=== PATIENT | male | born 1945 | race Caucasian/White ===

== ENCOUNTER 2017-09-05 15:49 | Inpatient (IN) | payer OTHER, MEDICARE ==
[~2017-09-05] VITALS: Ht 179.1 cm; Wt 93.0 kg
[~2017-09-05 15:49] MED LIST: ALPRAZOLAM0.5 M4 PO; AMLODIPINE10 MG PO; AMOXICILLIN500 MG PO; APIX5T PO; ASPIRIN CHILDRE81 MG PO; ATORVASTATIN CA10 MG PO; CELLCEPT250 MG PO; CLEOCIN HCL300 MG PO; CORDARONE 200M200 MG PO; COUMADIN 5 MG TA5 MG PO; CYCLOBENZAPRINE10 M3 PO; DICYCLOMINE HCL10 MG PO; DILTIAZEM HCL30 MG PO; ENDOCET 325 MG-1 TA1 PO; FENOFIBRATE48 MG PO; FLOMAX(MONOGRA0.4 MG PO; FLORINEF ACETA0.1 MG PO; FOSRENOL500 MG PO; HUMALOG100 UNIT/1 SC; HYDROXYCHLOROQ200 M2 PO; KEFLEX500 MG PO; LANTUS SOL100 UNIT/1 SC; LANTUS SOLOS100 U/ML SC; LISINOPRIL10 MG PO; LOPRESSOR 25MG25 MG PO; MIDODRINE HCL10 MG PO; OCUVITE WITH L1 EACH PO; PROGRAF1 MG PO; RENAGEL 800MG800 MG PO; RENVELA800 MG PO; SENSIPAR30 MG PO; SENSIPAR60 MG PO; SERTRALINE HYDR50 MG PO; SODIUM BICARBO648 MG PO; TYLENOL XSTR500 MG PO; VITAMIN B121000 MC2 PO
[2017-09-05 16:34] LABS: ABSOLUTE BASOPHIL COUNT 0 /CUMM (0.0-0.2); ABSOLUTE EOSINOPHIL COUNT 0.1 /CUMM (0.0-0.7); ABSOLUTE GRANULOCYTE CT 2.4 /CUMM (1.4-6.5); ABSOLUTE LYMPH COUNT 0.5 /CUMM (1.2-3.4); ABSOLUTE MONOCYTE COUNT 0.4 /CUMM (0.10-0.60); BASOPHIL % 0.5 % (0.0-2.0); EOSINOPHIL % 1.8 % (0-5); GRANULOCYTE % 71.7 % (42.2-75.2); HEMATOCRIT 31.6 % (42-52); MEAN CORPUSCULAR HGB 27.9 PG (27.0-31.0); MEAN CORPUSCULAR HGB CONC 32.5 G/DL (33.0-37.0); MEAN CORPUSCULAR VOLUME 86.1 FL (80.0-94.0); MEAN PLATELET VOLUME 8.4 FL (7.4-10.4); PLATELET COUNT 234 /CUMM (130-400); RBC DISTRIBUTION WIDTH 13.4 % (11.5-14.5); RED BLOOD CELL CT 3.67 /CUMM (4.70-6.10); WHITE BLOOD CELL COUNT 3.3 /CUMM (4.8-10.8)
--- NOTE | 2017-09-05 16:47 | ED ANKLE/FOOT INJURY COMPLAINT ---
History of Present Illness General Chief Complaint: Lower Extremity Problems Stated Complaint: SIB DR GREENBERG FOR EVALPRIOR TO TOE AMPUTATION Source: patient Exam Limitations: no limitations Vital Signs & Intake/Output Vital Signs & Intake/Output Vital Signs Date Time Temp Pulse Resp B/P B/P Pulse O2 O2 Flow FiO2 Mean Ox Delivery Rate 09/05 2200 97.8 60 18 178/64 96 Room Air 09/05 1603 98.8 65 18 107/63 98 Room Air Allergies Coded Allergies: NO KNOWN ALLERGIES (11/19/11) Triage Note: 71 YO MALE SENT TO ER BY DR MORGAN FOR PRE-OP FOR R GREAT TOE AMPUTATION T[place]. PTS TOE WRAPPED IN TRIAGE AND UNABLE TO VISUALIZE. Triage Nurses Notes Reviewed? yes Duration: week(s):, constant Timing: recent history Pain/Injury Location: Right: 1st toe. No Modifying Factors: none HPI: 71-year-old male comes into the emergency room with wound to his right great toe. Patient reports she was sent in here by his certified welding inspector for surgery tomorrow. Patient has had an open wound. He's had some increased swelling and redness. (Nando ROMERO,Elder) Reconcile Medications Alprazolam 0.5 MG TAB 1 TAB PO PRN ANXIETY (Reported) Amiodarone (Cordarone) 200 MG TAB 0.5 TAB PO DAILY A.fib (Reported) Amiodarone (Cordarone) 200 MG TAB 1 TAB PO DAILY HEART (Reported) Apixaban (Eliquis) 5 MG TAB 1 TAB PO BID BLOOD THINNER (Reported) Aspirin (Aspirin*) 81 MG TAB.CHEW 1 TAB PO DAILY HEALTH HEALTH (Reported) Atorvastatin Calcium 10 MG TABLET 1 TAB PO DAILY cholesterol (Reported) Bupropion HCl 100 MG TABLET 1 TAB PO DAILY pain (Reported) Calcitriol 0.25 MCG CAPSULE 1 CAP PO DAILY SUPPLEMENT (Reported) Cephalexin (Keflex) 500 MG CAP 1 TAB PO TID TOE INJURY CINACALCET HCL (Sensipar) 30 MG TAB 1 TAB PO DAILY UNKNOWN (Reported) Cu/Se/Vit A/Vit C/Vit E/Zinc (Ocuvite) 1 TAB TAB 1 TAB PO DAILY VITAMIN ( Reported) Escitalopram Oxalate (Lexapro) 10 MG TABLET 1 TAB PO DAILY anxeity (Reported) Fludrocortisone Acetate 0.1 MG TABLET 1 TAB PO DAILY SUPPLEMENT (Reported) Fludrocortisone Acetate (Florinef Acetate) 0.1 MG TAB 2 TAB PO DAILY UNKNOWN (Reported) Hydroxychloroquine Sulfate 200 MG TABLET 1 TAB PO DAILY UNKNOWN (Reported) Insulin Glargine, Recombinan (Lantus) (Unknown Strength) TIMMY (Unknown Dose) DIABETES (Reported) Insulin Lispro, Recombinant (Humalog) (Unknown Strength) RK (Unknown Dose) DIABETES (Reported) Metoprolol Succ XL (Toprol XL) 25 MG TAB 0.5 TAB PO DAILY HEART HEALTH ( Reported) Metoprolol Tartrate (Lopressor) 25 MG TAB 1 TAB PO AT BEDTIME HEART (Reported ) MIDODRINE HCL (Midodrine HCl) 10 MG TAB 1 TAB PO BID UNKNOWN (Reported) Mycophenolate Mofetil (CellCept) 250 MG CAP 4 TAB PO BID IMMUNOSUPPRESSANT ( Reported) SERTRALINE HCL (Sertraline Hydrochloride) 50 MG TAB 1 TAB PO DAILY UNKNOWN ( Reported) Sodium Bicarbonate 648 MG TAB 1 TAB PO BID UNKNOWN (Reported) Tacrolimus (Envarsus XR) 0.75 MG TAB.ER.24H 2 TAB PO DAILY TRANSPLANT ( Reported) Tacrolimus (Envarsus XR) 1 MG TAB.ER.24H 2 TAB PO DAILY TRANSPLANT (Reported) Tacrolimus (Prograf) 1 MG CAP 3 CAP PO BID UNKNOWN (Reported) Tamsulosin Hydrochloride (Flomax) 0.4 MG CAP 1 CAP PO AT BEDTIME UNKNOWN ( Reported) (Fina RANKIN,Ranjeet Hidalgo) Past History Travel History Traveled to [place] past 21 day No Medical History Any Pertinent Medical History? 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 No (Elder Maguire) Review of Systems Review of Systems Constitutional: Reports: no symptoms. EENTM: Reports: no symptoms. Respiratory: Reports: no symptoms. Cardiovascular: Reports: no symptoms. GI: Reports: no symptoms. Genitourinary: Reports: no symptoms. Musculoskeletal: Reports: see HPI. Skin: Reports: see HPI. Neurological/Psychological: Reports: no symptoms. Hematologic/Endocrine: Reports: no symptoms. Immunologic/Allergic: Reports: no symptoms. All Other Systems: Reviewed and Negative (Elder Maguire) Physical Exam Physical Exam General Appearance: well developed/nourished, mild distress Head: atraumatic Eyes: Bilateral: normal appearance. Ears, Nose, Throat: normal ENT inspection, hearing grossly normal Neck: normal inspection Cardiovascular/Respiratory: no respiratory distress Back: normal inspection Leg/Knee/Thigh Left: normal inspection Leg/Knee/Thigh Right: normal inspection Foot Right: Erythema and warmth to the dorsal aspect of right foot, open wound to right great toe, no active discharge, Tendon: normal tendon function Psychiatric: awake, alert, oriented x 3 Skin: intact, normal color, warm/dry (Elder Maguire) Progress Differential Diagnosis: arterial insufficiency, cellulitis, septic arthritis, dislocation, sprain, osteomyelitis Plan of Care: Orders Procedure Date/time Status Nothing by Mouth 09/06 B Active CBC WITHOUT DIFFERENTIAL 09/06 06 Active BASIC ELECTROLYTES PLUS BUN&CR 09/06 06 Active Weight 09/05 2251 Active Vital Signs 09/05 225 Active Teach/Educate 09/05 2250 Active Pain Treatment and Response 09/05 2250 Active Nutritional Intake, Monitor 09/05 225 Active Isolation 09/05 225 Active Intake & Output 09/05 225 Active Patient Care Conference 09/05 225 Active Activity/Ambulation 09/05 225 Active FingerStick- Glucose 09/05 2121 Active EKG 09/05 2053 Active Intake & Output 09/06 2039 Active Saline Lock 09/06 2027 Active Pathway - chart 09/06 2027 Active House Staff 09/06 2027 Active OXYGEN SETUP (GEN) 09/06 1919 Active Saline Lock 09/06 1919 Active Admit to inpatient 09/06 1919 Active Vital Signs 09/06 1919 Active Activity/Ambulation 09/06 1919 Active Code Status 09/06 1919 Active Patient Data 09/05 1907 Active BLOOD CULTURE 09/05 1612 Active WESTERGREN SED RATE 09/05 1608 Complete C-REACTIVE PROTEIN 09/05 1608 Complete COMPREHENSIVE METABOLIC PANEL 09/05 1608 Complete CBC WITHOUT DIFFERENTIAL 09/05 1608 Complete VTE Mechanical Prophylaxis 09/05 UNK Active Current Medications Sig/Ira Start time Last Medication Dose Stop Time Status Admin Atorvastatin Calcium 10 MG 1700 09/06 1700 AC (Lipitor) Heparin Sodium 5,000 UNIT Q8 09/06 1400 AC (Porcine) Alprazolam 0.5 MG DAILY 09/06 1000 AC (Xanax) 09/13 0959 Amiodarone HCl 100 MG DAILY 09/06 1000 AC (Cordarone) Aspirin 81 MG DAILY 09/06 1000 AC (Aspirin) Bupropion HCl 100 MG DAILY 09/06 1000 AC (Wellbutrin) Escitalopram Oxalate 10 MG DAILY 09/06 1000 AC (Lexapro) Fludrocortisone 100 MCG DAILY 09/06 1000 AC Acetate (Florinef 100 Mcg Tab) Hydroxychloroquine 200 MG DAILY 09/06 1000 AC Sulfate (Plaquenil 200MG Tab) Metoprolol Succinate 12.5 MG DAILY 09/06 1000 AC (Toprol XL) Insulin Aspart 0 TIDAC 09/06 0800 AC (NovoLOG) Mycophenolate Mofetil 1,000 MG BID 09/05 2200 AC 09/05 (CellCept) 2224 Dextrose/Sodium 1,000 ML .Q20H 09/05 2030 AC 09/05 Chloride 2130 (D5W-1/2 Normal Saline 1000ML) Laboratory Tests 09/05/17 1614: Anion Gap 14, Estimated GFR 46 L, BUN/Creatinine Ratio 26.7 H, Glucose 153 H, Calcium 8.6, Total Bilirubin 0.3, AST 15 L, ALT 19 L, Alkaline Phosphatase 71, C-Reactive Prot, Quant 5.7 H, Total Protein 5.7 L, Albumin 3.6, Globulin 2.1, Albumin/Globulin Ratio 1.7, CBC w Diff MAN DIFF ORDERED, RBC 3.67 L, MCV 86.1, MCH 27.9, MCHC 32.5 L, RDW 13.4, MPV 8.4, Gran % 71.7, Lymphocytes % 14.0 L, Monocytes % 12.0 H, Eosinophils % 1.8, Basophils % 0.5, Absolute Granulocytes 2.4, Segmented Neutrophils 61, Band Neutrophils 4, Absolute Lymphocytes 0.5 L, Lymphocytes 11 L, Monocytes 19 H, Absolute Monocytes 0.4, Absolute Eosinophils 0.1, Basophils 5 H, Absolute Basophils 0, Platelet Estimate VERIFIED BY SMEAR, Normocytic RBCs VERIFIED, Normochromic RBCs VERIFIED, ESR Westergren 48 H, Fld Total RBCs Counted 100 Microbiology 09/05 2057 BLOOD: Blood Culture - RECD 09/05 1613 BLOOD: Blood Culture - RECD Diagnostic Imaging: Viewed by Me: MRI. Discussed w/RAD: MRI. Radiology Impression: PATIENT: BOBBI VELARDE PRESENT AGE: 71 PATIENT ACCOUNT NO: [id number] : 46 LOCATION: [facility] ORDERING PHYSICIAN: Elder ROMERO SERVICE DATE: 09/05/17 EXAM TYPE: MRI - MRI-RT FOOT W/O BRIAN EXAMINATION: MR FOOT WITHOUT CONTRAST, RIGHT CLINICAL INFORMATION: Right great toe swelling and pain. COMPARISON: None. TECHNIQUE: MRI of the foot without contrast was obtained using routine sequences. FINDINGS: MUSCLES/TENDONS: There is fatty atrophy and edema involving the visualized forefoot muscles. This is a nonspecific finding but could be secondary to denervation injury. LIGAMENTS: Intact. ARTICULAR CARTILAGE/BONE: There is diffuse fairly intense bone marrow edema throughout the distal phalanx of the great toe suspicious for osteomyelitis. 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 JOINT FLUID/BURSA/SOFT TISSUES: There is skin irregularity and apparent skin defect at the distal end of the great toe extending to the distal tuft of the distal phalanx. IMPRESSION: 1. Skin ulcer/defect at the distal end of the great toe which appears to extend down to the surface of the distal tuft of the distal phalanx. Diffuse intense bone marrow edema in the distal phalanx suspicious for osteomyelitis. 2. 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 3. Diffuse fatty atrophy and edema involving the visualized foot muscles which is a nonspecific finding but could be secondary to denervation injury. DICTATED BY: Gatito Frazier MD DATE/TIME DICTATED:09/05/171703 MOUNTER SAXOPHONES: PETRA DATE/TIME TRANSCRIBED:09/05/171703 CONFIDENTIAL, DO NOT COPY WITHOUT APPROPRIATE AUTHORIZATION. <Electronically signed in Other Vendor System> SIGNED BY: Gatito Frazier MD 09/05/17 172 (Nando ROMERO,Elder) Departure Departure Disposition: STILL A PATIENT Condition: Stable Clinical Impression Primary Impression: Osteomyelitis of foot, right, acute Referrals: Lakeisha RANKIN,Gilbert Mark (PCP/Family) Departure Forms: Customer Survey General Discharge Information Admission Note Spoke With: Lakeisha RANKIN,Gilbert Mark Documentation of Exam: Documentation of any treatments & extenuating circumstances including Concerns Regarding Discharge (functional status, medication knowledge or non-compliance, living conditions, etc.) that warrant an admission rather than observation: Patient will require IV antibiotics. Patient is going to go to the operating room tomorrow for partial amputation. Bone culture. Infectious disease consultation. Podiatry consultation. (Nando ROMERO,Elder) PA/ASIAN STUDIES PROFESSOR Co-Sign Statement Statement: ED Attending supervision documentation- [x] I saw and evaluated the patient. I have also reviewed all the pertinent lab results and diagnostic results. I agree with the findings and the plan of care as documented in the PA's/ASIAN STUDIES PROFESSOR's documentation. pt with suspicion of osteo on right foot... pt merits admission for iv abx, further evaluation. [] I have reviewed the ED Record and agree with the PA's/ASIAN STUDIES PROFESSOR's documentation. [] Additions or exceptions (if any) to the PAs/ASIAN STUDIES PROFESSOR's note and plan are summarized below: [] (Fina RANKIN,Ranjeet Hidalgo)
--- NOTE | 2017-09-05 17:21 | MRI REPORT ---
EXAMINATION: MR FOOT WITHOUT CONTRAST, RIGHT CLINICAL INFORMATION: Right great toe swelling and pain. COMPARISON: None. TECHNIQUE: MRI of the foot without contrast was obtained using routine sequences. FINDINGS: MUSCLES/TENDONS: There is fatty atrophy and edema involving the visualized forefoot muscles. This is a nonspecific finding but could be secondary to denervation injury. LIGAMENTS: Intact. ARTICULAR CARTILAGE/BONE: There is diffuse fairly intense bone marrow edema throughout the distal phalanx of the great toe suspicious for osteomyelitis. 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 JOINT FLUID/BURSA/SOFT TISSUES: There is skin irregularity and apparent skin defect at the distal end of the great toe extending to the distal tuft of the distal phalanx. IMPRESSION: 1. Skin ulcer/defect at the distal end of the great toe which appears to extend down to the surface of the distal tuft of the distal phalanx. Diffuse intense bone marrow edema in the distal phalanx suspicious for osteomyelitis. 2. 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 3. Diffuse fatty atrophy and edema involving the visualized foot muscles which is a nonspecific finding but could be secondary to denervation injury.
--- NOTE | 2017-09-05 20:30 | History & Physical ---
Bambi Dalton MD 09/05/17 2030: General Information and HPI MD Statement: I have seen and personally examined BOBBI VELARDE and documented this H&P. The patient is a 71 year old M who presented with a patient stated chief complaint of R great toe erythema, pain, open wounds. Source of Information: patient, old records, PCP Exam Limitations: no limitations History of Present Illness: Patient is a 71-year-old male with a past medical history significant for stroke 8 years ago with no residual neuro deficit, hypertension, hyperlipidemia, A. fib on Eliquis, previous toe amputations secondary to IDDM, right wrist surgery secondary to carpal tunnel syndrome, previous dialysis patient, now renal transplant 3 years ago on multiple immunosuppressive drugs, parathyroid gland surgery that is sent in by Dr. Dye for evaluation prior to right great toe amputation. The patient states about 3 weeks ago he was doing pilates-like exercises at home when he twisted his toe. He states that "a couple layers of skin came off". He states that soon after he saw Dr. Dye who put him on antibiotics for 2 week duration. However the toe began to get more erythematous and the open wound persisted. The patient states that he has decreased sensation throughout his feet secondary to his diabetes. He denies having fever , chills, diaphoresis, nausea, vomiting, chest pain, shortness of breath. No diarrhea, constipation, cough. 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 He had an echocardiogram done in 2012 which showed mild diastolic dysfunction and an ejection fraction of 60% but with concentric hypertrophy of the left ventricular chamber that is at least moderate in severity. He has been on Eliquis for 8 years since his A. fib was diagnosed back in 2009 when he had his stroke. The patient notes no use of tobacco, drugs, alcohol. Allergies/Medications Allergies: Coded Allergies: NO KNOWN ALLERGIES (11/19/11) Home Med list Alprazolam 0.5 MG TAB 1 TAB PO PRN ANXIETY (Reported) Amiodarone (Cordarone) 200 MG TAB 0.5 TAB PO DAILY A.fib (Reported) Amiodarone (Cordarone) 200 MG TAB 1 TAB PO DAILY HEART (Reported) Apixaban (Eliquis) 5 MG TAB 1 TAB PO BID BLOOD THINNER (Reported) Aspirin (Aspirin*) 81 MG TAB.CHEW 1 TAB PO DAILY HEALTH HEALTH (Reported) Atorvastatin Calcium 10 MG TABLET 1 TAB PO DAILY cholesterol (Reported) Bupropion HCl 100 MG TABLET 1 TAB PO DAILY pain (Reported) Calcitriol 0.25 MCG CAPSULE 1 CAP PO DAILY SUPPLEMENT (Reported) Cephalexin (Keflex) 500 MG CAP 1 TAB PO TID TOE INJURY CINACALCET HCL (Sensipar) 30 MG TAB 1 TAB PO DAILY UNKNOWN (Reported) Cu/Se/Vit A/Vit C/Vit E/Zinc (Ocuvite) 1 TAB TAB 1 TAB PO DAILY VITAMIN ( Reported) Escitalopram Oxalate (Lexapro) 10 MG TABLET 1 TAB PO DAILY anxeity (Reported) Fludrocortisone Acetate 0.1 MG TABLET 1 TAB PO DAILY SUPPLEMENT (Reported) Fludrocortisone Acetate (Florinef Acetate) 0.1 MG TAB 2 TAB PO DAILY UNKNOWN (Reported) Hydroxychloroquine Sulfate 200 MG TABLET 1 TAB PO DAILY UNKNOWN (Reported) Insulin Glargine, Recombinan (Lantus) (Unknown Strength) TIMMY (Unknown Dose) DIABETES (Reported) Insulin Lispro, Recombinant (Humalog) (Unknown Strength) RK (Unknown Dose) DIABETES (Reported) Metoprolol Succ XL (Toprol XL) 25 MG TAB 0.5 TAB PO DAILY HEART HEALTH ( Reported) Metoprolol Tartrate (Lopressor) 25 MG TAB 1 TAB PO AT BEDTIME HEART (Reported ) MIDODRINE HCL (Midodrine HCl) 10 MG TAB 1 TAB PO BID UNKNOWN (Reported) Mycophenolate Mofetil (CellCept) 250 MG CAP 4 TAB PO BID IMMUNOSUPPRESSANT ( Reported) SERTRALINE HCL (Sertraline Hydrochloride) 50 MG TAB 1 TAB PO DAILY UNKNOWN ( Reported) Sodium Bicarbonate 648 MG TAB 1 TAB PO BID UNKNOWN (Reported) Tacrolimus (Envarsus XR) 0.75 MG TAB.ER.24H 2 TAB PO DAILY TRANSPLANT ( Reported) Tacrolimus (Envarsus XR) 1 MG TAB.ER.24H 2 TAB PO DAILY TRANSPLANT (Reported) Tacrolimus (Prograf) 1 MG CAP 3 CAP PO BID UNKNOWN (Reported) Tamsulosin Hydrochloride (Flomax) 0.4 MG CAP 1 CAP PO AT BEDTIME UNKNOWN ( Reported) Compliance With Home Meds: GOOD Past History Travel History Traveled to [place] past 21 day No Medical History Neurological: STROKE EENT: NONE Cardiovascular: hypertension, hyperlipidemia, AFIB (ON COUMADIN) Respiratory: NONE Gastrointestinal: NONE Hepatic: NONE Renal: renal transplant Musculoskeletal: fracture, R ARM FRACTURE Psychiatric: NONE Endocrine: IDDM Blood Disorders: NONE Cancer(s): NONE 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 Review of Systems Review of Systems Constitutional: Reports: no symptoms. EENTM: Reports: no symptoms. Cardiovascular: Reports: no symptoms. Respiratory: Reports: no symptoms. GI: Reports: no symptoms. Genitourinary: Reports: no symptoms. Musculoskeletal: Reports: see HPI. Skin: Reports: see HPI, lesions. Neurological/Psychological: Reports: no symptoms. Hematologic/Endocrine: Reports: no symptoms. Immunologic/Allergic: Reports: no symptoms. Exam & Diagnostic Data Last 24 Hrs of Vital Signs/I&O Vital Signs Date Time Temp Pulse Resp B/P B/P Pulse O2 O2 Flow FiO2 Mean Ox Delivery Rate 09/05 2306 97.4 67 16 148/62 95 Room Air 09/05 2200 97.8 60 18 178/64 96 Room Air 09/05 1603 98.8 65 18 107/63 98 Room Air Intake & Output 09/06 0800 03 0000 09/05 1600 Intake Total 50 Output Total Balance 50 Intake, IV 50 Intake, Oral 0 Patient 202 lb Weight Weight Reported by Patient Measurement Method Physical Exam General Appearance Alert, Oriented X3, Cooperative, No Acute Distress Skin No Rashes, erythema and warmth to dorsal aspect of right foot with right hallucis open wound, no discharge, no necrotic changes. Skin Temp/Moisture Exam: Warm/Dry Sepsis Skin Exam (color): Normal for Ethnicity HEENT Atraumatic, PERRLA, EOMI, Mucous Membr. moist/pink Neck Supple Cardiovascular Regular Rate, Normal S1, Normal S2, No Murmurs Lungs Clear to Auscultation, Normal Air Movement Abdomen Normal Bowel Sounds, Soft, No Hepatospenomegaly, No Masses, some tenderness to right lower abdomen where kidney transplant was placed Neurological Normal Speech, decreased sensation to lower ext bilaterally Extremities No Clubbing, No Cyanosis, No Edema Vascular Normal Pulses Sepsis Peripheral Pulse Location: Radial Sepsis Peripheral Pulse Exam: Normal Sepsis Cap Refill Exam: <2 Sec Last 24 Hrs of Labs/Joel: Laboratory Tests 09/05/171613: Anion Gap 14, Estimated GFR 46 L, BUN/Creatinine Ratio 26.7 H, Glucose 153 H, Calcium 8.6, Total Bilirubin 0.3, AST 15 L, ALT 19 L, Alkaline Phosphatase 71, C-Reactive Prot, Quant 5.7 H, Total Protein 5.7 L, Albumin 3.6, Globulin 2.1, Albumin/Globulin Ratio 1.7, PT 22.8 H, INR 2.08 H, APTT 32, CBC w Diff MAN DIFF ORDERED, RBC 3.67 L, MCV 86.1, MCH 27.9, MCHC 32.5 L, RDW 13.4, MPV 8.4, Gran % 71.7, Lymphocytes % 14.0 L, Monocytes % 12.0 H, Eosinophils % 1.8, Basophils % 0.5, Absolute Granulocytes 2.4, Segmented Neutrophils 61, Band Neutrophils 4, Absolute Lymphocytes 0.5 L, Lymphocytes 11 L, Monocytes 19 H, Absolute Monocytes 0.4, Absolute Eosinophils 0.1, Basophils 5 H, Absolute Basophils 0, Platelet Estimate VERIFIED BY SMEAR, Normocytic RBCs VERIFIED, Normochromic RBCs VERIFIED, ESR Westergren 48 H, Fld Total RBCs Counted 100 Microbiology 09/05 2057 BLOOD: Blood Culture - RECD 09/05 1613 BLOOD: Blood Culture - RECD Assessment/Plan Assessment: Patient is a 71-year-old male with a past medical history significant for stroke 8 years ago with no residual neuro deficit, hypertension, hyperlipidemia, A. fib on Eliquis, previous toe amputations secondary to IDDM, right wrist surgery secondary to carpal tunnel syndrome, previous dialysis patient, now renal transplant 3 years ago on multiple immunosuppressive drugs, parathyroid gland surgery that is sent in by Dr. Dye for evaluation prior to right great toe amputation. Patient failed antibiotic treatment 1 week ago. He has no systemic symptoms. In the ED, he is afebrile, blood pressure fairly stable, good oxygen saturation on room air, pulse in the 60s, respiratory rate around 18. Labs showed a WBC count of 3.3, hemoglobin of 10.3 with a normal MCV. BUN 40, creatinine 1.5, CRP 5.7, ESR 48. Foot MRI showed suspicion of osteomyelitis and evidence of innervation injury. The patient will go to the OR with Dr. Dye for debridement of the wound and potential amputation. This is a low risk surgery. The patient has no history of VT, no history of congestive heart failure except mild diastolic dysfunction, normal creatinine, but does have a history of stroke and is on insulin. Thus the patient has class III risk which corresponds to a risk of major cardiac event of 6.6%. Plan Evidence of osteomyelitis in right hallucis -Patient will be nothing by mouth at midnight for debridement with Dr. Dye tomorrow -Patient will be put on Accu-Cheks and insulin to reflect this -Follow blood cultures 2 -PT/PTT in preparation for surgery -EKG History of renal transplant -Continue patient on hydroxychloroquine 200 mg daily -Continue Mycophenolate 1 g twice a day History of atrial fibrillation -Hold patient's Eliquis as he will go for surgery tomorrow -Give patient amiodarone 100 mg daily IDDM -Patient will be nothing by mouth and dosed insulin accordingly -D5 half-normal saline at a rate of 50 -Please switch the order when patient is eating after surgery Chronic medical problems -Start patient on 10 mg Lipitor for his hyperlipidemia -Start patient on metoprolol 12.5 daily for his hypertension -Start patient on Lexapro 10 mg and Wellbutrin 100 mg and Xanax 0.5 when necessary for anxiety -Start patient on 81 mg aspirin for heart health DVT prophylaxis with Alps Nothing by mouth for surgery Full code DVT prophylaxis: Patient was given heparin tonight but will be held tomorrow as patient will go for surgery. As Ranked By This Provider Problem List: 1. Osteomyelitis of foot, right, acute 2. Injury of toe Core Measures/Misc (03/20) Acute Coronary Syndrome ACS Diagnosis: No Congestive Heart Failure Congestive Heart Failure Diagnosis No Cerebrovascular Accident CVA/TIA Diagnosis: No VTE (View Protocol) VTE Risk Factors Trauma No Mechanical VTE Prophylaxis d/t N/A MechProphylax Ordered No VTE Pharm Prophylaxis d/t Surgical Contraindication Sepsis (View protocol) Sepsis Present: No Kasie Cerda 09/06/17 0741: Resident Review Statement Resident Statement: examined this patient, discussed with buyer internship, agreed with buyer internship, discussed with family, reviewed EMR data (avail), reviewed images, amended to note [facility]06[facility]17 7090: Attending MD Review Statement Attending Statement Attending MD Statement: examined this patient, discuss w/resident/PA/CARBONATION EQUIPMENT OPERATOR, agreed w/resident/PA/CARBONATION EQUIPMENT OPERATOR, discussed with family, reviewed EMR data (avail), discussed with nursing, discussed with case mgmt, reviewed images, amended to note Attending Assessment/Plan: Seen and examined independently Pt s/p renal transplant with infected toe with osteo DM insulin requiring PVD Pafib on eliquis Depression REC ADmit ID eval Hold abx cont all meds HOld anticoag IVF
[2017-09-05] MEDS ORDERED: ATORVASTATIN CA10 M1 PO (21:06)
[2017-09-05] MEDS ORDERED: FLUDROCORTISON0.1 M1 PO (21:09)
[2017-09-05] MEDS ORDERED: TOPROL XL25 M1 PO (21:12)
[2017-09-05] MEDS ORDERED: ENVARSUS XR0.75 MG PO (21:14)
[2017-09-05] MEDS ORDERED: ENVARSUS XR1 MG PO (21:14)
[2017-09-05] MEDS ORDERED: ASPIRIN EC81 M1 PO (21:15)
[2017-09-05] MEDS ORDERED: CALCITRIOL0.25 MC1 PO (21:16)
[2017-09-05] MEDS ORDERED: AMIODARONE HCL200 M1 PO (21:18)
[2017-09-05] MEDS ORDERED: BUPROPION HCL100 M2 PO (21:19)
[2017-09-05] MEDS ORDERED: LEXAPRO20 M1 PO (21:21)
[2017-09-05 23:06] VITALS: BP 148/62
[2017-09-05 23:19] LABS: PT 22.8 SEC (9.4-12.5); PTT 32 SEC (25-37)
[2017-09-06 07:22] VITALS: BP 170/70
[2017-09-06 08:45] LABS: ABSOLUTE BASOPHIL COUNT 0 /CUMM (0.0-0.2); ABSOLUTE EOSINOPHIL COUNT 0.1 /CUMM (0.0-0.7); ABSOLUTE LYMPH COUNT 0.5 /CUMM (1.2-3.4); ABSOLUTE MONOCYTE COUNT 0.4 /CUMM (0.10-0.60); BASOPHIL % 0.9 % (0.0-2.0); EOSINOPHIL % 2.8 % (0-5); GRANULOCYTE % 67.2 % (42.2-75.2); HEMATOCRIT 31.3 % (42-52); MEAN CORPUSCULAR HGB CONC 33.1 G/DL (33.0-37.0); MEAN CORPUSCULAR VOLUME 84.6 FL (80.0-94.0); MEAN PLATELET VOLUME 8.7 FL (7.4-10.4); PLATELET COUNT 212 /CUMM (130-400); RBC DISTRIBUTION WIDTH 13.3 % (11.5-14.5)
--- NOTE | 2017-09-06 11:14 | Operative Report ---
Operative/Inv Procedure Report Surgery Date: 09/06/17 Name of Procedure: 1 open incision and drainage deep to the deep fascia with exposure of the extensor and flexor tendon and tendon sheath multiple sites right foot 2 hallux amputation right foot 3 intraoperative administration of ankle block anesthesia 4 excisional debridement Pre-Operative Diagnosis: 1 open necrotic wound right foot 2 osteomyelitis right foot 3 diabetic peripheral neuropathy Post-Operative Diagnosis: The same Estimated Blood Loss: less than 50ml Surgeon/Wave Guide Assembler: ROB PITTMAN DPM Anesthesia: moderate sedation, block Operative/Procedure Note Note: After obtaining informed consent the patient was brought to the operating room and placed on the operating table in the supine position. The patient isn't securely fastened to the operating table utilizing safety belt. After administration of IV sedation, 10 mL of 0.5% Marcaine plain was infiltrated about the patient's right ankle. The right foot and ankle within scrubbed prepped and draped in usual aseptic manner. Attention directed the distal right foot, where a large full-thickness chronic was identified. A 15 blade visualized sharply revised skin margins. Dissection was then carried down deep to the D fashion with exposure of the extensor and flexor tendon and tendon sheath multiple sites, both flexion and distally. All necrotic nonviable infected tissue sharply evacuated wound bed. Dissection and continued proximally to the joint where the digit was disarticulated and passed from the operative field. Specimen was sent for both microbiologic and pathologic inspection. Nipple was then irrigated with 3 L normal sterile saline infusion 50,000 units of bacitracin. Following this, the foot was redraped and surgeon's top was changed clean gloves. Any bleeding vessels identified were cauterized a lace encountered. Wound was then packed with wet-to-dry dressing and 3-0 nylon retention sutures were placed. The foot was dressed with 4 x 4's Kerlix and Qasim wrap. Patient noted tolerate both procedure and anesthesia well and the patient was transported from the operating room to recovery with vital signs stable.
--- NOTE | 2017-09-06 11:19 | PN- Housestaff ---
Yesenia Klein MD,Ami 09/06/17 1118: Subjective Follow-up For: R Toe osteomyelitis Subjective: Patient visited today, was lying in bed comfortably in no acute distress, was alert and oriented. Admitted overnight for R toe osteomyelitis and is NPO. No fever or chills, no shortness of breathing, no chest pain, no other events. ID consult was placed considering h/o renal transplant. Review of Systems Constitutional: Reports: see HPI. Objective Last 24 Hrs of Vital Signs/I&O Vital Signs Date Time Temp Pulse Resp B/P B/P Pulse O2 O2 Flow FiO2 Mean Ox Delivery Rate 09/06 1238 98.0 54 20 179/86 98 Room Air 09/06 0936 60 149/74 09/06 0934 60 149/74 09/06 0722 97.8 59 18 170/70 98 Room Air / 2306 97.4 67 16 148/62 95 Room Air / 2200 97.8 60 18 178/64 96 Room Air / 1603 98.8 65 18 107/63 98 Room Air Intake & Output 09/06 1600 09/06 0800 09/06 0000 Intake Total 400 50 Output Total Balance 400 50 Intake, IV 400 50 Intake, Oral 0 0 Patient 216 lb 202 lb Weight Weight Reported by Patient Measurement Method Physical Exam General Appearance: Alert, Oriented X3, Cooperative, No Acute Distress Skin: R toe chronic wound, No discharge or necrotic tissue Skin Temp/Moisture Exam: Warm/Dry Sepsis Skin Exam (color): Normal for Ethnicity HEENT: Atraumatic, EOMI, Mucous Membr. moist/pink Cardiovascular: Regular Rate, Normal S1, Normal S2 Lungs: Clear to Auscultation, Normal Air Movement Abdomen: Soft, No Tenderness Current Medications: Current Medications Sig/Ira Start time Last Medication Dose Route Stop Time Status Admin Alprazolam 0.5 MG DAILY 09/06 1000 AC PO 09/13 0959 Amiodarone HCl 100 MG DAILY 09/06 1000 AC 09/06 PO 0934 Apixaban 5 MG BID 09/07 1000 UNVr PO Aspirin 81 MG DAILY 09/06 1000 AC 09/06 PO 0933 Atorvastatin Calcium 10 MG 1700 / 1700 AC PO Bupropion HCl 100 MG DAILY 09/06 1000 AC 09/06 PO 0936 Dextrose/Sodium 1,000 ML .Q20H 09/05 2030 AC 09/05 Chloride IV 2130 Escitalopram Oxalate 10 MG DAILY 09/06 1000 AC PO Fludrocortisone 100 MCG DAILY 09/06 1000 AC 09/06 Acetate PO 0934 Heparin Sodium 5,000 UNIT Q8 09/06 1400 AC (Porcine) SC Heparin Sodium 0 .STK-MED ONE 09/05 2131 DC (Porcine) .ROUTE Hydroxychloroquine 200 MG DAILY 09/06 1000 AC 09/06 Sulfate PO 0935 Insulin Aspart 0 TIDAC 09/06 1700 AC SC Insulin Aspart 0 TIDAC 09/06 0800 CAN SC Insulin Human Regular 0 Q6 09/06 0022 DC 09/06 SC 0606 Lorazepam 0 .STK-MED ONE 09/05 1622 DC PO Lorazepam 1 MG ONE ONE 09/05 1615 DC 09/05 PO 09/05 1616 1617 Metoprolol Succinate 12.5 MG DAILY 09/06 1000 AC 09/06 PO 0936 Mycophenolate Mofetil 1,000 MG BID 09/05 2200 AC 09/06 PO 0933 Last 24 Hrs of Lab/Joel Results Last 24 Hrs of Labs/Mics: Laboratory Tests 09/06/17 0738: Anion Gap 12, Estimated GFR 55 L, BUN/Creatinine Ratio 26.9 H, CBC w Diff NO MAN DIFF REQ, RBC 3.70 L, MCV 84.6, MCH 28.0, MCHC 33.1, RDW 13.3, MPV 8.7, Gran % 67.2, Lymphocytes % 16.9 L, Monocytes % 12.2 H, Eosinophils % 2.8, Basophils % 0.9, Absolute Granulocytes 2.0, Absolute Lymphocytes 0.5 L, Absolute Monocytes 0.4, Absolute Eosinophils 0.1, Absolute Basophils 0 09/05/17 1614: Anion Gap 14, Estimated GFR 46 L, BUN/Creatinine Ratio 26.7 H, Glucose 153 H, Calcium 8.6, Total Bilirubin 0.3, AST 15 L, ALT 19 L, Alkaline Phosphatase 71, C-Reactive Prot, Quant 5.7 H, Total Protein 5.7 L, Albumin 3.6, Globulin 2.1, Albumin/Globulin Ratio 1.7, PT 22.8 H, INR 2.08 H, APTT 32, CBC w Diff MAN DIFF ORDERED, RBC 3.67 L, MCV 86.1, MCH 27.9, MCHC 32.5 L, RDW 13.4, MPV 8.4, Gran % 71.7, Lymphocytes % 14.0 L, Monocytes % 12.0 H, Eosinophils % 1.8, Basophils % 0.5, Absolute Granulocytes 2.4, Segmented Neutrophils 61, Band Neutrophils 4, Absolute Lymphocytes 0.5 L, Lymphocytes 11 L, Monocytes 19 H, Absolute Monocytes 0.4, Absolute Eosinophils 0.1, Basophils 5 H, Absolute Basophils 0, Platelet Estimate VERIFIED BY SMEAR, Normocytic RBCs VERIFIED, Normochromic RBCs VERIFIED, ESR Westergren 48 H, Fld Total RBCs Counted 100 Microbiology 09/06 1050 EXTREMITIE: Gross Specimen Examination - RECD 09/06 105 EXTREMITIE: Gram Stain - RECD 09/05 2057 BLOOD: Blood Culture - RES 09/05 161 BLOOD: Blood Culture - RES Assessment/Plan Assessment: Patient is a 71-year-old male presented for surgery due to right toe osteomyelitis failed antibiotic treatment 1 week ago PMH: stroke 8 years ago with no residual neuro deficit, hypertension, hyperlipidemia, A. 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 Labs showed a WBC count of 3.3, hemoglobin of 10.3 with a normal MCV. BUN 40, creatinine 1.5, CRP 5.7, ESR 48. Foot MRI showed suspicion of osteomyelitis and evidence of innervation injury. The patient will go to the OR with Dr. Dye for debridement of the wound and potential amputation. This is a low risk surgery. The patient has no history of SD, no history of congestive heart failure except mild diastolic dysfunction, normal creatinine, but does have a history of stroke and is on insulin. Thus the patient has class III risk which corresponds to a risk of major cardiac event of 6.6%. Patient was admitted to general medicine floor for management of following conditions: Evidence of osteomyelitis in right hallucis Patient underwent surgery on 09/06/2017: 1 open incision and drainage deep to the deep fascia with exposure of the extensor and flexor tendon and tendon sheath multiple sites right foot 2 hallux amputation right foot 3 intraoperative administration of ankle block anesthesia 4 excisional debridement -continue admit to GM floor -Follow blood cultures 2 -ID consult regarding antibtiotic treatment History of renal transplant -Continue patient on hydroxychloroquine 200 mg daily -Continue Mycophenolate 1 g twice a day History of atrial fibrillation -Hold patient's Eliquis, plan to start tomorrow AM -Give patient amiodarone 100 mg daily IDDM -Accuchecks and sliding scale Chronic medical problems -Start patient on 10 mg Lipitor for his hyperlipidemia -Start patient on metoprolol 12.5 daily for his hypertension -Start patient on Lexapro 10 mg and Wellbutrin 100 mg and Xanax 0.5 when necessary for anxiety -Start patient on 81 mg aspirin for heart health DVT prophylaxis with Alps Diabetic diet Full code Problem List: 1. Osteomyelitis of foot, right, acute Pain Ratin Pain Location: right foot Pain Goal: Pain 4 or less Pain Plan: COntinue current plan Tomorrow's Labs & Rationales: BEP CBC Lakeisha RANKIN,[facility] 09/06/17 1238: Attending MD Review Statement Attending Statement Attending MD Statement: examined this patient, discuss w/resident/PA/MAP COLORER, agreed w/resident/PA/MAP COLORER, discussed with family, reviewed EMR data (avail), discussed with nursing, discussed with case mgmt, reviewed images, amended to note Attending Assessment/Plan: Stable TO the OR today ID to see Abx after the procedure will follow Strict sugar control
[2017-09-06 12:38] VITALS: BP 179/86
[2017-09-06 14:42] VITALS: BP 110/70; BP 130/75
--- NOTE | 2017-09-06 16:53 | Cons- Infect Disease ---
General Information and HPI Consulting Request Date of Consult: 09/06/17 Requested By: Shahana Canada MD Reason for Consult: Osteomyelitis of the right great toe Source of Information: patient History of Present Illness: This is a 71-year-old man with a history of diabetes, end-stage renal disease, previously on dialysis and status post a renal transplant 3 years prior to admission, maintained on immunosuppressive therapy with Tacrolimus and CellCept, hypertension, hyperlipidemia, status post CVA 8 years prior to admission with no residual deficit, atrial fibrillation, maintained on Eliquis, status post amputations of the left third and right third and partial fourth toes, status post an injury to the great toe several weeks prior to admission, treated with Augmentin for one week without improvement, admitted on September 05 with increased erythema and a nonhealing open wound on the distal aspect of the right great toe with no fevers, chills or other constitutional symptoms. On admission he was afebrile. Laboratory data revealed a white blood cell count of 3000, BUN/ creatinine 40 and 1.5, with normal liver enzymes, INR 2.08. MRI of the right foot revealed diffuse intense bone marrow edema in the distal phalanx of the great toe suspicious for osteomyelitis. He was followed off antibiotics and has remained afebrile since admission. This morning he was taken to the OR for amputation of the toe. At present he offers no complaints. Allergies/Medications Allergies: Coded Allergies: NO KNOWN ALLERGIES (11/19/11) Home Med List: Alprazolam 0.5 MG TAB 1 TAB PO PRN ANXIETY (Reported) Amiodarone (Cordarone) 200 MG TAB 0.5 TAB PO DAILY A.fib (Reported) Amiodarone (Cordarone) 200 MG TAB 1 TAB PO DAILY HEART (Reported) Apixaban (Eliquis) 5 MG TAB 1 TAB PO BID BLOOD THINNER (Reported) Aspirin (Aspirin*) 81 MG TAB.CHEW 1 TAB PO DAILY HEALTH HEALTH (Reported) Atorvastatin Calcium 10 MG TABLET 1 TAB PO DAILY cholesterol (Reported) Bupropion HCl 100 MG TABLET 1 TAB PO DAILY pain (Reported) Calcitriol 0.25 MCG CAPSULE 1 CAP PO DAILY SUPPLEMENT (Reported) Cephalexin (Keflex) 500 MG CAP 1 TAB PO TID TOE INJURY CINACALCET HCL (Sensipar) 30 MG TAB 1 TAB PO DAILY UNKNOWN (Reported) Cu/Se/Vit A/Vit C/Vit E/Zinc (Ocuvite) 1 TAB TAB 1 TAB PO DAILY VITAMIN ( Reported) Escitalopram Oxalate (Lexapro) 10 MG TABLET 1 TAB PO DAILY anxeity (Reported) Fludrocortisone Acetate 0.1 MG TABLET 1 TAB PO DAILY SUPPLEMENT (Reported) Fludrocortisone Acetate (Florinef Acetate) 0.1 MG TAB 2 TAB PO DAILY UNKNOWN (Reported) Hydroxychloroquine Sulfate 200 MG TABLET 1 TAB PO DAILY UNKNOWN (Reported) Insulin Glargine, Recombinan (Lantus) (Unknown Strength) TIMMY (Unknown Dose) DIABETES (Reported) Insulin Lispro, Recombinant (Humalog) (Unknown Strength) RK (Unknown Dose) DIABETES (Reported) Metoprolol Succ XL (Toprol XL) 25 MG TAB 0.5 TAB PO DAILY HEART HEALTH ( Reported) Metoprolol Tartrate (Lopressor) 25 MG TAB 1 TAB PO AT BEDTIME HEART (Reported ) MIDODRINE HCL (Midodrine HCl) 10 MG TAB 1 TAB PO BID UNKNOWN (Reported) Mycophenolate Mofetil (CellCept) 250 MG CAP 4 TAB PO BID IMMUNOSUPPRESSANT ( Reported) SERTRALINE HCL (Sertraline Hydrochloride) 50 MG TAB 1 TAB PO DAILY UNKNOWN ( Reported) Sodium Bicarbonate 648 MG TAB 1 TAB PO BID UNKNOWN (Reported) Tacrolimus (Envarsus XR) 0.75 MG TAB.ER.24H 2 TAB PO DAILY TRANSPLANT ( Reported) Tacrolimus (Envarsus XR) 1 MG TAB.ER.24H 2 TAB PO DAILY TRANSPLANT (Reported) Tacrolimus (Prograf) 1 MG CAP 3 CAP PO BID UNKNOWN (Reported) Tamsulosin Hydrochloride (Flomax) 0.4 MG CAP 1 CAP PO AT BEDTIME UNKNOWN ( Reported) Past History Travel History Traveled to [place] past 21 day No Medical History Neurological: STROKE EENT: NONE Cardiovascular: hypertension, hyperlipidemia, AFIB (ON COUMADIN) Respiratory: NONE Gastrointestinal: NONE Hepatic: NONE Renal: renal transplant Musculoskeletal: fracture, R ARM FRACTURE Psychiatric: NONE Endocrine: IDDM Blood Disorders: NONE Cancer(s): NONE 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 History of MRSA: No History of VRE: No History of CDIFF: No Isolation History: Standard Influenza Vaccine: 05/13/17 Surgical History Surgical History: RENAL TRANSPLANT right and left toe amputations secondary to IDDM Psychosocial History Smoking Status: Former Smoker Review of Systems Review of Systems All Other Systems: Reviewed and Negative Exam & Diagnostic Data Last 24 Hrs of Vital Signs/I&O Vital Signs Date Time Temp Pulse Resp B/P B/P Pulse O2 O2 Flow FiO2 Mean Ox Delivery Rate 09/06 1442 98.1 63 18 130/75 95 Room Air 09/06 1238 98.0 54 20 179/86 98 Room Air 09/06 0936 60 149/74 09/06 0934 60 149/74 09/06 0722 97.8 59 18 170/70 98 Room Air 09/05 2306 97.4 67 16 148/62 95 Room Air 09/05 2200 97.8 60 18 178/64 96 Room Air Intake & Output 09/06 1600 09/06 0800 09/06 0000 Intake Total 875 400 50 Output Total 200 Balance 675 400 50 Intake, IV 375 400 50 Intake, Oral 500 0 0 Output, Urine 200 Patient 216 lb 202 lb Weight Weight Reported by Patient Measurement Method Physical Exam Other Physical Findings: Afebrile. He is awake and alert in no acute distress. Skin reveals no rash. HEENT negative. Neck is supple with no adenopathy. Lungs are clear. Heart regular rhythm with no murmur. Abdomen is soft, nontender with positive bowel sounds. Back no CVA tenderness. Extremities right foot dressing intact; chronic venous stasis changes left leg greater than right leg; pulses 1+ on the left; AV fistula in the left forearm with a positive bruit and thrill. Neuro is without focality. Last 24 Hours of Lab Results: Laboratory Tests 09/06 0738 Chemistry Sodium (137 - 145 mmol/L) 146 H Potassium (3.5 - 5.1 mmol/L) 4.2 Chloride (98 - 107 mmol/L) 107 Carbon Dioxide (22 - 30 mmol/L) 26 Anion Gap (5 - 16) 12 BUN (9 - 20 mg/dL) 35 H Creatinine (0.7 - 1.2 mg/dL) 1.3 H Estimated GFR (>60 ml/min) 55 L BUN/Creatinine Ratio (7 - 25 %) 26.9 H Hematology CBC w Diff NO MAN DIFF REQ WBC (4.8 - 10.8 /CUMM) 3.0 L RBC (4.70 - 6.10 /CUMM) 3.70 L Hgb (14.0 - 18.0 G/DL) 10.4 L Hct (42 - 52 %) 31.3 L MCV (80.0 - 94.0 FL) 84.6 MCH (27.0 - 31.0 PG) 28.0 MCHC (33.0 - 37.0 G/DL) 33.1 RDW (11.5 - 14.5 %) 13.3 Plt Count (130 - 400 /CUMM) 212 MPV (7.4 - 10.4 FL) 8.7 Gran % (42.2 - 75.2 %) 67.2 Lymphocytes % (20.5 - 51.1 %) 16.9 L Monocytes % (1.7 - 9.3 %) 12.2 H Eosinophils % (0 - 5 %) 2.8 Basophils % (0.0 - 2.0 %) 0.9 Absolute Granulocytes (1.4 - 6.5 /CUMM) 2.0 Absolute Lymphocytes (1.2 - 3.4 /CUMM) 0.5 L Absolute Monocytes (0.10 - 0.60 /CUMM) 0.4 Absolute Eosinophils (0.0 - 0.7 /CUMM) 0.1 Absolute Basophils (0.0 - 0.2 /CUMM) 0 Last 24 Hours of Joel Results: Blood cultures 2 September 05 negative OR culture September 06 labeled right foot bone pending Diagnostic Data Recent Imaging Findings: MRI of the right foot September 05 reveals diffuse intense bone marrow edema in the distal phalanx of the great toe suspicious for osteomyelitis Assessment/Plan Assessment/Plan Impression: This is a 71-year-old man with a history of diabetes, end-stage renal disease, previously on dialysis and status post a renal transplant 3 years prior to admission, maintained on immunosuppressive therapy with Tacrolimus and CellCept, atrial fibrillation, maintained on Eliquis, status post an injury to the right great toe several weeks prior to admission admitted on September 05 with increased erythema and a nonhealing open wound on the distal aspect of the right great toe , found to be afebrile with a normal white blood cell count and with an MRI revealing evidence for osteomyelitis of the distal phalanx of the right great toe, status post amputation of the great toe earlier today. After discussion with Podiatry it appears that all of his infected bone has been removed. He may, however, have residual soft tissue infection and, therefore, he can be covered with antibiotics for this possibility. Suggestion: 1. Follow-up OR culture 2. Vascular surgery evaluation 3. Begin Unasyn 1.5 g IV every 6 hours Consult Acknowledgment - Thank you for your consult request.
[2017-09-06 21:53] VITALS: BP 165/70
[2017-09-07 07:31] VITALS: BP 116/80
--- NOTE | 2017-09-07 07:55 | PN- Housestaff ---
See Addendum Subjective Follow-up For: Osteomyelitis of right toe status post surgery Subjective: Patient visited today, was lying in bed comfortably in no acute distress, was alert and oriented. Is POD1 after surgery. Pain controlled. IV Unasyn was started after surgery based on ID recommendations. No fever or chills, no shortness of breathing, no chest pain, no other events. Eliquis was restarted for A. fib this morning. Patient had some concerns regarding blood sugar levels, including restarting long-acting insulin. We will start on Levemir 13 units twice a day (26 U Lantus at home). Review of Systems Constitutional: Reports: see HPI. Objective Last 24 Hrs of Vital Signs/I&O Vital Signs Date Time Temp Pulse Resp B/P B/P Pulse O2 O2 Flow FiO2 Mean Ox Delivery Rate 09/07 913 60 116/80 09/07 0914 60 116/80 09/07 0731 97.5 51 20 116/80 95 Room Air / 2153 97.9 57 18 165/70 96 Room Air 09/06 1442 98.1 63 18 130/75 95 Room Air / 1238 98.0 54 20 179/86 98 Room Air Intake & Output / 1600 09/07 0800 / 0000 Intake Total 650 350 Output Total 1400 625 Balance -750 -275 Intake, IV 250 150 Intake, Oral 400 200 Output, Urine 1400 625 Patient 217 lb Weight Physical Exam General Appearance: Alert, Oriented X3, Cooperative, No Acute Distress Skin: Right foot s/p surger, dressing in place. Skin Temp/Moisture Exam: Warm/Dry Sepsis Skin Exam (color): Normal for Ethnicity HEENT: Atraumatic, EOMI, Mucous Membr. moist/pink Cardiovascular: Normal S1, Normal S2, irreg irreg Lungs: Clear to Auscultation, Normal Air Movement Abdomen: Soft, No Tenderness Extremities: as noted above, no sign of fresh bleeding. Current Medications: Current Medications Sig/Ira Start time Last Medication Dose Route Stop Time Status Admin Acetaminophen 650 MG Q6P PRN 09/06 1636 AC 09/06 PO 1716 Alprazolam 0.5 MG DAILY NEEDED PRN 09/06 1513 AC 09/06 PO 09/13 1512 2323 Alprazolam 0.5 MG DAILY 09/06 1000 DC PO 03 0959 Amiodarone HCl 100 MG DAILY 09/06 1000 AC 09/07 PO 0914 Ampicillin Sodium/ 1,500 MG Q6 09/06 1800 AC 09/07 Sulbactam Sodium IV 0517 Sodium Chloride 100 ML Apixaban 5 MG BID 09/07 1000 AC 09/07 PO 0913 Aspirin 81 MG DAILY 09/06 1000 AC 09/07 PO 0914 Atorvastatin Calcium 10 MG 1700 09/06 1700 AC 09/06 PO 1715 Bupropion HCl 100 MG DAILY 09/06 1000 AC 09/07 PO 0913 Dextrose/Sodium 1,000 ML .Q20H 09/05 2030 DC 09/05 Chloride IV 2130 Escitalopram Oxalate 10 MG 2200 09/06 2200 AC 09/06 PO 2155 Escitalopram Oxalate 10 MG DAILY 09/06 1000 DC PO Fludrocortisone 100 MCG DAILY 09/06 1000 AC 09/07 Acetate PO 0918 Heparin Sodium 5,000 UNIT Q8 09/06 1400 DC 09/07 (Porcine) SC 0516 Hydroxychloroquine 200 MG DAILY 09/06 1000 AC 09/07 Sulfate PO 0914 Insulin Aspart 0 TIDAC 09/06 1700 AC 09/07 SC 0913 Insulin Detemir 13 UNITS BID 09/07 1000 AC 09/07 SC 1044 Insulin Human Regular 0 Q6 09/06 0022 DC 09/06 SC 0606 Metoprolol Succinate 12.5 MG DAILY 09/06 1000 AC 09/07 PO 0914 Mycophenolate Mofetil 1,000 MG BID 09/05 2200 AC 09/07 PO 0914 Oxycodone HCl 5 MG Q6P PRN 09/06 1636 AC PO Oxycodone/ 2 TAB Q6P PRN 09/06 1637 AC Acetaminophen PO Patient Medication 1 ED ONE ONE 09/07 1030 DC 09/07 Teaching ED 09/07 1031 1044 Patient Medication 1 ED ONE ONE 09/06 1645 LA Teaching ED 09/06 1646 Last 24 Hrs of Lab/Joel Results Last 24 Hrs of Labs/Mics: Laboratory Tests 09/07/17 0735: Anion Gap 11, Estimated GFR > 60, BUN/Creatinine Ratio 24.5, CBC w Diff NO MAN DIFF REQ, RBC 3.84 L, MCV 85.0, MCH 28.3, MCHC 33.3, RDW 13.5, MPV 8.6, Gran % 59.9, Lymphocytes % 24.3, Monocytes % 11.1 H, Eosinophils % 3.9, Basophils % 0.8, Absolute Granulocytes 1.5, Absolute Lymphocytes 0.6 L, Absolute Monocytes 0.3, Absolute Eosinophils 0.1, Absolute Basophils 0 Assessment/Plan Assessment: Patient is a 71-year-old male presented for surgery due to right toe osteomyelitis failed antibiotic treatment 1 week ago PMH: stroke 8 years ago with no residual neuro deficit, hypertension, hyperlipidemia, A. 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 Labs showed a WBC count of 3.3, hemoglobin of 10.3 with a normal MCV. BUN 40, creatinine 1.5, CRP 5.7, ESR 48. Foot MRI showed suspicion of osteomyelitis and evidence of innervation injury. Patient was admitted to general medicine floor for management of following conditions: Evidence of osteomyelitis in right hallucis Patient underwent surgery on 09/06/2017: 1 open incision and drainage deep to the deep fascia with exposure of the extensor and flexor tendon and tendon sheath multiple sites right foot 2 hallux amputation right foot 3 intraoperative administration of ankle block anesthesia 4 excisional debridement -continue admit to GM floor -Follow blood cultures 2 -Follow ID - Continue Unasyn per ID History of renal transplant -Continue patient on hydroxychloroquine 200 mg daily -Continue Mycophenolate 1 g twice a day History of atrial fibrillation -restarted Eliquis -Give patient amiodarone 100 mg daily IDDM -Accuchecks and sliding scale Chronic medical problems -Start patient on 10 mg Lipitor for his hyperlipidemia -Start patient on metoprolol 12.5 daily for his hypertension -Start patient on Lexapro 10 mg and Wellbutrin 100 mg and Xanax 0.5 when necessary for anxiety -Start patient on 81 mg aspirin for heart health DVT prophylaxis with Alps Diabetic diet Full code Problem List: 1. Osteomyelitis of foot, right, acute 2. AFLUTTER WITH RVR Pain Ratin Pain Location: Right foot Pain Goal: Pain 4 or less Pain Plan: Continue current plan Tomorrow's Labs & Rationales: YAO KHOURY
[2017-09-07 08:36] LABS: ABSOLUTE BASOPHIL COUNT 0 /CUMM (0.0-0.2); ABSOLUTE EOSINOPHIL COUNT 0.1 /CUMM (0.0-0.7); ABSOLUTE GRANULOCYTE CT 1.5 /CUMM (1.4-6.5); ABSOLUTE LYMPH COUNT 0.6 /CUMM (1.2-3.4); ABSOLUTE MONOCYTE COUNT 0.3 /CUMM (0.10-0.60); BASOPHIL % 0.8 % (0.0-2.0); EOSINOPHIL % 3.9 % (0-5); GRANULOCYTE % 59.9 % (42.2-75.2); HEMATOCRIT 32.6 % (42-52); MEAN CORPUSCULAR HGB 28.3 PG (27.0-31.0); MEAN CORPUSCULAR HGB CONC 33.3 G/DL (33.0-37.0); MEAN PLATELET VOLUME 8.6 FL (7.4-10.4); PLATELET COUNT 215 /CUMM (130-400); RBC DISTRIBUTION WIDTH 13.5 % (11.5-14.5); RED BLOOD CELL CT 3.84 /CUMM (4.70-6.10); WHITE BLOOD CELL COUNT 2.5 /CUMM (4.8-10.8)
[2017-09-07 14:21] VITALS: BP 173/78
[2017-09-07 19:56] VITALS: BP 150/70
[2017-09-07 21:36] VITALS: BP 167/72
[2017-09-08 04:25] VITALS: BP 148/74
[2017-09-08 06:26] VITALS: BP 140/58
--- NOTE | 2017-09-08 07:54 | PN- Housestaff ---
Subjective Follow-up For: Osteomyelitis of right toe status post surgery Subjective: Patient visited today, was lying in bed comfortably in no acute distress, was alert and oriented. reported to have poor sleep quality overnight due to being nervous about medication. Xanax home dose TID administered. Dosing adjusted per patient home medication. Is POD2 after surgery. Pain controlled. IV Unasyn was started after surgery based on ID recommendations. No fever or chills, no shortness of breathing, no chest pain, no other events. Intial culture, GNR and SA. Review of Systems Constitutional: Reports: see HPI. Objective Last 24 Hrs of Vital Signs/I&O Vital Signs Date Time Temp Pulse Resp B/P B/P Pulse O2 O2 Flow FiO2 Mean Ox Delivery Rate 09/08 0847 51 140/70 09/08 0834 51 140/58 09/08 0626 97.6 51 20 140/58 93 Room Air 09/08 0425 148/74 09/08 0425 148/74 08 0255 57 180/85 09/07 2257 62 161/72 09/07 2136 98.3 62 18 167/72 96 Room Air 09/07 1956 60 150/70 100 Room Air 09/07 1421 98.2 60 20 173/78 95 Room Air Intake & Output 09/08 1600 /08 0800 03/08 0000 Intake Total 450 500 Output Total 400 200 475 Balance -400 250 25 Intake, IV 240 100 Intake, Oral 210 400 Number 0 Bowel Movements Output, Urine 400 200 475 Physical Exam General Appearance: Alert, Oriented X3, Cooperative, No Acute Distress, looked anxious Skin Temp/Moisture Exam: Warm/Dry HEENT: Atraumatic, EOMI, Mucous Membr. moist/pink Cardiovascular: Normal S1, Normal S2, irreg irreg Lungs: Clear to Auscultation, Normal Air Movement Abdomen: scar of surgery transplant kidney Neurological: Normal Speech Extremities: No Edema, Right foot s/p surgery, dressing in place Current Medications: Current Medications Sig/Ira Start time Last Medication Dose Route Stop Time Status Admin Acetaminophen 650 MG Q6P PRN 09/06 1636 AC 09/08 PO 0907 Alprazolam 0.5 MG DAILY NEEDED PRN 09/06 1513 AC 09/06 PO 09/13 1512 2323 Amiodarone HCl 100 MG DAILY 09/06 1000 AC 09/08 PO 0834 Amlodipine Besylate 5 MG ONCE ONE 09/08 0215 DC 09/08 PO 09/08 0216 0255 Amlodipine Besylate 5 MG ONCE ONE 09/07 2200 DC 09/07 PO 09/07 2201 2257 Ampicillin Sodium/ 1,500 MG Q6 09/06 1800 AC 09/08 Sulbactam Sodium IV 0554 Sodium Chloride 100 ML Apixaban 5 MG BID 09/07 1000 AC 09/08 PO 0834 Aspirin 81 MG DAILY 09/06 1000 AC 09/08 PO 0830 Atorvastatin Calcium 10 MG 1700 09/06 1700 AC 09/07 PO 1654 Bupropion HCl 100 MG DAILY 09/06 1000 AC 09/08 PO 0840 Calcitriol 0.25 MCG DAILY 09/08 1000 DC PO Calcitriol 0.25 MCG 2200 09/07 2345 AC 09/08 PO 0840 Calcium Carbonate 500 MG TID 09/08 1600 UNVr PO Calcium Carbonate 500 MG DAILY 09/08 1000 DC 09/08 PO 0836 Cholecalciferol 400 IU DAILY 09/08 1119 UNVr PO Escitalopram Oxalate 10 MG 2200 09/06 2200 AC 09/07 PO 2140 Fludrocortisone 100 MCG DAILY 09/06 1000 AC 09/08 Acetate PO 0835 Hydroxychloroquine 200 MG DAILY 09/06 1000 AC 09/08 Sulfate PO 0835 Insulin Aspart 0 TIDAC 09/06 1700 AC 09/07 SC 1239 Insulin Detemir 13 UNITS BID 09/07 1000 AC 09/08 SC 0907 Metoprolol Succinate 12.5 MG DAILY 09/06 1000 AC 09/08 PO 0847 Mycophenolate Mofetil 1,000 MG BID 09/05 2200 AC 09/08 PO 0831 Oxycodone HCl 5 MG Q6P PRN 09/06 1636 AC PO Oxycodone/ 2 TAB Q6P PRN 09/06 1637 AC 09/07 Acetaminophen PO 2156 Tacrolimus 3.5 MG .[6AM] 09/08 1200 UNVr PO Tacrolimus 3 MG BID 09/07 2200 DC PO Last 24 Hrs of Lab/Joel Results Last 24 Hrs of Labs/Mics: Laboratory Tests 09/08/17 0733: Anion Gap 10, Estimated GFR 60, BUN/Creatinine Ratio 22.5, CBC w Diff NO MAN DIFF REQ, RBC 3.91 L, MCV 85.8, MCH 27.4, MCHC 31.9 L, RDW 13.8, MPV 8.3, Gran % 61.5, Lymphocytes % 18.8 L, Monocytes % 14.5 H, Eosinophils % 4.4, Basophils % 0.8, Absolute Granulocytes 2.1, Absolute Lymphocytes 0.7 L, Absolute Monocytes 0.5, Absolute Eosinophils 0.2, Absolute Basophils 0 Assessment/Plan Assessment: Patient is a 71-year-old male presented for surgery due to right toe osteomyelitis failed antibiotic treatment 1 week ago PMH: stroke 8 years ago with no residual neuro deficit, hypertension, hyperlipidemia, A. 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 Labs showed a WBC count of 3.3, hemoglobin of 10.3 with a normal MCV. BUN 40, creatinine 1.5, CRP 5.7, ESR 48. Foot MRI showed suspicion of osteomyelitis and evidence of innervation injury. Patient was admitted to general medicine floor for management of following conditions: Evidence of osteomyelitis in right hallucis Patient underwent surgery on 09/06/2017: 1 open incision and drainage deep to the deep fascia with exposure of the extensor and flexor tendon and tendon sheath multiple sites right foot 2 hallux amputation right foot 3 intraoperative administration of ankle block anesthesia 4 excisional debridement -continue admit to floor -Follow blood cultures 2 -Follow ID - Continue Unasyn per ID History of renal transplant -Continue patient on hydroxychloroquine 200 mg daily -Continue Mycophenolate 1 g twice a day History of atrial fibrillation -restarted Eliquis -Give patient amiodarone 100 mg daily IDDM -Accuchecks and sliding scale Chronic medical problems -Start patient on 10 mg Lipitor for his hyperlipidemia -Start patient on metoprolol 12.5 daily for his hypertension -Start patient on Lexapro 10 mg and Wellbutrin 100 mg and Xanax 0.5 when necessary for anxiety -Start patient on 81 mg aspirin for heart health - resumed tacrolimus and Mycophenolate DVT prophylaxis with Alps Diabetic diet Full code Problem List: 1. Osteomyelitis of foot, right, acute 2. Kidney replaced by transplant Pain Ratin Pain Location: Rigt foot Pain Goal: Pain 4 or less Pain Plan: Continue current plan Tomorrow's Labs & Rationales: YAO KHOURY
[2017-09-08 08:59] LABS: ABSOLUTE BASOPHIL COUNT 0 /CUMM (0.0-0.2); ABSOLUTE EOSINOPHIL COUNT 0.2 /CUMM (0.0-0.7); ABSOLUTE GRANULOCYTE CT 2.1 /CUMM (1.4-6.5); ABSOLUTE LYMPH COUNT 0.7 /CUMM (1.2-3.4); ABSOLUTE MONOCYTE COUNT 0.5 /CUMM (0.10-0.60); BASOPHIL % 0.8 % (0.0-2.0); EOSINOPHIL % 4.4 % (0-5); GRANULOCYTE % 61.5 % (42.2-75.2); HEMATOCRIT 33.5 % (42-52); MEAN CORPUSCULAR HGB 27.4 PG (27.0-31.0); MEAN CORPUSCULAR HGB CONC 31.9 G/DL (33.0-37.0); MEAN CORPUSCULAR VOLUME 85.8 FL (80.0-94.0); MEAN PLATELET VOLUME 8.3 FL (7.4-10.4); PLATELET COUNT 227 /CUMM (130-400); RBC DISTRIBUTION WIDTH 13.8 % (11.5-14.5); RED BLOOD CELL CT 3.91 /CUMM (4.70-6.10); WHITE BLOOD CELL COUNT 3.5 /CUMM (4.8-10.8)
--- NOTE | 2017-09-08 10:33 | PN- Pulmonary ---
Subjective HPI/Critical Care Issues: Doing ok stable Objective Current Medications: Current Medications Sig/Ira Start time Last Medication Dose Route Stop Time Status Admin Acetaminophen 650 MG Q6P PRN 09/06 1636 AC 09/08 PO 0907 Alprazolam 0.5 MG DAILY NEEDED PRN 09/06 1513 AC 09/06 PO 09/13 1512 2323 Amiodarone HCl 100 MG DAILY 09/06 1000 AC 09/08 PO 0834 Amlodipine Besylate 5 MG ONCE ONE 09/08 0215 DC 09/08 PO 09/08 0216 0255 Amlodipine Besylate 5 MG ONCE ONE 09/07 2200 DC 09/07 PO 09/07 2201 2257 Ampicillin Sodium/ 1,500 MG Q6 09/06 1800 AC 09/08 Sulbactam Sodium IV 0554 Sodium Chloride 100 ML Apixaban 5 MG BID 09/07 1000 AC 09/08 PO 0834 Aspirin 81 MG DAILY 09/06 1000 AC 09/08 PO 0830 Atorvastatin Calcium 10 MG 1700 09/06 1700 AC 09/07 PO 1654 Bupropion HCl 100 MG DAILY 09/06 1000 AC 09/08 PO 0840 Calcitriol 0.25 MCG DAILY 09/08 1000 DC PO Calcitriol 0.25 MCG 2200 09/07 2345 AC 09/08 PO 0840 Calcium Carbonate 500 MG DAILY 09/08 1000 AC 09/08 PO 0836 Escitalopram Oxalate 10 MG 2200 09/06 2200 AC 09/07 PO 2140 Fludrocortisone 100 MCG DAILY 09/06 1000 AC 09/08 Acetate PO 0835 Hydroxychloroquine 200 MG DAILY 09/06 1000 AC 09/08 Sulfate PO 0835 Insulin Aspart 0 TIDAC 09/06 1700 AC 09/07 SC 1239 Insulin Detemir 13 UNITS BID 09/07 1000 AC 09/08 SC 0907 Metoprolol Succinate 12.5 MG DAILY 09/06 1000 AC 09/08 PO 0847 Mycophenolate Mofetil 1,000 MG BID 09/05 2200 AC 09/08 PO 0831 Oxycodone HCl 5 MG Q6P PRN 09/06 1636 AC PO Oxycodone/ 2 TAB Q6P PRN 09/06 1637 AC 09/07 Acetaminophen PO 2156 Patient Medication 1 ED ONE ONE 09/07 1030 DC 09/07 Teaching ED 09/07 1031 1044 Tacrolimus 3 MG BID 09/07 2200 AC PO Vital Signs & I&O Last 24 Hrs of Vitals and I&O: Vital Signs Date Time Temp Pulse Resp B/P B/P Pulse O2 O2 Flow FiO2 Mean Ox Delivery Rate 09/08 0847 51 140/70 09/08 0834 51 140/58 09/08 0626 97.6 51 20 140/58 93 Room Air 09/08 0425 148/74 09/08 0425 148/74 09/08 0255 57 180/85 09/07 2257 62 161/72 09/07 2136 98.3 62 18 167/72 96 Room Air 09/07 1956 60 150/70 100 Room Air 09/07 1421 98.2 60 20 173/78 95 Room Air Intake & Output 09/08 1600 09/08 0800 09/08 0000 Intake Total 450 500 Output Total 400 200 475 Balance -400 250 25 Intake, IV 240 100 Intake, Oral 210 400 Number 0 Bowel Movements Output, Urine 400 200 475 Impression/Plan Impression/Plan Impression/Plan: General Appearance: Alert, Oriented X3, Cooperative, No Acute Distress Skin: Right foot s/p surger, dressing in place. Skin Temp/Moisture Exam: Warm/Dry Sepsis Skin Exam (color): Normal for Ethnicity HEENT: Atraumatic, EOMI, Mucous Membr. moist/pink Cardiovascular: Normal S1, Normal S2, irreg irreg Lungs: Clear to Auscultation, Normal Air Movement Abdomen: Soft, No Tenderness Extremities: as noted above, no sign of fresh bleeding. Pt s/p renal transplant with infected toe with osteo s/p surg on abx DM insulin requiring PVD Pafib on eliquis Depression REC Continue current medications Continue anticoagulation Continue Unasyn ID to eval today to guide us about abx Continue his immunosuppressive therapy Resume his tacrolimus Continue mycophenolate Continue his rate control drugs
[2017-09-08 14:00] VITALS: BP 175/80
[2017-09-08 16:59] VITALS: BP 160/70
[2017-09-08 22:24] VITALS: BP 156/70
[2017-09-09 06:51] VITALS: BP 128/60
--- NOTE | 2017-09-09 08:16 | PN- Housestaff ---
Subjective Follow-up For: Osteomyelitis of right toe status post surgery Subjective: Patient visited today, was lying in bed comfortably in no acute distress, was alert and oriented. Reported impropved sleep overnight. NPO today for closure procedure today. Eliquise AM dose held. Is POD3 after surgery. Pain controlled. IV Unasyn was started after surgery based on ID recommendations. Culture grow MRSA, Ecoli and citrobacter. patient in isolation. Will follow ID for antibiotic adjustment. No fever or chills, no shortness of breathing, no chest pain, no other events. Review of Systems Constitutional: Reports: see HPI. Objective Last 24 Hrs of Vital Signs/I&O Vital Signs Date Time Temp Pulse Resp B/P B/P Pulse O2 O2 Flow FiO2 Mean Ox Delivery Rate 09/09 08 72 130/70 09/09 0820 130/70 09/09 0651 97.9 60 16 128/60 98 09/08 2224 98.9 62 20 156/70 94 Room Air 09/08 1659 160/70 09/08 1400 98.0 60 20 175/80 98 Room Air Intake & Output 09/09 1600 09/09 0800 09/09 0000 Intake Total 310 1030 Output Total 150 1100 Balance 160 -70 Intake, IV 260 130 Intake, Oral 50 900 Number 0 Bowel Movements Output, Urine 150 1100 Patient 217 lb Weight Physical Exam General Appearance: Alert, Oriented X3, Cooperative, No Acute Distress Skin: right foot after surgery, dressing in place Skin Temp/Moisture Exam: Warm/Dry Sepsis Skin Exam (color): Normal for Ethnicity HEENT: Atraumatic, EOMI Neck: No JVD Cardiovascular: Normal S1, Normal S2 Lungs: Clear to Auscultation Abdomen: Soft, No Tenderness Neurological: Normal Speech Extremities: No Edema Current Medications: Current Medications Sig/Ira Start time Last Medication Dose Route Stop Time Status Admin Acetaminophen 650 MG Q6P PRN 09/06 1636 AC 09/09 PO 0833 Alprazolam 0.5 MG DAILY NEEDED PRN 09/06 1513 AC 09/09 PO 09/13 1512 0820 Amiodarone HCl 100 MG DAILY 09/06 1000 AC 09/09 PO 0820 Ampicillin Sodium/ 1,500 MG Q6 09/06 1800 AC 09/09 Sulbactam Sodium IV 0639 Sodium Chloride 100 ML Apixaban 5 MG BID 09/07 1000 AC 09/08 PO 2055 Aspirin 81 MG DAILY 09/06 1000 AC 09/08 PO 0830 Atorvastatin Calcium 10 MG 1700 09/06 1700 AC 09/08 PO 1622 Bupropion HCl 100 MG DAILY 09/06 1000 AC 09/09 PO 0820 Calcitriol 0.25 MCG 2200 09/07 2345 AC 09/08 PO 0840 Calcium Carbonate 500 MG TID 09/08 1600 AC 09/08 PO 1622 Calcium Carbonate 500 MG DAILY 09/08 1000 DC 09/08 PO 0836 Cholecalciferol 400 IU DAILY 09/08 1119 AC 09/09 PO 0820 Dextrose/Sodium 1,000 ML .[id number] 09/09 0800 AC 09/09 Chloride IV 0821 Escitalopram Oxalate 10 MG 2200 09/06 2200 AC 09/07 PO 2140 Fludrocortisone 100 MCG DAILY 09/06 1000 AC 09/09 Acetate PO 0820 Hydroxychloroquine 200 MG DAILY 09/06 1000 AC 09/09 Sulfate PO 0820 Insulin Aspart 0 TIDAC 09/06 1700 DC 09/08 SC 1304 Insulin Detemir 6 UNITS ONCE ONE 09/08 2045 DC 09/08 SC 09/08 2046 2056 Insulin Detemir 13 UNITS BID 09/07 1000 CO 09/08 SC 0907 Insulin Human Regular 0 Q6 09/08 2359 [facility] Metoprolol Succinate 12.5 MG DAILY 09/06 1000 AC 09/09 PO 0820 Mycophenolate Mofetil 1,000 MG BID 09/05 2200 AC 09/09 PO 0819 Oxycodone HCl 5 MG Q6P PRN 09/06 1636 AC 09/08 PO 1856 Oxycodone/ 2 TAB Q6P PRN 09/06 1637 AC 09/07 Acetaminophen PO 2156 Patient Medication 1 ED ONE ONE 09/08 1530 DC 09/08 Teaching ED 09/08 1531 1622 Tacrolimus 3.5 MG 0600 09/08 1100 AC 09/09 PO 0647 Tacrolimus 3 MG BID 09/07 2200 DC PO Last 24 Hrs of Lab/Joel Results Last 24 Hrs of Labs/Mics: Laboratory Tests 09/09/17 0744: Anion Gap 13, Estimated GFR 60, BUN/Creatinine Ratio 25.0, CBC w Diff Pending, WBC Pending, RBC Pending, Hgb Pending, Hct Pending, MCV Pending, MCH Pending, MCHC Pending, RDW Pending, Plt Count Pending, MPV Pending, Gran % Pending, Lymphocytes % Pending, Monocytes % Pending, Eosinophils % Pending, Basophils % Pending, Absolute Granulocytes Pending, Absolute Lymphocytes Pending, Absolute Monocytes Pending, Absolute Eosinophils Pending, Absolute Basophils Pending Assessment/Plan Assessment: Patient is a 71-year-old male presented for surgery due to right toe osteomyelitis failed antibiotic treatment 1 week ago PMH: stroke 8 years ago with no residual neuro deficit, hypertension, hyperlipidemia, A. 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 Labs showed a WBC count of 3.3, hemoglobin of 10.3 with a normal MCV. BUN 40, creatinine 1.5, CRP 5.7, ESR 48. Foot MRI showed suspicion of osteomyelitis and evidence of innervation injury. Patient was admitted to general medicine floor for management of following conditions: Evidence of osteomyelitis in right hallucis Patient underwent surgery on 09/06/2017: 1 open incision and drainage deep to the deep fascia with exposure of the extensor and flexor tendon and tendon sheath multiple sites right foot 2 hallux amputation right foot 3 intraoperative administration of ankle block anesthesia 4 excisional debridement Patient planned to go for closure on 09/09/17. Cutlure grow MRSA, Ecoli and Ctiro -continue admit to GM floor -Follow ID - Consider hold Unasyn - follow ID History of renal transplant -Continue patient on hydroxychloroquine 200 mg daily -Continue Mycophenolate 1 g twice a day History of atrial fibrillation -restarted Eliquis -Give patient amiodarone 100 mg daily IDDM -Accuchecks and sliding scale Chronic medical problems - Start patient on 10 mg Lipitor for his hyperlipidemia - Start patient on metoprolol 12.5 daily for his hypertension - Start patient on Lexapro 10 mg and Wellbutrin 100 mg and Xanax 0.5 when necessary for anxiety - Start patient on 81 mg aspirin for heart health - Resumed tacrolimus and Mycophenolate DVT prophylaxis with Alps Diabetic diet Full code Patient was stable to be discharged pending placement with recommendations to follow with PCP and surgeon. Problem List: 1. Osteomyelitis of foot, right, acute Pain Ratin Pain Location: none Pain Goal: Pain 4 or less Pain Plan: Continue current plan Tomorrow's Labs & Rationales: None Discharge Plan Discharge Disposition: health service Stable for Discharge? Yes
[2017-09-09 09:03] LABS: ABSOLUTE BASOPHIL COUNT 0 /CUMM (0.0-0.2); ABSOLUTE EOSINOPHIL COUNT 0.1 /CUMM (0.0-0.7); ABSOLUTE GRANULOCYTE CT 2.4 /CUMM (1.4-6.5); ABSOLUTE LYMPH COUNT 0.5 /CUMM (1.2-3.4); ABSOLUTE MONOCYTE COUNT 0.4 /CUMM (0.10-0.60); BASOPHIL % 0.4 % (0.0-2.0); EOSINOPHIL % 3.2 % (0-5); GRANULOCYTE % 69.8 % (42.2-75.2); HEMATOCRIT 31.9 % (42-52); MEAN CORPUSCULAR HGB 28.2 PG (27.0-31.0); MEAN CORPUSCULAR HGB CONC 32.9 G/DL (33.0-37.0); MEAN CORPUSCULAR VOLUME 85.7 FL (80.0-94.0); MEAN PLATELET VOLUME 8.6 FL (7.4-10.4); PLATELET COUNT 200 /CUMM (130-400); RBC DISTRIBUTION WIDTH 13.3 % (11.5-14.5); RED BLOOD CELL CT 3.72 /CUMM (4.70-6.10); WHITE BLOOD CELL COUNT 3.5 /CUMM (4.8-10.8)
--- NOTE | 2017-09-09 10:35 | PN- Pulmonary ---
Subjective HPI/Critical Care Issues: Doing well Afebrile Objective Current Medications: Current Medications Sig/Ira Start time Last Medication Dose Route Stop Time Status Admin Acetaminophen 650 MG Q6P PRN 09/06 1636 AC 09/09 PO 0833 Alprazolam 0.5 MG DAILY NEEDED PRN 09/06 1513 AC 09/09 PO 09/13 1512 0820 Amiodarone HCl 100 MG DAILY 09/06 1000 AC 09/09 PO 0820 Ampicillin Sodium/ 1,500 MG Q6 09/06 1800 AC 09/09 Sulbactam Sodium IV 0639 Sodium Chloride 100 ML Apixaban 5 MG BID 09/07 1000 AC 09/08 PO 2055 Aspirin 81 MG DAILY 09/06 1000 AC 09/08 PO 0830 Atorvastatin Calcium 10 MG 1700 09/06 1700 AC 09/08 PO 1622 Bupropion HCl 100 MG DAILY 09/06 1000 AC 09/09 PO 0820 Calcitriol 0.25 MCG 2200 09/07 2345 AC 09/08 PO 0840 Calcium Carbonate 500 MG TID 09/08 1600 AC 09/08 PO 1622 Calcium Carbonate 500 MG DAILY 09/08 1000 DC 09/08 PO 0836 Cholecalciferol 400 IU DAILY 09/08 1119 AC 09/09 PO 0820 Dextrose/Sodium 1,000 ML .[id number] 09/09 0800 AC 09/09 Chloride IV 0821 Escitalopram Oxalate 10 MG 2200 09/06 2200 AC 09/07 PO 2140 Fludrocortisone 100 MCG DAILY 09/06 1000 AC 09/09 Acetate PO 0820 Hydroxychloroquine 200 MG DAILY 09/06 1000 AC 09/09 Sulfate PO 0820 Insulin Aspart 0 TIDAC 09/06 1700 DC 09/08 SD 1304 Insulin Detemir 6 UNITS ONCE ONE 09/08 2045 DC 09/08 SC 09/08 2046 2056 Insulin Detemir 13 UNITS BID 09/07 1000 DC 09/08 SC 0907 Insulin Human Regular 0 Q6 09/08 2359 AC SC Metoprolol Succinate 12.5 MG DAILY 09/06 1000 AC 09/09 PO 0820 Mycophenolate Mofetil 1,000 MG BID 09/05 2200 AC 09/09 PO 0819 Oxycodone HCl 5 MG Q6P PRN 09/06 1636 AC 09/08 PO 1856 Oxycodone/ 2 TAB Q6P PRN 09/06 1637 AC 09/07 Acetaminophen PO 2156 Patient Medication 1 ED ONE ONE 09/08 1530 DC 09/08 Teaching ED 09/08 1531 1622 Tacrolimus 3.5 MG 0600 09/08 1100 AC 09/09 PO 0647 Tacrolimus 3 MG BID 09/07 2200 DC PO Vital Signs & I&O Last 24 Hrs of Vitals and I&O: Vital Signs Date Time Temp Pulse Resp B/P B/P Pulse O2 O2 Flow FiO2 Mean Ox Delivery Rate 09/10 819 72 130/70 09/09 0820 130/70 09/09 0651 97.9 60 16 128/60 98 09/08 2224 98.9 62 20 156/70 94 Room Air 09/08 1659 160/70 09/08 1400 98.0 60 20 175/80 98 Room Air Intake & Output 09/09 1600 09/09 0800 09/09 0000 Intake Total 310 1030 Output Total 150 1100 Balance 160 -70 Intake, IV 260 130 Intake, Oral 50 900 Number 0 Bowel Movements Output, Urine 150 1100 Patient 217 lb Weight Impression/Plan Impression/Plan Impression/Plan: General Appearance: Alert, Oriented X3, Cooperative, No Acute Distress Skin: Right foot s/p surger, dressing in place. Skin Temp/Moisture Exam: Warm/Dry Sepsis Skin Exam (color): Normal for Ethnicity HEENT: Atraumatic, EOMI, Mucous Membr. moist/pink Cardiovascular: Normal S1, Normal S2, irreg irreg Lungs: Clear to Auscultation, Normal Air Movement Abdomen: Soft, No Tenderness Extremities: as noted above, no sign of fresh bleeding. CUltures noted Pt s/p renal transplant with infected toe with osteo s/p surg on abx, now with ecoli and staph, going to OR for possible closure DM insulin requiring PVD Pafib on eliquis Depression REC Continue current medications Continue anticoagulation Abx per ID Continue his immunosuppressive therapy Continue his rate control drugs
--- NOTE | 2017-09-09 11:42 | PN- Infect Dx ---
Subjective Subjective: Afebrile without complaints. Objective Last 24 Hrs of Vital Signs/I&O Vital Signs Date Time Temp Pulse Resp B/P B/P Pulse O2 O2 Flow FiO2 Mean Ox Delivery Rate 09/10 819 72 130/70 09/09 0820 130/70 09/09 0651 97.9 60 16 128/60 98 09/08 2224 98.9 62 20 156/70 94 Room Air 09/08 1659 160/70 09/08 1400 98.0 60 20 175/80 98 Room Air Intake & Output 09/09 1600 09/09 0800 09/09 0000 Intake Total 310 1030 Output Total 150 1100 Balance 160 -70 Intake, IV 260 130 Intake, Oral 50 900 Number 0 Bowel Movements Output, Urine 150 1100 Patient 217 lb Weight Physical Exam Other Physical Findings: He appears comfortable in no acute distress Extremities right great toe incision clean, with minimal erythema and no drainage; packing in place Results Last 24 Hours of Lab Results: Laboratory Tests 09/10 743 Chemistry Sodium (137 - 145 mmol/L) 141 Potassium (3.5 - 5.1 mmol/L) 4.4 Chloride (98 - 107 mmol/L) 101 Carbon Dioxide (22 - 30 mmol/L) 28 Anion Gap (5 - 16) 13 BUN (9 - 20 mg/dL) 30 H Creatinine (0.7 - 1.2 mg/dL) 1.2 Estimated GFR (>60 ml/min) 60 BUN/Creatinine Ratio (7 - 25 %) 25.0 Hematology CBC w Diff MAN DIFF ORDERED WBC (4.8 - 10.8 /CUMM) 3.5 L RBC (4.70 - 6.10 /CUMM) 3.72 L Hgb (14.0 - 18.0 G/DL) 10.5 L Hct (42 - 52 %) 31.9 L MCV (80.0 - 94.0 FL) 85.7 MCH (27.0 - 31.0 PG) 28.2 MCHC (33.0 - 37.0 G/DL) 32.9 L RDW (11.5 - 14.5 %) 13.3 Plt Count (130 - 400 /CUMM) 200 MPV (7.4 - 10.4 FL) 8.6 Gran % (42.2 - 75.2 %) 69.8 Lymphocytes % (20.5 - 51.1 %) 15.5 L Monocytes % (1.7 - 9.3 %) 11.1 H Eosinophils % (0 - 5 %) 3.2 Basophils % (0.0 - 2.0 %) 0.4 Absolute Granulocytes (1.4 - 6.5 /CUMM) 2.4 Segmented Neutrophils (42.2 - 75.2 %) 52 Band Neutrophils (0.0 - 5.0 %) 12 H Absolute Lymphocytes (1.2 - 3.4 /CUMM) 0.5 L Lymphocytes (20.5 - 51.1 %) 20 L Monocytes (1.7 - 9.3 %) 14 H Absolute Monocytes (0.10 - 0.60 /CUMM) 0.4 Eosinophils (0 - 5.0 %) 2 Absolute Eosinophils (0.0 - 0.7 /CUMM) 0.1 Absolute Basophils (0.0 - 0.2 /CUMM) 0 Platelet Estimate (ADEQUATE) ADEQUATE Anisocytosis 1+ Last 24 Hours of Joel Results: OR culture September 06 labeled right foot bone positive for MRSA, Escherichia coli resistant to Ampicillin, Augmentin and Unasyn and Citrobacter resistant to Ampicillin, Cefazolin, Augmentin, Unasyn and Cefoxitin Blood cultures 2 September 05 negative Assessment/Plan ID Impression: Stable, with temperatures and white blood cell count remaining normal, now 3 days status post partial amputation of the right great toe for osteomyelitis, with his OR cultures growing MRSA and 2 gram-negative rods, all resistant to Unasyn, and with his pathology revealing underlying bone with focal features compatible with acute osteomyelitis, which did not extend to the proximal bone margin, and with skin and underlying soft tissue with necrosis and marked acute inflammation, which did not extend to the proximal margin. Given the appearance of the toe and the pathology findings, the role of antibiotics is unclear, but a short course of oral antibiotics could be considered for any residual soft tissue infection. Suggestion: 1. Await return to the OR today for wound closure 2. Discontinue Unasyn 3. Begin Bactrim DS 1 po every 12 hours if okay with Renal to plan on a 5 day course
[2017-09-09 13:15] VITALS: BP 102/62
--- NOTE | 2017-09-09 14:39 | Operative Report ---
Operative/Inv Procedure Report Surgery Date: 09/09/17 Name of Procedure: 1 open incision and drainage deep to the deep fascia with exposure of the extensor and flexor tendon and tendon sheath multiple sites right foot 2 delayed primary closure of open surgical wound with local random advancement flap 3 revisional first ray resection right 4 intraoperative administration of ankle block anesthesia 5 excisional debridement Pre-Operative Diagnosis: 1 open necrotic wound right foot 2 osteomyelitis right foot 3 diabetic peripheral neuropathy Post-Operative Diagnosis: The same Estimated Blood Loss: less than 50ml Surgeon/Telemetry Nurse: PRASHANT MORGAN DPM Anesthesia: moderate sedation, block Operative/Procedure Note Note: After obtaining informed consent the patient was brought to the operating room and placed on the operating table in the supine position. The patient isn't securely fastened to the operating table utilizing safety belt. After administration of IV sedation, since cc of 0.5% Marcaine plain was infiltrated about the patient's right ankle. Right foot and ankle within scrubbed prepped and draped in usual aseptic manner. Digitorectal right foot, where a large full -thickness necrotic was identified. A 15 blade visualized sharply revised skin margins. Dissection was then carried down deep to the fashion with exposure of the extensor and flexor tendon and tendon sheath multiple sites, proximally and distally. All necrotic nonviable infected tissue sharply evacuated wound bed. Dissection and continued problem proximally to the interphalangeal joint with an phalanx was disarticulated and passed from the operative field was sent as specimen for pathologic inspection. Nipple was then irrigated with 3 L normal sterile saline to fissure 50,000 units of bacitracin. Following this foot was redraped and surgeon's top was changed clean gloves. Any bleeding vessels identified were cauterized lace encountered. A dorsal plantar flap was then developed with undermining, mobilization and advancement recent tissues. The degenerative flap was held centrally with 3-0 Vicryl. Skin is reapproximated 3- 0 nylon. Incision dressed with Xeroform 4 x 4's Kerlix and Qasim wrap. The patient noted tolerate both procedure and anesthesia well and the patient was transported from the operating room to recovery by sent stable best assess intact to both the dorsal plantar flaps.
[2017-09-09 16:04] VITALS: BP 109/63
--- NOTE | 2017-09-09 17:11 | Cons- Vascular Surgery ---
General Information and HPI Consulting Request Date of Consult: 09/09/17 Requested By: Lakeisha RANKIN,Gilbert Mark History of Present Illness: 71-year-old man with insulin-dependent diabetes, end-stage renal disease status post renal transplantation maintained on suppressive agents, CVA 8 years ago, A. fib on Eliquis, for nonhealing right great toe wound. He has been taken to the operating room twice by Dr. Dye underwent I&D and resection. Intraoperative cultures is grown MRSA. He is on antibiotics. Infectious disease is following. Vascular surgery was consulted regarding adequacy of blood perfusion to the right foot. Patient is not an active smoker. He denies claudication. Allergies/Medications Allergies: Coded Allergies: NO KNOWN ALLERGIES (NONE 09/09/17) Home Med List: Alprazolam 0.5 MG TAB 1 TAB PO PRN ANXIETY (Reported) Amiodarone (Cordarone) 200 MG TAB 0.5 TAB PO DAILY A.fib (Reported) Amiodarone (Cordarone) 200 MG TAB 1 TAB PO DAILY HEART (Reported) Apixaban (Eliquis) 5 MG TAB 1 TAB PO BID BLOOD THINNER (Reported) Aspirin (Aspirin*) 81 MG TAB.CHEW 1 TAB PO DAILY HEALTH HEALTH (Reported) Atorvastatin Calcium 10 MG TABLET 1 TAB PO DAILY cholesterol (Reported) Bupropion HCl 100 MG TABLET 1 TAB PO DAILY pain (Reported) Calcitriol 0.25 MCG CAPSULE 1 CAP PO DAILY SUPPLEMENT (Reported) Cephalexin (Keflex) 500 MG CAP 1 TAB PO TID TOE INJURY CINACALCET HCL (Sensipar) 30 MG TAB 1 TAB PO DAILY UNKNOWN (Reported) Cu/Se/Vit A/Vit C/Vit E/Zinc (Ocuvite) 1 TAB TAB 1 TAB PO DAILY VITAMIN ( Reported) Escitalopram Oxalate (Lexapro) 10 MG TABLET 1 TAB PO DAILY anxeity (Reported) Fludrocortisone Acetate 0.1 MG TABLET 1 TAB PO DAILY SUPPLEMENT (Reported) Fludrocortisone Acetate (Florinef Acetate) 0.1 MG TAB 2 TAB PO DAILY UNKNOWN (Reported) Hydroxychloroquine Sulfate 200 MG TABLET 1 TAB PO DAILY UNKNOWN (Reported) Insulin Glargine, Recombinan (Lantus) (Unknown Strength) TIMMY (Unknown Dose) DIABETES (Reported) Insulin Lispro, Recombinant (Humalog) (Unknown Strength) RK (Unknown Dose) DIABETES (Reported) Metoprolol Succ XL (Toprol XL) 25 MG TAB 0.5 TAB PO DAILY HEART HEALTH ( Reported) Metoprolol Tartrate (Lopressor) 25 MG TAB 1 TAB PO AT BEDTIME HEART (Reported ) MIDODRINE HCL (Midodrine HCl) 10 MG TAB 1 TAB PO BID UNKNOWN (Reported) Mycophenolate Mofetil (CellCept) 250 MG CAP 4 TAB PO BID IMMUNOSUPPRESSANT ( Reported) SERTRALINE HCL (Sertraline Hydrochloride) 50 MG TAB 1 TAB PO DAILY UNKNOWN ( Reported) Sodium Bicarbonate 648 MG TAB 1 TAB PO BID UNKNOWN (Reported) Tacrolimus (Envarsus XR) 0.75 MG TAB.ER.24H 2 TAB PO DAILY TRANSPLANT ( Reported) Tacrolimus (Envarsus XR) 1 MG TAB.ER.24H 2 TAB PO DAILY TRANSPLANT (Reported) Tacrolimus (Prograf) 1 MG CAP 3 CAP PO BID UNKNOWN (Reported) Tamsulosin Hydrochloride (Flomax) 0.4 MG CAP 1 CAP PO AT BEDTIME UNKNOWN ( Reported) Past History Medical History Neurological: STROKE EENT: NONE Cardiovascular: hypertension, hyperlipidemia, AFIB (ON COUMADIN) Respiratory: NONE Gastrointestinal: NONE Hepatic: NONE Renal: renal transplant Musculoskeletal: fracture, R ARM FRACTURE Psychiatric: NONE Endocrine: IDDM Blood Disorders: NONE 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 Surgical History Pertinent Surgical History: RENAL TRANSPLANT right and left toe amputations secondary to IDDM Psychosocial History Smoking Status: Former Smoker Review of Systems Review of Systems: Patient denies headache, dizziness, cough, palpitation, diarrhea or constipation Exam & Diagnostic Data Vital Signs and I&O Vital Signs Date Time Temp Pulse Resp B/P B/P Pulse O2 O2 Flow FiO2 Mean Ox Delivery Rate 09/09 1604 97.6 55 20 109/63 97 Room Air 09/09 1315 98.2 59 18 102/62 94 Room Air 09/09 0820 72 130/70 09/09 0820 130/70 09/09 0651 97.9 60 16 128/60 98 09/08 2224 98.9 62 20 156/70 94 Room Air Intake & Output 09/09 1600 09/09 0800 09/09 0000 09/08 1600 09/08 0800 09/08 0000 Intake Total 456 853 1578 600 450 500 Output Total 716 347 3904 1200 200 475 Balance -25 160 -70 -600 250 25 Intake, IV 425 260 130 100 240 100 Intake, Oral 50 900 500 210 400 Number 0 0 Bowel Movements Output, Urine 267 276 2555 1200 200 475 Patient 217 lb 217 lb Weight Physical Exam: Alert and oriented 3 Lungs: Clear to auscultation bilaterally Cardiovascular: Irregular Abdomen: Soft, nontender nondistended Extremities: Palpable femoral pulses bilaterally. I am unable to palpate left pedal pulses. The right foot is postop dressings. I did not remove the dressings. Assessment/Plan Assessment/Plan 71-year-old man with multiple medical issues and peripheral arterial disease risk factors for diabetes and renal failure presented with nonhealing right great toe which has shown to grow MRSA. He underwent I&D and closure of the wound today by Dr. Dye. He is being maintained on antibiotics per ID. According to Dr. Dye, subjectively, there was adequate bleeding near the resection site. For now, I'm not planning any vascular interventions. Apparently, the patient will be discharged in the next day or so. I will follow him as outpatient. Thank you for asking me to be involved in the care of this patient. Consult Acknowledgment - Thank you for your consult request. Attending MD Review Statement Attending Statement Attending MD Statement: examined this patient, discuss w/resident/PA/LIBRARY ASSISTANT
[2017-09-09 23:15] VITALS: BP 120/68
--- NOTE | 2017-09-10 05:38 | PN- Housestaff ---
Subjective Follow-up For: Osteomyelitis of right toe status post surgery Subjective: Patient visited today, was lying in bed comfortably in no acute distress, was alert and oriented. Underwent delayed primary closure of foot ulcer yesterday. No fever or chills, no shortness of breathing, no chest pain, no other events. Considering growing MRSA patient was changed to PO bactrim after confirming with renal. Patient requested to stay for one more day. Review of Systems Constitutional: Reports: see HPI. Objective Last 24 Hrs of Vital Signs/I&O Vital Signs Date Time Temp Pulse Resp B/P B/P Pulse O2 O2 Flow FiO2 Mean Ox Delivery Rate 09/09 2315 97.9 64 18 120/68 94 Room Air 09/09 1604 97.6 55 20 109/63 97 Room Air 09/09 1315 98.2 59 18 102/62 94 Room Air 09/09 0820 72 130/70 09/09 0820 130/70 09/09 0651 97.9 60 16 128/60 98 Intake & Output 09/10 0800 09/10 0000 09/09 1600 Intake Total 100 425 Output Total 450 Balance 100 -25 Intake, IV 425 Intake, Oral 100 Output, Urine 450 Patient 217 lb Weight Physical Exam General Appearance: Alert, Oriented X3, Cooperative, No Acute Distress Skin: Ri Foot s/p surgery Skin Temp/Moisture Exam: Warm/Dry Sepsis Skin Exam (color): Normal for Ethnicity HEENT: Atraumatic, Mucous Membr. moist/pink Neck: No JVD Cardiovascular: Normal S1, Normal S2 Lungs: Clear to Auscultation, Normal Air Movement Abdomen: Soft, No Tenderness Neurological: Normal Speech, grossly no change compared to yesterday Extremities: No Edema Current Medications: Current Medications Sig/Ira Start time Last Medication Dose Route Stop Time Status Admin Acetaminophen 650 MG Q6P PRN 09/06 1636 AC 09/09 PO 0833 Alprazolam 0.5 MG DAILY NEEDED PRN 09/06 1513 AC 09/09 PO 09/13 1512 0820 Amiodarone HCl 100 MG DAILY 09/06 1000 AC 09/09 PO 0820 Ampicillin Sodium/ 1,500 MG Q6 09/06 1800 DC 09/09 Sulbactam Sodium IV 1156 Sodium Chloride 100 ML Apixaban 5 MG BID 09/07 1000 AC 09/09 PO 210 Aspirin 81 MG DAILY 09/06 1000 AC 09/08 PO 0830 Atorvastatin Calcium 10 MG 1700 09/06 1700 AC 09/09 PO 1623 Bupropion HCl 100 MG DAILY 09/06 1000 AC 09/09 PO 0820 Calcitriol 0.25 MCG 2200 09/07 2345 AC 09/09 PO 2109 Calcium Carbonate 500 MG TID 09/08 1600 AC 09/09 PO 2109 Cholecalciferol 400 IU DAILY 09/08 1119 AC 09/09 PO 0820 Dextrose/Sodium 1,000 ML .[id number] 09/09 0800 DC 09/09 Chloride IV 0821 Escitalopram Oxalate 10 MG 2200 09/06 2200 AC 09/09 PO 2109 Fludrocortisone 100 MCG DAILY 09/06 1000 AC 09/09 Acetate PO 0820 Hydroxychloroquine 200 MG DAILY 09/06 1000 AC 09/09 Sulfate PO 0820 Insulin Aspart 0 TIDAC 09/09 1700 AC SC Insulin Detemir 13 UNITS BID 09/09 2200 AC 09/09 SC 2110 Insulin Human Regular 4 UNITS .STK-MED ONE 09/09 1137 DC IV 09/09 1138 Insulin Human Regular 0 Q6 09/08 2359 DC 09/09 SC 1151 Metoprolol Succinate 12.5 MG DAILY 09/06 1000 AC 09/09 PO 0820 Morphine Sulfate 4 MG .STK-MED ONE 09/09 1517 DC IM 09/09 1518 Morphine Sulfate 4 MG .STK-MED ONE 09/09 1446 DC IM 09/09 1447 Mycophenolate Mofetil 1,000 MG BID 09/05 2200 AC 09/09 PO 2109 Oxycodone HCl 5 MG Q6P PRN 09/06 1636 AC 09/08 PO 1856 Oxycodone/ 2 TAB Q6P PRN 09/06 1637 AC 09/07 Acetaminophen PO 2156 Tacrolimus 3.5 MG 0600 09/08 1100 AC 09/10 PO 0536 Trimethoprim/ 1 TAB Q12H 09/09 1800 AC 09/10 Sulfamethoxazole PO 09/14 0601 0536 Trimethoprim/ 1 TAB BID 09/09 1528 DC Sulfamethoxazole PO 09/13 2201 Last 24 Hrs of Lab/Joel Results Last 24 Hrs of Labs/Mics: Laboratory Tests 09/09/17 0744: Anion Gap 13, Estimated GFR 60, BUN/Creatinine Ratio 25.0, CBC w Diff MAN DIFF ORDERED, RBC 3.72 L, MCV 85.7, MCH 28.2, MCHC 32.9 L, RDW 13.3, MPV 8.6, Gran % 69.8, Lymphocytes % 15.5 L, Monocytes % 11.1 H, Eosinophils % 3.2, Basophils % 0.4, Absolute Granulocytes 2.4, Segmented Neutrophils 52, Band Neutrophils 12 H, Absolute Lymphocytes 0.5 L, Lymphocytes 20 L, Monocytes 14 H, Absolute Monocytes 0.4, Eosinophils 2, Absolute Eosinophils 0.1, Absolute Basophils 0, Platelet Estimate ADEQUATE, Anisocytosis 1+ Assessment/Plan Assessment: Patient is a 71-year-old male presented for surgery due to right toe osteomyelitis failed antibiotic treatment 1 week ago PMH: stroke 8 years ago with no residual neuro deficit, hypertension, hyperlipidemia, A. 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 Labs showed a WBC count of 3.3, hemoglobin of 10.3 with a normal MCV. BUN 40, creatinine 1.5, CRP 5.7, ESR 48. Foot MRI showed suspicion of osteomyelitis and evidence of innervation injury. Patient was admitted to general medicine floor for management of following conditions: Evidence of osteomyelitis in right hallucis Patient underwent surgery on 09/06/2017: 1 open incision and drainage deep to the deep fascia with exposure of the extensor and flexor tendon and tendon sheath multiple sites right foot 2 hallux amputation right foot 3 intraoperative administration of ankle block anesthesia 4 excisional debridement Cutlure grow MRSA, Ecoli and Ctiro. started on Bactrim. Patient underwent delayed closure/I and D on 09/09. -continue admit to GM floor - Follow ID - continue bactrim PO per ID - follow ID History of renal transplant -Continue patient on hydroxychloroquine 200 mg daily -Continue Mycophenolate 1 g twice a day History of atrial fibrillation -restarted Eliquis -Give patient amiodarone 100 mg daily IDDM -Accuchecks and sliding scale Chronic medical problems - Start patient on 10 mg Lipitor for his hyperlipidemia - Start patient on metoprolol 12.5 daily for his hypertension - Start patient on Lexapro 10 mg and Wellbutrin 100 mg and Xanax 0.5 when necessary for anxiety - Start patient on 81 mg aspirin for heart health - Resumed tacrolimus and Mycophenolate DVT prophylaxis with Alps Diabetic diet Full code Problem List: 1. Osteomyelitis of foot, right, acute Pain Ratin Pain Location: None Pain Goal: Pain 4 or less Pain Plan: Continue current plan Tomorrow's Labs & Rationales: YAO BEP
[2017-09-10 06:47] VITALS: BP 150/63
[2017-09-10 08:43] LABS: ABSOLUTE BASOPHIL COUNT 0 /CUMM (0.0-0.2); ABSOLUTE EOSINOPHIL COUNT 0.1 /CUMM (0.0-0.7); ABSOLUTE GRANULOCYTE CT 1.5 /CUMM (1.4-6.5); ABSOLUTE LYMPH COUNT 0.5 /CUMM (1.2-3.4); ABSOLUTE MONOCYTE COUNT 0.4 /CUMM (0.10-0.60); BASOPHIL % 0.4 % (0.0-2.0); EOSINOPHIL % 3.8 % (0-5); GRANULOCYTE % 60.7 % (42.2-75.2); HEMATOCRIT 31.3 % (42-52); MEAN CORPUSCULAR HGB 28.3 PG (27.0-31.0); MEAN CORPUSCULAR HGB CONC 33.2 G/DL (33.0-37.0); MEAN CORPUSCULAR VOLUME 85.3 FL (80.0-94.0); MEAN PLATELET VOLUME 8.3 FL (7.4-10.4); PLATELET COUNT 207 /CUMM (130-400); RBC DISTRIBUTION WIDTH 13.9 % (11.5-14.5); RED BLOOD CELL CT 3.67 /CUMM (4.70-6.10); WHITE BLOOD CELL COUNT 2.6 /CUMM (4.8-10.8)
--- NOTE | 2017-09-10 11:58 | PN- Pulmonary ---
Subjective HPI/Critical Care Issues: Doing ok Mild pain S/p closure Objective Current Medications: Current Medications Sig/Ira Start time Last Medication Dose Route Stop Time Status Admin Acetaminophen 650 MG Q6P PRN 09/06 1636 AC 09/09 PO 0833 Alprazolam 0.5 MG DAILY NEEDED PRN 09/06 1513 AC 09/10 PO 09/13 1512 1105 Amiodarone HCl 100 MG DAILY 09/06 1000 AC 09/10 PO 0953 Ampicillin Sodium/ 1,500 MG Q6 09/06 1800 DC 09/09 Sulbactam Sodium IV 1156 Sodium Chloride 100 ML Apixaban 5 MG BID 09/07 1000 AC 09/10 PO 0952 Aspirin 81 MG DAILY 09/06 1000 AC 09/10 PO 0952 Atorvastatin Calcium 10 MG 1700 09/06 1700 AC 09/09 PO 1623 Bupropion HCl 100 MG DAILY 09/06 1000 AC 09/10 PO 0952 Calcitriol 0.25 MCG 2200 09/07 2345 AC 09/09 PO 2109 Calcium Carbonate 500 MG TID 09/08 1600 AC 09/10 PO 0952 Cholecalciferol 400 IU DAILY 09/08 1119 AC 09/10 PO 0952 Dextrose/Sodium 1,000 ML .[id number] 09/09 0800 DC 09/09 Chloride IV 0821 Escitalopram Oxalate 10 MG 2200 09/06 2200 AC 09/09 PO 2109 Fludrocortisone 100 MCG DAILY 09/06 1000 AC 09/10 Acetate PO 0954 Hydroxychloroquine 200 MG DAILY 09/06 1000 AC 09/10 Sulfate PO 0953 Insulin Aspart 0 TIDAC 09/09 1700 AC 09/10 SC 0952 Insulin Detemir 13 UNITS BID 09/09 2200 AC 09/10 SC 0952 Insulin Human Regular 0 Q6 09/08 2359 DC 09/09 SC 1151 Metoprolol Succinate 12.5 MG DAILY 09/06 1000 AC 09/10 PO 0953 Morphine Sulfate 4 MG .STK-MED ONE 09/09 1517 DC IM 09/09 1518 Morphine Sulfate 4 MG .STK-MED ONE 09/09 1446 DC IM 09/09 1447 Mycophenolate Mofetil 1,000 MG BID 09/05 2200 AC 09/10 PO 0952 Oxycodone HCl 5 MG Q6P PRN 09/06 1636 AC 09/08 PO 1856 Oxycodone/ 2 TAB Q6P PRN 09/06 1637 AC 09/07 Acetaminophen PO 2156 Tacrolimus 3.5 MG 0600 09/08 1100 AC 09/10 PO 0536 Trimethoprim/ 1 TAB Q12H 09/09 1800 AC 09/10 Sulfamethoxazole PO 09/14 0601 0536 Trimethoprim/ 1 TAB BID 09/09 1528 DC Sulfamethoxazole PO 09/13 2201 Vital Signs & I&O Last 24 Hrs of Vitals and I&O: Vital Signs Date Time Temp Pulse Resp B/P B/P Pulse O2 O2 Flow FiO2 Mean Ox Delivery Rate 09/10 0953 58 150/63 09/10 0953 62 150/63 09/10 0647 97.8 58 18 150/63 98 Room Air 09/09 2315 97.9 64 18 120/68 94 Room Air 09/09 1604 97.6 55 20 109/63 97 Room Air 09/09 1315 98.2 59 18 102/62 94 Room Air Intake & Output 09/10 1600 09/10 0800 09/10 0000 Intake Total 100 100 Output Total 500 Balance -400 100 Intake, Oral 100 100 Output, Urine 500 Patient 211 lb Weight Weight Bed scale Measurement Method Laboratory Tests 09/10 09/09 0720 0744 Chemistry Sodium (137 - 145 mmol/L) 143 141 Potassium (3.5 - 5.1 mmol/L) 4.5 4.4 Chloride (98 - 107 mmol/L) 102 101 Carbon Dioxide (22 - 30 mmol/L) 30 28 Anion Gap (5 - 16) 11 13 BUN (9 - 20 mg/dL) 31 H 30 H Creatinine (0.7 - 1.2 mg/dL) 1.3 H 1.2 Estimated GFR (>60 ml/min) 55 L 60 BUN/Creatinine Ratio (7 - 25 %) 23.8 25.0 Hematology CBC w Diff NO MAN DIFF REQ MAN DIFF ORDERED WBC (4.8 - 10.8 /CUMM) 2.6 L 3.5 L RBC (4.70 - 6.10 /CUMM) 3.67 L 3.72 L Hgb (14.0 - 18.0 G/DL) 10.4 L 10.5 L Hct (42 - 52 %) 31.3 L 31.9 L MCV (80.0 - 94.0 FL) 85.3 85.7 MCH (27.0 - 31.0 PG) 28.3 28.2 MCHC (33.0 - 37.0 G/DL) 33.2 32.9 L RDW (11.5 - 14.5 %) 13.9 13.3 Plt Count (130 - 400 /CUMM) 207 200 MPV (7.4 - 10.4 FL) 8.3 8.6 Gran % (42.2 - 75.2 %) 60.7 69.8 Lymphocytes % (20.5 - 51.1 %) 21.0 15.5 L Monocytes % (1.7 - 9.3 %) 14.1 H 11.1 H Eosinophils % (0 - 5 %) 3.8 3.2 Basophils % (0.0 - 2.0 %) 0.4 0.4 Absolute Granulocytes (1.4 - 6.5 /CUMM) 1.5 2.4 Segmented Neutrophils (42.2 - 75.2 %) 52 Band Neutrophils (0.0 - 5.0 %) 12 H Absolute Lymphocytes (1.2 - 3.4 /CUMM) 0.5 L 0.5 L Lymphocytes (20.5 - 51.1 %) 20 L Monocytes (1.7 - 9.3 %) 14 H Absolute Monocytes (0.10 - 0.60 /CUMM) 0.4 0.4 Eosinophils (0 - 5.0 %) 2 Absolute Eosinophils (0.0 - 0.7 /CUMM) 0.1 0.1 Absolute Basophils (0.0 - 0.2 /CUMM) 0 0 Platelet Estimate (ADEQUATE) ADEQUATE Anisocytosis 1+ Impression/Plan Impression/Plan Impression/Plan: General Appearance: Alert, Oriented X3, Cooperative, No Acute Distress Skin: Right foot s/p surgery, dressing in place. Skin Temp/Moisture Exam: Warm/Dry Sepsis Skin Exam (color): Normal for Ethnicity HEENT: Atraumatic, EOMI, Mucous Membr. moist/pink Cardiovascular: Normal S1, Normal S2, irreg irreg Lungs: Clear to Auscultation, Normal Air Movement Abdomen: Soft, No Tenderness Extremities: as noted above, no sign of fresh bleeding. CUltures noted Pt s/p renal transplant with infected toe with osteo s/p surg on abx, now with ecoli and staph, s/p amputation and sub closure done on 09/09 CKD s/p renal transplant On immunosupp rx, with mild leukopenia DM insulin requiring PVD Pafib on eliquis Depression REC Continue current medications Check blood work again in am - creat and potassium as he is on bactrim Continue anticoagulation Abx per ID on bactrim for a total of 5 days Continue his immunosuppressive therapy Continue his rate control drugs Dc in am if stable Out pt vascular eval
[2017-09-10 14:20] VITALS: BP 148/56
[2017-09-10 22:22] VITALS: BP 120/60
[2017-09-11 06:45] VITALS: BP 136/80
[2017-09-11 08:45] LABS: ABSOLUTE BASOPHIL COUNT 0 /CUMM (0.0-0.2); ABSOLUTE EOSINOPHIL COUNT 0.1 /CUMM (0.0-0.7); ABSOLUTE GRANULOCYTE CT 1.9 /CUMM (1.4-6.5); ABSOLUTE LYMPH COUNT 0.6 /CUMM (1.2-3.4); ABSOLUTE MONOCYTE COUNT 0.5 /CUMM (0.10-0.60); BASOPHIL % 0.8 % (0.0-2.0); EOSINOPHIL % 3.4 % (0-5); GRANULOCYTE % 60.8 % (42.2-75.2); HEMATOCRIT 30.3 % (42-52); MEAN CORPUSCULAR HGB 28.2 PG (27.0-31.0); MEAN CORPUSCULAR VOLUME 85.3 FL (80.0-94.0); MEAN PLATELET VOLUME 8.3 FL (7.4-10.4); PLATELET COUNT 208 /CUMM (130-400); RBC DISTRIBUTION WIDTH 13.5 % (11.5-14.5); RED BLOOD CELL CT 3.56 /CUMM (4.70-6.10); WHITE BLOOD CELL COUNT 3.2 /CUMM (4.8-10.8)
--- NOTE | 2017-09-11 10:44 | PN- Infect Dx ---
Subjective Subjective: He notes mild throbbing pain in the right foot. Objective Last 24 Hrs of Vital Signs/I&O Vital Signs Date Time Temp Pulse Resp B/P B/P Pulse O2 O2 Flow FiO2 Mean Ox Delivery Rate 09/11 0950 128/74 09/11 0949 84 128/74 09/11 0645 98.6 60 18 136/80 94 Room Air 09/10 2222 98.1 62 20 120/60 92 09/10 1420 97.9 61 20 148/56 92 Intake & Output 09/11 1600 09/11 0800 09/11 0000 Intake Total 100 600 Output Total Balance 100 600 Intake, Oral 100 600 Patient 208 lb Weight Weight Bed scale Measurement Method Physical Exam Other Physical Findings: He appears comfortable in no acute distress Extremities right foot dressing intact Results Last 24 Hours of Lab Results: Laboratory Tests 09/11 0715 Chemistry Sodium (137 - 145 mmol/L) 139 Potassium (3.5 - 5.1 mmol/L) 4.6 Chloride (98 - 107 mmol/L) 102 Carbon Dioxide (22 - 30 mmol/L) 28 Anion Gap (5 - 16) 9 BUN (9 - 20 mg/dL) 34 H Creatinine (0.7 - 1.2 mg/dL) 1.5 H Estimated GFR (>60 ml/min) 46 L BUN/Creatinine Ratio (7 - 25 %) 22.7 Hematology CBC w Diff NO MAN DIFF REQ WBC (4.8 - 10.8 /CUMM) 3.2 L RBC (4.70 - 6.10 /CUMM) 3.56 L Hgb (14.0 - 18.0 G/DL) 10.0 L Hct (42 - 52 %) 30.3 L MCV (80.0 - 94.0 FL) 85.3 MCH (27.0 - 31.0 PG) 28.2 MCHC (33.0 - 37.0 G/DL) 33.0 RDW (11.5 - 14.5 %) 13.5 Plt Count (130 - 400 /CUMM) 208 MPV (7.4 - 10.4 FL) 8.3 Gran % (42.2 - 75.2 %) 60.8 Lymphocytes % (20.5 - 51.1 %) 20.0 L Monocytes % (1.7 - 9.3 %) 15.0 H Eosinophils % (0 - 5 %) 3.4 Basophils % (0.0 - 2.0 %) 0.8 Absolute Granulocytes (1.4 - 6.5 /CUMM) 1.9 Absolute Lymphocytes (1.2 - 3.4 /CUMM) 0.6 L Absolute Monocytes (0.10 - 0.60 /CUMM) 0.5 Absolute Eosinophils (0.0 - 0.7 /CUMM) 0.1 Absolute Basophils (0.0 - 0.2 /CUMM) 0 Last 24 Hours of Joel Results: No new cultures Assessment/Plan ID Impression: Stable, with temperatures and white blood cell count remaining normal, status post delayed primary closure of the right foot wound 2 days ago, now 5 days status post partial amputation of the right great toe for osteomyelitis. The pathology from his initial surgery revealed clean margins for both the bone and soft tissue; therefore the role of antibiotics at this point is unclear. He was given Bactrim based on the OR cultures for MRSA, Citrobacter and Escherichia coli but, given his increasing creatinine, am concerned about continuing this antibiotic. Suggestion: 1. Discontinue Bactrim and follow off antibiotics
--- NOTE | 2017-09-11 12:35 | Patient Discharge Instructions ---
Discharge Instructions General Discharge Information You were seen/treated for: foot infection You had these procedures: I and D of foot Watch for these problems: Shortness of breathing, chest pain, severe pain, drainage, redness of foot or worsening of any other symptoms Other wound care: Follow with Dr Whittaker in one week Special Instructions: Please follow up with you primary care within 1 week of discharge. Please have your medication list reviewed. Please follow up with Dr Dye within 1 week Activity Full Activity/No Limits: No Activity Self Limited: Yes (heel touch only) Acute Coronary Syndrome Inclusion Criteria At DC or during hospital stay patient has or had the following: ACS DIAGNOSIS No Discharge Core Measures Meds if any: Prescribed or Continued at Discharge Meds if any: NOT Prescribed or Continued at Discharge Congestive Heart Failure Inclusion Criteria At DC or during hospital stay patient has or had the following: CHF DIAGNOSIS No Discharge Core Measures Meds if any: Prescribed or Continued at Discharge Meds if any: NOT Prescribed or Continued at Discharge Cerebrovascular accident Inclusion Criteria At DC or during hospital stay patient has or had the following: CVA/TIA Diagnosis No Discharge Core Measures Meds if any: Prescribed or Continued at Discharge Meds if any: NOT Prescribed or Continued at Discharge Venous thromboembolism Inclusion Criteria VTE Diagnosis No VTE Type NONE VTE Confirmed by (Test) NONE Discharge Core Measures - Per Current guidelines, there needs to be overlap - treatment for the first 5 days of Warfarin therapy. - If discharged on Warfarin prior to 5 days of - overlap therapy, the patient will need to be - assessed for post discharge needs including - *Post discharge parental anticoagulation - *Warfarin and/or parental anticoagulation education - *Follow up date to check INR post discharge At least 5 days overlap therapy as Inpatient No Meds if any: Prescribed or Continued at Discharge Note: Overlap Therapy is Warfarin and Anticoagulant Meds if any: NOT Prescribed or Continued at Discharge
[2017-09-11 14:01] VITALS: BP 136/58
--- NOTE | 2017-09-11 15:02 | PN- Pulmonary ---
Subjective HPI/Critical Care Issues: Mild pain noted in the foot Blood work reviewed creat to be rising Laboratory Tests 09/11 09/10 0715 0720 Chemistry Sodium (137 - 145 mmol/L) 139 143 Potassium (3.5 - 5.1 mmol/L) 4.6 4.5 Chloride (98 - 107 mmol/L) 102 102 Carbon Dioxide (22 - 30 mmol/L) 28 30 Anion Gap (5 - 16) 9 11 BUN (9 - 20 mg/dL) 34 H 31 H Creatinine (0.7 - 1.2 mg/dL) 1.5 H 1.3 H Estimated GFR (>60 ml/min) 46 L 55 L BUN/Creatinine Ratio (7 - 25 %) 22.7 23.8 Hematology CBC w Diff NO MAN DIFF REQ NO MAN DIFF REQ WBC (4.8 - 10.8 /CUMM) 3.2 L 2.6 L RBC (4.70 - 6.10 /CUMM) 3.56 L 3.67 L Hgb (14.0 - 18.0 G/DL) 10.0 L 10.4 L Hct (42 - 52 %) 30.3 L 31.3 L MCV (80.0 - 94.0 FL) 85.3 85.3 MCH (27.0 - 31.0 PG) 28.2 28.3 MCHC (33.0 - 37.0 G/DL) 33.0 33.2 RDW (11.5 - 14.5 %) 13.5 13.9 Plt Count (130 - 400 /CUMM) 208 207 MPV (7.4 - 10.4 FL) 8.3 8.3 Gran % (42.2 - 75.2 %) 60.8 60.7 Lymphocytes % (20.5 - 51.1 %) 20.0 L 21.0 Monocytes % (1.7 - 9.3 %) 15.0 H 14.1 H Eosinophils % (0 - 5 %) 3.4 3.8 Basophils % (0.0 - 2.0 %) 0.8 0.4 Absolute Granulocytes (1.4 - 6.5 /CUMM) 1.9 1.5 Absolute Lymphocytes (1.2 - 3.4 /CUMM) 0.6 L 0.5 L Absolute Monocytes (0.10 - 0.60 /CUMM) 0.5 0.4 Absolute Eosinophils (0.0 - 0.7 /CUMM) 0.1 0.1 Absolute Basophils (0.0 - 0.2 /CUMM) 0 0 Objective Current Medications: Current Medications Sig/Ira Start time Last Medication Dose Route Stop Time Status Admin Acetaminophen 650 MG Q6P PRN 09/06 1636 AC 09/09 PO 0833 Alprazolam 0.5 MG DAILY NEEDED PRN 09/06 1513 AC 09/11 PO 09/13 1512 0950 Amiodarone HCl 100 MG DAILY 09/06 1000 AC 09/11 PO 0950 Apixaban 5 MG BID 09/07 1000 AC 09/11 PO 0950 Aspirin 81 MG DAILY 09/06 1000 AC 09/11 PO 0949 Atorvastatin Calcium 10 MG 1700 09/06 1700 AC 09/10 PO 1704 Bupropion HCl 100 MG DAILY 09/06 1000 AC 09/11 PO 0950 Calcitriol 0.25 MCG 2200 09/07 2345 AC 09/10 PO 2132 Calcium Carbonate 500 MG TID 09/08 1600 AC 09/11 PO 0949 Cholecalciferol 400 IU DAILY 09/08 1119 AC 09/11 PO 0950 Escitalopram Oxalate 10 MG 2200 09/06 2200 AC 09/10 PO 2132 Fludrocortisone 100 MCG DAILY 09/06 1000 AC 09/11 Acetate PO 0949 Hydroxychloroquine 200 MG DAILY 09/06 1000 AC 09/11 Sulfate PO 0950 Insulin Aspart 0 TIDAC 09/09 1700 AC 09/11 SC 1210 Insulin Detemir 13 UNITS BID 09/09 2200 AC 09/11 SC 0948 Metoprolol Succinate 12.5 MG DAILY 09/06 1000 AC 09/11 PO 0949 Mycophenolate Mofetil 1,000 MG BID 09/05 2200 AC 09/11 PO 0949 Oxycodone HCl 5 MG Q6P PRN 09/06 1636 AC 09/08 PO 1856 Oxycodone/ 2 TAB Q6P PRN 09/06 1637 AC 09/07 Acetaminophen PO 2156 Sodium Chloride 1,000 ML Q13H 09/11 1315 DC IV 09/12 0214 Tacrolimus 3.5 MG 0600 09/08 1100 AC 09/11 PO 0613 Trimethoprim/ 1 TAB Q12H 09/09 1800 DC 09/11 Sulfamethoxazole PO 09/14 0601 0613 Vital Signs & I&O Last 24 Hrs of Vitals and I&O: Vital Signs Date Time Temp Pulse Resp B/P B/P Pulse O2 O2 Flow FiO2 Mean Ox Delivery Rate 09/11 1401 98.7 68 20 136/58 94 09/11 0950 128/74 09/11 0949 84 128/74 09/11 0645 98.6 60 18 136/80 94 Room Air 09/10 2222 98.1 62 20 120/60 92 Intake & Output 09/11 1600 09/11 0800 09/11 0000 Intake Total 100 600 Output Total Balance 100 600 Intake, Oral 100 600 Patient 208 lb Weight Weight Bed scale Measurement Method Impression/Plan Impression/Plan Impression/Plan: General Appearance: Alert, Oriented X3, Cooperative, No Acute Distress Skin: Right foot s/p surgery, dressing in place. Skin Temp/Moisture Exam: Warm/Dry Sepsis Skin Exam (color): Normal for Ethnicity HEENT: Atraumatic, EOMI, Mucous Membr. moist/pink Cardiovascular: Normal S1, Normal S2, irreg irreg Lungs: Clear to Auscultation, Normal Air Movement Abdomen: Soft, No Tenderness Extremities: as noted above, no sign of fresh bleeding. CUltures noted Pt s/p renal transplant with infected toe with osteo s/p surg on abx, now with ecoli and staph, s/p amputation and sub closure done on 09/09 ON bacrim now for rx of above with rising creatinine CKD s/p renal transplant On immunosupp rx, with mild leukopenia DM insulin requiring PVD Pafib on eliquis Depression REC Dc bactrim Watch creat adn potassium in am [place] po fluids and if unable to drink start ivf for one litre Continue anticoagulation, Reduce dose of eloquis now to 2.5 tonight instead of 5 mg as his creat has increased Watch him in the hospital to monitor potassium and creat Continue his immunosuppressive therapy Continue his rate control drugs Out pt vascular eval
[2017-09-11 22:10] VITALS: BP 148/66
[2017-09-12 06:16] VITALS: BP 110/70
--- NOTE | 2017-09-12 07:43 | PN- Housestaff ---
Subjective Follow-up For: Osteomyelitis of right toe status post surgery Subjective: Patient visited today, was sitting in bed comfortably in no acute distress, was alert and oriented. No fever or chills, no shortness of breathing, no chest pain, no other events. Bactrim was discontinued per ID, Eliquise dose was decreased to 2.5 BID due to increased Cr. Patient was stable to be discharged, noted does not need PT as he was prety independant. Review of Systems Constitutional: Reports: see HPI. Objective Last 24 Hrs of Vital Signs/I&O Vital Signs Date Time Temp Pulse Resp B/P B/P Pulse O2 O2 Flow FiO2 Mean Ox Delivery Rate 09/12 0917 97.4 54 110/70 09/12 0916 97.4 54 20 110/70 09/12 0616 97.4 54 20 110/70 97 Room Air 09/12 0000 94 Room Air 09/11 2210 98.6 57 20 148/66 94 Room Air 09/11 1401 98.7 68 20 136/58 94 Intake & Output 09/12 1600 09/12 0800 09/12 0000 Intake Total 50 800 Output Total 575 400 Balance -525 400 Intake, IV 0 Intake, Oral 50 800 Number 0 Bowel Movements Output, Urine 575 400 Patient 205 lb Weight Physical Exam General Appearance: Alert, Oriented X3, Cooperative, No Acute Distress Skin: Right foot s/p surgery, dressing in place Skin Temp/Moisture Exam: Warm/Dry Sepsis Skin Exam (color): Normal for Ethnicity HEENT: Atraumatic, EOMI, Mucous Membr. moist/pink Cardiovascular: Normal S1, Normal S2 Lungs: Clear to Auscultation Abdomen: Soft, No Tenderness Extremities: No Edema, as noted above Current Medications: Current Medications Sig/Ira Start time Last Medication Dose Route Stop Time Status Admin Acetaminophen 650 MG Q6P PRN 09/06 1636 AC 09/09 PO 0833 Alprazolam 0.5 MG DAILY NEEDED PRN 09/06 1513 AC 09/11 PO 09/13 1512 0950 Amiodarone HCl 100 MG DAILY 09/06 1000 AC 09/12 PO 0917 Apixaban 2.5 MG BID 09/11 2200 AC 09/12 PO 0917 Apixaban 5 MG BID 09/07 1000 DC 09/11 PO 0950 Aspirin 81 MG DAILY 09/06 1000 AC 09/12 PO 0917 Atorvastatin Calcium 10 MG 1700 09/06 1700 AC 09/11 PO 1622 Bisacodyl 5 MG DAILY 09/12 1000 AC PO Bisacodyl 5 MG DAILY 09/12 0830 CAN PO Bupropion HCl 100 MG DAILY 09/06 1000 AC 09/12 PO 0917 Calcitriol 0.25 MCG 2200 09/07 2345 AC 09/11 PO 2124 Calcium Carbonate 500 MG TID 09/08 1600 AC 09/12 PO 0917 Cholecalciferol 400 IU DAILY 09/08 1119 AC 09/12 PO 0917 Escitalopram Oxalate 10 MG 22009/06 2200 AC 09/11 PO 2124 Fludrocortisone 100 MCG DAILY 09/06 1000 AC 09/12 Acetate PO 0917 Hydroxychloroquine 200 MG DAILY 09/06 1000 AC 09/12 Sulfate PO 09 Insulin Aspart 0 TIDAC 09/09 1700 AC 09/11 SC 1623 Insulin Detemir 13 UNITS BID 09/09 2200 AC 09/12 SC 0917 Metoprolol Succinate 12.5 MG DAILY 09/06 1000 AC 09/12 PO 0916 Mycophenolate Mofetil 1,000 MG BID 09/05 2200 AC 09/12 PO 0916 Oxycodone HCl 5 MG Q6P PRN 09/06 1636 AC 09/11 PO 2124 Oxycodone/ 2 TAB Q6P PRN 09/06 1637 AC 09/12 Acetaminophen PO 0921 Sodium Chloride 1,000 ML Q13H 09/11 1315 DC IV 09/12 0214 Tacrolimus 3.5 MG 0600 09/08 1100 AC 09/12 PO 0631 Trimethoprim/ 1 TAB Q12H 09/09 1800 DC 09/11 Sulfamethoxazole PO 09/14 0601 0613 Last 24 Hrs of Lab/Joel Results Last 24 Hrs of Labs/Mics: Laboratory Tests 09/12/17 0705: Anion Gap 10, Estimated GFR 50 L, BUN/Creatinine Ratio 22.1, CBC w Diff NO MAN DIFF REQ, RBC 3.53 L, MCV 85.1, MCH 28.4, MCHC 33.3, RDW 13.4, MPV 8.3, Gran % 58.3, Lymphocytes % 22.6, Monocytes % 14.4 H, Eosinophils % 4.4, Basophils % 0.3, Absolute Granulocytes 1.9, Absolute Lymphocytes 0.7 L, Absolute Monocytes 0.5, Absolute Eosinophils 0.1, Absolute Basophils 0 Assessment/Plan Assessment: Patient is a 71-year-old male presented for surgery due to right toe osteomyelitis failed antibiotic treatment 1 week ago PMH: stroke 8 years ago with no residual neuro deficit, hypertension, hyperlipidemia, A. 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 Labs showed a WBC count of 3.3, hemoglobin of 10.3 with a normal MCV. BUN 40, creatinine 1.5, CRP 5.7, ESR 48. Foot MRI showed suspicion of osteomyelitis and evidence of innervation injury. Patient was admitted to general medicine floor for management of following conditions: Evidence of osteomyelitis in right hallucis Patient underwent surgery on 09/06/2017: 1 open incision and drainage deep to the deep fascia with exposure of the extensor and flexor tendon and tendon sheath multiple sites right foot 2 hallux amputation right foot 3 intraoperative administration of ankle block anesthesia 4 excisional debridement Cutlure grow MRSA, Ecoli and Ctiro. started on Bactrim. Patient underwent delayed closure/I and D on 09/09. - patient stable to be discharged - Discontinued bactrim PO per ID - follow outpatient with Dr Suazo and Dr Whittaker in 1w with blood work History of renal transplant -Continued patient on hydroxychloroquine 200 mg daily -Continued Mycophenolate 1 g twice a day History of atrial fibrillation -restarted Eliquis, decreased the dose to 2.5 BID considering cr increase -Continued amiodarone 100 mg daily IDDM -Accuchecks and sliding scale Chronic medical problems - 10 mg Lipitor for his hyperlipidemia - metoprolol 12.5 daily for his hypertension - Lexapro 10 mg and Wellbutrin 100 mg and Xanax 0.5 when necessary for anxiety - 81 mg aspirin for heart health - Resumed tacrolimus and Mycophenolate DVT prophylaxis with Alps Diabetic diet Full code Problem List: 1. Osteomyelitis of foot, right, acute Pain Ratin Pain Location: None Pain Goal: Pain 4 or less Pain Plan: Continue current plan Tomorrow's Labs & Rationales: None Discharge Plan Discharge Disposition: home
[2017-09-12 09:16] LABS: ABSOLUTE BASOPHIL COUNT 0 /CUMM (0.0-0.2); ABSOLUTE EOSINOPHIL COUNT 0.1 /CUMM (0.0-0.7); ABSOLUTE GRANULOCYTE CT 1.9 /CUMM (1.4-6.5); ABSOLUTE LYMPH COUNT 0.7 /CUMM (1.2-3.4); ABSOLUTE MONOCYTE COUNT 0.5 /CUMM (0.10-0.60); BASOPHIL % 0.3 % (0.0-2.0); EOSINOPHIL % 4.4 % (0-5); GRANULOCYTE % 58.3 % (42.2-75.2); MEAN CORPUSCULAR HGB 28.4 PG (27.0-31.0); MEAN CORPUSCULAR HGB CONC 33.3 G/DL (33.0-37.0); MEAN CORPUSCULAR VOLUME 85.1 FL (80.0-94.0); MEAN PLATELET VOLUME 8.3 FL (7.4-10.4); PLATELET COUNT 192 /CUMM (130-400); RBC DISTRIBUTION WIDTH 13.4 % (11.5-14.5); RED BLOOD CELL CT 3.53 /CUMM (4.70-6.10); WHITE BLOOD CELL COUNT 3.2 /CUMM (4.8-10.8)
[2017-09-12 09:17] VITALS: BP 110/70
[2017-09-12] MEDS ORDERED: ELIQUIS5 M1 PO (11:22)
--- NOTE | 2017-09-12 13:18 | PN- Pulmonary ---
Subjective HPI/Critical Care Issues: DOing well stable Patient visited today, was sitting in bed comfortably in no acute distress, was alert and oriented. No fever or chills, no shortness of breathing, no chest pain, no other events. Bactrim was discontinued per ID, Eliquise dose was decreased to 2.5 BID due to increased Cr. Patient was stable to be discharged, noted does not need PT as he was prety independant. Objective Current Medications: Current Medications Sig/Ira Start time Last Medication Dose Route Stop Time Status Admin Acetaminophen 650 MG Q6P PRN 09/06 1636 AC 09/09 PO 0833 Alprazolam 0.5 MG DAILY NEEDED PRN 09/06 1513 AC 09/11 PO 09/13 1512 0950 Amiodarone HCl 100 MG DAILY 09/06 1000 AC 09/12 PO 0917 Apixaban 2.5 MG BID 09/11 2200 AC 09/12 PO 0917 Apixaban 5 MG BID 09/07 1000 DC 09/11 PO 0950 Aspirin 81 MG DAILY 09/06 1000 AC 09/12 PO 0917 Atorvastatin Calcium 10 MG 1700 09/06 1700 AC 09/11 PO 1622 Bisacodyl 5 MG DAILY 09/12 1000 AC PO Bisacodyl 5 MG DAILY 09/12 0830 CAN PO Bupropion HCl 100 MG DAILY 09/06 1000 AC 09/12 PO 0917 Calcitriol 0.25 MCG 09/07 2345 AC 09/11 PO 2124 Calcium Carbonate 500 MG TID 09/08 1600 AC 09/12 PO 0917 Cholecalciferol 400 IU DAILY 09/08 1119 AC 09/12 PO 0917 Escitalopram Oxalate 10 MG 09/06 2200 AC 09/11 PO 2124 Fludrocortisone 100 MCG DAILY 09/06 1000 AC 09/12 Acetate PO 0917 Hydroxychloroquine 200 MG DAILY 09/06 1000 AC 09/12 Sulfate PO 0917 Insulin Aspart 0 TIDAC 09/09 1700 AC 09/12 SC 1225 Insulin Detemir 13 UNITS BID 09/09 2200 AC 09/12 SC 0917 Metoprolol Succinate 12.5 MG DAILY 09/06 1000 AC 09/12 PO 0916 Mycophenolate Mofetil 1,000 MG BID 09/05 2200 AC 09/12 PO 0916 Oxycodone HCl 5 MG Q6P PRN 09/06 1636 AC 09/11 PO 2124 Oxycodone/ 2 TAB Q6P PRN 09/06 1637 AC 09/12 Acetaminophen PO 0921 Sodium Chloride 1,000 ML Q13H 09/11 1315 DC IV 09/12 0214 Tacrolimus 3.5 MG 0600 09/08 1100 AC 09/12 PO 0631 Vital Signs & I&O Last 24 Hrs of Vitals and I&O: Vital Signs Date Time Temp Pulse Resp B/P B/P Pulse O2 O2 Flow FiO2 Mean Ox Delivery Rate 09/12 0917 97.4 54 110/70 09/12 0916 97.4 54 20 110/70 09/12 0616 97.4 54 20 110/70 97 Room Air 09/12 0000 94 Room Air 09/11 2210 98.6 57 20 148/66 94 Room Air 09/11 1401 98.7 68 20 136/58 94 Intake & Output 09/12 1600 09/12 0800 09/12 0000 Intake Total 50 800 Output Total 575 400 Balance -525 400 Intake, IV 0 Intake, Oral 50 800 Number 0 Bowel Movements Output, Urine 575 400 Patient 205 lb Weight Impression/Plan Impression/Plan Impression/Plan: General Appearance: Alert, Oriented X3, Cooperative, No Acute Distress Skin: Right foot s/p surgery, dressing in place. Skin Temp/Moisture Exam: Warm/Dry Sepsis Skin Exam (color): Normal for Ethnicity HEENT: Atraumatic, EOMI, Mucous Membr. moist/pink Cardiovascular: Normal S1, Normal S2, irreg irreg Lungs: Clear to Auscultation, Normal Air Movement Abdomen: Soft, No Tenderness Extremities: as noted above, no sign of fresh bleeding. CUltures noted Pt s/p renal transplant with infected toe with osteo s/p surg on abx, now with ecoli and staph, s/p amputation and sub closure done on 09/09 ON bacrim now for rx of above with rising creatinine CKD s/p renal transplant On immunosupp rx, with mild leukopenia DM insulin requiring PVD Pafib on eliquis Depression REC Stable now can resume usual dose of eloquis upon dc To do blood work in few days to monitor creat Watch him in the hospital to monitor potassium and creat Continue his immunosuppressive therapy Continue his rate control drugs Out pt vascular eval
[2017-09-12] MEDS ORDERED: COENZYME Q10100 M1 PO (14:09)
[2017-09-12] MEDS ORDERED: CALCIUM ANTACI PO (14:10)
[2017-09-12] MEDS ORDERED: VITAMIN D-32000 UNIT PO (14:13)
== END 2017-09-12 14:45 | DRG 617 ==
LOC: ERH 15:49 → 2NA 19:20 → ERHI 19:20 → ENRESERV 21:02 → CANRESERV 21:02 → ENRESERV 21:12 → ENTRNSPT 22:27 → 2NA 22:43 → EDTRNSPTSTS 22:51 → EDTRNSPT 22:51 → CMPTRNSPT 09-06 07:24 → 2NA 09-06 11:31 → ENTRNSPT 09-06 11:59 → EDTRNSPT 09-06 12:16 → EDTRNSPTSTS 09-06 12:16 → CMPTRNSPT 09-06 12:38 → 2NA 09-07 09:06 → ENTRNSPT 09-09 15:32 → CMPTRNSPT 09-09 16:15 → 2NA 09-11 11:02 → ENPENDDIS 09-12 11:38 → 2NA 09-12 14:45
PROVIDERS: Internal Medicine; Physician Assistant Medical; Radiology Vascular & Interventional Radiology; Student in an Organized Health Care Education/Training Program
PROC: 0Y6M0Z9 Detachment at Right Foot, Partial 1st Ray, Open Approach (ICD-10-PCS; principal; 2017-09-06)
PROC: 0JBQ0ZZ Excision of Right Foot Subcutaneous Tissue and Fascia, Open Approach (ICD-10-PCS; 2017-09-09)
PROC: 0HXMXZZ Transfer Right Foot Skin, External Approach (ICD-10-PCS; 2017-09-09)
DX: E11.621 Type 2 diabetes mellitus with foot ulcer (principal); M86.171 Other acute osteomyelitis, right ankle and foot; E11.22 Type 2 diabetes mellitus with diabetic chronic kidney disease; I12.0 Hypertensive chronic kidney disease with stage 5 chronic kidney disease or end stage renal disease; B95.62 Methicillin resistant Staphylococcus aureus infection as the cause of diseases classified elsewhere; Z94.0 Kidney transplant status; E11.69 Type 2 diabetes mellitus with other specified complication; I48.2 Chronic atrial fibrillation; N18.6 End stage renal disease; Z79.01 Long term (current) use of anticoagulants; I73.9 Peripheral vascular disease, unspecified; Z86.73 Personal history of transient ischemic attack (TIA), and cerebral infarction without residual deficits; E78.5 Hyperlipidemia, unspecified; Z79.899 Other long term (current) drug therapy; Z79.82 Long term (current) use of aspirin; Z79.4 Long term (current) use of insulin; Z89.421 Acquired absence of other right toe(s); Z16.30 Resistance to unspecified antimicrobial drugs; F32.9 Major depressive disorder, single episode, unspecified; E11.42 Type 2 diabetes mellitus with diabetic polyneuropathy; L97.514 Non-pressure chronic ulcer of other part of right foot with necrosis of bone
CPT/HCPCS: 2NAP; 2NASP; 75657; 87070; 87075; 87184; 36415; 36592; 82436; 87040; 87147; 88305; 93005; 93010; 97161-GP; J1644; J1815; J2001; J3490; J7042; J7517

== ENCOUNTER 2017-09-22 05:48 | Inpatient (IN) | payer OTHER, MEDICARE ==
[~2017-09-22] VITALS: Ht 179.1 cm; Wt 97.2 kg
[~2017-09-22 05:48] MED LIST changes: +AMIODARONE HCL200 M1 PO; +ASPIRIN EC81 M1 PO; +ATORVASTATIN CA10 M1 PO; +BUPROPION HCL100 M2 PO; +CALCITRIOL0.25 MC1 PO; +CALCIUM ANTACI PO; +COENZYME Q10100 M1 PO; +ELIQUIS5 M1 PO; +ENVARSUS XR0.75 MG PO; +ENVARSUS XR1 MG PO; +FLUDROCORTISON0.1 M1 PO; +LEXAPRO20 M1 PO; +TOPROL XL25 M1 PO; +VITAMIN D-32000 UNIT PO
--- NOTE | 2017-09-22 06:52 | ED GENERAL ADULT ---
See Addendum History of Present Illness General Chief Complaint: Foot or Ankle Injury Stated Complaint: BIBA "TOE WEEPING" Source: patient, old records, EMS Exam Limitations: no limitations Vital Signs & Intake/Output Vital Signs & Intake/Output Vital Signs Date Time Temp Pulse Resp B/P B/P Pulse O2 O2 Flow FiO2 Mean Ox Delivery Rate 09/22 1058 101.3 80 20 138/58 94 Room Air 09/22 1011 101.0 09/22 0827 101.4 09/22 0824 101.4 87 20 143/60 95 Room Air 09/22 0625 96 Room Air 09/22 0550 100.1 72 18 130/50 96 Room Air Allergies Coded Allergies: NO KNOWN ALLERGIES (NONE 09/09/17) Reconcile Medications Alprazolam 0.5 MG TABLET 1 TAB PO DAILY PRN Anxiety (Reported) Amiodarone (Cordarone) 200 MG TAB 0.5 TAB PO DAILY A.fib (Reported) Apixaban (Eliquis) 5 MG TABLET 1 TAB PO BID Blood Thinner (Reported) Aspirin (Ecotrin*) 81 MG TABLET.DR 1 TAB PO DAILY Heart Health (Reported) Atorvastatin Calcium 10 MG TABLET 1 TAB PO DAILY cholesterol (Reported) Bupropion HCl 100 MG TABLET 1 TAB PO DAILY pain (Reported) Calcitriol 0.25 MCG CAPSULE 1 CAP PO DAILY Bone health (Reported) Calcium (Elemental-Fr Calcarb) (Calcium Antacid) 400 MG CALCIUM (1,000 MG) TAB.CHEW 1,000 MG PO TID Supplement (Reported) Cholecalciferol (Vitamin D3) (Vitamin D-3) 2,000 UNIT TABLET 1 TAB PO DAILY Supplement (Reported) Coenzyme Q10 100 MG CAPSULE 1 CAP PO DAILY Supplement (Reported) Escitalopram Oxalate (Lexapro) 20 MG TABLET 1 TAB PO QPM Anxiety (Reported) Fludrocortisone Acetate 0.1 MG TABLET 1 TAB PO DAILY SUPPLEMENT (Reported) Hydroxychloroquine Sulfate 200 MG TABLET 1 TAB PO DAILY . (Reported) Insulin Glargine,Hum.rec.anlog (Lantus Solostar) 100 UNIT/ML (3 ML) INSULN.PEN 25 UNIT SC DAILY AC Blood sugar (Reported) 26 U daily Insulin Lispro (Humalog) 100 UNIT/ML CARTRIDGE 0 SC TIDAC/HS Blood sugar ( Reported) Please take as follow:\\ Blood sugar 80-150 mg/dl: none 151-200 mg/dl: 2 U 201-250 mg/dl: 4 U 251-300 mg/dl: 6 U 301-350 mg/dl: 8 U 351-400 mg/dl: 10 U more than 401 mg/dl: 12 U and call Metoprolol Succ XL (Toprol XL) 25 MG TAB 0.5 TAB PO DAILY HEART HEALTH ( Reported) Mycophenolate Mofetil (Cellcept) 250 MG CAPSULE 4 CAP PO BID Immunotherapy ( Reported) Tacrolimus (Envarsus XR) 0.75 MG TAB.ER.24H 2 TAB PO DAILY TRANSPLANT ( Reported) Tacrolimus (Envarsus XR) 1 MG TAB.ER.24H 2 TAB PO DAILY TRANSPLANT (Reported) Vit A,C & E/Lutein/Minerals (Ocuvite With Lutein Tablet) 1,000-60-2 TABLET 1 TAB PO DAILY Supplement (Reported) Core Measure Meds Pre-Hospital aspirin, eliquis Triage Note: TRIAGE: BIBA FROM HOME REPORTING R TOE WEEPING X 2 WEEKS S/P AMPUTATION, REPORTING "HAVE AN APPT TOMORROW BUT DON'T WANT TO WAIT." PATIENT DENIES PAIN. PER EMS, PATIENT STATED HE WAS UNABLE TO AMBULATE BUT WAS WITNESSED AMBULATING W/O DIFFICULTY AND WENT DOWN A FLIGHT OF STAIRS W/O DIFFICULTY. DENIES OTHER COMPLAINTS. Triage Nurses Notes Reviewed? yes Onset: yesterday Duration: hour(s):, continues in ED, waxing and waning Timing: recent history Injury Environment: home Severity: moderate Modifying Factors: Worsens With: eating. HPI: 1 day prior to admission patient complains of abdominal cramps nausea vomiting diarrhea currently on antibiotics for osteomyelitis of the right foot. He feels the GI symptoms are similar to his previous C. difficile infection. He also reports there's been increased bleeding and drainage from the operative site. He denies fever chills chest pain cough shortness breath headache. ([place] RANKIN,Abel) Past History Travel History Traveled to [place] past 21 day No Medical History Any Pertinent Medical History? 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 No (Abel Perry MD) Review of Systems Review of Systems Constitutional: Reports: see HPI, malaise. EENTM: Reports: no symptoms. Respiratory: Reports: no symptoms. Cardiovascular: Reports: no symptoms. GI: Reports: see HPI, abdominal pain, diarrhea, nausea, vomiting. Genitourinary: Reports: no symptoms. Musculoskeletal: Reports: see HPI, joint pain. Skin: Reports: see HPI. Neurological/Psychological: Reports: no symptoms. Hematologic/Endocrine: Reports: no symptoms. Immunologic/Allergic: Reports: no symptoms. All Other Systems: Reviewed and Negative (Abel Perry MD) Physical Exam Physical Exam General Appearance: well developed/nourished, alert, awake, anxious, mild distress Head: atraumatic, normal appearance Eyes: Bilateral: normal appearance, PERRL, EOMI. Ears, Nose, Throat: normal pharynx, normal ENT inspection, hearing grossly normal Neck: normal inspection, supple, full range of motion, no midline tenderness Respiratory: normal breath sounds, chest non-tender, no respiratory distress, quiet respiration, lungs clear Cardiovascular: normal peripheral pulses, irregularly irregular, norml femoral pulses equa Peripheral Pulses: 4+ carotid (R), 4+ carotid (L) Gastrointestinal: normal bowel sounds, soft, non-tender, no organomegaly Back: normal inspection, normal range of motion, no vertebral tenderness Extremities: no edema, pelvis stable, R foot sutures intact without evidence of discharge or inflammation. Dried blood about stump of 2nd digit. Mild erythema over dorsum of foot patient reports due to dressing friction. 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 Lymphatic: no anterior cervical fortunato Core Measures ACS in differential dx? No CVA/TIA Diagnosis: No Sepsis Present: No Sepsis Focused Exam Completed? No (Abel Perry MD) Progress Differential Diagnoses I considered the following diagnoses in my evaluation of the patient: colitis diverticulitis post op complications Plan of Care: Orders Procedure Date/time Status Nothing by Mouth 09/22 D Active Admit to inpatient 09/22 1325 Active Vital Signs 09/22 1325 Active Code Status 09/22 1325 Active C-REACTIVE PROTEIN 09/22 0710 Complete PARTIAL THROMBOPLASTIN TIME 09/22 0651 Complete PROTHROMBIN TIME 09/22 0651 Complete LIPASE 09/22 0651 Complete HIGH SENSITIVITY CRP 09/22 0651 Complete WESTERGREN SED RATE 09/22 0651 Complete COMPREHENSIVE METABOLIC PANEL 09/22 650 Complete CBC WITHOUT DIFFERENTIAL 09/22 650 Complete Laboratory Tests 09/22/17 0710: Anion Gap 15, Estimated GFR 37 L, BUN/Creatinine Ratio 26.1 H, Glucose 227 H, Calcium 7.8 L, Total Bilirubin 0.8, AST 19, ALT 22, Alkaline Phosphatase 77, C- Reactive Prot, Quant > 9.0 H, C-React Prot High Sens > 15.0 H, Total Protein 5.7 L, Albumin 3.3 L, Globulin 2.4, Albumin/Globulin Ratio 1.4, Lipase < 10 L , PT 28.2 H, INR 2.56 H, APTT 29, CBC w Diff MAN DIFF ORDERED, RBC 3.57 L, MCV 85.0, MCH 28.1, MCHC 33.0, RDW 13.9, MPV 7.9, Gran % 80.5 H, Lymphocytes % 5.8 L, Monocytes % 13.3 H, Eosinophils % 0.4, Basophils % 0, Absolute Granulocytes 2.6, Segmented Neutrophils 70, Band Neutrophils 6 H, Absolute Lymphocytes 0.2 L, Lymphocytes 5 L, Monocytes 17 H, Absolute Monocytes 0.4, Absolute Eosinophils 0, Basophils 2, Absolute Basophils 0, Platelet Estimate ADEQUATE, Poikilocytosis 2+, Anisocytosis 1+, Ovalocytes 1+, ESR Westergren 72 H Initial ED EKG: none Hand-Off Endorsed To: Sumeet Reyna DO Endorsed Time: 708 Pending: consult (Podiatry eval), labs (Abel Perry MD) Departure Departure Disposition: STILL A PATIENT Condition: Stable Clinical Impression Primary Impression: Nausea, vomiting, and diarrhea Secondary Impressions: Post-operative state Referrals: Gilbert Suazo MD (PCP/Family) Departure Forms: Customer Survey General Discharge Information (Abel Perry MD) Admission Note Spoke With: Lakeisha RANKIN,Gilbert Mark Documentation of Exam: Documentation of any treatments & extenuating circumstances including Concerns Regarding Discharge (functional status, medication knowledge or non-compliance, living conditions, etc.) that warrant an admission rather than observation: [The patient needs admission for surgical department, podiatry consultation, infectious disease consultation, and overseeing medical management] (Sumeet Reyna DO) Critical Care Note Critical Care Note Critical Care Time: non-applicable (Abel Perry MD)
[2017-09-22 07:33] LABS: ABSOLUTE BASOPHIL COUNT 0 /CUMM (0.0-0.2); ABSOLUTE EOSINOPHIL COUNT 0 /CUMM (0.0-0.7); ABSOLUTE GRANULOCYTE CT 2.6 /CUMM (1.4-6.5); ABSOLUTE LYMPH COUNT 0.2 /CUMM (1.2-3.4); ABSOLUTE MONOCYTE COUNT 0.4 /CUMM (0.10-0.60); BASOPHIL % 0 % (0.0-2.0); EOSINOPHIL % 0.4 % (0-5); GRANULOCYTE % 80.5 % (42.2-75.2); HEMATOCRIT 30.3 % (42-52); MEAN CORPUSCULAR HGB 28.1 PG (27.0-31.0); MEAN PLATELET VOLUME 7.9 FL (7.4-10.4); PLATELET COUNT 250 /CUMM (130-400); RBC DISTRIBUTION WIDTH 13.9 % (11.5-14.5); RED BLOOD CELL CT 3.57 /CUMM (4.70-6.10); WHITE BLOOD CELL COUNT 3.2 /CUMM (4.8-10.8)
[2017-09-22 07:52] LABS: PT 28.2 SEC (9.4-12.5); PTT 29 SEC (25-37)
--- NOTE | 2017-09-22 13:30 | History & Physical ---
Tahira RANKIN,Jace 09/22/17 4290: General Information and HPI MD Statement: I have seen and personally examined BOBBI VELARDE and documented this H&P. The patient is a 71 year old M who presented with a patient stated chief complaint of [osteomyelitis]. Source of Information: patient, old records Exam Limitations: no limitations History of Present Illness: Patient is a 71-year-old male with a PMH significant for ESRD status post renal transplant on tacrolimus and CellCept, paroxysmal atrial fibrillation on Eliquis , HTN, HLD, CVA, DM, with recent admission to [facility] for osteomyelitis , status post amputation of the right and left third toes and left great toe who presented to the [facility] ED complaining of a several day history of malaise, nausea, vomiting, diarrhea, poor appetite. Patient was discharged from [facility] on 09/12/17. He reports that for several days after discharge she was in his usual state of health however over the last week he reports generalized malaise, subjective fevers MAXIMUM TEMPERATURE at home of 101.1, poor appetite and poor by mouth intake, nausea, vomiting (nonbloody, nonbilious , watery in consistency) and prior to presentation to the ED 2 episodes of watery nonbloody diarrhea. Patient last took antibiotics on his last admission on 09/11/17, he was taking Bactrim. He denies any abdominal pain but describes a discomfort, his abdomen. He endorses intermittent shooting pains related /10 but very brief and infrequent in nature. He reports chronic numbness of his feet bilaterally. He denies any chest pain, shortness of breath, palpitations, chills, loss of consciousness, lightheadedness, dizziness. Allergies/Medications Allergies: Coded Allergies: NO KNOWN ALLERGIES (NONE 09/09/17) Home Med list Alprazolam 0.5 MG TABLET 1 TAB PO DAILY PRN Anxiety (Reported) Amiodarone (Cordarone) 200 MG TAB 0.5 TAB PO DAILY A.fib (Reported) Apixaban (Eliquis) 5 MG TABLET 1 TAB PO BID Blood Thinner (Reported) Aspirin (Ecotrin*) 81 MG TABLET.DR 1 TAB PO DAILY Heart Health (Reported) Atorvastatin Calcium 10 MG TABLET 1 TAB PO DAILY cholesterol (Reported) Bupropion HCl 100 MG TABLET 1 TAB PO DAILY pain (Reported) Calcitriol 0.25 MCG CAPSULE 1 CAP PO DAILY Bone health (Reported) Calcium (Elemental-Fr Calcarb) (Calcium Antacid) 400 MG CALCIUM (1,000 MG) TAB.CHEW 1,000 MG PO TID Supplement (Reported) Cholecalciferol (Vitamin D3) (Vitamin D-3) 2,000 UNIT TABLET 1 TAB PO DAILY Supplement (Reported) Coenzyme Q10 100 MG CAPSULE 1 CAP PO DAILY Supplement (Reported) Escitalopram Oxalate (Lexapro) 20 MG TABLET 1 TAB PO QPM Anxiety (Reported) Fludrocortisone Acetate 0.1 MG TABLET 1 TAB PO DAILY SUPPLEMENT (Reported) Hydroxychloroquine Sulfate 200 MG TABLET 1 TAB PO DAILY . (Reported) Insulin Glargine,Hum.rec.anlog (Lantus Solostar) 100 UNIT/ML (3 ML) INSULN.PEN 25 UNIT SC DAILY AC Blood sugar (Reported) 26 U daily Insulin Lispro (Humalog) 100 UNIT/ML CARTRIDGE 0 SC TIDAC/HS Blood sugar ( Reported) Please take as follow:\ Blood sugar 80-150 mg/dl: none 151-200 mg/dl: 2 U 201-250 mg/dl: 4 U 251-300 mg/dl: 6 U 301-350 mg/dl: 8 U 351-400 mg/dl: 10 U more than 401 mg/dl: 12 U and call Metoprolol Succ XL (Toprol XL) 25 MG TAB 0.5 TAB PO DAILY HEART HEALTH ( Reported) Mycophenolate Mofetil (Cellcept) 250 MG CAPSULE 4 CAP PO BID Immunotherapy ( Reported) Tacrolimus (Envarsus XR) 0.75 MG TAB.ER.24H 2 TAB PO DAILY TRANSPLANT ( Reported) Vit A,C & E/Lutein/Minerals (Ocuvite With Lutein Tablet) 1,000-60-2 TABLET 1 TAB PO DAILY Supplement (Reported) Past History Travel History Traveled to [place] past 21 day No Medical History Neurological: STROKE EENT: NONE Cardiovascular: hypertension, hyperlipidemia, AFIB (ON COUMADIN) Respiratory: NONE Gastrointestinal: NONE Hepatic: NONE Renal: renal transplant Musculoskeletal: fracture, R ARM FRACTURE Psychiatric: NONE Endocrine: IDDM Blood Disorders: NONE Cancer(s): NONE 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 Denies: chills, weakness. EENTM: Reports: no symptoms. Cardiovascular: Denies: chest pain, palpitations, syncope. Respiratory: Denies: cough, short of breath, sputum production. GI: Reports: see HPI, diarrhea, nausea, vomiting. Denies: abdominal pain, melena, bloody stool. Genitourinary: Reports: no symptoms. Musculoskeletal: Reports: see HPI, joint pain (intermittent foot pain ). Skin: Reports: no symptoms. Neurological/Psychological: Reports: numbness (chronic, feet). Hematologic/Endocrine: Reports: no symptoms. Exam & Diagnostic Data Last 24 Hrs of Vital Signs/I&O Vital Signs Date Time Temp Pulse Resp B/P B/P Pulse O2 O2 Flow FiO2 Mean Ox Delivery Rate 09/22 1529 100.5 88 20 195/84 96 Room Air 09/22 1334 101.1 87 20 175/74 91 Room Air 09/22 1058 101.3 80 20 138/58 94 Room Air 09/22 1011 101.0 09/22 0827 101.4 09/22 0824 101.4 87 20 143/60 95 Room Air 09/22 0625 96 Room Air 09/22 0550 100.1 72 18 130/50 96 Room Air Intake & Output 09/22 1600 09/22 0800 09/22 0000 Intake Total 1000 Output Total Balance 1000 Intake, IV 1000 Patient 195 lb Weight Weight Reported by Patient Measurement Method Physical Exam General Appearance Alert, Oriented X3, Cooperative, No Acute Distress Skin Temp/Moisture Exam: Warm/Dry Cardiovascular Regular Rate, Normal S1, Normal S2 Lungs Clear to Auscultation, Normal Air Movement Abdomen Normal Bowel Sounds, Soft, No Tenderness Neurological Normal Speech, decreased sensation on the feet bilaterally Extremities R foot with black, necrotic tissue around the surgical site, draining draining small amount of blood, nontender to palpation, poor pedal pulses, fistula on the L arm with palpable thrill Last 24 Hrs of Labs/Joel: Laboratory Tests 09/22/17 0710: Anion Gap 15, Estimated GFR 37 L, BUN/Creatinine Ratio 26.1 H, Glucose 227 H, Calcium 7.8 L, Phosphorus 3.3, Magnesium 1.5 L, Total Bilirubin 0.8, AST 19, ALT 22, Alkaline Phosphatase 77, Creatine Kinase 167, Troponin I 0.04, C- Reactive Prot, Quant > 9.0 H, C-React Prot High Sens > 15.0 H, Total Protein 5.7 L, Albumin 3.3 L, Globulin 2.4, Albumin/Globulin Ratio 1.4, Lipase < 10 L , TSH 1.380, Free T4 1.95, PTH Intact 23.1, PT 28.2 H, INR 2.56 H, APTT 29, CBC w Diff MAN DIFF ORDERED, RBC 3.57 L, MCV 85.0, MCH 28.1, MCHC 33.0, RDW 13.9, MPV 7.9, Gran % 80.5 H, Lymphocytes % 5.8 L, Monocytes % 13.3 H, Eosinophils % 0.4, Basophils % 0, Absolute Granulocytes 2.6, Segmented Neutrophils 70, Band Neutrophils 6 H, Absolute Lymphocytes 0.2 L, Lymphocytes 5 L, Monocytes 17 H, Absolute Monocytes 0.4, Absolute Eosinophils 0, Basophils 2, Absolute Basophils 0, Platelet Estimate ADEQUATE, Poikilocytosis 2+, Anisocytosis 1+, Ovalocytes 1+, ESR Westergren 72 H Microbiology 09/22 1857 EXTREMITIE: Gross Specimen Examination - RECD 09/22 1857 EXTREMITIE: Gram Stain - RECD 09/22 1500 BLOOD: Blood Culture - RECD 09/22 1445 BLOOD: Blood Culture - RECD Diagnostic Data EKG Results new onset LBBB Assessment/Plan Assessment: Patient is a 71-year-old male with a PMH significant for ESRD status post renal transplant on tacrolimus and CellCept, paroxysmal atrial fibrillation on Eliquis , HTN, HLD, CVA, DM, with recent admission to [facility] for osteomyelitis , status post amputation of the right and left third toes and left great toe who presented to the [facility] ED complaining of a several day history of malaise, nausea, vomiting, diarrhea, poor appetite. he has necrotic tissue surrounding his recent surgical site on the right foot, he is also febrile with leukopenia, however this is chronic, likely representing recurrent osteomyelitis and cellulitis. Problem list #Right foot infection, with recent history of osteomyelitis status post toe amputation #SHIRA on CKD #New onset left bundle branch block #Hypomagnesemia, hypocalcemia #Chronic medical problems including PVD, paroxysmal A. fib, HTN, HLD, DM Plan -Initially admitted to general medicine however in light of new onset left bundle branch block will be transferred to telemetry postoperatively -Serial troponin and EKG -Echocardiogram -Empiric antibiotic coverage with vancomycin, IV Flagyl, IV ceftriaxone -Patient to go to the OR with Dr. Dye for debridement -Cardiology consult called with Dr. Prakash, on-call vision care associate -Nephrology consult called for on-call painter and decorator, Dr. Lindo -Oral repletion of magnesium -Maintenance fluids with D5 normal saline -NPO insulin sliding scale -If patient continues to have abdominal discomfort with accompanying nausea and vomiting will pursue abdominal CT -Patient continues to complain of diarrhea, consider C. difficile cultures -Follow-up blood cultures and/or cultures -Continue home medications including immunosuppressive therapy, decrease Eliquis 2.5 twice a day Diet: Nothing by mouth pending OR, then begin diabetic diet DVT prophylaxis: Eliquis CODE STATUS: Full code As Ranked By This Provider Problem List: 1. Nausea, vomiting, and diarrhea 2. Osteomyelitis of foot, right, acute Core Measures/Misc (03/20) Acute Coronary Syndrome ACS Diagnosis: No Congestive Heart Failure Congestive Heart Failure Diagnosis No Cerebrovascular Accident CVA/TIA Diagnosis: No VTE (View Protocol) VTE Risk Factors Age>40 No Mechanical VTE Prophylaxis d/t N/A MechProphylax Ordered No VTE Pharm Prophylaxis d/t Surgical Contraindication Sepsis (View protocol) Sepsis Present: No [facility] 1355: Attending MD Review Statement Attending Statement Attending MD Statement: examined this patient, discuss w/resident/PA/PHARMACY BENEFITS COORDINATOR, agreed w/resident/PA/PHARMACY BENEFITS COORDINATOR, discussed with family, reviewed EMR data (avail), discussed with nursing, discussed with case mgmt, reviewed images, amended to note Attending Assessment/Plan: This is a gentleman Pt s/p renal transplant (on immunosupp rx ) with infected toe with osteo with recent toe amputation and s/p surg and had ecoli and staph osteo, pt was dcd recently and now here with fever and infected toe which is weeping, and pt now has infected foot with shira and fever other issues CKD s/p renal transplant On immunosupp rx, with mild leukopenia DM insulin requiring PVD Pafib on eliquis Depression Vital Signs & Intake/Output Vital Signs & Intake/Output Vital Signs Date Time Temp Pulse Resp B/P B/P Pulse O2 O2 Flow FiO2 Mean Ox Delivery Rate 09/22 1058 101.3 80 20 138/58 94 Room Air 09/22 1011 101.0 09/22 0827 101.4 09/22 0824 101.4 87 20 143/60 95 Room Air 09/22 0625 96 Room Air 09/22 0550 100.1 72 18 130/50 96 Room Air Allergies Coded Allergies: NO KNOWN ALLERGIES (NONE 09/09/17) Reconcile Medications Alprazolam 0.5 MG TABLET 1 TAB PO DAILY PRN Anxiety (Reported) Amiodarone (Cordarone) 200 MG TAB 0.5 TAB PO DAILY A.fib (Reported) Apixaban (Eliquis) 5 MG TABLET 1 TAB PO BID Blood Thinner (Reported) Aspirin (Ecotrin*) 81 MG TABLET.DR 1 TAB PO DAILY Heart Health (Reported) Atorvastatin Calcium 10 MG TABLET 1 TAB PO DAILY cholesterol (Reported) Bupropion HCl 100 MG TABLET 1 TAB PO DAILY pain (Reported) Calcitriol 0.25 MCG CAPSULE 1 CAP PO DAILY Bone health (Reported) Calcium (Elemental-Fr Calcarb) (Calcium Antacid) 400 MG CALCIUM (1,000 MG) TAB.CHEW 1,000 MG PO TID Supplement (Reported) Cholecalciferol (Vitamin D3) (Vitamin D-3) 2,000 UNIT TABLET 1 TAB PO DAILY Supplement (Reported) Coenzyme Q10 100 MG CAPSULE 1 CAP PO DAILY Supplement (Reported) Escitalopram Oxalate (Lexapro) 20 MG TABLET 1 TAB PO QPM Anxiety (Reported) Fludrocortisone Acetate 0.1 MG TABLET 1 TAB PO DAILY SUPPLEMENT (Reported) Hydroxychloroquine Sulfate 200 MG TABLET 1 TAB PO DAILY . (Reported) Insulin Glargine,Hum.rec.anlog (Lantus Solostar) 100 UNIT/ML (3 ML) INSULN.PEN 25 UNIT SC DAILY AC Blood sugar (Reported) 26 U daily Insulin Lispro (Humalog) 100 UNIT/ML CARTRIDGE 0 SC TIDAC/HS Blood sugar ( Reported) Please take as follow:\ Blood sugar 80-150 mg/dl: none 151-200 mg/dl: 2 U 201-250 mg/dl: 4 U 251-300 mg/dl: 6 U 301-350 mg/dl: 8 U 351-400 mg/dl: 10 U more than 401 mg/dl: 12 U and call Metoprolol Succ XL (Toprol XL) 25 MG TAB 0.5 TAB PO DAILY HEART HEALTH ( Reported) Mycophenolate Mofetil (Cellcept) 250 MG CAPSULE 4 CAP PO BID Immunotherapy ( Reported) Tacrolimus (Envarsus XR) 0.75 MG TAB.ER.24H 2 TAB PO DAILY TRANSPLANT ( Reported) Tacrolimus (Envarsus XR) 1 MG TAB.ER.24H 2 TAB PO DAILY TRANSPLANT (Reported) Vit A,C & E/Lutein/Minerals (Ocuvite With Lutein Tablet) 1,000-60-2 TABLET 1 TAB PO DAILY Supplement (Reported) Past History Travel History Traveled to [place] past 21 day No Medical History Any Pertinent Medical History? 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 No Review of Systems Review of Systems Constitutional: Reports: see HPI, malaise. EENTM: Reports: no symptoms. Respiratory: Reports: no symptoms. Cardiovascular: Reports: no symptoms. GI: Reports: see HPI, abdominal pain, diarrhea, nausea, vomiting. Genitourinary: Reports: no symptoms. Musculoskeletal: Reports: see HPI, joint pain. Skin: Reports: see HPI. Neurological/Psychological: Reports: no symptoms. Hematologic/Endocrine: Reports: no symptoms. Immunologic/Allergic: Reports: no symptoms. General Appearance: well developed/nourished, alert, awake, anxious, mild distress Head: atraumatic, normal appearance Eyes: Bilateral: normal appearance, PERRL, EOMI. Ears, Nose, Throat: normal pharynx, normal ENT inspection, hearing grossly normal Neck: normal inspection, supple, full range of motion, no midline tenderness Respiratory: normal breath sounds, chest non-tender, no respiratory distress, quiet respiration, lungs clear Cardiovascular: normal peripheral pulses, irregularly irregular, norml femoral pulses equa Peripheral Pulses: 4+ carotid (R), 4+ carotid (L) Gastrointestinal: normal bowel sounds, soft, non-tender, no organomegaly Back: normal inspection, normal range of motion, no vertebral tenderness Extremities: no edema, pelvis stable, R foot sutures intact without evidence of discharge or inflammation. Dried blood about stump of 2nd digit. Mild erythema over dorsum of foot patient reports due to dressing friction. black skin Neurologic/Psych: no motor/sensory deficits, awake, alert, oriented x 3, normal mood/affect, supervisor long goods II-XII 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 Lymphatic: no anterior cervical fortunato avf intact IMPRESSION This is a gentleman with s/p renal transplant with infected toe with osteo s/p surg recently with amputation and sub delayed closure who had ecoli and staph was dcd recently off abx as his stump was clean and all his infected tissue had been excised now with * Infected foot with fever in a pt who is immunosupp (recent toe amputation) * SHIRA with CKD s/p renal transplant * On immunosupp rx, with mild leukopenia and hence sig immunosupp * DM insulin requiring * PVD, previous history of stoke, and previous toe amputation * Previous secondary hyperparathyroid * Sig autonomic dysfnction on fludocortisone * Pafib on eliquis pt on full dose eloquis (Dr. Lujan is his vision care associate) (in sinus on amiodarone) * Depression and anxiety * Peripheral neuropathy REC * ID and Podiatry aware * IVF with D5 ns at 60 cc * Avoid long acting insulin * IV abx per ID (ask if abx needed prior to OR) * EKG * Check troponin * Blood cultures * Check mag and phos * CPK * PRob tele if his enzymes are abnormal etc * Keep sugars at 150 or below with sliding scale * Hold plaquanil * COnt immunosupp rx * Ask podiatry if ok to start eloquis * Reduce dose of eloquis to 2.5 bid as he has ckd * Cont metoprolol, statin, amio, antidepressants * Check tsh and free t4 Will follow closely Alka García MD 09/22/17 1701: Resident Review Statement Resident Statement: examined this patient, discussed with industrial engineering intern, agreed with industrial engineering intern, amended to note Other Findings: Patient is a 71-year-old male with a past medical history significant for stroke 8 years ago with no residual neuro deficit, hypertension, hyperlipidemia, A. fib on Eliquis, previous toe amputations, secondary to osteomyelitis, T2 IDDM, right wrist surgery secondary to carpal tunnel syndrome, parathyroid gland surgery previously on dialysis but is now s/p renal transplant 3 years ago and on multiple immunosuppressive medications who comes in with complaints of worsening right lower extremity wound, fever of 101.1 at home and malaise. EKG shows new onset LBBB, trop x 1 neg Problem List 1. Sepsis 2/2 possible infected foot ulcer and osteomyelitis of Rt foot 2. T2 IDDM 3. Afib on eliquis 4. S/P renal transplant for diabetic kidney disease Plan -Admit to Tele -Keep NPO for now; patient is going to the OR for debridement today with Dr. Mendiola; pt cleared for surgery by Dr. Suazo -Hold Eliquis and aspirin for now till cleared by podiatry; possibly restart tomorrow -IV D5 1/2 NS for hydration while NPO -Trend troponins and EKG -Cardiology consult for new EKG changes -ID consult for antibiotic recommendations -Follow up OR cultures -Continue immunosuppresive meds -Insulin SS for blood glucose control and fingersticks TIDAC and HS -Continue his other impt home medications -Follow attending recommendations
--- NOTE | 2017-09-22 14:40 | Cons- Infect Disease ---
General Information and HPI Consulting Request Date of Consult: 09/22/17 Requested By: Lakeisha RANKIN,Gilbert Mark Reason for Consult: Recurrent rght foot infection Source of Information: patient, old records History of Present Illness: This is a 71-year-old man with a history of diabetes, end-stage renal disease, on dialysis in the past via a left forearm fistula, status post renal transplant 3 years prior to admission, maintained on CellCept and Tacrolimus, hypertension, hyperlipidemia, atrial fibrillation, maintained on Eliquis, status post CVA 8 years prior to admission with no residual deficit, status post amputation of the left third, right third and partial right fourth toes, hospitalized 2 weeks prior to admission with an osteomyelitis of the distal phalanx of the right great toe, status post partial amputation, with the skin, soft tissue and bone margins clean, treated with Bactrim for a possible residual soft tissue infection based on positive OR cultures for MRSA, Escherichia coli and Citrobacter, which was discontinued after 2 days because of an increase in his creatinine from 1.2 to 1.5, discharged off antibiotics with a creatinine of 1.4, with a follow-up creatinine 2 days after discharge of 1.7, admitted today with several days of weakness, anorexia, fevers and chills. On admission he was febrile to 101.4. Laboratory data revealed a white blood cell count of 3000, with 70 segs and 6 bands, ESR 72, BUN/creatinine 47 and 1.8, glucose 227, with normal liver enzymes, INR 2.56. He is apparently scheduled for the OR later today. Allergies/Medications Allergies: Coded Allergies: NO KNOWN ALLERGIES (NONE 09/09/17) Home Med List: Alprazolam 0.5 MG TABLET 1 TAB PO DAILY PRN Anxiety (Reported) Amiodarone (Cordarone) 200 MG TAB 0.5 TAB PO DAILY A.fib (Reported) Apixaban (Eliquis) 5 MG TABLET 1 TAB PO BID Blood Thinner (Reported) Aspirin (Ecotrin*) 81 MG TABLET.DR 1 TAB PO DAILY Heart Health (Reported) Atorvastatin Calcium 10 MG TABLET 1 TAB PO DAILY cholesterol (Reported) Bupropion HCl 100 MG TABLET 1 TAB PO DAILY pain (Reported) Calcitriol 0.25 MCG CAPSULE 1 CAP PO DAILY Bone health (Reported) Calcium (Elemental-Fr Calcarb) (Calcium Antacid) 400 MG CALCIUM (1,000 MG) TAB.CHEW 1,000 MG PO TID Supplement (Reported) Cholecalciferol (Vitamin D3) (Vitamin D-3) 2,000 UNIT TABLET 1 TAB PO DAILY Supplement (Reported) Coenzyme Q10 100 MG CAPSULE 1 CAP PO DAILY Supplement (Reported) Escitalopram Oxalate (Lexapro) 20 MG TABLET 1 TAB PO QPM Anxiety (Reported) Fludrocortisone Acetate 0.1 MG TABLET 1 TAB PO DAILY SUPPLEMENT (Reported) Hydroxychloroquine Sulfate 200 MG TABLET 1 TAB PO DAILY . (Reported) Insulin Glargine,Hum.rec.anlog (Lantus Solostar) 100 UNIT/ML (3 ML) INSULN.PEN 25 UNIT SC DAILY AC Blood sugar (Reported) 26 U daily Insulin Lispro (Humalog) 100 UNIT/ML CARTRIDGE 0 SC TIDAC/HS Blood sugar ( Reported) Please take as follow:\ Blood sugar 80-150 mg/dl: none 151-200 mg/dl: 2 U 201-250 mg/dl: 4 U 251-300 mg/dl: 6 U 301-350 mg/dl: 8 U 351-400 mg/dl: 10 U more than 401 mg/dl: 12 U and call Metoprolol Succ XL (Toprol XL) 25 MG TAB 0.5 TAB PO DAILY HEART HEALTH ( Reported) Mycophenolate Mofetil (Cellcept) 250 MG CAPSULE 4 CAP PO BID Immunotherapy ( Reported) Tacrolimus (Envarsus XR) 0.75 MG TAB.ER.24H 2 TAB PO DAILY TRANSPLANT ( Reported) Tacrolimus (Envarsus XR) 1 MG TAB.ER.24H 2 TAB PO DAILY TRANSPLANT (Reported) Vit A,C & E/Lutein/Minerals (Ocuvite With Lutein Tablet) 1,000-60-2 TABLET 1 TAB PO DAILY Supplement (Reported) Past History Travel History Traveled to [place] past 21 day No Medical History Neurological: STROKE EENT: NONE, glaucoma Cardiovascular: AFIB, hypertension, hyperlipidemia, AFIB (ON COUMADIN) Respiratory: NONE Gastrointestinal: NONE Hepatic: NONE Renal: ESRD on HD (in the past), renal transplant Musculoskeletal: fracture, R ARM FRACTURE Psychiatric: NONE Endocrine: IDDM Blood Disorders: NONE 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 History of MRSA: Yes History of VRE: No History of CDIFF: No Surgical History Surgical History: RENAL TRANSPLANT right and left toe amputations secondary to IDDM Review of Systems Review of Systems All Other Systems: Reviewed and Negative Exam & Diagnostic Data Last 24 Hrs of Vital Signs/I&O Vital Signs Date Time Temp Pulse Resp B/P B/P Pulse O2 O2 Flow FiO2 Mean Ox Delivery Rate 09/22 1334 101.1 87 20 175/74 91 Room Air 09/22 1058 101.3 80 20 138/58 94 Room Air 09/22 1011 101.0 09/22 0827 101.4 09/22 0824 101.4 87 20 143/60 95 Room Air 09/22 0625 96 Room Air 09/22 0550 100.1 72 18 130/50 96 Room Air Intake & Output 09/22 1600 09/22 0800 09/22 0000 Intake Total 1000 Output Total Balance 1000 Intake, IV 1000 Patient 195 lb Weight Weight Reported by Patient Measurement Method Physical Exam Other Physical Findings: Afebrile. He is awake and alert in no acute distress. Skin reveals no rash. HEENT negative. Neck is supple with no adenopathy. Lungs are clear. Heart regular rhythm with no murmur. Abdomen is soft, nontender with positive bowel sounds. Back no CVA tenderness. Extremities right foot with a necrotic wound, with erythema and edema, with foul-smelling drainage; decreased pulses bilaterally; status post amputation of the left third, right great, third and partial fourth toes. Neuro is without focality. Last 24 Hours of Lab Results: Laboratory Tests 09/22 0710 Chemistry Sodium (137 - 145 mmol/L) 137 Potassium (3.5 - 5.1 mmol/L) 4.4 Chloride (98 - 107 mmol/L) 100 Carbon Dioxide (22 - 30 mmol/L) 22 Anion Gap (5 - 16) 15 BUN (9 - 20 mg/dL) 47 H Creatinine (0.7 - 1.2 mg/dL) 1.8 H Estimated GFR (>60 ml/min) 37 L BUN/Creatinine Ratio (7 - 25 %) 26.1 H Glucose (65 - 99 mg/dL) 227 H Calcium (8.4 - 10.2 mg/dL) 7.8 L Total Bilirubin (0.2 - 1.3 mg/dL) 0.8 AST (17 - 59 U/L) 19 ALT (21 - 72 U/L) 22 Alkaline Phosphatase (< 127 U/L) 77 C-Reactive Prot, Quant (<1.0 mg/dL) > 9.0 H C-React Prot High Sens (1.0 - 3.0 mg/L) > 15.0 H Total Protein (6.3 - 8.2 g/dL) 5.7 L Albumin (3.5 - 5.0 g/dL) 3.3 L Globulin (1.9 - 4.2 gm/dL) 2.4 Albumin/Globulin Ratio (1.1 - 2.2 %) 1.4 Lipase (23 - 300 U/L) < 10 L Coagulation PT (9.4 - 12.5 SEC) 28.2 H INR (0.90 - 1.17) 2.56 H APTT (25 - 37 SEC) 29 Hematology CBC w Diff MAN DIFF ORDERED WBC (4.8 - 10.8 /CUMM) 3.2 L RBC (4.70 - 6.10 /CUMM) 3.57 L Hgb (14.0 - 18.0 G/DL) 10.0 L Hct (42 - 52 %) 30.3 L MCV (80.0 - 94.0 FL) 85.0 MCH (27.0 - 31.0 PG) 28.1 MCHC (33.0 - 37.0 G/DL) 33.0 RDW (11.5 - 14.5 %) 13.9 Plt Count (130 - 400 /CUMM) 250 MPV (7.4 - 10.4 FL) 7.9 Gran % (42.2 - 75.2 %) 80.5 H Lymphocytes % (20.5 - 51.1 %) 5.8 L Monocytes % (1.7 - 9.3 %) 13.3 H Eosinophils % (0 - 5 %) 0.4 Basophils % (0.0 - 2.0 %) 0 Absolute Granulocytes (1.4 - 6.5 /CUMM) 2.6 Segmented Neutrophils (42.2 - 75.2 %) 70 Band Neutrophils (0.0 - 5.0 %) 6 H Absolute Lymphocytes (1.2 - 3.4 /CUMM) 0.2 L Lymphocytes (20.5 - 51.1 %) 5 L Monocytes (1.7 - 9.3 %) 17 H Absolute Monocytes (0.10 - 0.60 /CUMM) 0.4 Absolute Eosinophils (0.0 - 0.7 /CUMM) 0 Basophils (0.0 - 2.0 %) 2 Absolute Basophils (0.0 - 0.2 /CUMM) 0 Platelet Estimate (ADEQUATE) ADEQUATE Poikilocytosis 2+ Anisocytosis 1+ Ovalocytes 1+ ESR Westergren (0 - 10 MM) 72 H Last 24 Hours of Joel Results: No cultures obtained Assessment/Plan Assessment/Plan Impression: This is a 71-year-old man with a history of diabetes, end-stage renal disease, status post renal transplant 3 years prior to admission, maintained on CellCept and Tacrolimus, hospitalized 2 weeks prior to admission with an osteomyelitis of the distal phalanx of the right great toe, status post partial amputation, with no residual osteomyelitis felt to be present, treated with Bactrim for a possible residual soft tissue infection, with discontinuation after 2 days because of an increase in his creatinine, admitted today with several days of weakness, anorexia, fevers and chills, found to be febrile with a bandemia and with a necrotic, foul-smelling wound on the right foot. His right foot infection has clearly progressed and he will require further debridement, which is scheduled for later today. He presumably has osteomyelitis and it is likely that he will require a prolonged course of antibiotics postop for residual osteomyelitis. His previous OR culture grew several organisms, including MRSA, Escherichia coli and Citrobacter, and he can be covered empirically for these organisms pending repeat OR cultures. I am concerned about his vascular status and he will require further evaluation while he is here. His increased creatinine is of concern, status post renal transplant, and may be secondary to sepsis or, possibly, medications, though he has no rash or eosinophilia to suggest interstitial nephritis. Suggestion: 1. Obtain blood cultures 2 2. Await debridement in the OR later today 3. Renal evaluation 4. Vascular surgery evaluation 5. Vancomycin 1,25 g IV 1 and obtain a random Vancomycin level in the a.m. pending OR cultures 6. Begin Ceftriaxone 1 g IV every 24 hours and Flagyl 500 mg IV every 8 hours pending OR cultures Consult Acknowledgment - Thank you for your consult request.
--- NOTE | 2017-09-22 19:17 | Operative Report ---
Operative/Inv Procedure Report Surgery Date: 09/22/17 Name of Procedure: 1 open incision and drainage deep to the D fashion with exposure of the extensor and flexor tendon and tendon sheath multiple sites right foot 2 revisional, partial first ray resection right foot 3 intraoperative administration of ankle block anesthesia 4 excisional debridement Pre-Operative Diagnosis: 1 open, necrotic wound right foot 2 suspected osteomyelitis right foot 3 peripheral arterial disease Post-Operative Diagnosis: The same Estimated Blood Loss: less than 50ml Surgeon/Director Regulatory Compliance: PRASHANT MORGAN DPM Anesthesia: moderate sedation, block Operative/Procedure Note Note: After obtaining informed consent the patient was brought to the operating room and placed on the operating table in the supine position. The patient isn't securely fastened to the operating table utilizing safety belt. After administration of IV sedation, 10 mL of 0.5% Marcaine plain was obtained about the patient's right ankle. Right foot and ankle then scrubbed prepped and draped in usual aseptic manner. Digitorectal right foot, where a necrotic flap was identified with necrosis encompassing the soft tissues and a 5 cm margin. A 15 blade visualized sharply revised skin margins. Dissection was then carried down deep to the deep fascia with exposure of the extensor and flexor tendon and tendon sheath sites, both proximally and distally. All necrotic nonviable infected affected tissue sharply evacuated wound bed. Dissection and continued down to the distal part of the metatarsal shaft with the periosteum was incised reflected. Sagittal bone saw was utilized performed through and through osteotomy. The distal osseous segment was freed and passed from the operative field. Specimen was sent for both microbiologic and pathologic inspection. The open wound was then irrigated with 3 L of normal sterile saline infusion 50,000 units of bacitracin. The foot was then redraped and the surgeon's top gloves were changed clean gloves. Any bleeding vessels identified were cauterized or ligated as encountered. Nipple was then packed with iodoform and 3-0 nylon retention sutures were placed followed by 4 x 4's Kerlix and Qasim wrap. The patient is noted tolerate both procedure and anesthesia well and the patient was transported from the operating room to recovery with vital signs stable.
[2017-09-22 20:40] VITALS: BP 130/68
[2017-09-22 22:56] VITALS: BP 130/90
--- NOTE | 2017-09-22 23:25 | Cons- Cardiology ---
General Information and HPI Consulting Request Date of Consult: 09/22/17 Requested By: Lakeisha RANKIN,Gilbert Mark Reason for Consult: Abnormal EKG History of Present Illness: The patient is a 71-year-old male with history of end-stage renal disease status post renal transplant, paroxysmal atrial fibrillation, hypertension, CVA, and diabetes mellitus. He is status post recent admission for osteomyelitis with amputation of multiple toes. He was discharged from on . He now presents with complaint of fever and malaise. He was noted to have a maximal temperature of 101.1. He complains of poor appetite, nausea, and vomiting. He has had no chest pain. No shortness of breath. No syncope. No orthopnea. No lightheadedness or dizziness. I am consulted because of change in EKG. Allergies/Medications Allergies: Coded Allergies: NO KNOWN ALLERGIES (NONE 09/09/17) Home Med List: Alprazolam 0.5 MG TABLET 1 TAB PO DAILY PRN Anxiety (Reported) Amiodarone (Cordarone) 200 MG TAB 0.5 TAB PO DAILY A.fib (Reported) Apixaban (Eliquis) 5 MG TABLET 1 TAB PO BID Blood Thinner (Reported) Aspirin (Ecotrin*) 81 MG TABLET.DR 1 TAB PO DAILY Heart Health (Reported) Atorvastatin Calcium 10 MG TABLET 1 TAB PO DAILY cholesterol (Reported) Bupropion HCl 100 MG TABLET 1 TAB PO DAILY pain (Reported) Calcitriol 0.25 MCG CAPSULE 1 CAP PO DAILY Bone health (Reported) Calcium (Elemental-Fr Calcarb) (Calcium Antacid) 400 MG CALCIUM (1,000 MG) TAB.CHEW 1,000 MG PO TID Supplement (Reported) Cholecalciferol (Vitamin D3) (Vitamin D-3) 2,000 UNIT TABLET 1 TAB PO DAILY Supplement (Reported) Coenzyme Q10 100 MG CAPSULE 1 CAP PO DAILY Supplement (Reported) Escitalopram Oxalate (Lexapro) 20 MG TABLET 1 TAB PO QPM Anxiety (Reported) Fludrocortisone Acetate 0.1 MG TABLET 1 TAB PO DAILY SUPPLEMENT (Reported) Hydroxychloroquine Sulfate 200 MG TABLET 1 TAB PO DAILY . (Reported) Insulin Glargine,Hum.rec.anlog (Lantus Solostar) 100 UNIT/ML (3 ML) INSULN.PEN 25 UNIT SC DAILY AC Blood sugar (Reported) 26 U daily Insulin Lispro (Humalog) 100 UNIT/ML CARTRIDGE 0 SC TIDAC/HS Blood sugar ( Reported) Please take as follow:\ Blood sugar 80-150 mg/dl: none 151-200 mg/dl: 2 U 201-250 mg/dl: 4 U 251-300 mg/dl: 6 U 301-350 mg/dl: 8 U 351-400 mg/dl: 10 U more than 401 mg/dl: 12 U and call Metoprolol Succ XL (Toprol XL) 25 MG TAB 0.5 TAB PO DAILY HEART HEALTH ( Reported) Mycophenolate Mofetil (Cellcept) 250 MG CAPSULE 4 CAP PO BID Immunotherapy ( Reported) Tacrolimus (Envarsus XR) 0.75 MG TAB.ER.24H 2 TAB PO DAILY TRANSPLANT ( Reported) Vit A,C & E/Lutein/Minerals (Ocuvite With Lutein Tablet) 1,000-60-2 TABLET 1 TAB PO DAILY Supplement (Reported) Current Medications: Current Medications Sig/Ira Start time Last Medication Dose Route Stop Time Status Admin Acetaminophen 1,000 MG ONCE ONE 09/22 1900 DC N/A 1 UNIT IV 09/22 1914 Acetaminophen 1,000 MG ONCE ONE 09/22 1715 DC 09/22 N/A 1 UNIT IV 09/22 1729 1736 Acetaminophen 650 MG Q6P PRN 09/22 1600 AC PO Acetaminophen 0 .STK-MED ONE 09/22 0832 DC IV Acetaminophen 1,000 MG ONCE ONE 09/22 0830 DC 09/22 IV 09/22 0831 0827 Al Hydroxide/Mg 30 ML Q4-6 PRN PRN 09/22 1645 AC Hydroxide PO Amiodarone HCl 100 MG DAILY 09/23 1000 AC PO Apixaban 2.5 MG BID 09/23 2200 CAN PO Apixaban 5 MG BID 09/22 2200 DC PO Apixaban 2.5 MG BID 09/22 2200 AC 09/22 PO 2159 Atorvastatin Calcium 10 MG 1700 09/23 1700 AC PO Bupropion HCl 100 MG DAILY 09/23 1000 AC PO Calcium/Vitamin D 500 MG DAILY 09/22 1929 AC 09/22 PO 2034 Ceftriaxone Sodium 0 .STK-MED ONE 09/22 1525 DC .ROUTE Ceftriaxone Sodium 1,000 MG Q24H 09/22 1506 AC 09/22 IV 1523 Dextrose/Sodium 1,000 ML ONCE ONE 09/22 1430 AC 09/22 Chloride IV 09/23 0709 1441 Dextrose/Sodium 1,000 ML Q10H 09/22 1415 DC Chloride IV Dicyclomine HCl 20 MG 4 TIMES/DAY 09/22 1800 AC 09/22 PO 2158 Escitalopram Oxalate 10 MG DAILY 09/23 1000 AC PO Insulin Aspart 0 TIDAC 09/23 0800 DC SC Insulin Aspart 0 TIDAC/HS 09/23 0800 AC 09/22 SC 2157 Insulin Aspart 0 TIDAC 09/22 2115 DC SC Insulin Detemir 12.5 UNITS BID 09/22 2200 CAN SC Insulin Human Regular 0 Q6 09/22 1414 DC 09/22 SC 1441 Magnesium Oxide 400 MG BID 09/22 2200 AC 09/22 PO 09/23 1001 2159 Metoprolol Succinate 12.5 MG DAILY 09/23 1000 AC PO Metronidazole 500 MG IQ8 09/22 1600 AC 09/22 N/A 1 UNIT IV 1736 Morphine Sulfate 2 MG Q4P PRN 09/22 1900 AC IV Mycophenolate Mofetil 1,000 MG BID 09/22 2200 AC 09/22 PO 2158 Patient Own 2 UNIT 0600 09/23 0600 AC Medication PO Sodium Chloride 1,000 ML BOLUS ONE 09/22 0700 DC 09/22 IV 09/22 0759 0718 Vancomycin HCl 1,250 MG ONCE ONE 09/22 1515 DC 09/22 Dextrose/Water 250 ML IV 09/22 1614 2040 Review of Systems Review of Systems: No rash. No tremor. No melena. No hemoptysis. All other systems were reviewed, and were noted to be negative. 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 Surgical History Surgical History: RENAL TRANSPLANT right and left toe amputations secondary to IDDM Family History Relations & Conditions If Any: MOTHER FH: diabetes mellitus Myasthenia gravis FATHER FH myocardial infarction male first degree age known FH: diabetes mellitus Relation not specified for: *No pertinent family history Psychosocial History Smoking Status: Never Smoked Exam & Diagnostic Data Vital Signs and I&O Vital Signs Date Time Temp Pulse Resp B/P B/P Pulse O2 O2 Flow FiO2 Mean Ox Delivery Rate 09/226 99.0 73 24 130/90 92 09/22 2205 98.9 09/22 2040 98.9 67 24 130/68 93 09/22 1736 103.1 09/22 1657 94 Room Air 09/22 1529 100.5 88 20 195/84 96 Room Air 09/22 1334 101.1 87 20 175/74 91 Room Air 09/22 1058 101.3 80 20 138/58 94 Room Air 09/22 1011 101.0 09/22 0827 101.4 09/22 0824 101.4 87 20 143/60 95 Room Air 09/22 0625 96 Room Air 09/22 0550 100.1 72 18 130/50 96 Room Air Intake & Output 09/22 1600 09/22 0800 09/22 0000 09/21 1600 09/21 0800 09/21 0000 Intake Total 1000 Output Total Balance 1000 Intake, IV 1000 Patient 195 lb Weight Weight Reported by Patient Measurement Method Physical Exam: Gen: The patient is in no acute distress HEENT: Normal nose, ears, and oropharynx. Pupils equal bilaterally. Conjunctiva normal. Neck: Supple with no JVD, no masses, and no thyromegaly Lungs: Clear to auscultation with normal respiratory effort Heart: RRR, S1, S2, no murmurs. No peripheral edema, 2+ pulses in the lower extremities bilaterally Abdomen: Soft, nontender, no masses. No hepatomegaly. No splenomegaly Extremities: No clubbing or cyanosis. Normal muscle strength in the upper and lower extremities Skin: Normal skin turgor with right lower extremity dressing in place. Neuro: Cranial nerves intact. Sensation intact Psych: Alert and oriented x 3 with appropriate affect Labs/Joel Results: Laboratory Tests 09/22 09/22 2038 0710 Chemistry Sodium (137 - 145 mmol/L) 137 Potassium (3.5 - 5.1 mmol/L) 4.4 Chloride (98 - 107 mmol/L) 100 Carbon Dioxide (22 - 30 mmol/L) 22 Anion Gap (5 - 16) 15 BUN (9 - 20 mg/dL) 47 H Creatinine (0.7 - 1.2 mg/dL) 1.8 H Estimated GFR (>60 ml/min) 37 L BUN/Creatinine Ratio (7 - 25 %) 26.1 H Glucose (65 - 99 mg/dL) 227 H Calcium (8.4 - 10.2 mg/dL) 7.8 L Phosphorus (2.5 - 4.5 mg/dL) 3.3 Magnesium (1.6 - 2.3 mg/dL) 1.5 L Total Bilirubin (0.2 - 1.3 mg/dL) 0.8 AST (17 - 59 U/L) 19 ALT (21 - 72 U/L) 22 Alkaline Phosphatase (< 127 U/L) 77 Creatine Kinase (55 - 170 U/L) 167 Troponin I (<0.11 ng/ml) 0.18 *H 0.04 C-Reactive Prot, Quant (<1.0 mg/dL) > 9.0 H C-React Prot High Sens (1.0 - 3.0 mg/L) > 15.0 H Total Protein (6.3 - 8.2 g/dL) 5.7 L Albumin (3.5 - 5.0 g/dL) 3.3 L Globulin (1.9 - 4.2 gm/dL) 2.4 Albumin/Globulin Ratio (1.1 - 2.2 %) 1.4 Lipase (23 - 300 U/L) < 10 L TSH (0.270 - 4.200 uIU/mL) 1.380 Free T4 (0.78 - 2.44 ng/dL) 1.95 PTH Intact (18.4 - 80.1 pg/ML) 23.1 Coagulation PT (9.4 - 12.5 SEC) 28.2 H INR (0.90 - 1.17) 2.56 H APTT (25 - 37 SEC) 29 Hematology CBC w Diff MAN DIFF ORDERED WBC (4.8 - 10.8 /CUMM) 3.2 L RBC (4.70 - 6.10 /CUMM) 3.57 L Hgb (14.0 - 18.0 G/DL) 10.0 L Hct (42 - 52 %) 30.3 L MCV (80.0 - 94.0 FL) 85.0 MCH (27.0 - 31.0 PG) 28.1 MCHC (33.0 - 37.0 G/DL) 33.0 RDW (11.5 - 14.5 %) 13.9 Plt Count (130 - 400 /CUMM) 250 MPV (7.4 - 10.4 FL) 7.9 Gran % (42.2 - 75.2 %) 80.5 H Lymphocytes % (20.5 - 51.1 %) 5.8 L Monocytes % (1.7 - 9.3 %) 13.3 H Eosinophils % (0 - 5 %) 0.4 Basophils % (0.0 - 2.0 %) 0 Absolute Granulocytes (1.4 - 6.5 /CUMM) 2.6 Segmented Neutrophils (42.2 - 75.2 %) 70 Band Neutrophils (0.0 - 5.0 %) 6 H Absolute Lymphocytes (1.2 - 3.4 /CUMM) 0.2 L Lymphocytes (20.5 - 51.1 %) 5 L Monocytes (1.7 - 9.3 %) 17 H Absolute Monocytes (0.10 - 0.60 /CUMM) 0.4 Absolute Eosinophils (0.0 - 0.7 /CUMM) 0 Basophils (0.0 - 2.0 %) 2 Absolute Basophils (0.0 - 0.2 /CUMM) 0 Platelet Estimate (ADEQUATE) ADEQUATE Poikilocytosis 2+ Anisocytosis 1+ Ovalocytes 1+ ESR Westergren (0 - 10 MM) 72 H Diagnostic Data EKG Results EKG tracings independently reviewed. EKG today reveals NSR at 88 with nonspecific IVCD. Compared to prior EKG there is slightly inveased QRS duration Other Results MRI of the right foot: 1. Skin ulcer/defect at the distal end of the great toe which appears to extend down to the surface of the distal tuft of the distal phalanx. Diffuse intense bone marrow edema in the distal phalanx suspicious for osteomyelitis. 2. 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 3. Diffuse fatty atrophy and edema involving the visualized foot muscles which is a nonspecific finding but could be secondary to denervation injury. CT Chest 11/29/15: 1. Coronary artery atherosclerosis and cardiomegaly without pulmonary edema or pleural effusion. 2. Chronic finding of a small pericardial effusion. 3. Old granulomatous disease, and findings include a stable, smoothly marginated pleural-based nodule of the distal right major fissure. 4. No interval development of pulmonary mass or lymphadenopathy. Echocardiogram: 1. This was a technically difficult study due to the patient's body habitus. 2. Mild to moderate aortic sclerosis is present in a tricuspis aortic valve with no evidence of valvular stenosis or insufficiency. 3. Mild thickening and calcification of the mitral leaflets is present with mild anular calcification and mild mitral insufficiency with moderate left atrial dilatation. 4. A small posterior pericardial effusion is present. 5. The left ventricular chamber size is normal with concentric hypertrophy that is at least moderate in severity. The ejection fraction is normal with no visible resting wall motion abnormalities. Mild diastolic dysfunction is present. 6. The right heart structures were not well assessed. Minimal to mild tricuspid insufficiency is present. The RV systolic pressure was not well assessed. Assessment/Plan Assessment/Plan Assessment: 1. Status post renal transplant 2. Paroxysmal atrial fibrillation, anticoagulated on Eliquis. Currently in sinus rhythm 3. Osteomyelitis 4. Minor EKG changes compared to prior EKG. No cardiac symptoms, and no evidence of ischemia 5. Mild troponin elevation, likely secondary to infection Plan: * Continue current cardiac medications. * Echocardiogram. * Repeat troponin in the morning * Repeat EKG in the morning Consult Acknowledgment - Thank you for your consult request.
[2017-09-23 06:23] VITALS: BP 120/67
[2017-09-23 08:11] LABS: ABSOLUTE BASOPHIL COUNT 0 /CUMM (0.0-0.2); ABSOLUTE EOSINOPHIL COUNT 0.1 /CUMM (0.0-0.7); ABSOLUTE GRANULOCYTE CT 1.7 /CUMM (1.4-6.5); ABSOLUTE LYMPH COUNT 0.2 /CUMM (1.2-3.4); ABSOLUTE MONOCYTE COUNT 0.5 /CUMM (0.10-0.60); EOSINOPHIL % 3.4 % (0-5); MEAN CORPUSCULAR HGB CONC 33.1 G/DL (33.0-37.0); MEAN CORPUSCULAR VOLUME 84.7 FL (80.0-94.0); MEAN PLATELET VOLUME 8.3 FL (7.4-10.4); PLATELET COUNT 225 /CUMM (130-400); RBC DISTRIBUTION WIDTH 13.9 % (11.5-14.5); RED BLOOD CELL CT 3.31 /CUMM (4.70-6.10); WHITE BLOOD CELL COUNT 2.6 /CUMM (4.8-10.8)
--- NOTE | 2017-09-23 08:51 | PN- Cardiology ---
Johan RANKIN,Irineo 09/23/17 0851: Subjective Subjective: Seen and examined at bedside. He offer no complaints of chest pain/palpitation or shortness of breath. He has been started on abx per medical/id team for his low extremity cellulits/osteo. Objective Vital Signs and I&Os Vital Signs Date Time Temp Pulse Resp B/P B/P Pulse O2 O2 Flow FiO2 Mean Ox Delivery Rate 09/23 1454 100.2 09/23 1441 100.2 75 20 134/62 93 Room Air 09/23 1041 78 120/67 09/23 1040 78 120/67 09/23 0623 98.1 78 20 120/67 95 09/23 0100 101.3 09/22 2256 99.0 73 24 130/90 92 09/22 2040 98.9 67 24 130/68 93 09/22 1736 103.1 09/22 1657 94 Room Air 09/22 1529 100.5 88 20 195/84 96 Room Air Intake & Output 09/23 1600 09/23 0800 09/23 0000 09/22 1600 09/22 0800 09/22 0000 Intake Total 5386 102 8658 Output Total 100 250 Balance 1020 -150 1000 Intake, IV 120 1000 Intake, Oral 1000 100 Number 1 Bowel Movements Output, Urine 100 250 Patient 88.224 kg 88.451 kg Weight Weight Reported by Patient Reported by Patient Measurement Method Physical Exam: General Appearance Alert, Oriented X3, Cooperative, No Acute Distress Skin Temp/Moisture Exam: Warm/Dry Cardiovascular Regular Rate, Normal S1, Normal S2 Lungs Clear to Auscultation, Normal Air Movement Abdomen Normal Bowel Sounds, Soft, No Tenderness Neurological Normal Speech, decreased sensation on the feet bilaterally Extremities R foot with black, necrotic tissue around the surgical site, nontender to palpation, poor pedal pulses, fistula on the L arm with palpable thrill Current Medications: Current Medications Sig/Ira Start time Last Medication Dose Route Stop Time Status Admin Acetaminophen 1,000 MG ONCE ONE 09/23 0145 DC N/A 1 UNIT IV 09/23 0159 Acetaminophen 1,000 MG ONCE ONE 09/22 1900 DC 09/23 N/A 1 UNIT IV 09/22 1914 0100 Acetaminophen 1,000 MG ONCE ONE 09/22 1715 DC 09/22 N/A 1 UNIT IV 09/22 1729 1736 Acetaminophen 650 MG Q6P PRN 09/22 1600 AC 09/23 PO 1454 Al Hydroxide/Mg 30 ML Q4-6 PRN PRN 09/22 1645 AC Hydroxide PO Amiodarone HCl 100 MG DAILY 09/23 1000 AC 09/23 PO 1040 Apixaban 2.5 MG BID 09/23 2200 CAN PO Apixaban 5 MG BID 09/22 2200 DC PO Apixaban 2.5 MG BID 09/22 2200 AC 09/23 PO 0942 Atorvastatin Calcium 10 MG 1700 09/23 1700 AC PO Bupropion HCl 100 MG DAILY 09/23 1000 AC 09/23 PO 0942 Calcium/Vitamin D 500 MG DAILY 09/22 1929 AC 09/23 PO 0942 Ceftriaxone Sodium 1,000 MG Q24H 09/22 1506 AC 09/23 IV 1412 Dextrose/Sodium 1,000 ML ONCE ONE 09/22 1430 DC 09/22 Chloride IV 09/23 0709 1441 Dicyclomine HCl 20 MG 4 TIMES/DAY 09/22 1800 AC 09/23 PO 1412 Escitalopram Oxalate 10 MG DAILY 09/23 1000 AC 09/23 PO 0942 Insulin Aspart 0 TIDAC 09/23 0800 DC SC Insulin Aspart 0 TIDAC/HS 09/23 0800 AC 09/23 SC 1244 Insulin Aspart 0 TIDAC 09/22 2115 DC SC Insulin Detemir 12.5 UNITS BID 09/22 220 CAN SC Insulin Human Regular 0 Q6 09/22 1414 DC 09/22 SC 1441 Magnesium Oxide 400 MG BID 09/22 2200 DC 09/23 PO 09/23 1001 0942 Metoprolol Succinate 12.5 MG DAILY 09/23 1000 AC 09/23 PO 1041 Metronidazole 500 MG IQ8 09/22 1600 AC 09/23 N/A 1 UNIT IV 0839 Midazolam HCl 2 MG .STK-MED ONE 09/22 1824 DC IM 09/22 1825 Morphine Sulfate 2 MG Q4P PRN 09/22 1900 AC 09/23 IV 1453 Mycophenolate Mofetil 1,000 MG BID 09/22 2200 AC 09/23 PO 0942 Non-Formulary 0 SEE ADMIN CRITERIA 09/23 1315 CAN Medication ANY Patient Own 2 UNIT 0600 09/23 0600 DC 09/23 Medication PO 0629 Tacrolimus 2 MG 0600 09/24 0600 AC PO Tacrolimus 1.5 MG 0600 09/24 0600 AC PO Tacrolimus 2 MG ONCE ONE 09/23 1700 AC PO 09/23 1701 Tramadol HCl 25 MG ONCE ONE 09/23 0645 DC PO 09/23 0646 Vancomycin HCl 1,250 MG ONCE ONE 09/23 0815 DC 09/23 Dextrose/Water 250 ML IV 09/23 0914 0945 Vancomycin HCl 1,250 MG ONCE ONE 09/22 1515 DC 09/22 Dextrose/Water 250 ML IV 09/22 1614 2040 Results Last 48 Hrs of Labs/Mics: Laboratory Tests 09/23/17 0645: Anion Gap 15, Estimated GFR 40 L, BUN/Creatinine Ratio 25.3 H, CBC w Diff MAN DIFF ORDERED, RBC 3.31 L, MCV 84.7, MCH 28.0, MCHC 33.1, RDW 13.9, MPV 8.3, Gran % 68.0, Lymphocytes % 6.9 L, Monocytes % 20.7 H, Eosinophils % 3.4, Basophils % 1.0, Absolute Granulocytes 1.7, Segmented Neutrophils 58, Band Neutrophils 6 H, Absolute Lymphocytes 0.2 L, Lymphocytes 12 L, Monocytes 23 H, Absolute Monocytes 0.5, Absolute Eosinophils 0.1, Absolute Basophils 0, Metamyelocytes 1, Platelet Estimate VERIFIED BY SMEAR, Normocytic RBCs VERIFIED, Normochromic RBCs VERIFIED, Random Vancomycin 7.8 09/23/17 0300: Troponin I 0.13 *H 09/22/17 2038: Troponin I 0.18 *H 09/22/17 0710: Anion Gap 15, Estimated GFR 37 L, BUN/Creatinine Ratio 26.1 H, Glucose 227 H, Calcium 7.8 L, Phosphorus 3.3, Magnesium 1.5 L, Total Bilirubin 0.8, AST 19, ALT 22, Alkaline Phosphatase 77, Creatine Kinase 167, Troponin I 0.04, C- Reactive Prot, Quant > 9.0 H, C-React Prot High Sens > 15.0 H, Total Protein 5.7 L, Albumin 3.3 L, Globulin 2.4, Albumin/Globulin Ratio 1.4, Lipase < 10 L , TSH 1.380, Free T4 1.95, PTH Intact 23.1, PT 28.2 H, INR 2.56 H, APTT 29, CBC w Diff MAN DIFF ORDERED, RBC 3.57 L, MCV 85.0, MCH 28.1, MCHC 33.0, RDW 13.9, MPV 7.9, Gran % 80.5 H, Lymphocytes % 5.8 L, Monocytes % 13.3 H, Eosinophils % 0.4, Basophils % 0, Absolute Granulocytes 2.6, Segmented Neutrophils 70, Band Neutrophils 6 H, Absolute Lymphocytes 0.2 L, Lymphocytes 5 L, Monocytes 17 H, Absolute Monocytes 0.4, Absolute Eosinophils 0, Basophils 2, Absolute Basophils 0, Platelet Estimate ADEQUATE, Poikilocytosis 2+, Anisocytosis 1+, Ovalocytes 1+, ESR Westergren 72 H Assessment/Plan Assessment/Plan 1. Status post renal transplant 2. Hx of Paroxysmal atrial fibrillation, on Eliquis. Currently in sinus rhythm 3. Osteomyelitis 4. Minor EKG changes compared to prior EKG. No cardiac symptoms, and no evidence of ischemia 5. Mild troponin elevation peaked at 0.18 then trended down. Most likely 2/2 demand supply mismatch from infection. Plan: * Continue current cardiac medications. * f/u on Echocardiogram. * Osteomyelitis management per medical team Continue telemetry? No Problem List: 1. Osteomyelitis of foot, right, acute 2. POSITIVE TROPONINS
--- NOTE | 2017-09-23 09:37 | PN- Housestaff ---
Subjective Follow-up For: Osteomyelitis New left bundle branch block SHIRA in Renal transplant patient Tele-Events Since Last Visit: Sinus rhythm heart rate 7184 QRS 0.1 SC 0.2 Subjective: No acute events overnight. Patient underwent surgery with Dr. Dye history. Continues to have 6 out of 10 pain. Continues to have nausea, vomiting, diarrhea. Review of Systems Constitutional: Reports: see HPI. Objective Last 24 Hrs of Vital Signs/I&O Vital Signs Date Time Temp Pulse Resp B/P B/P Pulse O2 O2 Flow FiO2 Mean Ox Delivery Rate 09/23 1454 100.2 09/23 1441 100.2 75 20 134/62 93 Room Air 09/23 1041 78 120/67 09/23 1040 78 120/67 09/23 0623 98.1 78 20 120/67 95 09/23 0100 101.3 09/22 2256 99.0 73 24 130/90 92 09/22 2040 98.9 67 24 130/68 93 Intake & Output 09/23 1600 09/23 0800 09/23 0000 Intake Total 1120 100 Output Total 100 250 Balance 1020 -150 Intake, IV 120 Intake, Oral 1000 100 Number 1 Bowel Movements Output, Urine 100 250 Patient 195 lb Weight Weight Reported by Patient Measurement Method Physical Exam General Appearance: Alert, Oriented X3, Cooperative, Mild Distress Cardiovascular: irregularly irregular Lungs: Clear to Auscultation, Normal Air Movement Abdomen: Normal Bowel Sounds, Soft, No Tenderness Extremities: L AV fistula, no lower extremity edema Vascular: 2+ radial pulses Current Medications: Current Medications Sig/Ira Start time Last Medication Dose Route Stop Time Status Admin Acetaminophen 1,000 MG ONCE ONE 09/23 0145 DC N/A 1 UNIT IV 09/23 0159 Acetaminophen 1,000 MG ONCE ONE 09/22 1900 DC 09/23 N/A 1 UNIT IV 09/22 191 0100 Acetaminophen 650 MG Q6P PRN 09/22 1600 AC 09/23 PO 1454 Al Hydroxide/Mg 30 ML Q4-6 PRN PRN 09/22 1645 AC Hydroxide PO Amiodarone HCl 100 MG DAILY 09/23 1000 AC 09/23 PO 1040 Apixaban 2.5 MG BID 09/23 2199 CAN PO Apixaban 5 MG BID 09/22 2199 DC PO Apixaban 2.5 MG BID 09/22 2199 AC 09/23 PO 0942 Atorvastatin Calcium 10 MG 1700 09/23 1700 AC 09/23 PO 1817 Bupropion HCl 100 MG DAILY 09/23 1000 AC 09/23 PO 0942 Calcium/Vitamin D 500 MG DAILY 09/22 1929 AC 09/23 PO 0942 Ceftriaxone Sodium 1,000 MG Q24H 09/22 1506 AC 09/23 IV 1412 Dextrose/Sodium 1,000 ML ONCE ONE 09/22 1430 DC 09/22 Chloride IV 09/23 0709 1441 Dicyclomine HCl 20 MG 4 TIMES/DAY 09/22 1800 AC 09/23 PO 1817 Escitalopram Oxalate 10 MG DAILY 09/23 1000 AC 09/23 PO 0942 Insulin Aspart 0 TIDAC 09/23 0800 DC SC Insulin Aspart 0 TIDAC/HS 09/23 0800 AC 09/23 SC 1824 Insulin Aspart 0 TIDAC 09/22 2115 DC SC Insulin Detemir 12.5 UNITS BID 09/22 2200 CAN SC Insulin Human Regular 0 Q6 09/22 1414 DC 09/22 SC 1441 Magnesium Oxide 400 MG BID 09/22 2200 DC 09/23 PO 09/23 1001 0942 Metoprolol Succinate 12.5 MG DAILY 09/23 1000 AC 09/23 PO 1041 Metronidazole 500 MG IQ8 09/22 1600 AC 09/23 N/A 1 UNIT IV 1818 Morphine Sulfate 2 MG Q4P PRN 09/22 1900 AC 09/23 IV 1453 Mycophenolate Mofetil 1,000 MG BID 09/22 2200 AC 09/23 PO 0942 Non-Formulary 0 SEE ADMIN CRITERIA 09/23 1315 CAN Medication ANY Patient Own 2 UNIT 0600 09/23 0600 DC 09/23 Medication PO 0629 Tacrolimus 2 MG 0600 09/24 0600 AC PO Tacrolimus 1.5 MG 0600 09/24 0600 AC PO Tacrolimus 2 MG ONCE ONE 09/23 1700 DC 09/23 PO 09/23 1701 1558 Tramadol HCl 25 MG ONCE ONE 09/23 0645 DC PO 09/23 0646 Vancomycin HCl 1,250 MG ONCE ONE 09/23 0815 DC 09/23 Dextrose/Water 250 ML IV 09/23 0914 0945 Last 24 Hrs of Lab/Joel Results Last 24 Hrs of Labs/Mics: Laboratory Tests 09/23/17 0645: Anion Gap 15, Estimated GFR 40 L, BUN/Creatinine Ratio 25.3 H, CBC w Diff MAN DIFF ORDERED, RBC 3.31 L, MCV 84.7, MCH 28.0, MCHC 33.1, RDW 13.9, MPV 8.3, Gran % 68.0, Lymphocytes % 6.9 L, Monocytes % 20.7 H, Eosinophils % 3.4, Basophils % 1.0, Absolute Granulocytes 1.7, Segmented Neutrophils 58, Band Neutrophils 6 H, Absolute Lymphocytes 0.2 L, Lymphocytes 12 L, Monocytes 23 H, Absolute Monocytes 0.5, Absolute Eosinophils 0.1, Absolute Basophils 0, Metamyelocytes 1, Platelet Estimate VERIFIED BY SMEAR, Normocytic RBCs VERIFIED, Normochromic RBCs VERIFIED, Random Vancomycin 7.8 09/23/17 0300: Troponin I 0.13 *H 09/22/172037: Troponin I 0.18 *H Microbiology 09/23 184 BLOOD: Blood Culture - RECD 09/23 1809 BLOOD: Blood Culture - RECD Assessment/Plan Assessment: Patient is a 71-year-old male with a PMH significant for ESRD status post renal transplant on tacrolimus and CellCept, paroxysmal atrial fibrillation on Eliquis , HTN, HLD, CVA, DM, with recent admission to [facility] for osteomyelitis , 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 Problem list #Sepsis 2/2 to R foot osteomyelitils MAXIMUM TEMPERATURE 13.1 WBC 2.6, 6 bands CRP >9 Blood cultures positive for gram-positive cocci in clusters X2 Surgical cultures positive for staph aureus Arterial Doppler: Decreased flow is noted within the right anterior tibial artery, lower part of the left popliteal, and posterior tibial, anterior tibial and dorsalis pedis arteries. -Continue ceftriaxone, metronidazole, vancomycin per ID -Follow-up random vancomycin level in a.m. If less than 15 dose 1000 1250 mg. -Follow culture final sensitivities -Follow-up echocardiogram -Possible angiogram on Tuesday #SHIRA on CKD History of renal transplant Creatinine 1.7 (baseline 1.2) -Continue tacrolimus 3.5 mg daily, mycophenolate -Follow nephrology recommendations -Continue calcium/vitamin D #New onset left bundle branch block/mild elevated troponins Troponins 0.04, 0.18, 0.13 Mild elevated troponins likely secondary to infection -Continue to follow cardiology recommendations #Chronic medical problems including PVD, paroxysmal A. fib, HTN, HLD, -Continue atorvastatin, metoprolol, amiodarone, escitalopram, bupropion, apixaban, dicyclomine, Maalox, #diabtes -Continue NovoLog sliding scale DVT prophylaxis: Eliquis CODE STATUS: Full code Problem List: 1. Left bundle branch block 2. Renal transplant rejection 3. SHIRA (acute kidney injury) 4. Osteomyelitis Pain Ratin Pain Location: r foot Pain Goal: Pain 4 or less Pain Plan: pain pathway Tomorrow's Labs & Rationales: taylor bep vanc
--- NOTE | 2017-09-23 10:48 | ULTRASOUND REPORT ---
EXAMINATION: US DUPLEX LOWER EXTREMITY ARTERY LIMITED, BILATERAL CLINICAL INFORMATION: Suspected right great toe osteomyelitis. COMPARISON: None. TECHNIQUE: 2-D imaging, Doppler spectral analysis and color flow Doppler imaging was performed of the RIGHT lower extremity artery. FINDINGS: 2-D imaging and color Doppler evaluation of both lower extremity arterial tree shows evidence of atherosclerotic plaques throughout the entire arterial tree bilaterally. The peak systolic velocities (Peak systolic velocity of less than 100 cm/s is considered to be normal for [place] lower extremity arterial tree), and the arterial waveform (triphasic, biphasic, monophasic) are described as below: The peak systolic velocities within both lower extremities as well as the spectral waveform pattern are described below: A. Right lower extremity: 1. Common femoral artery-116, triphasic 2. Profunda artery-112, biphasic 3. Proximal femoral artery-114, triphasic 4. Mid femoral artery-185, biphasic 5. Distal femoral artery-124, biphasic 6. Popliteal artery-150, triphasic 7. Posterior tibial artery-199, monophasic 8. Anterior tibial artery-36.1, triphasic 9. Dorsalis pedis artery-not evaluated due to overlying bandages. Left lower extremity: 1. Common femoral artery-123, biphasic 2. Profunda artery-125, triphasic 3. Proximal femoral artery-113, biphasic 4. Mid femoral artery-141, biphasic 5. Distal femoral artery-123, biphasic 6. Popliteal artery (lower)-81.5 biphasic 7. Posterior tibial artery-54.2 monophasic 8. Anterior tibial artery-41.6, biphasic 9. Dorsalis pedis artery-55.0 biphasic IMPRESSION: 1. Patent bilateral lower extremity arterial tree. 2. The right-sided dorsalis pedis artery could not be evaluated due to presence of overlying bandages. 3. Decreased flow is noted within the right anterior tibial artery, lower part of the left popliteal, and posterior tibial, anterior tibial and dorsalis pedis arteries.
--- NOTE | 2017-09-23 11:32 | PN- Infect Dx ---
Subjective Subjective: MAXIMUM TEMPERATURE 103.1. He feels improved today with some throbbing pain in the right foot. Objective Last 24 Hrs of Vital Signs/I&O Vital Signs Date Time Temp Pulse Resp B/P B/P Pulse O2 O2 Flow FiO2 Mean Ox Delivery Rate 09/23 1041 78 120/67 09/23 1040 78 120/67 09/23 0623 98.1 78 20 120/67 95 09/23 0100 101.3 09/22 2256 99.0 73 24 130/90 92 09/22 2040 98.9 67 24 130/68 93 09/22 1736 103.1 09/22 1657 94 Room Air 09/22 1529 100.5 88 20 195/84 96 Room Air 09/22 1334 101.1 87 20 175/74 91 Room Air Intake & Output 09/23 1600 09/23 0800 09/23 0000 Intake Total 1120 100 Output Total 100 250 Balance 1020 -150 Intake, IV 120 Intake, Oral 1000 100 Number 1 Bowel Movements Output, Urine 100 250 Patient 195 lb Weight Weight Reported by Patient Measurement Method Physical Exam Other Physical Findings: He appears more comfortable in no acute distress Lungs are clear Heart regular rhythm with a 1/6 systolic ejection murmur Abdomen is soft, nontender with positive bowel sounds Extremities right foot dressing intact Results Last 24 Hours of Lab Results: Laboratory Tests 09/23 09/23 09/22 0645 0300 2037 Chemistry Sodium (137 - 145 mmol/L) 135 L Potassium (3.5 - 5.1 mmol/L) 4.4 Chloride (98 - 107 mmol/L) 99 Carbon Dioxide (22 - 30 mmol/L) 21 L Anion Gap (5 - 16) 15 BUN (9 - 20 mg/dL) 43 H Creatinine (0.7 - 1.2 mg/dL) 1.7 H Estimated GFR (>60 ml/min) 40 L BUN/Creatinine Ratio (7 - 25 %) 25.3 H Troponin I (<0.11 ng/ml) 0.13 *H 0.18 *H Hematology CBC w Diff MAN DIFF ORDERED WBC (4.8 - 10.8 /CUMM) 2.6 L RBC (4.70 - 6.10 /CUMM) 3.31 L Hgb (14.0 - 18.0 G/DL) 9.3 L Hct (42 - 52 %) 28.0 L MCV (80.0 - 94.0 FL) 84.7 MCH (27.0 - 31.0 PG) 28.0 MCHC (33.0 - 37.0 G/DL) 33.1 RDW (11.5 - 14.5 %) 13.9 Plt Count (130 - 400 /CUMM) 225 MPV (7.4 - 10.4 FL) 8.3 Gran % (42.2 - 75.2 %) 68.0 Lymphocytes % (20.5 - 51.1 %) 6.9 L Monocytes % (1.7 - 9.3 %) 20.7 H Eosinophils % (0 - 5 %) 3.4 Basophils % (0.0 - 2.0 %) 1.0 Absolute Granulocytes (1.4 - 6.5 /CUMM) 1.7 Segmented Neutrophils (42.2 - 75.2 %) 58 Band Neutrophils (0.0 - 5.0 %) 6 H Absolute Lymphocytes (1.2 - 3.4 /CUMM) 0.2 L Lymphocytes (20.5 - 51.1 %) 12 L Monocytes (1.7 - 9.3 %) 23 H Absolute Monocytes (0.10 - 0.60 /CUMM) 0.5 Absolute Eosinophils (0.0 - 0.7 /CUMM) 0.1 Absolute Basophils (0.0 - 0.2 /CUMM) 0 Metamyelocytes (0.0 - 1.0 %) 1 Platelet Estimate (ADEQUATE) VERIFIED BY SMEAR Normocytic RBCs VERIFIED Normochromic RBCs VERIFIED Toxicology Random Vancomycin (ug/ml) 7.8 Last 24 Hours of Joel Results: Blood cultures 2 September 22 positive for gram-positive cocci in clusters OR culture labeled right foot bone positive for Staph aureus Recent Imaging Studies: Arterial Dopplers September 23 reveal decreased flow within the right anterior tibial artery, lower part of the left popliteal and posterior tibial, anterior tibial and dorsalis pedis arteries Assessment/Plan ID Impression: Appears improved status post revisional partial first ray resection of the right foot yesterday for a necrotic wound/osteomyelitis, with blood and OR cultures positive for Staph aureus. He was febrile overnight but his temperatures appear to be improved today on Vancomycin, Flagyl and Ceftriaxone, which can be continued pending final cultures. His renal function is slightly improved and will need to be followed closely. Suggestion: 1. Follow-up final OR cultures 2. Repeat blood cultures 2 2. Renal evaluation 4. Echocardiogram 5. Further management of his right foot with probable return to the OR next week per Podiatry 6. Vascular Surgery evaluation 7. Re-dose with Vancomycin 1.25 g IV 1 today 8. Recheck a random Vancomycin level in the a.m. and re-dose with 1.25 g IV 1 if less than 15 9. Continue Ceftriaxone and Flagyl pending final OR cultures
--- NOTE | 2017-09-23 11:40 | Cons- Nephrology ---
General Information and HPI Consulting Request Date of Consult: 09/23/17 Requested By: Lakeisha RANKIN,Gilbert Mark History of Present Illness: Asked to see this 71 yo gentleman with renal failure. He had been on dialysis until 3 years ago when he underwent renal transplantation (09/15/2014). He was recently here with a foot infection and got 2 days of Bactrim. He returns now with a foot infection and has been started on Vancomycin and Ceftriaxone. He is maintained on Envarsus (extended release tacrolimus) 3.5 mg daily and Cellcept 1000 mg bid. He missed some of his medications last admission due to the hospital not having Envarsus and was admitted yesterday with a foot infection for which he went to the OR for debridement. Blood cx are now growing GPC. Allergies/Medications Allergies: Coded Allergies: NO KNOWN ALLERGIES (NONE 09/09/17) Home Med List: Alprazolam 0.5 MG TABLET 1 TAB PO DAILY PRN Anxiety (Reported) Amiodarone (Cordarone) 200 MG TAB 0.5 TAB PO DAILY A.fib (Reported) Apixaban (Eliquis) 5 MG TABLET 1 TAB PO BID Blood Thinner (Reported) Aspirin (Ecotrin*) 81 MG TABLET.DR 1 TAB PO DAILY Heart Health (Reported) Atorvastatin Calcium 10 MG TABLET 1 TAB PO DAILY cholesterol (Reported) Bupropion HCl 100 MG TABLET 1 TAB PO DAILY pain (Reported) Calcitriol 0.25 MCG CAPSULE 1 CAP PO DAILY Bone health (Reported) Calcium (Elemental-Fr Calcarb) (Calcium Antacid) 400 MG CALCIUM (1,000 MG) TAB.CHEW 1,000 MG PO TID Supplement (Reported) Cholecalciferol (Vitamin D3) (Vitamin D-3) 2,000 UNIT TABLET 1 TAB PO DAILY Supplement (Reported) Coenzyme Q10 100 MG CAPSULE 1 CAP PO DAILY Supplement (Reported) Escitalopram Oxalate (Lexapro) 20 MG TABLET 1 TAB PO QPM Anxiety (Reported) Fludrocortisone Acetate 0.1 MG TABLET 1 TAB PO DAILY SUPPLEMENT (Reported) Hydroxychloroquine Sulfate 200 MG TABLET 1 TAB PO DAILY . (Reported) Insulin Glargine,Hum.rec.anlog (Lantus Solostar) 100 UNIT/ML (3 ML) INSULN.PEN 25 UNIT SC DAILY AC Blood sugar (Reported) 26 U daily Insulin Lispro (Humalog) 100 UNIT/ML CARTRIDGE 0 SC TIDAC/HS Blood sugar ( Reported) Please take as follow:\ Blood sugar 80-150 mg/dl: none 151-200 mg/dl: 2 U 201-250 mg/dl: 4 U 251-300 mg/dl: 6 U 301-350 mg/dl: 8 U 351-400 mg/dl: 10 U more than 401 mg/dl: 12 U and call Metoprolol Succ XL (Toprol XL) 25 MG TAB 0.5 TAB PO DAILY HEART HEALTH ( Reported) Mycophenolate Mofetil (Cellcept) 250 MG CAPSULE 4 CAP PO BID Immunotherapy ( Reported) Tacrolimus (Envarsus XR) 0.75 MG TAB.ER.24H 2 TAB PO DAILY TRANSPLANT ( Reported) Vit A,C & E/Lutein/Minerals (Ocuvite With Lutein Tablet) 1,000-60-2 TABLET 1 TAB PO DAILY Supplement (Reported) Past History Travel History Traveled to [facility] past 21 day No Medical History Neurological: STROKE EENT: NONE, glaucoma Cardiovascular: AFIB, hypertension, hyperlipidemia, AFIB (ON COUMADIN) Respiratory: NONE Gastrointestinal: NONE Hepatic: NONE Renal: ESRD on HD (in the past), renal transplant Musculoskeletal: fracture, R ARM FRACTURE Psychiatric: NONE Endocrine: IDDM Blood Disorders: NONE Cancer(s): NONE FAMILY COACH/Reproductive: NONE Surgical History Surgical History: RENAL TRANSPLANT right and left toe amputations secondary to IDDM Family History Relations & Conditions If Any: MOTHER FH: diabetes mellitus Myasthenia gravis FATHER FH myocardial infarction male first degree age known FH: diabetes mellitus Relation not specified for: *No pertinent family history Psychosocial History Smoking Status: Never Smoked Exam & Diagnostic Data Vital Signs and I&O Pleasant M NAD 120/67 78 98 TM 103 Skin neg rash ENT moist Lungs clear to A Cor RRR Abd soft Ext foot wrapped. Results Pertinent Lab Results: 135/ 99 / 43 / 4.4 / 21 / 1.7\ Hg 9.3 WBC 2.6 Assessment/Plan Assessment/Recommendations Assessment: Pt comfortable. He is on extended release Tacrolimus ENVARSUS. I spoke to the pharmacy today. They are unable to get this medication this weekend. The patient does not have enough medications or the correct dose with him (and is unable to get the second bottle (he takes 2 x 1 mg pills and 2 x 0.75 mg pills) Given this I would recommend transfer to [facility] for management of his foot as well as his transplant medications (it is not safe to skip his transplant medications for a few days). Discussed with medical team. His SHIRA is likely related to his sepsis / bacteremia. Agree with antibiotics as you are doing. will need to follow vancomycin level closely given his SHIRA and CKD. Dr. Dickinson aware. Preet Lindo MD. Recommendations: .
--- NOTE | 2017-09-23 13:02 | Discharge Summary ---
Visit Information Visit Dates Admission Date: 09/22/17 Discharge Date: 10/14/17 Hospital Course Course Attending Physician: Gilbert Suazo MD Primary Care Physician: Gilbert Suazo MD Hospital Course: Mr. Edouard is a 71-year-old male with a PMH significant for ESRD status post renal transplant on tacrolimus and CellCept, paroxysmal atrial fibrillation on Eliquis, HTN, HLD, CVA, DM, osteomyelitis of the right distal phalanx of the right great toe status post partial amputation 09/09/17 with positive pathology for osteomyelitis, blood and OR culture growing Escherichia coli, Citrobacter and MRSA, wound had clean margins and patient was discharged off antibiotics to home with home health services. Patient presented to the [facility] ED complaining of a several day history of malaise, nausea, vomiting, diarrhea, poor appetite. On admission he was febrile to 101.4, leukocytosis with bandemia. Necrotic and foul-smelling wound on the right foot. Patient had revision of recent right foot partial amputation with open incision and drainage, wound VAC placement, vascular intervention angiogram and angioplasty of right peroneal artery for poor blood supply. OR and blood culture again growing MRSA, patient was initially started on vancomycin that was switched to daptomycin given worsening kidney function and neutropenia. Continue Daptomycin to plan on a 4-6 week course of treatment ( until october 25). Weekly CPK while on Daptomycin Patient has baseline mild neutropenia that woresened, tacrolimus dose was decreased from 3.5 daily to 2.75 daily with daily tacrolimus level measurement were obtained, target level 7-12, mycophenolate was put on hold. Serum flow cytometry was obtained with no blast cells, hematology consultation was obtained and patient was started on Neupogen. Neutropenia improved. CMV titer was obtained negative. Patient had transient confusion and disorientation, all nonessential medication were discontinued, CT head and MRI head were obtained that showed multiple embolic foci, JUNIOR ruled out any septic emboli. Later in hospital stay patient started to complain of odynophagia, throat pain. Rapid strep test and flu test negative, repeated blood culture remained negative. CMV negative as mentioned above. Upper endoscopy was obtained that showed normal mucosa of stomach and esophagus, biopsies were obtained pending pathology report. Patient was started on PPI with good response. Endocrine consultation was obtained for optimal blood sugar management, keep blood sugar below 150. issues ADDENDUm This is a gentleman with s/p renal transplant with infected toe with osteo s/p surg * ON rx for - Infected foot with fever on admission MRSA sepsis- in a pt who is immunosupp (recent toe amputation with osteo, s/p complete debridement of osteo with toe amputation and wound closure on 09/09/17) now - MRSA infection and resolving sepsis. s/p angioplasty of peroneal artery and wound redebridement of the foot. PT now has a wound vac, and on daptomycin, and would need ferry terminal agent abx till 10/25/17. No sig endocarditis noted in junior. Poor wound healing and ongoing eval for further plan if he does not heal may need bka * Resolved Transient neutopenia and anemia - was on neupogen / cmv viral load neg, now his mycophenolate has been reduce to 500 bid needs to be on tacrolimus XR 4mg in am at 10 am (2 pills of xr 2mg or one pill of xr 4 mg) * Resolved odynophagia with endoscopy essentially unremarkable except for atrophic gastritis annd prob gastropersis * Has Afib and on eloquis, on anticoag, and statin * PT with Pafib in Sinus and sig atheromatous aorta, small pfo, - on eloquis ( MRI showing very small punctate lesions prob ateromatous small emboli) * REsolving SHIRA with CKD s/p renal transplant, creat now up to 1.5 needs eval * DM insulin requiring see insulin regimen * PVD, previous history of stoke, and previous toe amputation, now angioplasty with nonhealing ulcer * Previous secondary hyperparathyroid. Sig autonomic dysfunction was on fludocortisone * Pafib on eliquis (in sinus on amiodarone) * Depression and anxiety * Peripheral neuropathy * Resolved Mild ekg changes with slight elevated troponin stable REC FOR REHAB Please see med list Please do blood work every tuesday with BMP, CBC, CPK, ESR and tacrolimus level (this blood work should be drawn just before he takes his extended release tacrolimus pill ) and call the result into [facility] [phone] and fax to Dr. Suazo's office at [phone] Dapto to continue till 10/25 PT needs follow up appt with podiatry, vascular, and pcp (Drs. Mendiola, Tash Ernandez Allergies: Coded Allergies: NO KNOWN ALLERGIES (NONE 09/09/17) Disposition Summary Disposition Principal Diagnosis: Osteomyelitis of right foot status post open incision, drainage, wound VAC placement, angiogram and angioplasty Additional Diagnosis: Multiple embolic foci status post JUNIOR negative for septic emboli Discharge Disposition: SNF Discharge Instructions General Discharge Information Code Status: Full Code Patient's Diet: Consistent carbohydrate diet Patient's Activity: Touchdown weight-bear Heel touch Follow-Up Instructions/Appts: Please follow up with Dr. Suazo in 1 week. Please follow up with your renal transplant specialists at [place] in 1 week. Please follow up Gastroenterology Dr. Kay in 1 week. Please follow up with your logging shovel operator in 1 week. Please follow up with vascular surgery in 1 week. Please take your medications as perscribed. Continue Daptomycin to plan on a 4-6 week course of treatment (until November 03) Weekly CPK while on Daptomycin Medications at Discharge Discharge Medications: Stop taking the following medications: Mycophenolate Mofetil (Cellcept) 250 MG CAPSULE ORAL TWICE DAILY Qty = 120 Tacrolimus (Envarsus XR) 0.75 MG TAB.ER.24H ORAL DAILY Qty = 30 Aspirin (Ecotrin*) 81 MG TABLET. ORAL DAILY Qty = 30 Tacrolimus (Tacrolimus) 1 MG CAPSULE ORAL DAILY Qty = 60 Continue taking these medications: Alprazolam (Alprazolam) 0.5 MG TABLET 1 Tablet ORAL DAILY as needed for Anxiety Qty = 30 Comments: Last Taken: 10/13/17 Time: 1:30 PM Hydroxychloroquine Sulfate (Hydroxychloroquine Sulfate) 200 MG TABLET 1 Tablet ORAL DAILY Qty = 30 Comments: LAST TAKEN: 10/14/17 8:00 AM Insulin Glargine,Hum.rec.anlog (Lantus Solostar) 100 UNIT/ML (3 ML) INSULN.PEN 30 Unit Inject into fatty tissue DAILY BEFORE BREAKFAST Qty = 30 Instructions: 26 U daily Comments: NOT TAKEN IN HOSPITAL (LEVEMIR [address]), LAST GIVEN 06/20 9:00 AM Insulin Lispro (Humalog) 100 UNIT/ML CARTRIDGE 0 Inject into fatty tissue BEFORE MEALS AND AT BEDTIME Instructions: Please take as follow:\ Blood sugar 80-150 mg/dl: none 151-200 mg/dl: 2 U 201-250 mg/dl: 4 U 251-300 mg/dl: 6 U 301-350 mg/dl: 8 U 351-400 mg/dl: 10 U more than 401 mg/dl: 12 U and call Vit A,C & E/Lutein/Minerals (Ocuvite With Lutein Tablet) 1,000-60-2 TABLET 1 Tablet ORAL DAILY Qty = 30 Comments: NOT TAKEN IN HOSPITAL Atorvastatin Calcium (Atorvastatin Calcium) 10 MG TABLET 1 Tablet ORAL DAILY Qty = 30 Comments: NOT GIVEN IN HOSPITAL Fludrocortisone Acetate (Fludrocortisone Acetate) 0.1 MG TABLET 1 Tablet ORAL DAILY Qty = 30 Comments: NOT GIVEN IN HOSPITAL Metoprolol Succ XL (Toprol XL) 25 MG TAB 0.5 Tablet ORAL DAILY Qty = 30 Comments: LAST TAKEN: 10/14/17 8:00 AM Calcitriol (Calcitriol) 0.25 MCG CAPSULE Capsule ORAL DAILY Qty = 30 Comments: NOT GIVEN IN HOSPITAL Amiodarone (Cordarone) 200 MG TAB 0.5 Tablet ORAL DAILY Qty = 30 Comments: Last Taken: 10/14/17 Time: 8:00 AM Bupropion HCl (Bupropion HCl) 100 MG TABLET 1 Tablet ORAL DAILY Qty = 30 Comments: NOT GIVEN IN HOSPITAL Escitalopram Oxalate (Lexapro) 20 MG TABLET 1 Tablet ORAL Every night Qty = 30 Comments: Last Taken: 10/14/17 Time: 8:00 AM Apixaban (Eliquis) 5 MG TABLET 1 Tablet ORAL TWICE DAILY Qty = 60 Comments: Last Taken: 10/14/17 Time: 8:00 AM Coenzyme Q10 (Coenzyme Q10) 100 MG CAPSULE 1 Capsule ORAL DAILY Qty = 30 Comments: NOT TAKEN IN HOSPITAL Calcium (Elemental-Fr Calcarb) (Calcium Antacid) 400 MG CALCIUM (1,000 MG) TAB.CHEW 1,000 Milligram ORAL THREE TIMES DAILY Qty = 90 Comments: GIVEN 500MG 10/14/17 8:00 AM Cholecalciferol (Vitamin D3) (Vitamin D-3) 2,000 UNIT TABLET 1 Tablet ORAL DAILY Qty = 30 Comments: NOT GIVEN IN HOSPITAL Start taking the following new medications: Daptomycin (Cubicin) 500 MG VIAL 500 Milligram INTRAVEN DAILY Qty = 12 No Refills Instructions: PLEASE CONTINUE UNTIL October 25 Omeprazole (Omeprazole) 20 MG CAPSULE.DR 1 Tablet ORAL DAILY Qty = 30 No Refills Comments: Last Taken: 10/14/17 Time: 6:00 AM Mycophenolate Mofetil (Cellcept) 500 MG TABLET 1 Tablet ORAL TWICE DAILY Qty = 60 No Refills Comments: Last Taken: 10/14/17 Time: 1:30 PM Tacrolimus (Envarsus XR) 4 MG TAB.ER.24H 1 Tablet ORAL DAILY 1000 Qty = 30 No Refills Copies To: Lakeisha RANKIN,Gilbert Mark; Rey Dye DPM; Lydia RANKIN,Tomas Doe; Candace RANKIN,Mendoza Sy; Tai RANKIN, Moises; Teena RANKIN,Eben Oliva; Randall RANKIN,[facility]; Eduardo RANKIN,[facility]
--- NOTE | 2017-09-23 13:07 | Patient Discharge Instructions ---
Discharge Instructions General Discharge Information Special Instructions: Please follow up with Dr. Suazo in 1 week. Please follow up with your renal transplant specialists at [place] in 1 week. Please follow up Gastroenterology Dr. Kay in 1 week. Please follow up with your electronic imager in 1 week. Please follow up with vascular surgery in 1 week. Please take your medications as perscribed. Acute Coronary Syndrome Inclusion Criteria At DC or during hospital stay patient has or had the following: ACS DIAGNOSIS No Discharge Core Measures Meds if any: Prescribed or Continued at Discharge Meds if any: NOT Prescribed or Continued at Discharge Congestive Heart Failure Inclusion Criteria At DC or during hospital stay patient has or had the following: CHF DIAGNOSIS No Discharge Core Measures Meds if any: Prescribed or Continued at Discharge Meds if any: NOT Prescribed or Continued at Discharge Cerebrovascular accident Inclusion Criteria At DC or during hospital stay patient has or had the following: CVA/TIA Diagnosis No Discharge Core Measures Meds if any: Prescribed or Continued at Discharge Meds if any: NOT Prescribed or Continued at Discharge Venous thromboembolism Inclusion Criteria VTE Diagnosis No VTE Type NONE VTE Confirmed by (Test) NONE Discharge Core Measures - Per Current guidelines, there needs to be overlap - treatment for the first 5 days of Warfarin therapy. - If discharged on Warfarin prior to 5 days of - overlap therapy, the patient will need to be - assessed for post discharge needs including - *Post discharge parental anticoagulation - *Warfarin and/or parental anticoagulation education - *Follow up date to check INR post discharge At least 5 days overlap therapy as Inpatient No Meds if any: Prescribed or Continued at Discharge Note: Overlap Therapy is Warfarin and Anticoagulant Meds if any: NOT Prescribed or Continued at Discharge
[2017-09-23] MEDS ORDERED: TACROLIMUS1 M1 PO (13:09)
[2017-09-23 14:41] VITALS: BP 134/62
--- NOTE | 2017-09-23 17:59 | Cons- Vascular Surgery ---
General Information and HPI Consulting Request Date of Consult: 09/23/17 Requested By: Lakeisha RANKIN,Gilbert Makr History of Present Illness: 71-year-old man who is status post kidney transplant about 3 years ago was recently hospitalized with right foot infection. He underwent podiatry surgery by Dr. Dye who found inadequate perfusion in the operating room. The patient has had an arterial ultrasound as outpatient which showed no significant arterial disease. He was just admitted yesterday with fever. He has been started on IV antibiotics. He has paroxysmal atrial fibrillation and is being maintained on anticoagulation with Eliquis. Vascular surgery was consulted regarding adequacy of blood perfusion to the right foot. Allergies/Medications Allergies: Coded Allergies: NO KNOWN ALLERGIES (NONE 09/09/17) Home Med List: Alprazolam 0.5 MG TABLET 1 TAB PO DAILY PRN Anxiety (Reported) Amiodarone (Cordarone) 200 MG TAB 0.5 TAB PO DAILY A.fib (Reported) Apixaban (Eliquis) 5 MG TABLET 1 TAB PO BID Blood Thinner (Reported) Aspirin (Ecotrin*) 81 MG TABLET.DR 1 TAB PO DAILY Heart Health (Reported) Atorvastatin Calcium 10 MG TABLET 1 TAB PO DAILY cholesterol (Reported) Bupropion HCl 100 MG TABLET 1 TAB PO DAILY pain (Reported) Calcitriol 0.25 MCG CAPSULE 1 CAP PO DAILY Bone health (Reported) Calcium (Elemental-Fr Calcarb) (Calcium Antacid) 400 MG CALCIUM (1,000 MG) TAB.CHEW 1,000 MG PO TID Supplement (Reported) Cholecalciferol (Vitamin D3) (Vitamin D-3) 2,000 UNIT TABLET 1 TAB PO DAILY Supplement (Reported) Coenzyme Q10 100 MG CAPSULE 1 CAP PO DAILY Supplement (Reported) Escitalopram Oxalate (Lexapro) 20 MG TABLET 1 TAB PO QPM Anxiety (Reported) Fludrocortisone Acetate 0.1 MG TABLET 1 TAB PO DAILY SUPPLEMENT (Reported) Hydroxychloroquine Sulfate 200 MG TABLET 1 TAB PO DAILY . (Reported) Insulin Glargine,Hum.rec.anlog (Lantus Solostar) 100 UNIT/ML (3 ML) INSULN.PEN 25 UNIT SC DAILY AC Blood sugar (Reported) 26 U daily Insulin Lispro (Humalog) 100 UNIT/ML CARTRIDGE 0 SC TIDAC/HS Blood sugar ( Reported) Please take as follow:\ Blood sugar 80-150 mg/dl: none 151-200 mg/dl: 2 U 201-250 mg/dl: 4 U 251-300 mg/dl: 6 U 301-350 mg/dl: 8 U 351-400 mg/dl: 10 U more than 401 mg/dl: 12 U and call Metoprolol Succ XL (Toprol XL) 25 MG TAB 0.5 TAB PO DAILY HEART HEALTH ( Reported) Mycophenolate Mofetil (Cellcept) 250 MG CAPSULE 4 CAP PO BID Immunotherapy ( Reported) Tacrolimus 1 MG CAPSULE 2 CAP PO DAILY KIDNEY TRANSPLANT (Reported) 3.5MG TOTAL DAILY OF ENVARSUS XR (1MG TABS X2 AND 0.75MG TABS X2) Tacrolimus (Envarsus XR) 0.75 MG TAB.ER.24H 2 TAB PO DAILY TRANSPLANT ( Reported) Vit A,C & E/Lutein/Minerals (Ocuvite With Lutein Tablet) 1,000-60-2 TABLET 1 TAB PO DAILY Supplement (Reported) Past History Medical History Neurological: STROKE EENT: NONE, glaucoma Cardiovascular: AFIB, hypertension, hyperlipidemia, AFIB (ON COUMADIN) Respiratory: NONE Gastrointestinal: NONE Hepatic: NONE Renal: ESRD on HD (in the past), renal transplant Musculoskeletal: fracture, R ARM FRACTURE Psychiatric: NONE Endocrine: IDDM Blood Disorders: NONE Cancer(s): NONE 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 Surgical History Pertinent Surgical History: RENAL TRANSPLANT right and left toe amputations secondary to IDDM Family History Relations & Conditions If Any: MOTHER FH: diabetes mellitus Myasthenia gravis FATHER FH myocardial infarction male first degree age known FH: diabetes mellitus Relation not specified for: *No pertinent family history Psychosocial History Smoking Status: Never Smoked Review of Systems Review of Systems: Patient denies headache, dizziness, cough, palpitation, diarrhea or constipation Exam & Diagnostic Data Vital Signs and I&O Vital Signs Date Time Temp Pulse Resp B/P B/P Pulse O2 O2 Flow FiO2 Mean Ox Delivery Rate 09/23 1454 100.2 09/23 1441 100.2 75 20 134/62 93 Room Air 09/23 1041 78 120/67 09/23 1040 78 120/67 09/23 0623 98.1 78 20 120/67 95 09/23 0100 101.3 09/22 2256 99.0 73 24 130/90 92 09/22 2040 98.9 67 24 130/68 93 Intake & Output 09/23 1600 09/23 0800 03/23 0000 09/22 1600 09/22 0800 09/22 0000 Intake Total 3736 821 5346 Output Total 100 250 Balance 1020 -150 1000 Intake, IV 120 1000 Intake, Oral 1000 100 Number 1 Bowel Movements Output, Urine 100 250 Patient 195 lb 195 lb Weight Weight Reported by Patient Reported by Patient Measurement Method Physical Exam: Patient is alert and oriented 3 Lungs: Clear to auscultation bilaterally Heart: Regular rate and rhythm Abdomen: Soft, nontender nondistended Extremities: Palpable femoral pulses bilaterally. I am unable to palpate pedal pulses on the right. There is a palpable dorsalis pedis on the left. Assessment/Plan Assessment/Plan 71-year-old man status post kidney transplantation about 3 years ago and A. fib on anticoagulation presented with sepsis and nonhealing right foot infection. He underwent I&D by Dr. Dye. He has no palpable pedal pulses on the right. An outside arterial ultrasound of the right leg showed no evidence of significant arterial stenosis. However, given nonpalpable pulses and infected nonhealing right foot wound, the next step would be to perform an angiogram of the right leg. Creatinine is 1.7 with GFR of 40. Prior to the angiogram, he will need clearance from nephrology. I will try to use as little contrast as possible. He will also be well-hydrated both pre-and post angiogram. The angiogram can tentatively be performed on Tuesday if OR is available. For now, please continue with medical management. Thank you Consult Acknowledgment - Thank you for your consult request. Attending MD Review Statement Attending Statement Attending MD Statement: examined this patient, discuss w/resident/PA/GARNETT MACHINE OPERATOR
--- NOTE | 2017-09-23 19:15 | PN- Pulmonary ---
Subjective HPI/Critical Care Issues: s/p surg issues and data reviewed FUll note per it intern Febrile Arterial doppler noted Objective Current Medications: Current Medications Sig/Ira Start time Last Medication Dose Route Stop Time Status Admin Acetaminophen 1,000 MG ONCE ONE 09/23 0145 DC N/A 1 UNIT IV 09/23 0159 Acetaminophen 1,000 MG ONCE ONE 09/22 1900 DC 09/23 N/A 1 UNIT IV 09/22 1914 0100 Acetaminophen 650 MG Q6P PRN 09/22 1600 AC 09/23 PO 1454 Al Hydroxide/Mg 30 ML Q4-6 PRN PRN 09/22 1645 AC Hydroxide PO Amiodarone HCl 100 MG DAILY 09/23 1000 AC 09/23 PO 1040 Apixaban 2.5 MG BID 09/23 2200 CAN PO Apixaban 5 MG BID 09/22 2200 DC PO Apixaban 2.5 MG BID 09/22 2200 AC 09/23 PO 0942 Atorvastatin Calcium 10 MG 1700 09/23 1700 AC 09/23 PO 1817 Bupropion HCl 100 MG DAILY 09/23 1000 AC 09/23 PO 0942 Calcium/Vitamin D 500 MG DAILY 09/22 1929 AC 09/23 PO 0942 Ceftriaxone Sodium 1,000 MG Q24H 09/22 1506 AC 09/23 IV 1412 Dextrose/Sodium 1,000 ML ONCE ONE 09/22 1430 DC 09/22 Chloride IV 09/23 0709 1441 Dicyclomine HCl 20 MG 4 TIMES/DAY 09/22 1800 AC 09/23 PO 1817 Escitalopram Oxalate 10 MG DAILY 09/23 1000 AC 09/23 PO 0942 Insulin Aspart 0 TIDAC 09/23 0800 DC SC Insulin Aspart 0 TIDAC/HS 09/23 0800 AC 09/23 SC 1824 Insulin Aspart 0 TIDAC 09/22 2115 DC SC Insulin Detemir 12.5 UNITS BID 09/22 2200 CAN SC Insulin Human Regular 0 Q6 09/22 1414 DC 09/22 SC 1441 Magnesium Oxide 400 MG BID 09/22 2200 DC 09/23 PO 09/23 1001 0942 Metoprolol Succinate 12.5 MG DAILY 09/23 1000 AC 09/23 PO 1041 Metronidazole 500 MG IQ8 09/22 1600 AC 09/23 N/A 1 UNIT IV 1818 Morphine Sulfate 2 MG Q4P PRN 09/22 1900 AC 09/23 IV 1453 Mycophenolate Mofetil 1,000 MG BID 09/22 2200 AC 09/23 PO 0942 Non-Formulary 0 SEE ADMIN CRITERIA 09/23 1315 CAN Medication ANY Patient Own 2 UNIT 09/23 0600 DC 09/23 Medication PO 0629 Tacrolimus 2 MG 09/24 0600 AC PO Tacrolimus 1.5 MG 09/24 0600 AC PO Tacrolimus 2 MG ONCE ONE 09/23 1700 DC 09/23 PO 09/23 1701 1558 Tramadol HCl 25 MG ONCE ONE 09/23 0645 DC PO 09/23 0646 Vancomycin HCl 1,250 MG ONCE ONE 09/23 0815 DC 09/23 Dextrose/Water 250 ML IV 09/23 0914 0945 Vital Signs & I&O Last 24 Hrs of Vitals and I&O: Vital Signs Date Time Temp Pulse Resp B/P B/P Pulse O2 O2 Flow FiO2 Mean Ox Delivery Rate 09/23 1454 100.2 09/23 1441 100.2 75 20 134/62 93 Room Air 09/23 1041 78 120/67 09/23 1040 78 120/67 09/23 06 98.1 78 20 120/67 95 09/23 0100 101.3 09/22 2256 99.0 73 24 130/90 92 09/22 2040 98.9 67 24 130/68 93 Intake & Output 09/23 1600 09/23 0800 09/23 0000 Intake Total 1120 100 Output Total 100 250 Balance 1020 -150 Intake, IV 120 Intake, Oral 1000 100 Number 1 Bowel Movements Output, Urine 100 250 Patient 195 lb Weight Weight Reported by Patient Measurement Method Impression/Plan Impression/Plan Impression/Plan: General Appearance: well developed/nourished, alert, awake, anxious, mild distress Head: atraumatic, normal appearance Eyes: Bilateral: normal appearance, PERRL, EOMI. Ears, Nose, Throat: normal pharynx, normal ENT inspection, hearing grossly normal Neck: normal inspection, supple, full range of motion, no midline tenderness Respiratory: normal breath sounds, chest non-tender, no respiratory distress, quiet respiration, lungs clear Cardiovascular: normal peripheral pulses, irregularly irregular, norml femoral pulses equa Peripheral Pulses: 4+ carotid (R), 4+ carotid (L) Gastrointestinal: normal bowel sounds, soft, non-tender, no organomegaly Back: normal inspection, normal range of motion, no vertebral tenderness Extremities: no edema, pelvis stable,s/p debridement and in dressing Neurologic/Psych: no motor/sensory deficits, awake, alert, oriented x 3, normal mood/affect, post doctoral researcher II-XII 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 Lymphatic: no anterior cervical fortunato avf intact IMPRESSION This is a gentleman with s/p renal transplant with infected toe with osteo s/p surg recently with amputation and sub delayed closure who had ecoli and staph was dcd recently off abx as his stump was clean and all his infected tissue had been excised now with * Infected foot with fever in a pt who is immunosupp (recent toe amputation) s/p debridement and previous toe amputation * SHIRA with CKD s/p renal transplant, creat now 1.6 * On immunosupp rx, with mild leukopenia and hence sig immunosupp * DM insulin requiring * PVD, previous history of stoke, and previous toe amputation * Previous secondary hyperparathyroid * Sig autonomic dysfnction on fludocortisone * Pafib on eliquis (in sinus on amiodarone) * Depression and anxiety * Peripheral neuropathy * Mild ekg changes wiht slight elevated troponin REC * ID and Podiatry and renal following * IVF with D5 ns at 60 cc can be dcd * IV abx per ID * EKG monitoring per cardio * Keep sugars at 150 or below with sliding scale * Hold plaquanil * COnt immunosupp rx ( a must and cannot miss the doses) * Reduce dose of eloquis to 2.5 bid as he has ckd * Cont metoprolol, statin, amio, antidepressants Vascular consult - please call and needs eval Will follow closely
[2017-09-23 22:30] VITALS: BP 130/68
[2017-09-24 06:58] VITALS: BP 140/70
--- NOTE | 2017-09-24 08:26 | PN- Housestaff ---
Ella RANKIN,Fernanda 09/24/17 0826: Subjective Follow-up For: Osteomyelitis New left bundle branch block SHIRA in Renal transplant patient Subjective: No acute events overnight. T-max 101.3 continues to have 5out of 10 pain. Continues to have nausea, vomiting, diarrhea. Blood culture was positive in 2/2 bottles for MRSA, or culture positive for MRSA as well Review of Systems Constitutional: Reports: see HPI. Objective Last 24 Hrs of Vital Signs/I&O Vital Signs Date Time Temp Pulse Resp B/P B/P Pulse O2 O2 Flow FiO2 Mean Ox Delivery Rate 09/24 0956 65 140/70 09/24 0956 65 140/70 09/24 0800 98 Room Air 09/24 0658 99.0 82 20 140/70 98 Room Air 09/23 2230 98.3 62 20 130/68 95 09/23 1454 100.2 09/23 1441 100.2 75 20 134/62 93 Room Air Intake & Output 09/24 1600 09/24 0800 09/24 0000 Intake Total 120 120 Output Total Balance 120 120 Intake, Oral 120 120 Patient 199 lb Weight Physical Exam General Appearance: Alert, Oriented X3, Cooperative, No Acute Distress HEENT: Atraumatic, PERRLA, EOMI Cardiovascular: Normal S1, Normal S2 Lungs: Clear to Auscultation Abdomen: Normal Bowel Sounds, Soft, No Tenderness Neurological: Normal Speech, Strength at 5/5 X4 Ext, Normal Tone Extremities: No Clubbing (L AV FISTULA, NO LE EDEMA) Current Medications: Current Medications Sig/Ira Start time Last Medication Dose Route Stop Time Status Admin Acetaminophen 650 MG .STK-MED ONE 09/23 1448 DC PO 09/23 1449 Acetaminophen 650 MG Q6P PRN 09/22 1600 AC 09/24 PO 0748 Al Hydroxide/Mg 30 ML Q4-6 PRN PRN 09/22 1645 AC Hydroxide PO Amiodarone HCl 100 MG DAILY 09/23 1000 AC 09/24 PO 0956 Apixaban 2.5 MG BID 09/22 2200 AC 09/24 PO 0956 Atorvastatin Calcium 10 MG 1700 09/23 1700 AC 09/23 PO 1817 Benzocaine/Menthol 1 CELIA Q2P PRN 09/24 0615 AC 09/24 PO 0739 Bupropion HCl 100 MG DAILY 09/23 1000 AC 09/24 PO 0956 Calcium/Vitamin D 500 MG DAILY 09/22 1929 AC 09/24 PO 0956 Ceftriaxone Sodium 1,000 MG Q24H 09/22 1506 AC 09/23 IV 1412 Dicyclomine HCl 20 MG 4 TIMES/DAY 09/22 1800 AC 09/24 PO 0956 Escitalopram Oxalate 10 MG DAILY 09/23 1000 AC 09/24 PO 0956 Insulin Aspart 0 TIDAC/HS 09/23 0800 AC 09/24 SC 0742 Metoprolol Succinate 12.5 MG DAILY 09/23 1000 AC 09/24 PO 0956 Metronidazole 500 MG IQ8 09/22 1600 AC 09/24 N/A 1 UNIT IV 0842 Morphine Sulfate 2 MG Q4P PRN 09/22 1900 AC 09/23 IV 1453 Mycophenolate Mofetil 1,000 MG BID 09/22 2200 AC 09/24 PO 0956 Non-Formulary 0 SEE ADMIN CRITERIA 09/23 1315 CAN Medication ANY Patient Own 2 UNIT 00 09/23 0600 DC 09/23 Medication PO 0629 Tacrolimus 2 MG 09/24 0600 AC 09/24 PO 0531 Tacrolimus 1.5 MG 00 09/24 0600 AC 09/24 PO 0531 Tacrolimus 2 MG ONCE ONE 09/23 1700 DC 09/23 PO 09/23 1701 1558 Last 24 Hrs of Lab/Joel Results Last 24 Hrs of Labs/Mics: Laboratory Tests 09/24/17 0649: Anion Gap 14, Estimated GFR 35 L, BUN/Creatinine Ratio 24.7, CBC w Diff MAN DIFF ORDERED, RBC 3.16 L, MCV 84.0, MCH 28.0, MCHC 33.4, RDW 13.9, MPV 8.5, Gran % 55.0, Lymphocytes % 12.7 L, Monocytes % 28.5 H, Eosinophils % 1.9, Basophils % 1.9, Absolute Granulocytes 0.8 L, Segmented Neutrophils 46, Band Neutrophils 8 H, Absolute Lymphocytes 0.2 L, Lymphocytes 23, Monocytes 22 H, Absolute Monocytes 0.4, Eosinophils 1, Absolute Eosinophils 0, Absolute Basophils 0, Platelet Estimate ADEQUATE, Hypochromic-Microcytic 2+, Poikilocytosis 2+, Anisocytosis 2+, Ovalocytes 1+, Random Vancomycin 11.7 09/24/17 0600: Random Vancomycin Cancelled Microbiology 09/23 1840 BLOOD: Blood Culture - RECD 09/23 1810 BLOOD: Blood Culture - RECD Assessment/Plan Problem List: 1. Osteomyelitis 2. SHIRA (acute kidney injury) Pain Ratin Pain Location: RT FOOT Pain Goal: Pain 4 or less Pain Plan: PATHWAY Tomorrow's Labs & Rationales: CBC BEP Preet Bey MD 09/24/17 1419: Attending MD Review Statement Attending Statement Attending MD Statement: examined this patient, discuss w/resident/PA/RN DOCUMENTATION, agreed w/resident/PA/RN DOCUMENTATION, reviewed EMR data (avail), reviewed images, amended to note Attending Assessment/Plan: Mr. Emery was interviewed and examined. His EMR was reviewed. He notes his foot pain to be improving. He denies cardiac symptoms. Tmax was 100.2. Pulse, respirations, blood pressure, and oxygen saturations are stable He is in no acute distress. Lung exam is clear to A&P. Cardiac exam reveals a regular rate and rhythm. His abdomen is soft and nontender. There is a clean and dry surgical dressing on his right foot and his left lower extremity shows no edema. CBC shows an H&H of 8.9/86.5 and a WBC of 1500 with platelets 207,000. His electrolytes are stable and renal function shows a creatinine of 1.9 BUN of 47. These are increased today. Operative cultures positive for MRSA sensitive to tetracycline, SMX/TMP, and vancomycin. Gram stains of 2/2 at cultures obtained September 24 are being interpreted as MRSA. 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 At this time it is reasonable to we should there are spectrum. We await infectious disease input. -We are continuing the patient's anti-transplant rejection regimen. -We are continuing sliding-scale coverage for the patient's elevated glucose. We should attempt to associate are Accu-Cheks and sliding scale insulin to the patient's meals. -We are continuing the patient's anticoagulation, rate control medications and maintenance medications for his PAF. We continue to monitor on telemetry. -We are continuing the patient's anxiolytics and antidepressants. -We continue to the patient's troponins. Echocardiogram is pending. Cardiology input is much appreciated. -Vascular surgery's input is also appreciated. We will need to follow the patient's renal function carefully to determine if any dye studies can be attempted.
[2017-09-24 08:52] LABS: ABSOLUTE BASOPHIL COUNT 0 /CUMM (0.0-0.2); ABSOLUTE EOSINOPHIL COUNT 0 /CUMM (0.0-0.7); ABSOLUTE GRANULOCYTE CT 0.8 /CUMM (1.4-6.5); ABSOLUTE LYMPH COUNT 0.2 /CUMM (1.2-3.4); ABSOLUTE MONOCYTE COUNT 0.4 /CUMM (0.10-0.60); BASOPHIL % 1.9 % (0.0-2.0); EOSINOPHIL % 1.9 % (0-5); HEMATOCRIT 26.5 % (42-52); MEAN CORPUSCULAR HGB CONC 33.4 G/DL (33.0-37.0); MEAN PLATELET VOLUME 8.5 FL (7.4-10.4); PLATELET COUNT 207 /CUMM (130-400); RBC DISTRIBUTION WIDTH 13.9 % (11.5-14.5); RED BLOOD CELL CT 3.16 /CUMM (4.70-6.10); WHITE BLOOD CELL COUNT 1.5 /CUMM (4.8-10.8)
--- NOTE | 2017-09-24 11:53 | PN- Cardiology ---
Subjective Subjective: Patient is sleeping comfortably upon my arrival. Is reluctant to wake up. Appears comfortable. No shortness of breath. No chest pains. Desires to sleep most of the day according to nursing. Review of Systems: Denies chest pains and palpitations. Denies shortness of breath. Objective Vital Signs and I&Os Vital Signs Date Time Temp Pulse Resp B/P B/P Pulse O2 O2 Flow FiO2 Mean Ox Delivery Rate 09/24 0956 65 140/70 09/24 0956 65 140/70 09/24 0800 98 Room Air 09/24 0658 99.0 82 20 140/70 98 Room Air 09/23 2230 98.3 62 20 130/68 95 09/23 1454 100.2 09/23 1441 100.2 75 20 134/62 93 Room Air Intake & Output 09/24 1600 09/24 0800 09/24 0000 09/23 1600 09/23 0800 09/23 0000 Intake Total 120 389 719 0086 100 Output Total 100 250 Balance 120 913 539 9296 -150 Intake, IV 200 120 Intake, Oral 120 966 162 0244 100 Number 1 Bowel Movements Output, Urine 100 250 Patient 199 lb 195 lb Weight Weight Reported by Patient Measurement Method Physical Exam: Appears comfortable tired. In no apparent distress. HEENT exam grossly normal No jugular venous distention observed at 15 Lungs are clear S1 and S2 are audible and of normal intensity there is a 1/6 systolic ejection murmur left sternal border Abdomen is soft nondistended bowel sounds are normal there is no lower extremity edema Bandage on the foot wound was not removed for evaluation. Current Medications: Current Medications Sig/Ira Start time Last Medication Dose Route Stop Time Status Admin Acetaminophen 650 MG .STK-MED ONE 09/23 1448 DC PO 09/23 1449 Acetaminophen 650 MG Q6P PRN 09/22 1600 AC 09/24 PO 0748 Al Hydroxide/Mg 30 ML Q4-6 PRN PRN 09/22 1645 AC Hydroxide PO Amiodarone HCl 100 MG DAILY 09/23 1000 AC 09/24 PO 0956 Apixaban 2.5 MG BID 09/22 2200 AC 09/24 PO 0956 Atorvastatin Calcium 10 MG 1700 09/23 1700 AC 09/23 PO 1817 Benzocaine/Menthol 1 CELIA Q2P PRN 09/24 0615 AC 09/24 PO 0739 Bupropion HCl 100 MG DAILY 09/23 1000 AC 09/24 PO 0956 Calcium/Vitamin D 500 MG DAILY 09/22 1929 AC 09/24 PO 0956 Ceftriaxone Sodium 1,000 MG Q24H 09/22 1506 AC 09/23 IV 1412 Dicyclomine HCl 20 MG 4 TIMES/DAY 09/22 1800 AC 09/24 PO 0956 Escitalopram Oxalate 10 MG DAILY 09/23 1000 AC 09/24 PO 0956 Insulin Aspart 0 TIDAC/HS 09/23 0800 AC 09/24 SC 0742 Metoprolol Succinate 12.5 MG DAILY 09/23 1000 AC 09/24 PO 0956 Metronidazole 500 MG IQ8 09/22 1600 AC 09/24 N/A 1 UNIT IV 0842 Morphine Sulfate 2 MG Q4P PRN 09/22 1900 AC 09/23 IV 1453 Mycophenolate Mofetil 1,000 MG BID 09/22 2200 AC 09/24 PO 0956 Non-Formulary 0 SEE ADMIN CRITERIA 09/23 1315 CAN Medication ANY Patient Own 2 UNIT 09/23 0600 DC 09/23 Medication PO 0629 Tacrolimus 2 MG 0600 09/24 0600 AC 09/24 PO 0531 Tacrolimus 1.5 MG 0600 09/24 0600 AC 09/24 PO 0531 Tacrolimus 2 MG ONCE ONE 09/23 1700 DC 09/23 PO 09/23 1701 1558 Results Last 48 Hrs of Labs/Mics: Laboratory Tests 09/24/17 0649: Anion Gap 14, Estimated GFR 35 L, BUN/Creatinine Ratio 24.7, CBC w Diff MAN DIFF ORDERED, RBC 3.16 L, MCV 84.0, MCH 28.0, MCHC 33.4, RDW 13.9, MPV 8.5, Gran % 55.0, Lymphocytes % 12.7 L, Monocytes % 28.5 H, Eosinophils % 1.9, Basophils % 1.9, Absolute Granulocytes 0.8 L, Segmented Neutrophils 46, Band Neutrophils 8 H, Absolute Lymphocytes 0.2 L, Lymphocytes 23, Monocytes 22 H, Absolute Monocytes 0.4, Eosinophils 1, Absolute Eosinophils 0, Absolute Basophils 0, Platelet Estimate ADEQUATE, Hypochromic-Microcytic 2+, Poikilocytosis 2+, Anisocytosis 2+, Ovalocytes 1+, Random Vancomycin 11.7 09/24/17 0600: Random Vancomycin Cancelled 09/23/17 0645: Anion Gap 15, Estimated GFR 40 L, BUN/Creatinine Ratio 25.3 H, CBC w Diff MAN DIFF ORDERED, RBC 3.31 L, MCV 84.7, MCH 28.0, MCHC 33.1, RDW 13.9, MPV 8.3, Gran % 68.0, Lymphocytes % 6.9 L, Monocytes % 20.7 H, Eosinophils % 3.4, Basophils % 1.0, Absolute Granulocytes 1.7, Segmented Neutrophils 58, Band Neutrophils 6 H, Absolute Lymphocytes 0.2 L, Lymphocytes 12 L, Monocytes 23 H, Absolute Monocytes 0.5, Absolute Eosinophils 0.1, Absolute Basophils 0, Metamyelocytes 1, Platelet Estimate VERIFIED BY SMEAR, Normocytic RBCs VERIFIED, Normochromic RBCs VERIFIED, Random Vancomycin 7.8 09/23/17 0300: Troponin I 0.13 *H 09/22/172037: Troponin I 0.18 *H Microbiology 09/22 1857 EXTREMITIE: Gross Specimen Examination - COMP METH RESIST STAPH AUREUS 09/22 1857 EXTREMITIE: Gram Stain - COMP Assessment/Plan Assessment/Plan Patient with history of renal transplant admitted for treatment of osteomyelitis of the foot. Complicated by non-ST elevation HI in the context of demand versus supply mismatch. Is stable at the moment from a cardiac standpoint. Continue the same cardiac medication and continue to follow with the care team. Continue telemetry? No Problem List: 1. Diabetes mellitus 2. POSITIVE TROPONINS 3. Osteomyelitis
[2017-09-24 15:03] VITALS: BP 104/44
[2017-09-24 23:12] VITALS: BP 160/90
[2017-09-25 07:16] VITALS: BP 190/80
[2017-09-25 08:06] VITALS: BP 184/76
--- NOTE | 2017-09-25 08:11 | PN- Infect Dx ---
Subjective Subjective: MAXIMUM TEMPERATURE 100.5. He reports 1 episode of diarrhea yesterday with no nausea, vomiting or abdominal pain. He has no pain in the right foot and offers no other complaints. Objective Last 24 Hrs of Vital Signs/I&O Vital Signs Date Time Temp Pulse Resp B/P B/P Pulse O2 O2 Flow FiO2 Mean Ox Delivery Rate 09/25 0716 97.3 83 20 190/80 96 Room Air 09/24 2313 99.6 09/24 2312 99.6 71 24 160/90 96 09/24 2218 Room Air 09/24 2111 100.5 09/24 1600 93 Room Air 09/24 1503 98.3 73 18 104/44 93 Room Air 09/24 0956 65 140/70 09/24 0956 65 140/70 Intake & Output 09/25 1600 09/25 0800 09/25 0000 Intake Total 200 950 Output Total 100 225 Balance 100 725 Intake, IV 350 Intake, Oral 200 600 Number 1 Bowel Movements Output, Urine 100 225 Patient 200 lb Weight Physical Exam Other Physical Findings: He appears comfortable in no acute distress Lungs are clear Heart regular rhythm with a 1/6 systolic ejection murmur Abdomen is soft, nontender with positive bowel sounds Extremities right foot dressing intact Results Last 24 Hours of Lab Results: Laboratory Tests 09/25 0630 Chemistry Sodium (137 - 145 mmol/L) 133 L Potassium (3.5 - 5.1 mmol/L) 4.1 Chloride (98 - 107 mmol/L) 100 Carbon Dioxide (22 - 30 mmol/L) 20 L Anion Gap (5 - 16) 14 BUN (9 - 20 mg/dL) 43 H Creatinine (0.7 - 1.2 mg/dL) 1.8 H Estimated GFR (>60 ml/min) 37 L BUN/Creatinine Ratio (7 - 25 %) 23.9 Hematology CBC w Diff Pending WBC Pending RBC Pending Hgb Pending Hct Pending MCV Pending MCH Pending MCHC Pending RDW Pending Plt Count Pending MPV Pending Toxicology Vancomycin Trough (10.0 - 20.0 ug/mL) Pending Last 24 Hours of Joel Results: Blood cultures September 22 positive for MRSA Blood cultures September 23 negative Blood cultures September 24 negative OR culture labeled right foot bone September 22 positive for MRSA Stool C. difficile September 24 pending Assessment/Plan ID Impression: Low-grade fevers, possibly secondary to his right foot infection, status post revisional partial first ray resection 3 days ago for a necrotic wound/ osteomyelitis, with his blood and OR cultures positive for MRSA. He remains on Vancomycin, Flagyl and Ceftriaxone but, based on the final OR cultures, his antibiotics can be adjusted. He does report diarrhea and a C. difficile is pending. His white blood cell count yesterday decreased and he is now neutropenic, possibly secondary to sepsis or his immunosuppressive medications, and this will need to be followed closely. His renal function is slightly improved from yesterday but remains elevated and is of concern status post renal transplant. Suggestion: 1. Neutropenic precautions 2. Follow-up stool for C. difficile 3. Echocardiogram 4. Further management of his right foot per Podiatry 5. Close monitoring of his white blood cell count and renal function 6. Further evaluation of his vascular status per Vascular Surgery 7. Discontinue Ceftriaxone and Flagyl 8. Add a random Vancomycin level to this morning's labs and re-dose with Vancomycin 1 g IV 1 if less than 15
[2017-09-25 08:28] LABS: ABSOLUTE BASOPHIL COUNT 0.1 /CUMM (0.0-0.2); ABSOLUTE EOSINOPHIL COUNT 0 /CUMM (0.0-0.7); ABSOLUTE GRANULOCYTE CT 0.8 /CUMM (1.4-6.5); ABSOLUTE LYMPH COUNT 0.3 /CUMM (1.2-3.4); ABSOLUTE MONOCYTE COUNT 0.5 /CUMM (0.10-0.60); BASOPHIL % 3.3 % (0.0-2.0); EOSINOPHIL % 2.8 % (0-5); HEMATOCRIT 25.4 % (42-52); MEAN CORPUSCULAR HGB 27.9 PG (27.0-31.0); MEAN CORPUSCULAR HGB CONC 33.3 G/DL (33.0-37.0); MEAN CORPUSCULAR VOLUME 83.7 FL (80.0-94.0); MEAN PLATELET VOLUME 8.5 FL (7.4-10.4); PLATELET COUNT 195 /CUMM (130-400); RBC DISTRIBUTION WIDTH 13.9 % (11.5-14.5); RED BLOOD CELL CT 3.03 /CUMM (4.70-6.10); WHITE BLOOD CELL COUNT 1.7 /CUMM (4.8-10.8)
--- NOTE | 2017-09-25 09:14 | PN- Housestaff ---
Ignacio RANKIN,[facility] 09/25/17 0914: Subjective Follow-up For: Osteomyelitis New left bundle branch block SHIRA in Renal transplant patient Tele-Events Since Last Visit: NSR/BBB HR 6070 Subjective: No acute events overnight. Patient still complains of right intermittent sharp lower extremity pain status post surgery. Review of Systems Constitutional: Reports: see HPI. Objective Last 24 Hrs of Vital Signs/I&O Vital Signs Date Time Temp Pulse Resp B/P B/P Pulse O2 O2 Flow FiO2 Mean Ox Delivery Rate 09/25 0934 70 142/60 09/25 0809 72 184/76 09/25 0809 72 184/76 09/25 0806 72 184/76 09/25 0800 96 Room Air 09/25 0716 97.3 83 20 190/80 96 Room Air 09/24 2313 99.6 09/24 2312 99.6 71 24 160/90 96 09/24 2218 Room Air 09/24 2111 100.5 09/24 1600 93 Room Air Intake & Output 09/25 1600 09/25 0800 09/25 0000 Intake Total 8850 200 950 Output Total 250 100 225 Balance 8600 100 725 Intake, IV 130 350 Intake, Oral 8720 200 600 Number 1 1 Bowel Movements Output, Urine 250 100 225 Patient 200 lb Weight Physical Exam General Appearance: Alert, Oriented X3, Cooperative Cardiovascular: irregularly irregular Lungs: Clear to Auscultation, Normal Air Movement Abdomen: Normal Bowel Sounds, Soft, No Tenderness Extremities: L av fistula, no LE edema Vascular: 2+ R radial pulse Current Medications: Current Medications Sig/Ira Start time Last Medication Dose Route Stop Time Status Admin Acetaminophen 650 MG .STK-MED ONE 09/24 2108 DC PO 09/24 2109 Acetaminophen 650 MG Q6P PRN 09/22 1600 AC 09/24 PO 211 Al Hydroxide/Mg 30 ML Q4-6 PRN PRN 09/22 1645 AC Hydroxide PO Amiodarone HCl 100 MG DAILY 09/23 1000 AC 09/25 PO 0809 Apixaban 2.5 MG BID 09/22 2200 AC 09/25 PO 0922 Atorvastatin Calcium 10 MG 1700 09/23 1700 AC 09/24 PO 1744 Benzocaine/Menthol 1 CELIA Q2P PRN 09/24 0615 AC 09/24 PO 1502 Bupropion HCl 100 MG DAILY 09/23 1000 AC 09/25 PO 0922 Calcium/Vitamin D 500 MG DAILY 09/22 1929 AC 09/25 PO 0922 Ceftriaxone Sodium 1,000 MG Q24H 09/22 1506 DC 09/24 IV 1433 Dicyclomine HCl 20 MG 4 TIMES/DAY 09/22 1800 AC 09/24 PO 2111 Escitalopram Oxalate 10 MG DAILY 09/23 1000 AC 09/25 PO 0922 Insulin Aspart 0 TIDAC/HS 09/23 0800 AC 09/25 SC 1246 Insulin Detemir 25 UNITS 1/2H BEFOR/BREAKFAST 09/26 0700 DC AR Insulin Detemir 25 UNITS 1/2H BEFOR/BREAKFAST 09/25 0930 AC 09/25 SC 0921 Metoprolol Succinate 12.5 MG DAILY 09/23 1000 AC 09/25 PO 0809 Metronidazole 500 MG IQ8 09/22 1600 DC 09/25 N/A 1 UNIT IV 0801 Morphine Sulfate 2 MG Q4P PRN 09/22 1900 AC 09/24 IV 2125 Mycophenolate Mofetil 1,000 MG BID 09/22 2200 AC 09/25 PO 0922 Tacrolimus 2 MG 0600 09/24 0600 AC 09/25 PO 0535 Tacrolimus 1.5 MG 00 09/24 0600 AC 09/25 PO 0535 Vancomycin HCl 1,000 MG ONCE ONE 09/25 1315 DC 09/25 Dextrose/Water 250 ML IV 09/25 1414 1501 Vancomycin HCl 1,250 MG ONCE ONE 09/24 1545 DC 09/24 Dextrose/Water 250 ML IV 09/24 1644 1815 Last 24 Hrs of Lab/Joel Results Last 24 Hrs of Labs/Mics: Laboratory Tests 09/25/17 06: Anion Gap 14, Estimated GFR 37 L, BUN/Creatinine Ratio 23.9, CBC w Diff MAN DIFF ORDERED, RBC 3.03 L, MCV 83.7, MCH 27.9, MCHC 33.3, RDW 13.9, MPV 8.5, Gran % 47.0, Lymphocytes % 16.4 L, Monocytes % 30.5 H, Eosinophils % 2.8, Basophils % 3.3 H, Absolute Granulocytes 0.8 L, Segmented Neutrophils 45, Band Neutrophils 5, Absolute Lymphocytes 0.3 L, Lymphocytes 16 L, Monocytes 30 H, Absolute Monocytes 0.5, Eosinophils 3, Absolute Eosinophils 0, Basophils 1, Absolute Basophils 0.1, Platelet Estimate ADEQUATE, Hypochromic-Microcytic 1+, Poikilocytosis 1+, Anisocytosis 1+, Vancomycin Trough 15.0 Microbiology 09/25 2127 BLOOD: Blood Culture - RES 09/24 2014 BLOOD: Blood Culture - RES 09/24 1740 STOOL: Clostridium difficile Toxin A & B - COMP Assessment/Plan Assessment: Patient is a 71-year-old male with a PMH significant for ESRD status post renal transplant on tacrolimus and CellCept, paroxysmal atrial fibrillation on Eliquis , HTN, HLD, CVA, DM, with recent admission to [facility] for osteomyelitis , 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 Problem list #Sepsis 08/05 to R foot osteomyelitils MAXIMUM TEMPERATURE 13.1 WBC 2.6, 6 bands CRP >9 Blood cultures + for MRSA Surgical cultures + for MRSA Arterial Doppler: Decreased flow is noted within the right anterior tibial artery, lower part of the left popliteal, and posterior tibial, anterior tibial and dorsalis pedis arteries. - vanc trough today 15. given 1000mg -Continue vancomycin per ID. Stop ceftriaxone, metronidazole, -Follow-up random vancomycin level in a.m -Follow culture final sensitivities -Follow-up echocardiogram -Possible angiogram on Tuesday #neurtopenia WBC 1.7 -Continue neutropenic diet -Follow-up hematology oncology consult #SHIRA on CKD History of renal transplant Creatinine 1.7 (baseline 1.2) -Continue tacrolimus 3.5 mg daily, mycophenolate -Follow nephrology recommendations -Continue calcium/vitamin D #H/H drop CBC 05/02 (september 22) now 8.4/25.4 -Continue to monitor -Type and cross #New onset left bundle branch block/mild elevated troponins Troponins 0.04, 0.18, 0.13 Mild elevated troponins likely secondary to infection -Continue to follow cardiology recommendations #Chronic medical problems including PVD, paroxysmal A. fib, HTN, HLD, -Continue atorvastatin, metoprolol, amiodarone, escitalopram, bupropion, apixaban, dicyclomine, Maalox, #diabtes -Continue NovoLog sliding scale DVT prophylaxis: Eliquis CODE STATUS: Full code Problem List: 1. Left bundle branch block 2. SHIRA (acute kidney injury) 3. Osteomyelitis Pain Ratin Pain Location: none Pain Goal: Pain 4 or less Pain Plan: pain pathway Tomorrow's Labs & Rationales: random vanc cbc bep Maida RANKINPreet 09/25/17 1409: Attending MD Review Statement Attending Statement Attending MD Statement: examined this patient, discuss w/resident/PA/LINING REPAIRER, agreed w/resident/PA/LINING REPAIRER, reviewed EMR data (avail), amended to note Attending Assessment/Plan: Mr. Emery was interviewed and examined. His EMR was reviewed. He has essentially no complaints with the exception of occasional pain in his right foot. Tmax 100.5 with stable and acceptable heart and respiratory rates. He had an episode of elevated systolic blood pressure this a.m. but that has corrected. He is in no acute distress. Pulmonary exam reveals equal and clear breath sounds. Cardiac exam exam reveals a regular rate and rhythm with a systolic ejection murmur. His abdomen is soft and nontender. His right foot dressing is clean and dry and his left lower extremities showing no edema. WBC today has increased to 1700 with an H&H of 8.4/25.4 which is stable. INR is 2.56. Electrolytes and renal function are essentially unchanged. His initial blood cultures are now growing MRSA 2. Follow-up blood cultures 2 sets are negative to date. -I agree with the discontinuation of the patient's other antibiotics given the growth of MRSA from his blood and wound cultures. We are continuing vancomycin. I agree with neutropenic precautions and should this continue we should contact hematology. -We are continuing telemetry for the patient's PAF. INR is therapeutic today and we are continuing his other associated medications. -We are continuing sliding-scale insulin coverage for his diabetes. -Her continuing his anxiolytics and antidepressants.
[2017-09-25 09:34] VITALS: BP 142/60
--- NOTE | 2017-09-25 14:26 | ECHOCARDIOGRAM REPORT ---
BOBBI VELARDE Age: 71 : 1945 Gender: M Exam Date: 09/25/2017 10:27 Exam Location: [address] Ht (in): 70 Wt (lb): 199 BSA: 2.13 BP: 190 / 80 Ordering Physician: Jace Hoffmann MD Referring Physician: Darius Lujan MD Technologist: Mala Bonilla [facility] Room Number: 187 Indications: MYOCARDIAL ISCHEMIA/MO Rhythm: Sinus Technical Quality: Fair FINDINGS Left Ventricle Normal size left ventricle. No obvious regional wall motion abnormalities. Normal left ventricular ejection fraction estimated at 55-60%. Right Ventricle Right ventricle not well visualized, grossly normal. Right Atrium Normal right atrial size. Left Atrium Moderate left atrial dilatation. Mitral Valve Mild thickening/calcification of the anterior mitral valve leaflet. Moderate mitral annular calcification. Mild mitral regurgitation. Aortic Valve Trileaflet aortic valve. Diffuse thickening (sclerosis) of the aortic valve cusps without reduced excursion. No aortic stenosis. No aortic regurgitation. Consistent with vegetation on the aortic valve. Tricuspid Valve Tricuspid valve not well visualized, grossly normal. Mild tricuspid regurgitation. Pulmonic Valve Pulmonic valve not well visualized, grossly normal. Mild pulmonic regurgitation. Pericardium Small pericardial effusion. Great Vessels Normal size aortic root and proximal ascending aorta. CONCLUSIONS 1. Moderate aortic sclerosis is present with no significant valvular stenosis or insufficiency. 2. A mobile echodensity is noted on the left ventricular outflow tract aspect of the aortic valve. This may represent a degenerative valvular lesion, however, the possibility of a vegetation cannot be excluded by this study. 3. Thickening and calcification of the mitral leaflets is present with mild to moderate annular calcification and mild mitral insufficiency with moderate left atrial enlargement. 4. Small pericardial effusion is present which is hemodynamically insignificant. 5. The left ventricular chamber size and systolic function appear normal. There are no resting wall motion abnormalities. 6. Mild tricuspid and pulmonic insufficiency are present. There is no evidence of pulmonary hypertension. 7. A transesophageal echocardiogram is suggested in this patient to better assess the anatomy of the aortic valve and to better exclude a valvular vegetative lesion. Reason Darius Lujan M.D. (Electronically Signed) Final Date: 25 September 2017 14:25 MEASUREMENTS (Male / Female) Normal Values 2D ECHO LV Diastolic Diameter PLAX 4.6 cm 4.2 - 5.9 / 3.9 - 5.3 cm LV Systolic Diameter PLAX 2.8 cm 2.1 - 4.0 cm LV Fractional Shortening PLAX 39.1 % 25 - 46 % LV Ejection Fraction 2D Teich 69.6 % IVS Diastolic Thickness 1.9 cm LVPW Diastolic Thickness 1.9 cm LV Relative Wall Thickness 0.8 RV Internal Dim ED PLAX 2.5 cm 1.9 - 3.8 cm LVOT Diameter 2.4 cm Aortic Root Diameter 3.6 cm LA Systolic Diameter LX 5.3 cm 3.0 - 4.0 / 2.7 - 3.8 cm LA Volume 73.0 cm 18 - 58 / 22 - 52 cm Ascending Aorta Diameter 3.3 cm DOPPLER AV Peak Velocity 112.0 cm/s AV Peak Gradient 5.0 mmHg AV Mean Velocity 79.9 cm/s AV Mean Gradient 3.0 mmHg AV Velocity Time Integral 27.9 cm LVOT Peak Velocity 76.7 cm/s LVOT Peak Gradient 2.4 mmHg LVOT Mean Velocity 56.4 cm/s LVOT Mean Gradient 1.0 mmHg LVOT Velocity Time Integral 22.7 cm LVOT Stroke Volume 102.7 cm AV Area Cont Eq vti 3.7 cm AV Area Cont Eq pk 3.1 cm MV Peak Velocity 135.0 cm/s MV Peak Gradient 7.3 mmHg MV Mean Velocity 75.0 cm/s MV Mean Gradient 3.0 mmHg Mitral E Point Velocity 132.0 cm/s Mitral A Point Velocity 89.3 cm/s Mitral E to A Ratio 1.5 MV PHT Velocity 142.0 cm/s MV Deceleration Wilkes 575.0 cm/s MV Pressure Half Time 74.1 ms MV Area PHT 3.0 cm MV Deceleration Time 161.0 ms TR Peak Velocity 298.0 cm/s TR Peak Gradient 35.5 mmHg Right Atrial Pressure 5.0 mmHg Pulmonary Artery Systolic Pressu 40.5 mmHg Right Ventricular Systolic Press 40.5 mmHg PV Peak Velocity 105.0 cm/s PV Peak Gradient 4.4 mmHg PV Mean Velocity 73.7 cm/s PV Mean Gradient 3.0 mmHg PV Velocity Time Integral 23.4 cm LV E' Lateral Velocity 7.2 cm/s Mitral E to LV E' Lateral Ratio 18.3 LV E' Septal Velocity 5.9 cm/s Mitral E to LV E' Septal Ratio 22.2
[2017-09-25 15:11] VITALS: BP 110/62
[2017-09-25 23:00] VITALS: BP 152/70
[2017-09-26 06:00] VITALS: BP 152/68
--- NOTE | 2017-09-26 07:32 | PN- Housestaff ---
Subjective Follow-up For: Osteomyelitis New left bundle branch block SHIRA in Renal transplant patient Tele-Events Since Last Visit: NSR/BBB Heart rate Subjective: No acute events overnight. Patient states she does not have any blood in his urine, bloody stools, or vomiting blood. He states that he still has intermittent pain is right lower extremity which is well-controlled. This morning nurses stated the patient was disoriented. However I talked to the patient and he is alert and oriented 3. Nurses stated that the patient was saying his pills on the floor. I informed him that the specks on the floor are actually a design of the tile and not his pills. Patient most likely needs glasses to see clearly. Review of Systems Constitutional: Reports: see HPI. Objective Last 24 Hrs of Vital Signs/I&O Vital Signs Date Time Temp Pulse Resp B/P B/P Pulse O2 O2 Flow FiO2 Mean Ox Delivery Rate 09/26 1414 98.5 65 20 140/70 95 Room Air 09/26 0849 66 152/68 09/26 0848 66 152/68 09/26 0600 99.5 66 20 152/68 94 09/25 2300 98.8 62 20 152/70 95 Intake & Output 09/26 1600 09/26 0800 09/26 0000 Intake Total 700 240 750 Output Total 300 451 Balance 700 -60 299 Intake, IV 250 Intake, Oral 700 240 500 Number 1 Bowel Movements Output, Stool 1 Output, Urine 300 450 Patient 198 lb Weight Weight Bed scale Measurement Method Physical Exam General Appearance: Alert, Oriented X3, Cooperative Cardiovascular: irregularly irregular Lungs: Clear to Auscultation, Normal Air Movement Abdomen: Normal Bowel Sounds, Soft, No Tenderness Extremities: RLE oozing blood and covered in dressing Vascular: 2+ r radial pulses, L av fistula Current Medications: Current Medications Sig/Ira Start time Last Medication Dose Route Stop Time Status Admin Acetaminophen 650 MG .STK-MED ONE 09/25 2129 DC PO 09/25 2130 Acetaminophen 650 MG Q6P PRN 09/22 1600 AC 09/25 PO 2130 Acetylcysteine 1,200 MG Q12 09/26 1615 AC 09/26 PO 09/27 2201 1716 Al Hydroxide/Mg 30 ML Q4-6 PRN PRN 09/22 1645 AC Hydroxide PO Alprazolam 0.5 MG DAILY PRN 09/25 2114 DC 09/25 PO 10/02 2114 2132 Amiodarone HCl 100 MG DAILY 09/23 1000 AC 09/26 PO 0848 Apixaban 2.5 MG BID 09/22 2200 DC 09/26 PO 0848 Atorvastatin Calcium 10 MG 1700 09/23 1700 AC 09/26 PO 1715 Benzocaine/Menthol 1 CELIA Q2P PRN 09/24 0615 AC 09/24 PO 1502 Bupropion HCl 100 MG DAILY 09/23 1000 AC 09/26 PO 0849 Calcium/Vitamin D 500 MG DAILY 09/22 1929 AC 09/26 PO 0849 Dextrose/Sodium 1,000 ML Q13H 09/26 1800 CAN Chloride IV Dextrose/Sodium 1,000 ML Q13H 09/26 1430 DC 09/26 Chloride IV 1432 Dicyclomine HCl 20 MG 4 TIMES/DAY 09/22 1800 AC 09/26 PO 1715 Escitalopram Oxalate 10 MG DAILY 09/23 1000 AC 09/26 PO 0848 Folic Acid 2.5 MG DAILY 09/26 1345 AC 09/26 PO 10/02 1001 1715 Insulin Aspart 0 TIDAC/HS 09/23 0800 AC 09/26 SC 1717 Insulin Detemir 13 UNITS 8AM 09/27 0800 SC Insulin Detemir 25 UNITS 1/2H BEFOR/BREAKFAST 09/25 0930 09/26 SC 0630 Metoprolol Succinate 12.5 MG DAILY 09/23 1000 AC 09/26 PO 0849 Morphine Sulfate 2 MG Q4P PRN 09/22 1900 AC 09/24 IV 2125 Mycophenolate Mofetil 1,000 MG BID 09/22 2200 AC 09/26 PO 0848 Sodium Chloride 1,000 ML Q13H 09/26 1800 AC IV Tacrolimus 2 MG 09/24 0600 AC 09/26 PO 0537 Tacrolimus 1.5 MG 09/24 0600 AC 09/26 PO 0536 Last 24 Hrs of Lab/Joel Results Last 24 Hrs of Labs/Mics: Laboratory Tests 09/26/17 0647: Anion Gap 12, Estimated GFR 46 L, Ferritin > 1000.0 H, Vitamin B12 > 1000 H, Folate 12.2, CBC w Diff MAN DIFF ORDERED, RBC 2.81 L, MCV 83.5, MCH 27.8, MCHC 33.3, RDW 13.8, MPV 8.6, Gran % 49.7, Lymphocytes % 18.5 L, Monocytes % 26.4 H , Eosinophils % 4.5, Basophils % 0.9, Absolute Granulocytes 0.9 L, Segmented Neutrophils 49, Absolute Lymphocytes 0.4 L, Lymphocytes 20 L, Monocytes 28 H, Absolute Monocytes 0.5, Eosinophils 3, Absolute Eosinophils 0.1, Absolute Basophils 0, Platelet Estimate VERIFIED BY SMEAR, Normocytic RBCs VERIFIED, Normochromic RBCs VERIFIED, Random Vancomycin 19.5 09/26/17 0600: Tacrolimus Pending Assessment/Plan Assessment: Patient is a 71-year-old male with a PMH significant for ESRD status post renal transplant on tacrolimus and CellCept, paroxysmal atrial fibrillation on Eliquis , HTN, HLD, CVA, DM, with recent admission to [facility] for osteomyelitis , 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 ED complaining of a several day history of malaise, nausea, vomiting, diarrhea, poor appetite found to have 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 Problem list #Sepsis 2/2 to R foot osteomyelitils MAXIMUM TEMPERATURE 100.5 WBC 1.9, 0 bands CRP >9 Blood cultures + for MRSA Surgical cultures + for MRSA Arterial Doppler: Decreased flow is noted within the right anterior tibial artery, lower part of the left popliteal, and posterior tibial, anterior tibial and dorsalis pedis arteries. Echocardiogram reveals possible vegetation -Plan for angio with vasc surgery tomorrow. Patient is nothing by mouth. Patient will begin NS at 75. HOLDING apixaban -f/u tacrolimus levels - vanc trough today 19.5 -f/u random Vanco trough in a.m. If less than 15 give 1000 gentamicin -Continue vancomycin per ID. Stoped ceftriaxone, metronidazole, -Follow-up echocardiogram -Possible angiogram on Tuesday #neurtopenia WBC 1.7 -Continue neutropenic diet and precautions -Follow-up hematology oncology consult #SHIRA on CKD History of renal transplant Creatinine 1.5 (baseline 1.2) -cont NS, NAC -Continue tacrolimus 3.5 mg daily, mycophenolate -Follow nephrology recommendations -Continue calcium/vitamin D #H/H drop / anemia CBC 05/02 (september 22) now 7.8/23.5 Folate 12.2, B12 >1000, ferritin >1000, iron - pending -f/u peripheral blood flow cytometry -Npehro okay with EPO. will touch base with heme-onc regarding start date -Repeat CBCs at 6 PM -Continue to monitor -Type and cross -Continue folic acid 2.5 mg X7 days #diabtes Exam blood sugars less than 150 -cont endo recs #New onset left bundle branch block/mild elevated troponins Troponins 0.04, 0.18, 0.13 Mild elevated troponins likely secondary to infection -Continue to follow cardiology recommendations #Chronic medical problems including PVD, paroxysmal A. fib, HTN, HLD, -Continue atorvastatin, metoprolol, amiodarone, escitalopram, bupropion, apixaban, dicyclomine, Maalox, DVT prophylaxis: Eliquis CODE STATUS: Full code Problem List: 1. Left bundle branch block 2. Osteomyelitis 3. SHIRA (acute kidney injury) 4. Renal transplant recipient Pain Ratin Pain Location: R foot Pain Goal: Pain 4 or less Pain Plan: pain pathway Tomorrow's Labs & Rationales: cbc@6pm cbc bep random vanc
--- NOTE | 2017-09-26 07:33 | Cons- Hematology ---
General Information and HPI Consulting Request Date of Consult: 09/26/17 Requested By: Lakeisha RANKIN,Gilbert Mark History of Present Illness: The patient is a 71-year-old gentleman with a complicated history renal transplantation, currently being treated with CellCept and tacrolimus now admitted with recurrent fevers and sepsis. Patient is now found to be neutropenic. Patient recently was discovered to have osteomyelitis the right great toe. He was treated with partial amputation and antibiotics. He was now readmitted with fever and sepsis with MRSA. As an outpatient, he was treated with Bactrim. Currently he feels better. Patient is also aware of chronic anemia. Allergies/Medications Allergies: Coded Allergies: NO KNOWN ALLERGIES (NONE 09/09/17) Home Med List: Alprazolam 0.5 MG TABLET 1 TAB PO DAILY PRN Anxiety (Reported) Amiodarone (Cordarone) 200 MG TAB 0.5 TAB PO DAILY A.fib (Reported) Apixaban (Eliquis) 5 MG TABLET 1 TAB PO BID Blood Thinner (Reported) Aspirin (Ecotrin*) 81 MG TABLET.DR 1 TAB PO DAILY Heart Health (Reported) Atorvastatin Calcium 10 MG TABLET 1 TAB PO DAILY cholesterol (Reported) Bupropion HCl 100 MG TABLET 1 TAB PO DAILY pain (Reported) Calcitriol 0.25 MCG CAPSULE 1 CAP PO DAILY Bone health (Reported) Calcium (Elemental-Fr Calcarb) (Calcium Antacid) 400 MG CALCIUM (1,000 MG) TAB.CHEW 1,000 MG PO TID Supplement (Reported) Cholecalciferol (Vitamin D3) (Vitamin D-3) 2,000 UNIT TABLET 1 TAB PO DAILY Supplement (Reported) Coenzyme Q10 100 MG CAPSULE 1 CAP PO DAILY Supplement (Reported) Escitalopram Oxalate (Lexapro) 20 MG TABLET 1 TAB PO QPM Anxiety (Reported) Fludrocortisone Acetate 0.1 MG TABLET 1 TAB PO DAILY SUPPLEMENT (Reported) Hydroxychloroquine Sulfate 200 MG TABLET 1 TAB PO DAILY . (Reported) Insulin Glargine,Hum.rec.anlog (Lantus Solostar) 100 UNIT/ML (3 ML) INSULN.PEN 25 UNIT SC DAILY AC Blood sugar (Reported) 26 U daily Insulin Lispro (Humalog) 100 UNIT/ML CARTRIDGE 0 SC TIDAC/HS Blood sugar ( Reported) Please take as follow:\ Blood sugar 80-150 mg/dl: none 151-200 mg/dl: 2 U 201-250 mg/dl: 4 U 251-300 mg/dl: 6 U 301-350 mg/dl: 8 U 351-400 mg/dl: 10 U more than 401 mg/dl: 12 U and karolyn RANKIN Metoprolol Succ XL (Toprol XL) 25 MG TAB 0.5 TAB PO DAILY HEART HEALTH ( Reported) Mycophenolate Mofetil (Cellcept) 250 MG CAPSULE 4 CAP PO BID Immunotherapy ( Reported) Tacrolimus 1 MG CAPSULE 2 CAP PO DAILY KIDNEY TRANSPLANT (Reported) 3.5MG TOTAL DAILY OF ENVARSUS XR (1MG TABS X2 AND 0.75MG TABS X2) Tacrolimus (Envarsus XR) 0.75 MG TAB.ER.24H 2 TAB PO DAILY TRANSPLANT ( Reported) Vit A,C & E/Lutein/Minerals (Ocuvite With Lutein Tablet) 1,000-60-2 TABLET 1 TAB PO DAILY Supplement (Reported) Current Medications: Current Medications Sig/Ira Start time Last Medication Dose Route Stop Time Status Admin Acetaminophen 650 MG .STK-MED ONE 09/25 2129 DC PO 09/25 2130 Acetaminophen 650 MG Q6P PRN 09/22 1600 AC 09/25 PO 213 Al Hydroxide/Mg 30 ML Q4-6 PRN PRN 09/22 1645 AC Hydroxide PO Alprazolam 0.5 MG DAILY PRN 09/25 211 AC 09/25 PO 10/02 Amiodarone HCl 100 MG DAILY 09/23 1000 AC 09/25 PO 0809 Apixaban 2.5 MG BID 09/22 2200 AC 09/25 PO 2131 Atorvastatin Calcium 10 MG 1700 09/23 1700 AC 09/25 PO 1818 Benzocaine/Menthol 1 CELIA Q2P PRN 09/24 0615 AC 09/24 PO 1502 Bupropion HCl 100 MG DAILY 09/23 1000 AC 09/25 PO 0922 Calcium/Vitamin D 500 MG DAILY 09/22 1929 AC 09/25 PO 0922 Ceftriaxone Sodium 1,000 MG Q24H 09/22 1506 DC 09/24 IV 1433 Dicyclomine HCl 20 MG 4 TIMES/DAY 09/22 1800 AC 09/25 PO 2131 Escitalopram Oxalate 10 MG DAILY 09/23 1000 AC 09/25 PO 0922 Insulin Aspart 0 TIDAC/HS 09/23 0800 AC 09/25 SC 1800 Insulin Detemir 25 UNITS 1/2H BEFOR/BREAKFAST 09/26 0700 DC SC Insulin Detemir 25 UNITS 1/2H BEFOR/BREAKFAST 09/25 0930 AC 09/26 SC 0630 Metoprolol Succinate 12.5 MG DAILY 09/23 1000 AC 09/25 PO 0809 Metronidazole 500 MG IQ8 09/22 1600 DC 09/25 N/A 1 UNIT IV 0801 Morphine Sulfate 2 MG Q4P PRN 09/22 1900 AC 09/24 IV 2125 Mycophenolate Mofetil 1,000 MG BID 09/22 2200 AC 09/25 PO 2131 Tacrolimus 2 MG 00 09/24 0600 AC 09/26 PO 0537 Tacrolimus 1.5 MG 09/24 0600 AC 09/26 PO 0536 Vancomycin HCl 1,000 MG ONCE ONE 09/25 1315 DC 09/25 Dextrose/Water 250 ML IV 09/25 1414 1501 Review of Systems Review of Systems: Patient denies headaches or dizziness. Patient denies new shortness of breath cough chest pain or hemoptysis. Patient denies nausea vomiting abdominal pain or blood loss. Patient denies dysuria or hematuria. 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 Surgical History Surgical History: RENAL TRANSPLANT right and left toe amputations secondary to IDDM Family History Relations & Conditions If Any: MOTHER FH: diabetes mellitus Myasthenia gravis FATHER FH myocardial infarction male first degree age known FH: diabetes mellitus Relation not specified for: *No pertinent family history Psychosocial History Smoking Status: Never Smoked Exam & Diagnostic Data Vital Signs and I&O Vital Signs Date Time Temp Pulse Resp B/P B/P Pulse O2 O2 Flow FiO2 Mean Ox Delivery Rate 09/25 2300 98.8 62 20 152/70 95 09/25 1600 95 Room Air 09/25 1511 99.3 65 20 110/62 95 Room Air 09/25 0934 70 142/60 09/25 0809 72 184/76 09/25 0809 72 184/76 09/25 0806 72 09/25 0800 96 Room Air Intake & Output 09/26 0800 09/26 0000 09/25 1600 Intake Total 700 738 4011 Output Total 300 451 250 Balance -60 299 8600 Intake, IV 250 130 Intake, Oral 258 340 7150 Number 1 Bowel Movements Output, Stool 1 Output, Urine 300 450 250 Patient 197 lb Weight Weight Bed scale Measurement Method Gen.: in NAD ENT: Sclera anicteric Chest: Normal respiratory effort, decreased breath sounds Cor: RRR, no extra sounds Abdomen: Soft, bowel sounds present, no tenderness, no rebound Extremities: Without clubbing, cyanosis, or asymmetric edema Neurology: Alert and oriented 3, no gross deficit Last 48 Hours of Lab Results: Laboratory Tests 09/26 09/25 0647 0630 Chemistry Sodium (137 - 145 mmol/L) Pending 133 L Potassium (3.5 - 5.1 mmol/L) Pending 4.1 Chloride (98 - 107 mmol/L) Pending 100 Carbon Dioxide (22 - 30 mmol/L) Pending 20 L Anion Gap (5 - 16) Pending 14 BUN (9 - 20 mg/dL) 43 H Creatinine (0.7 - 1.2 mg/dL) 1.8 H Estimated GFR (>60 ml/min) 37 L BUN/Creatinine Ratio (7 - 25 %) 23.9 Hematology CBC w Diff Pending MAN DIFF ORDERED WBC (4.8 - 10.8 /CUMM) Pending 1.7 L RBC (4.70 - 6.10 /CUMM) Pending 3.03 L Hgb (14.0 - 18.0 G/DL) Pending 8.4 L Hct (42 - 52 %) Pending 25.4 L MCV (80.0 - 94.0 FL) Pending 83.7 MCH (27.0 - 31.0 PG) Pending 27.9 MCHC (33.0 - 37.0 G/DL) Pending 33.3 RDW (11.5 - 14.5 %) Pending 13.9 Plt Count (130 - 400 /CUMM) Pending 195 MPV (7.4 - 10.4 FL) Pending 8.5 Gran % (42.2 - 75.2 %) 47.0 Lymphocytes % (20.5 - 51.1 %) 16.4 L Monocytes % (1.7 - 9.3 %) 30.5 H Eosinophils % (0 - 5 %) 2.8 Basophils % (0.0 - 2.0 %) 3.3 H Absolute Granulocytes (1.4 - 6.5 /CUMM) 0.8 L Segmented Neutrophils (42.2 - 75.2 %) 45 Band Neutrophils (0.0 - 5.0 %) 5 Absolute Lymphocytes (1.2 - 3.4 /CUMM) 0.3 L Lymphocytes (20.5 - 51.1 %) 16 L Monocytes (1.7 - 9.3 %) 30 H Absolute Monocytes (0.10 - 0.60 /CUMM) 0.5 Eosinophils (0 - 5.0 %) 3 Absolute Eosinophils (0.0 - 0.7 /CUMM) 0 Basophils (0.0 - 2.0 %) 1 Absolute Basophils (0.0 - 0.2 /CUMM) 0.1 Platelet Estimate (ADEQUATE) ADEQUATE Hypochromic-Microcytic 1+ Poikilocytosis 1+ Anisocytosis 1+ Toxicology Vancomycin Trough (10.0 - 20.0 ug/mL) 15.0 Random Vancomycin Pending Blood cultures-MRSA Review the records-patient has demonstrated a low white blood cell count in the past Assessment/Plan Assessment: 1. hematologic status a. Neutropenia/leukopenia-patient has been leukopenic in the past. His diminished white count is likely multifactorial including drug-induced and sepsis-induced. There is an unclear role at this juncture for introduction of g -csf. I have a low suspicion that this represents a primary hematologic process. Recommend- Follow CBC Continue neutropenic precautions Peripheral blood for flow cytometry Folinic acid 25 mg/day orally for 7 days b. Anemia-patient is aware of chronic anemia. Again his current drop in hematocrit is likely multifactorial. Recommend- Transfuse as clinically necessary Check stools for occult blood Check ferritin, folic acid and vitamin B12 levels May consider erythropoietin replacement therapy-check with renal service Discussed all of this with patient Recommendations: .. Consult Acknowledgment - Thank you for your consult request.
[2017-09-26 07:56] LABS: ABSOLUTE BASOPHIL COUNT 0 /CUMM (0.0-0.2); ABSOLUTE EOSINOPHIL COUNT 0.1 /CUMM (0.0-0.7); ABSOLUTE GRANULOCYTE CT 0.9 /CUMM (1.4-6.5); ABSOLUTE LYMPH COUNT 0.4 /CUMM (1.2-3.4); ABSOLUTE MONOCYTE COUNT 0.5 /CUMM (0.10-0.60); BASOPHIL % 0.9 % (0.0-2.0); EOSINOPHIL % 4.5 % (0-5); GRANULOCYTE % 49.7 % (42.2-75.2); HEMATOCRIT 23.5 % (42-52); MEAN CORPUSCULAR HGB 27.8 PG (27.0-31.0); MEAN CORPUSCULAR HGB CONC 33.3 G/DL (33.0-37.0); MEAN CORPUSCULAR VOLUME 83.5 FL (80.0-94.0); MEAN PLATELET VOLUME 8.6 FL (7.4-10.4); PLATELET COUNT 212 /CUMM (130-400); RBC DISTRIBUTION WIDTH 13.8 % (11.5-14.5); RED BLOOD CELL CT 2.81 /CUMM (4.70-6.10); WHITE BLOOD CELL COUNT 1.9 /CUMM (4.8-10.8)
--- NOTE | 2017-09-26 09:19 | PN- Pulmonary ---
See Addendum Subjective HPI/Critical Care Issues: Events and data reviewed Stable Low wbc count noted fatigue Afebrile one episode of diarrhea Objective Current Medications: Current Medications Sig/Ira Start time Last Medication Dose Route Stop Time Status Admin Acetaminophen 650 MG .STK-MED ONE 09/25 2129 DC PO 09/25 2130 Acetaminophen 650 MG Q6P PRN 09/22 1600 AC 09/25 PO 2131 Al Hydroxide/Mg 30 ML Q4-6 PRN PRN 09/22 1645 AC Hydroxide PO Alprazolam 0.5 MG DAILY PRN 09/25 2115 AC 09/25 PO 10/02 2113 213 Amiodarone HCl 100 MG DAILY 09/23 1000 AC 09/26 PO 0848 Apixaban 2.5 MG BID 09/22 2200 AC 09/26 PO 0848 Atorvastatin Calcium 10 MG 1700 09/23 1700 AC 09/25 PO 1818 Benzocaine/Menthol 1 CELIA Q2P PRN 09/24 0615 AC 09/24 PO 1502 Bupropion HCl 100 MG DAILY 09/23 1000 AC 09/26 PO 0849 Calcium/Vitamin D 500 MG DAILY 09/22 1929 AC 09/26 PO 0849 Ceftriaxone Sodium 1,000 MG Q24H 09/22 1506 DC 09/24 IV 1433 Dicyclomine HCl 20 MG 4 TIMES/DAY 09/22 1800 AC 09/26 PO 0848 Escitalopram Oxalate 10 MG DAILY 09/23 1000 AC 09/26 PO 0848 Insulin Aspart 0 TIDAC/HS 09/23 0800 AC 09/25 SC 1800 Insulin Detemir 25 UNITS 1/2H BEFOR/BREAKFAST 09/26 0700 DC SC Insulin Detemir 25 UNITS 1/2H BEFOR/BREAKFAST 09/25 0930 AC 09/26 SC 0630 Metoprolol Succinate 12.5 MG DAILY 09/23 1000 AC 09/26 PO 0849 Metronidazole 500 MG IQ8 09/22 1600 DC 09/25 N/A 1 UNIT IV 0801 Morphine Sulfate 2 MG Q4P PRN 09/22 1900 AC 09/24 IV 2125 Mycophenolate Mofetil 1,000 MG BID 09/22 2200 AC 09/26 PO 0848 Tacrolimus 2 MG 0600 09/24 0600 AC 09/26 PO 0537 Tacrolimus 1.5 MG 0600 09/24 0600 AC 09/26 PO 0536 Vancomycin HCl 1,000 MG ONCE ONE 09/25 1315 DC 09/25 Dextrose/Water 250 ML IV 09/25 1414 1501 Vital Signs & I&O Last 24 Hrs of Vitals and I&O: Vital Signs Date Time Temp Pulse Resp B/P B/P Pulse O2 O2 Flow FiO2 Mean Ox Delivery Rate 09/26 0849 66 152/68 09/26 0848 66 152/68 09/26 0600 99.5 66 20 152/68 94 09/25 2300 98.8 62 20 152/70 95 09/25 1600 95 Room Air 09/25 1511 99.3 65 20 110/62 95 Room Air 09/25 0934 70 142/60 Intake & Output 09/26 1600 09/26 0800 09/26 0000 Intake Total 240 750 Output Total 300 451 Balance -60 299 Intake, IV 250 Intake, Oral 240 500 Output, Stool 1 Output, Urine 300 450 Patient 198 lb Weight Weight Bed scale Measurement Method Laboratory Tests 09/26 09/25 0647 0630 Chemistry Sodium (137 - 145 mmol/L) 135 L 133 L Potassium (3.5 - 5.1 mmol/L) 4.3 4.1 Chloride (98 - 107 mmol/L) 100 100 Carbon Dioxide (22 - 30 mmol/L) 22 20 L Anion Gap (5 - 16) 12 14 BUN (9 - 20 mg/dL) 41 H 43 H Creatinine (0.7 - 1.2 mg/dL) 1.5 H 1.8 H Estimated GFR (>60 ml/min) 46 L 37 L BUN/Creatinine Ratio (7 - 25 %) 23.9 Hematology CBC w Diff MAN DIFF ORDERED MAN DIFF ORDERED WBC (4.8 - 10.8 /CUMM) 1.9 L 1.7 L RBC (4.70 - 6.10 /CUMM) 2.81 L 3.03 L Hgb (14.0 - 18.0 G/DL) 7.8 L 8.4 L Hct (42 - 52 %) 23.5 L 25.4 L MCV (80.0 - 94.0 FL) 83.5 83.7 MCH (27.0 - 31.0 PG) 27.8 27.9 MCHC (33.0 - 37.0 G/DL) 33.3 33.3 RDW (11.5 - 14.5 %) 13.8 13.9 Plt Count (130 - 400 /CUMM) 212 195 MPV (7.4 - 10.4 FL) 8.6 8.5 Gran % (42.2 - 75.2 %) 49.7 47.0 Lymphocytes % (20.5 - 51.1 %) 18.5 L 16.4 L Monocytes % (1.7 - 9.3 %) 26.4 H 30.5 H Eosinophils % (0 - 5 %) 4.5 2.8 Basophils % (0.0 - 2.0 %) 0.9 3.3 H Absolute Granulocytes (1.4 - 6.5 /CUMM) 0.9 L 0.8 L Segmented Neutrophils (42.2 - 75.2 %) 49 45 Band Neutrophils (0.0 - 5.0 %) 5 Absolute Lymphocytes (1.2 - 3.4 /CUMM) 0.4 L 0.3 L Lymphocytes (20.5 - 51.1 %) 20 L 16 L Monocytes (1.7 - 9.3 %) 28 H 30 H Absolute Monocytes (0.10 - 0.60 /CUMM) 0.5 0.5 Eosinophils (0 - 5.0 %) 3 3 Absolute Eosinophils (0.0 - 0.7 /CUMM) 0.1 0 Basophils (0.0 - 2.0 %) 1 Absolute Basophils (0.0 - 0.2 /CUMM) 0 0.1 Platelet Estimate (ADEQUATE) VERIFIED BY SMEAR ADEQUATE Normocytic RBCs VERIFIED Normochromic RBCs VERIFIED Hypochromic-Microcytic 1+ Poikilocytosis 1+ Anisocytosis 1+ Toxicology Vancomycin Trough (10.0 - 20.0 ug/mL) 15.0 Random Vancomycin (ug/ml) 19.5 Microbiology Date/Time Procedure - Status Source Growth 09/25 2127 Blood Culture - RES BLOOD 09/24 2014 Blood Culture - RES BLOOD 09/24 174 Clostridium difficile Toxin A & B - COMP STOOL 09/23 184 Blood Culture - RES BLOOD 09/23 1810 Blood Culture - RES BLOOD Impression/Plan Impression/Plan Impression/Plan: General Appearance: well developed/nourished, alert, awake, anxious, mild distress Head: atraumatic, normal appearance Eyes: Bilateral: normal appearance, PERRL, EOMI. Ears, Nose, Throat: normal pharynx, normal ENT inspection, hearing grossly normal Neck: normal inspection, supple, full range of motion, no midline tenderness Respiratory: normal breath sounds, chest non-tender, no respiratory distress, quiet respiration, lungs clear Cardiovascular: normal peripheral pulses, irregularly irregular, norml femoral pulses equa Peripheral Pulses: 4+ carotid (R), 4+ carotid (L) Gastrointestinal: normal bowel sounds, soft, non-tender, no organomegaly Back: normal inspection, normal range of motion, no vertebral tenderness Extremities: no edema, pelvis stable,s/p debridement and in dressing Neurologic/Psych: no motor/sensory deficits, awake, alert, oriented x 3, normal mood/affect, 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 Lymphatic: no anterior cervical fortunato avf intact IMPRESSION This is a gentleman with s/p renal transplant with infected toe with osteo s/p surg recently with amputation and sub delayed closure who had ecoli and staph was dcd recently off abx as his stump was clean and all his infected tissue had been excised now with * Infected foot with fever in a pt who is immunosupp (recent toe amputation) s/p debridement and previous toe amputation- MRSA infection and sepsis * Resolving SHIRA with CKD s/p renal transplant, creat now 1.5 * On immunosupp rx, with leukopenia( see heme note ) and hence sig immunosupp * DM insulin requiring * PVD, previous history of stoke, and previous toe amputation * Previous secondary hyperparathyroid * Sig autonomic dysfnction on fludocortisone * Pafib on eliquis (in sinus on amiodarone) * Depression and anxiety * Peripheral neuropathy * Mild ekg changes with slight elevated troponin stable * Mild delirium now stable REC * ID and Podiatry and renal following * IV abx per ID * See Onc note * Send tacrolimus level [facility] to [facility] (ask lab to facilitate this) * EKG monitoring per cardio * Keep sugars at 150 or below with sliding scale * COnt immunosupp rx * Reduce dose of eloquis to 2.5 bid as he has ckd and observe * Cont metoprolol, statin, amio, antidepressants * Start gentle ivf this pm at 6 pm in anticipation of angio in am with normal saline at 75 cc Vascular consult - please call and make sure pt should get angio in am Will follow closely
--- NOTE | 2017-09-26 11:22 | PN- Infect Dx ---
Subjective Subjective: Afebrile. He feels improved with increased appetite and with minimal discomfort in the right foot. He has not had any further diarrhea. Objective Last 24 Hrs of Vital Signs/I&O Vital Signs Date Time Temp Pulse Resp B/P B/P Pulse O2 O2 Flow FiO2 Mean Ox Delivery Rate 09/26 0849 66 152/68 09/26 0848 66 152/68 09/26 0600 99.5 66 20 152/68 94 09/25 2300 98.8 62 20 152/70 95 09/25 1600 95 Room Air 09/25 1511 99.3 65 20 110/62 95 Room Air Intake & Output 09/26 1600 09/26 0800 09/26 0000 Intake Total 240 750 Output Total 300 451 Balance -60 299 Intake, IV 250 Intake, Oral 240 500 Output, Stool 1 Output, Urine 300 450 Patient 198 lb Weight Weight Bed scale Measurement Method Physical Exam Other Physical Findings: He appears comfortable in no acute distress Lungs are clear Heart regular rhythm with a 1/6 systolic ejection murmur Extremities right foot dressing intact Results Last 24 Hours of Lab Results: Laboratory Tests 09/26 646 Chemistry Sodium (137 - 145 mmol/L) 135 L Potassium (3.5 - 5.1 mmol/L) 4.3 Chloride (98 - 107 mmol/L) 100 Carbon Dioxide (22 - 30 mmol/L) 22 Anion Gap (5 - 16) 12 BUN (9 - 20 mg/dL) 41 H Creatinine (0.7 - 1.2 mg/dL) 1.5 H Estimated GFR (>60 ml/min) 46 L Hematology CBC w Diff MAN DIFF ORDERED WBC (4.8 - 10.8 /CUMM) 1.9 L RBC (4.70 - 6.10 /CUMM) 2.81 L Hgb (14.0 - 18.0 G/DL) 7.8 L Hct (42 - 52 %) 23.5 L MCV (80.0 - 94.0 FL) 83.5 MCH (27.0 - 31.0 PG) 27.8 MCHC (33.0 - 37.0 G/DL) 33.3 RDW (11.5 - 14.5 %) 13.8 Plt Count (130 - 400 /CUMM) 212 MPV (7.4 - 10.4 FL) 8.6 Gran % (42.2 - 75.2 %) 49.7 Lymphocytes % (20.5 - 51.1 %) 18.5 L Monocytes % (1.7 - 9.3 %) 26.4 H Eosinophils % (0 - 5 %) 4.5 Basophils % (0.0 - 2.0 %) 0.9 Absolute Granulocytes (1.4 - 6.5 /CUMM) 0.9 L Segmented Neutrophils (42.2 - 75.2 %) 49 Absolute Lymphocytes (1.2 - 3.4 /CUMM) 0.4 L Lymphocytes (20.5 - 51.1 %) 20 L Monocytes (1.7 - 9.3 %) 28 H Absolute Monocytes (0.10 - 0.60 /CUMM) 0.5 Eosinophils (0 - 5.0 %) 3 Absolute Eosinophils (0.0 - 0.7 /CUMM) 0.1 Absolute Basophils (0.0 - 0.2 /CUMM) 0 Platelet Estimate (ADEQUATE) VERIFIED BY SMEAR Normocytic RBCs VERIFIED Normochromic RBCs VERIFIED Toxicology Random Vancomycin (ug/ml) 19.5 Last 24 Hours of Joel Results: Blood cultures September 23 negative Blood cultures September 24 negative Stool C. difficile September 24 negative Recent Imaging Studies: TESS September 25 reveals a mobile density on the left ventricular outflow tract of the aortic valve, suggesting the possibility of a vegetation Assessment/Plan ID Impression: Improved overall with no further fevers and with white blood cell count, though still neutropenic, increasing on Vancomycin now 4 days status post revisional partial first ray resection for a necrotic wound/osteomyelitis of the right foot , with his blood and OR cultures positive for MRSA. His echocardiogram suggests a vegetation on the aortic valve raising concern for endocarditis and a TESS will need to be done. His renal function appears to be improving but he is still above his baseline and, therefore, Vancomycin will still need to be dosed prn. As noted his white blood cell count is increasing and suspect this was secondary to sepsis and, possibly, his immunosuppressive medications. Suggestion: 1. Would pursue TESS 2. Further management of his right foot per Podiatry 3. Await possible angiogram in the a.m. 4. Recheck random Vanco level in the a.m. and re-dose with Vancomycin 1 g IV if less than 15
--- NOTE | 2017-09-26 12:37 | PN- Cardiology ---
Subjective Subjective: CV status stable; TTE results noted Objective Vital Signs and I&Os Vital Signs Date Time Temp Pulse Resp B/P B/P Pulse O2 O2 Flow FiO2 Mean Ox Delivery Rate 09/26 0849 66 152/68 09/26 0848 66 152/68 09/26 0600 99.5 66 20 152/68 94 09/25 2300 98.8 62 20 152/70 95 09/25 1600 95 Room Air 09/25 1511 99.3 65 20 110/62 95 Room Air Intake & Output 09/26 1600 09/26 0800 09/26 0000 09/25 1600 09/25 0809/25 0000 Intake Total 927 483 7478 200 950 Output Total 300 451 250 100 225 Balance -60 299 8600 100 725 Intake, IV 250 130 350 Intake, Oral 355 019 1793 200 600 Number 1 1 Bowel Movements Output, Stool 1 Output, Urine 300 450 250 100 225 Patient 198 lb 200 lb Weight Weight Bed scale Measurement Method Current Medications: Current Medications Sig/Ira Start time Last Medication Dose Route Stop Time Status Admin Acetaminophen 650 MG .STK-MED ONE 09/25 2129 DC PO 09/25 213 Acetaminophen 650 MG Q6P PRN 09/22 1600 AC 09/25 PO 2131 Al Hydroxide/Mg 30 ML Q4-6 PRN PRN 09/22 1645 AC Hydroxide PO Alprazolam 0.5 MG DAILY PRN 09/25 2115 AC 09/25 PO 10/02 211 213 Amiodarone HCl 100 MG DAILY 09/23 1000 AC 09/26 PO 0848 Apixaban 2.5 MG BID 09/22 2200 AC 09/26 PO 0848 Atorvastatin Calcium 10 MG 1700 09/23 1700 AC 09/25 PO 1818 Benzocaine/Menthol 1 CELIA Q2P PRN 09/24 0615 AC 09/24 PO 1502 Bupropion HCl 100 MG DAILY 09/23 1000 AC 09/26 PO 0849 Calcium/Vitamin D 500 MG DAILY 09/22 1929 AC 09/26 PO 0849 Dicyclomine HCl 20 MG 4 TIMES/DAY 09/22 1800 AC 09/26 PO 0848 Escitalopram Oxalate 10 MG DAILY 09/23 1000 AC 09/26 PO 0848 Insulin Aspart 0 TIDAC/HS 09/23 0800 AC 09/26 SC 1140 Insulin Detemir 25 UNITS 1/2H BEFOR/BREAKFAST 09/25 0930 AC 09/26 SC 0630 Metoprolol Succinate 12.5 MG DAILY 09/23 1000 AC 09/26 PO 0849 Morphine Sulfate 2 MG Q4P PRN 09/22 1900 AC 09/24 IV 2125 Mycophenolate Mofetil 1,000 MG BID 09/22 2200 AC 09/26 PO 0848 Tacrolimus 2 MG 09/24 0600 AC 09/26 PO 0537 Tacrolimus 1.5 MG 09/24 0600 AC 09/26 PO 0536 Vancomycin HCl 1,000 MG ONCE ONE 09/25 1315 DC 09/25 Dextrose/Water 250 ML IV 09/25 1414 1501 Results Last 48 Hrs of Labs/Mics: Laboratory Tests 09/26/17 0647: Anion Gap 12, Estimated GFR 46 L, CBC w Diff MAN DIFF ORDERED, RBC 2.81 L, MCV 83.5, MCH 27.8, MCHC 33.3, RDW 13.8, MPV 8.6, Gran % 49.7, Lymphocytes % 18.5 L , Monocytes % 26.4 H, Eosinophils % 4.5, Basophils % 0.9, Absolute Granulocytes 0.9 L, Segmented Neutrophils 49, Absolute Lymphocytes 0.4 L, Lymphocytes 20 L , Monocytes 28 H, Absolute Monocytes 0.5, Eosinophils 3, Absolute Eosinophils 0.1, Absolute Basophils 0, Platelet Estimate VERIFIED BY SMEAR, Normocytic RBCs VERIFIED, Normochromic RBCs VERIFIED, Random Vancomycin 19.5 09/25/17 0630: Anion Gap 14, Estimated GFR 37 L, BUN/Creatinine Ratio 23.9, CBC w Diff MAN DIFF ORDERED, RBC 3.03 L, MCV 83.7, MCH 27.9, MCHC 33.3, RDW 13.9, MPV 8.5, Gran % 47.0, Lymphocytes % 16.4 L, Monocytes % 30.5 H, Eosinophils % 2.8, Basophils % 3.3 H, Absolute Granulocytes 0.8 L, Segmented Neutrophils 45, Band Neutrophils 5, Absolute Lymphocytes 0.3 L, Lymphocytes 16 L, Monocytes 30 H, Absolute Monocytes 0.5, Eosinophils 3, Absolute Eosinophils 0, Basophils 1, Absolute Basophils 0.1, Platelet Estimate ADEQUATE, Hypochromic-Microcytic 1+, Poikilocytosis 1+, Anisocytosis 1+, Vancomycin Trough 15.0 Microbiology 09/24 1740 STOOL: Clostridium difficile Toxin A & B - COMP Assessment/Plan Assessment/Plan Assessment: 1. Minimally elevated troponin suggestive of type II MA 2. MRSA bacteremia with evidence of possible aortic valve vegetation on transthoracic echocardiogram 3. Osteomyelitis 4. Abnormal ECG 5. Status post renal transplant 6. Anemia 7. Mild hyponatremia Recommendations: -I discussed the results of the transthoracic echo cardiac exam with Eben Dickinson MD of the ID service -Transesophageal echocardiogram to be scheduled. Timing depending on when vascular interventions to be performed. -Please keep the patient nothing by mouth after midnight tonight in case the TESS can be performed tomorrow. If not, it will be performed on Tuesday. Continue telemetry? Yes
[2017-09-26 14:14] VITALS: BP 140/70
--- NOTE | 2017-09-26 14:20 | PN- Vascular Surgery ---
Surgical Brief Attending Note Brief Attending Note: Kidney function improving. I have him on the OR schedule tomorrow for an angiogram unless medically unfit to do so. Stop Beau worthington and tomorrow am. Thank you.
--- NOTE | 2017-09-26 14:41 | PN- Nephrology ---
Assessment/Plan Nephrology Assessment: 1. CKD stage III status post DDKT 2014 2. SHIRA - improved - likely hemodynamic/prerenal basis but also in the setting of MRSA bacteremia/endocarditis 3. MRSA aortic valve endocarditis with bacteremia 4. Necrotic wound/osteomyelitis right foot - for possible angiogram Suggestion: Can proceed with angiography with the following caveats: 1. Begin hydration the evening before contrast exposure using half-normal saline at 75 mL per hour and continuing for at least 6 hours after the exposure 2. N-acetylcysteine 600-1200 mg by mouth every 12 hours ordered so that he gets 2 doses before and 2 doses after contrast exposure 3. Use as little contrast as possible 4. Continue to monitor chemistries daily 5. Continue antirejection regimen at current dosing 6. Vancomycin dosing per levels (19.5 today) 7. Agree with need for a TESS Subjective Subjective: Patient seems fatigued but has no specific complaints today other than mild discomfort in his foot. He has considerable difficulty hearing because he does not have his hearing aid with him in the hospital. Renal function has improved significantly although still not at his baseline creatinine of ~1.1. He remains afebrile and WBC is slowly improving. Tacrolimus level drawn today and pending. Objective Vital Signs and I&Os Vital Signs Date Time Temp Pulse Resp B/P B/P Pulse O2 O2 Flow FiO2 Mean Ox Delivery Rate 09/26 1414 98.5 65 20 140/70 95 Room Air 09/26 0849 66 152/68 09/26 0848 66 152/68 09/26 0600 99.5 66 20 152/68 94 09/25 2300 98.8 62 20 152/70 95 09/25 1600 95 Room Air 09/25 1511 99.3 65 20 110/62 95 Room Air Intake & Output 09/26 1600 09/26 0400 09/25 1600 09/25 0400 09/24 1600 09/24 0400 Intake Total 552 325 3695 950 1080 120 Output Total 300 451 350 225 425 Balance 887 870 5408 725 655 120 Intake, IV 250 130 350 Intake, Oral 131 244 7872 600 1080 120 Number 1 1 1 0 Bowel Movements Output, Stool 1 Output, Urine 300 450 350 225 425 Patient 198 lb 200 lb 199 lb 199 lb Weight Weight Bed scale Measurement Method Physical Exam: General: Well-developed white male in NAD Skin: No rash or jaundice; multiple senile keratoses; no petechiae or splinter hemorrhages HEENT: Conjunctivae pale, sclerae anicteric, mucous membranes moist Neck: Without masses or thyromegaly, no supraclavicular or cervical adenopathy Chest: Clear to P&A Heart: Regular rate and rhythm without S3 or rub Abdomen: Soft and nontender without palpable masses or organomegaly Extremities: Without cyanosis or edema; right foot dressing intact Neuro: No focal findings, no asterixis or myoclonus Results Pertinent Lab Results: Laboratory Tests 09/26 09/25 0647 0630 Chemistry Sodium (137 - 145 mmol/L) 135 L 133 L Potassium (3.5 - 5.1 mmol/L) 4.3 4.1 Chloride (98 - 107 mmol/L) 100 100 Carbon Dioxide (22 - 30 mmol/L) 22 20 L Anion Gap (5 - 16) 12 14 BUN (9 - 20 mg/dL) 41 H 43 H Creatinine (0.7 - 1.2 mg/dL) 1.5 H 1.8 H Estimated GFR (>60 ml/min) 46 L 37 L BUN/Creatinine Ratio (7 - 25 %) 23.9 Ferritin (17.9 - 464 ng/mL) Pending Vitamin B12 (239 - 931 pg/mL) Pending Folate (2.76 - 20.0 ng/mL) Pending Hematology CBC w Diff MAN DIFF ORDERED MAN DIFF ORDERED WBC (4.8 - 10.8 /CUMM) 1.9 L 1.7 L RBC (4.70 - 6.10 /CUMM) 2.81 L 3.03 L Hgb (14.0 - 18.0 G/DL) 7.8 L 8.4 L Hct (42 - 52 %) 23.5 L 25.4 L MCV (80.0 - 94.0 FL) 83.5 83.7 MCH (27.0 - 31.0 PG) 27.8 27.9 MCHC (33.0 - 37.0 G/DL) 33.3 33.3 RDW (11.5 - 14.5 %) 13.8 13.9 Plt Count (130 - 400 /CUMM) 212 195 MPV (7.4 - 10.4 FL) 8.6 8.5 Gran % (42.2 - 75.2 %) 49.7 47.0 Lymphocytes % (20.5 - 51.1 %) 18.5 L 16.4 L Monocytes % (1.7 - 9.3 %) 26.4 H 30.5 H Eosinophils % (0 - 5 %) 4.5 2.8 Basophils % (0.0 - 2.0 %) 0.9 3.3 H Absolute Granulocytes (1.4 - 6.5 /CUMM) 0.9 L 0.8 L Segmented Neutrophils (42.2 - 75.2 %) 49 45 Band Neutrophils (0.0 - 5.0 %) 5 Absolute Lymphocytes (1.2 - 3.4 /CUMM) 0.4 L 0.3 L Lymphocytes (20.5 - 51.1 %) 20 L 16 L Monocytes (1.7 - 9.3 %) 28 H 30 H Absolute Monocytes (0.10 - 0.60 /CUMM) 0.5 0.5 Eosinophils (0 - 5.0 %) 3 3 Absolute Eosinophils (0.0 - 0.7 /CUMM) 0.1 0 Basophils (0.0 - 2.0 %) 1 Absolute Basophils (0.0 - 0.2 /CUMM) 0 0.1 Platelet Estimate (ADEQUATE) VERIFIED BY SMEAR ADEQUATE Normocytic RBCs VERIFIED Normochromic RBCs VERIFIED Hypochromic-Microcytic 1+ Poikilocytosis 1+ Anisocytosis 1+ Toxicology Vancomycin Trough (10.0 - 20.0 ug/mL) 15.0 Random Vancomycin (ug/ml) 19.5 09/24 09/24 0649 0600 Chemistry Sodium (137 - 145 mmol/L) 134 L Potassium (3.5 - 5.1 mmol/L) 4.3 Chloride (98 - 107 mmol/L) 100 Carbon Dioxide (22 - 30 mmol/L) 20 L Anion Gap (5 - 16) 14 BUN (9 - 20 mg/dL) 47 H Creatinine (0.7 - 1.2 mg/dL) 1.9 H Estimated GFR (>60 ml/min) 35 L BUN/Creatinine Ratio (7 - 25 %) 24.7 Hematology CBC w Diff MAN DIFF ORDERED WBC (4.8 - 10.8 /CUMM) 1.5 L RBC (4.70 - 6.10 /CUMM) 3.16 L Hgb (14.0 - 18.0 G/DL) 8.9 L Hct (42 - 52 %) 26.5 L MCV (80.0 - 94.0 FL) 84.0 MCH (27.0 - 31.0 PG) 28.0 MCHC (33.0 - 37.0 G/DL) 33.4 RDW (11.5 - 14.5 %) 13.9 Plt Count (130 - 400 /CUMM) 207 MPV (7.4 - 10.4 FL) 8.5 Gran % (42.2 - 75.2 %) 55.0 Lymphocytes % (20.5 - 51.1 %) 12.7 L Monocytes % (1.7 - 9.3 %) 28.5 H Eosinophils % (0 - 5 %) 1.9 Basophils % (0.0 - 2.0 %) 1.9 Absolute Granulocytes (1.4 - 6.5 /CUMM) 0.8 L Segmented Neutrophils (42.2 - 75.2 %) 46 Band Neutrophils (0.0 - 5.0 %) 8 H Absolute Lymphocytes (1.2 - 3.4 /CUMM) 0.2 L Lymphocytes (20.5 - 51.1 %) 23 Monocytes (1.7 - 9.3 %) 22 H Absolute Monocytes (0.10 - 0.60 /CUMM) 0.4 Eosinophils (0 - 5.0 %) 1 Absolute Eosinophils (0.0 - 0.7 /CUMM) 0 Absolute Basophils (0.0 - 0.2 /CUMM) 0 Platelet Estimate (ADEQUATE) ADEQUATE Hypochromic-Microcytic 2+ Poikilocytosis 2+ Anisocytosis 2+ Ovalocytes 1+ Toxicology Random Vancomycin (ug/ml) 11.7 Cancelled
--- NOTE | 2017-09-26 16:14 | Cons- Endocrinology ---
General Information and HPI Consulting Request Date of Consult: 09/26/17 Requested By: medical team Reason for Consult: management of uncontrolled diabetes Source of Information: patient, old records Exam Limitations: no limitations History of Present Illness: Patient is a 71-year-old male with a PMH significant for ESRD status post renal transplant on tacrolimus and CellCept, paroxysmal atrial fibrillation on Eliquis , HTN, HLD, CVA, DM type 2, with recent admission to [facility] for osteomyelitis, status post amputation of the toes, was admitted for chronic right foot infection. I was asked to see him for help DM managment. At home, he was on Lantus 25 units daily in the morning and Novolog before meals ( 6 or 7 units before meals ). In hospital, he was put on Levemir 25 units daily and Novolog coverage before meals. His FSGs were 221, 145 and 205. He is going to have angiogram done tomorrow. He will be kept NPO after midnight. In addition, he will be on NS 75 ml/hour. Allergies/Medications Allergies: Coded Allergies: NO KNOWN ALLERGIES (NONE 09/09/17) Home Med List: Alprazolam 0.5 MG TABLET 1 TAB PO DAILY PRN Anxiety (Reported) Amiodarone (Cordarone) 200 MG TAB 0.5 TAB PO DAILY A.fib (Reported) Apixaban (Eliquis) 5 MG TABLET 1 TAB PO BID Blood Thinner (Reported) Aspirin (Ecotrin*) 81 MG TABLET.DR 1 TAB PO DAILY Heart Health (Reported) Atorvastatin Calcium 10 MG TABLET 1 TAB PO DAILY cholesterol (Reported) Bupropion HCl 100 MG TABLET 1 TAB PO DAILY pain (Reported) Calcitriol 0.25 MCG CAPSULE 1 CAP PO DAILY Bone health (Reported) Calcium (Elemental-Fr Calcarb) (Calcium Antacid) 400 MG CALCIUM (1,000 MG) TAB.CHEW 1,000 MG PO TID Supplement (Reported) Cholecalciferol (Vitamin D3) (Vitamin D-3) 2,000 UNIT TABLET 1 TAB PO DAILY Supplement (Reported) Coenzyme Q10 100 MG CAPSULE 1 CAP PO DAILY Supplement (Reported) Escitalopram Oxalate (Lexapro) 20 MG TABLET 1 TAB PO QPM Anxiety (Reported) Fludrocortisone Acetate 0.1 MG TABLET 1 TAB PO DAILY SUPPLEMENT (Reported) Hydroxychloroquine Sulfate 200 MG TABLET 1 TAB PO DAILY . (Reported) Insulin Glargine,Hum.rec.anlog (Lantus Solostar) 100 UNIT/ML (3 ML) INSULN.PEN 25 UNIT SC DAILY AC Blood sugar (Reported) 26 U daily Insulin Lispro (Humalog) 100 UNIT/ML CARTRIDGE 0 SC TIDAC/HS Blood sugar ( Reported) Please take as follow:\ Blood sugar 80-150 mg/dl: none 151-200 mg/dl: 2 U 201-250 mg/dl: 4 U 251-300 mg/dl: 6 U 301-350 mg/dl: 8 U 351-400 mg/dl: 10 U more than 401 mg/dl: 12 U and call Metoprolol Succ XL (Toprol XL) 25 MG TAB 0.5 TAB PO DAILY HEART HEALTH ( Reported) Mycophenolate Mofetil (Cellcept) 250 MG CAPSULE 4 CAP PO BID Immunotherapy ( Reported) Tacrolimus 1 MG CAPSULE 2 CAP PO DAILY KIDNEY TRANSPLANT (Reported) 3.5MG TOTAL DAILY OF ENVARSUS XR (1MG TABS X2 AND 0.75MG TABS X2) Tacrolimus (Envarsus XR) 0.75 MG TAB.ER.24H 2 TAB PO DAILY TRANSPLANT ( Reported) Vit A,C & E/Lutein/Minerals (Ocuvite With Lutein Tablet) 1,000-60-2 TABLET 1 TAB PO DAILY Supplement (Reported) Review of Systems Review of Systems Constitutional: Reports: see HPI, malaise. Cardiovascular: Denies: chest pain. Respiratory: Denies: short of breath. GI: Denies: abdominal pain. Musculoskeletal: Reports: see HPI (chronic right foot infection). Hematologic/Endocrine: Denies: polyuria, polydipsia. Past History Travel History Traveled to [place] past 21 day No Medical History Neurological: STROKE EENT: NONE, glaucoma Cardiovascular: AFIB, hypertension, hyperlipidemia, AFIB (ON COUMADIN) Respiratory: NONE Gastrointestinal: NONE Hepatic: NONE Renal: ESRD on HD (in the past), renal transplant Musculoskeletal: fracture, R ARM FRACTURE Psychiatric: NONE Endocrine: diabetes type 2 Blood Disorders: NONE Cancer(s): NONE SYSTEM SPECIALIST/Reproductive: NONE Surgical History Surgical History: RENAL TRANSPLANT right and left toe amputations secondary to IDDM Family History Relations & Conditions If Any: MOTHER FH: diabetes mellitus Myasthenia gravis FATHER FH myocardial infarction male first degree age known FH: diabetes mellitus Relation not specified for: *No pertinent family history Psychosocial History Smoking Status: Never Smoked Exam & Diagnostic Data Last 24 Hrs of Vital Signs/I&O Vital Signs Date Time Temp Pulse Resp B/P B/P Pulse O2 O2 Flow FiO2 Mean Ox Delivery Rate 09/26 2212 99.4 73 24 144/82 95 09/26 1414 98.5 65 20 140/70 95 Room Air 09/26 0849 66 152/68 09/26 0848 66 152/68 09/26 0600 99.5 66 20 152/68 94 09/25 2300 98.8 62 20 152/70 95 Intake & Output 09/26 1600 09/26 0800 09/26 0000 Intake Total 700 240 750 Output Total 300 451 Balance 700 -60 299 Intake, IV 250 Intake, Oral 700 240 500 Number 1 Bowel Movements Output, Stool 1 Output, Urine 300 450 Patient 198 lb Weight Weight Bed scale Measurement Method Physical Exam General Appearance: no apparent distress Neck: normal inspection Respiratory: decreased breath sounds Cardiovascular: irregularly irregular Gastrointestinal: soft, non-tender Extremities: no edema Labs/Joel Results: Laboratory Tests 09/26 1754 Hematology CBC w Diff MAN DIFF ORDERED WBC (4.8 - 10.8 /CUMM) 1.9 L RBC (4.70 - 6.10 /CUMM) 3.02 L Hgb (14.0 - 18.0 G/DL) 8.4 L Hct (42 - 52 %) 25.2 L MCV (80.0 - 94.0 FL) 83.4 MCH (27.0 - 31.0 PG) 27.7 MCHC (33.0 - 37.0 G/DL) 33.2 RDW (11.5 - 14.5 %) 14.0 Plt Count (130 - 400 /CUMM) 227 MPV (7.4 - 10.4 FL) 8.4 Gran % (42.2 - 75.2 %) 40.9 L Lymphocytes % (20.5 - 51.1 %) 20.6 Monocytes % (1.7 - 9.3 %) 30.8 H Eosinophils % (0 - 5 %) 4.9 Basophils % (0.0 - 2.0 %) 2.8 H Absolute Granulocytes (1.4 - 6.5 /CUMM) 0.8 L Segmented Neutrophils (42.2 - 75.2 %) 34 L Band Neutrophils (0.0 - 5.0 %) 4 Absolute Lymphocytes (1.2 - 3.4 /CUMM) 0.4 L Lymphocytes (20.5 - 51.1 %) 17 L Monocytes (1.7 - 9.3 %) 41 H Absolute Monocytes (0.10 - 0.60 /CUMM) 0.6 Eosinophils (0 - 5.0 %) 4 Absolute Eosinophils (0.0 - 0.7 /CUMM) 0.1 Absolute Basophils (0.0 - 0.2 /CUMM) 0.1 Platelet Estimate (ADEQUATE) VERIFIED BY SMEAR Normochromic RBCs VERIFIED Poikilocytosis FEW Ovalocytes FEW Other Body Source Fld Total RBCs Counted (%) 100 09/26 09/26 0647 0600 Chemistry Sodium (137 - 145 mmol/L) 135 L Potassium (3.5 - 5.1 mmol/L) 4.3 Chloride (98 - 107 mmol/L) 100 Carbon Dioxide (22 - 30 mmol/L) 22 Anion Gap (5 - 16) 12 BUN (9 - 20 mg/dL) 41 H Creatinine (0.7 - 1.2 mg/dL) 1.5 H Estimated GFR (>60 ml/min) 46 L Iron (49 - 181 ug/dL) 28 L Ferritin (17.9 - 464 ng/mL) 1760.0 H Vitamin B12 (239 - 931 pg/mL) > 1000 H Folate (2.76 - 20.0 ng/mL) 12.2 Hematology CBC w Diff MAN DIFF ORDERED WBC (4.8 - 10.8 /CUMM) 1.9 L RBC (4.70 - 6.10 /CUMM) 2.81 L Hgb (14.0 - 18.0 G/DL) 7.8 L Hct (42 - 52 %) 23.5 L MCV (80.0 - 94.0 FL) 83.5 MCH (27.0 - 31.0 PG) 27.8 MCHC (33.0 - 37.0 G/DL) 33.3 RDW (11.5 - 14.5 %) 13.8 Plt Count (130 - 400 /CUMM) 212 MPV (7.4 - 10.4 FL) 8.6 Gran % (42.2 - 75.2 %) 49.7 Lymphocytes % (20.5 - 51.1 %) 18.5 L Monocytes % (1.7 - 9.3 %) 26.4 H Eosinophils % (0 - 5 %) 4.5 Basophils % (0.0 - 2.0 %) 0.9 Absolute Granulocytes (1.4 - 6.5 /CUMM) 0.9 L Segmented Neutrophils (42.2 - 75.2 %) 49 Absolute Lymphocytes (1.2 - 3.4 /CUMM) 0.4 L Lymphocytes (20.5 - 51.1 %) 20 L Monocytes (1.7 - 9.3 %) 28 H Absolute Monocytes (0.10 - 0.60 /CUMM) 0.5 Eosinophils (0 - 5.0 %) 3 Absolute Eosinophils (0.0 - 0.7 /CUMM) 0.1 Absolute Basophils (0.0 - 0.2 /CUMM) 0 Platelet Estimate (ADEQUATE) VERIFIED BY SMEAR Normocytic RBCs VERIFIED Normochromic RBCs VERIFIED Toxicology Random Vancomycin (ug/ml) 19.5 Tacrolimus Pending Assessment/Plan Assessment/Plan Patient is a 71-year-old male with a PMH significant for ESRD status post renal transplant on tacrolimus and CellCept, paroxysmal atrial fibrillation on Eliquis , HTN, HLD, CVA, DM type 2, with recent admission to [facility] for osteomyelitis, status post amputation of the toes, was admitted for chronic right foot infection. He is going to have angiogram done tomorrow. He will be kept NPO after midnight. In addition, he will be on NS 75 ml/hour. Plan: When patient eats regular diabetic meals: 1. continue Levemir 25 units daily in the morning; 2. Novolog coverage before meals FSG 80-150, 4 units 151-200, 5 units 201-250, 6 units 251-300, 8 units 301-350, 10 units 351-400, 12 units > 400, 14 units 3. Novolog coverage at bedtime FSG < 250, no coverage 251-300, 2 units 301-350, 3 units 351-400, 4 units > 400, 5 units When he is kept NPO and receiving NS at 75 ml/hour 1. Levemir 13 units daily in the morning; hold it if FSH is < 160; 2. Novolog coverage every 4 hours FSG < 200, no coverage 200-250, 2 units 251-300, 3 units 301-350, 4 units 351-400, 6 units > 400, 8 units Monitor FSGs. will follow. Please call if there are any questions regading to the insulin orders. Consult Acknowledgment - Thank you for your consult request.
[2017-09-26 19:16] LABS: ABSOLUTE BASOPHIL COUNT 0.1 /CUMM (0.0-0.2); ABSOLUTE EOSINOPHIL COUNT 0.1 /CUMM (0.0-0.7); ABSOLUTE GRANULOCYTE CT 0.8 /CUMM (1.4-6.5); ABSOLUTE LYMPH COUNT 0.4 /CUMM (1.2-3.4); ABSOLUTE MONOCYTE COUNT 0.6 /CUMM (0.10-0.60); BASOPHIL % 2.8 % (0.0-2.0); EOSINOPHIL % 4.9 % (0-5); HEMATOCRIT 25.2 % (42-52); MEAN CORPUSCULAR HGB 27.7 PG (27.0-31.0); MEAN CORPUSCULAR HGB CONC 33.2 G/DL (33.0-37.0); MEAN CORPUSCULAR VOLUME 83.4 FL (80.0-94.0); MEAN PLATELET VOLUME 8.4 FL (7.4-10.4); PLATELET COUNT 227 /CUMM (130-400); RED BLOOD CELL CT 3.02 /CUMM (4.70-6.10); WHITE BLOOD CELL COUNT 1.9 /CUMM (4.8-10.8)
[2017-09-26 19:24] LABS: GRANULOCYTE % 40.9 % (42.2-75.2)
[2017-09-26 22:13] VITALS: BP 144/82
--- NOTE | 2017-09-27 06:43 | PN- Hematology ---
Subjective Subjective: Patient agitated confused and restrained, unable to give history Objective Vital Signs and I&Os Vital Signs Date Time Temp Pulse Resp B/P B/P Pulse O2 O2 Flow FiO2 Mean Ox Delivery Rate 09/26 2212 99.4 73 24 144/82 95 09/26 1414 98.5 65 20 140/70 95 Room Air 09/26 0849 66 152/68 09/26 0848 66 152/68 Intake & Output 09/27 0800 09/27 0000 09/26 1600 09/26 0800 09/26 0000 09/25 1600 Intake Total 120 700 835 638 5957 Output Total 150 300 451 250 Balance -30 700 -60 299 8600 Intake, IV 250 130 Intake, Oral 120 700 142 429 2065 Number 1 1 Bowel Movements Output, Stool 1 Output, Urine 150 300 450 250 Patient 196 lb 198 lb Weight Weight Bed scale Measurement Method Gen.: Agitated ENT: Sclera anicteric Chest: Decreased breath sounds Cor: RRR, no extra sounds Abdomen: Soft, bowel sounds present, no tenderness, no rebound Extremities: Without clubbing, cyanosis, or asymmetric edema Neurology: Moves all 4s Current Medications: Current Medications Sig/Ira Start time Last Medication Dose Route Stop Time Status Admin Acetaminophen 650 MG Q6P PRN 09/22 1600 AC 09/25 PO 2131 Acetylcysteine 1,200 MG Q12 09/26 1615 AC 09/27 PO 09/27 2200 0400 Al Hydroxide/Mg 30 ML Q4-6 PRN PRN 09/22 1645 AC Hydroxide PO Alprazolam 0.5 MG DAILY PRN 09/25 2115 DC 09/25 PO 10/02 2113 2132 Amiodarone HCl 100 MG DAILY 09/23 1000 AC 09/26 PO 0848 Apixaban 2.5 MG BID 09/22 2200 DC 09/26 PO 0848 Atorvastatin Calcium 10 MG 1700 09/23 1700 AC 09/26 PO 1715 Benzocaine/Menthol 1 CELIA Q2P PRN 09/24 0615 AC 09/24 PO 1502 Bupropion HCl 100 MG DAILY 09/23 1000 AC 09/26 PO 0849 Calcium/Vitamin D 500 MG DAILY 09/22 1929 AC 09/26 PO 0849 Dextrose/Sodium 1,000 ML Q13H 09/26 1800 CAN Chloride IV Dextrose/Sodium 1,000 ML Q13H 09/26 1430 DC 09/26 Chloride IV 1432 Dicyclomine HCl 20 MG 4 TIMES/DAY 09/22 1800 AC 09/26 PO 205 Escitalopram Oxalate 10 MG DAILY 09/23 1000 AC 09/26 PO 0848 Folic Acid 2.5 MG DAILY 09/26 1345 AC 09/26 PO 10/02 1001 1715 Haloperidol 1 MG ONCE ONE 09/26 2245 DC 09/26 IM 09/26 2246 2304 Insulin Aspart 0 Q4 09/27 0200 AC SC Insulin Aspart 0 TIDAC/HS 09/23 0800 DC 09/26 SC 1717 Insulin Detemir 13 UNITS 8AM 09/27 0800 AC SC Insulin Detemir 25 UNITS 1/2H BEFOR/BREAKFAST 09/25 0930 DC 09/26 SC 0630 Metoprolol Succinate 12.5 MG DAILY 09/23 1000 AC 09/26 PO 0849 Morphine Sulfate 2 MG Q4P PRN 09/22 1900 AC 09/24 IV 2125 Mycophenolate Mofetil 1,000 MG BID 09/22 2200 AC 09/26 PO 205 Sodium Chloride 1,000 ML Q13H 09/26 1800 AC 09/26 IV 1810 Tacrolimus 2 MG 0600 09/24 0600 AC 09/27 PO 0541 Tacrolimus 1.5 MG 0600 09/24 0600 AC 09/27 PO 0541 Results Last 24 Hours of Lab Results: Laboratory Tests 09/26 1754 Hematology CBC w Diff MAN DIFF ORDERED WBC (4.8 - 10.8 /CUMM) 1.9 L RBC (4.70 - 6.10 /CUMM) 3.02 L Hgb (14.0 - 18.0 G/DL) 8.4 L Hct (42 - 52 %) 25.2 L MCV (80.0 - 94.0 FL) 83.4 MCH (27.0 - 31.0 PG) 27.7 MCHC (33.0 - 37.0 G/DL) 33.2 RDW (11.5 - 14.5 %) 14.0 Plt Count (130 - 400 /CUMM) 227 MPV (7.4 - 10.4 FL) 8.4 Gran % (42.2 - 75.2 %) 40.9 L Lymphocytes % (20.5 - 51.1 %) 20.6 Monocytes % (1.7 - 9.3 %) 30.8 H Eosinophils % (0 - 5 %) 4.9 Basophils % (0.0 - 2.0 %) 2.8 H Absolute Granulocytes (1.4 - 6.5 /CUMM) 0.8 L Segmented Neutrophils (42.2 - 75.2 %) 34 L Band Neutrophils (0.0 - 5.0 %) 4 Absolute Lymphocytes (1.2 - 3.4 /CUMM) 0.4 L Lymphocytes (20.5 - 51.1 %) 17 L Monocytes (1.7 - 9.3 %) 41 H Absolute Monocytes (0.10 - 0.60 /CUMM) 0.6 Eosinophils (0 - 5.0 %) 4 Absolute Eosinophils (0.0 - 0.7 /CUMM) 0.1 Absolute Basophils (0.0 - 0.2 /CUMM) 0.1 Platelet Estimate (ADEQUATE) VERIFIED BY SMEAR Normochromic RBCs VERIFIED Poikilocytosis FEW Ovalocytes FEW Other Body Source Fld Total RBCs Counted (%) 100 09/26 0647 Chemistry Sodium (137 - 145 mmol/L) 135 L Potassium (3.5 - 5.1 mmol/L) 4.3 Chloride (98 - 107 mmol/L) 100 Carbon Dioxide (22 - 30 mmol/L) 22 Anion Gap (5 - 16) 12 BUN (9 - 20 mg/dL) 41 H Creatinine (0.7 - 1.2 mg/dL) 1.5 H Estimated GFR (>60 ml/min) 46 L Iron (49 - 181 ug/dL) 28 L Ferritin (17.9 - 464 ng/mL) 1760.0 H Vitamin B12 (239 - 931 pg/mL) > 1000 H Folate (2.76 - 20.0 ng/mL) 12.2 Hematology CBC w Diff MAN DIFF ORDERED WBC (4.8 - 10.8 /CUMM) 1.9 L RBC (4.70 - 6.10 /CUMM) 2.81 L Hgb (14.0 - 18.0 G/DL) 7.8 L Hct (42 - 52 %) 23.5 L MCV (80.0 - 94.0 FL) 83.5 MCH (27.0 - 31.0 PG) 27.8 MCHC (33.0 - 37.0 G/DL) 33.3 RDW (11.5 - 14.5 %) 13.8 Plt Count (130 - 400 /CUMM) 212 MPV (7.4 - 10.4 FL) 8.6 Gran % (42.2 - 75.2 %) 49.7 Lymphocytes % (20.5 - 51.1 %) 18.5 L Monocytes % (1.7 - 9.3 %) 26.4 H Eosinophils % (0 - 5 %) 4.5 Basophils % (0.0 - 2.0 %) 0.9 Absolute Granulocytes (1.4 - 6.5 /CUMM) 0.9 L Segmented Neutrophils (42.2 - 75.2 %) 49 Absolute Lymphocytes (1.2 - 3.4 /CUMM) 0.4 L Lymphocytes (20.5 - 51.1 %) 20 L Monocytes (1.7 - 9.3 %) 28 H Absolute Monocytes (0.10 - 0.60 /CUMM) 0.5 Eosinophils (0 - 5.0 %) 3 Absolute Eosinophils (0.0 - 0.7 /CUMM) 0.1 Absolute Basophils (0.0 - 0.2 /CUMM) 0 Platelet Estimate (ADEQUATE) VERIFIED BY SMEAR Normocytic RBCs VERIFIED Normochromic RBCs VERIFIED Toxicology Random Vancomycin (ug/ml) 19.5 Assessment/Plan Hematology Assessment/Recommendations: 1. Hematologic status-remains neutropenic and anemic Recommend- Flow cytometry not sent Patient should be placed on folinic acid 25 mg orally per day for 7 days-not folic acid Check stools for occult blood Transfuse red blood cells as needed 2. MRSA sepsis/endocarditis 3. Acute confusion-? 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
[2017-09-27 07:06] VITALS: BP 134/72
[2017-09-27 08:17] LABS: ABSOLUTE BASOPHIL COUNT 0 /CUMM (0.0-0.2); ABSOLUTE EOSINOPHIL COUNT 0.1 /CUMM (0.0-0.7); ABSOLUTE GRANULOCYTE CT 0.8 /CUMM (1.4-6.5); ABSOLUTE LYMPH COUNT 0.4 /CUMM (1.2-3.4); ABSOLUTE MONOCYTE COUNT 0.6 /CUMM (0.10-0.60); BASOPHIL % 0.4 % (0.0-2.0); EOSINOPHIL % 2.8 % (0-5); GRANULOCYTE % 42.2 % (42.2-75.2); HEMATOCRIT 25.4 % (42-52); MEAN CORPUSCULAR HGB CONC 33.8 G/DL (33.0-37.0); MEAN CORPUSCULAR VOLUME 82.9 FL (80.0-94.0); MEAN PLATELET VOLUME 8.3 FL (7.4-10.4); PLATELET COUNT 256 /CUMM (130-400); RBC DISTRIBUTION WIDTH 13.9 % (11.5-14.5); RED BLOOD CELL CT 3.07 /CUMM (4.70-6.10); WHITE BLOOD CELL COUNT 1.9 /CUMM (4.8-10.8)
--- NOTE | 2017-09-27 08:18 | PN- Housestaff ---
Subjective Follow-up For: Osteomyelitis Positive blood cultures New left bundle branch block SHIRA in Renal transplant patient Tele-Events Since Last Visit: NSR BBB 73-83 Subjective: Patient was found to be confused and hallucinating. Patient placed on tristin and 4 point soft restraints. Given 1mg haldol last night. When exit went to examine the patient was morning the patient was talking to himself. At first he stated he was down the street from his work and did not know he was in the hospital. Was told a story that did not make sense about how he ended up in the hospital. He was calling out for the gang saw operator when I tried to examine him. He was alert and oriented 3 when he was brought down to surgery. Review of Systems Constitutional: Reports: see HPI. Objective Last 24 Hrs of Vital Signs/I&O Vital Signs Date Time Temp Pulse Resp B/P B/P Pulse O2 O2 Flow FiO2 Mean Ox Delivery Rate 09/27 0706 98.8 71 24 134/72 95 Room Air 09/26 2213 99.4 73 24 144/82 95 09/26 1414 98.5 65 20 140/70 95 Room Air Intake & Output 09/27 1600 09/27 0800 09/27 0000 Intake Total 120 Output Total 150 Balance -30 Intake, Oral 120 Output, Urine 150 Patient 196 lb Weight Physical Exam General Appearance: Alert, Moderate Distress, aox2 to person and time originally. then aox3 later, patient appeared to be hallucinating and talking to himself in the room, severe distress as I try to examine him and he yelled for the gang saw operator Cardiovascular: irregularly irregular Lungs: Clear to Auscultation, Normal Air Movement, anterior exam due to poor cooperation Abdomen: Normal Bowel Sounds, Soft, No Tenderness Extremities: patient in tristin and 4x soft restraints, right lower foot covered in dressing with old blood seen through the dressing Vascular: 2+ radial pulses Current Medications: Current Medications Sig/Ira Start time Last Medication Dose Route Stop Time Status Admin Acetaminophen 650 MG Q6P PRN 09/22 1600 AC 09/25 PO 2131 Acetylcysteine 1,200 MG Q12 09/26 1615 AC 09/27 PO 09/27 2201 0400 Al Hydroxide/Mg 30 ML Q4-6 PRN PRN 09/22 1645 DC Hydroxide PO Alprazolam 0.5 MG DAILY PRN 09/25 2115 DC 09/25 PO 10/02 211 2132 Amiodarone HCl 100 MG DAILY 09/23 1000 AC 09/26 PO 0848 Apixaban 2.5 MG BID 09/22 2200 DC 09/26 PO 0848 Atorvastatin Calcium 10 MG 1700 09/23 1700 AC 09/26 PO 1715 Benzocaine/Menthol 1 CELIA Q2P PRN 09/24 0615 AC 09/24 PO 1502 Bupropion HCl 100 MG DAILY 09/23 1000 DC 09/26 PO 0849 Calcium/Vitamin D 500 MG DAILY 09/22 1929 AC 09/26 PO 0849 Dextrose/Sodium 1,000 ML Q13H 09/26 1800 CAN Chloride IV Dextrose/Sodium 1,000 ML Q13H 09/26 1430 DC 09/26 Chloride IV 1432 Dicyclomine HCl 20 MG 4 TIMES/DAY 09/22 1800 DC 09/26 PO 2052 Escitalopram Oxalate 10 MG DAILY 09/23 1000 AC 09/26 PO 0848 Folic Acid 2.5 MG DAILY 09/26 1345 DC 09/26 PO 10/02 1001 1715 Haloperidol 1 MG ONCE ONE 09/26 2245 DC 09/26 IM 09/26 2246 2304 Insulin Aspart 0 Q4 09/27 0200 AC SC Insulin Aspart 0 TIDAC/HS 09/23 0800 DC 09/26 SC 1717 Insulin Detemir 13 UNITS 8AM 09/27 0800 AC SC Insulin Detemir 25 UNITS 1/2H BEFOR/BREAKFAST 09/25 0930 DC 09/26 SC 0630 Leucovorin Calcium 25 MG DAILY 09/28 1000 AC PO 10/03 1001 Leucovorin Calcium 25 MG ONCE ONE 09/27 0900 DC PO 09/27 0901 Magnesium Oxide 400 MG ONE ONE 09/27 1030 DC PO 09/27 1031 Metoprolol Succinate 12.5 MG DAILY 09/23 1000 AC 09/26 PO 0849 Morphine Sulfate 2 MG Q4P PRN 09/22 1900 DC 09/24 IV 2125 Mycophenolate Mofetil 1,000 MG BID 09/22 2200 AC 09/26 PO 2052 Sodium Chloride 1,000 ML Q13H 09/26 1800 AC 09/26 IV 1810 Tacrolimus 2 MG 0600 09/24 0600 AC 09/27 PO 0541 Tacrolimus 1.5 MG 0600 09/24 0600 AC 09/27 PO 0541 Vancomycin HCl 1,000 MG ONCE ONE 09/27 0845 DC 09/27 Dextrose/Water 250 ML IV 09/27 0944 1009 Last 24 Hrs of Lab/Joel Results Last 24 Hrs of Labs/Mics: Laboratory Tests 09/27/17 0645: Anion Gap 16, Estimated GFR 40 L, BUN/Creatinine Ratio 22.9, Magnesium 1.6, CBC w Diff MAN DIFF ORDERED, RBC 3.07 L, MCV 82.9, MCH 28.0, MCHC 33.8, RDW 13.9, MPV 8.3, Gran % 42.2, Lymphocytes % 21.3, Monocytes % 33.3 H, Eosinophils % 2.8 , Basophils % 0.4, Absolute Granulocytes 0.8 L, Segmented Neutrophils 36 L, Band Neutrophils 4, Absolute Lymphocytes 0.4 L, Lymphocytes 19 L, Monocytes 34 H, Absolute Monocytes 0.6, Eosinophils 5, Absolute Eosinophils 0.1, Basophils 2 , Absolute Basophils 0, Platelet Estimate VERIFIED BY SMEAR, Normocytic RBCs VERIFIED, Normochromic RBCs VERIFIED, Flow Cytometry Specimen Pending, Random Vancomycin 11.1 09/26/17 1755: CBC w Diff MAN DIFF ORDERED, RBC 3.02 L, MCV 83.4, MCH 27.7, MCHC 33.2, RDW 14.0, MPV 8.4, Gran % 40.9 L, Lymphocytes % 20.6, Monocytes % 30.8 H, Eosinophils % 4.9, Basophils % 2.8 H, Absolute Granulocytes 0.8 L, Segmented Neutrophils 34 L, Band Neutrophils 4, Absolute Lymphocytes 0.4 L, Lymphocytes 17 L, Monocytes 41 H, Absolute Monocytes 0.6, Eosinophils 4, Absolute Eosinophils 0.1, Absolute Basophils 0.1, Platelet Estimate VERIFIED BY SMEAR, Normochromic RBCs VERIFIED, Poikilocytosis FEW, Ovalocytes FEW, Fld Total RBCs Counted 100 Microbiology 09/26 2234 URINE ROUT: Urine Culture - RECD Assessment/Plan Assessment: Patient is a 71-year-old male with a PMH significant for ESRD status post renal transplant on tacrolimus and CellCept, paroxysmal atrial fibrillation on Eliquis , HTN, HLD, CVA, DM, with recent admission to [facility] for osteomyelitis , status post amputation of the right and left third toes and left great toe who presented to the [facility] ED complaining of a several day history of malaise, nausea, vomiting, diarrhea, poor appetite found to have 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 Problem list #Sepsis 2/2 to R foot osteomyelitils MAXIMUM TEMPERATURE 99.5 in 24 hours WBC 1.9, 0 bands CRP >9 Blood cultures + for MRSA Surgical cultures + for MRSA Arterial Doppler: Decreased flow is noted within the right anterior tibial artery, lower part of the left popliteal, and posterior tibial, anterior tibial and dorsalis pedis arteries. Echocardiogram reveals possible vegetation -Patient going for angioplasty today -Plan for transesophageal echocardiogram tomorrow -f/u tacrolimus levels - vanc trough today 11.1. Given 1000 mg vancomycin -Continue vancomycin per ID. Stoped ceftriaxone, metronidazole,\ #Altered mental status/hallucinations Suddent onset of hallucinatinations and AMS starting last night Head CT negative -f/u neuro consult -dc'ed dicyclomine, morphine , burproprion #neurtopenia WBC 1.9 -Follow-up peripheral blood flow cytometry -Continue neutropenic diet and precautions -Follow-up hematology oncology consult #SHIRA on CKD History of renal transplant Creatinine 1.7 (baseline 1.2) Tacrolimus level 16.5 -cont NS, NAC for surgery -Continue tacrolimus 3.5 mg daily, mycophenolate -Follow nephrology recommendations -Continue calcium/vitamin D #H/H drop / anemia CBC 05/02 (september 22) now 7.8/23.5 -> 8.6/25.4 Folate 12.2, B12 >1000, ferritin >1760, iron 28 -Continue folinic acid 25 mg X7 days -f/u peripheral blood flow cytometry as stated above -Npehro okay with EPO. will touch base with heme-onc regarding start date -Continue to monitor #diabtes Maintain blood sugars less than 150 -cont endo recs #New onset left bundle branch block/mild elevated troponins Troponins 0.04, 0.18, 0.13 -Mild elevated troponins likely secondary to infection -Continue to follow cardiology recommendations #Chronic medical problems including PVD, paroxysmal A. fib, HTN, HLD, -Continue atorvastatin, metoprolol, amiodarone, escitalopram, bupropion, apixaban, dicyclomine, Maalox, DVT prophylaxis: Eliquis after surgery. Currently held for surgery CODE STATUS: Full code Problem List: 1. Left bundle branch block 2. Renal transplant recipient 3. SHIRA (acute kidney injury) 4. Osteomyelitis 5. Osteomyelitis of foot, right, acute Pain Ratin Pain Location: Right foot Pain Goal: Pain 4 or less Pain Plan: pain pathway Tomorrow's Labs & Rationales: cbc bep vanc level
--- NOTE | 2017-09-27 09:35 | PN- Pulmonary ---
Subjective HPI/Critical Care Issues: Doing poorly this am with confusion with delirium Afebrile confused EKG did show prolonged qtc Objective Current Medications: Current Medications Sig/Ira Start time Last Medication Dose Route Stop Time Status Admin Acetaminophen 650 MG Q6P PRN 09/22 1600 AC 09/25 PO 2131 Acetylcysteine 1,200 MG Q12 09/26 1615 AC 09/27 PO 09/27 2201 0400 Al Hydroxide/Mg 30 ML Q4-6 PRN PRN 09/22 1645 AC Hydroxide PO Alprazolam 0.5 MG DAILY PRN 09/25 2115 DC 09/25 PO 10/02 211 2132 Amiodarone HCl 100 MG DAILY 09/23 1000 AC 09/26 PO 0848 Apixaban 2.5 MG BID 09/22 2200 DC 09/26 PO 0848 Atorvastatin Calcium 10 MG 1700 09/23 1700 AC 09/26 PO 1715 Benzocaine/Menthol 1 CELIA Q2P PRN 09/24 0615 AC 09/24 PO 1502 Bupropion HCl 100 MG DAILY 09/23 1000 AC 09/26 PO 0849 Calcium/Vitamin D 500 MG DAILY 09/22 1929 AC 09/26 PO 0849 Dextrose/Sodium 1,000 ML Q13H 09/26 1800 CAN Chloride IV Dextrose/Sodium 1,000 ML Q13H 09/26 1430 DC 09/26 Chloride IV 1432 Dicyclomine HCl 20 MG 4 TIMES/DAY 09/22 1800 DC 09/26 PO 2052 Escitalopram Oxalate 10 MG DAILY 09/23 1000 AC 09/26 PO 0848 Folic Acid 2.5 MG DAILY 09/26 1345 DC 09/26 PO 10/02 1001 1715 Haloperidol 1 MG ONCE ONE 09/26 2245 DC 09/26 IM 09/26 2246 2304 Insulin Aspart 0 Q4 09/27 0200 AC SC Insulin Aspart 0 TIDAC/HS 09/23 0800 DC 09/26 SC 1717 Insulin Detemir 13 UNITS 8AM 09/27 0800 AC SC Insulin Detemir 25 UNITS 1/2H BEFOR/BREAKFAST 09/25 0930 DC 09/26 SC 0630 Leucovorin Calcium 25 MG DAILY 09/28 1000 AC PO 10/03 1001 Leucovorin Calcium 25 MG ONCE ONE 09/27 0900 DC PO 09/27 0901 Metoprolol Succinate 12.5 MG DAILY 09/23 1000 AC 09/26 PO 0849 Morphine Sulfate 2 MG Q4P PRN 09/22 1900 AC 09/24 IV 2125 Mycophenolate Mofetil 1,000 MG BID 09/22 2200 AC 09/26 PO 205 Sodium Chloride 1,000 ML Q13H 09/26 1800 AC 09/26 IV 1810 Tacrolimus 2 MG 09/24 0600 AC 09/27 PO 0541 Tacrolimus 1.5 MG 09/24 0600 AC 09/27 PO 0541 Vancomycin HCl 1,000 MG ONCE ONE 09/27 0845 AC Dextrose/Water 250 ML IV 09/27 0944 Vital Signs & I&O Last 24 Hrs of Vitals and I&O: Laboratory Tests 09/27 09/26 0645 1755 Chemistry Sodium (137 - 145 mmol/L) 139 Potassium (3.5 - 5.1 mmol/L) 4.3 Chloride (98 - 107 mmol/L) 103 Carbon Dioxide (22 - 30 mmol/L) 20 L Anion Gap (5 - 16) 16 BUN (9 - 20 mg/dL) 39 H Creatinine (0.7 - 1.2 mg/dL) 1.7 H Estimated GFR (>60 ml/min) 40 L BUN/Creatinine Ratio (7 - 25 %) 22.9 Magnesium (1.6 - 2.3 mg/dL) Pending Hematology CBC w Diff MAN DIFF ORDERED MAN DIFF ORDERED WBC (4.8 - 10.8 /CUMM) Pending 1.9 L RBC (4.70 - 6.10 /CUMM) Pending 3.02 L Hgb (14.0 - 18.0 G/DL) Pending 8.4 L Hct (42 - 52 %) Pending 25.2 L MCV (80.0 - 94.0 FL) Pending 83.4 MCH (27.0 - 31.0 PG) Pending 27.7 MCHC (33.0 - 37.0 G/DL) Pending 33.2 RDW (11.5 - 14.5 %) Pending 14.0 Plt Count (130 - 400 /CUMM) Pending 227 MPV (7.4 - 10.4 FL) Pending 8.4 Gran % (42.2 - 75.2 %) Pending 40.9 L Lymphocytes % (20.5 - 51.1 %) Pending 20.6 Monocytes % (1.7 - 9.3 %) Pending 30.8 H Eosinophils % (0 - 5 %) Pending 4.9 Basophils % (0.0 - 2.0 %) Pending 2.8 H Absolute Granulocytes (1.4 - 6.5 /CUMM) Pending 0.8 L Segmented Neutrophils (42.2 - 75.2 %) Pending 34 L Band Neutrophils (0.0 - 5.0 %) 4 Absolute Lymphocytes (1.2 - 3.4 /CUMM) Pending 0.4 L Lymphocytes (20.5 - 51.1 %) 17 L Monocytes (1.7 - 9.3 %) 41 H Absolute Monocytes (0.10 - 0.60 /CUMM) Pending 0.6 Eosinophils (0 - 5.0 %) 4 Absolute Eosinophils (0.0 - 0.7 /CUMM) Pending 0.1 Absolute Basophils (0.0 - 0.2 /CUMM) Pending 0.1 Platelet Estimate (ADEQUATE) VERIFIED BY SMEAR Normochromic RBCs VERIFIED Poikilocytosis FEW Ovalocytes FEW Miscellaneous Flow Cytometry Specimen Pending Other Body Source Fld Total RBCs Counted (%) 100 Toxicology Random Vancomycin (ug/ml) 11.1 09/26 09/26 0647 0600 Chemistry Sodium (137 - 145 mmol/L) 135 L Potassium (3.5 - 5.1 mmol/L) 4.3 Chloride (98 - 107 mmol/L) 100 Carbon Dioxide (22 - 30 mmol/L) 22 Anion Gap (5 - 16) 12 BUN (9 - 20 mg/dL) 41 H Creatinine (0.7 - 1.2 mg/dL) 1.5 H Estimated GFR (>60 ml/min) 46 L Iron (49 - 181 ug/dL) 28 L Ferritin (17.9 - 464 ng/mL) 1760.0 H Vitamin B12 (239 - 931 pg/mL) > 1000 H Folate (2.76 - 20.0 ng/mL) 12.2 Hematology CBC w Diff MAN DIFF ORDERED WBC (4.8 - 10.8 /CUMM) 1.9 L RBC (4.70 - 6.10 /CUMM) 2.81 L Hgb (14.0 - 18.0 G/DL) 7.8 L Hct (42 - 52 %) 23.5 L MCV (80.0 - 94.0 FL) 83.5 MCH (27.0 - 31.0 PG) 27.8 MCHC (33.0 - 37.0 G/DL) 33.3 RDW (11.5 - 14.5 %) 13.8 Plt Count (130 - 400 /CUMM) 212 MPV (7.4 - 10.4 FL) 8.6 Gran % (42.2 - 75.2 %) 49.7 Lymphocytes % (20.5 - 51.1 %) 18.5 L Monocytes % (1.7 - 9.3 %) 26.4 H Eosinophils % (0 - 5 %) 4.5 Basophils % (0.0 - 2.0 %) 0.9 Absolute Granulocytes (1.4 - 6.5 /CUMM) 0.9 L Segmented Neutrophils (42.2 - 75.2 %) 49 Absolute Lymphocytes (1.2 - 3.4 /CUMM) 0.4 L Lymphocytes (20.5 - 51.1 %) 20 L Monocytes (1.7 - 9.3 %) 28 H Absolute Monocytes (0.10 - 0.60 /CUMM) 0.5 Eosinophils (0 - 5.0 %) 3 Absolute Eosinophils (0.0 - 0.7 /CUMM) 0.1 Absolute Basophils (0.0 - 0.2 /CUMM) 0 Platelet Estimate (ADEQUATE) VERIFIED BY SMEAR Normocytic RBCs VERIFIED Normochromic RBCs VERIFIED Toxicology Random Vancomycin (ug/ml) 19.5 Tacrolimus (() mcg/L) 16.5 Microbiology Date/Time Procedure - Status Source Growth 09/26 2234 Urine Culture - RECD URINE ROUT 09/25 2127 Blood Culture - RES BLOOD 09/24 2014 Blood Culture - RES BLOOD 09/24 174 Clostridium difficile Toxin A & B - COMP STOOL Vital Signs Date Time Temp Pulse Resp B/P B/P Pulse O2 O2 Flow FiO2 Mean Ox Delivery Rate 09/27 0706 98.8 71 24 134/72 95 Room Air 09/26 2213 99.4 73 24 144/82 95 09/26 1414 98.5 65 20 140/70 95 Room Air Intake & Output 09/27 1600 09/27 0800 09/27 0000 Intake Total 120 Output Total 150 Balance -30 Intake, Oral 120 Output, Urine 150 Patient 196 lb Weight Impression/Plan Impression/Plan Impression/Plan: General Appearance: well developed/nourished, alert, awake, anxious, mild distress Head: atraumatic, normal appearance Eyes: Bilateral: normal appearance, PERRL, EOMI. Ears, Nose, Throat: normal pharynx, normal ENT inspection, hearing grossly normal Neck: normal inspection, supple, full range of motion, no midline tenderness Respiratory: normal breath sounds, chest non-tender, no respiratory distress, quiet respiration, lungs clear Cardiovascular: normal peripheral pulses, irregularly irregular, norml femoral pulses equa Peripheral Pulses: 4+ carotid (R), 4+ carotid (L) Gastrointestinal: normal bowel sounds, soft, non-tender, no organomegaly Back: normal inspection, normal range of motion, no vertebral tenderness Extremities: no edema, pelvis stable,s/p debridement and in dressing Neurologic/Psych: no motor/sensory deficits, awake, alert, oriented x 2 Confused at times and easily redirectable , normal mood/affect, 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 TESS pending * Sig delirium since last night without neuro deficit, Rule out intracranial abscess etc and pt not a candidate for MRI due to active delirium and will do a ct head without (CKD) * Prolonged qtc, previous low mag * SHIRA with CKD s/p renal transplant, creat now 1.7 * On immunosupp rx, with leukopenia( see heme note ) and hence sig immunosupp * DM insulin requiring endo onboard * PVD, previous history of stoke, and previous toe amputation * Previous secondary hyperparathyroid * Sig autonomic dysfunction on fludocortisone * Pafib on eliquis (in sinus on amiodarone) (held for angio today) * Depression and anxiety * Peripheral neuropathy * Mild ekg changes with slight elevated troponin stable REC * Head ct * Cont abx * ID and Podiatry, vascular, Cardio,Endo and renal following * IV abx per ID * See Onc note * Send tacrolimus level DONOVAN to [place] (ask lab to facilitate this) * EKG monitoring per cardio * Check mag and keep more than 2 * TESS in am * Pt is willing for angio and sister will give consent if needed and I did update her over the phone * Keep sugars at 150 or below with sliding scale * COnt immunosupp rx * DC dicyclomine,Morphine, Bupropion for now * Cont metoprolol, statin, amio, antidepressants * Start gentle ivf this pm at 6 pm in anticipation of angio in am with normal saline at 75 cc
--- NOTE | 2017-09-27 10:16 | PN- Infect Dx ---
Subjective Subjective: Afebrile. Recent events noted with confusion and agitation earlier this morning , treated with Haldol. Objective Last 24 Hrs of Vital Signs/I&O Vital Signs Date Time Temp Pulse Resp B/P B/P Pulse O2 O2 Flow FiO2 Mean Ox Delivery Rate 09/27 0706 98.8 71 24 134/72 95 Room Air 09/26 2213 99.4 73 24 144/82 95 09/26 1414 98.5 65 20 140/70 95 Room Air Intake & Output 09/27 1600 09/27 0800 09/27 0000 Intake Total 120 Output Total 150 Balance -30 Intake, Oral 120 Output, Urine 150 Patient 196 lb Weight Physical Exam Other Physical Findings: At present he is mildly confused but less agitated and in no acute distress Lungs are clear Heart regular rhythm with a 1/6 systolic ejection murmur Abdomen is soft, nontender with positive bowel sounds Extremities right foot wound with mild erythema with no necrosis or drainage; packing in place Results Last 24 Hours of Lab Results: Laboratory Tests 09/27 09/26 0645 1755 Chemistry Sodium (137 - 145 mmol/L) 139 Potassium (3.5 - 5.1 mmol/L) 4.3 Chloride (98 - 107 mmol/L) 103 Carbon Dioxide (22 - 30 mmol/L) 20 L Anion Gap (5 - 16) 16 BUN (9 - 20 mg/dL) 39 H Creatinine (0.7 - 1.2 mg/dL) 1.7 H Estimated GFR (>60 ml/min) 40 L BUN/Creatinine Ratio (7 - 25 %) 22.9 Magnesium (1.6 - 2.3 mg/dL) 1.6 Hematology CBC w Diff MAN DIFF ORDERED MAN DIFF ORDERED WBC (4.8 - 10.8 /CUMM) Pending 1.9 L RBC (4.70 - 6.10 /CUMM) Pending 3.02 L Hgb (14.0 - 18.0 G/DL) Pending 8.4 L Hct (42 - 52 %) Pending 25.2 L MCV (80.0 - 94.0 FL) Pending 83.4 MCH (27.0 - 31.0 PG) Pending 27.7 MCHC (33.0 - 37.0 G/DL) Pending 33.2 RDW (11.5 - 14.5 %) Pending 14.0 Plt Count (130 - 400 /CUMM) Pending 227 MPV (7.4 - 10.4 FL) Pending 8.4 Gran % (42.2 - 75.2 %) Pending 40.9 L Lymphocytes % (20.5 - 51.1 %) Pending 20.6 Monocytes % (1.7 - 9.3 %) Pending 30.8 H Eosinophils % (0 - 5 %) Pending 4.9 Basophils % (0.0 - 2.0 %) Pending 2.8 H Absolute Granulocytes (1.4 - 6.5 /CUMM) Pending 0.8 L Segmented Neutrophils (42.2 - 75.2 %) Pending 34 L Band Neutrophils (0.0 - 5.0 %) 4 Absolute Lymphocytes (1.2 - 3.4 /CUMM) Pending 0.4 L Lymphocytes (20.5 - 51.1 %) 17 L Monocytes (1.7 - 9.3 %) 41 H Absolute Monocytes (0.10 - 0.60 /CUMM) Pending 0.6 Eosinophils (0 - 5.0 %) 4 Absolute Eosinophils (0.0 - 0.7 /CUMM) Pending 0.1 Absolute Basophils (0.0 - 0.2 /CUMM) Pending 0.1 Platelet Estimate (ADEQUATE) VERIFIED BY SMEAR Normochromic RBCs VERIFIED Poikilocytosis FEW Ovalocytes FEW Miscellaneous Flow Cytometry Specimen Pending Other Body Source Fld Total RBCs Counted (%) 100 Toxicology Random Vancomycin (ug/ml) 11.1 Last 24 Hours of Joel Results: Blood cultures September 23 negative Blood cultures September 24 negative Urine culture September 26 pending Assessment/Plan ID Impression: Acute alteration in his mental status, with confusion and agitation overnight, of unclear etiology but suspect a toxic metabolic process, possibly secondary to one of his medications. He has no new focality to suggest an acute SHELL SORTER event but, with the possibility of endocarditis, embolic processes, including mycotic aneurysm, must be considered. He remains afebrile with his white blood cell count still low, with only 800 neutrophils, possibly secondary to his immunosuppressive medications, though the doses have not changed, or, possibly, Vancomycin which he remains on for MRSA sepsis/possible aortic valve endocarditis now 5 days status post revisional partial first ray resection for a necrotic wound/osteomyelitis of the right foot. His renal function remains abnormal, possibly secondary to sepsis or medications, and continues to need close monitoring. He is scheduled for an angiogram of the right leg today and a TESS in the a.m. Suggestion: 1. Discontinue all nonessential medications 2. CT or MRI (if able to tolerate) of the head 3. Await angiogram of the right lower extremity 4. Await TESS 5. Podiatry follow-up regarding his right foot 6. Re-dose with Vancomycin 1 g IV 1 today and recheck a random Vancomycin level in the a.m.
--- NOTE | 2017-09-27 10:35 | CT SCAN REPORT ---
EXAMINATION: CT HEAD WITHOUT CONTRAST CLINICAL INFORMATION: Brain abscess in setting of sepsis. Acute confusion. COMPARISON: Head CT 02/17/2015. TECHNIQUE: Contiguous axial imaging was performed from the skull base to vertex without intravenous administration of contrast. DLP: 616 mGy-cm. FINDINGS: There is no intracranial hemorrhage, large infarction, or mass lesion. There is no extra-axial collection. The right lateral ventricles is mildly smaller than the left which is likely developmental finding. There is no evidence of layering debris in the lateral ventricles. There is no evidence of hydrocephalus. There is age-appropriate brain parenchymal volume loss. The paranasal sinuses are clear. The mastoids and middle ear cavities are clear. There are atherosclerotic calcification of the carotid siphons and vertebral arteries. IMPRESSION: No acute intracranial abnormality identified. There are no secondary findings to suggest intracranial abscess. Note that brain MRI with contrast would provide for more sensitive evaluation.
--- NOTE | 2017-09-27 12:26 | PN- Cardiology ---
Subjective Subjective: Cardiac status unchanged. Increasing confusion and agitation. Head CT pending. Vascular intervention later today. TESS tomorrow Objective Vital Signs and I&Os Vital Signs Date Time Temp Pulse Resp B/P B/P Pulse O2 O2 Flow FiO2 Mean Ox Delivery Rate 09/27 0706 98.8 71 24 134/72 95 Room Air 09/26 2213 99.4 73 24 144/82 95 09/26 1414 98.5 65 20 140/70 95 Room Air Intake & Output 09/27 1600 09/27 0800 09/27 0000 09/26 1600 09/26 0800 09/26 0000 Intake Total 120 700 240 750 Output Total 150 300 451 Balance -30 700 -60 299 Intake, IV 250 Intake, Oral 120 700 240 500 Number 1 Bowel Movements Output, Stool 1 Output, Urine 150 300 450 Patient 196 lb 198 lb Weight Weight Bed scale Measurement Method Current Medications: Current Medications Sig/Ira Start time Last Medication Dose Route Stop Time Status Admin Acetaminophen 650 MG Q6P PRN 09/22 1600 AC 09/25 PO 2131 Acetylcysteine 1,200 MG Q12 09/26 1615 AC 09/27 PO 09/27 2201 0400 Al Hydroxide/Mg 30 ML Q4-6 PRN PRN 09/22 1645 DC Hydroxide PO Alprazolam 0.5 MG DAILY PRN 09/25 2115 DC 09/25 PO 10/02 211 2132 Amiodarone HCl 100 MG DAILY 09/23 1000 AC 09/26 PO 0848 Apixaban 2.5 MG BID 09/22 2200 DC 09/26 PO 0848 Atorvastatin Calcium 10 MG 1700 09/23 1700 AC 09/26 PO 1715 Benzocaine/Menthol 1 CELIA Q2P PRN 09/24 0615 AC 09/24 PO 1502 Bupropion HCl 100 MG DAILY 09/23 1000 DC 09/26 PO 0849 Calcium/Vitamin D 500 MG DAILY 09/22 1929 AC 09/26 PO 0849 Dextrose/Sodium 1,000 ML Q13H 09/26 1800 CAN Chloride IV Dextrose/Sodium 1,000 ML Q13H 09/26 1430 DC 09/26 Chloride IV 1432 Dicyclomine HCl 20 MG 4 TIMES/DAY 09/22 1800 DC 09/26 PO 2052 Escitalopram Oxalate 10 MG DAILY 09/23 1000 AC 09/26 PO 0848 Folic Acid 2.5 MG DAILY 09/26 1345 DC 09/26 PO 10/02 1001 1715 Haloperidol 1 MG ONCE ONE 09/26 2245 DC 09/26 IM 09/26 2246 2304 Insulin Aspart 0 Q4 09/27 0200 AC SC Insulin Aspart 0 TIDAC/HS 09/23 0800 DC 09/26 SC 1717 Insulin Detemir 13 UNITS 8AM 09/27 0800 AC SC Insulin Detemir 25 UNITS 1/2H BEFOR/BREAKFAST 09/25 0930 DC 09/26 SC 0630 Leucovorin Calcium 25 MG DAILY 09/28 1000 AC PO 10/03 1001 Leucovorin Calcium 25 MG ONCE ONE 09/27 0900 DC PO 09/27 0901 Magnesium Oxide 400 MG ONE ONE 09/27 1030 DC PO 09/27 1031 Metoprolol Succinate 12.5 MG DAILY 09/23 1000 AC 09/26 PO 0849 Morphine Sulfate 2 MG Q4P PRN 09/22 1900 DC 09/24 IV 2125 Mycophenolate Mofetil 1,000 MG BID 09/22 2200 AC 09/26 PO 2052 Sodium Chloride 1,000 ML Q13H 09/26 1800 AC 09/26 IV 1810 Tacrolimus 2 MG 0600 09/24 0600 AC 09/27 PO 0541 Tacrolimus 1.5 MG 0600 09/24 0600 AC 09/27 PO 0541 Vancomycin HCl 1,000 MG ONCE ONE 09/27 0845 DC 09/27 Dextrose/Water 250 ML IV 09/27 0944 1009 Results Last 48 Hrs of Labs/Mics: Laboratory Tests 09/27/17 0645: Anion Gap 16, Estimated GFR 40 L, BUN/Creatinine Ratio 22.9, Magnesium 1.6, CBC w Diff MAN DIFF ORDERED, RBC 3.07 L, MCV 82.9, MCH 28.0, MCHC 33.8, RDW 13.9, MPV 8.3, Gran % 42.2, Lymphocytes % 21.3, Monocytes % 33.3 H, Eosinophils % 2.8 , Basophils % 0.4, Absolute Granulocytes 0.8 L, Segmented Neutrophils 36 L, Band Neutrophils 4, Absolute Lymphocytes 0.4 L, Lymphocytes 19 L, Monocytes 34 H, Absolute Monocytes 0.6, Eosinophils 5, Absolute Eosinophils 0.1, Basophils 2 , Absolute Basophils 0, Platelet Estimate VERIFIED BY SMEAR, Normocytic RBCs VERIFIED, Normochromic RBCs VERIFIED, Flow Cytometry Specimen Pending, Random Vancomycin 11.1 09/26/17 1755: CBC w Diff MAN DIFF ORDERED, RBC 3.02 L, MCV 83.4, MCH 27.7, MCHC 33.2, RDW 14.0, MPV 8.4, Gran % 40.9 L, Lymphocytes % 20.6, Monocytes % 30.8 H, Eosinophils % 4.9, Basophils % 2.8 H, Absolute Granulocytes 0.8 L, Segmented Neutrophils 34 L, Band Neutrophils 4, Absolute Lymphocytes 0.4 L, Lymphocytes 17 L, Monocytes 41 H, Absolute Monocytes 0.6, Eosinophils 4, Absolute Eosinophils 0.1, Absolute Basophils 0.1, Platelet Estimate VERIFIED BY SMEAR, Normochromic RBCs VERIFIED, Poikilocytosis FEW, Ovalocytes FEW, Fld Total RBCs Counted 100 09/26/17 0647: Anion Gap 12, Estimated GFR 46 L, Iron 28 L, Ferritin 1760.0 H, Vitamin B12 > 1000 H, Folate 12.2, CBC w Diff MAN DIFF ORDERED, RBC 2.81 L, MCV 83.5, MCH 27.8, MCHC 33.3, RDW 13.8, MPV 8.6, Gran % 49.7, Lymphocytes % 18.5 L, Monocytes % 26.4 H, Eosinophils % 4.5, Basophils % 0.9, Absolute Granulocytes 0.9 L, Segmented Neutrophils 49, Absolute Lymphocytes 0.4 L, Lymphocytes 20 L , Monocytes 28 H, Absolute Monocytes 0.5, Eosinophils 3, Absolute Eosinophils 0.1, Absolute Basophils 0, Platelet Estimate VERIFIED BY SMEAR, Normocytic RBCs VERIFIED, Normochromic RBCs VERIFIED, Random Vancomycin 19.5 09/26/17 0600: Tacrolimus 16.5 Assessment/Plan Assessment/Plan Assessment: 1. Minimally elevated troponin suggestive of type II MS 2. MRSA bacteremia with evidence of possible aortic valve vegetation on transthoracic echocardiogram 3. Osteomyelitis 4. Abnormal ECG 5. Status post renal transplant 6. Anemia 7. Mild hyponatremia Recommendations: -I discussed the results of the transthoracic echo cardiac exam with Eben Dickinson MD of the ID service -Transesophageal echocardiogram scheduled for Tuesday -Please keep the patient nothing by mouth after midnight tonight for TESS in a.m. If the patient's family is available today, please have him sign a consent form for the TESS. Continue telemetry? Yes
--- NOTE | 2017-09-27 12:29 | PN- Diabetes ---
Assessment/Plan Diabetes Assessment: Patient is a 71-year-old male with a PMH significant for ESRD status post renal transplant on tacrolimus and CellCept, paroxysmal atrial fibrillation on Eliquis , HTN, HLD, CVA, DM type 2, with recent admission to [facility] for osteomyelitis, status post amputation of the toes, was admitted for chronic right foot infection. He is going to have angiogram done today. He has been kept NPO. In addition, he is on NS 75 ml/hour. He has been confused and agitated since last night. His FSGs were 98, 95, 132. Plan: 1. continue monitoring his glucose level and novolog coverage every 4 hours if his FSG is above 200--detail see the scale. 2. after he is back from procedure and when he is ready to eat, we will restart levemir and Novolog coverage before meals. Please contact me and then his insulin regimen will be determined accordingly. will follow. Subjective Subjective: Patient is confused and agitated. Objective Last 24 Hrs of Vital Signs/I&O Vital Signs Date Time Temp Pulse Resp B/P B/P Pulse O2 O2 Flow FiO2 Mean Ox Delivery Rate 09/27 0706 98.8 71 24 134/72 95 Room Air 09/26 2213 99.4 73 24 144/82 95 09/26 1414 98.5 65 20 140/70 95 Room Air Intake & Output 09/27 1600 09/27 0800 09/27 0000 Intake Total 120 Output Total 150 Balance -30 Intake, Oral 120 Output, Urine 150 Patient 196 lb Weight Findings Pertinent Lab/Joel Results: Laboratory Tests 09/27 0645 Chemistry Sodium (137 - 145 mmol/L) 139 Potassium (3.5 - 5.1 mmol/L) 4.3 Chloride (98 - 107 mmol/L) 103 Carbon Dioxide (22 - 30 mmol/L) 20 L Anion Gap (5 - 16) 16 BUN (9 - 20 mg/dL) 39 H Creatinine (0.7 - 1.2 mg/dL) 1.7 H Estimated GFR (>60 ml/min) 40 L BUN/Creatinine Ratio (7 - 25 %) 22.9 Magnesium (1.6 - 2.3 mg/dL) 1.6 Hematology CBC w Diff MAN DIFF ORDERED WBC (4.8 - 10.8 /CUMM) 1.9 L RBC (4.70 - 6.10 /CUMM) 3.07 L Hgb (14.0 - 18.0 G/DL) 8.6 L Hct (42 - 52 %) 25.4 L MCV (80.0 - 94.0 FL) 82.9 MCH (27.0 - 31.0 PG) 28.0 MCHC (33.0 - 37.0 G/DL) 33.8 RDW (11.5 - 14.5 %) 13.9 Plt Count (130 - 400 /CUMM) 256 MPV (7.4 - 10.4 FL) 8.3 Gran % (42.2 - 75.2 %) 42.2 Lymphocytes % (20.5 - 51.1 %) 21.3 Monocytes % (1.7 - 9.3 %) 33.3 H Eosinophils % (0 - 5 %) 2.8 Basophils % (0.0 - 2.0 %) 0.4 Absolute Granulocytes (1.4 - 6.5 /CUMM) 0.8 L Segmented Neutrophils (42.2 - 75.2 %) 36 L Band Neutrophils (0.0 - 5.0 %) 4 Absolute Lymphocytes (1.2 - 3.4 /CUMM) 0.4 L Lymphocytes (20.5 - 51.1 %) 19 L Monocytes (1.7 - 9.3 %) 34 H Absolute Monocytes (0.10 - 0.60 /CUMM) 0.6 Eosinophils (0 - 5.0 %) 5 Absolute Eosinophils (0.0 - 0.7 /CUMM) 0.1 Basophils (0.0 - 2.0 %) 2 Absolute Basophils (0.0 - 0.2 /CUMM) 0 Platelet Estimate (ADEQUATE) VERIFIED BY SMEAR Normocytic RBCs VERIFIED Normochromic RBCs VERIFIED Miscellaneous Flow Cytometry Specimen Pending Toxicology Random Vancomycin (ug/ml) 11.1 03 1755 Hematology CBC w Diff MAN DIFF ORDERED WBC (4.8 - 10.8 /CUMM) 1.9 L RBC (4.70 - 6.10 /CUMM) 3.02 L Hgb (14.0 - 18.0 G/DL) 8.4 L Hct (42 - 52 %) 25.2 L MCV (80.0 - 94.0 FL) 83.4 MCH (27.0 - 31.0 PG) 27.7 MCHC (33.0 - 37.0 G/DL) 33.2 RDW (11.5 - 14.5 %) 14.0 Plt Count (130 - 400 /CUMM) 227 MPV (7.4 - 10.4 FL) 8.4 Gran % (42.2 - 75.2 %) 40.9 L Lymphocytes % (20.5 - 51.1 %) 20.6 Monocytes % (1.7 - 9.3 %) 30.8 H Eosinophils % (0 - 5 %) 4.9 Basophils % (0.0 - 2.0 %) 2.8 H Absolute Granulocytes (1.4 - 6.5 /CUMM) 0.8 L Segmented Neutrophils (42.2 - 75.2 %) 34 L Band Neutrophils (0.0 - 5.0 %) 4 Absolute Lymphocytes (1.2 - 3.4 /CUMM) 0.4 L Lymphocytes (20.5 - 51.1 %) 17 L Monocytes (1.7 - 9.3 %) 41 H Absolute Monocytes (0.10 - 0.60 /CUMM) 0.6 Eosinophils (0 - 5.0 %) 4 Absolute Eosinophils (0.0 - 0.7 /CUMM) 0.1 Absolute Basophils (0.0 - 0.2 /CUMM) 0.1 Platelet Estimate (ADEQUATE) VERIFIED BY SMEAR Normochromic RBCs VERIFIED Poikilocytosis FEW Ovalocytes FEW Other Body Source Fld Total RBCs Counted (%) 100
--- NOTE | 2017-09-27 15:42 | Operative Report ---
Operative/Inv Procedure Report Surgery Date: 09/27/17 Name of Procedure: -Ultrasound-guided left common femoral artery access -Aortogram -Third order right leg angiogram -Angioplasty of right peroneal artery Pre-Operative Diagnosis: Right foot ischemia with nonhealing wound Post-Operative Diagnosis: Same Estimated Blood Loss: scant Surgeon/Repairer Helper: MD DUDLEY HOOVER. Anesthesia: moderate sedation Operative/Procedure Note Note: Patient is a 71-year-old man who is status post kidney transplant several years ago. He presented with nonhealing infection of the foot wound. He underwent incision and drainage by Dr. Dye is found to have very poorly perfused tissues. The patient did not have any palpable pedal pulses. He was scheduled for right leg angiogram with possible interventions. The nature of the procedure including is possible complications which included but not limited to bleeding, infection, renal failure, injury to vessels, blood clots and need for re-intervention were discussed. An informed consent was obtained from the patient's sister due to the patient's mental status change on the day of surgery. Patient was taken to the operating room and placed supine on the table. A timeout was called according to protocol. After satisfactory induction of anesthesia, the patient was prepped and draped in standard surgical fashion. Using an ultrasound, left common femoral artery was accessed using micropuncture technique. A Bentson wire was advanced into the aorta under direct fluoroscopic guidance. The micropuncture sheath was exchanged with a short 5 [place]erratian sheath. An Omni Flush catheter was advanced over the wire and placed into the abdominal aorta. From this position, an aortogram was performed which showed patent aorta , bilateral common iliac, external iliac, and internal iliac arteries with no significant disease. With the aid of Omni Flush catheter and Bentson wire, right iliac artery system was selected. The Omni Flush catheter was exchanged with a short 5 [place]ian glide catheter which was advanced over the wire and placed into the proximal right common femoral artery. From this position, right leg angiogram was performed which showed patent common femoral, profunda, and SFA with mild diffuse disease. Popliteal artery was patent. Anterior tibial artery was patent and a in-line flow to the foot. Posterior tibial artery was patent from it's origin but shortly thereafter occluded in the mid leg. Peroneal artery was patent from it' s origin with diffuse moderate disease. The decision was made to intervene. A long stiff Glidewire was advanced into the glide catheter and placed into the mid SFA. The 5 [place]ian sheath was exchanged with a 90 cm 5 [place]ian Ansell sheath which was advanced over the wire and placed into the distal right SFA. 8000 units of heparin was given. Then with the aid of a 014 wire and 014 quick cross, I was able to select the posterior tibial artery. The wire was advanced into the mid posterior tibial artery. The quick cross was advanced over the wire and would not advance the mid segment. After multiple attempts it would not advance. I then pulled out the wire and did an angiogram through the quick cross catheter in the mid posterior tibial artery which showed intraluminal position with an occlusion shortly thereafter. A 2 x 40 mm balloon was advanced over the wire and angioplasty of this segment was performed in order to aid crossing of the quick cross catheter. Again after multiple attempts this was not successful. The decision was then made to cross the peroneal artery and perform angioplasty of this artery. An 014 wire was advanced into the peroneal artery and was able to track this with 014 quick cross. The wire was advanced into the distal segment of the peroneal artery. Then a 2 x 150 mm balloon was used to angioplasty the peroneal artery. Post angioplasty angiogram through the sheath showed resolution of the stenosis in the peroneal artery. As mentioned above, popliteal, anterior tibial, and peroneal artery are patent. Posterior tibial arteries taken from its origin but it occludes in the mid leg. The anterior tibial artery gives rise dorsalis pedis but then shortly thereafter it becomes a meshwork of tiny arteries. It appears that the patient has year small vessel disease of the foot. Wires and catheters were removed. The Ansell sheath was exchanged with a short 5 [place]err[place]ian sheath. Exoseal device was used to close the puncture site. 5 minutes of manual pressure was applied. Sterile dressing was then applied. The patient tolerated the procedure well. Dr. Dye will be performing his part of the surgery to the right foot. For the details of this part of the operation, please refer to his operative note.
--- NOTE | 2017-09-27 16:20 | PN- Vascular Surgery ---
Subjective Subjective: post op check: resting comfortably. no complaints. wound vac in place. Objective Vital Signs and I&Os Vital Signs Date Time Temp Pulse Resp B/P B/P Pulse O2 O2 Flow FiO2 Mean Ox Delivery Rate 09/27 07 98.8 71 24 134/72 95 Room Air 09/26 2213 99.4 73 24 144/82 95 Intake & Output 09/27 1600 09/27 0800 09/27 0000 09/26 1600 09/26 0800 09/26 0000 Intake Total 700 120 700 240 750 Output Total 150 300 451 Balance 700 -30 700 -60 299 Intake, IV 700 250 Intake, Oral 120 700 240 500 Number 1 Bowel Movements Output, Stool 1 Output, Urine 150 300 450 Patient 196 lb 198 lb Weight Weight Bed scale Measurement Method Physical Exam: wdwn, resting, comfortable no resp distress RLE- dressing in place, wound vac in place L groin site: cdi, no active bleeding, no swelling no hematoma. Results Last 48 Hours of Labs: Laboratory Tests 09/27 0645 Chemistry Sodium (137 - 145 mmol/L) 139 Potassium (3.5 - 5.1 mmol/L) 4.3 Chloride (98 - 107 mmol/L) 103 Carbon Dioxide (22 - 30 mmol/L) 20 L Anion Gap (5 - 16) 16 BUN (9 - 20 mg/dL) 39 H Creatinine (0.7 - 1.2 mg/dL) 1.7 H Estimated GFR (>60 ml/min) 40 L BUN/Creatinine Ratio (7 - 25 %) 22.9 Magnesium (1.6 - 2.3 mg/dL) 1.6 Hematology CBC w Diff MAN DIFF ORDERED WBC (4.8 - 10.8 /CUMM) 1.9 L RBC (4.70 - 6.10 /CUMM) 3.07 L Hgb (14.0 - 18.0 G/DL) 8.6 L Hct (42 - 52 %) 25.4 L MCV (80.0 - 94.0 FL) 82.9 MCH (27.0 - 31.0 PG) 28.0 MCHC (33.0 - 37.0 G/DL) 33.8 RDW (11.5 - 14.5 %) 13.9 Plt Count (130 - 400 /CUMM) 256 MPV (7.4 - 10.4 FL) 8.3 Gran % (42.2 - 75.2 %) 42.2 Lymphocytes % (20.5 - 51.1 %) 21.3 Monocytes % (1.7 - 9.3 %) 33.3 H Eosinophils % (0 - 5 %) 2.8 Basophils % (0.0 - 2.0 %) 0.4 Absolute Granulocytes (1.4 - 6.5 /CUMM) 0.8 L Segmented Neutrophils (42.2 - 75.2 %) 36 L Band Neutrophils (0.0 - 5.0 %) 4 Absolute Lymphocytes (1.2 - 3.4 /CUMM) 0.4 L Lymphocytes (20.5 - 51.1 %) 19 L Monocytes (1.7 - 9.3 %) 34 H Absolute Monocytes (0.10 - 0.60 /CUMM) 0.6 Eosinophils (0 - 5.0 %) 5 Absolute Eosinophils (0.0 - 0.7 /CUMM) 0.1 Basophils (0.0 - 2.0 %) 2 Absolute Basophils (0.0 - 0.2 /CUMM) 0 Platelet Estimate (ADEQUATE) VERIFIED BY SMEAR Normocytic RBCs VERIFIED Normochromic RBCs VERIFIED Miscellaneous Flow Cytometry Specimen Pending Toxicology Random Vancomycin (ug/ml) 11.1 09/26 1755 Hematology CBC w Diff MAN DIFF ORDERED WBC (4.8 - 10.8 /CUMM) 1.9 L RBC (4.70 - 6.10 /CUMM) 3.02 L Hgb (14.0 - 18.0 G/DL) 8.4 L Hct (42 - 52 %) 25.2 L MCV (80.0 - 94.0 FL) 83.4 MCH (27.0 - 31.0 PG) 27.7 MCHC (33.0 - 37.0 G/DL) 33.2 RDW (11.5 - 14.5 %) 14.0 Plt Count (130 - 400 /CUMM) 227 MPV (7.4 - 10.4 FL) 8.4 Gran % (42.2 - 75.2 %) 40.9 L Lymphocytes % (20.5 - 51.1 %) 20.6 Monocytes % (1.7 - 9.3 %) 30.8 H Eosinophils % (0 - 5 %) 4.9 Basophils % (0.0 - 2.0 %) 2.8 H Absolute Granulocytes (1.4 - 6.5 /CUMM) 0.8 L Segmented Neutrophils (42.2 - 75.2 %) 34 L Band Neutrophils (0.0 - 5.0 %) 4 Absolute Lymphocytes (1.2 - 3.4 /CUMM) 0.4 L Lymphocytes (20.5 - 51.1 %) 17 L Monocytes (1.7 - 9.3 %) 41 H Absolute Monocytes (0.10 - 0.60 /CUMM) 0.6 Eosinophils (0 - 5.0 %) 4 Absolute Eosinophils (0.0 - 0.7 /CUMM) 0.1 Absolute Basophils (0.0 - 0.2 /CUMM) 0.1 Platelet Estimate (ADEQUATE) VERIFIED BY SMEAR Normochromic RBCs VERIFIED Poikilocytosis FEW Ovalocytes FEW Other Body Source Fld Total RBCs Counted (%) 100 09/26 09/26 0647 0600 Chemistry Sodium (137 - 145 mmol/L) 135 L Potassium (3.5 - 5.1 mmol/L) 4.3 Chloride (98 - 107 mmol/L) 100 Carbon Dioxide (22 - 30 mmol/L) 22 Anion Gap (5 - 16) 12 BUN (9 - 20 mg/dL) 41 H Creatinine (0.7 - 1.2 mg/dL) 1.5 H Estimated GFR (>60 ml/min) 46 L Iron (49 - 181 ug/dL) 28 L Ferritin (17.9 - 464 ng/mL) 1760.0 H Vitamin B12 (239 - 931 pg/mL) > 1000 H Folate (2.76 - 20.0 ng/mL) 12.2 Hematology CBC w Diff MAN DIFF ORDERED WBC (4.8 - 10.8 /CUMM) 1.9 L RBC (4.70 - 6.10 /CUMM) 2.81 L Hgb (14.0 - 18.0 G/DL) 7.8 L Hct (42 - 52 %) 23.5 L MCV (80.0 - 94.0 FL) 83.5 MCH (27.0 - 31.0 PG) 27.8 MCHC (33.0 - 37.0 G/DL) 33.3 RDW (11.5 - 14.5 %) 13.8 Plt Count (130 - 400 /CUMM) 212 MPV (7.4 - 10.4 FL) 8.6 Gran % (42.2 - 75.2 %) 49.7 Lymphocytes % (20.5 - 51.1 %) 18.5 L Monocytes % (1.7 - 9.3 %) 26.4 H Eosinophils % (0 - 5 %) 4.5 Basophils % (0.0 - 2.0 %) 0.9 Absolute Granulocytes (1.4 - 6.5 /CUMM) 0.9 L Segmented Neutrophils (42.2 - 75.2 %) 49 Absolute Lymphocytes (1.2 - 3.4 /CUMM) 0.4 L Lymphocytes (20.5 - 51.1 %) 20 L Monocytes (1.7 - 9.3 %) 28 H Absolute Monocytes (0.10 - 0.60 /CUMM) 0.5 Eosinophils (0 - 5.0 %) 3 Absolute Eosinophils (0.0 - 0.7 /CUMM) 0.1 Absolute Basophils (0.0 - 0.2 /CUMM) 0 Platelet Estimate (ADEQUATE) VERIFIED BY SMEAR Normocytic RBCs VERIFIED Normochromic RBCs VERIFIED Toxicology Random Vancomycin (ug/ml) 19.5 Tacrolimus (() mcg/L) 16.5 Assessment/Plan Assessment/Plan POD0 sp Ultrasound-guided left common femoral artery access, Aortogram, right leg angiogram, Angioplasty of right peroneal artery secondary to Right foot ischemia with nonhealing wound and osteomyelitis no hematoma post op, continue to monitor post op bedrest until 2100 tonight. mucomyst for 2 more doses Ok per vascular surgery for Eliquis to restart tomorrow follow nephrology rec. Care per medical team.
--- NOTE | 2017-09-27 16:20 | Operative Report ---
Operative/Inv Procedure Report Surgery Date: 09/27/17 Name of Procedure: 1 open incision and drainage deep to the D fashion with exposure of the extensor and flexor tendon and tendon sheath multiple sites right foot 2 revisional, partial first ray resection right foot 3 intraoperative administration of negative pressure wound therapy 4 intraoperative administration of ankle block anesthesia 5 excisional debridement Pre-Operative Diagnosis: 1 open necrotic wound right foot 2 osteomyelitis right foot 3 severe peripheral arterial disease Post-Operative Diagnosis: The same Estimated Blood Loss: less than 50ml Surgeon/Recyclable Materials Distributor: PRASHANT MORGAN DPM Anesthesia: moderate sedation, block Operative/Procedure Note Note: After obtaining informed consent the patient was brought to the operating room and placed on the operating table in the supine position. After administration of IV sedation, the vascular service prepped the groin to allow for access and imaging of the patient's right lower extremity. The patient underwent a diagnostic angiography with angioplasty of the peroneal artery. Following this, the right lower extremity was scrubbed and prepped and 10 mL of 0.5% Marcaine plain was infiltrated about the patient's right ankle. Attention directed to the right foot, where a large full-thickness chronic was identified. A 15 blade visualized sharply revised skin margins. Dissection was then carried down deep to the deep fascia with exposure of the extensor and flexor tendon and tendon sheath multiple sites, both proximally and distally. All necrotic, nonviable infected tissue sharply evacuated wound bed. Dissection was then carried down to the periosteum overlying the distal stump the first metatarsal, which was incised reflected. A sagittal bone saw was utilized performed through and through osteotomy distal osseous segment was freed and passed from the operative field. Specimen sent for pathologic inspection. Nipple was then irrigated with 3 L of normal sterile saline infusion 50,000 units of bacitracin. Following this, the foot was redraped and the surgeon's top was changed clean gloves. Any bleeding vessels identified were cauterized or ligated as encountered. Next, negative pressure wound therapy was placed within the wound bed followed by the application of Kerlix and an Qasim wrap. The patient noted tolerable to procedure and anesthesia well and the patient was transported from the operating room to recovery with vital signs stable
--- NOTE | 2017-09-27 17:34 | RADIOLOGY REPORT ---
EXAMINATION: INTRAOPERATIVE FLUOROSCOPY DURING RIGHT LOWER EXTREMITY ARTERIOGRAM AND ANGIOPLASTY CLINICAL INDICATION: Intraoperative fluoroscopy provided. COMPARISON: None. TECHNIQUE: The procedure was performed by Dr. Pereira in the operating room. FLUOROSCOPY TIME: 42 minutes 12 seconds. Number of images: 29 FINDINGS: Submitted images demonstrate right lower extremity arteriogram. IMPRESSION: Intraoperative fluoroscopy was utilized by Dr. Pereira during right lower extremity arteriogram and angioplasty. Please refer to the operative report for a detailed description of the procedure and the real-time findings made and acted upon by the surgeon.
[2017-09-27 17:40] VITALS: BP 118/56
[2017-09-27 22:36] VITALS: BP 114/58
[2017-09-28 07:52] VITALS: BP 108/62
[2017-09-28 08:07] LABS: ABSOLUTE BASOPHIL COUNT 0 /CUMM (0.0-0.2); ABSOLUTE EOSINOPHIL COUNT 0.1 /CUMM (0.0-0.7); ABSOLUTE GRANULOCYTE CT 0.4 /CUMM (1.4-6.5); ABSOLUTE LYMPH COUNT 0.3 /CUMM (1.2-3.4); ABSOLUTE MONOCYTE COUNT 0.4 /CUMM (0.10-0.60); BASOPHIL % 1.7 % (0.0-2.0); EOSINOPHIL % 7.6 % (0-5); GRANULOCYTE % 32.4 % (42.2-75.2); HEMATOCRIT 23.7 % (42-52); MEAN CORPUSCULAR HGB 27.7 PG (27.0-31.0); MEAN CORPUSCULAR HGB CONC 33.1 G/DL (33.0-37.0); MEAN CORPUSCULAR VOLUME 83.7 FL (80.0-94.0); MEAN PLATELET VOLUME 8.1 FL (7.4-10.4); PLATELET COUNT 279 /CUMM (130-400); RBC DISTRIBUTION WIDTH 14.4 % (11.5-14.5); RED BLOOD CELL CT 2.84 /CUMM (4.70-6.10)
--- NOTE | 2017-09-28 08:28 | PN- Diabetes ---
Assessment/Plan Diabetes Assessment: Patient is a 71-year-old male with a PMH significant for ESRD status post renal transplant on tacrolimus and CellCept, paroxysmal atrial fibrillation on Eliquis , HTN, HLD, CVA, DM type 2, with recent admission to [facility] for osteomyelitis, status post amputation of the toes, was admitted for chronic right foot infection. He underwent angiogram, angioplasty of right peroneal artery, right foot procedure and wound vac placement on 09/27/2017. Patient was very confused yesterday. Levemir was held. His FSGs were 161, 247, 283 and 269. Now he has been kept NPO again for TESS. He is receiving NS 75 ml/hour. Plan: 1. Levemir 13 units at 10 am today; 2. after he is back from TESS and ready to eat meals, please restart his Novolog coverage before meals and Novolog coverage at bedtime. Novolog coverage before meals FSG 80-150, 3 units 151-200, 4 units 201-250, 5 units 251-300, 7 units 301-350, 9 units 351-400, 11 units > 400, 13 units Novolog coverage at bedtime FSG < 250, no coverage 251-300, 2 units 301-350, 3 units 351-400, 4 units > 400, 5 units 3. monitor FSGs. will follow. Subjective Subjective: He is alert and oriented today. Objective Last 24 Hrs of Vital Signs/I&O Vital Signs Date Time Temp Pulse Resp B/P B/P Pulse O2 O2 Flow FiO2 Mean Ox Delivery Rate 09/28 0752 98.0 68 18 108/62 95 Nasal Cannula 09/27 2236 97.5 63 18 114/58 96 09/27 1817 120/58 09/27 1816 120/58 09/27 1752 97.2 09/27 1740 95.9 56 18 118/56 96 09/27 1739 99 Nasal 2.0L Cannula Intake & Output 09/28 1600 09/28 0800 09/28 0000 Intake Total 750 Output Total 350 Balance 750 -350 Intake, IV 600 Intake, Oral 150 Output, Urine 350 Patient 204 lb Weight Findings Pertinent Lab/Joel Results: Laboratory Tests 09/28 0630 Chemistry Sodium (137 - 145 mmol/L) 140 Potassium (3.5 - 5.1 mmol/L) 4.5 Chloride (98 - 107 mmol/L) 105 Carbon Dioxide (22 - 30 mmol/L) 17 L Anion Gap (5 - 16) 18 H BUN (9 - 20 mg/dL) 44 H Creatinine (0.7 - 1.2 mg/dL) 2.0 H Estimated GFR (>60 ml/min) 33 L BUN/Creatinine Ratio (7 - 25 %) 22.0 Magnesium (1.6 - 2.3 mg/dL) 1.8 Hematology CBC w Diff Pending WBC Pending RBC Pending Hgb Pending Hct Pending MCV Pending MCH Pending MCHC Pending RDW Pending Plt Count Pending MPV Pending Toxicology Random Vancomycin (ug/ml) 14.1
--- NOTE | 2017-09-28 08:58 | PN- Pulmonary ---
Subjective HPI/Critical Care Issues: Doing better today Yesterdays events and data reviewed Less confusion today AAO x 3 S/p angio yesterday Follow up cultures are neg so far Objective Current Medications: Current Medications Sig/Ira Start time Last Medication Dose Route Stop Time Status Admin Acetaminophen 650 MG Q6P PRN 09/22 1600 AC 09/25 PO 2131 Acetylcysteine 1,200 MG Q12 09/26 1615 DC 09/28 PO 09/27 2201 0639 Al Hydroxide/Mg 30 ML Q4-6 PRN PRN 09/22 1645 DC Hydroxide PO Amiodarone HCl 100 MG DAILY 09/23 1000 AC 09/27 PO 1816 Apixaban 2.5 MG BID 09/28 1000 AC PO Atorvastatin Calcium 10 MG 1700 09/23 1700 AC 09/27 PO 1818 Benzocaine/Menthol 1 CELIA Q2P PRN 09/24 0615 DC 09/24 PO 1502 Bupropion HCl 100 MG DAILY 09/23 1000 DC 09/26 PO 0849 Calcium/Vitamin D 500 MG DAILY 09/22 1929 AC 09/27 PO 1815 Dexmedetomidine HCl 200 MCG .STK-MED ONE 09/27 1031 DC IV 09/27 1032 Dicyclomine HCl 20 MG 4 TIMES/DAY 09/22 1800 DC 09/26 PO 2052 Escitalopram Oxalate 10 MG DAILY 09/23 1000 AC 09/27 PO 1815 Fentanyl Citrate 250 MCG .STK-MED ONE 09/27 1031 DC IM 09/27 1032 Folic Acid 2.5 MG DAILY 09/26 1345 DC 09/26 PO 10/02 1001 1715 Insulin Aspart 0 Q4 09/28 0000 AC 09/28 SC 0649 Insulin Aspart 0 TIDAC/HS 09/27 2100 DC 09/27 SC 09/27 2355 2130 Insulin Aspart 0 Q4 09/27 0200 DC SC Insulin Detemir 13 UNITS 8AM 09/27 0800 AC SC Leucovorin Calcium 25 MG DAILY 09/28 1000 AC PO 10/03 1001 Leucovorin Calcium 25 MG ONCE ONE 09/27 0900 DC 09/27 PO 09/27 0901 1813 Magnesium Oxide 400 MG ONE ONE 09/27 1345 DC PO 09/27 1346 Magnesium Oxide 400 MG ONE ONE 09/27 1030 DC 09/27 PO 09/27 1031 1812 Metoprolol Succinate 12.5 MG DAILY 09/23 1000 AC 09/27 PO 1817 Morphine Sulfate 2 MG Q4P PRN 09/22 1900 DC 09/24 IV 2125 Mycophenolate Mofetil 1,000 MG BID 09/22 2200 AC 09/28 PO 0637 Ondansetron HCl 8 MG .STK-MED ONE 09/27 1031 DC IM 09/27 1032 Sodium Chloride 1,000 ML Q20H 09/27 1800 CAN IV Sodium Chloride 1,000 ML Q13H 09/26 1800 AC 09/27 IV 1817 Tacrolimus 2 MG 09/24 0600 AC 09/28 PO 0638 Tacrolimus 1.5 MG 09/24 0600 AC 09/28 PO 0639 Vancomycin HCl 1,000 MG ONCE ONE 09/27 0845 DC 09/27 Dextrose/Water 250 ML IV 09/27 0944 1009 Vital Signs & I&O Last 24 Hrs of Vitals and I&O: Vital Signs Date Time Temp Pulse Resp B/P B/P Pulse O2 O2 Flow FiO2 Mean Ox Delivery Rate 09/28 0752 98.0 68 18 108/62 95 Nasal Cannula 09/27 2236 97.5 63 18 114/58 96 09/27 1817 120/58 09/27 1816 120/58 09/27 1752 97.2 09/27 1740 95.9 56 18 118/56 96 09/27 1739 99 Nasal 2.0L Cannula Intake & Output 09/28 1600 09/28 0800 09/28 0000 Intake Total 750 Output Total 350 Balance 750 -350 Intake, IV 600 Intake, Oral 150 Output, Urine 350 Patient 204 lb Weight Laboratory Tests 09/28 09/27 0630 0645 Chemistry Sodium (137 - 145 mmol/L) 140 139 Potassium (3.5 - 5.1 mmol/L) 4.5 4.3 Chloride (98 - 107 mmol/L) 105 103 Carbon Dioxide (22 - 30 mmol/L) 17 L 20 L Anion Gap (5 - 16) 18 H 16 BUN (9 - 20 mg/dL) 44 H 39 H Creatinine (0.7 - 1.2 mg/dL) 2.0 H 1.7 H Estimated GFR (>60 ml/min) 33 L 40 L BUN/Creatinine Ratio (7 - 25 %) 22.0 22.9 Magnesium (1.6 - 2.3 mg/dL) 1.8 1.6 Hematology CBC w Diff Pending MAN DIFF ORDERED WBC (4.8 - 10.8 /CUMM) Pending 1.9 L RBC (4.70 - 6.10 /CUMM) Pending 3.07 L Hgb (14.0 - 18.0 G/DL) Pending 8.6 L Hct (42 - 52 %) Pending 25.4 L MCV (80.0 - 94.0 FL) Pending 82.9 MCH (27.0 - 31.0 PG) Pending 28.0 MCHC (33.0 - 37.0 G/DL) Pending 33.8 RDW (11.5 - 14.5 %) Pending 13.9 Plt Count (130 - 400 /CUMM) Pending 256 MPV (7.4 - 10.4 FL) Pending 8.3 Gran % (42.2 - 75.2 %) 42.2 Lymphocytes % (20.5 - 51.1 %) 21.3 Monocytes % (1.7 - 9.3 %) 33.3 H Eosinophils % (0 - 5 %) 2.8 Basophils % (0.0 - 2.0 %) 0.4 Absolute Granulocytes (1.4 - 6.5 /CUMM) 0.8 L Segmented Neutrophils (42.2 - 75.2 %) 36 L Band Neutrophils (0.0 - 5.0 %) 4 Absolute Lymphocytes (1.2 - 3.4 /CUMM) 0.4 L Lymphocytes (20.5 - 51.1 %) 19 L Monocytes (1.7 - 9.3 %) 34 H Absolute Monocytes (0.10 - 0.60 /CUMM) 0.6 Eosinophils (0 - 5.0 %) 5 Absolute Eosinophils (0.0 - 0.7 /CUMM) 0.1 Basophils (0.0 - 2.0 %) 2 Absolute Basophils (0.0 - 0.2 /CUMM) 0 Platelet Estimate (ADEQUATE) VERIFIED BY SMEAR Normocytic RBCs VERIFIED Normochromic RBCs VERIFIED Miscellaneous Flow Cytometry Specimen Pending Toxicology Random Vancomycin (ug/ml) 14.1 11.1 09/26 1755 Hematology CBC w Diff MAN DIFF ORDERED WBC (4.8 - 10.8 /CUMM) 1.9 L RBC (4.70 - 6.10 /CUMM) 3.02 L Hgb (14.0 - 18.0 G/DL) 8.4 L Hct (42 - 52 %) 25.2 L MCV (80.0 - 94.0 FL) 83.4 MCH (27.0 - 31.0 PG) 27.7 MCHC (33.0 - 37.0 G/DL) 33.2 RDW (11.5 - 14.5 %) 14.0 Plt Count (130 - 400 /CUMM) 227 MPV (7.4 - 10.4 FL) 8.4 Gran % (42.2 - 75.2 %) 40.9 L Lymphocytes % (20.5 - 51.1 %) 20.6 Monocytes % (1.7 - 9.3 %) 30.8 H Eosinophils % (0 - 5 %) 4.9 Basophils % (0.0 - 2.0 %) 2.8 H Absolute Granulocytes (1.4 - 6.5 /CUMM) 0.8 L Segmented Neutrophils (42.2 - 75.2 %) 34 L Band Neutrophils (0.0 - 5.0 %) 4 Absolute Lymphocytes (1.2 - 3.4 /CUMM) 0.4 L Lymphocytes (20.5 - 51.1 %) 17 L Monocytes (1.7 - 9.3 %) 41 H Absolute Monocytes (0.10 - 0.60 /CUMM) 0.6 Eosinophils (0 - 5.0 %) 4 Absolute Eosinophils (0.0 - 0.7 /CUMM) 0.1 Absolute Basophils (0.0 - 0.2 /CUMM) 0.1 Platelet Estimate (ADEQUATE) VERIFIED BY SMEAR Normochromic RBCs VERIFIED Poikilocytosis FEW Ovalocytes FEW Other Body Source Fld Total RBCs Counted (%) 100 Microbiology Date/Time Procedure - Status Source Growth 09/26 0820 Urine Culture - RES URINE ROUT Tacrolimus level 16 Impression/Plan Impression/Plan Impression/Plan: PRocedure done on 09/27 [facility] Ultrasound-guided left common femoral artery access, Aortogram, right leg angiogram, Angioplasty of right peroneal artery secondary to Right foot ischemia with nonhealing wound and osteomyelitis PODIATRY Surgery Date: 09/27/17 Name of Procedure: 1 open incision and drainage deep to the D fashion with exposure of the extensor and flexor tendon and tendon sheath multiple sites right foot 2 revisional, partial first ray resection right foot 3 intraoperative administration of negative pressure wound therapy 4 intraoperative administration of ankle block anesthesia 5 excisional debridement Impression/Plan: General Appearance: well developed/nourished, alert, awake, anxious, mild distress Head: atraumatic, normal appearance Eyes: Bilateral: normal appearance, PERRL, EOMI. Ears, Nose, Throat: normal pharynx, normal ENT inspection, hearing grossly normal Neck: normal inspection, supple, full range of motion, no midline tenderness Respiratory: normal breath sounds, chest non-tender, no respiratory distress, quiet respiration, lungs clear Cardiovascular: normal peripheral pulses, irregularly irregular, norml femoral pulses equa Peripheral Pulses: 4+ carotid (R), 4+ carotid (L) Gastrointestinal: normal bowel sounds, soft, non-tender, no organomegaly Back: normal inspection, normal range of motion, no vertebral tenderness Extremities: no edema, pelvis stable,s/p debridement and in dressing Neurologic/Psych: no motor/sensory deficits, awake, alert, oriented x 2 Confused at times and easily redirectable , normal mood/affect, mapping specialist II-XII 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 Lymphatic: no anterior cervical fortunato avf intact IMPRESSION This is a gentleman with s/p renal transplant with infected toe with osteo s/p surg recently with amputation and sub delayed closure who had ecoli and staph was dcd recently off abx as his stump was clean and all his infected tissue had been excised now with * Infected foot with fever on admission- in a pt who is immunosupp (recent toe amputation with osteo, s/p complete debridement of osteo with toe amputation and wound closure on 09/09/17) now - MRSA infection and sepsis, now s/p angioplasty of peroneal artery and wound redebridement of the foot * 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 by TTE TESS pending * REsolved delirium without neuro deficit, Rule out intracranial abscess, head ct neg mri pending * Prolonged qtc, previous low mag need to continue to monitor * SHIRA with CKD s/p renal transplant, creat now 2.0 - shira initially with sepsis and now s/p angio with contrast * On immunosupp rx, with leukopenia( see heme note ) and hence sig immunosupp * DM insulin requiring endo onboard * PVD, previous history of stoke, and previous toe amputation, now angioplasty * Previous secondary hyperparathyroid * Sig autonomic dysfunction on fludocortisone * Pafib on eliquis (in sinus on amiodarone) (held for angio today) * Depression and anxiety * Peripheral neuropathy * Mild ekg changes with slight elevated troponin stable REC * MRI head and TESS * Cont abx, dose vanco per level * ID and Podiatry, vascular, Cardio,Endo and renal following * IV abx per ID * See Onc note * EKG monitoring per cardio * Check mag and keep more than 2 * COnt immunosupp rx * Cont metoprolol, statin, amio, antidepressant lexapro * DC ivf after TESS
--- NOTE | 2017-09-28 09:50 | PN- Housestaff ---
Subjective Follow-up For: Osteomyelitis Positive blood cultures New left bundle branch block SHIRA in Renal transplant patient Subjective: No acute events overnight. Patient was confused and possibly hallucinating yesterday. Patient aox3 and much more alert today. Appears to have returned to original admission baseline. Review of Systems Constitutional: Reports: see HPI. Objective Last 24 Hrs of Vital Signs/I&O Vital Signs Date Time Temp Pulse Resp B/P B/P Pulse O2 O2 Flow FiO2 Mean Ox Delivery Rate 09/28 1448 Nasal 2.0L Cannula 09/28 1440 97.4 66 20 140/70 94 Room Air 09/28 1438 Nasal 2.0L Cannula 09/28 0918 116/60 09/28 0917 116/60 09/28 0752 98.0 68 18 108/62 95 Nasal Cannula 09/27 2236 97.5 63 18 114/58 96 Intake & Output 09/28 1600 09/28 0800 09/28 0000 Intake Total 800 750 Output Total 350 Balance 800 750 -350 Intake, IV 600 600 Intake, Oral 200 150 Number 1 Bowel Movements Output, Urine 350 Patient 204 lb Weight Physical Exam General Appearance: Alert, Oriented X3, Cooperative, No Acute Distress Cardiovascular: irregularly irregular Lungs: Clear to Auscultation, Normal Air Movement Abdomen: Normal Bowel Sounds, Soft, No Tenderness Extremities: R LE covered in dressing and woundvac Current Medications: Current Medications Sig/Ira Start time Last Medication Dose Route Stop Time Status Admin Acetaminophen 650 MG Q6P PRN 09/22 1600 AC 09/25 PO 2131 Acetylcysteine 1,200 MG Q12 09/26 1615 DC 09/28 PO 09/27 2201 0639 Amiodarone HCl 100 MG DAILY 09/23 1000 AC 09/28 PO 0918 Apixaban 2.5 MG BID 09/28 1000 AC 09/28 PO 0917 Atorvastatin Calcium 10 MG 1700 09/23 1700 DC 09/27 PO 1818 Calcium/Vitamin D 500 MG DAILY 09/22 1929 AC 09/28 PO 0917 Daptomycin 500 MG Q24H 09/28 1830 AC Sodium Chloride 50 ML IV Daptomycin 500 MG Q24H 09/28 1530 DC Sodium Chloride 50 ML IV Escitalopram Oxalate 10 MG DAILY 09/23 1000 AC 09/28 PO 0917 Filgrastim 300 MCG DAILY 09/28 1533 AC 09/28 SC 1738 Insulin Aspart 0 TIDAC/HS 09/28 1700 AC 09/28 SC 1818 Insulin Aspart 0 Q4 09/28 1400 CAN SC Insulin Aspart 0 Q4 09/28 0000 DC 09/28 SC 0916 Insulin Aspart 0 TIDAC/HS 09/27 2100 DC 09/27 SC 09/27 2355 2130 Insulin Detemir 13 UNITS 8AM 09/27 0800 AC 09/28 SC 0916 Leucovorin Calcium 25 MG DAILY 09/28 1000 AC 09/28 PO 10/03 1001 0928 Lidocaine 0 .STK-MED ONE 09/28 0903 DC TOP Magnesium Oxide 400 MG ONE ONE 09/28 1430 DC 09/28 PO 09/28 1431 1739 Metoprolol Succinate 12.5 MG DAILY 09/23 1000 AC 09/28 PO 0917 Mycophenolate Mofetil 1,000 MG BID 09/22 2200 DC 09/28 PO 0637 Non-Formulary 0 SEE ADMIN CRITERIA 09/28 1430 CAN Medication ANY Sodium Chloride 1,000 ML Q13H 09/26 1800 DC 09/28 IV 1032 Tacrolimus 2 MG 0900 09/29 0900 AC PO Tacrolimus 1.5 MG 0900 09/29 0900 AC PO Tacrolimus 2 MG 0600 09/24 0600 DC 09/28 PO 0638 Tacrolimus 1.5 MG 0600 09/24 0600 DC 09/28 PO 0639 Last 24 Hrs of Lab/Joel Results Last 24 Hrs of Labs/Mics: Laboratory Tests 09/28/17 1620: CMV Specimen Source Pending, CMV DNA PCR log IU/mL Pending, CMV DNA PCR IU/mL Pending 09/28/17 1455: Creatine Kinase 81 09/28/17 0630: Anion Gap 18 H, Estimated GFR 33 L, BUN/Creatinine Ratio 22.0, Magnesium 1.8, CBC w Diff MAN DIFF ORDERED, RBC 2.84 L, MCV 83.7, MCH 27.7, MCHC 33.1, RDW 14.4, MPV 8.1, Gran % 32.4 L, Lymphocytes % 26.4, Monocytes % 31.9 H, Eosinophils % 7.6 H, Basophils % 1.7, Absolute Granulocytes 0.4 L, Absolute Lymphocytes 0.3 L, Absolute Monocytes 0.4, Absolute Eosinophils 0.1, Absolute Basophils 0, Platelet Estimate VERIFIED BY SMEAR, Normocytic RBCs VERIFIED, Normochromic RBCs VERIFIED, Random Vancomycin 14.1 03/28/18 0600: Tacrolimus Pending Assessment/Plan Assessment: Patient is a 71-year-old male with a PMH significant for ESRD status post renal transplant on tacrolimus and CellCept, paroxysmal atrial fibrillation on Eliquis , HTN, HLD, CVA, DM, with recent admission to [facility] for osteomyelitis , status post amputation of the right and left third toes and left great toe who presented to the [facility] ED complaining of a several day history of malaise, nausea, vomiting, diarrhea, poor appetite found to have 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 Problem list #Sepsis 2/ to R foot osteomyelitils MAXIMUM TEMPERATURE 98 in 24 hours WBC 1.2, 0 bands CRP >9 Blood cultures + for MRSA Surgical cultures + for MRSA Arterial Doppler: Decreased flow is noted within the right anterior tibial artery, lower part of the left popliteal, and posterior tibial, anterior tibial and dorsalis pedis arteries. Echocardiogram reveals possible vegetation, with MRI + for foci -f/u baseline cpk -Patient s/p angioplasty today -f/u TESS results - switch to daptomycin from [facility]. wy'ed statin due to risk of rhabdo #Altered mental status/hallucinations Suddent onset of hallucinatinations and AMS starting last night Head CT negative -improved after stopping dicyclomine, morphine , burproprion #neurtopenia WBC 1.2 -perpherial flow cytometry suggesting BM biopsy for MDS -Continue neutropenic diet and precautions -Follow-up hematology oncology recs #SHIRA on CKD History of renal transplant Creatinine 1.7 (baseline 1.2) Tacrolimus level 16.5 -f/u cmv viral load -? starting neuprogen if ok by heme onc -dc mycophenolate -daily tacrolimus levels -Continue tacrolimus 3.5 mg daily -Follow nephrology recommendations -Continue calcium/vitamin D #H/H drop / anemia CBC 05/02 (september 22) now 7.9/23.7 Folate 12.2, B12 >1000, ferritin >1760, iron 28 -Continue folinic acid 25 mg X7 days -f/u peripheral blood flow cytometry as stated above -Npehro okay with EPO. will touch base with heme-onc regarding start date -Continue to monitor #diabtes Maintain blood sugars less than 150 -cont endo recs #New onset left bundle branch block/mild elevated troponins Troponins 0.04, 0.18, 0.13 -Mild elevated troponins likely secondary to infection -Continue to follow cardiology recommendations #Chronic medical problems including PVD, paroxysmal A. fib, HTN, HLD, -Continue metoprolol, amiodarone, escitalopram, bupropion, apixaban, dicyclomine , Maalox, DVT prophylaxis: Eliquis after surgery. Currently held for surgery CODE STATUS: Full code Problem List: 1. Left bundle branch block 2. Renal transplant rejection 3. Osteomyelitis 4. SHIRA (acute kidney injury) Pain Ratin Pain Location: R foot Pain Goal: Pain 4 or less Pain Plan: pain pathway Tomorrow's Labs & Rationales: cbc bep mag tacrolimus levels daily
--- NOTE | 2017-09-28 10:50 | PN- Infect Dx ---
Subjective Subjective: Afebrile. He complains of tightness secondary to the bandage around the right foot. He also reports multiple dark stools, which was not substantiated by his nurse. Objective Last 24 Hrs of Vital Signs/I&O Vital Signs Date Time Temp Pulse Resp B/P B/P Pulse O2 O2 Flow FiO2 Mean Ox Delivery Rate 09/28 0918 116/60 09/28 0917 116/60 09/28 0752 98.0 68 18 108/62 95 Nasal Cannula 09/27 2236 97.5 63 18 114/58 96 09/27 1817 120/58 09/27 1816 120/58 09/27 1752 97.2 09/27 1740 95.9 56 18 118/56 96 09/27 1739 99 Nasal 2.0L Cannula Intake & Output 09/28 1600 09/28 0800 09/28 0000 Intake Total 750 Output Total 350 Balance 750 -350 Intake, IV 600 Intake, Oral 150 Output, Urine 350 Patient 204 lb Weight Physical Exam Other Physical Findings: He remains somewhat confused but much improved from yesterday with no agitation Lungs are clear Heart regular rhythm with a 1/6 systolic ejection murmur Abdomen is soft, nontender with positive bowel sounds Extremities right foot dressing intact, with wound VAC in place Results Last 24 Hours of Lab Results: Laboratory Tests 09/28 0630 Chemistry Sodium (137 - 145 mmol/L) 140 Potassium (3.5 - 5.1 mmol/L) 4.5 Chloride (98 - 107 mmol/L) 105 Carbon Dioxide (22 - 30 mmol/L) 17 L Anion Gap (5 - 16) 18 H BUN (9 - 20 mg/dL) 44 H Creatinine (0.7 - 1.2 mg/dL) 2.0 H Estimated GFR (>60 ml/min) 33 L BUN/Creatinine Ratio (7 - 25 %) 22.0 Magnesium (1.6 - 2.3 mg/dL) 1.8 Hematology CBC w Diff MAN DIFF ORDERED WBC (4.8 - 10.8 /CUMM) 1.2 *L RBC (4.70 - 6.10 /CUMM) 2.84 L Hgb (14.0 - 18.0 G/DL) 7.9 L Hct (42 - 52 %) 23.7 L MCV (80.0 - 94.0 FL) 83.7 MCH (27.0 - 31.0 PG) 27.7 MCHC (33.0 - 37.0 G/DL) 33.1 RDW (11.5 - 14.5 %) 14.4 Plt Count (130 - 400 /CUMM) 279 MPV (7.4 - 10.4 FL) 8.1 Gran % (42.2 - 75.2 %) 32.4 L Lymphocytes % (20.5 - 51.1 %) 26.4 Monocytes % (1.7 - 9.3 %) 31.9 H Eosinophils % (0 - 5 %) 7.6 H Basophils % (0.0 - 2.0 %) 1.7 Absolute Granulocytes (1.4 - 6.5 /CUMM) 0.4 L Absolute Lymphocytes (1.2 - 3.4 /CUMM) 0.3 L Absolute Monocytes (0.10 - 0.60 /CUMM) 0.4 Absolute Eosinophils (0.0 - 0.7 /CUMM) 0.1 Absolute Basophils (0.0 - 0.2 /CUMM) 0 Platelet Estimate (ADEQUATE) VERIFIED BY SMEAR Normocytic RBCs VERIFIED Normochromic RBCs VERIFIED Toxicology Random Vancomycin (ug/ml) 14.1 Last 24 Hours of Joel Results: Urine culture September 26 negative Blood cultures 2 September 24 negative Recent Imaging Studies: CT of the head September 27 no acute process Assessment/Plan ID Impression: Improvement in his mental status, suggesting that his agitation and confusion yesterday were medication related, though he remains somewhat confused. He remains afebrile on Vancomycin, now Day 6 of treatment for MRSA sepsis/possible aortic valve endocarditis secondary to a necrotic wound/osteomyelitis of the right foot status post revisional partial first ray resection and placement of a wound VAC yesterday, at which time he also underwent angioplasty of the right peroneal artery. His white blood cell count has decreased further and, though his immunosuppressive medication may be, at least in part, contributing, may need to implicate the Vancomycin, and, with his increasing creatinine, feel that this will need to be discontinued and replaced with an alternative treatment for the MRSA. He is scheduled for a TESS later today. Suggestion: 1. Renal and Hematology follow-up regarding his decreasing white blood cell count and immunosuppressive therapy 2. Await TESS 3. Begin Daptomycin 500 mg IV every 24 hours and check a baseline CPK
--- NOTE | 2017-09-28 13:03 | PN- Cardiology ---
Subjective Subjective: doing somewhat better today. Mental status improved Objective Vital Signs and I&Os Vital Signs Date Time Temp Pulse Resp B/P B/P Pulse O2 O2 Flow FiO2 Mean Ox Delivery Rate 09/28 09 116/60 09/28 09 116/60 09/28 0752 98.0 68 18 108/62 95 Nasal Cannula 09/27 2236 97.5 63 18 114/58 96 09/27 1817 120/58 09/27 1816 120/58 09/27 1752 97.2 09/27 1740 95.9 56 18 118/56 96 09/27 1739 99 Nasal 2.0L Cannula Intake & Output 09/28 1600 09/28 0800 09/28 0000 09/27 1600 09/27 0800 09/27 0000 Intake Total 750 700 120 Output Total 350 150 Balance 750 -350 700 -30 Intake, IV 600 700 Intake, Oral 150 120 Output, Urine 350 150 Patient 204 lb 196 lb Weight Current Medications: Current Medications Sig/Ira Start time Last Medication Dose Route Stop Time Status Admin Acetaminophen 650 MG Q6P PRN 09/22 1600 AC 09/25 PO 2131 Acetylcysteine 1,200 MG Q12 09/26 1615 DC 09/28 PO 09/27 2201 0639 Amiodarone HCl 100 MG DAILY 09/23 1000 AC 09/28 PO 0918 Apixaban 2.5 MG BID 09/28 1000 AC 09/28 PO 0917 Atorvastatin Calcium 10 MG 1700 09/23 1700 AC 09/27 PO 1818 Benzocaine/Menthol 1 CELIA Q2P PRN 09/24 0615 DC 09/24 PO 1502 Calcium/Vitamin D 500 MG DAILY 09/22 1929 AC 09/28 PO 0917 Escitalopram Oxalate 10 MG DAILY 09/23 1000 AC 09/28 PO 0917 Insulin Aspart 0 Q4 09/28 0000 AC 09/28 SC 0916 Insulin Aspart 0 TIDAC/HS 09/27 2100 DC 09/27 SC 09/27 2355 2130 Insulin Aspart 0 Q4 09/27 0200 DC SC Insulin Detemir 13 UNITS 8AM 09/27 0800 AC 09/28 SC 0916 Leucovorin Calcium 25 MG DAILY 09/28 1000 AC 09/28 PO 10/03 1001 0928 Lidocaine 0 .STK-MED ONE 09/28 0903 DC TOP Magnesium Oxide 400 MG ONE ONE 09/27 1345 DC PO 09/27 1346 Metoprolol Succinate 12.5 MG DAILY 09/23 1000 AC 09/28 PO 0917 Mycophenolate Mofetil 1,000 MG BID 09/22 2200 AC 09/28 PO 0637 Sodium Chloride 1,000 ML Q20H 09/27 1800 CAN IV Sodium Chloride 1,000 ML Q13H 09/26 1800 AC 09/28 IV 1032 Tacrolimus 2 MG 09/24 0600 AC 09/28 PO 0638 Tacrolimus 1.5 MG 09/24 0600 AC 09/28 PO 0639 Results Last 48 Hrs of Labs/Mics: Laboratory Tests 09/28/17 0630: Anion Gap 18 H, Estimated GFR 33 L, BUN/Creatinine Ratio 22.0, Magnesium 1.8, CBC w Diff MAN DIFF ORDERED, RBC 2.84 L, MCV 83.7, MCH 27.7, MCHC 33.1, RDW 14.4, MPV 8.1, Gran % 32.4 L, Lymphocytes % 26.4, Monocytes % 31.9 H, Eosinophils % 7.6 H, Basophils % 1.7, Absolute Granulocytes 0.4 L, Absolute Lymphocytes 0.3 L, Absolute Monocytes 0.4, Absolute Eosinophils 0.1, Absolute Basophils 0, Platelet Estimate VERIFIED BY SMEAR, Normocytic RBCs VERIFIED, Normochromic RBCs VERIFIED, Random Vancomycin 14.1 09/27/17 0645: Anion Gap 16, Estimated GFR 40 L, BUN/Creatinine Ratio 22.9, Magnesium 1.6, CBC w Diff MAN DIFF ORDERED, RBC 3.07 L, MCV 82.9, MCH 28.0, MCHC 33.8, RDW 13.9, MPV 8.3, Gran % 42.2, Lymphocytes % 21.3, Monocytes % 33.3 H, Eosinophils % 2.8 , Basophils % 0.4, Absolute Granulocytes 0.8 L, Segmented Neutrophils 36 L, Band Neutrophils 4, Absolute Lymphocytes 0.4 L, Lymphocytes 19 L, Monocytes 34 H, Absolute Monocytes 0.6, Eosinophils 5, Absolute Eosinophils 0.1, Basophils 2 , Absolute Basophils 0, Platelet Estimate VERIFIED BY SMEAR, Normocytic RBCs VERIFIED, Normochromic RBCs VERIFIED, Flow Cytometry Specimen Pending, Random Vancomycin 11.1 09/26/17 1755: CBC w Diff MAN DIFF ORDERED, RBC 3.02 L, MCV 83.4, MCH 27.7, MCHC 33.2, RDW 14.0, MPV 8.4, Gran % 40.9 L, Lymphocytes % 20.6, Monocytes % 30.8 H, Eosinophils % 4.9, Basophils % 2.8 H, Absolute Granulocytes 0.8 L, Segmented Neutrophils 34 L, Band Neutrophils 4, Absolute Lymphocytes 0.4 L, Lymphocytes 17 L, Monocytes 41 H, Absolute Monocytes 0.6, Eosinophils 4, Absolute Eosinophils 0.1, Absolute Basophils 0.1, Platelet Estimate VERIFIED BY SMEAR, Normochromic RBCs VERIFIED, Poikilocytosis FEW, Ovalocytes FEW, Fld Total RBCs Counted 100 Assessment/Plan Assessment/Plan Assessment: 1. Minimally elevated troponin suggestive of type II SD 2. MRSA bacteremia with evidence of possible aortic valve vegetation on transthoracic echocardiogram 3. Osteomyelitis 4. Abnormal ECG 5. Status post renal transplant 6. Anemia 7. Mild hyponatremia Recommendations: -transesophageal echocardiogram today -Further plans after the TESS results are available. Continue telemetry? No
[2017-09-28 14:40] VITALS: BP 140/70
--- NOTE | 2017-09-28 15:11 | MRI REPORT ---
EXAMINATION: MR BRAIN WITHOUT CONTRAST CLINICAL INFORMATION: Altered mental status. Sepsis with possible vegetation on TESS. COMPARISON: Head CT 09/27/2017. TECHNIQUE: Multiplanar, multisequence imaging of the brain was performed without intravenous contrast. \H\ \N\FINDINGS: There is no evidence of acute infarct, mass, extra-axial collection, or lobar hemorrhage. There are more than 10 punctate foci of susceptibility signal in both cerebral hemispheres and in the left cerebellum which demonstrated a peripheral distribution near the garcia-white junction. This finding raises concern for an embolic etiology. No significant T2 signal abnormality is seen associated with these foci of susceptibility signal. There are moderate scattered and patchy foci of T2 hyperintensity in the bilateral cerebral white matter and in the central santana which is a nonspecific finding but typical of small vessel ischemic changes. The ventricles are normal in size without evidence of hydrocephalus. The major arterial flow voids are preserved at the skull base. There is mild paranasal sinus mucosal thickening without fluid levels. There are bilateral lens replacements. IMPRESSION: 1. No acute infarct, mass lesion, lobar hemorrhage, or evidence of hydrocephalus. 2. More than 10 punctate foci of susceptibility signal are seen throughout the cerebral hemispheres and in the left cerebellum centered at the garcia-white junction. The etiology of these foci is most likely embolic however the imaging features do not allow discrimination between bland and septic embolism. No significant T2 hyperintensity is seen associated with these susceptibility foci suggesting that a bland etiology is more likely. Postcontrast images (including volumetric images) could be performed to evaluate for any associated enhancement as would be seen in the setting of cerebritis although there are no findings to suggest this at the current time.
--- NOTE | 2017-09-28 15:33 | Cons- Neurology ---
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 Yesterday he became acutely confused and agitated He recalls vaguely that he was yelling to the point where his throat started hurting There was no observed focal weakness There was no head trauma There was no seizure An echocardiogram showed vegetations CAT scan did not show any evidence of infarct Today his symptoms have improved significantly; he recalls only some of what transpired He has not had similar problems previously Allergies/Medications Allergies: Coded Allergies: NO KNOWN ALLERGIES (NONE 09/09/17) Home Med List: Alprazolam 0.5 MG TABLET 1 TAB PO DAILY PRN Anxiety (Reported) Amiodarone (Cordarone) 200 MG TAB 0.5 TAB PO DAILY A.fib (Reported) Apixaban (Eliquis) 5 MG TABLET 1 TAB PO BID Blood Thinner (Reported) Aspirin (Ecotrin*) 81 MG TABLET.DR 1 TAB PO DAILY Heart Health (Reported) Atorvastatin Calcium 10 MG TABLET 1 TAB PO DAILY cholesterol (Reported) Bupropion HCl 100 MG TABLET 1 TAB PO DAILY pain (Reported) Calcitriol 0.25 MCG CAPSULE 1 CAP PO DAILY Bone health (Reported) Calcium (Elemental-Fr Calcarb) (Calcium Antacid) 400 MG CALCIUM (1,000 MG) TAB.CHEW 1,000 MG PO TID Supplement (Reported) Cholecalciferol (Vitamin D3) (Vitamin D-3) 2,000 UNIT TABLET 1 TAB PO DAILY Supplement (Reported) Coenzyme Q10 100 MG CAPSULE 1 CAP PO DAILY Supplement (Reported) Escitalopram Oxalate (Lexapro) 20 MG TABLET 1 TAB PO QPM Anxiety (Reported) Fludrocortisone Acetate 0.1 MG TABLET 1 TAB PO DAILY SUPPLEMENT (Reported) Hydroxychloroquine Sulfate 200 MG TABLET 1 TAB PO DAILY . (Reported) Insulin Glargine,Hum.rec.anlog (Lantus Solostar) 100 UNIT/ML (3 ML) INSULN.PEN 25 UNIT SC DAILY AC Blood sugar (Reported) 26 U daily Insulin Lispro (Humalog) 100 UNIT/ML CARTRIDGE 0 SC TIDAC/HS Blood sugar ( Reported) Please take as follow:\ Blood sugar 80-150 mg/dl: none 151-200 mg/dl: 2 U 201-250 mg/dl: 4 U 251-300 mg/dl: 6 U 301-350 mg/dl: 8 U 351-400 mg/dl: 10 U more than 401 mg/dl: 12 U and call Metoprolol Succ XL (Toprol XL) 25 MG TAB 0.5 TAB PO DAILY HEART HEALTH ( Reported) Mycophenolate Mofetil (Cellcept) 250 MG CAPSULE 4 CAP PO BID Immunotherapy ( Reported) Tacrolimus 1 MG CAPSULE 2 CAP PO DAILY KIDNEY TRANSPLANT (Reported) 3.5MG TOTAL DAILY OF ENVARSUS XR (1MG TABS X2 AND 0.75MG TABS X2) Tacrolimus (Envarsus XR) 0.75 MG TAB.ER.24H 2 TAB PO DAILY TRANSPLANT ( Reported) Vit A,C & E/Lutein/Minerals (Ocuvite With Lutein Tablet) 1,000-60-2 TABLET 1 TAB PO DAILY Supplement (Reported) Current Medications: Current Medications Sig/Ira Start time Last Medication Dose Route Stop Time Status Admin Acetaminophen 650 MG Q6P PRN 09/22 1600 AC 09/25 PO 2131 Acetylcysteine 1,200 MG Q12 09/26 1615 DC 09/28 PO 09/27 2201 0639 Amiodarone HCl 100 MG DAILY 09/23 1000 AC 09/28 PO 0918 Apixaban 2.5 MG BID 09/28 1000 AC 09/28 PO 0917 Atorvastatin Calcium 10 MG 1700 09/23 1700 DC 09/27 PO 1818 Calcium/Vitamin D 500 MG DAILY 09/22 1929 AC 09/28 PO 0917 Daptomycin 500 MG Q24H 09/28 1530 AC Sodium Chloride 50 ML IV Escitalopram Oxalate 10 MG DAILY 09/23 1000 AC 09/28 PO 0917 Insulin Aspart 0 TIDAC/HS 09/28 1700 AC SC Insulin Aspart 0 Q4 09/28 1400 CAN SC Insulin Aspart 0 Q4 09/28 0000 DC 09/28 SC 0916 Insulin Aspart 0 TIDAC/HS 09/27 2100 DC 09/27 SC 09/27 2355 2130 Insulin Aspart 0 Q4 09/27 0200 DC SC Insulin Detemir 13 UNITS 8AM 09/27 0800 AC 09/28 SC 0916 Leucovorin Calcium 25 MG DAILY 09/28 1000 AC 09/28 PO 10/03 1001 0928 Lidocaine 0 .STK-MED ONE 09/28 0903 DC TOP Magnesium Oxide 400 MG ONE ONE 09/28 1430 DC PO 09/28 1431 Metoprolol Succinate 12.5 MG DAILY 09/23 1000 AC 09/28 PO 0917 Mycophenolate Mofetil 1,000 MG BID 09/22 2200 AC 09/28 PO 0637 Non-Formulary 0 SEE ADMIN CRITERIA 09/28 1430 CAN Medication ANY Sodium Chloride 1,000 ML Q13H 09/26 1800 AC 09/28 IV 1032 Tacrolimus 2 MG 09/24 0600 AC 09/28 PO 0638 Tacrolimus 1.5 MG 09/24 0600 AC 09/28 PO 0639 Review of Systems Review of Systems: Denies headache, vertigo, swallowing difficulties He had fever and chills upon admission Denies chest pains, breathing difficulties, nausea vomiting He noted urinary urgency previously but that seems to have improved Pain and swelling right lower extremity distally Not walking presently No loss of consciousness Other systems reviewed and negative Past History Travel History Traveled to [place] past 21 day No Medical History Neurological: STROKE EENT: NONE, glaucoma Cardiovascular: AFIB, hypertension, hyperlipidemia, AFIB (ON COUMADIN) Respiratory: NONE Gastrointestinal: NONE, upper GI bleed Hepatic: NONE Renal: ESRD on HD (in the past), renal transplant Musculoskeletal: fracture, R ARM FRACTURE Psychiatric: NONE Endocrine: diabetes type 2 Blood Disorders: NONE Cancer(s): NONE 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 Surgical History Surgical History: RENAL TRANSPLANT right and left toe amputations secondary to IDDM Family History Relations & Conditions If Any: MOTHER FH: diabetes mellitus Myasthenia gravis FATHER FH myocardial infarction male first degree age known FH: diabetes mellitus Relation not specified for: *No pertinent family history Psychosocial History Smoking Status: Never Smoked Exam & Diagnostic Data Vital Signs and I&O Vital Signs Date Time Temp Pulse Resp B/P B/P Pulse O2 O2 Flow FiO2 Mean Ox Delivery Rate 09/28 1448 Nasal 2.0L Cannula 09/28 1440 97.4 66 20 140/70 94 Room Air 09/28 1438 Nasal 2.0L Cannula 09/28 0918 116/60 09/28 0917 116/60 09/28 0752 98.0 68 18 108/62 95 Nasal Cannula 09/27 2236 97.5 63 18 114/58 96 09/27 1817 120/58 09/27 1816 120/58 09/27 1752 97.2 09/27 1740 95.9 56 18 118/56 96 09/27 1739 99 Nasal 2.0L Cannula Intake & Output 09/28 1600 09/28 0800 09/28 0000 Intake Total 800 750 Output Total 350 Balance 800 750 -350 Intake, IV 600 600 Intake, Oral 200 150 Number 1 Bowel Movements Output, Urine 350 Patient 204 lb Weight Alert no dysarthria Attention span normal Oriented to place but not to exact date although notes the month Not sure how long he has been in hospital Following all commands Recall mildly impaired Comfortable and cooperative Extraocular movements full, pupils equal reactive, fundi couldn't adequately be visualized, no facial weakness or facial sensory loss, palate tongue and shoulders intact, hearing impaired bilaterally Normal tone and strength upper and lower extremities No sensory loss to light touch bilaterally Deep tendon reflexes hypoactive throughout Coordinative functions intact Patient currently not walking Last 48 Hours of Lab Results: Laboratory Tests 09/28 09/28 1455 0630 Chemistry Sodium (137 - 145 mmol/L) 140 Potassium (3.5 - 5.1 mmol/L) 4.5 Chloride (98 - 107 mmol/L) 105 Carbon Dioxide (22 - 30 mmol/L) 17 L Anion Gap (5 - 16) 18 H BUN (9 - 20 mg/dL) 44 H Creatinine (0.7 - 1.2 mg/dL) 2.0 H Estimated GFR (>60 ml/min) 33 L BUN/Creatinine Ratio (7 - 25 %) 22.0 Magnesium (1.6 - 2.3 mg/dL) 1.8 Creatine Kinase Pending Hematology CBC w Diff MAN DIFF ORDERED WBC (4.8 - 10.8 /CUMM) 1.2 *L RBC (4.70 - 6.10 /CUMM) 2.84 L Hgb (14.0 - 18.0 G/DL) 7.9 L Hct (42 - 52 %) 23.7 L MCV (80.0 - 94.0 FL) 83.7 MCH (27.0 - 31.0 PG) 27.7 MCHC (33.0 - 37.0 G/DL) 33.1 RDW (11.5 - 14.5 %) 14.4 Plt Count (130 - 400 /CUMM) 279 MPV (7.4 - 10.4 FL) 8.1 Gran % (42.2 - 75.2 %) 32.4 L Lymphocytes % (20.5 - 51.1 %) 26.4 Monocytes % (1.7 - 9.3 %) 31.9 H Eosinophils % (0 - 5 %) 7.6 H Basophils % (0.0 - 2.0 %) 1.7 Absolute Granulocytes (1.4 - 6.5 /CUMM) 0.4 L Absolute Lymphocytes (1.2 - 3.4 /CUMM) 0.3 L Absolute Monocytes (0.10 - 0.60 /CUMM) 0.4 Absolute Eosinophils (0.0 - 0.7 /CUMM) 0.1 Absolute Basophils (0.0 - 0.2 /CUMM) 0 Platelet Estimate (ADEQUATE) VERIFIED BY SMEAR Normocytic RBCs VERIFIED Normochromic RBCs VERIFIED Toxicology Random Vancomycin (ug/ml) 14.1 09/27 0645 Chemistry Sodium (137 - 145 mmol/L) 139 Potassium (3.5 - 5.1 mmol/L) 4.3 Chloride (98 - 107 mmol/L) 103 Carbon Dioxide (22 - 30 mmol/L) 20 L Anion Gap (5 - 16) 16 BUN (9 - 20 mg/dL) 39 H Creatinine (0.7 - 1.2 mg/dL) 1.7 H Estimated GFR (>60 ml/min) 40 L BUN/Creatinine Ratio (7 - 25 %) 22.9 Magnesium (1.6 - 2.3 mg/dL) 1.6 Hematology CBC w Diff MAN DIFF ORDERED WBC (4.8 - 10.8 /CUMM) 1.9 L RBC (4.70 - 6.10 /CUMM) 3.07 L Hgb (14.0 - 18.0 G/DL) 8.6 L Hct (42 - 52 %) 25.4 L MCV (80.0 - 94.0 FL) 82.9 MCH (27.0 - 31.0 PG) 28.0 MCHC (33.0 - 37.0 G/DL) 33.8 RDW (11.5 - 14.5 %) 13.9 Plt Count (130 - 400 /CUMM) 256 MPV (7.4 - 10.4 FL) 8.3 Gran % (42.2 - 75.2 %) 42.2 Lymphocytes % (20.5 - 51.1 %) 21.3 Monocytes % (1.7 - 9.3 %) 33.3 H Eosinophils % (0 - 5 %) 2.8 Basophils % (0.0 - 2.0 %) 0.4 Absolute Granulocytes (1.4 - 6.5 /CUMM) 0.8 L Segmented Neutrophils (42.2 - 75.2 %) 36 L Band Neutrophils (0.0 - 5.0 %) 4 Absolute Lymphocytes (1.2 - 3.4 /CUMM) 0.4 L Lymphocytes (20.5 - 51.1 %) 19 L Monocytes (1.7 - 9.3 %) 34 H Absolute Monocytes (0.10 - 0.60 /CUMM) 0.6 Eosinophils (0 - 5.0 %) 5 Absolute Eosinophils (0.0 - 0.7 /CUMM) 0.1 Basophils (0.0 - 2.0 %) 2 Absolute Basophils (0.0 - 0.2 /CUMM) 0 Platelet Estimate (ADEQUATE) VERIFIED BY SMEAR Normocytic RBCs VERIFIED Normochromic RBCs VERIFIED Miscellaneous Flow Cytometry Specimen Toxicology Random Vancomycin (ug/ml) 11.1 09/26 1755 Hematology CBC w Diff MAN DIFF ORDERED WBC (4.8 - 10.8 /CUMM) 1.9 L RBC (4.70 - 6.10 /CUMM) 3.02 L Hgb (14.0 - 18.0 G/DL) 8.4 L Hct (42 - 52 %) 25.2 L MCV (80.0 - 94.0 FL) 83.4 MCH (27.0 - 31.0 PG) 27.7 MCHC (33.0 - 37.0 G/DL) 33.2 RDW (11.5 - 14.5 %) 14.0 Plt Count (130 - 400 /CUMM) 227 MPV (7.4 - 10.4 FL) 8.4 Gran % (42.2 - 75.2 %) 40.9 L Lymphocytes % (20.5 - 51.1 %) 20.6 Monocytes % (1.7 - 9.3 %) 30.8 H Eosinophils % (0 - 5 %) 4.9 Basophils % (0.0 - 2.0 %) 2.8 H Absolute Granulocytes (1.4 - 6.5 /CUMM) 0.8 L Segmented Neutrophils (42.2 - 75.2 %) 34 L Band Neutrophils (0.0 - 5.0 %) 4 Absolute Lymphocytes (1.2 - 3.4 /CUMM) 0.4 L Lymphocytes (20.5 - 51.1 %) 17 L Monocytes (1.7 - 9.3 %) 41 H Absolute Monocytes (0.10 - 0.60 /CUMM) 0.6 Eosinophils (0 - 5.0 %) 4 Absolute Eosinophils (0.0 - 0.7 /CUMM) 0.1 Absolute Basophils (0.0 - 0.2 /CUMM) 0.1 Platelet Estimate (ADEQUATE) VERIFIED BY SMEAR Normochromic RBCs VERIFIED Poikilocytosis FEW Ovalocytes FEW Other Body Source Fld Total RBCs Counted (%) 100 Imaging/Other Studies: CT brain No acute intracranial abnormality identified. There are no secondary findings to suggest intracranial abscess. Note that brain MRI with contrast would provide for more sensitive evaluation. Echo cardiogram CONCLUSIONS 1. Moderate aortic sclerosis is present with no significant valvular stenosis or insufficiency. 2. A mobile echodensity is noted on the left ventricular outflow tract aspect of the aortic valve. This may represent a degenerative valvular lesion, however, the possibility of a vegetation cannot be excluded by this study. 3. Thickening and calcification of the mitral leaflets is present with mild to moderate annular calcification and mild mitral insufficiency with moderate left atrial enlargement. 4. Small pericardial effusion is present which is hemodynamically insignificant. 5. The left ventricular chamber size and systolic function appear normal. There are no resting wall motion abnormalities. 6. Mild tricuspid and pulmonic insufficiency are present. There is no evidence of pulmonary hypertension. 7. A transesophageal echocardiogram is suggested in this patient to better assess the anatomy of the aortic valve and to better exclude a valvular vegetative lesion. Reason MRI scan brain IMPRESSION: 1. No acute infarct, mass lesion, lobar hemorrhage, or evidence of hydrocephalus. 2. More than 10 punctate foci of susceptibility signal are seen throughout the cerebral hemispheres and in the left cerebellum centered at the garcia-white junction. The etiology of these foci is most likely embolic however the imaging features do not allow discrimination between bland and septic embolism. No significant T2 hyperintensity is seen associated with these susceptibility foci suggesting that a bland etiology is more likely. Postcontrast images (including volumetric images) could be performed to evaluate for any associated enhancement as would be seen in the setting of cerebritis although there are no findings to suggest this at the current time. Assessment/Plan Assessment: Acute confusional spell Symptoms improved since yesterday Unclear if medication-induced or per MRI scan possible shower of emboli Recommendations: Suggest to discuss with radiology if can be given enhancer with MRI given his renal status to determine if these findings are acute TESS today to assess for valid valvular vegetations Avoidance of sedatives Possible decision on valvular surgery if convinced that patient has valvular vegetations and cerebral emboli Consult Acknowledgment - Thank you for your consult request.
--- NOTE | 2017-09-28 19:46 | ECHOCARDIOGRAM REPORT ---
BOBBI VELARDE Age: 71 : Gender: M Exam Date: 09/28/2017 10:39 Exam Location: [address] [place] Ht (in): 70 Wt (lb): 196 BSA: 2.11 BP: 114 / 58 Ordering Physician: Eduardo Pierre MD Referring Physician: Eduardo Pierre MD Technologist: Norman Acosta [facility] Room Number: 187-1 Indications: SOURCE OF EMBOLUS Rhythm: Sinus Technical Quality: Good Medications Lidocaine [place]. Propofol administered by Anesthesiology. Ease of Transducer Insertion No Difficulty Complications None. Technical Difficulty FINDINGS Left Ventricle Normal size left ventricle. Normal left ventricular wall motion. Left ventricular wall thickness increased. Normal left ventricular ejection fraction estimated at 55-60%. Right Ventricle Normal right ventricular size and function. Right Atrium Normal right atrial size. Left Atrium Mild left atrial dilatation. LA Appendage Normal left atrial appendage. IA Septum Patent foramen ovale. Mitral Valve Mitral valve thickened. Trace to mild mitral regurgitation. Aortic Valve Trileaflet aortic valve. Diffuse thickening (sclerosis) of the aortic valve cusps without reduced excursion. No aortic stenosis. No aortic regurgitation. Tricuspid Valve Tricuspid valve not well visualized, grossly normal. Trace to mild tricuspid regurgitation. Pulmonic Valve Structurally normal pulmonic valve. Trace pulmonic regurgitation. Pericardium No pericardial effusion. Great Vessels Normal size aortic root and proximal ascending aorta. Grade II plaque seen in the aortic arch. Grade II plaque seen in the descending aorta. CONCLUSIONS 1. There are no vegetative lesions detected on this examination 2. Aortic sclerosis is present with no valvular stenosis or insufficiency. 3. Mitral leaflet thickening is present with minimal to mild mitral insufficiency and mild left atrial enlargement. 4. The left atrial appendage is normal with no evidence of thrombus. The appendage contractility is normal. 5. The pulmonary venous anatomy is normal bilaterally with normal Doppler profiles 6. The left ventricular chamber size and systolic function appear normal. Mild concentric hypertrophy is present 7. The right heart structures are grossly normal. Minimal to mild tricuspid insufficiency is present with minimal pulmonic insufficiency. The right ventricular systolic pressure cannot be assessed. 8. A small patent foramen ovale is noted. There is a minimal right to left shunt noted with manual Valsalva maneuver. A left atrial septal pouch is noted 8. The ascending aorta is normal in size. Grade 2 atheromatous plaque is noted in the distal aortic arch and proximal descending thoracic aorta. There is no mobile debris detected. Darius Lujan M.D. (Electronically Signed) Final Date: 28 September 2017 19:46 MEASUREMENTS (Male / Female) Normal Values
[2017-09-28 22:38] VITALS: BP 140/78
--- NOTE | 2017-09-29 06:49 | PN- Hematology ---
Subjective Subjective: Much more alert, no specific complaints 12 point review of systems unchanged Objective Vital Signs and I&Os Vital Signs Date Time Temp Pulse Resp B/P B/P Pulse O2 O2 Flow FiO2 Mean Ox Delivery Rate 09/28 2238 98.0 72 22 140/78 94 09/28 1448 Nasal 2.0L Cannula 09/28 1440 97.4 66 20 140/70 94 Room Air 09/28 1438 Nasal 2.0L Cannula 09/28 0918 116/60 09/28 0917 116/60 09/28 0752 98.0 68 18 108/62 95 Nasal Cannula Intake & Output 09/29 0800 09/29 0000 09/28 1600 09/28 0800 09/28 0000 09/27 1600 Intake Total 510 800 750 700 Output Total 500 350 Balance 10 800 750 -350 700 Intake, IV 10 600 600 700 Intake, Oral 500 200 150 Number 1 1 Bowel Movements Output, Urine 500 350 Patient 194 lb 204 lb Weight Gen.: in NAD ENT: Sclera anicteric Chest: Normal respiratory effort, clear breath sounds Cor: RRR, no extra sounds Abdomen: Soft, bowel sounds present, no tenderness, no rebound Extremities: Without clubbing, cyanosis, or asymmetric edema Neurology: Alert and oriented 3, no gross deficit Current Medications: Current Medications Sig/Iar Start time Last Medication Dose Route Stop Time Status Admin Acetaminophen 650 MG .STK-MED ONE 09/29 2031 DC PO 09/28 2032 Acetaminophen 650 MG Q6P PRN 09/22 1600 AC 09/28 PO 2034 Amiodarone HCl 100 MG DAILY 09/23 1000 AC 09/28 PO 0918 Apixaban 2.5 MG BID 09/28 1000 AC 09/28 PO 203 Atorvastatin Calcium 10 MG 1700 09/23 1700 DC 09/27 PO 1818 Calcium/Vitamin D 500 MG DAILY 09/22 1929 AC 09/28 PO 0917 Daptomycin 500 MG Q24H 09/28 1830 AC 09/28 Sodium Chloride 50 ML IV 1836 Daptomycin 500 MG Q24H 09/28 1530 DC Sodium Chloride 50 ML IV Escitalopram Oxalate 10 MG DAILY 09/23 1000 AC 09/28 PO 0917 Filgrastim 300 MCG DAILY 09/28 1533 AC 09/28 SC 1738 Insulin Aspart 0 TIDAC/HS 09/28 1700 AC 09/28 SC 1818 Insulin Aspart 0 Q4 09/28 1400 CAN SC Insulin Aspart 0 Q4 09/28 0000 DC 09/28 SC 0916 Insulin Detemir 13 UNITS 8AM 09/27 0800 AC 09/28 SC 0916 Leucovorin Calcium 25 MG DAILY 09/28 1000 AC 09/28 PO 10/03 1001 0928 Lidocaine 0 .STK-MED ONE 09/28 0903 DC TOP Magnesium Oxide 400 MG ONE ONE 09/28 1430 DC 09/28 PO 09/28 1431 1739 Metoprolol Succinate 12.5 MG DAILY 09/23 1000 AC 09/28 PO 0917 Mycophenolate Mofetil 1,000 MG BID 09/22 2200 DC 09/28 PO 0637 Non-Formulary 0 SEE ADMIN CRITERIA 09/28 1430 CAN Medication ANY Sodium Chloride 1,000 ML Q13H 09/26 1800 DC 09/28 IV 1032 Tacrolimus 2 MG 0900 09/29 0900 AC PO Tacrolimus 1.5 MG 0900 09/29 0900 AC PO Tacrolimus 2 MG 0600 09/24 0600 DC 09/28 PO 0638 Tacrolimus 1.5 MG 0600 09/24 0600 DC 09/28 PO 0639 Results Last 24 Hours of Lab Results: Laboratory Tests 09/28 09/28 1620 1455 Chemistry Creatine Kinase (55 - 170 U/L) 81 Serology CMV Specimen Source Pending CMV DNA PCR log IU/mL Pending CMV DNA PCR IU/mL Pending Flow cytometry-on the left shifted white cell series, no blast forms Recent Imaging Studies: TTE-no evidence of valvular vegetations Assessment/Plan Hematology Assessment/Recommendations: 1. Hematologic status-decreased white count. Given essentially normal flow cytometry, Neupogen was added yesterday Recommend- Follow CBC Transfuse as needed red blood cells Consider erythropoietin No immediate plans for bone marrow aspiration and biopsy 2. MRSA sepsis
[2017-09-29 06:55] VITALS: BP 150/60
[2017-09-29 07:05] LABS: WHITE BLOOD CELL COUNT 1.2 /CUMM (4.8-10.8)
[2017-09-29 08:32] LABS: ABSOLUTE BASOPHIL COUNT 0 /CUMM (0.0-0.2); ABSOLUTE EOSINOPHIL COUNT 0.1 /CUMM (0.0-0.7); ABSOLUTE GRANULOCYTE CT 0.7 /CUMM (1.4-6.5); ABSOLUTE LYMPH COUNT 0.4 /CUMM (1.2-3.4); ABSOLUTE MONOCYTE COUNT 0.5 /CUMM (0.10-0.60); BASOPHIL % 2.2 % (0.0-2.0); EOSINOPHIL % 7.9 % (0-5); GRANULOCYTE % 41.7 % (42.2-75.2); HEMATOCRIT 24.5 % (42-52); MEAN CORPUSCULAR HGB 27.6 PG (27.0-31.0); MEAN CORPUSCULAR HGB CONC 32.9 G/DL (33.0-37.0); MEAN CORPUSCULAR VOLUME 83.9 FL (80.0-94.0); MEAN PLATELET VOLUME 8.2 FL (7.4-10.4); PLATELET COUNT 306 /CUMM (130-400); RBC DISTRIBUTION WIDTH 14.1 % (11.5-14.5); RED BLOOD CELL CT 2.92 /CUMM (4.70-6.10); WHITE BLOOD CELL COUNT 1.8 /CUMM (4.8-10.8)
--- NOTE | 2017-09-29 08:56 | PN- Housestaff ---
Subjective Follow-up For: Osteomyelitis Positive blood cultures New left bundle branch block SHIRA in Renal transplant patient Tele-Events Since Last Visit: NSR 67-70 QRS .12 HI .18 Subjective: No acute events overnight. States he feels much better. States he does not remember how he was confused/altered the other day. Review of Systems Constitutional: Reports: see HPI. Objective Last 24 Hrs of Vital Signs/I&O Vital Signs Date Time Temp Pulse Resp B/P B/P Pulse O2 O2 Flow FiO2 Mean Ox Delivery Rate 09/29 1416 98.4 63 20 148/70 98 Room Air 09/29 0736 74 150/60 09/29 0735 74 150/60 09/29 0655 98.8 74 20 150/60 93 Room Air 09/28 2238 98.0 72 22 140/78 94 Intake & Output 09/29 1600 09/29 0800 09/29 0000 Intake Total 700 510 Output Total 100 500 Balance 600 10 Intake, IV 400 10 Intake, Oral 300 500 Number 1 Bowel Movements Output, Urine 100 500 Patient 194 lb Weight Physical Exam General Appearance: Alert, Oriented X3, Cooperative, No Acute Distress Cardiovascular: Regular Rate, Normal S1, Normal S2 Lungs: Clear to Auscultation, Normal Air Movement Abdomen: Normal Bowel Sounds, Soft, No Tenderness Extremities: no LE edema, RLE covered with wound vac Current Medications: Current Medications Sig/Ira Start time Last Medication Dose Route Stop Time Status Admin Acetaminophen 650 MG .STK-MED ONE 09/29 2031 DC PO 09/28 2032 Acetaminophen 650 MG Q6P PRN 09/22 1600 AC 09/29 PO 0734 Amiodarone HCl 100 MG DAILY 09/23 1000 AC 09/29 PO 0735 Apixaban 2.5 MG BID 09/28 1000 AC 09/29 PO 0735 Atorvastatin Calcium 10 MG 1700 09/23 1700 DC 09/27 PO 1818 Calcium/Vitamin D 500 MG DAILY 09/22 1929 AC 09/29 PO 0735 Daptomycin 500 MG Q24H 09/28 1830 AC 09/28 Sodium Chloride 50 ML IV 1836 Daptomycin 500 MG Q24H 09/28 1530 DC Sodium Chloride 50 ML IV Epoetin Onofre 20,000 U ONCE A WEEK 09/29 1030 AC 09/29 SC 1139 Escitalopram Oxalate 10 MG DAILY 09/23 1000 AC 09/29 PO 0735 Filgrastim 300 MCG DAILY 09/28 1533 09/29 UT 1058 Insulin Aspart 0 TIDAC/HS 09/28 1700 AC 09/29 SC 1138 Insulin Detemir 20 UNITS 8AM 09/30 0800 AC SC Insulin Detemir 7 UNITS ONCE ONE 09/29 0815 AR 09/29 SC 09/29 0816 0824 Insulin Detemir 13 UNITS 8AM 09/27 0800 DC 09/29 SC 0734 Leucovorin Calcium 25 MG DAILY 09/28 1000 AC 09/29 PO 10/03 1001 0735 Magnesium Oxide 400 MG ONE ONE 09/29 1330 DC 09/29 PO 09/29 1331 1349 Metoprolol Succinate 12.5 MG DAILY 09/23 1000 AC 09/29 PO 0736 Mycophenolate Mofetil 1,000 MG BID 09/22 2200 DC 09/28 PO 0637 Non-Formulary 0 SEE ADMIN CRITERIA 09/28 1430 CAN Medication ANY Sodium Chloride 1,000 ML Q10H 09/29 1030 AC 09/29 IV 1035 Sodium Chloride 1,000 ML Q13H 09/26 1800 DC 09/28 IV 1032 Tacrolimus 2 MG 0800 09/30 0800 AC PO Tacrolimus 1.5 MG 0800 09/30 0800 AC PO Tacrolimus 2 MG 0900 09/29 0900 DC 09/29 PO 0735 Tacrolimus 1.5 MG 0909/29 0900 DC 09/29 PO 0736 Tacrolimus 2 MG 0600 09/24 0600 DC 09/28 PO 0638 Tacrolimus 1.5 MG 0600 09/24 0600 DC 09/28 PO 0639 Last 24 Hrs of Lab/Joel Results Last 24 Hrs of Labs/Mics: Laboratory Tests 09/29/17 0642: Anion Gap 12, Estimated GFR 33 L, BUN/Creatinine Ratio 22.0, Magnesium 1.9, CBC w Diff MAN DIFF ORDERED, RBC 2.92 L, MCV 83.9, MCH 27.6, MCHC 32.9 L, RDW 14.1 , MPV 8.2, Gran % 41.7 L, Lymphocytes % 21.0, Monocytes % 27.2 H, Eosinophils % 7.9 H, Basophils % 2.2 H, Absolute Granulocytes 0.7 L, Segmented Neutrophils 24 L, Band Neutrophils 6 H, Absolute Lymphocytes 0.4 L, Lymphocytes 29, Monocytes 29 H, Absolute Monocytes 0.5, Eosinophils 9 H, Absolute Eosinophils 0.1, Basophils 3 H, Absolute Basophils 0, Nucleated RBCs 1 H, Platelet Estimate ADEQUATE, Hypochromic-Microcytic 1+, Poikilocytosis 1+, Anisocytosis 1+ 09/29/17 0600: Magnesium Cancelled, Tacrolimus Pending 09/28/17 1620: CMV Specimen Source Pending, CMV DNA PCR log IU/mL Pending, CMV DNA PCR IU/mL Pending Assessment/Plan Assessment: Patient is a 71-year-old male with a PMH significant for ESRD status post renal transplant on tacrolimus and CellCept, paroxysmal atrial fibrillation on Eliquis , HTN, HLD, CVA, DM, with recent admission to [facility] for osteomyelitis , status post amputation of the right and left third toes and left great toe who presented to the [facility] ED complaining of a several day history of malaise, nausea, vomiting, diarrhea, poor appetite found to have 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 Problem list #Sepsis 2/2 to R foot osteomyelitils MAXIMUM TEMPERATURE 98 in 24 hours WBC 1.2, 0 bands CRP >9 Blood cultures + for MRSA Surgical cultures + for MRSA Arterial Doppler: Decreased flow is noted within the right anterior tibial artery, lower part of the left popliteal, and posterior tibial, anterior tibial and dorsalis pedis arteries. TESS negative for vegetation but small PFO and atherosclerotic disease MRI + for foci most liekly embolic in origin and favoring bland > septic origin Baseline CPK 81 -plan for proline for IV abx outpatiient -f/u tacrolimus level -keep mg >2 - switch to daptomycin from vanco. il'ed statin due to risk of rhabdo. -cont dapto #Altered mental status/hallucinations Suddent onset of hallucinatinations and AMS starting last night Head CT negative -much improved after stopping dicyclomine, morphine , burproprion #neurtopenia + anemia WBC 1.8 Perpherial flow cytometry suggesting BM biopsy for MDS -contonie neuoprogen adn start epo -Continue neutropenic diet and precautions -Follow-up hematology oncology recs #SHIRA on CKD History of renal transplant Creatinine 1.8 (baseline 1.2) Tacrolimus level 16.5 -trial of 1/2 NS @ 100/hr -f/u cmv viral load -dc mycophenolate'ed -daily tacrolimus levels -Continue tacrolimus 3.5 mg daily -Follow nephrology recommendations -Continue calcium/vitamin D #H/H drop / anemia CBC 05/02 (september 22) now 8.1/24.5 Folate 12.2, B12 >1000, ferritin >1760, iron 28 -Continue folinic acid 25 mg X7 days -f/u peripheral blood flow cytometry as stated above -Npehro okay with EPO. will touch base with heme-onc regarding start date -Continue to monitor #diabtes Maintain blood sugars less than 150 -cont endo recs #New onset left bundle branch block/mild elevated troponins Troponins 0.04, 0.18, 0.13 -Mild elevated troponins likely secondary to infection -Continue to follow cardiology recommendations #Chronic medical problems including PVD, paroxysmal A. fib, HTN, HLD, -Continue metoprolol, amiodarone, escitalopram, bupropion, apixaban, dicyclomine , Maalox, DVT prophylaxis: Eliquis after surgery. Currently held for surgery CODE STATUS: Full code Problem List: 1. Renal transplant recipient 2. Left bundle branch block 3. Renal transplant rejection 4. SHIRA (acute kidney injury) 5. Osteomyelitis Pain Ratin Pain Location: R foot, achy Pain Goal: Pain 4 or less Pain Plan: pain pathway Tomorrow's Labs & Rationales: cbc bep mg tacrolimus
--- NOTE | 2017-09-29 09:19 | PN- Pulmonary ---
Subjective HPI/Critical Care Issues: Events and data reviewed Pt much less confused and back to baseline No sig complaints Wound vac in place On room air comfortable Discussed with his transplant team yesterday and updated them about the current issues Creat at 2.0 stable since yesterday Flow nil acute Objective Current Medications: Current Medications Sig/Ira Start time Last Medication Dose Route Stop Time Status Admin Acetaminophen 650 MG .STK-MED ONE 09/29 2031 DC PO 09/28 2032 Acetaminophen 650 MG Q6P PRN 09/22 1600 AC 09/29 PO 0734 Amiodarone HCl 100 MG DAILY 09/23 1000 AC 09/29 PO 0735 Apixaban 2.5 MG BID 09/28 1000 AC 09/29 PO 0735 Atorvastatin Calcium 10 MG 1700 09/23 1700 DC 09/27 PO 1818 Calcium/Vitamin D 500 MG DAILY 09/22 1929 AC 09/29 PO 0735 Daptomycin 500 MG Q24H 09/28 1830 AC 09/28 Sodium Chloride 50 ML IV 1836 Daptomycin 500 MG Q24H 09/28 1530 DC Sodium Chloride 50 ML IV Escitalopram Oxalate 10 MG DAILY 09/23 1000 AC 09/29 PO 0735 Filgrastim 300 MCG DAILY 09/28 1533 AC 09/28 SC 1738 Insulin Aspart 0 TIDAC/HS 09/28 1700 AC 09/29 SC 0734 Insulin Aspart 0 Q4 09/28 1400 CAN SC Insulin Aspart 0 Q4 09/28 0000 DC 09/28 SC 0916 Insulin Detemir 20 UNITS 8AM 09/30 0800 AC SC Insulin Detemir 7 UNITS ONCE ONE 09/29 0815 DC 09/29 SC 09/29 0816 0824 Insulin Detemir 13 UNITS 8AM 09/27 0800 DC 09/29 SC 0734 Leucovorin Calcium 25 MG DAILY 09/28 1000 AC 09/29 PO 10/03 1001 0735 Lidocaine 0 .STK-MED ONE 09/28 0903 DC TOP Magnesium Oxide 400 MG ONE ONE 09/28 1430 DC 09/28 PO 09/28 1431 1739 Metoprolol Succinate 12.5 MG DAILY 09/23 1000 AC 09/29 PO 0736 Mycophenolate Mofetil 1,000 MG BID 09/22 2200 DC 09/28 PO 0637 Non-Formulary 0 SEE ADMIN CRITERIA 09/28 1430 CAN Medication ANY Sodium Chloride 1,000 ML Q13H 09/26 1800 DC 09/28 IV 1032 Tacrolimus 2 MG 09/29 0900 AC 09/29 PO 0735 Tacrolimus 1.5 MG 09/29 0900 AC 09/29 PO 0736 Tacrolimus 2 MG 09/24 0600 DC 09/28 PO 0638 Tacrolimus 1.5 MG 09/24 0600 DC 09/28 PO 0639 Vital Signs & I&O Last 24 Hrs of Vitals and I&O: Vital Signs Date Time Temp Pulse Resp B/P B/P Pulse O2 O2 Flow FiO2 Mean Ox Delivery Rate 09/29 0736 74 150/60 09/29 0735 74 150/60 09/29 0655 98.8 74 20 150/60 93 Room Air 09/28 2238 98.0 72 22 140/78 94 09/28 1448 Nasal 2.0L Cannula 09/28 1440 97.4 66 20 140/70 94 Room Air 09/28 1438 Nasal 2.0L Cannula 09/28 0918 116/60 09/28 0917 116/60 Intake & Output 09/29 1600 09/29 0800 09/29 0000 Intake Total 510 Output Total 500 Balance 10 Intake, IV 10 Intake, Oral 500 Number 1 Bowel Movements Output, Urine 500 Patient 194 lb Weight Impression/Plan Impression/Plan Impression/Plan: JUNIOR CONCLUSIONS 1. There are no vegetative lesions detected on this examination 2. Aortic sclerosis is present with no valvular stenosis or insufficiency. 3. Mitral leaflet thickening is present with minimal to mild mitral insufficiency and mild left atrial enlargement. 4. The left atrial appendage is normal with no evidence of thrombus. The appendage contractility is normal. 5. The pulmonary venous anatomy is normal bilaterally with normal Doppler profiles 6. The left ventricular chamber size and systolic function appear normal. Mild concentric hypertrophy is present 7. The right heart structures are grossly normal. Minimal to mild tricuspid insufficiency is present with minimal pulmonic insufficiency. The right ventricular systolic pressure cannot be assessed. 8. A small patent foramen ovale is noted. There is a minimal right to left shunt noted with manual Valsalva maneuver. A left atrial septal pouch is noted 8. The ascending aorta is normal in size. Grade 2 atheromatous plaque is noted in the distal aortic arch and proximal descending thoracic aorta. There is no mobile debris detected. MRI IMPRESSION: 1. No acute infarct, mass lesion, lobar hemorrhage, or evidence of hydrocephalus. 2. More than 10 punctate foci of susceptibility signal are seen throughout the cerebral hemispheres and in the left cerebellum centered at the garcia-white junction. The etiology of these foci is most likely embolic however the imaging features do not allow discrimination between bland and septic embolism. No significant T2 hyperintensity is seen associated with these susceptibility foci suggesting that a bland etiology is more likely. Postcontrast images (including volumetric images) could be performed to evaluate for any associated enhancement as would be seen in the setting of cerebritis although there are no findings to suggest this at the current time. DICTATED BY: Oneil Molina MD DATE/TIME DICTATED:09/28/174 Head: atraumatic, normal appearance Eyes: Bilateral: normal appearance, PERRL, EOMI. Ears, Nose, Throat: normal pharynx, normal ENT inspection, hearing grossly normal Neck: normal inspection, supple, full range of motion, no midline tenderness Respiratory: normal breath sounds, chest non-tender, no respiratory distress, quiet respiration, lungs clear Cardiovascular: normal peripheral pulses, irregularly irregular, norml femoral pulses equa Peripheral Pulses: 4+ carotid (R), 4+ carotid (L) Gastrointestinal: normal bowel sounds, soft, non-tender, no organomegaly Back: normal inspection, normal range of motion, no vertebral tenderness Extremities: no edema, pelvis stable,s/p debridement and in dressing Neurologic/Psych: no motor/sensory deficits, awake, alert, oriented x 2 Confused at times and easily redirectable , normal mood/affect, hooker operator II-XII 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 Lymphatic: no anterior cervical fortunato avf intact IMPRESSION This is a gentleman with s/p renal transplant with infected toe with osteo s/p surg early september with amputation and sub delayed closure who had ecoli and staph was dcd recently off abx as his stump was clean and all his infected tissue had been excised now with * Infected foot with fever on admission MRSA sepsis- in a pt who is immunosupp (recent toe amputation with osteo, s/p complete debridement of osteo with toe amputation and wound closure on 09/09/17) now - MRSA infection and resolving sepsis, now s/p angioplasty of peroneal artery and wound redebridement of the foot. PT now has a wound vac, and on dapto, and would need cork grinder abx * Ongoing leukopenia and anemia - pt on immunosupp rx, cell cept and Tacrolimus, normal flow. - Cell Cept has been dcd since today, and tacrolimus to contine, with daily tacrolimus levels (d/w Dr. LYNDSAY Gauthier his primary transplant nephro), now started on daily neupogen 300 mcg, and CMV viral load sent yesterday * No sig endocarditis noted in junior * REsolved delirium without Sig neuro deficit * MRI showing very small punctate lesions prob ateromatous small emboli, on anticoag, and statin * PT with Pafib in Sinus and sig atheromatous aorta - on eloquis * Pfo, small, ateromatous aorta * Prolonged qtc, previous low mag need to continue to monitor * SHIRA with CKD s/p renal transplant, creat now 2.0 - shira initially with sepsis and now s/p angio with contrast * On immunosupp rx, with leukopenia( see heme note ) and hence sig immunosupp * DM insulin requiring endo onboard * PVD, previous history of stoke, and previous toe amputation, now angioplasty * Previous secondary hyperparathyroid * Sig autonomic dysfunction was on fludocortisone * Pafib on eliquis (in sinus on amiodarone) (being dosed for renal function) * Depression and anxiety * Peripheral neuropathy * Mild ekg changes with slight elevated troponin stable REC * COnt abx * WOund vac * Daily tacrolimus level just before he takes his tacrolimus pill, please change his pill timing to 8 am. Hold mycophlolate * ID and Podiatry, vascular, Cardio,Endo and renal following * EKG monitoring per cardio * Check mag and keep more than 2 * Cont metoprolol, statin, amio, antidepressant lexapro * Keep sugars less than 150
--- NOTE | 2017-09-29 10:32 | PN- Nephrology ---
Assessment/Plan Nephrology Assessment: 1. CKD stage III status post DDKT 2014 2. SHIRA - potential etiologies include prerenal factors, contrast exposure, CNI toxicity (tac level relatively high), vanco (d/c'd yesterday), sepsis 3. 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 Necrotic wound/osteomyelitis right foot; s/p I&D, revision partial first ray resection 5. Episodic confusion - MRI --> ?possible multiple microemboli 6. Leukopenia/neutropenia - ?drug induced, ?sepsis - MMF d/c'd yesterday 7. Anemia Suggestion: 1. Repeat tacrolimus level 2. Trial of IV hydration - suggest half-normal saline at 100 mL per hour and reassess tomorrow 3. Procrit 20,000 units subcutaneous today and then once weekly Subjective Subjective: Patient seems much less confused today but is not back to his baseline. He remains afebrile and continues to have significant trouble hearing and is trying to get his nephew to bring in his hearing aid from home. Renal function remains poor but stable with a creatinine of 2.0. Electrolytes okay. WBC up today to 1.8. Objective Vital Signs and I&Os Vital Signs Date Time Temp Pulse Resp B/P B/P Pulse O2 O2 Flow FiO2 Mean Ox Delivery Rate 09/29 0736 74 150/60 09/29 0735 74 150/60 09/29 0655 98.8 74 20 150/60 93 Room Air 09/28 2238 98.0 72 22 140/78 94 09/28 1448 Nasal 2.0L Cannula 09/28 1440 97.4 66 20 140/70 94 Room Air 09/28 1438 Nasal 2.0L Cannula Intake & Output 09/29 1600 09/29 0400 09/28 1600 09/28 0400 09/27 1600 09/27 0400 Intake Total 510 1550 700 120 Output Total 500 350 150 Balance 10 1550 -350 700 -30 Intake, IV 10 1200 700 Intake, Oral 500 350 120 Number 1 1 Bowel Movements Output, Urine 500 350 150 Patient 194 lb 204 lb 196 lb Weight Physical Exam: General: Well-developed white male in NAD Skin: No rash or jaundice; multiple senile keratoses; no petechiae or splinter hemorrhages HEENT: Conjunctivae pale, sclerae anicteric, mucous membranes moist Neck: Without masses or thyromegaly, no supraclavicular or cervical adenopathy Chest: Clear to P&A Heart: Regular rate and rhythm without S3 or rub Abdomen: Soft and nontender without palpable masses or organomegaly Extremities: Without cyanosis or edema; right foot dressing intact Neuro: No focal findings, no asterixis or myoclonus Results Pertinent Lab Results: Laboratory Tests 09/29 09/29 09/28 0642 0600 1620 Chemistry Sodium (137 - 145 mmol/L) 141 Potassium (3.5 - 5.1 mmol/L) 4.4 Chloride (98 - 107 mmol/L) 108 H Carbon Dioxide (22 - 30 mmol/L) 21 L Anion Gap (5 - 16) 12 BUN (9 - 20 mg/dL) 44 H Creatinine (0.7 - 1.2 mg/dL) 2.0 H Estimated GFR (>60 ml/min) 33 L BUN/Creatinine Ratio (7 - 25 %) 22.0 Magnesium (1.6 - 2.3 mg/dL) 1.9 Cancelled Hematology CBC w Diff MAN DIFF ORDERED WBC (4.8 - 10.8 /CUMM) 1.8 L RBC (4.70 - 6.10 /CUMM) 2.92 L Hgb (14.0 - 18.0 G/DL) 8.1 L Hct (42 - 52 %) 24.5 L MCV (80.0 - 94.0 FL) 83.9 MCH (27.0 - 31.0 PG) 27.6 MCHC (33.0 - 37.0 G/DL) 32.9 L RDW (11.5 - 14.5 %) 14.1 Plt Count (130 - 400 /CUMM) 306 MPV (7.4 - 10.4 FL) 8.2 Gran % (42.2 - 75.2 %) 41.7 L Lymphocytes % (20.5 - 51.1 %) 21.0 Monocytes % (1.7 - 9.3 %) 27.2 H Eosinophils % (0 - 5 %) 7.9 H Basophils % (0.0 - 2.0 %) 2.2 H Absolute Granulocytes (1.4 - 6.5 /CUMM) 0.7 L Segmented Neutrophils (42.2 - 75.2 %) 24 L Band Neutrophils (0.0 - 5.0 %) 6 H Absolute Lymphocytes (1.2 - 3.4 /CUMM) 0.4 L Lymphocytes (20.5 - 51.1 %) 29 Monocytes (1.7 - 9.3 %) 29 H Absolute Monocytes (0.10 - 0.60 /CUMM) 0.5 Eosinophils (0 - 5.0 %) 9 H Absolute Eosinophils (0.0 - 0.7 /CUMM) 0.1 Basophils (0.0 - 2.0 %) 3 H Absolute Basophils (0.0 - 0.2 /CUMM) 0 Nucleated RBCs (0.0 - 0.0 /100WBC) 1 H Platelet Estimate (ADEQUATE) ADEQUATE Hypochromic-Microcytic 1+ Poikilocytosis 1+ Anisocytosis 1+ Serology CMV Specimen Source Pending CMV DNA PCR log IU/mL Pending CMV DNA PCR IU/mL Pending Toxicology Tacrolimus Pending 09/28 09/28 09/28 1455 0630 0600 Chemistry Sodium (137 - 145 mmol/L) 140 Potassium (3.5 - 5.1 mmol/L) 4.5 Chloride (98 - 107 mmol/L) 105 Carbon Dioxide (22 - 30 mmol/L) 17 L Anion Gap (5 - 16) 18 H BUN (9 - 20 mg/dL) 44 H Creatinine (0.7 - 1.2 mg/dL) 2.0 H Estimated GFR (>60 ml/min) 33 L BUN/Creatinine Ratio (7 - 25 %) 22.0 Magnesium (1.6 - 2.3 mg/dL) 1.8 Creatine Kinase (55 - 170 U/L) 81 Hematology CBC w Diff MAN DIFF ORDERED WBC (4.8 - 10.8 /CUMM) 1.2 *L RBC (4.70 - 6.10 /CUMM) 2.84 L Hgb (14.0 - 18.0 G/DL) 7.9 L Hct (42 - 52 %) 23.7 L MCV (80.0 - 94.0 FL) 83.7 MCH (27.0 - 31.0 PG) 27.7 MCHC (33.0 - 37.0 G/DL) 33.1 RDW (11.5 - 14.5 %) 14.4 Plt Count (130 - 400 /CUMM) 279 MPV (7.4 - 10.4 FL) 8.1 Gran % (42.2 - 75.2 %) 32.4 L Lymphocytes % (20.5 - 51.1 %) 26.4 Monocytes % (1.7 - 9.3 %) 31.9 H Eosinophils % (0 - 5 %) 7.6 H Basophils % (0.0 - 2.0 %) 1.7 Absolute Granulocytes (1.4 - 6.5 /CUMM) 0.4 L Absolute Lymphocytes (1.2 - 3.4 /CUMM) 0.3 L Absolute Monocytes (0.10 - 0.60 /CUMM) 0.4 Absolute Eosinophils (0.0 - 0.7 /CUMM) 0.1 Absolute Basophils (0.0 - 0.2 /CUMM) 0 Platelet Estimate (ADEQUATE) VERIFIED BY SMEAR Normocytic RBCs VERIFIED Normochromic RBCs VERIFIED Toxicology Random Vancomycin (ug/ml) 14.1 Tacrolimus Pending 09/27 0645 Chemistry Sodium (137 - 145 mmol/L) 139 Potassium (3.5 - 5.1 mmol/L) 4.3 Chloride (98 - 107 mmol/L) 103 Carbon Dioxide (22 - 30 mmol/L) 20 L Anion Gap (5 - 16) 16 BUN (9 - 20 mg/dL) 39 H Creatinine (0.7 - 1.2 mg/dL) 1.7 H Estimated GFR (>60 ml/min) 40 L BUN/Creatinine Ratio (7 - 25 %) 22.9 Magnesium (1.6 - 2.3 mg/dL) 1.6 Hematology CBC w Diff MAN DIFF ORDERED WBC (4.8 - 10.8 /CUMM) 1.9 L RBC (4.70 - 6.10 /CUMM) 3.07 L Hgb (14.0 - 18.0 G/DL) 8.6 L Hct (42 - 52 %) 25.4 L MCV (80.0 - 94.0 FL) 82.9 MCH (27.0 - 31.0 PG) 28.0 MCHC (33.0 - 37.0 G/DL) 33.8 RDW (11.5 - 14.5 %) 13.9 Plt Count (130 - 400 /CUMM) 256 MPV (7.4 - 10.4 FL) 8.3 Gran % (42.2 - 75.2 %) 42.2 Lymphocytes % (20.5 - 51.1 %) 21.3 Monocytes % (1.7 - 9.3 %) 33.3 H Eosinophils % (0 - 5 %) 2.8 Basophils % (0.0 - 2.0 %) 0.4 Absolute Granulocytes (1.4 - 6.5 /CUMM) 0.8 L Segmented Neutrophils (42.2 - 75.2 %) 36 L Band Neutrophils (0.0 - 5.0 %) 4 Absolute Lymphocytes (1.2 - 3.4 /CUMM) 0.4 L Lymphocytes (20.5 - 51.1 %) 19 L Monocytes (1.7 - 9.3 %) 34 H Absolute Monocytes (0.10 - 0.60 /CUMM) 0.6 Eosinophils (0 - 5.0 %) 5 Absolute Eosinophils (0.0 - 0.7 /CUMM) 0.1 Basophils (0.0 - 2.0 %) 2 Absolute Basophils (0.0 - 0.2 /CUMM) 0 Platelet Estimate (ADEQUATE) VERIFIED BY SMEAR Normocytic RBCs VERIFIED Normochromic RBCs VERIFIED Miscellaneous Flow Cytometry Specimen Toxicology Random Vancomycin (ug/ml) 11.1 09/26 1755 Hematology CBC w Diff MAN DIFF ORDERED WBC (4.8 - 10.8 /CUMM) 1.9 L RBC (4.70 - 6.10 /CUMM) 3.02 L Hgb (14.0 - 18.0 G/DL) 8.4 L Hct (42 - 52 %) 25.2 L MCV (80.0 - 94.0 FL) 83.4 MCH (27.0 - 31.0 PG) 27.7 MCHC (33.0 - 37.0 G/DL) 33.2 RDW (11.5 - 14.5 %) 14.0 Plt Count (130 - 400 /CUMM) 227 MPV (7.4 - 10.4 FL) 8.4 Gran % (42.2 - 75.2 %) 40.9 L Lymphocytes % (20.5 - 51.1 %) 20.6 Monocytes % (1.7 - 9.3 %) 30.8 H Eosinophils % (0 - 5 %) 4.9 Basophils % (0.0 - 2.0 %) 2.8 H Absolute Granulocytes (1.4 - 6.5 /CUMM) 0.8 L Segmented Neutrophils (42.2 - 75.2 %) 34 L Band Neutrophils (0.0 - 5.0 %) 4 Absolute Lymphocytes (1.2 - 3.4 /CUMM) 0.4 L Lymphocytes (20.5 - 51.1 %) 17 L Monocytes (1.7 - 9.3 %) 41 H Absolute Monocytes (0.10 - 0.60 /CUMM) 0.6 Eosinophils (0 - 5.0 %) 4 Absolute Eosinophils (0.0 - 0.7 /CUMM) 0.1 Absolute Basophils (0.0 - 0.2 /CUMM) 0.1 Platelet Estimate (ADEQUATE) VERIFIED BY SMEAR Normochromic RBCs VERIFIED Poikilocytosis FEW Ovalocytes FEW Other Body Source Fld Total RBCs Counted (%) 100
--- NOTE | 2017-09-29 12:17 | PN- Diabetes ---
Assessment/Plan Diabetes Assessment: Patient is a 71-year-old male with a PMH significant for ESRD status post renal transplant on tacrolimus and CellCept, paroxysmal atrial fibrillation on Eliquis , HTN, HLD, CVA, DM type 2, with recent admission to [facility] for osteomyelitis, status post amputation of the toes, was admitted for chronic right foot infection. He underwent angiogram, angioplasty of right peroneal artery, right foot procedure and wound vac placement on 09/27/2017. He had TESS done on 09/28/2017. Cr 2.0. He was restarted on Levemir 13 units daily, Novolog coverage before meals and Novolog coverage at bedtime. His FSGs were 101, 144, 217 and 207. Plan: 1. increase Levemir to 20 units daily; 2. continue the current Novolog coverage before meals and Novolog coverage at bedtime; 3. monitor FSGs. will follow. Subjective Subjective: He feels okay. Objective Last 24 Hrs of Vital Signs/I&O Vital Signs Date Time Temp Pulse Resp B/P B/P Pulse O2 O2 Flow FiO2 Mean Ox Delivery Rate 09/29 0736 74 150/60 09/29 0735 74 150/60 09/29 0655 98.8 74 20 150/60 93 Room Air 09/28 2238 98.0 72 22 140/78 94 09/28 1448 Nasal 2.0L Cannula 09/28 1440 97.4 66 20 140/70 94 Room Air 09/28 1438 Nasal 2.0L Cannula Intake & Output 09/29 1600 09/29 0800 09/29 0000 Intake Total 510 Output Total 500 Balance 10 Intake, IV 10 Intake, Oral 500 Number 1 Bowel Movements Output, Urine 500 Patient 194 lb Weight Findings Pertinent Lab/Joel Results: Laboratory Tests 09/29 09/29 09/28 0642 0600 1620 Chemistry Sodium (137 - 145 mmol/L) 141 Potassium (3.5 - 5.1 mmol/L) 4.4 Chloride (98 - 107 mmol/L) 108 H Carbon Dioxide (22 - 30 mmol/L) 21 L Anion Gap (5 - 16) 12 BUN (9 - 20 mg/dL) 44 H Creatinine (0.7 - 1.2 mg/dL) 2.0 H Estimated GFR (>60 ml/min) 33 L BUN/Creatinine Ratio (7 - 25 %) 22.0 Magnesium (1.6 - 2.3 mg/dL) 1.9 Cancelled Hematology CBC w Diff MAN DIFF ORDERED WBC (4.8 - 10.8 /CUMM) 1.8 L RBC (4.70 - 6.10 /CUMM) 2.92 L Hgb (14.0 - 18.0 G/DL) 8.1 L Hct (42 - 52 %) 24.5 L MCV (80.0 - 94.0 FL) 83.9 MCH (27.0 - 31.0 PG) 27.6 MCHC (33.0 - 37.0 G/DL) 32.9 L RDW (11.5 - 14.5 %) 14.1 Plt Count (130 - 400 /CUMM) 306 MPV (7.4 - 10.4 FL) 8.2 Gran % (42.2 - 75.2 %) 41.7 L Lymphocytes % (20.5 - 51.1 %) 21.0 Monocytes % (1.7 - 9.3 %) 27.2 H Eosinophils % (0 - 5 %) 7.9 H Basophils % (0.0 - 2.0 %) 2.2 H Absolute Granulocytes (1.4 - 6.5 /CUMM) 0.7 L Segmented Neutrophils (42.2 - 75.2 %) 24 L Band Neutrophils (0.0 - 5.0 %) 6 H Absolute Lymphocytes (1.2 - 3.4 /CUMM) 0.4 L Lymphocytes (20.5 - 51.1 %) 29 Monocytes (1.7 - 9.3 %) 29 H Absolute Monocytes (0.10 - 0.60 /CUMM) 0.5 Eosinophils (0 - 5.0 %) 9 H Absolute Eosinophils (0.0 - 0.7 /CUMM) 0.1 Basophils (0.0 - 2.0 %) 3 H Absolute Basophils (0.0 - 0.2 /CUMM) 0 Nucleated RBCs (0.0 - 0.0 /100WBC) 1 H Platelet Estimate (ADEQUATE) ADEQUATE Hypochromic-Microcytic 1+ Poikilocytosis 1+ Anisocytosis 1+ Serology CMV Specimen Source Pending CMV DNA PCR log IU/mL Pending CMV DNA PCR IU/mL Pending Toxicology Tacrolimus Pending 09/28 3855 Chemistry Creatine Kinase (55 - 170 U/L) 81
--- NOTE | 2017-09-29 12:42 | PN- Infect Dx ---
Subjective Subjective: Afebrile. He feels improved with no complaints. Objective Last 24 Hrs of Vital Signs/I&O Vital Signs Date Time Temp Pulse Resp B/P B/P Pulse O2 O2 Flow FiO2 Mean Ox Delivery Rate 09/29 0736 74 150/60 09/29 0735 74 150/60 09/29 0655 98.8 74 20 150/60 93 Room Air 09/28 2238 98.0 72 22 140/78 94 09/28 1448 Nasal 2.0L Cannula 09/28 1440 97.4 66 20 140/70 94 Room Air 09/28 1438 Nasal 2.0L Cannula Intake & Output 09/29 1600 09/29 0800 09/29 0000 Intake Total 510 Output Total 500 Balance 10 Intake, IV 10 Intake, Oral 500 Number 1 Bowel Movements Output, Urine 500 Patient 194 lb Weight Physical Exam Other Physical Findings: He is awake and alert, overall improved though may still be mildly confused Lungs are clear Heart regular rhythm with a 1/6 systolic ejection murmur Extremities right foot dressing intact Results Last 24 Hours of Lab Results: Laboratory Tests 09/29 09/29 09/28 0642 0600 1620 Chemistry Sodium (137 - 145 mmol/L) 141 Potassium (3.5 - 5.1 mmol/L) 4.4 Chloride (98 - 107 mmol/L) 108 H Carbon Dioxide (22 - 30 mmol/L) 21 L Anion Gap (5 - 16) 12 BUN (9 - 20 mg/dL) 44 H Creatinine (0.7 - 1.2 mg/dL) 2.0 H Estimated GFR (>60 ml/min) 33 L BUN/Creatinine Ratio (7 - 25 %) 22.0 Magnesium (1.6 - 2.3 mg/dL) 1.9 Cancelled Hematology CBC w Diff MAN DIFF ORDERED WBC (4.8 - 10.8 /CUMM) 1.8 L RBC (4.70 - 6.10 /CUMM) 2.92 L Hgb (14.0 - 18.0 G/DL) 8.1 L Hct (42 - 52 %) 24.5 L MCV (80.0 - 94.0 FL) 83.9 MCH (27.0 - 31.0 PG) 27.6 MCHC (33.0 - 37.0 G/DL) 32.9 L RDW (11.5 - 14.5 %) 14.1 Plt Count (130 - 400 /CUMM) 306 MPV (7.4 - 10.4 FL) 8.2 Gran % (42.2 - 75.2 %) 41.7 L Lymphocytes % (20.5 - 51.1 %) 21.0 Monocytes % (1.7 - 9.3 %) 27.2 H Eosinophils % (0 - 5 %) 7.9 H Basophils % (0.0 - 2.0 %) 2.2 H Absolute Granulocytes (1.4 - 6.5 /CUMM) 0.7 L Segmented Neutrophils (42.2 - 75.2 %) 24 L Band Neutrophils (0.0 - 5.0 %) 6 H Absolute Lymphocytes (1.2 - 3.4 /CUMM) 0.4 L Lymphocytes (20.5 - 51.1 %) 29 Monocytes (1.7 - 9.3 %) 29 H Absolute Monocytes (0.10 - 0.60 /CUMM) 0.5 Eosinophils (0 - 5.0 %) 9 H Absolute Eosinophils (0.0 - 0.7 /CUMM) 0.1 Basophils (0.0 - 2.0 %) 3 H Absolute Basophils (0.0 - 0.2 /CUMM) 0 Nucleated RBCs (0.0 - 0.0 /100WBC) 1 H Platelet Estimate (ADEQUATE) ADEQUATE Hypochromic-Microcytic 1+ Poikilocytosis 1+ Anisocytosis 1+ Serology CMV Specimen Source Pending CMV DNA PCR log IU/mL Pending CMV DNA PCR IU/mL Pending Toxicology Tacrolimus Pending 09/28 1455 Chemistry Creatine Kinase (55 - 170 U/L) 81 Last 24 Hours of Joel Results: No new cultures Recent Imaging Studies: MRI of the head September 28 reveals more than 10 punctate foci of susceptibility signal throughout the cerebral hemispheres and in the left cerebellum, felt to be embolic from a bland etiology TESS September 28 negative for any vegetations, but reveals aortic sclerosis and a small patent foramen ovale, with a minimal right to left shunt; left atrial appendage with no evidence of thrombosis Assessment/Plan ID Impression: Overall improved, though his mental status may not be quite back to his baseline. He remains afebrile, now on Daptomycin, Day 7 of treatment for MRSA sepsis, after discontinuation of Vancomycin yesterday because of a decreasing white blood cell count, which is now increased (on Neupogen) and renal insufficiency, which appears to be stable today. He will require a prolonged course of antibiotics for MRSA osteomyelitis of the right foot status post revisional partial first ray resection, placement of a wound VAC and right peroneal artery angioplasty 2 days ago. The head MRI findings are noted and suggest an embolic process, though his TESS was negative. His CellCept was also discontinued yesterday, which was apparently recommended by the Renal transplant team at [place]. Suggestion: 1. Cardiology follow-up regarding the MRI findings 2. Further management with regard to Neupogen per Hematology 3. Continue close monitoring of his renal function 4. Continue Daptomycin Coco Lanza MD will be covering until October 03
[2017-09-29 14:16] VITALS: BP 148/70
[2017-09-29 22:53] VITALS: BP 118/60
[2017-09-30 06:47] VITALS: BP 160/70
--- NOTE | 2017-09-30 07:03 | PN- Hematology ---
Subjective Subjective: Complaining of sore throat, otherwise feeling generally improved 12 point review of systems nonspecific Objective Vital Signs and I&Os Vital Signs Date Time Temp Pulse Resp B/P B/P Pulse O2 O2 Flow FiO2 Mean Ox Delivery Rate 09/30 0647 98.8 69 20 160/70 93 Room Air 09/29 2253 98.6 63 20 118/60 94 Room Air 09/29 1416 98.4 63 20 148/70 98 Room Air 09/29 0736 74 150/60 09/29 0735 74 150/60 Intake & Output 09/30 0800 09/30 0000 09/29 1600 09/29 0800 09/29 0000 09/28 1600 Intake Total 900 1000 700 510 800 Output Total 450 100 500 Balance 450 1000 600 10 800 Intake, IV 800 800 400 10 600 Intake, Oral 100 200 300 500 200 Number 2 1 1 Bowel Movements Output, Urine 450 100 500 Patient 194 lb Weight Gen.: in NAD ENT: Sclera anicteric Chest: Normal respiratory effort, decreased breath sounds Cor: RRR, no extra sounds Abdomen: Soft, bowel sounds present, no tenderness, no rebound Extremities: Without clubbing, cyanosis, or asymmetric edema Neurology: Alert and oriented 3, Mouth-no obvious thrush Current Medications: Current Medications Sig/Ira Start time Last Medication Dose Route Stop Time Status Admin Acetaminophen 650 MG .STK-MED ONE 09/29 2215 DC PO 09/29 221 Acetaminophen 650 MG .STK-MED ONE 09/29 1630 DC PO 09/29 1631 Acetaminophen 650 MG .STK-MED ONE 09/29 0731 DC PO 09/29 0732 Acetaminophen 650 MG Q6P PRN 09/22 1600 AC 09/29 PO 2216 Amiodarone HCl 100 MG DAILY 09/23 1000 AC 09/29 PO 0735 Apixaban 2.5 MG BID 09/28 1000 AC 09/29 PO 2020 Benzocaine/Menthol 1 CELIA Q2P PRN 09/30 0100 AC 09/30 PO 0118 Calcium/Vitamin D 500 MG DAILY 09/22 1929 AC 09/29 PO 0735 Daptomycin 500 MG Q24H 09/28 1830 AC 09/29 Sodium Chloride 50 ML IV 1830 Epoetin Onofre 20,000 U ONCE A WEEK 09/29 1030 AC 09/29 SC 1139 Escitalopram Oxalate 10 MG DAILY 09/23 1000 AC 09/29 PO 0735 Filgrastim 300 MCG DAILY 09/28 1533 AC 09/29 SC 1058 Insulin Aspart 0 TIDAC/HS 09/28 1700 AC 09/29 SC 2200 Insulin Detemir 20 UNITS 8AM 09/30 0800 AC SC Insulin Detemir 7 UNITS ONCE ONE 09/29 0815 DC 09/29 SC 09/29 0816 0824 Insulin Detemir 13 UNITS 8AM 09/27 0800 DC 09/29 SC 0734 Leucovorin Calcium 25 MG DAILY 09/28 1000 AC 09/29 PO 10/03 1001 0735 Magnesium Oxide 400 MG ONE ONE 09/29 1330 DC 09/29 PO 09/29 1331 1349 Metoprolol Succinate 12.5 MG DAILY 09/23 1000 AC 09/29 PO 0736 Nystatin 5 ML 4 TIMES/DAY 09/30 0629 AC 09/30 PO 0650 Sodium Chloride 1,000 ML Q10H 09/29 1030 AC 09/29 IV 2217 Tacrolimus 2 MG 0800 09/30 0800 AC PO Tacrolimus 1.5 MG 0800 09/30 0800 AC PO Tacrolimus 2 MG 0900 09/29 0900 DC 09/29 PO 0735 Tacrolimus 1.5 MG 0900 09/29 0900 DC 09/29 PO 0736 Results Last 24 Hours of Lab Results: Laboratory Tests 09/30 0647 Chemistry Sodium Pending Potassium Pending Chloride Pending Carbon Dioxide Pending Anion Gap Pending BUN Pending Creatinine Pending BUN/Creatinine Ratio Pending Magnesium Pending Hematology CBC w Diff Pending WBC Pending RBC Pending Hgb Pending Hct Pending MCV Pending MCH Pending MCHC Pending RDW Pending Plt Count Pending MPV Pending Toxicology Tacrolimus Pending Assessment/Plan Hematology Assessment/Recommendations: Hematologic status-increased white blood count, CellCept has been discontinued Recommend- Continue Neupogen Follow CBC Consider erythropoietin replacement therapy
[2017-09-30 07:58] LABS: ABSOLUTE BASOPHIL COUNT 0 /CUMM (0.0-0.2); ABSOLUTE EOSINOPHIL COUNT 0.2 /CUMM (0.0-0.7); ABSOLUTE GRANULOCYTE CT 0.4 /CUMM (1.4-6.5); ABSOLUTE LYMPH COUNT 0.4 /CUMM (1.2-3.4); ABSOLUTE MONOCYTE COUNT 0.6 /CUMM (0.10-0.60); BASOPHIL % 1.7 % (0.0-2.0); EOSINOPHIL % 10.1 % (0-5); GRANULOCYTE % 26.8 % (42.2-75.2); HEMATOCRIT 24.7 % (42-52); MEAN CORPUSCULAR HGB 27.3 PG (27.0-31.0); MEAN CORPUSCULAR HGB CONC 32.7 G/DL (33.0-37.0); MEAN CORPUSCULAR VOLUME 83.7 FL (80.0-94.0); MEAN PLATELET VOLUME 7.9 FL (7.4-10.4); PLATELET COUNT 325 /CUMM (130-400); RED BLOOD CELL CT 2.95 /CUMM (4.70-6.10); WHITE BLOOD CELL COUNT 1.7 /CUMM (4.8-10.8)
--- NOTE | 2017-09-30 08:09 | PN- Housestaff ---
Subjective Follow-up For: Osteomyelitis Positive blood cultures New left bundle branch block SHIRA in Renal transplant patient Neuropenia AMS Tele-Events Since Last Visit: NSR 65-77 QRS .1 [place] .18 Subjective: No acute events overnight. Complains of throat pain. Started 5 days ago and getting worsse. Some R ear pressure. Some congestion. Feels a slight cold but no fever. Review of Systems Constitutional: Reports: see HPI. Objective Last 24 Hrs of Vital Signs/I&O Vital Signs Date Time Temp Pulse Resp B/P B/P Pulse O2 O2 Flow FiO2 Mean Ox Delivery Rate 09/30 1411 99.4 70 18 120/54 96 Room Air 09/30 0917 72 160/74 09/30 0800 Room Air 09/30 0647 98.8 69 20 160/70 93 Room Air 09/29 2253 98.6 63 20 118/60 94 Room Air Intake & Output 09/30 1600 09/30 0800 09/30 0000 Intake Total 5188 920 6180 Output Total 450 Balance 7334 635 8892 Intake, IV 800 800 800 Intake, Oral 480 100 200 Number 2 Bowel Movements Output, Urine 450 Physical Exam General Appearance: Alert, Oriented X3, Cooperative HEENT: L throat tenderness, dry oral mucosa Cardiovascular: Regular Rate, Normal S1, Normal S2 Lungs: Clear to Auscultation, Normal Air Movement Abdomen: Normal Bowel Sounds, Soft, No Tenderness Extremities: 2+ radial pulses Vascular: RLE covered with wound vac Current Medications: Current Medications Sig/Ira Start time Last Medication Dose Route Stop Time Status Admin Acetaminophen 650 MG .STK-MED ONE 09/29 2215 DC PO 09/29 221 Acetaminophen 650 MG Q6P PRN 09/22 1600 AC 09/30 PO 1159 Amiodarone HCl 100 MG DAILY 09/23 1000 AC 09/30 PO 0916 Apixaban 2.5 MG BID 09/28 1000 AC 09/30 PO 0916 Benzocaine/Menthol 1 CELIA Q2P PRN 09/30 0100 AC 09/30 PO 0118 Calcium/Vitamin D 500 MG DAILY 09/22 1929 AC 09/30 PO 0916 Daptomycin 500 MG Q24H 09/28 1830 AC 09/29 Sodium Chloride 50 ML IV 1830 Epoetin Onofre 20,000 U ONCE A WEEK 09/29 1030 AC 09/29 SC 1139 Escitalopram Oxalate 10 MG DAILY 09/23 1000 AC 09/30 PO 0916 Filgrastim 300 MCG DAILY 09/28 1533 AC 09/30 SC 1157 Insulin Aspart 0 TIDAC/HS 09/28 1700 AC 09/30 SC 1306 Insulin Detemir 20 UNITS 8AM 09/30 0800 AC 09/30 SC 0915 Leucovorin Calcium 25 MG DAILY 09/28 1000 AC 09/30 PO 10/03 1001 0914 Lidocaine/Diphenhydr/ 5 ML Q4-6 PRN PRN 09/30 1530 AC Alum/Mg/Simeth PO Magnesium Oxide 400 MG ONE ONE 09/30 0915 DC PO 09/30 0916 Magnesium Oxide 400 MG ONE ONE 09/30 0845 DC 09/30 PO 09/30 0846 1157 Metoprolol Succinate 12.5 MG DAILY 09/23 1000 AC 09/30 PO 0917 Nystatin 5 ML 4 TIMES/DAY 09/30 0629 DC 09/30 PO 1156 Sodium Chloride 1,000 ML Q10H 09/29 1030 DC 09/30 IV 0848 Tacrolimus 0.75 MG 10/01 0800 AC PO Tacrolimus 2 MG 09/30 0800 AC 09/30 PO 0915 Tacrolimus 1.5 MG 00 09/30 0800 DC 09/30 PO 0915 Last 24 Hrs of Lab/Joel Results Last 24 Hrs of Labs/Mics: Laboratory Tests 09/30/17 0647: Anion Gap 12, Estimated GFR 43 L, BUN/Creatinine Ratio 23.1, Calcium 7.3 L, Phosphorus 3.9, Magnesium 1.8, CBC w Diff MAN DIFF ORDERED, RBC 2.95 L, MCV 83.7, MCH 27.3, MCHC 32.7 L, RDW 14.0, MPV 7.9, Gran % 26.8 L, Lymphocytes % 26.1, Monocytes % 35.3 H, Eosinophils % 10.1 H, Basophils % 1.7, Absolute Granulocytes 0.4 L, Segmented Neutrophils 26 L, Band Neutrophils 6 H, Absolute Lymphocytes 0.4 L, Lymphocytes 26, Monocytes 30 H, Absolute Monocytes 0.6, Eosinophils 9 H, Absolute Eosinophils 0.2, Basophils 2, Absolute Basophils 0, Myelocytes 1 H, Nucleated RBCs 2 H, Platelet Estimate ADEQUATE, Hypochromic -Microcytic 2+, Poikilocytosis 2+, Anisocytosis 1+, Ovalocytes 1+, Tacrolimus Pending Microbiology 09/30 1200 NASOPHARYN: Influenza Virus A & B Rapid Smear - COMP 09/30 0840 BLOOD: Blood Culture - RECD 09/30 929 BLOOD: Blood Culture - RECD Assessment/Plan Assessment: Patient is a 71-year-old male with a PMH significant for ESRD status post renal transplant on tacrolimus and CellCept, paroxysmal atrial fibrillation on Eliquis , HTN, HLD, CVA, DM, with recent admission to [facility] for osteomyelitis , status post amputation of the right and left third toes and left great toe who presented to the [facility] ED complaining of a several day history of malaise, nausea, vomiting, diarrhea, poor appetite found to have 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 Problem list #Sepsis 2/ to R foot osteomyelitils MAXIMUM TEMPERATURE 98 in 24 hours WBC 1.7 CRP >9 Blood cultures + for MRSA Surgical cultures + for MRSA Arterial Doppler: Decreased flow is noted within the right anterior tibial artery, lower part of the left popliteal, and posterior tibial, anterior tibial and dorsalis pedis arteries. TESS negative for vegetation but small PFO and atherosclerotic disease MRI + for foci most liekly embolic in origin and favoring bland > septic origin Baseline CPK 81 -plan for proline for IV abx outpatiient -f/u tacrolimus level daily -keep mg >2 - switch to daptomycin from vanco. ar'ed statin due to risk of rhabdo. -cont dapto #neurtopenia + anemia in the setting of ckd s/p renal transplant WBC 1.7 Perpherial flow cytometry suggesting BM biopsy for MDS -contonie neuoprogen adn epo -Continue neutropenic diet and precautions -Follow-up hematology oncology recs #SHIRA on CKD History of renal transplant Creatinine 1.6 (baseline 1.2) Tacrolimus level 13.8 -stop fluids -f/u cmv viral load, call ID if positive -dc mycophenolate'ed -daily tacrolimus levels -Reduce tacrolimus 2.75 mg daily -Follow nephrology recommendations -Continue calcium/vitamin D #sore throat Rapid flu negative -f/u repeat bcx from 09/30 -cont magic mouth wash -monitor vitals -contact ID for fevers or positive throat cx #Altered mental status/hallucinations Suddent onset of hallucinatinations and AMS starting last night Head CT negative -much improved after stopping dicyclomine, morphine , burproprion #H/H drop / anemia CBC 05/02 (september 22) now 8.1/24.5 Folate 12.2, B12 >1000, ferritin >1760, iron 28 -Continue folinic acid 25 mg X7 days -cont neupogen and epo -Continue to monitor #diabtes Maintain blood sugars less than 150 -cont endo recs #New onset left bundle branch block/mild elevated troponins Troponins 0.04, 0.18, 0.13 -Mild elevated troponins likely secondary to infection -Continue to follow cardiology recommendations #Chronic medical problems including PVD, paroxysmal A. fib, HTN, HLD, -Continue metoprolol, amiodarone, escitalopram, bupropion, apixaban, dicyclomine , Maalox, DVT prophylaxis: Eliquis after surgery. Currently held for surgery CODE STATUS: Full code Problem List: 1. Renal transplant recipient 2. SHIRA (acute kidney injury) 3. Osteomyelitis 4. Neutropenia Pain Ratin Pain Location: none Pain Goal: Pain 4 or less Pain Plan: pain pathway Tomorrow's Labs & Rationales: cbc bep mg tacrolimus level
--- NOTE | 2017-09-30 09:14 | PN- Pulmonary ---
Subjective HPI/Critical Care Issues: Doing ok Now complains of sig throat pain with pharyngitis symptoms Afebrile No nausea and no sig dysphagia Objective Current Medications: Current Medications Sig/Ira Start time Last Medication Dose Route Stop Time Status Admin Acetaminophen 650 MG .STK-MED ONE 09/29 2215 DC PO 09/29 221 Acetaminophen 650 MG .STK-MED ONE 09/29 1630 DC PO 09/29 1631 Acetaminophen 650 MG Q6P PRN 09/22 1600 AC 09/29 PO 2216 Amiodarone HCl 100 MG DAILY 09/23 1000 AC 09/29 PO 0735 Apixaban 2.5 MG BID 09/28 1000 AC 09/29 PO 2020 Benzocaine/Menthol 1 ECLIA Q2P PRN 09/30 0100 AC 09/30 PO 0118 Calcium/Vitamin D 500 MG DAILY 09/22 1929 AC 09/29 PO 0735 Daptomycin 500 MG Q24H 09/28 1830 AC 09/29 Sodium Chloride 50 ML IV 1830 Epoetin Onofre 20,000 U ONCE A WEEK 09/29 1030 09/29 SC 1139 Escitalopram Oxalate 10 MG DAILY 09/23 1000 AC 09/29 PO 0735 Filgrastim 300 MCG DAILY 09/28 1533 AC 09/29 SC 1058 Insulin Aspart 0 TIDAC/HS 09/28 1700 AC 09/29 SC 2200 Insulin Detemir 20 UNITS 8AM 09/30 0800 AC SC Leucovorin Calcium 25 MG DAILY 09/28 1000 AC 09/29 PO 10/03 1001 0735 Magnesium Oxide 400 MG ONE 09/30 0915 UNVr PO 09/30 0916 Magnesium Oxide 400 MG ONE 09/30 0845 DC PO 09/30 0846 Magnesium Oxide 400 MG ONE 09/29 1330 DC 09/29 PO 09/29 1331 1349 Metoprolol Succinate 12.5 MG DAILY 09/23 1000 AC 09/29 PO 0736 Nystatin 5 ML 4 TIMES/DAY 09/30 0629 AC 09/30 PO 0650 Sodium Chloride 1,000 ML Q10H 09/29 1030 AC 09/30 IV 0848 Tacrolimus 2 MG 0800 09/30 0800 AC PO Tacrolimus 1.5 MG 0809/30 0800 AC PO Tacrolimus 2 MG 0909/29 0900 DC 09/29 PO 0735 Tacrolimus 1.5 MG 0909/29 0900 DC 09/29 PO 0736 Vital Signs & I&O Last 24 Hrs of Vitals and I&O: Vital Signs Date Time Temp Pulse Resp B/P B/P Pulse O2 O2 Flow FiO2 Mean Ox Delivery Rate 09/30 0647 98.8 69 20 160/70 93 Room Air 09/29 2253 98.6 63 20 118/60 94 Room Air 09/29 1416 98.4 63 20 148/70 98 Room Air Intake & Output 09/30 1600 09/30 0800 09/30 0000 Intake Total 900 1000 Output Total 450 Balance 450 1000 Intake, IV 800 800 Intake, Oral 100 200 Number 2 Bowel Movements Output, Urine 450 Impression/Plan Impression/Plan Impression/Plan: Creat has improved with creat down to 1.6 Wbc pending Head: atraumatic, normal appearance Eyes: Bilateral: normal appearance, PERRL, EOMI. Ears, Nose, Throat: normal pharynx, normal ENT inspection, hearing grossly normal Neck: normal inspection, supple, full range of motion, no midline tenderness Respiratory: normal breath sounds, chest non-tender, no respiratory distress, quiet respiration, lungs clear Cardiovascular: normal peripheral pulses, irregularly irregular, norml femoral pulses equa Peripheral Pulses: 4+ carotid (R), 4+ carotid (L) Gastrointestinal: normal bowel sounds, soft, non-tender, no organomegaly Back: normal inspection, normal range of motion, no vertebral tenderness Extremities: no edema, pelvis stable,s/p debridement and in dressing Neurologic/Psych: no motor/sensory deficits, awake, alert, oriented x 2 Confused at times and easily redirectable , normal mood/affect, sheet tester II-XII 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 Lymphatic: no anterior cervical fortunato avf intact IMPRESSION This is a gentleman with s/p renal transplant with infected toe with osteo s/p surg early september with amputation and sub delayed closure who had ecoli and staph was dcd recently off abx as his stump was clean and all his infected tissue had been excised now with * Infected foot with fever on admission MRSA sepsis- in a pt who is immunosupp (recent toe amputation with osteo, s/p complete debridement of osteo with toe amputation and wound closure on 09/09/17) now - MRSA infection and resolving sepsis, now s/p angioplasty of peroneal artery and wound redebridement of the foot. PT now has a wound vac, and on dapto, and would need retoucher abx. No sig endocarditis noted in junior * Ongoing leukopenia and anemia - pt on immunosupp rx, cell cept and Tacrolimus, normal flow. - Cell Cept has been dcd, and tacrolimus to contine, with daily tacrolimus levels (d/w Dr. LYNDSAY Gauthier his primary transplant nephro), now started on daily neupogen 300 mcg, and CMV viral load sent * Sore throat now with some evidence of pharyngitis and post pharynx difficult to assess with his large tongue * REsolved delirium without Sig neuro deficit * MRI showing very small punctate lesions prob ateromatous small emboli, on anticoag, and statin * PT with Pafib in Sinus and sig atheromatous aorta, small pfo, - on eloquis * Prolonged qtc, previous low mag need to continue to monitor * SHIRA with CKD s/p renal transplant, creat now 2.0 - shira initially with sepsis and now s/p angio with contrast- on ivf since yesterday and has improved to 1.6 * On immunosupp rx, with leukopenia( see heme note ) and hence sig immunosupp ( pt on tacrolimus, and mycophenolate has been held for now). CMV viral load sent and pending * DM insulin requiring endo onboard * PVD, previous history of stoke, and previous toe amputation, now angioplasty * Previous secondary hyperparathyroid. Sig autonomic dysfunction was on fludocortisone * Pafib on eliquis (in sinus on amiodarone) (being dosed for renal function) * Depression and anxiety * Peripheral neuropathy * Mild ekg changes with slight elevated troponin stable REC * COnt abx,thoroat culture, ID to see, And use magic mouth wash if needed * Check wbc today * COnt current dose of tacrolimus * IVF till later today and dc if taking po * WOund vac * Daily tacrolimus level just before he takes his tacrolimus pill, Hold mycophlolate * ID and Podiatry, vascular, Cardio,Endo and renal following * EKG monitoring per cardio * Check mag and keep more than 2 * Cont metoprolol, statin, amio, antidepressant lexapro * Keep sugars less than 150
--- NOTE | 2017-09-30 10:39 | PN- Nephrology ---
Assessment/Plan Nephrology Assessment: SHIRA: Suspect prerenal from volume depletion & nephrotoxicity from supratherapeutic tacrolimus levels. Would continue IV hydration x1 more liter thens top. Would decrease tac level as above CKD stage 3 (baseline creat 1.1-1.2) involving renal transplant Leukopenia, anemia: Continue neupagen and epogen per heme. MRSA bacteremia: this has cleared. TESS neg for veg despite suggestion on 2D echo. currently on IV dapto Suggestion: continue IVFs x1 more liter (another bag of IVFs was just started); after this next liter would stop Lower tacrolimus XR from 3.5 mg/day to 2.75 mg/day add on calcium and phosphorus level; last checked 09/22 Subjective Subjective: Confusion has resolved Mental status currently at baseline Creatinine level improving with IV fluids Patient reports that he did feel dry and dehydrated yesterday and that this seems to be improving with increasing urine output Tac level remains high at 13.8 but improving Review of Systems: Complains of sore throat. By mouth intake not great because of sore throat. No vomiting or diarrhea Denies shortness of breath or chest pain Objective Vital Signs and I&Os Vital Signs Date Time Temp Pulse Resp B/P B/P Pulse O2 O2 Flow FiO2 Mean Ox Delivery Rate 09/30 0917 72 160/74 09/30 0647 98.8 69 20 160/70 93 Room Air 09/29 2253 98.6 63 20 118/60 94 Room Air 09/29 1416 98.4 63 20 148/70 98 Room Air Intake & Output 09/30 1600 09/30 0400 09/29 1600 09/29 0400 09/28 1600 09/28 0400 Intake Total 900 1000 426 088 4140 Output Total 450 100 500 350 Balance 450 1000 252 89 5266 -350 Intake, IV 800 800 552 10 1429 Intake, Oral 100 200 300 500 350 Number 2 1 1 Bowel Movements Output, Urine 450 100 500 350 Patient 194 lb 204 lb Weight Physical Exam: General: NAD, A+O x3. Pale HEENT: NC/AT. No icterus. Moist mucosa dry CV: RRR, no m/r/g Pulm: CTAB, no rales Abd: soft, NT Lower Ext: neg edema +rt foot dressing Upper Ext: LUE AVF+thrill/bruit Neuro: neg tremor, asterixis Skin: no rash, jaundice : no baptiste catheter Current Medications: Current Medications Sig/Ira Start time Last Medication Dose Route Stop Time Status Admin Acetaminophen 650 MG .STK-MED ONE 09/29 2215 DC PO 09/29 2216 Acetaminophen 650 MG .STK-MED ONE 09/29 1630 DC PO 09/29 1631 Acetaminophen 650 MG Q6P PRN 09/22 1600 AC 09/29 PO 2216 Amiodarone HCl 100 MG DAILY 09/23 1000 AC 09/30 PO 0916 Apixaban 2.5 MG BID 09/28 1000 AC 09/30 PO 0916 Benzocaine/Menthol 1 CELIA Q2P PRN 09/30 0100 AC 09/30 PO 0118 Calcium/Vitamin D 500 MG DAILY 09/22 1929 AC 09/30 PO 0916 Daptomycin 500 MG Q24H 09/28 1830 AC 09/29 Sodium Chloride 50 ML IV 1830 Epoetin Onofre 20,000 U ONCE A WEEK 09/29 1030 AC 09/29 SC 1139 Escitalopram Oxalate 10 MG DAILY 09/23 1000 AC 09/30 PO 0916 Filgrastim 300 MCG DAILY 09/28 1533 AC 09/29 SC 1058 Insulin Aspart 0 TIDAC/HS 09/28 1700 AC 09/30 SC 0915 Insulin Detemir 20 UNITS 8AM 09/30 0800 AC 09/30 SC 0915 Leucovorin Calcium 25 MG DAILY 09/28 1000 AC 09/30 PO 10/03 1001 0914 Magnesium Oxide 400 MG ONE ONE 09/30 0915 DC PO 09/30 0916 Magnesium Oxide 400 MG ONE 09/30 0845 DC PO 09/30 0846 Magnesium Oxide 400 MG ONE 09/29 1330 DC 09/29 PO 09/29 1331 1349 Metoprolol Succinate 12.5 MG DAILY 09/23 1000 AC 09/30 PO 0917 Nystatin 5 ML 4 TIMES/DAY 09/30 0629 AC 09/30 PO 0650 Sodium Chloride 1,000 ML Q10H 09/29 1030 AC 09/30 IV 0848 Tacrolimus 2 MG 0809/30 0800 AC 09/30 PO 0915 Tacrolimus 1.5 MG 0809/30 0800 AC 09/30 PO 0915 Tacrolimus 2 MG 09/29 0900 DC 09/29 PO 0735 Tacrolimus 1.5 MG 09/29 0900 DC 09/29 PO 0736 Results Pertinent Lab Results: Laboratory Tests 09/30 09/29 0647 0642 Chemistry Sodium (137 - 145 mmol/L) 142 141 Potassium (3.5 - 5.1 mmol/L) 4.4 4.4 Chloride (98 - 107 mmol/L) 109 H 108 H Carbon Dioxide (22 - 30 mmol/L) 21 L 21 L Anion Gap (5 - 16) 12 12 BUN (9 - 20 mg/dL) 37 H 44 H Creatinine (0.7 - 1.2 mg/dL) 1.6 H 2.0 H Estimated GFR (>60 ml/min) 43 L 33 L BUN/Creatinine Ratio (7 - 25 %) 23.1 22.0 Magnesium (1.6 - 2.3 mg/dL) 1.8 1.9 Hematology CBC w Diff MAN DIFF ORDERED MAN DIFF ORDERED WBC (4.8 - 10.8 /CUMM) 1.7 L 1.8 L RBC (4.70 - 6.10 /CUMM) 2.95 L 2.92 L Hgb (14.0 - 18.0 G/DL) 8.1 L 8.1 L Hct (42 - 52 %) 24.7 L 24.5 L MCV (80.0 - 94.0 FL) 83.7 83.9 MCH (27.0 - 31.0 PG) 27.3 27.6 MCHC (33.0 - 37.0 G/DL) 32.7 L 32.9 L RDW (11.5 - 14.5 %) 14.0 14.1 Plt Count (130 - 400 /CUMM) 325 306 MPV (7.4 - 10.4 FL) 7.9 8.2 Gran % (42.2 - 75.2 %) 26.8 L 41.7 L Lymphocytes % (20.5 - 51.1 %) 26.1 21.0 Monocytes % (1.7 - 9.3 %) 35.3 H 27.2 H Eosinophils % (0 - 5 %) 10.1 H 7.9 H Basophils % (0.0 - 2.0 %) 1.7 2.2 H Absolute Granulocytes (1.4 - 6.5 /CUMM) 0.4 L 0.7 L Segmented Neutrophils (42.2 - 75.2 %) 26 L 24 L Band Neutrophils (0.0 - 5.0 %) 6 H 6 H Absolute Lymphocytes (1.2 - 3.4 /CUMM) 0.4 L 0.4 L Lymphocytes (20.5 - 51.1 %) 26 29 Monocytes (1.7 - 9.3 %) 30 H 29 H Absolute Monocytes (0.10 - 0.60 /CUMM) 0.6 0.5 Eosinophils (0 - 5.0 %) 9 H 9 H Absolute Eosinophils (0.0 - 0.7 /CUMM) 0.2 0.1 Basophils (0.0 - 2.0 %) 2 3 H Absolute Basophils (0.0 - 0.2 /CUMM) 0 0 Myelocytes (0 - 0 %) 1 H Nucleated RBCs (0.0 - 0.0 /100WBC) 2 H 1 H Platelet Estimate (ADEQUATE) ADEQUATE ADEQUATE Hypochromic-Microcytic 2+ 1+ Poikilocytosis 2+ 1+ Anisocytosis 1+ 1+ Ovalocytes 1+ Toxicology Tacrolimus Pending 09/29 09/28 09/28 0600 1620 1455 Chemistry Magnesium Cancelled Creatine Kinase (55 - 170 U/L) 81 Serology CMV Specimen Source Pending CMV DNA PCR log IU/mL Pending CMV DNA PCR IU/mL Pending Toxicology Tacrolimus (() mcg/L) 13.8 09/28 09/28 0630 0600 Chemistry Sodium (137 - 145 mmol/L) 140 Potassium (3.5 - 5.1 mmol/L) 4.5 Chloride (98 - 107 mmol/L) 105 Carbon Dioxide (22 - 30 mmol/L) 17 L Anion Gap (5 - 16) 18 H BUN (9 - 20 mg/dL) 44 H Creatinine (0.7 - 1.2 mg/dL) 2.0 H Estimated GFR (>60 ml/min) 33 L BUN/Creatinine Ratio (7 - 25 %) 22.0 Magnesium (1.6 - 2.3 mg/dL) 1.8 Hematology CBC w Diff MAN DIFF ORDERED WBC (4.8 - 10.8 /CUMM) 1.2 *L RBC (4.70 - 6.10 /CUMM) 2.84 L Hgb (14.0 - 18.0 G/DL) 7.9 L Hct (42 - 52 %) 23.7 L MCV (80.0 - 94.0 FL) 83.7 MCH (27.0 - 31.0 PG) 27.7 MCHC (33.0 - 37.0 G/DL) 33.1 RDW (11.5 - 14.5 %) 14.4 Plt Count (130 - 400 /CUMM) 279 MPV (7.4 - 10.4 FL) 8.1 Gran % (42.2 - 75.2 %) 32.4 L Lymphocytes % (20.5 - 51.1 %) 26.4 Monocytes % (1.7 - 9.3 %) 31.9 H Eosinophils % (0 - 5 %) 7.6 H Basophils % (0.0 - 2.0 %) 1.7 Absolute Granulocytes (1.4 - 6.5 /CUMM) 0.4 L Absolute Lymphocytes (1.2 - 3.4 /CUMM) 0.3 L Absolute Monocytes (0.10 - 0.60 /CUMM) 0.4 Absolute Eosinophils (0.0 - 0.7 /CUMM) 0.1 Absolute Basophils (0.0 - 0.2 /CUMM) 0 Platelet Estimate (ADEQUATE) VERIFIED BY SMEAR Normocytic RBCs VERIFIED Normochromic RBCs VERIFIED Toxicology Random Vancomycin (ug/ml) 14.1 Tacrolimus (() mcg/L) 21.2 H
--- NOTE | 2017-09-30 11:14 | PN- Infect Dx ---
Subjective Subjective: No fever. C/o ST. No dysphagia. Review of Systems Comments: 12 points reviewed as noted, otherwise negative. Objective Last 24 Hrs of Vital Signs/I&O Vital Signs Date Time Temp Pulse Resp B/P B/P Pulse O2 O2 Flow FiO2 Mean Ox Delivery Rate 09/30 0917 72 160/74 09/30 0647 98.8 69 20 160/70 93 Room Air 09/29 2253 98.6 63 20 118/60 94 Room Air 09/29 1416 98.4 63 20 148/70 98 Room Air Intake & Output 09/30 1600 09/30 0800 09/30 0000 Intake Total 900 1000 Output Total 450 Balance 450 1000 Intake, IV 800 800 Intake, Oral 100 200 Number 2 Bowel Movements Output, Urine 450 Physical Exam Other Physical Findings: He is awake and alert, overall improved though may still be mildly confused HEENT AT/NC, no thrush Neck No JVD Lungs are clear Heart regular rhythm with a 1/6 systolic ejection murmur Abd soft, NT Extremities right foot dressing intact Results Last 24 Hours of Lab Results: Laboratory Tests 09/30 646 Chemistry Sodium (137 - 145 mmol/L) 142 Potassium (3.5 - 5.1 mmol/L) 4.4 Chloride (98 - 107 mmol/L) 109 H Carbon Dioxide (22 - 30 mmol/L) 21 L Anion Gap (5 - 16) 12 BUN (9 - 20 mg/dL) 37 H Creatinine (0.7 - 1.2 mg/dL) 1.6 H Estimated GFR (>60 ml/min) 43 L BUN/Creatinine Ratio (7 - 25 %) 23.1 Magnesium (1.6 - 2.3 mg/dL) 1.8 Hematology CBC w Diff MAN DIFF ORDERED WBC (4.8 - 10.8 /CUMM) 1.7 L RBC (4.70 - 6.10 /CUMM) 2.95 L Hgb (14.0 - 18.0 G/DL) 8.1 L Hct (42 - 52 %) 24.7 L MCV (80.0 - 94.0 FL) 83.7 MCH (27.0 - 31.0 PG) 27.3 MCHC (33.0 - 37.0 G/DL) 32.7 L RDW (11.5 - 14.5 %) 14.0 Plt Count (130 - 400 /CUMM) 325 MPV (7.4 - 10.4 FL) 7.9 Gran % (42.2 - 75.2 %) 26.8 L Lymphocytes % (20.5 - 51.1 %) 26.1 Monocytes % (1.7 - 9.3 %) 35.3 H Eosinophils % (0 - 5 %) 10.1 H Basophils % (0.0 - 2.0 %) 1.7 Absolute Granulocytes (1.4 - 6.5 /CUMM) 0.4 L Segmented Neutrophils (42.2 - 75.2 %) 26 L Band Neutrophils (0.0 - 5.0 %) 6 H Absolute Lymphocytes (1.2 - 3.4 /CUMM) 0.4 L Lymphocytes (20.5 - 51.1 %) 26 Monocytes (1.7 - 9.3 %) 30 H Absolute Monocytes (0.10 - 0.60 /CUMM) 0.6 Eosinophils (0 - 5.0 %) 9 H Absolute Eosinophils (0.0 - 0.7 /CUMM) 0.2 Basophils (0.0 - 2.0 %) 2 Absolute Basophils (0.0 - 0.2 /CUMM) 0 Myelocytes (0 - 0 %) 1 H Nucleated RBCs (0.0 - 0.0 /100WBC) 2 H Platelet Estimate (ADEQUATE) ADEQUATE Hypochromic-Microcytic 2+ Poikilocytosis 2+ Anisocytosis 1+ Ovalocytes 1+ Toxicology Tacrolimus Pending Last 24 Hours of Joel Results: METH RESIST STAPH AUREUS ISOLATED Called to/Readback by MARYAN by [email or web address] 09/24/17 0933 1. METH RESIST STAPH AUREUS RX ABN ------ --- 1. METH RESIST STAPH AUREUS RX AB ------ -- CEFAZOLIN R AMOXICILLIN/CLAVULINIC ACID R AMPICILLIN/SULBACTAM R TETRACYCLINE S TRIMETHOPRIM/SULFAMETHOXAZOLE S AZITHROMYCIN R CLINDAMYCIN R ERYTHROMYCIN R OXACILLIN R VANCOMYCIN S VA=1.5 Vancomycin JOEL of > 1 ug/ml has been associated with treatment failures. Alternative therapy should be considered. Consult with Infectious Disease physician recommended. ATTENTIONATTENTIONPLACE PATIENT ON CONTACT PRECAUTIONS Recent Imaging Studies: TESS CONCLUSIONS 1. There are no vegetative lesions detected on this examination 2. Aortic sclerosis is present with no valvular stenosis or insufficiency. 3. Mitral leaflet thickening is present with minimal to mild mitral insufficiency and mild left atrial enlargement. 4. The left atrial appendage is normal with no evidence of thrombus. The appendage contractility is normal. 5. The pulmonary venous anatomy is normal bilaterally with normal Doppler profiles 6. The left ventricular chamber size and systolic function appear normal. Mild concentric hypertrophy is present 7. The right heart structures are grossly normal. Minimal to mild tricuspid insufficiency is present with minimal pulmonic insufficiency. The right ventricular systolic pressure cannot be assessed. 8. A small patent foramen ovale is noted. There is a minimal right to left shunt noted with manual Valsalva maneuver. A left atrial septal pouch is noted 8. The ascending aorta is normal in size. Grade 2 atheromatous plaque is noted in the distal aortic arch and proximal descending thoracic aorta. There is no mobile debris detected. Darius Lujan M.D. 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 Mental status may not be quite back to his baseline. He remains afebrile, now on Daptomycin, Day 8 of treatment for MRSA sepsis (JOEL Vanco 1.5; predictive of failure to iv vancomycin), after discontinuation of Vancomycin on 09/28 because of a decreasing white blood cell count, which is now increased (on Neupogen) and renal insufficiency, which appears to be improving. He will require a prolonged course of antibiotics for MRSA osteomyelitis of the right foot status post revisional partial first ray resection, placement of a wound VAC and right peroneal artery angioplasty 3 days ago. The head MRI findings are noted and suggest an embolic process, though his TESS was negative. CellCept was discontinued 09/28. Tacrolimus level pnd. Suggestion: 1. F/U BC, throat cx results; if febrile panculture and add empirically iv Ceftazidime 1 gm q 8 h, as ANC is below 500 (455). 2. Continue close monitoring of his renal function and CBC w/ diff. 3. Continue Daptomycin D #3; weekly LFT's and CPK while treated with iv Daptomycin (dose adjusted per kidney function per pharmacy) .
--- NOTE | 2017-09-30 13:25 | PN- Cardiology ---
Subjective Subjective: Cardiac status stable and unchanged. Objective Vital Signs and I&Os Vital Signs Date Time Temp Pulse Resp B/P B/P Pulse O2 O2 Flow FiO2 Mean Ox Delivery Rate 09/30 0917 72 160/74 09/30 0800 Room Air 09/30 0647 98.8 69 20 160/70 93 Room Air 09/29 2253 98.6 63 20 118/60 94 Room Air 09/29 1416 98.4 63 20 148/70 98 Room Air Intake & Output 09/30 1600 09/30 0800 09/30 0000 09/29 1600 09/29 0800 09/29 0000 Intake Total 900 1000 700 510 Output Total 450 100 500 Balance 450 1000 600 10 Intake, IV 800 800 400 10 Intake, Oral 100 200 300 500 Number 2 1 Bowel Movements Output, Urine 450 100 500 Patient 194 lb Weight Physical Exam: General Appearance: Alert, Oriented X3, Cooperative, No Acute Distress Cardiovascular: Regular Rate, Normal S1, Normal S2, 1/6 systolic murmur Lungs: Clear to Auscultation, and percussion bilaterally Abdomen: Normal Bowel Sounds, Soft, No Tenderness Extremities: no LE edema, RLE covered with wound vac Current Medications: Current Medications Sig/Ira Start time Last Medication Dose Route Stop Time Status Admin Acetaminophen 650 MG .STK-MED ONE 09/29 2215 DC PO 09/29 2216 Acetaminophen 650 MG .STK-MED ONE 09/29 1630 DC PO 09/29 1631 Acetaminophen 650 MG Q6P PRN 09/22 1600 AC 09/30 PO 1159 Amiodarone HCl 100 MG DAILY 09/23 1000 AC 09/30 PO 0916 Apixaban 2.5 MG BID 09/28 1000 AC 09/30 PO 0916 Benzocaine/Menthol 1 CELIA Q2P PRN 09/30 0100 AC 09/30 PO 0118 Calcium/Vitamin D 500 MG DAILY 09/22 1929 AC 09/30 PO 0916 Daptomycin 500 MG Q24H 09/28 1830 AC 09/29 Sodium Chloride 50 ML IV 1830 Epoetin Onofre 20,000 U ONCE A WEEK 09/29 1030 AC 09/29 SC 1139 Escitalopram Oxalate 10 MG DAILY 09/23 1000 AC 09/30 PO 0916 Filgrastim 300 MCG DAILY 09/28 1533 AC 09/30 SC 1157 Insulin Aspart 0 TIDAC/HS 09/28 1700 AC 09/30 SC 1306 Insulin Detemir 20 UNITS 8AM 09/30 0800 AC 09/30 SC 0915 Leucovorin Calcium 25 MG DAILY 09/28 1000 AC 09/30 PO 10/03 1001 0914 Magnesium Oxide 400 MG ONE ONE 09/30 0915 DC PO 09/30 0916 Magnesium Oxide 400 MG ONE ONE 09/30 0845 DC 09/30 PO 09/30 0846 1157 Magnesium Oxide 400 MG ONE ONE 09/29 1330 DC 09/29 PO 09/29 1331 1349 Metoprolol Succinate 12.5 MG DAILY 09/23 1000 AC 09/30 PO 0917 Nystatin 5 ML 4 TIMES/DAY 09/30 0629 AC 09/30 PO 1156 Sodium Chloride 1,000 ML Q10H 09/29 1030 AC 09/30 IV 0848 Tacrolimus 2 MG 0800 09/30 0800 AC 09/30 PO 0915 Tacrolimus 1.5 MG 0800 09/30 0800 AC 09/30 PO 0915 Results Last 48 Hrs of Labs/Mics: Laboratory Tests 09/30/17 0647: Anion Gap 12, Estimated GFR 43 L, BUN/Creatinine Ratio 23.1, Magnesium 1.8, CBC w Diff MAN DIFF ORDERED, RBC 2.95 L, MCV 83.7, MCH 27.3, MCHC 32.7 L, RDW 14.0 , MPV 7.9, Gran % 26.8 L, Lymphocytes % 26.1, Monocytes % 35.3 H, Eosinophils % 10.1 H, Basophils % 1.7, Absolute Granulocytes 0.4 L, Segmented Neutrophils 26 L, Band Neutrophils 6 H, Absolute Lymphocytes 0.4 L, Lymphocytes 26, Monocytes 30 H, Absolute Monocytes 0.6, Eosinophils 9 H, Absolute Eosinophils 0.2, Basophils 2, Absolute Basophils 0, Myelocytes 1 H, Nucleated RBCs 2 H, Platelet Estimate ADEQUATE, Hypochromic-Microcytic 2+, Poikilocytosis 2+, Anisocytosis 1+, Ovalocytes 1+, Tacrolimus Pending 09/29/17 0642: Anion Gap 12, Estimated GFR 33 L, BUN/Creatinine Ratio 22.0, Magnesium 1.9, CBC w Diff MAN DIFF ORDERED, RBC 2.92 L, MCV 83.9, MCH 27.6, MCHC 32.9 L, RDW 14.1 , MPV 8.2, Gran % 41.7 L, Lymphocytes % 21.0, Monocytes % 27.2 H, Eosinophils % 7.9 H, Basophils % 2.2 H, Absolute Granulocytes 0.7 L, Segmented Neutrophils 24 L, Band Neutrophils 6 H, Absolute Lymphocytes 0.4 L, Lymphocytes 29, Monocytes 29 H, Absolute Monocytes 0.5, Eosinophils 9 H, Absolute Eosinophils 0.1, Basophils 3 H, Absolute Basophils 0, Nucleated RBCs 1 H, Platelet Estimate ADEQUATE, Hypochromic-Microcytic 1+, Poikilocytosis 1+, Anisocytosis 1+ 09/29/17 0600: Magnesium Cancelled, Tacrolimus 13.8 09/28/17 1620: CMV Specimen Source Pending, CMV DNA PCR log IU/mL Pending, CMV DNA PCR IU/mL Pending 09/28/17 1455: Creatine Kinase 81 Assessment/Plan Assessment/Plan Assessment: 1. Minimally elevated troponin suggestive of type II NM 2. MRSA bacteremia with evidence of possible aortic valve vegetation on transthoracic echocardiogram; TESS negative 3. Osteomyelitis 4. Abnormal ECG 5. Status post renal transplant 6. Anemia 7. Mild hyponatremia Recommendations: -The patient remains stable from a cardiac standpoint. -Continue current management as per the medical and infectious disease team -Please call us if any further cardiac input is necessary. Continue telemetry? Yes
--- NOTE | 2017-09-30 13:31 | PN- Diabetes ---
Assessment/Plan Diabetes Assessment: Patient is a 71-year-old male with a PMH significant for ESRD status post renal transplant on tacrolimus and CellCept, paroxysmal atrial fibrillation on Eliquis , HTN, HLD, CVA, DM type 2, with recent admission to [facility] for osteomyelitis, status post amputation of the toes, was admitted for chronic right foot infection. He underwent angiogram, angioplasty of right peroneal artery, right foot procedure and wound vac placement on 09/27/2017. He had TESS done on 09/28/2017. Cr level was down to 1.6 on 09/30/2017. Levemir was increased to 20 units daily. He was put on Novolog coverage before meals and Novolog coverage at bedtime. His FSGs were 105, 143 and 155. Plan: continue the current insulin regimen for now; monitor FSGs; will follow. Subjective Subjective: He feels better this morning. Objective Last 24 Hrs of Vital Signs/I&O Vital Signs Date Time Temp Pulse Resp B/P B/P Pulse O2 O2 Flow FiO2 Mean Ox Delivery Rate 09/30 0917 72 160/74 09/30 0800 Room Air 09/30 0647 98.8 69 20 160/70 93 Room Air 09/29 2253 98.6 63 20 118/60 94 Room Air 09/29 1416 98.4 63 20 148/70 98 Room Air Intake & Output 09/30 1600 09/30 0800 09/30 0000 Intake Total 900 1000 Output Total 450 Balance 450 1000 Intake, IV 800 800 Intake, Oral 100 200 Number 2 Bowel Movements Output, Urine 450 Findings Pertinent Lab/Joel Results: Laboratory Tests 09/30 0647 Chemistry Sodium (137 - 145 mmol/L) 142 Potassium (3.5 - 5.1 mmol/L) 4.4 Chloride (98 - 107 mmol/L) 109 H Carbon Dioxide (22 - 30 mmol/L) 21 L Anion Gap (5 - 16) 12 BUN (9 - 20 mg/dL) 37 H Creatinine (0.7 - 1.2 mg/dL) 1.6 H Estimated GFR (>60 ml/min) 43 L BUN/Creatinine Ratio (7 - 25 %) 23.1 Magnesium (1.6 - 2.3 mg/dL) 1.8 Hematology CBC w Diff MAN DIFF ORDERED WBC (4.8 - 10.8 /CUMM) 1.7 L RBC (4.70 - 6.10 /CUMM) 2.95 L Hgb (14.0 - 18.0 G/DL) 8.1 L Hct (42 - 52 %) 24.7 L MCV (80.0 - 94.0 FL) 83.7 MCH (27.0 - 31.0 PG) 27.3 MCHC (33.0 - 37.0 G/DL) 32.7 L RDW (11.5 - 14.5 %) 14.0 Plt Count (130 - 400 /CUMM) 325 MPV (7.4 - 10.4 FL) 7.9 Gran % (42.2 - 75.2 %) 26.8 L Lymphocytes % (20.5 - 51.1 %) 26.1 Monocytes % (1.7 - 9.3 %) 35.3 H Eosinophils % (0 - 5 %) 10.1 H Basophils % (0.0 - 2.0 %) 1.7 Absolute Granulocytes (1.4 - 6.5 /CUMM) 0.4 L Segmented Neutrophils (42.2 - 75.2 %) 26 L Band Neutrophils (0.0 - 5.0 %) 6 H Absolute Lymphocytes (1.2 - 3.4 /CUMM) 0.4 L Lymphocytes (20.5 - 51.1 %) 26 Monocytes (1.7 - 9.3 %) 30 H Absolute Monocytes (0.10 - 0.60 /CUMM) 0.6 Eosinophils (0 - 5.0 %) 9 H Absolute Eosinophils (0.0 - 0.7 /CUMM) 0.2 Basophils (0.0 - 2.0 %) 2 Absolute Basophils (0.0 - 0.2 /CUMM) 0 Myelocytes (0 - 0 %) 1 H Nucleated RBCs (0.0 - 0.0 /100WBC) 2 H Platelet Estimate (ADEQUATE) ADEQUATE Hypochromic-Microcytic 2+ Poikilocytosis 2+ Anisocytosis 1+ Ovalocytes 1+ Toxicology Tacrolimus Pending
[2017-09-30 14:11] VITALS: BP 120/54
[2017-09-30 23:38] VITALS: BP 146/64
[2017-10-01 06:48] VITALS: BP 138/78
[2017-10-01 08:12] LABS: ABSOLUTE BASOPHIL COUNT 0 /CUMM (0.0-0.2); ABSOLUTE EOSINOPHIL COUNT 0.1 /CUMM (0.0-0.7); ABSOLUTE GRANULOCYTE CT 0.5 /CUMM (1.4-6.5); ABSOLUTE LYMPH COUNT 0.6 /CUMM (1.2-3.4); ABSOLUTE MONOCYTE COUNT 0.8 /CUMM (0.10-0.60); BASOPHIL % 1.5 % (0.0-2.0); EOSINOPHIL % 7.1 % (0-5); GRANULOCYTE % 21.7 % (42.2-75.2); HEMATOCRIT 22.7 % (42-52); MEAN CORPUSCULAR HGB 27.1 PG (27.0-31.0); MEAN CORPUSCULAR HGB CONC 32.6 G/DL (33.0-37.0); MEAN CORPUSCULAR VOLUME 82.9 FL (80.0-94.0); MEAN PLATELET VOLUME 8.3 FL (7.4-10.4); PLATELET COUNT 318 /CUMM (130-400); RED BLOOD CELL CT 2.74 /CUMM (4.70-6.10)
--- NOTE | 2017-10-01 12:08 | PN- Diabetes ---
Assessment/Plan Diabetes Assessment: Patient is a 71-year-old male with a PMH significant for ESRD status post renal transplant on tacrolimus and CellCept, paroxysmal atrial fibrillation on Eliquis , HTN, HLD, CVA, DM type 2, with recent admission to [facility] for osteomyelitis, status post amputation of the toes, was admitted for chronic right foot infection. He underwent angiogram, angioplasty of right peroneal artery, right foot procedure and wound vac placement on 09/27/2017. He had TESS done on 09/28/2017. Cr level was down to 1.6 on 09/30/2017. Currently he is on Levemir 20 units daily, Novolog coverage before meals and Novolog coverage at bedtime. His FSGs wubp097, 200, 13, 119 and 205. Plan: continue the current insulin regimen for now. monitor FSGs. will follow. Subjective Subjective: He feels okay. Objective Last 24 Hrs of Vital Signs/I&O Vital Signs Date Time Temp Pulse Resp B/P B/P Pulse O2 O2 Flow FiO2 Mean Ox Delivery Rate 10/01 0732 70 138/78 10/01 0732 70 138/78 10/01 0648 99.0 70 20 138/78 94 09/30 2338 99.2 74 18 146/64 94 Room Air 09/30 1411 99.4 70 18 120/54 96 Room Air Intake & Output 10/01 1600 10/01 0800 10/01 0000 Intake Total 240 360 Output Total 425 350 Balance -185 10 Intake, Oral 240 360 Number 1 Bowel Movements Output, Urine 425 350 Patient 210 lb Weight Weight Bed scale Measurement Method Findings Pertinent Lab/Joel Results: Laboratory Tests 10/01 0600 Chemistry Sodium (137 - 145 mmol/L) 141 Potassium (3.5 - 5.1 mmol/L) 4.8 Chloride (98 - 107 mmol/L) 108 H Carbon Dioxide (22 - 30 mmol/L) 22 Anion Gap (5 - 16) 11 BUN (9 - 20 mg/dL) 33 H Creatinine (0.7 - 1.2 mg/dL) 1.6 H Estimated GFR (>60 ml/min) 43 L BUN/Creatinine Ratio (7 - 25 %) 20.6 Magnesium (1.6 - 2.3 mg/dL) 1.7 Hematology CBC w Diff MAN DIFF ORDERED WBC (4.8 - 10.8 /CUMM) 2.0 L RBC (4.70 - 6.10 /CUMM) 2.74 L Hgb (14.0 - 18.0 G/DL) 7.4 *L Hct (42 - 52 %) 22.7 L MCV (80.0 - 94.0 FL) 82.9 MCH (27.0 - 31.0 PG) 27.1 MCHC (33.0 - 37.0 G/DL) 32.6 L RDW (11.5 - 14.5 %) 14.0 Plt Count (130 - 400 /CUMM) 318 MPV (7.4 - 10.4 FL) 8.3 Gran % (42.2 - 75.2 %) 21.7 L Lymphocytes % (20.5 - 51.1 %) 29.8 Monocytes % (1.7 - 9.3 %) 39.9 H Eosinophils % (0 - 5 %) 7.1 H Basophils % (0.0 - 2.0 %) 1.5 Absolute Granulocytes (1.4 - 6.5 /CUMM) 0.5 L Segmented Neutrophils (42.2 - 75.2 %) 8 L Band Neutrophils (0.0 - 5.0 %) 6 H Absolute Lymphocytes (1.2 - 3.4 /CUMM) 0.6 L Lymphocytes (20.5 - 51.1 %) 32 Monocytes (1.7 - 9.3 %) 39 H Absolute Monocytes (0.10 - 0.60 /CUMM) 0.8 H Eosinophils (0 - 5.0 %) 9 H Absolute Eosinophils (0.0 - 0.7 /CUMM) 0.1 Basophils (0.0 - 2.0 %) 5 H Absolute Basophils (0.0 - 0.2 /CUMM) 0 Myelocytes (0 - 0 %) 1 H Nucleated RBCs (0.0 - 0.0 /100WBC) 7 H Platelet Estimate (ADEQUATE) VERIFIED BY SMEAR Polychromasia 1+ Toxicology Tacrolimus Pending
--- NOTE | 2017-10-01 12:17 | PN- Housestaff ---
Subjective Follow-up For: Osteomyelitis Positive blood cultures New left bundle branch block SHIRA in Renal transplant patient Neuropenia AMS Tele-Events Since Last Visit: NSR/first-degree heart block HR 7384 BBB [place] 0.22 Subjective: No acute events overnight. Patient states he feels somewhat better. States that his throat pain feels improved. Review of Systems Constitutional: Reports: see HPI. Objective Last 24 Hrs of Vital Signs/I&O Vital Signs Date Time Temp Pulse Resp B/P B/P Pulse O2 O2 Flow FiO2 Mean Ox Delivery Rate 10/01 2028 98.8 69 16 138/64 93 10/01 1458 98.7 64 20 148/68 92 Room Air 10/01 0732 70 138/78 10/01 0732 70 138/78 10/01 0648 99.0 70 20 138/78 94 09/30 2338 99.2 74 18 146/64 94 Room Air Intake & Output 10/01 1600 10/01 0800 10/01 0000 Intake Total 480 240 360 Output Total 1500 425 350 Balance -1020 -185 10 Intake, Oral 480 240 360 Number 1 1 Bowel Movements Output, Urine 1500 425 350 Patient 210 lb Weight Weight Bed scale Measurement Method Physical Exam General Appearance: Alert, Oriented X3, Cooperative, No Acute Distress Cardiovascular: Regular Rate, Normal S1, Normal S2 Lungs: Clear to Auscultation, Normal Air Movement Abdomen: Normal Bowel Sounds, Soft, No Tenderness Extremities: dark red drainage of the right foot with wound VAC Vascular: right 2+ radial, left AV fistula pulse Current Medications: Current Medications Sig/Ira Start time Last Medication Dose Route Stop Time Status Admin Acetaminophen 650 MG .STK-MED ONE 10/01 1322 DC PO 10/01 1323 Acetaminophen 650 MG Q6P PRN 09/22 1600 AC 10/01 PO 1336 Amiodarone HCl 100 MG DAILY 09/23 1000 AC 10/01 PO 0732 Apixaban 2.5 MG BID 09/28 1000 AC 10/01 PO 2040 Benzocaine/Menthol 1 CELIA Q2P PRN 09/30 0100 AC 09/30 PO 0118 Calcium/Vitamin D 500 MG DAILY 09/22 1929 AC 10/01 PO 0732 Daptomycin 500 MG Q24H 09/28 1830 AC 10/01 Sodium Chloride 50 ML IV 2040 Epoetin Onofre 20,000 U ONCE A WEEK 09/29 1030 AC 09/29 SC 1139 Escitalopram Oxalate 10 MG DAILY 09/23 1000 AC 10/01 PO 0732 Filgrastim 300 MCG DAILY 09/28 1533 AC 10/01 SC 0731 Insulin Aspart 0 TIDAC/HS 09/28 1700 AC 10/01 SC 1700 Insulin Detemir 20 UNITS 8AM 09/30 0800 AC 10/01 SC 0731 Leucovorin Calcium 25 MG DAILY 09/28 1000 AC 10/01 PO 10/03 1001 0732 Lidocaine/Diphenhydr/ 5 ML Q4-6 PRN PRN 09/30 1530 AC 10/01 Alum/Mg/Simeth PO 2040 Magnesium Oxide 400 MG ONE ONE 10/01 1300 DC 10/01 PO 10/01 1301 1415 Metoprolol Succinate 12.5 MG DAILY 09/23 1000 AC 10/01 PO 0732 Tacrolimus 0.75 MG 0800 10/01 0800 AC 10/01 PO 0732 Tacrolimus 2 MG 0800 09/30 0800 AC 10/01 PO 0732 Last 24 Hrs of Lab/Joel Results Last 24 Hrs of Labs/Mics: Laboratory Tests 10/01/17 1900: CBC w Diff Cancelled, WBC Cancelled, RBC Cancelled, Hgb Cancelled, Hct Cancelled , MCV Cancelled, MCH Cancelled, MCHC Cancelled, RDW Cancelled, Plt Count Cancelled, MPV Cancelled 10/01/17 1220: CBC w Diff MAN DIFF ORDERED, RBC 2.70 L, MCV 82.5, MCH 27.1, MCHC 32.8 L, RDW 14.4, MPV 7.9, Gran % 25.8 L, Lymphocytes % 26.5, Monocytes % 39.2 H, Eosinophils % 6.6 H, Basophils % 1.9, Absolute Granulocytes 0.5 L, Segmented Neutrophils 12 L, Band Neutrophils 9 H, Absolute Lymphocytes 0.5 L, Lymphocytes 29, Monocytes 42 H, Absolute Monocytes 0.7 H, Eosinophils 4, Absolute Eosinophils 0.1, Basophils 4 H, Absolute Basophils 0, Nucleated RBCs 7 H, Platelet Estimate VERIFIED BY SMEAR, Polychromasia 1+, Tacrolimus Cancelled 10/01/17 0600: Anion Gap 11, Estimated GFR 43 L, BUN/Creatinine Ratio 20.6, Magnesium 1.7, CBC w Diff MAN DIFF ORDERED, RBC 2.74 L, MCV 82.9, MCH 27.1, MCHC 32.6 L, RDW 14.0 , MPV 8.3, Gran % 21.7 L, Lymphocytes % 29.8, Monocytes % 39.9 H, Eosinophils % 7.1 H, Basophils % 1.5, Absolute Granulocytes 0.5 L, Segmented Neutrophils 8 L, Band Neutrophils 6 H, Absolute Lymphocytes 0.6 L, Lymphocytes 32, Monocytes 39 H, Absolute Monocytes 0.8 H, Eosinophils 9 H, Absolute Eosinophils 0.1, Basophils 5 H, Absolute Basophils 0, Myelocytes 1 H, Nucleated RBCs 7 H, Platelet Estimate VERIFIED BY SMEAR, Polychromasia 1+, Tacrolimus Pending Assessment/Plan Assessment: Patient is a 71-year-old male with a PMH significant for ESRD status post renal transplant on tacrolimus and CellCept, paroxysmal atrial fibrillation on Eliquis , HTN, HLD, CVA, DM, with recent admission to [facility] for osteomyelitis , 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 Problem list #Sepsis 2/2 to R foot osteomyelitils MAXIMUM TEMPERATURE 99.4 in 24 hours WBC 2.1 CRP >9 Blood cultures + for MRSA Surgical cultures + for MRSA Arterial Doppler: Decreased flow is noted within the right anterior tibial artery, lower part of the left popliteal, and posterior tibial, anterior tibial and dorsalis pedis arteries. TESS negative for vegetation but small PFO and atherosclerotic disease MRI + for foci most liekly embolic in origin and favoring bland > septic origin Baseline CPK 81 -plan for proline for IV abx outpatiient -f/u tacrolimus level daily -keep mg >2 - switched to daptomycin from vanco. dc'ed statin due to risk of rhabdo. #neurtopenia + anemia in the setting of ckd s/p renal transplant WBC 2.1 Perpherial flow cytometry suggesting BM biopsy for MDS -ceftaz 1 g every 8 and Flagyl 500 mg every 8 and panculture for fevers. -Get CT abdomen for potential colitis for persistent fevers -contonie neuoprogen and epo -Continue neutropenic diet and precautions -Follow-up hematology oncology recs #SHIRA on CKD History of renal transplant Creatinine 1.6 (baseline 1.2) Tacrolimus level 17.4 -stopped fluids -f/u cmv viral load, call ID if positive -dc mycophenolate'ed -daily tacrolimus levels -Reduce tacrolimus 2.75 mg daily -Follow nephrology recommendations -Continue calcium/vitamin D #sore throat Rapid flu negative Strep throat culture negative -f/u repeat bcx from 10/01 -cont magic mouth wash -monitor vitals #Altered mental status/hallucinations Suddent onset of hallucinatinations and AMS starting last night Head CT negative -much improved after stopping dicyclomine, morphine , burproprion #H/H drop / anemia Hemoglobin 7.4 and repeat 7.3 (10/01) Folate 12.2, B12 >1000, ferritin >1760, iron 28 -Follow-up CBCs posttransfusion -Continue folinic acid 25 mg X7 days -cont neupogen and epo -Continue to monitor #diabtes Maintain blood sugars less than 150 -cont endo recs #New onset left bundle branch block/mild elevated troponins Troponins 0.04, 0.18, 0.13 -Mild elevated troponins likely secondary to infection -Continue to follow cardiology recommendations #Chronic medical problems including PVD, paroxysmal A. fib, HTN, HLD, -Continue metoprolol, amiodarone, escitalopram, bupropion, apixaban, dicyclomine , Maalox, DVT prophylaxis: Eliquis after surgery. Currently held for surgery CODE STATUS: Full code Problem List: 1. Neutropenia 2. Renal transplant rejection 3. SHIRA (acute kidney injury) 4. Osteomyelitis Pain Ratin Pain Location: r foot Pain Goal: Pain 4 or less Pain Plan: pain pathway Tomorrow's Labs & Rationales: cbc bep mg tacrolimus
[2017-10-01 13:56] LABS: ABSOLUTE BASOPHIL COUNT 0 /CUMM (0.0-0.2); ABSOLUTE EOSINOPHIL COUNT 0.1 /CUMM (0.0-0.7); ABSOLUTE GRANULOCYTE CT 0.5 /CUMM (1.4-6.5); ABSOLUTE LYMPH COUNT 0.5 /CUMM (1.2-3.4); ABSOLUTE MONOCYTE COUNT 0.7 /CUMM (0.10-0.60); BASOPHIL % 1.9 % (0.0-2.0); EOSINOPHIL % 6.6 % (0-5); GRANULOCYTE % 25.8 % (42.2-75.2); HEMATOCRIT 22.3 % (42-52); MEAN CORPUSCULAR HGB 27.1 PG (27.0-31.0); MEAN CORPUSCULAR HGB CONC 32.8 G/DL (33.0-37.0); MEAN CORPUSCULAR VOLUME 82.5 FL (80.0-94.0); MEAN PLATELET VOLUME 7.9 FL (7.4-10.4); PLATELET COUNT 305 /CUMM (130-400); RBC DISTRIBUTION WIDTH 14.4 % (11.5-14.5)
--- NOTE | 2017-10-01 14:09 | PN- Infect Dx ---
Subjective Subjective: No fever; reports loose stools. Sore throat improved. Review of Systems Comments: 12 points reviewed as noted, otherwise negative. Objective Last 24 Hrs of Vital Signs/I&O Vital Signs Date Time Temp Pulse Resp B/P B/P Pulse O2 O2 Flow FiO2 Mean Ox Delivery Rate 10/01 0732 70 138/78 10/01 0732 70 138/78 10/01 0648 99.0 70 20 138/78 94 09/30 2338 99.2 74 18 146/64 94 Room Air 09/30 1411 99.4 70 18 120/54 96 Room Air Intake & Output 10/01 1600 10/01 0800 10/01 0000 Intake Total 240 360 Output Total 1100 425 350 Balance -1100 -185 10 Intake, Oral 240 360 Number 1 Bowel Movements Output, Urine 1100 425 350 Patient 210 lb Weight Weight Bed scale Measurement Method Physical Exam Other Physical Findings: He is awake and alert, well nourished HEENT AT/NC, no thrush Neck No JVD Lungs are clear Heart S1 S2 present; no r/g Abd soft, protuberant, NT Extremities right foot dressing intact Results Last 24 Hours of Lab Results: Laboratory Tests 10/01 10/01 1220 0600 Chemistry Sodium (137 - 145 mmol/L) 141 Potassium (3.5 - 5.1 mmol/L) 4.8 Chloride (98 - 107 mmol/L) 108 H Carbon Dioxide (22 - 30 mmol/L) 22 Anion Gap (5 - 16) 11 BUN (9 - 20 mg/dL) 33 H Creatinine (0.7 - 1.2 mg/dL) 1.6 H Estimated GFR (>60 ml/min) 43 L BUN/Creatinine Ratio (7 - 25 %) 20.6 Magnesium (1.6 - 2.3 mg/dL) 1.7 Hematology CBC w Diff Pending MAN DIFF ORDERED WBC (4.8 - 10.8 /CUMM) Pending 2.0 L RBC (4.70 - 6.10 /CUMM) Pending 2.74 L Hgb (14.0 - 18.0 G/DL) Pending 7.4 *L Hct (42 - 52 %) Pending 22.7 L MCV (80.0 - 94.0 FL) Pending 82.9 MCH (27.0 - 31.0 PG) Pending 27.1 MCHC (33.0 - 37.0 G/DL) Pending 32.6 L RDW (11.5 - 14.5 %) Pending 14.0 Plt Count (130 - 400 /CUMM) Pending 318 MPV (7.4 - 10.4 FL) Pending 8.3 Gran % (42.2 - 75.2 %) 21.7 L Lymphocytes % (20.5 - 51.1 %) 29.8 Monocytes % (1.7 - 9.3 %) 39.9 H Eosinophils % (0 - 5 %) 7.1 H Basophils % (0.0 - 2.0 %) 1.5 Absolute Granulocytes (1.4 - 6.5 /CUMM) 0.5 L Segmented Neutrophils (42.2 - 75.2 %) 8 L Band Neutrophils (0.0 - 5.0 %) 6 H Absolute Lymphocytes (1.2 - 3.4 /CUMM) 0.6 L Lymphocytes (20.5 - 51.1 %) 32 Monocytes (1.7 - 9.3 %) 39 H Absolute Monocytes (0.10 - 0.60 /CUMM) 0.8 H Eosinophils (0 - 5.0 %) 9 H Absolute Eosinophils (0.0 - 0.7 /CUMM) 0.1 Basophils (0.0 - 2.0 %) 5 H Absolute Basophils (0.0 - 0.2 /CUMM) 0 Myelocytes (0 - 0 %) 1 H Nucleated RBCs (0.0 - 0.0 /100WBC) 7 H Platelet Estimate (ADEQUATE) VERIFIED BY SMEAR Polychromasia 1+ Toxicology Tacrolimus Pending Pending Last 24 Hours of Joel Results: UC; BC from 09/30 NGTD SPEC #: [id number] ADELAIDA: 09/30/171200 STATUS: COMP RECD: 09/30/171347 [facility] DR: Christina RANKIN,[facility] SOURCE: NASOPHARYN ENTR: 09/30/[address]: Lakeisha RANKIN,[facility] SPDESC: FLUMER ORDERED: QUIK FLU AB Procedure Result > RAPID VIRAL INFLUENZA A/B Final 09/30/17-1402 NEGATIVE FOR INFLUENZA A & B Note Rapid influenza diagnostic tests have low to moderate sensitivity compared to viral culture or RT-PCR. A negative result does not exclude influenza virus infection. If influenza is circulating in your community, a diagnosis of influenza should be considered based on patient's clinical presentation and empiric antiviral treatment should be considered, if indicated. FOR ER PATIENTS WHO ARE ADMITTED AND HEALTHCARE WORKERS, IF THE RAPID FLU IS NEGATIVE AND PATIENT HAS INFLUENZA LIKE ILLNESS, PLEASE CALL MICROBIOLOGY DEPT. [phone] FOR RT-PCR SENDOUT. PLEASE FOLLOW ISOLATION PRECAUTIONS FOR ALL SUSPECTED INFLUENZA CASES. Recent Imaging Studies: IMPRESSION: 1. No acute infarct, mass lesion, lobar hemorrhage, or evidence of hydrocephalus. 2. More than 10 punctate foci of susceptibility signal are seen throughout the cerebral hemispheres and in the left cerebellum centered at the garcia-white junction. The etiology of these foci is most likely embolic however the imaging features do not allow discrimination between bland and septic embolism. No significant T2 hyperintensity is seen associated with these susceptibility foci suggesting that a bland etiology is more likely. Postcontrast images (including volumetric images) could be performed to evaluate for any associated enhancement as would be seen in the setting of cerebritis although there are no findings to suggest this at the current time. DICTATED BY: Oneil Molina MD DATE/TIME DICTATED:09/28/171413 JOURNEYMAN GLAZIER:PETRA DATE/TIME TRANSCRIBED:09/28/171413 Assessment/Plan ID Impression: 71-year-old man with a history of diabetes, end-stage renal disease, on dialysis in the past via a left forearm fistula, status post renal transplant 3 years ago , maintained on CellCept and Tacrolimus, hypertension, hyperlipidemia, atrial fibrillation, CVA, status post amputation of the left third, right third and partial right fourth toes admitted 09/22. Low grade temp, now on Daptomycin; Day 9 of treatment for MRSA sepsis (JOEL Vanco 1.5; vancomycin d/c'ed on 09/28). He will require a prolonged course of antibiotics for MRSA osteomyelitis of the right foot status post revisional partial first ray resection, placement of a wound VAC and right peroneal artery angioplasty. The head MRI findings are noted and suggest an embolic process, though his TESS was negative. CellCept was discontinued 09/28. . Suggestion: 1. If febrile panculture and add empirically iv Ceftazidime 1 gm q 8 h as well as Flagyl 500 mg iv q 8 h, as ANC is trending up (714). 2. Continue close monitoring of his renal function and CBC w/ diff. 3. Continue Daptomycin D #4; weekly LFT's and CPK while treated with iv Daptomycin (dose adjusted per kidney function per pharmacy). 4. If persistent diarrhea/developing fever CT A/P eval colitis.
[2017-10-01 14:15] LABS: WHITE BLOOD CELL COUNT 2.1 /CUMM (4.8-10.8)
[2017-10-01 14:58] VITALS: BP 148/68
--- NOTE | 2017-10-01 15:59 | PN- Podiatry ---
Subjective Subjective: Patient seen at bedside with no new acute complaints. Patient denies any foot pain. Objective Vital Signs and I&Os Vital Signs Date Time Temp Pulse Resp B/P B/P Pulse O2 O2 Flow FiO2 Mean Ox Delivery Rate 10/01 1458 98.7 64 20 148/68 92 Room Air 10/01 0732 70 138/78 10/01 0732 70 138/78 10/01 0648 99.0 70 20 138/78 94 09/30 2338 99.2 74 18 146/64 94 Room Air Intake & Output 10/01 1600 10/01 0800 10/01 0000 09/30 1600 09/30 0800 09/30 0000 Intake Total 480 925 332 1901 900 1000 Output Total 1500 425 350 450 Balance -1020 -550 89 [id number] 660 9998 Intake, IV 800 800 800 Intake, Oral 480 240 360 480 100 200 Number 1 1 2 Bowel Movements Output, Urine 1500 425 350 450 Patient 210 lb Weight Weight Bed scale Measurement Method Physical Exam: VAC change at bedside with little interval granulation noted. An area of 1.5 cm x 1.5 cm necrosis identified at the central inferior margin of the wound bed. Dark, serosanguineous drainage identified within the canister. Assessment/Plan Assessment/Plan Right foot osteomyelitis. Little improvement noted in the wound bed, which raises the concern for persistent peripheral arterial ischemia. Continue IV antibiotics per ID recommendations. Attending MD Review Statement Attending Statement Attending MD Statement: examined this patient
--- NOTE | 2017-10-01 16:13 | PN- Att Addend ---
Attending Addendum Attending Brief Note Covering attending note. Patient sitting at the edge of the bed, no new complaints her temperature max 99 .2 No major changes on physical patient was seen by podiatry to the back wound and checked stated it was. Little change from the granulation tissue. Patient was seen by endocrine and infectious diseases. Will follow recommendations, transfusion ordered by rn internal medicine. Continue monitoring blood work closely Intake & Output 10/01 1600 10/01 0400 09/30 1600 09/30 0400 09/29 1600 09/29 0400 Intake Total 480 713 1647 1000 700 510 Output Total 1925 350 450 100 500 Balance -1205 10 1730 1000 600 10 Intake, IV 1600 800 400 10 Intake, Oral 720 360 580 200 300 500 Number 2 2 1 Bowel Movements Output, Urine 1925 350 450 100 500 Patient 210 lb 194 lb Weight Weight Bed scale Measurement Method Current Medications Sig/Ira Start time Last Medication Dose Route Stop Time Status Admin Acetaminophen 650 MG Q6P PRN 09/22 1600 AC 10/01 PO 1336 Amiodarone HCl 100 MG DAILY 09/23 1000 AC 10/01 PO 0732 Apixaban 2.5 MG BID 09/28 1000 AC 10/01 PO 0732 Benzocaine/Menthol 1 CELIA Q2P PRN 09/30 0100 AC 09/30 PO 0118 Calcium/Vitamin D 500 MG DAILY 09/22 1929 AC 10/01 PO 0732 Daptomycin 500 MG Q24H 09/28 1830 AC 09/30 Sodium Chloride 50 ML IV 1815 Epoetin Onofre 20,000 U ONCE A WEEK 09/29 1030 AC 09/29 [place] 1139 Escitalopram Oxalate 10 MG DAILY 09/23 1000 AC 10/01 PO 0732 Filgrastim 300 MCG DAILY 09/28 1533 AC 10/01 SC 0731 Insulin Aspart 0 TIDAC/HS 09/28 1700 AC 10/01 SC 1140 Insulin Detemir 20 UNITS 8AM 09/30 0800 AC 10/01 SC 0731 Leucovorin Calcium 25 MG DAILY 09/28 1000 AC 10/01 PO 10/03 1001 0732 Lidocaine/Diphenhydr/ 5 ML Q4-6 PRN PRN 09/30 1530 AC 10/01 Alum/Mg/Simeth PO 0739 Magnesium Oxide 400 MG ONE ONE 10/01 1300 DC 10/01 PO 10/01 1301 1415 Metoprolol Succinate 12.5 MG DAILY 09/23 1000 AC 10/01 PO 0732 Tacrolimus 0.75 MG 0810/01 0800 AC 10/01 PO 0732 Tacrolimus 2 MG 09/30 0800 AC 10/01 PO 0732 Laboratory Tests 10/01/17 1220: CBC w Diff MAN DIFF ORDERED, RBC 2.70 L, MCV 82.5, MCH 27.1, MCHC 32.8 L, RDW 14.4, MPV 7.9, Gran % 25.8 L, Lymphocytes % 26.5, Monocytes % 39.2 H, Eosinophils % 6.6 H, Basophils % 1.9, Absolute Granulocytes 0.5 L, Segmented Neutrophils 12 L, Band Neutrophils 9 H, Absolute Lymphocytes 0.5 L, Lymphocytes 29, Monocytes 42 H, Absolute Monocytes 0.7 H, Eosinophils 4, Absolute Eosinophils 0.1, Basophils 4 H, Absolute Basophils 0, Nucleated RBCs 7 H, Platelet Estimate VERIFIED BY SMEAR, Polychromasia 1+, Tacrolimus Cancelled 10/01/17 0600: Anion Gap 11, Estimated GFR 43 L, BUN/Creatinine Ratio 20.6, Magnesium 1.7, CBC w Diff MAN DIFF ORDERED, RBC 2.74 L, MCV 82.9, MCH 27.1, MCHC 32.6 L, RDW 14.0 , MPV 8.3, Gran % 21.7 L, Lymphocytes % 29.8, Monocytes % 39.9 H, Eosinophils % 7.1 H, Basophils % 1.5, Absolute Granulocytes 0.5 L, Segmented Neutrophils 8 L, Band Neutrophils 6 H, Absolute Lymphocytes 0.6 L, Lymphocytes 32, Monocytes 39 H, Absolute Monocytes 0.8 H, Eosinophils 9 H, Absolute Eosinophils 0.1, Basophils 5 H, Absolute Basophils 0, Myelocytes 1 H, Nucleated RBCs 7 H, Platelet Estimate VERIFIED BY SMEAR, Polychromasia 1+, Tacrolimus Pending 09/30/17 0647: Anion Gap 12, Estimated GFR 43 L, BUN/Creatinine Ratio 23.1, Calcium 7.3 L, Phosphorus 3.9, Magnesium 1.8, CBC w Diff MAN DIFF ORDERED, RBC 2.95 L, MCV 83.7, MCH 27.3, MCHC 32.7 L, RDW 14.0, MPV 7.9, Gran % 26.8 L, Lymphocytes % 26.1, Monocytes % 35.3 H, Eosinophils % 10.1 H, Basophils % 1.7, Absolute Granulocytes 0.4 L, Segmented Neutrophils 26 L, Band Neutrophils 6 H, Absolute Lymphocytes 0.4 L, Lymphocytes 26, Monocytes 30 H, Absolute Monocytes 0.6, Eosinophils 9 H, Absolute Eosinophils 0.2, Basophils 2, Absolute Basophils 0, Myelocytes 1 H, Nucleated RBCs 2 H, Platelet Estimate ADEQUATE, Hypochromic -Microcytic 2+, Poikilocytosis 2+, Anisocytosis 1+, Ovalocytes 1+, Tacrolimus 17.4 09/29/17 0642: Anion Gap 12, Estimated GFR 33 L, BUN/Creatinine Ratio 22.0, Magnesium 1.9, CBC w Diff MAN DIFF ORDERED, RBC 2.92 L, MCV 83.9, MCH 27.6, MCHC 32.9 L, RDW 14.1 , MPV 8.2, Gran % 41.7 L, Lymphocytes % 21.0, Monocytes % 27.2 H, Eosinophils % 7.9 H, Basophils % 2.2 H, Absolute Granulocytes 0.7 L, Segmented Neutrophils 24 L, Band Neutrophils 6 H, Absolute Lymphocytes 0.4 L, Lymphocytes 29, Monocytes 29 H, Absolute Monocytes 0.5, Eosinophils 9 H, Absolute Eosinophils 0.1, Basophils 3 H, Absolute Basophils 0, Nucleated RBCs 1 H, Platelet Estimate ADEQUATE, Hypochromic-Microcytic 1+, Poikilocytosis 1+, Anisocytosis 1+ 09/29/17 0600: Magnesium Cancelled, Tacrolimus 13.8 09/28/17 1620: CMV Specimen Source Pending, CMV DNA PCR log IU/mL Pending, CMV DNA PCR IU/mL Pending Microbiology 10/01 1199 NASOPHARYN: Influenza Virus A & B Rapid Smear - COMP 10/01 939 BLOOD: Blood Culture - RES 09/30 929 BLOOD: Blood Culture - RES Microbiology 09/30 1200 NASOPHARYN: Influenza Virus A & B Rapid Smear - COMP 10/01 939 BLOOD: Blood Culture - RES 09/30 929 BLOOD: Blood Culture - RES Vital Signs Date Time Temp Pulse Resp B/P B/P Pulse O2 O2 Flow FiO2 Mean Ox Delivery Rate 10/01 1458 98.7 64 20 148/68 92 Room Air 10/01 0732 70 138/78 10/01 0732 70 138/78 10/01 0648 99.0 70 20 138/78 94 09/30 2338 99.2 74 18 146/64 94 Room Air
[2017-10-01 20:29] VITALS: BP 138/64
[2017-10-01 23:02] LABS: ABSOLUTE BASOPHIL COUNT 0 /CUMM (0.0-0.2); ABSOLUTE EOSINOPHIL COUNT 0.1 /CUMM (0.0-0.7); ABSOLUTE GRANULOCYTE CT 0.8 /CUMM (1.4-6.5); ABSOLUTE LYMPH COUNT 0.6 /CUMM (1.2-3.4); MEAN PLATELET VOLUME 7.7 FL (7.4-10.4)
[2017-10-01 23:04] LABS: BASOPHIL % 0.9 % (0.0-2.0); EOSINOPHIL % 4.8 % (0-5); GRANULOCYTE % 31.2 % (42.2-75.2); HEMATOCRIT 25.1 % (42-52); MEAN CORPUSCULAR HGB 26.9 PG (27.0-31.0); MEAN CORPUSCULAR HGB CONC 32.3 G/DL (33.0-37.0); MEAN CORPUSCULAR VOLUME 83.4 FL (80.0-94.0); PLATELET COUNT 318 /CUMM (130-400); RBC DISTRIBUTION WIDTH 14.2 % (11.5-14.5); RED BLOOD CELL CT 3.02 /CUMM (4.70-6.10)
[2017-10-01 23:06] VITALS: BP 154/68
[2017-10-01 23:17] LABS: WHITE BLOOD CELL COUNT 2.6 /CUMM (4.8-10.8)
[2017-10-02 07:26] VITALS: BP 138/80
--- NOTE | 2017-10-02 08:14 | PN- Infect Dx ---
Subjective Subjective: No fever/chills. No abd pain. Review of Systems Comments: 12 points reviewed as noted, otherwise negative. Objective Last 24 Hrs of Vital Signs/I&O Vital Signs Date Time Temp Pulse Resp B/P B/P Pulse O2 O2 Flow FiO2 Mean Ox Delivery Rate 10/02 0726 98.4 74 20 138/80 94 10/01 2306 99.5 70 19 154/68 92 10/01 2029 98.8 69 16 138/64 93 10/01 1458 98.7 64 20 148/68 92 Room Air Intake & Output 10/02 1600 10/02 0800 10/02 0000 Intake Total 150 300 Output Total 375 325 Balance -225 -25 Intake, Oral 150 300 Number 1 Bowel Movements Output, Urine 375 325 Patient 207 lb Weight Physical Exam Other Physical Findings: He is awake and alert, well nourished HEENT AT/NC, no thrush Neck No JVD Lungs are clear Heart S1 S2 present; no r/g Abd soft, protuberant, NT Extremities right foot dressing in place Results Last 24 Hours of Lab Results: Laboratory Tests 10/02 10/01 10/01 0600 2235 1900 Hematology CBC w Diff MAN DIFF ORDERED Cancelled WBC (4.8 - 10.8 /CUMM) 2.6 L Cancelled RBC (4.70 - 6.10 /CUMM) 3.02 L Cancelled Hgb (14.0 - 18.0 G/DL) 8.1 L Cancelled Hct (42 - 52 %) 25.1 L Cancelled MCV (80.0 - 94.0 FL) 83.4 Cancelled MCH (27.0 - 31.0 PG) 26.9 L Cancelled MCHC (33.0 - 37.0 G/DL) 32.3 L Cancelled RDW (11.5 - 14.5 %) 14.2 Cancelled Plt Count (130 - 400 /CUMM) 318 Cancelled MPV (7.4 - 10.4 FL) 7.7 Cancelled Gran % (42.2 - 75.2 %) 31.2 L Lymphocytes % (20.5 - 51.1 %) 23.9 Monocytes % (1.7 - 9.3 %) 39.2 H Eosinophils % (0 - 5 %) 4.8 Basophils % (0.0 - 2.0 %) 0.9 Absolute Granulocytes (1.4 - 6.5 /CUMM) 0.8 L Segmented Neutrophils (42.2 - 75.2 %) 18 L Band Neutrophils (0.0 - 5.0 %) 9 H Absolute Lymphocytes (1.2 - 3.4 /CUMM) 0.6 L Lymphocytes (20.5 - 51.1 %) 20 L Monocytes (1.7 - 9.3 %) 40 H Absolute Monocytes (0.10 - 0.60 /CUMM) 1.0 H Eosinophils (0 - 5.0 %) 8 H Absolute Eosinophils (0.0 - 0.7 /CUMM) 0.1 Basophils (0.0 - 2.0 %) 2 Absolute Basophils (0.0 - 0.2 /CUMM) 0 Metamyelocytes (0.0 - 1.0 %) 1 Myelocytes (0 - 0 %) 2 H Nucleated RBCs (0.0 - 0.0 /100WBC) 11 H Platelet Estimate (ADEQUATE) ADEQUATE Polychromasia 1+ Toxicology Tacrolimus Pending 10/01 1220 Hematology CBC w Diff MAN DIFF ORDERED WBC (4.8 - 10.8 /CUMM) 2.1 L RBC (4.70 - 6.10 /CUMM) 2.70 L Hgb (14.0 - 18.0 G/DL) 7.3 *L Hct (42 - 52 %) 22.3 L MCV (80.0 - 94.0 FL) 82.5 MCH (27.0 - 31.0 PG) 27.1 MCHC (33.0 - 37.0 G/DL) 32.8 L RDW (11.5 - 14.5 %) 14.4 Plt Count (130 - 400 /CUMM) 305 MPV (7.4 - 10.4 FL) 7.9 Gran % (42.2 - 75.2 %) 25.8 L Lymphocytes % (20.5 - 51.1 %) 26.5 Monocytes % (1.7 - 9.3 %) 39.2 H Eosinophils % (0 - 5 %) 6.6 H Basophils % (0.0 - 2.0 %) 1.9 Absolute Granulocytes (1.4 - 6.5 /CUMM) 0.5 L Segmented Neutrophils (42.2 - 75.2 %) 12 L Band Neutrophils (0.0 - 5.0 %) 9 H Absolute Lymphocytes (1.2 - 3.4 /CUMM) 0.5 L Lymphocytes (20.5 - 51.1 %) 29 Monocytes (1.7 - 9.3 %) 42 H Absolute Monocytes (0.10 - 0.60 /CUMM) 0.7 H Eosinophils (0 - 5.0 %) 4 Absolute Eosinophils (0.0 - 0.7 /CUMM) 0.1 Basophils (0.0 - 2.0 %) 4 H Absolute Basophils (0.0 - 0.2 /CUMM) 0 Nucleated RBCs (0.0 - 0.0 /100WBC) 7 H Platelet Estimate (ADEQUATE) VERIFIED BY SMEAR Polychromasia 1+ Toxicology Tacrolimus Cancelled Last 24 Hours of Joel Results: reviewed Recent Imaging Studies: reviewed Assessment/Plan ID Impression: 71-year-old man with a history of diabetes, end-stage renal disease, on dialysis in the past via a left forearm fistula, status post renal transplant 3 years ago , maintained on CellCept and Tacrolimus, hypertension, hyperlipidemia, atrial fibrillation, CVA, status post amputation of the left third, right third and partial right fourth toes admitted 09/22. Afebrile, now on Daptomycin; Day 10 of treatment for MRSA sepsis (JOEL Vanco 1.5; vancomycin d/c'ed on 09/28). He will require a prolonged course of antibiotics for MRSA osteomyelitis of the right foot status post revisional partial first ray resection, placement of a wound VAC and right peroneal artery angioplasty; seen by podiatry previous day; wound bed w/o expected healing raising the question of ischemia The head MRI findings are noted and suggest an embolic process, though his TESS was negative. CellCept was discontinued 09/28. Neutropenia; WBC followed serially Suggestion: 1. If febrile panculture and add empirically iv Ceftazidime 1 gm q 8 h. 2. Continue close monitoring of his renal function and CBC w/ diff. 3. Continue Daptomycin D #5; weekly LFT's and CPK while treated with iv Daptomycin (dose adjusted per kidney function per pharmacy). 4. F/U podiatry recom.
--- NOTE | 2017-10-02 08:46 | PN- Housestaff ---
Subjective Follow-up For: Osteomyelitis MRSA New left bundle branch block SHIRA in Renal transplant patient Neuropenia, improving AMS, resolved Subjective: Patient was seen and examined this morning, lying comfortably in bed, offers no complaints. Vital signs are stable, continue to be Afebrile. No overnight events reported by the nurse or the patient. Review of Systems Constitutional: Reports: see HPI. Objective Last 24 Hrs of Vital Signs/I&O Vital Signs Date Time Temp Pulse Resp B/P B/P Pulse O2 O2 Flow FiO2 Mean Ox Delivery Rate 10/02 1600 93 Room Air 10/02 1409 98.1 66 20 130/72 93 Room Air 10/02 0917 83 138/80 10/02 0916 83 138/80 10/02 0800 94 Room Air 10/02 0726 98.4 74 20 138/80 94 10/01 2306 99.5 70 19 154/68 92 10/01 2029 98.8 69 16 138/64 93 Intake & Output 10/02 1600 10/02 0800 10/02 0000 Intake Total 580 150 300 Output Total 450 375 325 Balance 130 -225 -25 Intake, Oral 580 150 300 Number 3 1 Bowel Movements Output, Urine 450 375 325 Patient 93.667 kg Weight Physical Exam General Appearance: Alert, Oriented X3, Cooperative, No Acute Distress Skin: No Rashes, No Breakdown, No Significant Lesion Skin Temp/Moisture Exam: Warm/Dry HEENT: Atraumatic, PERRLA, EOMI, Mucous Membr. moist/pink Neck: Supple Cardiovascular: Regular Rate, Normal S1, Normal S2, No Murmurs Lungs: Clear to Auscultation, Normal Air Movement Abdomen: Normal Bowel Sounds, Soft, No Tenderness, No Hepatospenomegaly Neurological: Normal Speech, Strength at 5/5 X4 Ext, Normal Tone, Sensation Intact Extremities: No Clubbing, No Cyanosis Assessment/Plan Assessment: Patient is a 71-year-old male with a PMH significant for ESRD status post renal transplant on tacrolimus and CellCept, paroxysmal atrial fibrillation on Eliquis , HTN, HLD, CVA, DM, with recent admission to [facility] for osteomyelitis , 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 Problem list #Sepsis 2/2 to R foot osteomyelitils -Continue daptomycin D#5 -ID recommendation was followed -Blood culture 09/20 10/19 negative for any growth #neurtopenia + anemia in the setting of ckd s/p renal transplant -White blood cell improving, absolute neutrophil count is 150 which indicate mild neutropenia -CMV negative -Follow-up throat culture insetting of sore throat -Repeat blood culture from 09/30/17 negative -Negative rapid strep test and flu -Continue Neupogen -Hematology consultation appreciated #SHIRA on CKD -History of renal transplant -Creatinine 1.5 (baseline 1.2) -Tacrolimus level 9.7 -Avoid nephrotoxic medication #H/H drop / anemia -Hemoglobin 7.4 and repeat 7.3 (10/01)--status post 1 pack RBC transfusion, recheck hemoglobin is 8.1 -No clear source of bleeding, could be the surgical site however no obvious acute blood loss -Stool Hemoccult negative #Multiple episodes of loose stool -C. difficile negative #diabtes -Maintain blood sugars less than 150 -cont endo recs DVT prophylaxis: Eliquis CODE STATUS: Full code Problem List: 1. Neutropenia 2. Left bundle branch block 3. Renal transplant rejection 4. SHIRA (acute kidney injury) 5. Osteomyelitis 6. Post-operative state Pain Ratin Pain Location: n/a Pain Goal: Pain 4 or less Pain Plan: See medication, avoid narcotics Tomorrow's Labs & Rationales: CBC BMP Tacrolmus level
[2017-10-02 11:06] LABS: ABSOLUTE BASOPHIL COUNT 0 /CUMM (0.0-0.2); ABSOLUTE EOSINOPHIL COUNT 0.1 /CUMM (0.0-0.7); ABSOLUTE GRANULOCYTE CT 1.3 /CUMM (1.4-6.5); ABSOLUTE LYMPH COUNT 0.6 /CUMM (1.2-3.4); ABSOLUTE MONOCYTE COUNT 0.9 /CUMM (0.10-0.60); BASOPHIL % 0.6 % (0.0-2.0); EOSINOPHIL % 4.8 % (0-5); HEMATOCRIT 26.2 % (42-52); MEAN CORPUSCULAR HGB 27.4 PG (27.0-31.0); MEAN PLATELET VOLUME 7.5 FL (7.4-10.4); PLATELET COUNT 320 /CUMM (130-400); RBC DISTRIBUTION WIDTH 14.4 % (11.5-14.5); RED BLOOD CELL CT 3.15 /CUMM (4.70-6.10)
--- NOTE | 2017-10-02 13:37 | PN- Diabetes ---
Assessment/Plan Diabetes Assessment: Patient is a 71-year-old male with a PMH significant for ESRD status post renal transplant on tacrolimus and CellCept, paroxysmal atrial fibrillation on Eliquis , HTN, HLD, CVA, DM type 2, with recent admission to [facility] for osteomyelitis, status post amputation of the toes, was admitted for chronic right foot infection. He underwent angiogram, angioplasty of right peroneal artery, right foot procedure and wound vac placement on 09/27/2017. He had TESS done on 09/28/2017. Cr level was down to 1.5 on 10/02/2017. Currently he is on Levemir 20 units daily, Novolog coverage before meals and Novolog coverage at bedtime. His FSGs were 98, 84, 185 and 210 Plan: continue the current insulin regimen for now. monitor FSGs. will follow. Subjective Subjective: He has no special complaints. Objective Last 24 Hrs of Vital Signs/I&O Vital Signs Date Time Temp Pulse Resp B/P B/P Pulse O2 O2 Flow FiO2 Mean Ox Delivery Rate 10/02 0917 83 138/80 10/02 0916 83 138/80 10/02 0800 94 Room Air 10/02 0726 98.4 74 20 138/80 94 10/01 2306 99.5 70 19 154/68 92 10/01 2029 98.8 69 16 138/64 93 10/01 1458 98.7 64 20 148/68 92 Room Air Intake & Output 10/02 1600 10/02 0800 10/02 0000 Intake Total 150 300 Output Total 375 325 Balance -225 -25 Intake, Oral 150 300 Number 1 Bowel Movements Output, Urine 375 325 Patient 207 lb Weight Findings Pertinent Lab/Joel Results: Laboratory Tests 10/02 10/02 1044 0600 Chemistry Sodium (137 - 145 mmol/L) 140 Potassium (3.5 - 5.1 mmol/L) 4.6 Chloride (98 - 107 mmol/L) 106 Carbon Dioxide (22 - 30 mmol/L) 23 Anion Gap (5 - 16) 12 BUN (9 - 20 mg/dL) 31 H Creatinine (0.7 - 1.2 mg/dL) 1.5 H Estimated GFR (>60 ml/min) 46 L BUN/Creatinine Ratio (7 - 25 %) 20.7 Magnesium (1.6 - 2.3 mg/dL) 1.7 Hematology CBC w Diff MAN DIFF ORDERED WBC (4.8 - 10.8 /CUMM) 3.0 L RBC (4.70 - 6.10 /CUMM) 3.15 L Hgb (14.0 - 18.0 G/DL) 8.6 L Hct (42 - 52 %) 26.2 L MCV (80.0 - 94.0 FL) 83.0 MCH (27.0 - 31.0 PG) 27.4 MCHC (33.0 - 37.0 G/DL) 33.0 RDW (11.5 - 14.5 %) 14.4 Plt Count (130 - 400 /CUMM) 320 MPV (7.4 - 10.4 FL) 7.5 Gran % (42.2 - 75.2 %) 45.0 Lymphocytes % (20.5 - 51.1 %) 20.3 L Monocytes % (1.7 - 9.3 %) 29.3 H Eosinophils % (0 - 5 %) 4.8 Basophils % (0.0 - 2.0 %) 0.6 Absolute Granulocytes (1.4 - 6.5 /CUMM) 1.3 L Segmented Neutrophils (42.2 - 75.2 %) 21 L Band Neutrophils (0.0 - 5.0 %) 11 H Absolute Lymphocytes (1.2 - 3.4 /CUMM) 0.6 L Lymphocytes (20.5 - 51.1 %) 25 Monocytes (1.7 - 9.3 %) 31 H Absolute Monocytes (0.10 - 0.60 /CUMM) 0.9 H Eosinophils (0 - 5.0 %) 5 Absolute Eosinophils (0.0 - 0.7 /CUMM) 0.1 Basophils (0.0 - 2.0 %) 5 H Absolute Basophils (0.0 - 0.2 /CUMM) 0 Metamyelocytes (0.0 - 1.0 %) 1 Myelocytes (0 - 0 %) 1 H Nucleated RBCs (0.0 - 0.0 /100WBC) 3 H Platelet Estimate (ADEQUATE) VERIFIED BY SMEAR Polychromasia 1+ Poikilocytosis 1+ Anisocytosis 1+ Ovalocytes 1+ Toxicology Tacrolimus Pending 10/01 10/01 5360 7073 Hematology CBC w Diff MAN DIFF ORDERED Cancelled WBC (4.8 - 10.8 /CUMM) 2.6 L Cancelled RBC (4.70 - 6.10 /CUMM) 3.02 L Cancelled Hgb (14.0 - 18.0 G/DL) 8.1 L Cancelled Hct (42 - 52 %) 25.1 L Cancelled MCV (80.0 - 94.0 FL) 83.4 Cancelled MCH (27.0 - 31.0 PG) 26.9 L Cancelled MCHC (33.0 - 37.0 G/DL) 32.3 L Cancelled RDW (11.5 - 14.5 %) 14.2 Cancelled Plt Count (130 - 400 /CUMM) 318 Cancelled MPV (7.4 - 10.4 FL) 7.7 Cancelled Gran % (42.2 - 75.2 %) 31.2 L Lymphocytes % (20.5 - 51.1 %) 23.9 Monocytes % (1.7 - 9.3 %) 39.2 H Eosinophils % (0 - 5 %) 4.8 Basophils % (0.0 - 2.0 %) 0.9 Absolute Granulocytes (1.4 - 6.5 /CUMM) 0.8 L Segmented Neutrophils (42.2 - 75.2 %) 18 L Band Neutrophils (0.0 - 5.0 %) 9 H Absolute Lymphocytes (1.2 - 3.4 /CUMM) 0.6 L Lymphocytes (20.5 - 51.1 %) 20 L Monocytes (1.7 - 9.3 %) 40 H Absolute Monocytes (0.10 - 0.60 /CUMM) 1.0 H Eosinophils (0 - 5.0 %) 8 H Absolute Eosinophils (0.0 - 0.7 /CUMM) 0.1 Basophils (0.0 - 2.0 %) 2 Absolute Basophils (0.0 - 0.2 /CUMM) 0 Metamyelocytes (0.0 - 1.0 %) 1 Myelocytes (0 - 0 %) 2 H Nucleated RBCs (0.0 - 0.0 /100WBC) 11 H Platelet Estimate (ADEQUATE) ADEQUATE Polychromasia 1+
[2017-10-02 14:09] VITALS: BP 130/72
--- NOTE | 2017-10-02 14:15 | PN- Att Addend ---
Attending Addendum Attending Brief Note Covering attending note: Patient seems to be feeling a little better in better spirits. Vital signs are stable no fever, no major changes on physical his hemoglobin is still low but a little better since yesterday. Appreciate endocrinology this consultation to continue the same insulin coverage was appreciated hematology's input and recommendations Intake & Output 10/02 1600 10/02 0400 10/01 1600 10/01 0400 09/30 1600 09/30 0400 Intake Total 730 300 195 560 5996 1000 Output Total 853 335 1562 350 450 Balance -95 -25 -1205 10 1730 1000 Intake, IV 1600 800 Intake, Oral 730 300 720 360 580 200 Number 3 1 2 2 Bowel Movements Output, Urine 842 374 5040 350 450 Patient 207 lb 210 lb Weight Weight Bed scale Measurement Method Current Medications Sig/Ira Start time Last Medication Dose Route Stop Time Status Admin Acetaminophen 650 MG Q6P PRN 09/22 1600 AC 10/02 PO 0918 Amiodarone HCl 100 MG DAILY 09/23 1000 AC 10/02 PO 0916 Apixaban 2.5 MG BID 09/28 1000 AC 10/02 PO 0916 Benzocaine/Menthol 1 CELIA Q2P PRN 09/30 0100 AC 09/30 PO 0118 Calcium/Vitamin D 500 MG DAILY 09/22 1929 AC 10/02 PO 0917 Daptomycin 500 MG Q24H 09/28 1830 AC 10/01 Sodium Chloride 50 ML IV 2040 Epoetin Onofre 20,000 U ONCE A WEEK 09/29 1030 AC 09/29 OH 1139 Escitalopram Oxalate 10 MG DAILY 09/23 1000 AC 10/02 PO 0917 Filgrastim 300 MCG DAILY 09/28 1533 AC 10/02 SC 0920 Insulin Aspart 0 TIDAC/HS 09/28 1700 AC 10/02 SC 1300 Insulin Detemir 20 UNITS 8AM 09/30 0800 AC 10/02 SC 0835 Leucovorin Calcium 25 MG DAILY 09/28 1000 AC 10/02 PO 10/03 1001 0917 Lidocaine/Diphenhydr/ 5 ML Q4-6 PRN PRN 09/30 1530 AC 10/01 Alum/Mg/Simeth PO 2040 Metoprolol Succinate 12.5 MG DAILY 09/23 1000 AC 10/02 PO 0917 Tacrolimus 0.75 MG 0800 10/01 0800 AC 10/02 PO 0830 Tacrolimus 2 MG 0800 09/30 0800 AC 10/02 PO 0830 Laboratory Tests 10/02/17 1044: Anion Gap 12, Estimated GFR 46 L, BUN/Creatinine Ratio 20.7, Calcium Pending, Phosphorus Pending, Magnesium 1.7, CBC w Diff MAN DIFF ORDERED, RBC 3.15 L, MCV 83.0, MCH 27.4, MCHC 33.0, RDW 14.4, MPV 7.5, Gran % 45.0, Lymphocytes % 20.3 L , Monocytes % 29.3 H, Eosinophils % 4.8, Basophils % 0.6, Absolute Granulocytes 1.3 L, Segmented Neutrophils 21 L, Band Neutrophils 11 H, Absolute Lymphocytes 0.6 L, Lymphocytes 25, Monocytes 31 H, Absolute Monocytes 0.9 H, Eosinophils 5, Absolute Eosinophils 0.1, Basophils 5 H, Absolute Basophils 0, Metamyelocytes 1, Myelocytes 1 H, Nucleated RBCs 3 H, Platelet Estimate VERIFIED BY SMEAR, Polychromasia 1+, Poikilocytosis 1+, Anisocytosis 1+, Ovalocytes 1+ 10/02/17 0600: Tacrolimus Pending 10/01/17 2235: CBC w Diff MAN DIFF ORDERED, RBC 3.02 L, MCV 83.4, MCH 26.9 L, MCHC 32.3 L, RDW 14.2, MPV 7.7, Gran % 31.2 L, Lymphocytes % 23.9, Monocytes % 39.2 H, Eosinophils % 4.8, Basophils % 0.9, Absolute Granulocytes 0.8 L, Segmented Neutrophils 18 L, Band Neutrophils 9 H, Absolute Lymphocytes 0.6 L, Lymphocytes 20 L, Monocytes 40 H, Absolute Monocytes 1.0 H, Eosinophils 8 H, Absolute Eosinophils 0.1, Basophils 2, Absolute Basophils 0, Metamyelocytes 1, Myelocytes 2 H, Nucleated RBCs 11 H, Platelet Estimate ADEQUATE, Polychromasia 1+ 10/01/17 1900: CBC w Diff Cancelled, WBC Cancelled, RBC Cancelled, Hgb Cancelled, Hct Cancelled , MCV Cancelled, MCH Cancelled, MCHC Cancelled, RDW Cancelled, Plt Count Cancelled, MPV Cancelled 10/01/17 1220: CBC w Diff MAN DIFF ORDERED, RBC 2.70 L, MCV 82.5, MCH 27.1, MCHC 32.8 L, RDW 14.4, MPV 7.9, Gran % 25.8 L, Lymphocytes % 26.5, Monocytes % 39.2 H, Eosinophils % 6.6 H, Basophils % 1.9, Absolute Granulocytes 0.5 L, Segmented Neutrophils 12 L, Band Neutrophils 9 H, Absolute Lymphocytes 0.5 L, Lymphocytes 29, Monocytes 42 H, Absolute Monocytes 0.7 H, Eosinophils 4, Absolute Eosinophils 0.1, Basophils 4 H, Absolute Basophils 0, Nucleated RBCs 7 H, Platelet Estimate VERIFIED BY SMEAR, Polychromasia 1+, Tacrolimus Cancelled 10/01/17 0600: Anion Gap 11, Estimated GFR 43 L, BUN/Creatinine Ratio 20.6, Magnesium 1.7, CBC w Diff MAN DIFF ORDERED, RBC 2.74 L, MCV 82.9, MCH 27.1, MCHC 32.6 L, RDW 14.0 , MPV 8.3, Gran % 21.7 L, Lymphocytes % 29.8, Monocytes % 39.9 H, Eosinophils % 7.1 H, Basophils % 1.5, Absolute Granulocytes 0.5 L, Segmented Neutrophils 8 L, Band Neutrophils 6 H, Absolute Lymphocytes 0.6 L, Lymphocytes 32, Monocytes 39 H, Absolute Monocytes 0.8 H, Eosinophils 9 H, Absolute Eosinophils 0.1, Basophils 5 H, Absolute Basophils 0, Myelocytes 1 H, Nucleated RBCs 7 H, Platelet Estimate VERIFIED BY SMEAR, Polychromasia 1+, Tacrolimus 9.7 09/30/17 0647: Anion Gap 12, Estimated GFR 43 L, BUN/Creatinine Ratio 23.1, Calcium 7.3 L, Phosphorus 3.9, Magnesium 1.8, CBC w Diff MAN DIFF ORDERED, RBC 2.95 L, MCV 83.7, MCH 27.3, MCHC 32.7 L, RDW 14.0, MPV 7.9, Gran % 26.8 L, Lymphocytes % 26.1, Monocytes % 35.3 H, Eosinophils % 10.1 H, Basophils % 1.7, Absolute Granulocytes 0.4 L, Segmented Neutrophils 26 L, Band Neutrophils 6 H, Absolute Lymphocytes 0.4 L, Lymphocytes 26, Monocytes 30 H, Absolute Monocytes 0.6, Eosinophils 9 H, Absolute Eosinophils 0.2, Basophils 2, Absolute Basophils 0, Myelocytes 1 H, Nucleated RBCs 2 H, Platelet Estimate ADEQUATE, Hypochromic -Microcytic 2+, Poikilocytosis 2+, Anisocytosis 1+, Ovalocytes 1+, Tacrolimus 17.4 Microbiology 10/02 1020 STOOL: Clostridium difficile Toxin A & B - COMP 09/30 1200 NASOPHARYN: Influenza Virus A & B Rapid Smear - COMP 09/30 0840 BLOOD: Blood Culture - RES 09/30 929 BLOOD: Blood Culture - RES Microbiology 10/02 1020 STOOL: Clostridium difficile Toxin A & B - COMP 09/30 1200 NASOPHARYN: Influenza Virus A & B Rapid Smear - COMP 10/01 939 BLOOD: Blood Culture - RES 09/30 929 BLOOD: Blood Culture - RES Vital Signs Date Time Temp Pulse Resp B/P B/P Pulse O2 O2 Flow FiO2 Mean Ox Delivery Rate 10/02 1409 98.1 66 20 130/72 93 Room Air 10/02 0917 83 138/80 10/02 0916 83 138/80 10/02 0800 94 Room Air 10/02 0726 98.4 74 20 138/80 94 10/01 2306 99.5 70 19 154/68 92 10/01 2029 98.8 69 16 138/64 93 10/01 1458 98.7 64 20 148/68 92 Room Air
[2017-10-02 23:00] VITALS: BP 118/62
[2017-10-03 06:55] VITALS: BP 120/70
--- NOTE | 2017-10-03 07:12 | PN- Hematology ---
Subjective Subjective: Offers no specific complaints 12 point review of systems unchanged Objective Vital Signs and I&Os Vital Signs Date Time Temp Pulse Resp B/P B/P Pulse O2 O2 Flow FiO2 Mean Ox Delivery Rate 10/03 0655 98.4 64 20 120/70 90 Room Air 10/02 2300 97.7 85 20 118/62 94 10/02 1600 93 Room Air 10/02 1409 98.1 66 20 130/72 93 Room Air 10/02 0917 83 138/80 10/02 0916 83 138/80 10/02 0800 94 Room Air 10/02 0726 98.4 74 20 138/80 94 Intake & Output 10/03 0810/03 0000 10/02 1600 10/02 0800 10/02 0000 10/01 1600 Intake Total 300 700 580 150 300 480 Output Total 875 575 450 273 463 9920 Balance -575 125 130 - Intake, IV 80 Intake, Oral 300 620 580 150 300 480 Number 0 3 1 1 Bowel Movements Output, Urine 875 575 450 368 407 1854 Patient 207 lb Weight Gen.: in NAD ENT: Sclera anicteric Chest: Normal respiratory effort, clear breath sounds Cor: RRR, no extra sounds Abdomen: Soft, bowel sounds present, no tenderness, no rebound Extremities: Without clubbing, cyanosis, or asymmetric edema Neurology: Alert and oriented 3, Current Medications: Current Medications Sig/Ira Start time Last Medication Dose Route Stop Time Status Admin Acetaminophen 650 MG .STK-MED ONE 10/02 2046 DC PO 10/03 2047 Acetaminophen 650 MG .STK-MED ONE 10/02 858 DC PO 10/02 09 Acetaminophen 650 MG Q6P PRN 09/22 1600 AC 10/02 PO 204 Amiodarone HCl 100 MG DAILY 09/23 1000 AC 10/02 PO 0916 Apixaban 2.5 MG BID 09/28 1000 AC 10/02 PO 204 Benzocaine/Menthol 1 CELIA Q2P PRN 09/30 0100 AC 09/30 PO 0118 Calcium/Vitamin D 500 MG DAILY 09/22 1929 AC 10/02 PO 0917 Daptomycin 500 MG Q24H 09/28 1830 AC 10/02 Sodium Chloride 50 ML IV 1826 Epoetin Onofre 20,000 U ONCE A WEEK 09/29 1030 AC 09/29 PR 1139 Escitalopram Oxalate 10 MG DAILY 09/23 1000 AC 10/02 PO 0917 Filgrastim 300 MCG DAILY 09/28 1533 AC 10/02 SC 0920 Insulin Aspart 0 TIDAC/HS 09/28 1700 AC 10/02 SC 1708 Insulin Detemir 20 UNITS 8AM 09/30 0800 AC 10/02 SC 0835 Leucovorin Calcium 25 MG DAILY 09/28 1000 AC 10/02 PO 10/03 1001 0917 Lidocaine/Diphenhydr/ 5 ML Q4-6 PRN PRN 09/30 1530 AC 10/02 Alum/Mg/Simeth PO 2049 Magnesium Oxide 400 MG ONE ONE 10/02 1545 DC 10/02 PO 10/02 1546 1709 Metoprolol Succinate 12.5 MG DAILY 09/23 1000 AC 10/02 PO 0917 Tacrolimus 0.75 MG 10/01 0800 AC 10/02 PO 0830 Tacrolimus 2 MG 0800 09/30 0800 AC 10/02 PO 0830 Tramadol HCl 25 MG ONCE ONE 10/02 2100 DC 10/02 PO 10/02 210 2100 Results Last 24 Hours of Lab Results: Laboratory Tests 10/02 1044 Chemistry Sodium (137 - 145 mmol/L) 140 Potassium (3.5 - 5.1 mmol/L) 4.6 Chloride (98 - 107 mmol/L) 106 Carbon Dioxide (22 - 30 mmol/L) 23 Anion Gap (5 - 16) 12 BUN (9 - 20 mg/dL) 31 H Creatinine (0.7 - 1.2 mg/dL) 1.5 H Estimated GFR (>60 ml/min) 46 L BUN/Creatinine Ratio (7 - 25 %) 20.7 Calcium (8.4 - 10.2 mg/dL) 7.0 L Phosphorus (2.5 - 4.5 mg/dL) 3.0 Magnesium (1.6 - 2.3 mg/dL) 1.7 Hematology CBC w Diff MAN DIFF ORDERED WBC (4.8 - 10.8 /CUMM) 3.0 L RBC (4.70 - 6.10 /CUMM) 3.15 L Hgb (14.0 - 18.0 G/DL) 8.6 L Hct (42 - 52 %) 26.2 L MCV (80.0 - 94.0 FL) 83.0 MCH (27.0 - 31.0 PG) 27.4 MCHC (33.0 - 37.0 G/DL) 33.0 RDW (11.5 - 14.5 %) 14.4 Plt Count (130 - 400 /CUMM) 320 MPV (7.4 - 10.4 FL) 7.5 Gran % (42.2 - 75.2 %) 45.0 Lymphocytes % (20.5 - 51.1 %) 20.3 L Monocytes % (1.7 - 9.3 %) 29.3 H Eosinophils % (0 - 5 %) 4.8 Basophils % (0.0 - 2.0 %) 0.6 Absolute Granulocytes (1.4 - 6.5 /CUMM) 1.3 L Segmented Neutrophils (42.2 - 75.2 %) 21 L Band Neutrophils (0.0 - 5.0 %) 11 H Absolute Lymphocytes (1.2 - 3.4 /CUMM) 0.6 L Lymphocytes (20.5 - 51.1 %) 25 Monocytes (1.7 - 9.3 %) 31 H Absolute Monocytes (0.10 - 0.60 /CUMM) 0.9 H Eosinophils (0 - 5.0 %) 5 Absolute Eosinophils (0.0 - 0.7 /CUMM) 0.1 Basophils (0.0 - 2.0 %) 5 H Absolute Basophils (0.0 - 0.2 /CUMM) 0 Metamyelocytes (0.0 - 1.0 %) 1 Myelocytes (0 - 0 %) 1 H Nucleated RBCs (0.0 - 0.0 /100WBC) 3 H Platelet Estimate (ADEQUATE) VERIFIED BY SMEAR Polychromasia 1+ Poikilocytosis 1+ Anisocytosis 1+ Ovalocytes 1+ Assessment/Plan Hematology Assessment/Recommendations: 1. Hematologic status-improving White blood cell count, relatively stable hematocrit, left shift likely due to bone marrow recovery Recommend- Follow CBC Continue Neupogen
[2017-10-03 07:48] LABS: ABSOLUTE BASOPHIL COUNT 0 /CUMM (0.0-0.2); ABSOLUTE LYMPH COUNT 0.8 /CUMM (1.2-3.4); HEMATOCRIT 26.2 % (42-52); RED BLOOD CELL CT 3.12 /CUMM (4.70-6.10)
[2017-10-03 08:00] LABS: ABSOLUTE EOSINOPHIL COUNT 0.2 /CUMM (0.0-0.7); ABSOLUTE GRANULOCYTE CT 3.2 /CUMM (1.4-6.5); ABSOLUTE MONOCYTE COUNT 1.1 /CUMM (0.10-0.60); BASOPHIL % 0.3 % (0.0-2.0); EOSINOPHIL % 3.2 % (0-5); GRANULOCYTE % 60.1 % (42.2-75.2); MEAN CORPUSCULAR HGB 27.4 PG (27.0-31.0); MEAN CORPUSCULAR HGB CONC 32.6 G/DL (33.0-37.0); MEAN PLATELET VOLUME 7.9 FL (7.4-10.4); PLATELET COUNT 321 /CUMM (130-400); RBC DISTRIBUTION WIDTH 14.3 % (11.5-14.5)
[2017-10-03 08:05] LABS: WHITE BLOOD CELL COUNT 5.3 /CUMM (4.8-10.8)
--- NOTE | 2017-10-03 08:06 | PN- Housestaff ---
See Addendum Subjective Follow-up For: Osteomyelitis Positive blood cultures New left bundle branch block SHIRA in Renal transplant patient Neuropenia AMS Subjective: No acute events overnight. Still complaining of throat pain which continues to be the same. Patient would like rehab possibly to regain strength and help with abx administration. Review of Systems Constitutional: Reports: see HPI. Objective Last 24 Hrs of Vital Signs/I&O Vital Signs Date Time Temp Pulse Resp B/P B/P Pulse O2 O2 Flow FiO2 Mean Ox Delivery Rate 10/03 1459 Nasal 2.0L Cannula 10/03 1454 98.4 63 16 100/70 95 Room Air 10/03 0735 64 120/70 10/03 0734 64 120/70 10/03 0655 98.4 64 20 120/70 90 Room Air 10/02 2300 97.7 85 20 118/62 94 10/02 1600 93 Room Air Intake & Output 10/03 1600 10/03 0800 10/03 0000 Intake Total 500 300 700 Output Total 875 575 Balance 500 -575 125 Intake, IV 80 Intake, Oral 500 300 620 Number 1 0 Bowel Movements Output, Urine 875 575 Physical Exam General Appearance: Alert, Oriented X3, Cooperative, No Acute Distress Skin: R foot covered in wound vac, R arm hematoma 2/2 blood transfusion/ infiltrated IV Cardiovascular: Regular Rate, Normal S1, Normal S2 Lungs: Clear to Auscultation, Normal Air Movement Abdomen: Normal Bowel Sounds, Soft, No Tenderness Vascular: 2+ R radial, L AV fistula Current Medications: Current Medications Sig/Ira Start time Last Medication Dose Route Stop Time Status Admin Acetaminophen 650 MG .STK-MED ONE 10/02 2046 DC PO 10/03 2047 Acetaminophen 650 MG Q6P PRN 09/22 1600 AC 10/02 PO 2047 Amiodarone HCl 100 MG DAILY 09/23 1000 AC 10/03 PO 0734 Apixaban 2.5 MG BID 09/28 1000 AC 10/03 PO 0734 Benzocaine/Menthol 1 CELIA Q2P PRN 09/30 0100 AC 09/30 PO 0118 Calcium/Vitamin D 500 MG DAILY 09/22 1929 AC 10/03 PO 0735 Daptomycin 500 MG Q24H 09/28 1830 AC 10/02 Sodium Chloride 50 ML IV 1826 Epoetin Onofre 20,000 U ONCE A WEEK 09/29 1030 AC 09/29 NC 1139 Escitalopram Oxalate 10 MG DAILY 09/23 1000 AC 10/03 PO 0734 Filgrastim 300 MCG DAILY 09/28 1533 10/03 NC 0738 Insulin Aspart 0 TIDAC/HS 09/28 1700 10/03 NC 1157 Insulin Detemir 20 UNITS 8AM 09/30 0800 AC 10/03 SC 0734 Leucovorin Calcium 25 MG DAILY 09/28 1000 DC 10/03 PO 10/03 1001 0735 Lidocaine/Diphenhydr/ 5 ML Q4-6 PRN PRN 09/30 1530 10/02 Alum/Mg/Simeth PO 2049 Magnesium Oxide 400 MG ONE ONE 10/02 1545 DC 10/02 PO 10/02 1546 1709 Metoprolol Succinate 12.5 MG DAILY 09/23 1000 AC 10/03 PO 0735 Mycophenolate Mofetil 500 MG BID 10/04 1000 AC PO Omeprazole 20 MG DAILY AC 10/03 1334 AC PO Tacrolimus 0.75 MG 10/01 0800 AC 10/03 PO 0735 Tacrolimus 2 MG 0809/30 0800 AC 10/03 PO 0735 Tramadol HCl 25 MG ONCE ONE 10/02 2100 DC 10/02 PO 10/02 2101 2100 Last 24 Hrs of Lab/Joel Results Last 24 Hrs of Labs/Mics: Laboratory Tests 10/03/17 1400: ESR Westergren Pending 10/03/17 0658: Anion Gap 11, Estimated GFR 46 L, BUN/Creatinine Ratio 18.0, Magnesium 1.7, C- Reactive Prot, Quant > 9.0 H, CBC w Diff MAN DIFF ORDERED, RBC 3.12 L, MCV 84.0, MCH 27.4, MCHC 32.6 L, RDW 14.3, MPV 7.9, Gran % 60.1, Lymphocytes % 15.6 L, Monocytes % 20.8 H, Eosinophils % 3.2, Basophils % 0.3, Absolute Granulocytes 3.2, Segmented Neutrophils 50, Band Neutrophils 12 H, Absolute Lymphocytes 0.8 L, Lymphocytes 11 L, Monocytes 19 H, Absolute Monocytes 1.1 H, Eosinophils 2, Absolute Eosinophils 0.2, Absolute Basophils 0, Metamyelocytes 2 H, Myelocytes 4 H, Nucleated RBCs 1 H, Platelet Estimate ADEQUATE, Polychromasia 1+, Anisocytosis 1+, Ovalocytes FEW, Tacrolimus Pending Assessment/Plan Assessment: Patient is a 71-year-old male with a PMH significant for ESRD status post renal transplant on tacrolimus and CellCept, paroxysmal atrial fibrillation on Eliquis , HTN, HLD, CVA, DM, with recent admission to [facility] for osteomyelitis , status post amputation of the right and left third toes and left great toe who presented to the [facility] ED complaining of a several day history of malaise, nausea, vomiting, diarrhea, poor appetite found to have 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 Problem list #Sepsis 2/ to R foot osteomyelitils MAXIMUM TEMPERATURE 98.4 in 24 hours WBC 2.1 -> 5.3 CRP >9 ESR 72 -> 49 Blood cultures + for MRSA Surgical cultures + for MRSA Arterial Doppler: Decreased flow is noted within the right anterior tibial artery, lower part of the left popliteal, and posterior tibial, anterior tibial and dorsalis pedis arteries. TESS negative for vegetation but small PFO and atherosclerotic disease MRI + for foci most liekly embolic in origin and favoring bland > septic origin Baseline CPK 81 -f/u repeat foot cxr -Holding apixaban x2 days per IR. Plan for proline for IV abx outpatiient -f/u tacrolimus level daily -keep mg >2 - switched to daptomycin from [facility]. va'ed statin due to risk of rhabdo. #neurtopenia + anemia in the setting of ckd s/p renal transplant WBC 2.1 Perpherial flow cytometry suggesting BM biopsy for MDS -[place] neuoprogen and epo -Continue neutropenic diet and precautions -Follow-up hematology oncology recs #SHIRA on CKD History of renal transplant Creatinine 1.6 (baseline 1.2) Tacrolimus level 9.7 (10/01/17) -stopped fluids -restarting mycophenolate 500mg BID tomorrow -daily tacrolimus levels -Reduced tacrolimus 2.75 mg daily -Follow nephrology recommendations -Continue calcium/vitamin D #sore throat Rapid flu negative Strep throat culture negative CMV negative -f/u barium swallow -cont magic mouth wash -monitor vitals #continued loose stools C.diff negative x2 -f/u cdiff pcr -avoid loose stool causing meds such as magox -possibly due to mycophenolate #Altered mental status/hallucinations Sudden onset of hallucinatinations and AMS Head CT negative -much improved after stopping dicyclomine, morphine , burproprion #H/H drop / anemia H/H 7.3 -> 8.5 s/p 1 unit Folate 12.2, B12 >1000, ferritin >1760, iron 28 -Follow-up CBCs posttransfusion -finished folinic acid 25 mg X7 days -cont neupogen and epo -Continue to monitor #diabetes Maintain blood sugars less than 150 -cont endo recs #New onset left bundle branch block/mild elevated troponins Troponins 0.04, 0.18, 0.13 -Mild elevated troponins likely secondary to infection -Continue to follow cardiology recommendations #Chronic medical problems including PVD, paroxysmal A. fib, HTN, HLD, -Continue metoprolol, amiodarone, escitalopram, bupropion, apixaban, dicyclomine , Maalox, DVT prophylaxis: ALPS. holding eliquis per IR for proline CODE STATUS: Full code Problem List: 1. Neutropenia 2. Renal transplant rejection 3. Renal transplant recipient 4. Osteomyelitis Pain Ratin Pain Location: none Pain Goal: Pain 4 or less Pain Plan: pain pathway Tomorrow's Labs & Rationales: cbc bep tacro mg
--- NOTE | 2017-10-03 10:34 | PN- Pulmonary ---
Subjective HPI/Critical Care Issues: Fast asleep Events and data reviewed IMproving wbc count Objective Current Medications: Current Medications Sig/Ira Start time Last Medication Dose Route Stop Time Status Admin Acetaminophen 650 MG .STK-MED ONE 10/02 2046 DC PO 10/03 2047 Acetaminophen 650 MG Q6P PRN 09/22 1600 AC 10/02 PO 204 Amiodarone HCl 100 MG DAILY 09/23 1000 AC 10/03 PO 0734 Apixaban 2.5 MG BID 09/28 1000 AC 10/03 PO 0734 Benzocaine/Menthol 1 CELIA Q2P PRN 09/30 0100 AC 09/30 PO 0118 Calcium/Vitamin D 500 MG DAILY 09/22 1929 AC 10/03 PO 0735 Daptomycin 500 MG Q24H 09/28 1830 AC 10/02 Sodium Chloride 50 ML IV 1826 Epoetin Onofre 20,000 U ONCE A WEEK 09/29 1030 09/29 IA 1139 Escitalopram Oxalate 10 MG DAILY 09/23 1000 AC 10/03 PO 0734 Filgrastim 300 MCG DAILY 09/28 1533 AC 10/03 SC 0738 Insulin Aspart 0 TIDAC/HS 09/28 1700 AC 10/03 SC 0734 Insulin Detemir 20 UNITS 8AM 09/30 0800 AC 10/03 SC 0734 Leucovorin Calcium 25 MG DAILY 09/28 1000 DC 10/03 PO 10/03 1001 0735 Lidocaine/Diphenhydr/ 5 ML Q4-6 PRN PRN 09/30 1530 AC 10/02 Alum/Mg/Simeth PO 204 Magnesium Oxide 400 MG ONE ONE 10/02 1545 DC 10/02 PO 10/02 1546 1709 Metoprolol Succinate 12.5 MG DAILY 09/23 1000 AC 10/03 PO 0735 Tacrolimus 0.75 MG 10/01 0800 AC 10/03 PO 0735 Tacrolimus 2 MG 0809/30 0800 AC 10/03 PO 0735 Tramadol HCl 25 MG ONCE ONE 10/02 2100 DC 10/02 PO 10/02 2100 2100 Vital Signs & I&O Last 24 Hrs of Vitals and I&O: Vital Signs Date Time Temp Pulse Resp B/P B/P Pulse O2 O2 Flow FiO2 Mean Ox Delivery Rate 10/03 0735 64 120/70 10/03 0734 64 120/70 04/02 0655 98.4 64 20 120/70 90 Room Air 10/02 2300 97.7 85 20 118/62 94 / 1600 93 Room Air 10/02 1409 98.1 66 20 130/72 93 Room Air Intake & Output 10/03 1600 10/03 0800 04/ 0000 Intake Total 300 700 Output Total 875 575 Balance -575 125 Intake, IV 80 Intake, Oral 300 620 Number 0 Bowel Movements Output, Urine 875 575 Impression/Plan Impression/Plan Impression/Plan: Head: atraumatic, normal appearance Eyes: Bilateral: normal appearance, PERRL, EOMI. Ears, Nose, Throat: normal pharynx, normal ENT inspection, hearing grossly normal Neck: normal inspection, supple, full range of motion, no midline tenderness Respiratory: normal breath sounds, chest non-tender, no respiratory distress, quiet respiration, lungs clear Cardiovascular: normal peripheral pulses, irregularly irregular, norml femoral pulses equa Peripheral Pulses: 4+ carotid (R), 4+ carotid (L) Gastrointestinal: normal bowel sounds, soft, non-tender, no organomegaly Back: normal inspection, normal range of motion, no vertebral tenderness Extremities: no edema, pelvis stable,s/p debridement and in dressing Neurologic/Psych: no motor/sensory deficits, awake, alert, oriented x 2 Confused at times and easily redirectable , normal mood/affect, 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 Lymphatic: no anterior cervical fortunato avf intact IMPRESSION This is a gentleman with s/p renal transplant with infected toe with osteo s/p surg early september with amputation and sub delayed closure who had ecoli and staph was dcd recently off abx as his stump was clean and all his infected tissue had been excised now with * Infected foot with fever on admission MRSA sepsis- in a pt who is immunosupp (recent toe amputation with osteo, s/p complete debridement of osteo with toe amputation and wound closure on 09/09/17) now - MRSA infection and resolving sepsis, now s/p angioplasty of peroneal artery and wound redebridement of the foot. 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 No sig endocarditis noted in junior * Improving leukopenia and anemia - pt on immunosupp rx, was on cell cept which is held and Tacrolimus dose is reduced, normal flow. - now on daily neupogen 300 mcg, and CMV viral load neg * Sore throat now with some evidence of pharyngitis nil acute so far * REsolved delirium without Sig neuro deficit * MRI showing very small punctate lesions prob ateromatous small emboli, on anticoag, and statin * PT with Pafib in Sinus and sig atheromatous aorta, small pfo, - on eloquis * Prolonged qtc, previous low mag need to continue to monitor * REsolving SHIRA with CKD s/p renal transplant, creat now 1.6 (recent contrast use) * DM insulin requiring endo onboard * PVD, previous history of stoke, and previous toe amputation, now angioplasty * Previous secondary hyperparathyroid. Sig autonomic dysfunction was on fludocortisone * Pafib on eliquis (in sinus on amiodarone) (being dosed for renal function) * Depression and anxiety * Peripheral neuropathy * Mild ekg changes with slight elevated troponin stable REC * COnt abx * Check wbc daily * COnt current dose of tacrolimus * Start mycophenolate 500 bid starting tommorow * WOund vac * Daily tacrolimus level and will adjust dose subsequently * ID and Podiatry, vascular, Cardio,Endo and renal following * EKG monitoring per cardio * Cont metoprolol, statin, amio, antidepressant lexapro * Keep sugars less than 150
--- NOTE | 2017-10-03 11:16 | PN- Diabetes ---
Assessment/Plan Diabetes Assessment: Patient is a 71-year-old male with a PMH significant for ESRD status post renal transplant on tacrolimus and CellCept, paroxysmal atrial fibrillation on Eliquis , HTN, HLD, CVA, DM type 2, with recent admission to [facility] for osteomyelitis, status post amputation of the toes, was admitted for chronic right foot infection. He underwent angiogram, angioplasty of right peroneal artery, right foot procedure and wound vac placement on 09/27/2017. He had TESS done on 09/28/2017. Currently he is on Levemir 20 units daily, Novolog coverage before meals and Novolog coverage at bedtime. His FSGs were 210, 176, 127 and 180. Plan: continue the current insulin regimen for now; monitor FSGs. will follow. Subjective Subjective: He feels okay this morning. Objective Last 24 Hrs of Vital Signs/I&O Vital Signs Date Time Temp Pulse Resp B/P B/P Pulse O2 O2 Flow FiO2 Mean Ox Delivery Rate 10/03 0735 64 120/70 10/03 0734 64 120/70 10/03 0655 98.4 64 20 120/70 90 Room Air 10/02 2300 97.7 85 20 118/62 94 10/02 1600 93 Room Air 10/02 1409 98.1 66 20 130/72 93 Room Air Intake & Output 10/03 1600 10/03 0800 10/03 0000 Intake Total 300 700 Output Total 875 575 Balance -575 125 Intake, IV 80 Intake, Oral 300 620 Number 0 Bowel Movements Output, Urine 875 575 Findings Pertinent Lab/Joel Results: Laboratory Tests 10/03 0658 Chemistry Sodium (137 - 145 mmol/L) 141 Potassium (3.5 - 5.1 mmol/L) 4.8 Chloride (98 - 107 mmol/L) 106 Carbon Dioxide (22 - 30 mmol/L) 23 Anion Gap (5 - 16) 11 BUN (9 - 20 mg/dL) 27 H Creatinine (0.7 - 1.2 mg/dL) 1.5 H Estimated GFR (>60 ml/min) 46 L BUN/Creatinine Ratio (7 - 25 %) 18.0 Magnesium (1.6 - 2.3 mg/dL) 1.7 Hematology CBC w Diff MAN DIFF ORDERED WBC (4.8 - 10.8 /CUMM) 5.3 RBC (4.70 - 6.10 /CUMM) 3.12 L Hgb (14.0 - 18.0 G/DL) 8.5 L Hct (42 - 52 %) 26.2 L MCV (80.0 - 94.0 FL) 84.0 MCH (27.0 - 31.0 PG) 27.4 MCHC (33.0 - 37.0 G/DL) 32.6 L RDW (11.5 - 14.5 %) 14.3 Plt Count (130 - 400 /CUMM) 321 MPV (7.4 - 10.4 FL) 7.9 Gran % (42.2 - 75.2 %) 60.1 Lymphocytes % (20.5 - 51.1 %) 15.6 L Monocytes % (1.7 - 9.3 %) 20.8 H Eosinophils % (0 - 5 %) 3.2 Basophils % (0.0 - 2.0 %) 0.3 Absolute Granulocytes (1.4 - 6.5 /CUMM) 3.2 Segmented Neutrophils (42.2 - 75.2 %) 50 Band Neutrophils (0.0 - 5.0 %) 12 H Absolute Lymphocytes (1.2 - 3.4 /CUMM) 0.8 L Lymphocytes (20.5 - 51.1 %) 11 L Monocytes (1.7 - 9.3 %) 19 H Absolute Monocytes (0.10 - 0.60 /CUMM) 1.1 H Eosinophils (0 - 5.0 %) 2 Absolute Eosinophils (0.0 - 0.7 /CUMM) 0.2 Absolute Basophils (0.0 - 0.2 /CUMM) 0 Metamyelocytes (0.0 - 1.0 %) 2 H Myelocytes (0 - 0 %) 4 H Nucleated RBCs (0.0 - 0.0 /100WBC) 1 H Platelet Estimate (ADEQUATE) ADEQUATE Polychromasia 1+ Anisocytosis 1+ Ovalocytes FEW Toxicology Tacrolimus Pending
--- NOTE | 2017-10-03 12:11 | PN- Infect Dx ---
Subjective Subjective: Afebrile. He complains of odynophagia and loose stools Objective Last 24 Hrs of Vital Signs/I&O Vital Signs Date Time Temp Pulse Resp B/P B/P Pulse O2 O2 Flow FiO2 Mean Ox Delivery Rate 10/03 0735 64 120/70 10/03 0734 64 120/70 10/03 0655 98.4 64 20 120/70 90 Room Air 10/02 2300 97.7 85 20 118/62 94 10/02 1600 93 Room Air 10/02 1409 98.1 66 20 130/72 93 Room Air Intake & Output 10/03 1600 10/03 0800 10/03 0000 Intake Total 300 700 Output Total 875 575 Balance -575 125 Intake, IV 80 Intake, Oral 300 620 Number 0 Bowel Movements Output, Urine 875 575 Physical Exam Other Physical Findings: He appears comfortable in no acute distress Lungs are clear Heart regular rhythm with a 1/6 systolic ejection murmur Abdomen soft, nontender with positive bowel sounds Extremities right foot dressing intact Results Last 24 Hours of Lab Results: Laboratory Tests 10/03 657 Chemistry Sodium (137 - 145 mmol/L) 141 Potassium (3.5 - 5.1 mmol/L) 4.8 Chloride (98 - 107 mmol/L) 106 Carbon Dioxide (22 - 30 mmol/L) 23 Anion Gap (5 - 16) 11 BUN (9 - 20 mg/dL) 27 H Creatinine (0.7 - 1.2 mg/dL) 1.5 H Estimated GFR (>60 ml/min) 46 L BUN/Creatinine Ratio (7 - 25 %) 18.0 Magnesium (1.6 - 2.3 mg/dL) 1.7 Hematology CBC w Diff MAN DIFF ORDERED WBC (4.8 - 10.8 /CUMM) 5.3 RBC (4.70 - 6.10 /CUMM) 3.12 L Hgb (14.0 - 18.0 G/DL) 8.5 L Hct (42 - 52 %) 26.2 L MCV (80.0 - 94.0 FL) 84.0 MCH (27.0 - 31.0 PG) 27.4 MCHC (33.0 - 37.0 G/DL) 32.6 L RDW (11.5 - 14.5 %) 14.3 Plt Count (130 - 400 /CUMM) 321 MPV (7.4 - 10.4 FL) 7.9 Gran % (42.2 - 75.2 %) 60.1 Lymphocytes % (20.5 - 51.1 %) 15.6 L Monocytes % (1.7 - 9.3 %) 20.8 H Eosinophils % (0 - 5 %) 3.2 Basophils % (0.0 - 2.0 %) 0.3 Absolute Granulocytes (1.4 - 6.5 /CUMM) 3.2 Segmented Neutrophils (42.2 - 75.2 %) 50 Band Neutrophils (0.0 - 5.0 %) 12 H Absolute Lymphocytes (1.2 - 3.4 /CUMM) 0.8 L Lymphocytes (20.5 - 51.1 %) 11 L Monocytes (1.7 - 9.3 %) 19 H Absolute Monocytes (0.10 - 0.60 /CUMM) 1.1 H Eosinophils (0 - 5.0 %) 2 Absolute Eosinophils (0.0 - 0.7 /CUMM) 0.2 Absolute Basophils (0.0 - 0.2 /CUMM) 0 Metamyelocytes (0.0 - 1.0 %) 2 H Myelocytes (0 - 0 %) 4 H Nucleated RBCs (0.0 - 0.0 /100WBC) 1 H Platelet Estimate (ADEQUATE) ADEQUATE Polychromasia 1+ Anisocytosis 1+ Ovalocytes FEW Toxicology Tacrolimus Pending Last 24 Hours of Joel Results: Stool C. difficile October 02 negative Throat culture September 30 mixed tab Blood cultures 2 September 30 negative Assessment/Plan ID Impression: Overall improved, with his white blood cell count increasing and his creatinine decreasing since discontinuation of the Vancomycin 6 days ago, on Daptomycin, Day 11 of treatment for MRSA sepsis/osteomyelitis of the right foot status post revisional partial first ray resection, placement of a wound VAC and right peroneal artery angioplasty 6 days ago. Podiatry comments noted regarding persistent ischemic changes to the right foot, raising concern regarding ultimate healing. The head MRI findings are of unclear etiology with his TESS negative. He remains on Neupogen and off CellCept and these meds will need to be reevaluated over the next several days as his white blood cell count increases. Suggestion: 1. Would pursue placement of a Pro-Line 2. Vascular Surgery follow-up 3. Consider Barium swallow 4. Stool PCR for C. difficile 5. Further management of Neupogen per Hematology 6. Repeat ESR 7. Would obtain a postoperative x-ray of the right foot 8. Continue Daptomycin
[2017-10-03 14:54] VITALS: BP 100/70
--- NOTE | 2017-10-03 14:54 | PN- Nephrology ---
Assessment/Plan Nephrology Assessment: 1. CKD stage III status post DDKT 2014 2. SHIRA - significantly improved likely due to better hydration although contrast nephropathy may have played a role 3. 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 Necrotic wound/osteomyelitis right foot; s/p I&D, revision partial first ray resection 5. Episodic confusion - MRI --> ?possible multiple microemboli - much improved 6. Leukopenia/neutropenia -improved on Neupogen 7. Anemia - now on weekly Procrit 8. Odynophagia 9. Diarrhea with negative C. difficile Suggestion: 1. Agree with restarting MMF at the lower dose of 500 mg by mouth twice a day 2. For the moment, would continue current tacrolimus dose pending blood level results 3. Evaluation of painful swallowing i.e. barium swallow or EGD 4. Further evaluation or symptomatic treatment of of diarrhea 5. Encourage by mouth fluids Subjective Subjective: Generally feeling better and certainly no longer confused. His main complaints are painful swallowing and diarrhea. C. difficile negative. WBC has responded to Neupogen. Renal function has improved with creatinine down to 1.5 (baseline 1.2). CMV negative. Today's tacrolimus level pending - was down to 9.7 on . Would like to keep level around 10. Objective Vital Signs and I&Os Vital Signs Date Time Temp Pulse Resp B/P B/P Pulse O2 O2 Flow FiO2 Mean Ox Delivery Rate 10/03 0735 64 120/70 04/ 0734 64 120/70 / 0655 98.4 64 20 120/70 90 Room Air 10/02 2300 97.7 85 20 118/62 94 10/02 1600 93 Room Air Intake & Output 10/03 1600 10/03 0400 10/02 1600 10/02 0400 10/01 1600 10/01 0400 Intake Total 800 700 730 300 720 360 Output Total 875 575 965 877 6226 350 Balance -75 125 -95 -25 -1205 10 Intake, IV 80 Intake, Oral 800 620 730 300 720 360 Number 1 0 3 1 2 Bowel Movements Output, Urine 875 575 397 026 0253 350 Patient 207 lb 210 lb Weight Weight Bed scale Measurement Method Physical Exam: General: Well-developed white male in NAD Skin: No rash or jaundice; multiple senile keratoses; no petechiae or splinter hemorrhages HEENT: Conjunctivae pale, sclerae anicteric, mucous membranes moist Neck: Without masses or thyromegaly, no supraclavicular or cervical adenopathy Chest: Clear to P&A Heart: Regular rate and rhythm without S3 or rub Abdomen: Soft and nontender without palpable masses or organomegaly Extremities: Without cyanosis or edema; right foot dressing intact Neuro: Awake, alert and oriented, no focal findings, no asterixis or myoclonus Results Pertinent Lab Results: Laboratory Tests 10/03 10/03 1400 0658 Chemistry Sodium (137 - 145 mmol/L) 141 Potassium (3.5 - 5.1 mmol/L) 4.8 Chloride (98 - 107 mmol/L) 106 Carbon Dioxide (22 - 30 mmol/L) 23 Anion Gap (5 - 16) 11 BUN (9 - 20 mg/dL) 27 H Creatinine (0.7 - 1.2 mg/dL) 1.5 H Estimated GFR (>60 ml/min) 46 L BUN/Creatinine Ratio (7 - 25 %) 18.0 Magnesium (1.6 - 2.3 mg/dL) 1.7 C-Reactive Prot, Quant (<1.0 mg/dL) > 9.0 H Hematology CBC w Diff MAN DIFF ORDERED WBC (4.8 - 10.8 /CUMM) 5.3 RBC (4.70 - 6.10 /CUMM) 3.12 L Hgb (14.0 - 18.0 G/DL) 8.5 L Hct (42 - 52 %) 26.2 L MCV (80.0 - 94.0 FL) 84.0 MCH (27.0 - 31.0 PG) 27.4 MCHC (33.0 - 37.0 G/DL) 32.6 L RDW (11.5 - 14.5 %) 14.3 Plt Count (130 - 400 /CUMM) 321 MPV (7.4 - 10.4 FL) 7.9 Gran % (42.2 - 75.2 %) 60.1 Lymphocytes % (20.5 - 51.1 %) 15.6 L Monocytes % (1.7 - 9.3 %) 20.8 H Eosinophils % (0 - 5 %) 3.2 Basophils % (0.0 - 2.0 %) 0.3 Absolute Granulocytes (1.4 - 6.5 /CUMM) 3.2 Segmented Neutrophils (42.2 - 75.2 %) 50 Band Neutrophils (0.0 - 5.0 %) 12 H Absolute Lymphocytes (1.2 - 3.4 /CUMM) 0.8 L Lymphocytes (20.5 - 51.1 %) 11 L Monocytes (1.7 - 9.3 %) 19 H Absolute Monocytes (0.10 - 0.60 /CUMM) 1.1 H Eosinophils (0 - 5.0 %) 2 Absolute Eosinophils (0.0 - 0.7 /CUMM) 0.2 Absolute Basophils (0.0 - 0.2 /CUMM) 0 Metamyelocytes (0.0 - 1.0 %) 2 H Myelocytes (0 - 0 %) 4 H Nucleated RBCs (0.0 - 0.0 /100WBC) 1 H Platelet Estimate (ADEQUATE) ADEQUATE Polychromasia 1+ Anisocytosis 1+ Ovalocytes FEW ESR Westergren Pending Toxicology Tacrolimus Pending 10/02 10/02 10/02 1044 0939 0600 Chemistry Sodium (137 - 145 mmol/L) 140 Potassium (3.5 - 5.1 mmol/L) 4.6 Chloride (98 - 107 mmol/L) 106 Carbon Dioxide (22 - 30 mmol/L) 23 Anion Gap (5 - 16) 12 BUN (9 - 20 mg/dL) 31 H Creatinine (0.7 - 1.2 mg/dL) 1.5 H Estimated GFR (>60 ml/min) 46 L BUN/Creatinine Ratio (7 - 25 %) 20.7 Calcium (8.4 - 10.2 mg/dL) 7.0 L Phosphorus (2.5 - 4.5 mg/dL) 3.0 Magnesium (1.6 - 2.3 mg/dL) 1.7 Hematology CBC w Diff MAN DIFF ORDERED WBC (4.8 - 10.8 /CUMM) 3.0 L RBC (4.70 - 6.10 /CUMM) 3.15 L Hgb (14.0 - 18.0 G/DL) 8.6 L Hct (42 - 52 %) 26.2 L MCV (80.0 - 94.0 FL) 83.0 MCH (27.0 - 31.0 PG) 27.4 MCHC (33.0 - 37.0 G/DL) 33.0 RDW (11.5 - 14.5 %) 14.4 Plt Count (130 - 400 /CUMM) 320 MPV (7.4 - 10.4 FL) 7.5 Gran % (42.2 - 75.2 %) 45.0 Lymphocytes % (20.5 - 51.1 %) 20.3 L Monocytes % (1.7 - 9.3 %) 29.3 H Eosinophils % (0 - 5 %) 4.8 Basophils % (0.0 - 2.0 %) 0.6 Absolute Granulocytes (1.4 - 6.5 /CUMM) 1.3 L Segmented Neutrophils (42.2 - 75.2 %) 21 L Band Neutrophils (0.0 - 5.0 %) 11 H Absolute Lymphocytes (1.2 - 3.4 /CUMM) 0.6 L Lymphocytes (20.5 - 51.1 %) 25 Monocytes (1.7 - 9.3 %) 31 H Absolute Monocytes (0.10 - 0.60 /CUMM) 0.9 H Eosinophils (0 - 5.0 %) 5 Absolute Eosinophils (0.0 - 0.7 /CUMM) 0.1 Basophils (0.0 - 2.0 %) 5 H Absolute Basophils (0.0 - 0.2 /CUMM) 0 Metamyelocytes (0.0 - 1.0 %) 1 Myelocytes (0 - 0 %) 1 H Nucleated RBCs (0.0 - 0.0 /100WBC) 3 H Platelet Estimate (ADEQUATE) VERIFIED BY SMEAR Polychromasia 1+ Poikilocytosis 1+ Anisocytosis 1+ Ovalocytes 1+ Serology C. difficile Tox B Gene Pending Toxicology Tacrolimus Pending 10/01 10/01 5712 2021 Hematology CBC w Diff MAN DIFF ORDERED Cancelled WBC (4.8 - 10.8 /CUMM) 2.6 L Cancelled RBC (4.70 - 6.10 /CUMM) 3.02 L Cancelled Hgb (14.0 - 18.0 G/DL) 8.1 L Cancelled Hct (42 - 52 %) 25.1 L Cancelled MCV (80.0 - 94.0 FL) 83.4 Cancelled MCH (27.0 - 31.0 PG) 26.9 L Cancelled MCHC (33.0 - 37.0 G/DL) 32.3 L Cancelled RDW (11.5 - 14.5 %) 14.2 Cancelled Plt Count (130 - 400 /CUMM) 318 Cancelled MPV (7.4 - 10.4 FL) 7.7 Cancelled Gran % (42.2 - 75.2 %) 31.2 L Lymphocytes % (20.5 - 51.1 %) 23.9 Monocytes % (1.7 - 9.3 %) 39.2 H Eosinophils % (0 - 5 %) 4.8 Basophils % (0.0 - 2.0 %) 0.9 Absolute Granulocytes (1.4 - 6.5 /CUMM) 0.8 L Segmented Neutrophils (42.2 - 75.2 %) 18 L Band Neutrophils (0.0 - 5.0 %) 9 H Absolute Lymphocytes (1.2 - 3.4 /CUMM) 0.6 L Lymphocytes (20.5 - 51.1 %) 20 L Monocytes (1.7 - 9.3 %) 40 H Absolute Monocytes (0.10 - 0.60 /CUMM) 1.0 H Eosinophils (0 - 5.0 %) 8 H Absolute Eosinophils (0.0 - 0.7 /CUMM) 0.1 Basophils (0.0 - 2.0 %) 2 Absolute Basophils (0.0 - 0.2 /CUMM) 0 Metamyelocytes (0.0 - 1.0 %) 1 Myelocytes (0 - 0 %) 2 H Nucleated RBCs (0.0 - 0.0 /100WBC) 11 H Platelet Estimate (ADEQUATE) ADEQUATE Polychromasia 110/01 1220 Hematology CBC w Diff MAN DIFF ORDERED WBC (4.8 - 10.8 /CUMM) 2.1 L RBC (4.70 - 6.10 /CUMM) 2.70 L Hgb (14.0 - 18.0 G/DL) 7.3 *L Hct (42 - 52 %) 22.3 L MCV (80.0 - 94.0 FL) 82.5 MCH (27.0 - 31.0 PG) 27.1 MCHC (33.0 - 37.0 G/DL) 32.8 L RDW (11.5 - 14.5 %) 14.4 Plt Count (130 - 400 /CUMM) 305 MPV (7.4 - 10.4 FL) 7.9 Gran % (42.2 - 75.2 %) 25.8 L Lymphocytes % (20.5 - 51.1 %) 26.5 Monocytes % (1.7 - 9.3 %) 39.2 H Eosinophils % (0 - 5 %) 6.6 H Basophils % (0.0 - 2.0 %) 1.9 Absolute Granulocytes (1.4 - 6.5 /CUMM) 0.5 L Segmented Neutrophils (42.2 - 75.2 %) 12 L Band Neutrophils (0.0 - 5.0 %) 9 H Absolute Lymphocytes (1.2 - 3.4 /CUMM) 0.5 L Lymphocytes (20.5 - 51.1 %) 29 Monocytes (1.7 - 9.3 %) 42 H Absolute Monocytes (0.10 - 0.60 /CUMM) 0.7 H Eosinophils (0 - 5.0 %) 4 Absolute Eosinophils (0.0 - 0.7 /CUMM) 0.1 Basophils (0.0 - 2.0 %) 4 H Absolute Basophils (0.0 - 0.2 /CUMM) 0 Nucleated RBCs (0.0 - 0.0 /100WBC) 7 H Platelet Estimate (ADEQUATE) VERIFIED BY SMEAR Polychromasia 1+ Toxicology Tacrolimus Cancelled 10/01 0600 Chemistry Sodium (137 - 145 mmol/L) 141 Potassium (3.5 - 5.1 mmol/L) 4.8 Chloride (98 - 107 mmol/L) 108 H Carbon Dioxide (22 - 30 mmol/L) 22 Anion Gap (5 - 16) 11 BUN (9 - 20 mg/dL) 33 H Creatinine (0.7 - 1.2 mg/dL) 1.6 H Estimated GFR (>60 ml/min) 43 L BUN/Creatinine Ratio (7 - 25 %) 20.6 Magnesium (1.6 - 2.3 mg/dL) 1.7 Hematology CBC w Diff MAN DIFF ORDERED WBC (4.8 - 10.8 /CUMM) 2.0 L RBC (4.70 - 6.10 /CUMM) 2.74 L Hgb (14.0 - 18.0 G/DL) 7.4 *L Hct (42 - 52 %) 22.7 L MCV (80.0 - 94.0 FL) 82.9 MCH (27.0 - 31.0 PG) 27.1 MCHC (33.0 - 37.0 G/DL) 32.6 L RDW (11.5 - 14.5 %) 14.0 Plt Count (130 - 400 /CUMM) 318 MPV (7.4 - 10.4 FL) 8.3 Gran % (42.2 - 75.2 %) 21.7 L Lymphocytes % (20.5 - 51.1 %) 29.8 Monocytes % (1.7 - 9.3 %) 39.9 H Eosinophils % (0 - 5 %) 7.1 H Basophils % (0.0 - 2.0 %) 1.5 Absolute Granulocytes (1.4 - 6.5 /CUMM) 0.5 L Segmented Neutrophils (42.2 - 75.2 %) 8 L Band Neutrophils (0.0 - 5.0 %) 6 H Absolute Lymphocytes (1.2 - 3.4 /CUMM) 0.6 L Lymphocytes (20.5 - 51.1 %) 32 Monocytes (1.7 - 9.3 %) 39 H Absolute Monocytes (0.10 - 0.60 /CUMM) 0.8 H Eosinophils (0 - 5.0 %) 9 H Absolute Eosinophils (0.0 - 0.7 /CUMM) 0.1 Basophils (0.0 - 2.0 %) 5 H Absolute Basophils (0.0 - 0.2 /CUMM) 0 Myelocytes (0 - 0 %) 1 H Nucleated RBCs (0.0 - 0.0 /100WBC) 7 H Platelet Estimate (ADEQUATE) VERIFIED BY SMEAR Polychromasia 1+ Toxicology Tacrolimus (() mcg/L) 9.7
--- NOTE | 2017-10-03 18:16 | RADIOLOGY REPORT ---
EXAMINATION: FLUOROSCOPY ESOPHAGRAM WITH AIR CLINICAL INFORMATION: With benign aphasia. Infectious causes are negative so far. Any pathology, stricture versus tumor growth. COMPARISON: CT scan of the chest dated 11/28/2015. TECHNIQUE: An air contrast barium swallow was performed with the patient in the upright and supine positions. Multiple (4) spot films and 4 cine fluoroscopy runs were acquired. A barium tablet was also given. FINDINGS: The oropharyngeal phase of swallowing is normal with no laryngeal or nasopharyngeal aspiration seen. Vallecula and piriform sinuses bilaterally are symmetric again demonstrate mild pooling of contrast. Abnormal esophageal motility is seen with premature breakup of the primary wave of peristalsis and intermittent mild tertiary contractions in the mid and distal esophagus. There is irregularity of the proximal esophageal lumen in the upper chest and slight narrowing of the esophageal lumen noted. No obstruction to the antegrade flow of a barium tablet at this location is seen. Findings may be related to focal esophagitis. No ulceration or definite mass is seen. There is a circumferential stricture at the GE junction with transient obstruction to the antegrade flow of barium tablet at this level. The GE junction is located below the level of the diaphragm. No GE reflux is seen. FLUOROSCOPY TIME: 1 minute 34 seconds. IMPRESSION: 1. Esophageal irregularity is seen in the proximal thoracic esophagus, raising the suspicion of subtle esophagitis in this location. Endoscopic correlation can be considered. 2. 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 3. Mild esophageal dysmotility.
--- NOTE | 2017-10-03 18:22 | RADIOLOGY REPORT ---
EXAMINATION: XR FOOT, RIGHT CLINICAL INFORMATION: Drainage through wound VAC. Post surgery incision and drainage evaluation. Day #6. COMPARISON: MRI scan of the right foot dated 09/05/2017. Right toe films dated 05/31/2015. TECHNIQUE: Frontal and lateral views of the right foot. FINDINGS: The patient is status post transmetatarsal amputation of the first digit. Resection margin of the remaining first metatarsal bone appears unremarkable. Overlying soft tissues appear grossly unremarkable except for extensive vascular calcifications. Wound VAC is seen in place. Previously seen old postsurgical changes with amputation of the entire third digit and partial amputation of the distal aspect of the fourth proximal phalanx again noted, unchanged. No significant ankle joint effusion is seen. Mild degenerative changes are noted in the intertarsal joints. IMPRESSION: 1. Expected postsurgical changes status post transmetatarsal amputation of the first digit. 2. No change in postsurgical changes involving the amputation of the third digit and the metatarsal head of the proximal phalanx of the fourth digit.
[2017-10-03 22:16] VITALS: BP 130/70
--- NOTE | 2017-10-04 06:43 | PN- Hematology ---
Subjective Subjective: No complaints, feels well Objective Vital Signs and I&Os Vital Signs Date Time Temp Pulse Resp B/P B/P Pulse O2 O2 Flow FiO2 Mean Ox Delivery Rate 10/03 2216 98.3 67 24 130/70 95 / 1459 Nasal 2.0L Cannula 10/03 1454 98.4 63 16 100/70 95 Room Air 10/03 0735 64 120/70 10/03 0734 64 120/70 10/03 0655 98.4 64 20 120/70 90 Room Air Intake & Output 10/04 0810/04 0000 10/03 1600 10/03 0800 10/03 0000 10/02 1600 Intake Total 240 300 500 300 700 580 Output Total 200 300 875 575 450 Balance 40 0 500 -575 125 130 Intake, IV 80 Intake, Oral 240 300 500 300 620 580 Number 1 0 3 Bowel Movements Output, Urine 200 300 875 575 450 Patient 204 lb Weight Gen.: in NAD ENT: Sclera anicteric Chest: Normal respiratory effort, clear breath sounds Cor: RRR, no extra sounds Abdomen: Soft, bowel sounds present, no tenderness, no rebound Extremities: Without clubbing, cyanosis, or asymmetric edema Neurology: Alert and oriented 3, no gross deficit Current Medications: Current Medications Sig/Ira Start time Last Medication Dose Route Stop Time Status Admin Acetaminophen 650 MG Q6P PRN 09/22 1600 AC 10/02 PO 2048 Amiodarone HCl 100 MG DAILY 09/23 1000 AC 10/03 PO 0734 Apixaban 2.5 MG BID 09/28 1000 DC 10/03 PO 0734 Benzocaine/Menthol 1 CELIA Q2P PRN 09/30 0100 AC 09/30 PO 0118 Calcium/Vitamin D 500 MG DAILY 09/22 1929 AC 10/03 PO 0735 Daptomycin 500 MG Q24H 09/28 1830 AC 10/03 Sodium Chloride 50 ML IV 1908 Epoetin Onofre 20,000 U ONCE A WEEK 09/29 1030 AC 09/29 SC 1139 Escitalopram Oxalate 10 MG DAILY 09/23 1000 AC 10/03 PO 0734 Filgrastim 300 MCG DAILY 09/28 1533 AC 10/03 SC 0738 Insulin Aspart 0 TIDAC/HS 09/28 1700 AC 10/03 SC 1157 Insulin Detemir 20 UNITS 8AM 09/30 0800 AC 10/03 SC 0734 Leucovorin Calcium 25 MG DAILY 09/28 1000 DC 10/03 PO 10/03 1001 0735 Lidocaine/Diphenhydr/ 5 ML Q4-6 PRN PRN 09/30 1530 AC 10/03 Alum/Mg/Simeth PO 2130 Magnesium Sulfate 1 GM ONCE ONE 10/03 1545 DC 10/03 Dextrose/Water 100 ML IV 10/03 1944 1552 Metoprolol Succinate 12.5 MG DAILY 09/23 1000 AC 10/03 PO 0735 Mycophenolate Mofetil 500 MG BID 10/04 1000 AC PO Omeprazole 20 MG DAILY AC 10/03 1334 AC 10/04 PO 0555 Tacrolimus 0.75 MG 10/01 0800 AC 10/03 PO 0735 Tacrolimus 2 MG 09/30 0800 AC 10/03 PO 0735 Tramadol HCl 25 MG ONCE ONE 10/03 2315 DC 10/03 PO 10/03 2316 2309 Results Last 24 Hours of Lab Results: Laboratory Tests 10/04 10/03 10/03 0630 1400 0658 Chemistry Sodium (137 - 145 mmol/L) Pending 141 Potassium (3.5 - 5.1 mmol/L) Pending 4.8 Chloride (98 - 107 mmol/L) Pending 106 Carbon Dioxide (22 - 30 mmol/L) Pending 23 Anion Gap (5 - 16) Pending 11 BUN (9 - 20 mg/dL) Pending 27 H Creatinine (0.7 - 1.2 mg/dL) Pending 1.5 H Estimated GFR (>60 ml/min) 46 L BUN/Creatinine Ratio (7 - 25 %) Pending 18.0 Magnesium (1.6 - 2.3 mg/dL) Pending 1.7 C-Reactive Prot, Quant (<1.0 mg/dL) > 9.0 H Hematology CBC w Diff Pending MAN DIFF ORDERED WBC (4.8 - 10.8 /CUMM) Pending 5.3 RBC (4.70 - 6.10 /CUMM) Pending 3.12 L Hgb (14.0 - 18.0 G/DL) Pending 8.5 L Hct (42 - 52 %) Pending 26.2 L MCV (80.0 - 94.0 FL) Pending 84.0 MCH (27.0 - 31.0 PG) Pending 27.4 MCHC (33.0 - 37.0 G/DL) Pending 32.6 L RDW (11.5 - 14.5 %) Pending 14.3 Plt Count (130 - 400 /CUMM) Pending 321 MPV (7.4 - 10.4 FL) Pending 7.9 Gran % (42.2 - 75.2 %) 60.1 Lymphocytes % (20.5 - 51.1 %) 15.6 L Monocytes % (1.7 - 9.3 %) 20.8 H Eosinophils % (0 - 5 %) 3.2 Basophils % (0.0 - 2.0 %) 0.3 Absolute Granulocytes (1.4 - 6.5 /CUMM) 3.2 Segmented Neutrophils (42.2 - 75.2 %) 50 Band Neutrophils (0.0 - 5.0 %) 12 H Absolute Lymphocytes (1.2 - 3.4 /CUMM) 0.8 L Lymphocytes (20.5 - 51.1 %) 11 L Monocytes (1.7 - 9.3 %) 19 H Absolute Monocytes (0.10 - 0.60 /CUMM) 1.1 H Eosinophils (0 - 5.0 %) 2 Absolute Eosinophils (0.0 - 0.7 /CUMM) 0.2 Absolute Basophils (0.0 - 0.2 /CUMM) 0 Metamyelocytes (0.0 - 1.0 %) 2 H Myelocytes (0 - 0 %) 4 H Nucleated RBCs (0.0 - 0.0 /100WBC) 1 H Platelet Estimate (ADEQUATE) ADEQUATE Polychromasia 1+ Anisocytosis 1+ Ovalocytes FEW ESR Westergren (0 - 10 MM) 49 H Toxicology Tacrolimus Pending Pending Assessment/Plan Hematology Assessment/Recommendations: Hematologic status-improved white blood count with minimal left shift Recommend- If the white blood count today's in a similar range-discontinue Neupogen Follow CBC
[2017-10-04 06:54] VITALS: BP 132/70
--- NOTE | 2017-10-04 07:50 | PN- Housestaff ---
Subjective Follow-up For: Osteomyelitis Positive blood cultures New left bundle branch block SHIRA in Renal transplant patient Neuropenia AMS Tele-Events Since Last Visit: NSR 60-65 Subjective: No acute events overnight. States throat pain is the same. States he is having back pain due to the bed as the springs are broken. He currently has a new bed this AM. Review of Systems Constitutional: Reports: see HPI. Objective Last 24 Hrs of Vital Signs/I&O Vital Signs Date Time Temp Pulse Resp B/P B/P Pulse O2 O2 Flow FiO2 Mean Ox Delivery Rate 10/04 0755 69 132/70 04/03 0755 69 132/70 10/04 0654 97.8 69 20 132/70 97 Room Air 10/03 2216 98.3 67 24 130/70 95 / 1459 Nasal 2.0L Cannula 10/03 1454 98.4 63 16 100/70 95 Room Air Intake & Output 10/04 1600 10/04 0800 04/ 0000 Intake Total 240 300 Output Total 650 300 Balance -410 0 Intake, Oral 240 300 Output, Urine 650 300 Patient 204 lb Weight Physical Exam General Appearance: Alert, Oriented X3, Cooperative, No Acute Distress Skin: somewhat improved R arm hematoma/bruising Cardiovascular: Regular Rate, Normal S1, Normal S2 Lungs: Clear to Auscultation, Normal Air Movement Abdomen: Normal Bowel Sounds, Soft, No Tenderness Extremities: 2+ r radial, L AV fistula pulses, R foot with wound vac Assessment/Plan Assessment: Patient is a 71-year-old male with a PMH significant for ESRD status post renal transplant on tacrolimus and CellCept, paroxysmal atrial fibrillation on Eliquis , HTN, HLD, CVA, DM, with recent admission to [facility] for osteomyelitis , status post amputation of the right and left third toes and left great toe who presented to the [facility] ED complaining of a several day history of malaise, nausea, vomiting, diarrhea, poor appetite found to have 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 Problem list #Sepsis 2/2 to R foot osteomyelitils MAXIMUM TEMPERATURE 98.4 in 24 hours WBC 2.1 -> 5.3 -> 8.0 CRP >9 ESR 72 -> 49 Blood cultures + for MRSA Surgical cultures + for MRSA Arterial Doppler: Decreased flow is noted within the right anterior tibial artery, lower part of the left popliteal, and posterior tibial, anterior tibial and dorsalis pedis arteries. TESS negative for vegetation but small PFO and atherosclerotic disease MRI + for foci most liekly embolic in origin and favoring bland > septic origin Baseline CPK 81 -f/u repeat foot cxr -Holding apixaban x2 days per IR. Plan for proline for IV abx outpatiient -f/u tacrolimus level daily -keep mg >2 - switched to daptomycin from [facility]. ia'ed statin due to risk of rhabdo. #neurtopenia + anemia in the setting of ckd s/p renal transplant WBC 1.2 -> 8.0 Perpherial flow cytometry suggesting BM biopsy for MDS -stop neupogen as WBC has improved -Continue neutropenic diet and precautions -Follow-up hematology oncology recs #SHIRA on CKD, History of renal transplantation Creatinine 1.4 (baseline 1.2) Tacrolimus level 9.7 (10/01/17) -stopped fluids -start mycophenolate 500mg BID today -daily tacrolimus levels -Reduced tacrolimus 2.75 mg daily -Follow nephrology recommendations -Continue calcium/vitamin D #sore throat Rapid flu negative Strep throat culture negative CMV negative Barium swallow: 1. Esophageal irregularity,raising the suspicion of subtle esophagitis 2. Circumferential stricture at the GE junction, causing transient obstruction t 3. Mild esophageal dysmotility. -f/u GI consult -f/u barium swallow -cont magic mouth wash -monitor vitals #continued loose stools C.diff negative x2 -f/u cdiff pcr -avoid loose stool causing meds such as magox -possibly due to mycophenolate #Altered mental status/hallucinations Sudden onset of hallucinatinations and AMS Head CT negative -much improved after stopping dicyclomine, morphine , burproprion #H/H drop / anemia H/H 7.3 -> 8.5 s/p 1 unit. Folate 12.2, B12 >1000, ferritin >1760, iron 28 -monitor cbc daily -finished folinic acid 25 mg X7 days -cont epo -Continue to monitor #diabetes Maintain blood sugars less than 150 -cont endo recs #New onset left bundle branch block/mild elevated troponins Troponins 0.04, 0.18, 0.13 -Mild elevated troponins likely secondary to infection -Continue to follow cardiology recommendations #Chronic medical problems including PVD, paroxysmal A. fib, HTN, HLD, -Continue metoprolol, amiodarone, escitalopram, bupropion, apixaban, dicyclomine , Maalox, DVT prophylaxis: Heparin drip without bolus. holding eliquis per IR for proline CODE STATUS: Full code Problem List: 1. Loose stools 2. Sore throat 3. Renal transplant rejection 4. SHIRA (acute kidney injury) 5. Osteomyelitis Pain Ratin Pain Location: back Pain Goal: Pain 4 or less Pain Plan: pain pathway Tomorrow's Labs & Rationales: cbc bep mg tacrolimus
[2017-10-04 08:24] LABS: ABSOLUTE BASOPHIL COUNT 0 /CUMM (0.0-0.2); ABSOLUTE EOSINOPHIL COUNT 0.2 /CUMM (0.0-0.7); ABSOLUTE GRANULOCYTE CT 5.9 /CUMM (1.4-6.5)
--- NOTE | 2017-10-04 08:38 | PN- Diabetes ---
Assessment/Plan Diabetes Assessment: Patient is a 71-year-old male with a PMH significant for ESRD status post renal transplant on tacrolimus and CellCept, paroxysmal atrial fibrillation on Eliquis , HTN, HLD, CVA, DM type 2, with recent admission to [facility] for osteomyelitis, status post amputation of the toes, was admitted for chronic right foot infection. He underwent angiogram, angioplasty of right peroneal artery, right foot procedure and wound vac placement on 09/27/2017. He had TESS done on 09/28/2017. Currently he is on Levemir 20 units daily, Novolog coverage before meals and Novolog coverage at bedtime. His FSGs were 180, 176, 63, 165 and 152. Plan: 1. continue Levemir 20 units daily; 2. adjust Novolog coverage before meals; detail see the inpatient DM order; 3. monitor FSGs. will follow. Inpatient Diabetes Orders Before Each Meal: Bolus Insulin: Novolog < 80 mg/dl: no coverage 80-100 mg/dl: 2 units 101-120 mg/dl: 2 units 121-150 mg/dl: 2 units 151-200 mg/dl: 3 units 201-250 mg/dl: 4 units 251-300 mg/dl: 5 units 301-350 mg/dl: 7 units 351-400 mg/dl: 9 units > 400 mg/dl: 10 units Subjective Subjective: He feels okay. Objective Last 24 Hrs of Vital Signs/I&O Vital Signs Date Time Temp Pulse Resp B/P B/P Pulse O2 O2 Flow FiO2 Mean Ox Delivery Rate 10/04 0755 69 132/70 10/04 0755 69 132/70 10/04 0654 97.8 69 20 132/70 97 Room Air 10/03 2216 98.3 67 24 130/70 95 10/03 1459 Nasal 2.0L Cannula 10/03 1454 98.4 63 16 100/70 95 Room Air Intake & Output 10/04 1600 10/04 0800 04 0000 Intake Total 240 300 Output Total 650 300 Balance -410 0 Intake, Oral 240 300 Output, Urine 650 300 Patient 204 lb Weight Findings Pertinent Lab/Joel Results: Laboratory Tests 10/04 10/03 0630 1400 Chemistry Sodium (137 - 145 mmol/L) 141 Potassium (3.5 - 5.1 mmol/L) 4.5 Chloride (98 - 107 mmol/L) 107 Carbon Dioxide (22 - 30 mmol/L) 25 Anion Gap (5 - 16) 10 BUN (9 - 20 mg/dL) 24 H Creatinine (0.7 - 1.2 mg/dL) 1.4 H Estimated GFR (>60 ml/min) 50 L BUN/Creatinine Ratio (7 - 25 %) 17.1 Magnesium (1.6 - 2.3 mg/dL) 1.9 Hematology CBC w Diff Pending WBC Pending RBC Pending Hgb Pending Hct Pending MCV Pending MCH Pending MCHC Pending RDW Pending Plt Count Pending MPV Pending ESR Westergren (0 - 10 MM) 49 H Toxicology Tacrolimus Pending
[2017-10-04 08:57] LABS: ABSOLUTE LYMPH COUNT 0.9 /CUMM (1.2-3.4); ABSOLUTE MONOCYTE COUNT 0.9 /CUMM (0.10-0.60); BASOPHIL % 0.4 % (0.0-2.0); GRANULOCYTE % 74.2 % (42.2-75.2); MEAN CORPUSCULAR HGB 27.4 PG (27.0-31.0); MEAN CORPUSCULAR HGB CONC 32.6 G/DL (33.0-37.0); PLATELET COUNT 318 /CUMM (130-400); RBC DISTRIBUTION WIDTH 14.3 % (11.5-14.5); RED BLOOD CELL CT 3.21 /CUMM (4.70-6.10)
--- NOTE | 2017-10-04 09:47 | PN- Pulmonary ---
Subjective HPI/Critical Care Issues: Feels better DOing well Stable Dysphagia slowly improving WBC better Esophagogram results noted Objective Current Medications: Current Medications Sig/Ira Start time Last Medication Dose Route Stop Time Status Admin Acetaminophen 650 MG Q6P PRN 09/22 1600 AC 10/02 PO 2048 Amiodarone HCl 100 MG DAILY 09/23 1000 AC 10/04 PO 0755 Apixaban 2.5 MG BID 09/28 1000 DC 10/03 PO 0734 Benzocaine/Menthol 1 CELIA Q2P PRN 09/30 0100 AC 09/30 PO 0118 Calcium/Vitamin D 500 MG DAILY 09/22 1929 AC 10/04 PO 0755 Daptomycin 500 MG Q24H 09/28 1830 AC 10/03 Sodium Chloride 50 ML IV 1908 Epoetin Onofre 20,000 U ONCE A WEEK 09/29 1030 AC 09/29 AR 1139 Escitalopram Oxalate 10 MG DAILY 09/23 1000 AC 10/04 PO 0755 Filgrastim 300 MCG DAILY 09/28 1533 AC 10/04 SC 0754 Insulin Aspart 0 TIDAC/HS 09/28 1700 AC 10/04 SC 0810 Insulin Detemir 20 UNITS 8AM 09/30 0800 AC 10/04 SC 0756 Leucovorin Calcium 25 MG DAILY 09/28 1000 DC 10/03 PO 10/03 1001 0735 Lidocaine/Diphenhydr/ 5 ML Q4-6 PRN PRN 09/30 1530 AC 10/03 Alum/Mg/Simeth PO 2130 Magnesium Sulfate 1 GM ONCE ONE 10/03 1545 DC 10/03 Dextrose/Water 100 ML IV 10/03 1944 1552 Metoprolol Succinate 12.5 MG DAILY 09/23 1000 AC 10/04 PO 0755 Mycophenolate Mofetil 500 MG BID 10/04 1000 AC 10/04 PO 0755 Omeprazole 20 MG DAILY AC 10/03 1334 AC 10/04 PO 0555 Tacrolimus 0.75 MG 10/01 0800 AC 10/04 PO 0755 Tacrolimus 2 MG 0809/30 0800 AC 10/04 PO 0755 Tramadol HCl 25 MG ONCE ONE 10/03 2315 DC 10/03 PO 10/03 2316 2309 Vital Signs & I&O Last 24 Hrs of Vitals and I&O: Vital Signs Date Time Temp Pulse Resp B/P B/P Pulse O2 O2 Flow FiO2 Mean Ox Delivery Rate 10/04 0755 69 132/70 04/ 0755 69 132/70 / 0654 97.8 69 20 132/70 97 Room Air 10/03 2216 98.3 67 24 130/70 95 10/03 1459 Nasal 2.0L Cannula 10/03 1454 98.4 63 16 100/70 95 Room Air Intake & Output 10/04 1600 10/04 0800 04/ 0000 Intake Total 240 300 Output Total 650 300 Balance -410 0 Intake, Oral 240 300 Output, Urine 650 300 Patient 204 lb Weight Impression/Plan Impression/Plan Impression/Plan: Head: atraumatic, normal appearance Eyes: Bilateral: normal appearance, PERRL, EOMI. Ears, Nose, Throat: normal pharynx, normal ENT inspection, hearing grossly normal Neck: normal inspection, supple, full range of motion, no midline tenderness Respiratory: normal breath sounds, chest non-tender, no respiratory distress, quiet respiration, lungs clear Cardiovascular: normal peripheral pulses, irregularly irregular, norml femoral pulses equa Peripheral Pulses: 4+ carotid (R), 4+ carotid (L) Gastrointestinal: normal bowel sounds, soft, non-tender, no organomegaly Back: normal inspection, normal range of motion, no vertebral tenderness Extremities: no edema, pelvis stable,s/p debridement and in dressing Neurologic/Psych: no motor/sensory deficits, awake, alert, oriented x 2 Confused at times and easily redirectable , normal mood/affect, eap counselor II-XII 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 Lymphatic: no anterior cervical fortunato avf intact IMPRESSION This is a gentleman with s/p renal transplant with infected toe with osteo s/p surg early september with amputation and sub delayed closure who had ecoli and staph was dcd recently off abx as his stump was clean and all his infected tissue had been excised now with * Infected foot with fever on admission MRSA sepsis- in a pt who is immunosupp (recent toe amputation with osteo, s/p complete debridement of osteo with toe amputation and wound closure on 09/09/17) now - MRSA infection and resolving sepsis, now s/p angioplasty of peroneal artery and wound redebridement of the foot. PT now has a wound vac, and on dapto, and would need senior living abx. No sig endocarditis noted in junior, now with poor wound healing and ongoing eval for further plan * Improving leukopenia and anemia - pt on immunosupp rx, was on cell cept which is held and Tacrolimus dose is reduced, normal flow. - now on daily neupogen 300 mcg, and CMV viral load neg * Sore throat now with some evidence of pharyngitis nil acute so far, However barium esophagogram did show evidence of esophagitis and a prob stricture in the lower esophagus * Ongoing diarrhea * REsolved delirium without Sig neuro deficit * MRI showing very small punctate lesions prob ateromatous small emboli, on anticoag, and statin * PT with Pafib in Sinus and sig atheromatous aorta, small pfo, - on eloquis * Prolonged qtc, previous low mag need to continue to monitor * REsolving SHIRA with CKD s/p renal transplant, creat now 1.6 (recent contrast use) * DM insulin requiring endo onboard * PVD, previous history of stoke, and previous toe amputation, now angioplasty * Previous secondary hyperparathyroid. Sig autonomic dysfunction was on fludocortisone * Pafib on eliquis (in sinus on amiodarone) (being dosed for renal function) * Depression and anxiety * Peripheral neuropathy * Mild ekg changes with slight elevated troponin stable REC * COnt abx * Check wbc daily, dc neupogen in am if wbc is stable * COnt current dose of tacrolimus, check level daily for now * mycophenolate 500 bid from today * GI consult called for a prob egd d/w Dr. lee\ * Start iv heparin this pm without bolus (cont till all the interventions are done) * Cdiff pcr * WOund vac * Daily tacrolimus level and will adjust dose subsequently * ID and Podiatry, vascular, Cardio,Endo and renal following * EKG monitoring per cardio * Cont metoprolol, statin, amio, antidepressant lexapro * Keep sugars less than 150
[2017-10-04 10:21] LABS: C.DIFFICILE TOXIN B QL PCR NOT DETECTED (NOT DETECTED)
--- NOTE | 2017-10-04 12:12 | PN- Infect Dx ---
Subjective Subjective: Afebrile. He feels better with decreased odynophagia. He still reports difficulty in controlling his bowel movements. He has no pain in the right foot. Objective Last 24 Hrs of Vital Signs/I&O Vital Signs Date Time Temp Pulse Resp B/P B/P Pulse O2 O2 Flow FiO2 Mean Ox Delivery Rate 10/04 0755 69 132/70 10/04 0755 69 132/70 10/04 0654 97.8 69 20 132/70 97 Room Air 10/03 2216 98.3 67 24 130/70 95 10/03 1459 Nasal 2.0L Cannula 10/03 1454 98.4 63 16 100/70 95 Room Air Intake & Output 10/04 1600 10/04 0800 10/04 0000 Intake Total 240 300 Output Total 650 300 Balance -410 0 Intake, Oral 240 300 Output, Urine 650 300 Patient 204 lb Weight Physical Exam Other Physical Findings: He appears comfortable in no acute distress HEENT negative Lungs are clear Heart regular rhythm with a 1/6 systolic ejection murmur Extremities right foot dressing intact Results Last 24 Hours of Lab Results: Laboratory Tests 10/04 10/03 0630 1400 Chemistry Sodium (137 - 145 mmol/L) 141 Potassium (3.5 - 5.1 mmol/L) 4.5 Chloride (98 - 107 mmol/L) 107 Carbon Dioxide (22 - 30 mmol/L) 25 Anion Gap (5 - 16) 10 BUN (9 - 20 mg/dL) 24 H Creatinine (0.7 - 1.2 mg/dL) 1.4 H Estimated GFR (>60 ml/min) 50 L BUN/Creatinine Ratio (7 - 25 %) 17.1 Magnesium (1.6 - 2.3 mg/dL) 1.9 Hematology CBC w Diff MAN DIFF ORDERED WBC (4.8 - 10.8 /CUMM) 8.0 RBC (4.70 - 6.10 /CUMM) 3.21 L Hgb (14.0 - 18.0 G/DL) 8.8 L Hct (42 - 52 %) 27.0 L MCV (80.0 - 94.0 FL) 84.0 MCH (27.0 - 31.0 PG) 27.4 MCHC (33.0 - 37.0 G/DL) 32.6 L RDW (11.5 - 14.5 %) 14.3 Plt Count (130 - 400 /CUMM) 318 MPV (7.4 - 10.4 FL) 8.0 Gran % (42.2 - 75.2 %) 74.2 Lymphocytes % (20.5 - 51.1 %) 11.8 L Monocytes % (1.7 - 9.3 %) 11.6 H Eosinophils % (0 - 5 %) 2.0 Basophils % (0.0 - 2.0 %) 0.4 Absolute Granulocytes (1.4 - 6.5 /CUMM) 5.9 Segmented Neutrophils (42.2 - 75.2 %) 63 Band Neutrophils (0.0 - 5.0 %) 10 H Absolute Lymphocytes (1.2 - 3.4 /CUMM) 0.9 L Lymphocytes (20.5 - 51.1 %) 8 L Monocytes (1.7 - 9.3 %) 16 H Absolute Monocytes (0.10 - 0.60 /CUMM) 0.9 H Eosinophils (0 - 5.0 %) 1 Absolute Eosinophils (0.0 - 0.7 /CUMM) 0.2 Absolute Basophils (0.0 - 0.2 /CUMM) 0 Metamyelocytes (0.0 - 1.0 %) 2 H Nucleated RBCs (0.0 - 0.0 /100WBC) 3 H Platelet Estimate (ADEQUATE) ADEQUATE Hypochromic-Microcytic 1+ Poikilocytosis 2+ Anisocytosis 1+ ESR Westergren (0 - 10 MM) 49 H Toxicology Tacrolimus Pending Last 24 Hours of Joel Results: Stool C. difficile PCR October 02 negative Recent Imaging Studies: Barium swallow October 03 reveals esophageal irregularity in the proximal thoracic esophagus, raising concern for subtle esophagitis; circumferential stricture at the GE junction with transient obstruction to the antegrade flow of a barium tablet at this level; mild esophageal dysmotility X-ray of the right foot October 03 postop changes status post transient metatarsal amputation of the first digit Assessment/Plan ID Impression: Continues to improve, with his white blood cell count increasing and his creatinine decreasing since discontinuation of the Vancomycin 1 week ago, now on Daptomycin, Day 12 of treatment for MRSA sepsis/osteomyelitis of the right foot status post revisional partial first ray resection, placement of a wound VAC and right peroneal artery angioplasty one week ago. The viability of his right foot is of concern, despite the recent angioplasty, given evidence of persistent ischemia per Podiatry. Suggestion: 1. Vascular surgery follow-up 2. Repeat CPK in the a.m. 3. Await placement of a Pro-Line 4. GI evaluation regarding his odynophagia and fecal incontinence 5. Discontinue Neupogen per Hematology 6. Continue Daptomycin
[2017-10-04 14:15] VITALS: BP 132/64
--- NOTE | 2017-10-04 14:26 | PN- Nephrology ---
Assessment/Plan Nephrology Assessment: 1. CKD stage III status post DDKT 2014 2. SHIRA - significantly improved likely due to better hydration although contrast nephropathy and/or vancomycin toxicity may have played a role; serum creatinine now approaching baseline 3. 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 Necrotic wound/osteomyelitis right foot; s/p I&D, revision partial first ray resection 5. Episodic confusion - MRI --> ?possible multiple microemboli -appears to have resolved 6. Leukopenia/neutropenia -resolved on Neupogen 7. Anemia - now on weekly Procrit 8. Odynophagia - improved; barium swallow--> possible esophagitis in the proximal thoracic esophagus as well as a circumferential stricture at the GE junction and mild esophageal dysmotility 9. Diarrhea with negative C. difficile Suggestion: 1. Would continue current dose of tacrolimus and MMF with plans to increase his MMF back to his original dose in a few days. I would keep his tacrolimus dose at 2.75 mg per day throughout the remainder of this hospitalization. 2. Please recheck serum albumin level 3. Vascular surgery and GI follow-up 4. Antibiotic therapy per ID Subjective Subjective: Patient looks and feels better. Still having loose stools. Less discomfort with swallowing. Barium swallow results noted. EGD being considered. Remains on daptomycin. Creatinine continues to slowly fall and he remains afebrile with normal WBC - on Neupogen. Hemoglobin not falling; on weekly Procrit. Objective Vital Signs and I&Os Vital Signs Date Time Temp Pulse Resp B/P B/P Pulse O2 O2 Flow FiO2 Mean Ox Delivery Rate 10/04 1415 97.8 67 20 132/64 94 Room Air / 0755 69 132/70 / 0755 69 132/70 04/03 0654 97.8 69 20 132/70 97 Room Air / 2216 98.3 67 24 130/70 95 / 1459 Nasal 2.0L Cannula 10/03 1454 98.4 63 16 100/70 95 Room Air Intake & Output 10/04 1600 10/04 0400 10/03 1600 10/03 0400 10/02 1600 10/02 0400 Intake Total 1040 300 800 700 730 300 Output Total 1350 300 875 575 825 325 Balance -310 0 -75 125 -95 -25 Intake, IV 80 Intake, Oral 1040 300 800 620 730 300 Number 1 1 0 3 1 Bowel Movements Output, Urine 1350 300 875 575 825 325 Patient 204 lb 207 lb Weight Physical Exam: General: Well-developed white male in NAD Skin: No rash or jaundice; multiple senile keratoses; no petechiae or splinter hemorrhages HEENT: Conjunctivae pale, sclerae anicteric, mucous membranes moist Neck: Without masses or thyromegaly, no supraclavicular or cervical adenopathy Chest: Clear to P&A Heart: Regular rate and rhythm without S3 or rub Abdomen: Soft and nontender without palpable masses or organomegaly Extremities: Without cyanosis or edema; right foot dressing intact Neuro: Awake, alert and oriented, no focal findings, no asterixis or myoclonus Results Pertinent Lab Results: Laboratory Tests 10/04 10/03 0630 1400 Chemistry Sodium (137 - 145 mmol/L) 141 Potassium (3.5 - 5.1 mmol/L) 4.5 Chloride (98 - 107 mmol/L) 107 Carbon Dioxide (22 - 30 mmol/L) 25 Anion Gap (5 - 16) 10 BUN (9 - 20 mg/dL) 24 H Creatinine (0.7 - 1.2 mg/dL) 1.4 H Estimated GFR (>60 ml/min) 50 L BUN/Creatinine Ratio (7 - 25 %) 17.1 Magnesium (1.6 - 2.3 mg/dL) 1.9 Hematology CBC w Diff MAN DIFF ORDERED WBC (4.8 - 10.8 /CUMM) 8.0 RBC (4.70 - 6.10 /CUMM) 3.21 L Hgb (14.0 - 18.0 G/DL) 8.8 L Hct (42 - 52 %) 27.0 L MCV (80.0 - 94.0 FL) 84.0 MCH (27.0 - 31.0 PG) 27.4 MCHC (33.0 - 37.0 G/DL) 32.6 L RDW (11.5 - 14.5 %) 14.3 Plt Count (130 - 400 /CUMM) 318 MPV (7.4 - 10.4 FL) 8.0 Gran % (42.2 - 75.2 %) 74.2 Lymphocytes % (20.5 - 51.1 %) 11.8 L Monocytes % (1.7 - 9.3 %) 11.6 H Eosinophils % (0 - 5 %) 2.0 Basophils % (0.0 - 2.0 %) 0.4 Absolute Granulocytes (1.4 - 6.5 /CUMM) 5.9 Segmented Neutrophils (42.2 - 75.2 %) 63 Band Neutrophils (0.0 - 5.0 %) 10 H Absolute Lymphocytes (1.2 - 3.4 /CUMM) 0.9 L Lymphocytes (20.5 - 51.1 %) 8 L Monocytes (1.7 - 9.3 %) 16 H Absolute Monocytes (0.10 - 0.60 /CUMM) 0.9 H Eosinophils (0 - 5.0 %) 1 Absolute Eosinophils (0.0 - 0.7 /CUMM) 0.2 Absolute Basophils (0.0 - 0.2 /CUMM) 0 Metamyelocytes (0.0 - 1.0 %) 2 H Nucleated RBCs (0.0 - 0.0 /100WBC) 3 H Platelet Estimate (ADEQUATE) ADEQUATE Hypochromic-Microcytic 1+ Poikilocytosis 2+ Anisocytosis 1+ ESR Westergren (0 - 10 MM) 49 H Toxicology Tacrolimus Pending 10/03 10/02 0658 1044 Chemistry Sodium (137 - 145 mmol/L) 141 140 Potassium (3.5 - 5.1 mmol/L) 4.8 4.6 Chloride (98 - 107 mmol/L) 106 106 Carbon Dioxide (22 - 30 mmol/L) 23 23 Anion Gap (5 - 16) 11 12 BUN (9 - 20 mg/dL) 27 H 31 H Creatinine (0.7 - 1.2 mg/dL) 1.5 H 1.5 H Estimated GFR (>60 ml/min) 46 L 46 L BUN/Creatinine Ratio (7 - 25 %) 18.0 20.7 Calcium (8.4 - 10.2 mg/dL) 7.0 L Phosphorus (2.5 - 4.5 mg/dL) 3.0 Magnesium (1.6 - 2.3 mg/dL) 1.7 1.7 C-Reactive Prot, Quant (<1.0 mg/dL) > 9.0 H Hematology CBC w Diff MAN DIFF ORDERED MAN DIFF ORDERED WBC (4.8 - 10.8 /CUMM) 5.3 3.0 L RBC (4.70 - 6.10 /CUMM) 3.12 L 3.15 L Hgb (14.0 - 18.0 G/DL) 8.5 L 8.6 L Hct (42 - 52 %) 26.2 L 26.2 L MCV (80.0 - 94.0 FL) 84.0 83.0 MCH (27.0 - 31.0 PG) 27.4 27.4 MCHC (33.0 - 37.0 G/DL) 32.6 L 33.0 RDW (11.5 - 14.5 %) 14.3 14.4 Plt Count (130 - 400 /CUMM) 321 320 MPV (7.4 - 10.4 FL) 7.9 7.5 Gran % (42.2 - 75.2 %) 60.1 45.0 Lymphocytes % (20.5 - 51.1 %) 15.6 L 20.3 L Monocytes % (1.7 - 9.3 %) 20.8 H 29.3 H Eosinophils % (0 - 5 %) 3.2 4.8 Basophils % (0.0 - 2.0 %) 0.3 0.6 Absolute Granulocytes (1.4 - 6.5 /CUMM) 3.2 1.3 L Segmented Neutrophils (42.2 - 75.2 %) 50 21 L Band Neutrophils (0.0 - 5.0 %) 12 H 11 H Absolute Lymphocytes (1.2 - 3.4 /CUMM) 0.8 L 0.6 L Lymphocytes (20.5 - 51.1 %) 11 L 25 Monocytes (1.7 - 9.3 %) 19 H 31 H Absolute Monocytes (0.10 - 0.60 /CUMM) 1.1 H 0.9 H Eosinophils (0 - 5.0 %) 2 5 Absolute Eosinophils (0.0 - 0.7 /CUMM) 0.2 0.1 Basophils (0.0 - 2.0 %) 5 H Absolute Basophils (0.0 - 0.2 /CUMM) 0 0 Metamyelocytes (0.0 - 1.0 %) 2 H 1 Myelocytes (0 - 0 %) 4 H 1 H Nucleated RBCs (0.0 - 0.0 /100WBC) 1 H 3 H Platelet Estimate (ADEQUATE) ADEQUATE VERIFIED BY SMEAR Polychromasia 1+ 1+ Poikilocytosis 1+ Anisocytosis 1+ 1+ Ovalocytes FEW 1+ Toxicology Tacrolimus (() mcg/L) 10.6 10/02 10/02 10/01 0939 0600 2235 Hematology CBC w Diff MAN DIFF ORDERED WBC (4.8 - 10.8 /CUMM) 2.6 L RBC (4.70 - 6.10 /CUMM) 3.02 L Hgb (14.0 - 18.0 G/DL) 8.1 L Hct (42 - 52 %) 25.1 L MCV (80.0 - 94.0 FL) 83.4 MCH (27.0 - 31.0 PG) 26.9 L MCHC (33.0 - 37.0 G/DL) 32.3 L RDW (11.5 - 14.5 %) 14.2 Plt Count (130 - 400 /CUMM) 318 MPV (7.4 - 10.4 FL) 7.7 Gran % (42.2 - 75.2 %) 31.2 L Lymphocytes % (20.5 - 51.1 %) 23.9 Monocytes % (1.7 - 9.3 %) 39.2 H Eosinophils % (0 - 5 %) 4.8 Basophils % (0.0 - 2.0 %) 0.9 Absolute Granulocytes (1.4 - 6.5 /CUMM) 0.8 L Segmented Neutrophils (42.2 - 75.2 %) 18 L Band Neutrophils (0.0 - 5.0 %) 9 H Absolute Lymphocytes (1.2 - 3.4 /CUMM) 0.6 L Lymphocytes (20.5 - 51.1 %) 20 L Monocytes (1.7 - 9.3 %) 40 H Absolute Monocytes (0.10 - 0.60 /CUMM) 1.0 H Eosinophils (0 - 5.0 %) 8 H Absolute Eosinophils (0.0 - 0.7 /CUMM) 0.1 Basophils (0.0 - 2.0 %) 2 Absolute Basophils (0.0 - 0.2 /CUMM) 0 Metamyelocytes (0.0 - 1.0 %) 1 Myelocytes (0 - 0 %) 2 H Nucleated RBCs (0.0 - 0.0 /100WBC) 11 H Platelet Estimate (ADEQUATE) ADEQUATE Polychromasia 1+ Serology C. difficile Tox B Gene (NOT DETECTED) NOT DETECTED Toxicology Tacrolimus (() mcg/L) 12.1 10/01 1900 Hematology CBC w Diff Cancelled WBC Cancelled RBC Cancelled Hgb Cancelled Hct Cancelled MCV Cancelled MCH Cancelled MCHC Cancelled RDW Cancelled Plt Count Cancelled MPV Cancelled
--- NOTE | 2017-10-04 14:43 | Cons- Gastroenterology ---
General Information and HPI Consulting Request Date of Consult: 10/04/17 Requested By: Lakeisha RANKIN,Gilbert Mark Reason for Consult: Dysphagia. Source of Information: patient, old records Exam Limitations: no limitations History of Present Illness: Mr. Edouard is a 71 year old male with multiple medical problems including but not limited to a kidney transplant for which he is on immunosuppressive medications, DM, and afib on anti-coagulation who was admitted on 09/22/17 with osteomyelitis of his right foot for which he has undergone partial first toe resection, placement of a wound VAC and right peroneal artery angioplasty one week ago who has also been complaining of dysphagia/odynophagia. He notes that he has had intermittent issues with painful swallowing dating back 20 years when he was intubated for a hospitalization for peritonitis. He notes that he will sometimes have a pain in his upper throat upon swallowing, but that food goes down without really sticking in his chest. He is without any abdominal pain with eating, nausea or vomiting. Over the course of this hospitalization he has noted worsening pain on swallowing for which a barium swallowed was ordered which was unremarkable and he notes that over the past few days that symptom seems to be improving. He is also complaining of some loose stool, but he is without any rectal bleeding or pain with his bowel movements. He has been tolerating a full PO diet without difficulty. Allergies/Medications Allergies: Coded Allergies: NO KNOWN ALLERGIES (NONE 09/09/17) Home Med List: Alprazolam 0.5 MG TABLET 1 TAB PO DAILY PRN Anxiety (Reported) Amiodarone (Cordarone) 200 MG TAB 0.5 TAB PO DAILY A.fib (Reported) Apixaban (Eliquis) 5 MG TABLET 1 TAB PO BID Blood Thinner (Reported) Aspirin (Ecotrin*) 81 MG TABLET.DR 1 TAB PO DAILY Heart Health (Reported) Atorvastatin Calcium 10 MG TABLET 1 TAB PO DAILY cholesterol (Reported) Bupropion HCl 100 MG TABLET 1 TAB PO DAILY pain (Reported) Calcitriol 0.25 MCG CAPSULE 1 CAP PO DAILY Bone health (Reported) Calcium (Elemental-Fr Calcarb) (Calcium Antacid) 400 MG CALCIUM (1,000 MG) TAB.CHEW 1,000 MG PO TID Supplement (Reported) Cholecalciferol (Vitamin D3) (Vitamin D-3) 2,000 UNIT TABLET 1 TAB PO DAILY Supplement (Reported) Coenzyme Q10 100 MG CAPSULE 1 CAP PO DAILY Supplement (Reported) Escitalopram Oxalate (Lexapro) 20 MG TABLET 1 TAB PO QPM Anxiety (Reported) Fludrocortisone Acetate 0.1 MG TABLET 1 TAB PO DAILY SUPPLEMENT (Reported) Hydroxychloroquine Sulfate 200 MG TABLET 1 TAB PO DAILY . (Reported) Insulin Glargine,Hum.rec.anlog (Lantus Solostar) 100 UNIT/ML (3 ML) INSULN.PEN 25 UNIT SC DAILY AC Blood sugar (Reported) 26 U daily Insulin Lispro (Humalog) 100 UNIT/ML CARTRIDGE 0 SC TIDAC/HS Blood sugar ( Reported) Please take as follow:\ Blood sugar 80-150 mg/dl: none 151-200 mg/dl: 2 U 201-250 mg/dl: 4 U 251-300 mg/dl: 6 U 301-350 mg/dl: 8 U 351-400 mg/dl: 10 U more than 401 mg/dl: 12 U and call Metoprolol Succ XL (Toprol XL) 25 MG TAB 0.5 TAB PO DAILY HEART HEALTH ( Reported) Mycophenolate Mofetil (Cellcept) 250 MG CAPSULE 4 CAP PO BID Immunotherapy ( Reported) Tacrolimus 1 MG CAPSULE 2 CAP PO DAILY KIDNEY TRANSPLANT (Reported) 3.5MG TOTAL DAILY OF ENVARSUS XR (1MG TABS X2 AND 0.75MG TABS X2) Tacrolimus (Envarsus XR) 0.75 MG TAB.ER.24H 2 TAB PO DAILY TRANSPLANT ( Reported) Vit A,C & E/Lutein/Minerals (Ocuvite With Lutein Tablet) 1,000-60-2 TABLET 1 TAB PO DAILY Supplement (Reported) Current Medications: Current Medications Sig/Ira Start time Last Medication Dose Route Stop Time Status Admin Acetaminophen 650 MG Q6P PRN 09/22 1600 AC 10/02 PO 2048 Amiodarone HCl 100 MG DAILY 09/23 1000 AC 10/04 PO 0755 Apixaban 2.5 MG BID 09/28 1000 DC 10/03 PO 0734 Benzocaine/Menthol 1 CELIA Q2P PRN 09/30 0100 AC 09/30 PO 0118 Calcium/Vitamin D 500 MG DAILY 09/22 1929 AC 10/04 PO 0755 Daptomycin 500 MG Q24H 09/28 1830 AC 10/03 Sodium Chloride 50 ML IV 1908 Epoetin Onofre 20,000 U ONCE A WEEK 09/29 1030 AC 09/29 VT 1139 Escitalopram Oxalate 10 MG DAILY 09/23 1000 AC 10/04 PO 0755 Filgrastim 300 MCG DAILY 09/28 1533 DC 10/04 SC 0754 Heparin Sodium 25,000 UNIT Q24H 10/04 1700 AC (Porcine) IV Sodium Chloride 500 ML Insulin Aspart 0 TIDAC/HS 09/28 1700 AC 10/04 SC 1200 Insulin Detemir 20 UNITS 8AM 09/30 0800 AC 10/04 SC 0756 Lidocaine/Diphenhydr/ 5 ML Q4-6 PRN PRN 09/30 1530 AC 10/03 Alum/Mg/Simeth PO 2130 Magnesium Sulfate 1 GM ONCE ONE 10/03 1545 DC 10/03 Dextrose/Water 100 ML IV 10/03 1944 1552 Metoprolol Succinate 12.5 MG DAILY 09/23 1000 AC 10/04 PO 0755 Mycophenolate Mofetil 500 MG BID 10/04 1000 AC 10/04 PO 0755 Omeprazole 20 MG DAILY AC 10/03 1334 AC 10/04 PO 0555 Tacrolimus 0.75 MG 0810/01 0800 AC 10/04 PO 0755 Tacrolimus 2 MG 0800 09/30 0800 AC 10/04 PO 0755 Tramadol HCl 25 MG ONCE ONE 10/03 2315 DC 10/03 PO 10/03 2316 2309 Past History Travel History Traveled to [place] past 21 day No Medical History Neurological: STROKE EENT: NONE, glaucoma Cardiovascular: AFIB, hypertension, hyperlipidemia, AFIB (ON COUMADIN) Respiratory: NONE Gastrointestinal: NONE Hepatic: NONE Renal: ESRD on HD (in the past), renal transplant Musculoskeletal: fracture, R ARM FRACTURE Psychiatric: NONE Endocrine: diabetes type 2 Blood Disorders: NONE Cancer(s): 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 Denies: fever. EENTM: Denies: no symptoms. Cardiovascular: Denies: no symptoms. Respiratory: Denies: no symptoms. GI: Reports: see HPI. Genitourinary: Denies: no symptoms. Musculoskeletal: Reports: joint pain, joint swelling. Skin: Denies: no symptoms. Neurological/Psychological: Denies: no symptoms. Hematologic/Endocrine: Denies: no symptoms. Immunologic/Allergic: Denies: no symptoms. All Other Systems: Reviewed and Negative Exam & Diagnostic Data Vital Signs and I&O Vital Signs Date Time Temp Pulse Resp B/P B/P Pulse O2 O2 Flow FiO2 Mean Ox Delivery Rate 10/04 0755 69 132/70 10/04 0755 69 132/70 10/04 0654 97.8 69 20 132/70 97 Room Air 10/03 2216 98.3 67 24 130/70 95 10/03 1459 Nasal 2.0L Cannula 10/03 1454 98.4 63 16 100/70 95 Room Air Intake & Output 10/04 1600 10/04 0400 10/03 1600 10/03 0400 10/02 1600 10/02 0400 Intake Total 240 300 800 700 730 300 Output Total 650 300 875 575 825 325 Balance -410 0 -75 125 -95 -25 Intake, IV 80 Intake, Oral 240 300 800 620 730 300 Number 1 0 3 1 Bowel Movements Output, Urine 650 300 875 575 825 325 Patient 204 lb 207 lb Weight Physical Exam General Appearance: well developed/nourished, no apparent distress, alert, comfortable Head: atraumatic, normal appearance Eyes: Bilateral: normal appearance. Ears, Nose, Throat: normal pharynx, normal ENT inspection Neck: normal inspection, supple, full range of motion Respiratory: normal breath sounds, chest non-tender, no respiratory distress Cardiovascular: regular rate/rhythm Gastrointestinal: normal bowel sounds, soft, non-tender, no organomegaly Back: normal inspection Extremities: right food bandaged with a wound vac and was not further examined Neurologic/Psych: no motor/sensory deficits, awake, alert, oriented x 3 Results Pertinent Lab Results: Laboratory Tests 10/04 10/03 0630 1400 Chemistry Sodium (137 - 145 mmol/L) 141 Potassium (3.5 - 5.1 mmol/L) 4.5 Chloride (98 - 107 mmol/L) 107 Carbon Dioxide (22 - 30 mmol/L) 25 Anion Gap (5 - 16) 10 BUN (9 - 20 mg/dL) 24 H Creatinine (0.7 - 1.2 mg/dL) 1.4 H Estimated GFR (>60 ml/min) 50 L BUN/Creatinine Ratio (7 - 25 %) 17.1 Magnesium (1.6 - 2.3 mg/dL) 1.9 Hematology CBC w Diff MAN DIFF ORDERED WBC (4.8 - 10.8 /CUMM) 8.0 RBC (4.70 - 6.10 /CUMM) 3.21 L Hgb (14.0 - 18.0 G/DL) 8.8 L Hct (42 - 52 %) 27.0 L MCV (80.0 - 94.0 FL) 84.0 MCH (27.0 - 31.0 PG) 27.4 MCHC (33.0 - 37.0 G/DL) 32.6 L RDW (11.5 - 14.5 %) 14.3 Plt Count (130 - 400 /CUMM) 318 MPV (7.4 - 10.4 FL) 8.0 Gran % (42.2 - 75.2 %) 74.2 Lymphocytes % (20.5 - 51.1 %) 11.8 L Monocytes % (1.7 - 9.3 %) 11.6 H Eosinophils % (0 - 5 %) 2.0 Basophils % (0.0 - 2.0 %) 0.4 Absolute Granulocytes (1.4 - 6.5 /CUMM) 5.9 Segmented Neutrophils (42.2 - 75.2 %) 63 Band Neutrophils (0.0 - 5.0 %) 10 H Absolute Lymphocytes (1.2 - 3.4 /CUMM) 0.9 L Lymphocytes (20.5 - 51.1 %) 8 L Monocytes (1.7 - 9.3 %) 16 H Absolute Monocytes (0.10 - 0.60 /CUMM) 0.9 H Eosinophils (0 - 5.0 %) 1 Absolute Eosinophils (0.0 - 0.7 /CUMM) 0.2 Absolute Basophils (0.0 - 0.2 /CUMM) 0 Metamyelocytes (0.0 - 1.0 %) 2 H Nucleated RBCs (0.0 - 0.0 /100WBC) 3 H Platelet Estimate (ADEQUATE) ADEQUATE Hypochromic-Microcytic 1+ Poikilocytosis 2+ Anisocytosis 1+ ESR Westergren (0 - 10 MM) 49 H Toxicology Tacrolimus Pending 10/03 10/02 0658 1044 Chemistry Sodium (137 - 145 mmol/L) 141 140 Potassium (3.5 - 5.1 mmol/L) 4.8 4.6 Chloride (98 - 107 mmol/L) 106 106 Carbon Dioxide (22 - 30 mmol/L) 23 23 Anion Gap (5 - 16) 11 12 BUN (9 - 20 mg/dL) 27 H 31 H Creatinine (0.7 - 1.2 mg/dL) 1.5 H 1.5 H Estimated GFR (>60 ml/min) 46 L 46 L BUN/Creatinine Ratio (7 - 25 %) 18.0 20.7 Calcium (8.4 - 10.2 mg/dL) 7.0 L Phosphorus (2.5 - 4.5 mg/dL) 3.0 Magnesium (1.6 - 2.3 mg/dL) 1.7 1.7 C-Reactive Prot, Quant (<1.0 mg/dL) > 9.0 H Hematology CBC w Diff MAN DIFF ORDERED MAN DIFF ORDERED WBC (4.8 - 10.8 /CUMM) 5.3 3.0 L RBC (4.70 - 6.10 /CUMM) 3.12 L 3.15 L Hgb (14.0 - 18.0 G/DL) 8.5 L 8.6 L Hct (42 - 52 %) 26.2 L 26.2 L MCV (80.0 - 94.0 FL) 84.0 83.0 MCH (27.0 - 31.0 PG) 27.4 27.4 MCHC (33.0 - 37.0 G/DL) 32.6 L 33.0 RDW (11.5 - 14.5 %) 14.3 14.4 Plt Count (130 - 400 /CUMM) 321 320 MPV (7.4 - 10.4 FL) 7.9 7.5 Gran % (42.2 - 75.2 %) 60.1 45.0 Lymphocytes % (20.5 - 51.1 %) 15.6 L 20.3 L Monocytes % (1.7 - 9.3 %) 20.8 H 29.3 H Eosinophils % (0 - 5 %) 3.2 4.8 Basophils % (0.0 - 2.0 %) 0.3 0.6 Absolute Granulocytes (1.4 - 6.5 /CUMM) 3.2 1.3 L Segmented Neutrophils (42.2 - 75.2 %) 50 21 L Band Neutrophils (0.0 - 5.0 %) 12 H 11 H Absolute Lymphocytes (1.2 - 3.4 /CUMM) 0.8 L 0.6 L Lymphocytes (20.5 - 51.1 %) 11 L 25 Monocytes (1.7 - 9.3 %) 19 H 31 H Absolute Monocytes (0.10 - 0.60 /CUMM) 1.1 H 0.9 H Eosinophils (0 - 5.0 %) 2 5 Absolute Eosinophils (0.0 - 0.7 /CUMM) 0.2 0.1 Basophils (0.0 - 2.0 %) 5 H Absolute Basophils (0.0 - 0.2 /CUMM) 0 0 Metamyelocytes (0.0 - 1.0 %) 2 H 1 Myelocytes (0 - 0 %) 4 H 1 H Nucleated RBCs (0.0 - 0.0 /100WBC) 1 H 3 H Platelet Estimate (ADEQUATE) ADEQUATE VERIFIED BY SMEAR Polychromasia 1+ 1+ Poikilocytosis 1+ Anisocytosis 1+ 1+ Ovalocytes FEW 1+ Toxicology Tacrolimus (() mcg/L) 10.6 10/02 10/02 10/01 0939 0600 2235 Hematology CBC w Diff MAN DIFF ORDERED WBC (4.8 - 10.8 /CUMM) 2.6 L RBC (4.70 - 6.10 /CUMM) 3.02 L Hgb (14.0 - 18.0 G/DL) 8.1 L Hct (42 - 52 %) 25.1 L MCV (80.0 - 94.0 FL) 83.4 MCH (27.0 - 31.0 PG) 26.9 L MCHC (33.0 - 37.0 G/DL) 32.3 L RDW (11.5 - 14.5 %) 14.2 Plt Count (130 - 400 /CUMM) 318 MPV (7.4 - 10.4 FL) 7.7 Gran % (42.2 - 75.2 %) 31.2 L Lymphocytes % (20.5 - 51.1 %) 23.9 Monocytes % (1.7 - 9.3 %) 39.2 H Eosinophils % (0 - 5 %) 4.8 Basophils % (0.0 - 2.0 %) 0.9 Absolute Granulocytes (1.4 - 6.5 /CUMM) 0.8 L Segmented Neutrophils (42.2 - 75.2 %) 18 L Band Neutrophils (0.0 - 5.0 %) 9 H Absolute Lymphocytes (1.2 - 3.4 /CUMM) 0.6 L Lymphocytes (20.5 - 51.1 %) 20 L Monocytes (1.7 - 9.3 %) 40 H Absolute Monocytes (0.10 - 0.60 /CUMM) 1.0 H Eosinophils (0 - 5.0 %) 8 H Absolute Eosinophils (0.0 - 0.7 /CUMM) 0.1 Basophils (0.0 - 2.0 %) 2 Absolute Basophils (0.0 - 0.2 /CUMM) 0 Metamyelocytes (0.0 - 1.0 %) 1 Myelocytes (0 - 0 %) 2 H Nucleated RBCs (0.0 - 0.0 /100WBC) 11 H Platelet Estimate (ADEQUATE) ADEQUATE Polychromasia 1+ Serology C. difficile Tox B Gene (NOT DETECTED) NOT DETECTED Toxicology Tacrolimus (() mcg/L) 12.1 10/01 1900 Hematology CBC w Diff Cancelled WBC Cancelled RBC Cancelled Hgb Cancelled Hct Cancelled MCV Cancelled MCH Cancelled MCHC Cancelled RDW Cancelled Plt Count Cancelled MPV Cancelled Imaging/Other Studies: Endoscopy Procedure Medical History: unchanged (see ED note) Mental Status: alert/oriented Heart/Lung Eval Prior to Sedation: within normal limits Candidate for Sedation? Yes Procedure Date: 04/19/15 Procedure Type: EGD with foreign body removal General Counselor: Shawn Kay MD ASA Classification: IV Indications: Swallowed foreign body, which was a needle and confirmed to still be in the stomach by ct scan. Instrument: diagnostic gastroscope Meds Received: MAC Patient's Tolerance: good Complications: none Extent Reached: second part of duodenum Procedure: After getting written informed consent the patient was prophylactically intubated and was then placed in the left lateral decubitus position with pulse oximetry, cardiac monitoring, and supplemental oxygen given. A bite block was inserted and additional IV sedation was given until the desired effect was achieved. A high definition upper Olympus endoscope was then inserted into the mouth and advanced to the second portion of the duodenum with little difficulty. Retroflexed views and photodocumentation was obtained. After inspection of the upper GI tract as described above two foreign bodies were appreciated in the stomach. One was an accu view test strip and the other was a plastic blue cap with a sharp needle protruding form it. Both objects were grabbed with a rat- tooth forceps and were removed from the stomach with the endoscope. The endoscope was reintroduced into the patient's mouth and readvanced back to the second portion of the duodenum to examine the stomach after the foreign bodies were removed. The scope was then removed from the patient she was terminated. Findings: Esophagus: The esophageal mucosa was grossly normal in appearance and there was a normal appearing Z line at 40 cm from the incisors. Stomach: There was some retained food within the antrum and along the incisure were 2 foreign bodies. One perico accu view test strip (which was determined after it was removed) and the other was a plastic blue cap with a needle protruding from it. As stated in the procedure section of this report both objects were removed using a rat-tooth forcep. The gastric mucosa was grossly normal in appearance and there were no ulcers, erosions, or masses appreciated. Distention was normal, but peristalsis appeared decreased with some left over food. Retroflexed views were normal did not reveal a significant hiatal hernia. Duodenum: The duodenal bulb, sweep, and folds are grossly normal in appearance. Impression: 1. 2 foreign bodies in the stomach status post removal via rat-tooth forcep. 2. Findings suggestive of gastroparesis. Assessment/Plan Assessment/Recommendations: Assessment: Mr. Edouard is a 71 year old male with multiple medical problems who is currently admitted for osteomyeltis of his right foot who has had some odynophagia while he is here of uncertain etiology, but considering he has had intermittent symptoms for upwards of 20 years and an unremarkable barium swallow and the symptoms are resolving without any significant intervention I suspect it is benign and possibly related to underlying GERD. That being said, considering the immunosuppression he is on for his kidney transplant it would be reasonable to repeat an upper endoscopy to rule out any opportunistic infection which may explain his symptoms such as [place], HSV or CMV esophagitis and I will plan to do this once he has been off of his blood thiners for at least 48 hours. Recommendations: 1. Diet as tolerated 2. PO PPI 3. Hold eliquis 4. Will tentatively plan to perform a diagnostic/therapeutic egd on so would ask that he be kept npo after midnight on Tuesday and would hold heparin at the same time. 5. If he continues to have diarrhea would check stool for c diff. I will continue to follow this patient and make further recommendations based on his clinical course and results of the EGD on . Problem List: 1. Sore throat 2. Loose stools Copies To: Lakeisha RANKIN,Gilbert Mark Consult Acknowledgment - Thank you for your consult request.
[2017-10-05 01:34] LABS: PTT 46 SEC (25-37)
[2017-10-05 07:05] VITALS: BP 112/82
--- NOTE | 2017-10-05 07:16 | PN- Housestaff ---
Subjective Follow-up For: Osteomyelitis Positive blood cultures New left bundle branch block SHIRA in Renal transplant patient Neuropenia AMS Tele-Events Since Last Visit: NSR 62-68 Subjective: No acute events overnight. Patient states he feels somewhat hoepless as he has been in the hospital for a while and there is nothing active that he can do to improve his leg. Review of Systems Constitutional: Reports: see HPI. Objective Last 24 Hrs of Vital Signs/I&O Vital Signs Date Time Temp Pulse Resp B/P B/P Pulse O2 O2 Flow FiO2 Mean Ox Delivery Rate 10/05 1351 98.0 64 18 112/70 96 Room Air 10/05 0935 98.3 64 20 112/82 10/05 0935 98.3 64 20 112/82 10/05 0705 98.3 64 0 94 Room Air Intake & Output 10/05 1600 10/05 0800 10/05 0000 Intake Total 717.6 110 575 Output Total 400 900 200 Balance 317.6 -790 375 Intake, IV 237.6 10 200 Intake, Oral 480 100 375 Number 1 Bowel Movements Output, Urine 400 900 200 Physical Exam General Appearance: Alert, Oriented X3, Cooperative, No Acute Distress, appears somewhat sad Cardiovascular: Regular Rate, Normal S1, Normal S2 Lungs: Clear to Auscultation, Normal Air Movement Abdomen: Normal Bowel Sounds, Soft, No Tenderness Extremities: LLE no edema, RLE 1+ edema Current Medications: Current Medications Sig/Ira Start time Last Medication Dose Route Stop Time Status Admin Acetaminophen 650 MG .STK-MED ONE 10/04 2124 DC PO 10/04 2125 Acetaminophen 650 MG Q6P PRN 09/22 1600 AC 10/04 PO 212 Amiodarone HCl 100 MG DAILY 09/23 1000 AC 10/05 PO 0935 Benzocaine/Menthol 1 CELIA Q2P PRN 09/30 0100 AC 09/30 PO 0118 Calcium/Vitamin D 500 MG DAILY 09/22 1929 AC 10/05 PO 0935 Daptomycin 500 MG Q24H 09/28 1830 AC 10/04 Sodium Chloride 50 ML IV 1737 Dextrose/Sodium 1,000 ML Q20H 10/06 0000 AC Chloride IV Epoetin Onofre 20,000 U ONCE A WEEK 09/29 1030 AC 09/29 SC 1139 Escitalopram Oxalate 10 MG DAILY 09/23 1000 AC 10/05 PO 0935 Heparin Sodium 5,000 UNIT .STK-MED ONE 10/05 0606 DC (Porcine) IV 10/05 0607 Heparin Sodium 3,707 UNIT BOLUS ONE 10/05 0347 DC 10/05 (Porcine) IV 10/05 0348 0637 Heparin Sodium 25,000 UNIT Q24H 10/04 1700 AC 10/05 (Porcine) IV 10/06 0000 1652 Sodium Chloride 500 ML Insulin Aspart 0 Q6 10/06 0005 AC SC Insulin Aspart 0 .[NPO SCALE] 10/06 0000 CAN SC Insulin Aspart 0 TIDAC/HS 09/28 1700 AC 10/05 SC 10/06 0000 1650 Insulin Detemir 20 UNITS 8AM 09/30 0800 AC 10/05 SC 0811 Lidocaine/Diphenhydr/ 5 ML Q4-6 PRN PRN 09/30 1530 AC 10/03 Alum/Mg/Simeth PO 2130 Magnesium Sulfate 1 GM ONCE ONE 10/05 1115 DC 10/05 Dextrose/Water 100 ML IV 10/05 1514 1409 Metoprolol Succinate 12.5 MG DAILY 09/23 1000 AC 10/05 PO 0935 Mycophenolate Mofetil 500 MG BID 10/04 1000 AC 10/05 PO 1215 Omeprazole 20 MG DAILY AC 10/03 1334 AC 10/05 PO 0637 Tacrolimus 0.75 MG 0810/01 0800 AC 10/05 PO 0809 Tacrolimus 2 MG 0800 09/30 0800 AC 10/05 PO 0809 Tramadol HCl 50 MG .STK-MED ONE 10/05 0027 DC PO 10/05 0028 Tramadol HCl 25 MG ONCE ONE 10/04 2300 DC 10/05 PO 10/04 2301 0040 Last 24 Hrs of Lab/Joel Results Last 24 Hrs of Labs/Mics: Laboratory Tests 10/05/17 1155: APTT 82 H 10/05/17 0647: Anion Gap 11, Estimated GFR 43 L, BUN/Creatinine Ratio 15.0, Magnesium 1.9, Creatine Kinase 109, Albumin 3.1 L, CBC w Diff MAN DIFF ORDERED, RBC 3.30 L, MCV 84.0, MCH 27.5, MCHC 32.7 L, RDW 14.5, MPV 8.5, Gran % 79.1 H, Lymphocytes % 9.2 L, Monocytes % 9.9 H, Eosinophils % 1.3, Basophils % 0.5, Absolute Granulocytes 10.4 H, Segmented Neutrophils 69, Band Neutrophils 10 H, Absolute Lymphocytes 1.2, Lymphocytes 9 L, Monocytes 8, Absolute Monocytes 1.3 H, Eosinophils 1, Absolute Eosinophils 0.2, Absolute Basophils 0.1, Myelocytes 3 H , Nucleated RBCs 2 H, Platelet Estimate VERIFIED BY SMEAR, Polychromasia 1+, Anisocytosis 2+, Tacrolimus Pending Assessment/Plan Assessment: A: Patient is a 71-year-old male with a PMH significant for ESRD status post renal transplant on tacrolimus and CellCept, paroxysmal atrial fibrillation on Eliquis , HTN, HLD, CVA, DM, with recent admission to [facility] for osteomyelitis , status post amputation of the right and left third toes and left great toe who presented to the [facility] ED complaining of a several day history of malaise, nausea, vomiting, diarrhea, poor appetite found to have 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 Problem list #Sepsis 2/2 to R foot osteomyelitils WBC 2.1 -> 5.3 -> 8.0 -> 13.2 CRP >9 ESR 72 -> 49 Blood cultures + for MRSA Surgical cultures + for MRSA Arterial Doppler: Decreased flow is noted within the right anterior tibial artery, lower part of the left popliteal, and posterior tibial, anterior tibial and dorsalis pedis arteries. Repeat foot xr: post surgical changes TESS negative for vegetation but small PFO and atherosclerotic disease MRI + for foci most liekly embolic in origin and favoring bland > septic origin Baseline CPK 81, repeat 109 -NPO tonight for proline placement tomorrow and EGD -Holding apixaban x2 days per IR for proline -f/u tacrolimus level daily -keep mg >2 - switched to daptomycin from vanco. de'ed statin due to risk of rhabdo. #neurtopenia + anemia in the setting of ckd s/p renal transplant WBC 1.2 -> 13.2 Perpherial flow cytometry suggesting BM biopsy for MDS -stop neupogen as WBC has improved -Continue neutropenic diet and precautions -Follow-up hematology oncology recs #SHIRA on CKD, History of renal transplantation Creatinine 1.6 (baseline 1.2) Tacrolimus level 7.7 -stopped fluids -cont mycophenolate 500mg BID today -daily tacrolimus levels -Reduced tacrolimus 2.75 mg daily -Follow nephrology recommendations -Continue calcium/vitamin D #sore throat Rapid flu negative Strep throat culture negative CMV negative Barium swallow: 1. Esophageal irregularity,raising the suspicion of subtle esophagitis 2. Circumferential stricture at the GE junction, causing transient obstruction t 3. Mild esophageal dysmotility. -EGD tomorrow as noted above -cont magic mouth wash -monitor vitals #continued loose stools C.diff negative x2 cdiff pcr negative -avoid loose stool causing meds such as magox -possibly due to mycophenolate #Altered mental status/hallucinations Sudden onset of hallucinatinations and AMS Head CT negative -much improved after stopping dicyclomine, morphine , burproprion #H/H drop / anemia H/H 7.3 -> 9.2 s/p 1 unit. Folate 12.2, B12 >1000, ferritin >1760, iron 28 -monitor cbc daily -finished folinic acid 25 mg X7 days -cont epo -Continue to monitor #diabetes Maintain blood sugars less than 150 -cont endo recs #New onset left bundle branch block/mild elevated troponins Troponins 0.04, 0.18, 0.13 -Mild elevated troponins likely secondary to infection -Continue to follow cardiology recommendations #Chronic medical problems including PVD, paroxysmal A. fib, HTN, HLD, -Continue metoprolol, amiodarone, escitalopram, bupropion, apixaban, dicyclomine , Maalox, DVT prophylaxis: Heparin drip without bolus. holding eliquis per IR for proline CODE STATUS: Full code Problem List: 1. Loose stools 2. Sore throat 3. Left bundle branch block 4. Renal transplant rejection 5. SHIRA (acute kidney injury) 6. Osteomyelitis Pain Ratin Pain Location: foot Pain Goal: Pain 4 or less Pain Plan: pain pathway Tomorrow's Labs & Rationales: cbc bep mg tacro
[2017-10-05 08:00] LABS: ABSOLUTE EOSINOPHIL COUNT 0.2 /CUMM (0.0-0.7); ABSOLUTE LYMPH COUNT 1.2 /CUMM (1.2-3.4); RBC DISTRIBUTION WIDTH 14.5 % (11.5-14.5)
[2017-10-05 08:37] LABS: ABSOLUTE BASOPHIL COUNT 0.1 /CUMM (0.0-0.2); ABSOLUTE GRANULOCYTE CT 10.4 /CUMM (1.4-6.5); ABSOLUTE MONOCYTE COUNT 1.3 /CUMM (0.10-0.60); BASOPHIL % 0.5 % (0.0-2.0); EOSINOPHIL % 1.3 % (0-5); GRANULOCYTE % 79.1 % (42.2-75.2); HEMATOCRIT 27.7 % (42-52); MEAN CORPUSCULAR HGB 27.5 PG (27.0-31.0); MEAN CORPUSCULAR HGB CONC 32.7 G/DL (33.0-37.0); MEAN PLATELET VOLUME 8.5 FL (7.4-10.4); PLATELET COUNT 327 /CUMM (130-400)
[2017-10-05 08:40] LABS: WHITE BLOOD CELL COUNT 13.2 /CUMM (4.8-10.8)
--- NOTE | 2017-10-05 09:07 | PN- Diabetes ---
Assessment/Plan Diabetes Assessment: Patient is a 71-year-old male with a PMH significant for ESRD status post renal transplant on tacrolimus and CellCept, paroxysmal atrial fibrillation on Eliquis , HTN, HLD, CVA, DM type 2, with recent admission to [facility] for osteomyelitis, status post amputation of the toes, was admitted for chronic right foot infection. He underwent angiogram, angioplasty of right peroneal artery, right foot procedure and wound vac placement on 09/27/2017. He had TESS done on 09/28/2017. Currently he is on Levemir 20 units daily, Novolog coverage before meals and Novolog coverage at bedtime. His FSGs were 152, 315, 167, 151 and 168. As per team, he is going to have another procedure done tomorrow morning and he will be kept NPO again after midnight. Plan: continue the current Levemir and Novolog coverage before meals for now; while he is NPO, please cover him Novolog every 4 hours ( FSG < 200, no coverage ; FSG 200-250, 2 units; FSG 251-300, 3 units; FSG 301-350, 4 units; FSG 351-400, 5 units; > 400, 6 units ) will follow. Subjective Subjective: He feels okay this morning. Objective Last 24 Hrs of Vital Signs/I&O Vital Signs Date Time Temp Pulse Resp B/P B/P Pulse O2 O2 Flow FiO2 Mean Ox Delivery Rate 10/05 0705 98.3 64 0 112/82 94 Room Air 10/04 1415 97.8 67 20 132/64 94 Room Air Intake & Output 10/05 1600 10/05 0800 10/05 0000 Intake Total 110 575 Output Total 900 200 Balance -790 375 Intake, IV 10 200 Intake, Oral 100 375 Output, Urine 900 200 Findings Pertinent Lab/Joel Results: Laboratory Tests 10/05 0647 Chemistry Sodium (137 - 145 mmol/L) 142 Potassium (3.5 - 5.1 mmol/L) 4.9 Chloride (98 - 107 mmol/L) 104 Carbon Dioxide (22 - 30 mmol/L) 27 Anion Gap (5 - 16) 11 BUN (9 - 20 mg/dL) 24 H Creatinine (0.7 - 1.2 mg/dL) 1.6 H Estimated GFR (>60 ml/min) 43 L BUN/Creatinine Ratio (7 - 25 %) 15.0 Magnesium (1.6 - 2.3 mg/dL) 1.9 Creatine Kinase (55 - 170 U/L) 109 Albumin (3.5 - 5.0 g/dL) 3.1 L Hematology CBC w Diff Pending WBC Pending RBC Pending Hgb Pending Hct Pending MCV Pending MCH Pending MCHC Pending RDW Pending Plt Count Pending MPV Pending Gran % Pending Lymphocytes % Pending Monocytes % Pending Eosinophils % Pending Basophils % Pending Absolute Granulocytes Pending Absolute Lymphocytes Pending Absolute Monocytes Pending Absolute Eosinophils Pending Absolute Basophils Pending Toxicology Tacrolimus Pending
--- NOTE | 2017-10-05 10:06 | PN- Pulmonary ---
Subjective HPI/Critical Care Issues: Sleeping comfortably wbc increasing Stable Off eloquis On heparin drip Objective Current Medications: Current Medications Sig/Ira Start time Last Medication Dose Route Stop Time Status Admin Acetaminophen 650 MG .STK-MED ONE 10/04 2124 DC PO 10/04 2125 Acetaminophen 650 MG Q6P PRN 09/22 1600 AC 10/04 PO 2125 Amiodarone HCl 100 MG DAILY 09/23 1000 AC 10/05 PO 0935 Benzocaine/Menthol 1 CELIA Q2P PRN 09/30 0100 AC 09/30 PO 0118 Calcium/Vitamin D 500 MG DAILY 09/22 1929 AC 10/05 PO 0935 Daptomycin 500 MG Q24H 09/28 1830 AC 10/04 Sodium Chloride 50 ML IV 1737 Epoetin Onofre 20,000 U ONCE A WEEK 09/29 1030 AC 09/29 SC 1139 Escitalopram Oxalate 10 MG DAILY 09/23 1000 AC 10/05 PO 0935 Heparin Sodium 3,707 UNIT BOLUS ONE 10/05 0347 DC 10/05 (Porcine) IV 10/05 0348 0637 Heparin Sodium 25,000 UNIT Q24H 10/04 1700 AC 10/04 (Porcine) IV 10/06 0000 1731 Sodium Chloride 500 ML Insulin Aspart 0 TIDAC/HS 09/28 1700 AC 10/05 SC 0809 Insulin Detemir 20 UNITS 8AM 09/30 0800 AC 10/05 SC 0811 Lidocaine/Diphenhydr/ 5 ML Q4-6 PRN PRN 09/30 1530 AC 10/03 Alum/Mg/Simeth PO 2130 Metoprolol Succinate 12.5 MG DAILY 09/23 1000 AC 10/05 PO 0935 Mycophenolate Mofetil 500 MG BID 10/04 1000 AC 10/04 PO 2122 Omeprazole 20 MG DAILY AC 10/03 1334 AC 10/05 PO 0637 Tacrolimus 0.75 MG 0810/01 0800 AC 10/05 PO 0809 Tacrolimus 2 MG 0800 09/30 0800 AC 10/05 PO 0809 Tramadol HCl 50 MG .STK-MED ONE 10/05 0027 DC PO 10/05 0028 Tramadol HCl 25 MG ONCE ONE 10/04 2300 DC 10/05 PO 10/04 2301 0040 Vital Signs & I&O Last 24 Hrs of Vitals and I&O: Laboratory Tests 10/05 10/04 5674 3779 Chemistry Sodium (137 - 145 mmol/L) 142 141 Potassium (3.5 - 5.1 mmol/L) 4.9 4.5 Chloride (98 - 107 mmol/L) 104 107 Carbon Dioxide (22 - 30 mmol/L) 27 25 Anion Gap (5 - 16) 11 10 BUN (9 - 20 mg/dL) 24 H 24 H Creatinine (0.7 - 1.2 mg/dL) 1.6 H 1.4 H Estimated GFR (>60 ml/min) 43 L 50 L BUN/Creatinine Ratio (7 - 25 %) 15.0 17.1 Magnesium (1.6 - 2.3 mg/dL) 1.9 1.9 Creatine Kinase (55 - 170 U/L) 109 Albumin (3.5 - 5.0 g/dL) 3.1 L Hematology CBC w Diff MAN DIFF ORDERED MAN DIFF ORDERED WBC (4.8 - 10.8 /CUMM) 13.2 H 8.0 RBC (4.70 - 6.10 /CUMM) 3.30 L 3.21 L Hgb (14.0 - 18.0 G/DL) 9.1 L 8.8 L Hct (42 - 52 %) 27.7 L 27.0 L MCV (80.0 - 94.0 FL) 84.0 84.0 MCH (27.0 - 31.0 PG) 27.5 27.4 MCHC (33.0 - 37.0 G/DL) 32.7 L 32.6 L RDW (11.5 - 14.5 %) 14.5 14.3 Plt Count (130 - 400 /CUMM) 327 318 MPV (7.4 - 10.4 FL) 8.5 8.0 Gran % (42.2 - 75.2 %) 79.1 H 74.2 Lymphocytes % (20.5 - 51.1 %) 9.2 L 11.8 L Monocytes % (1.7 - 9.3 %) 9.9 H 11.6 H Eosinophils % (0 - 5 %) 1.3 2.0 Basophils % (0.0 - 2.0 %) 0.5 0.4 Absolute Granulocytes (1.4 - 6.5 /CUMM) 10.4 H 5.9 Segmented Neutrophils (42.2 - 75.2 %) 69 63 Band Neutrophils (0.0 - 5.0 %) 10 H 10 H Absolute Lymphocytes (1.2 - 3.4 /CUMM) 1.2 0.9 L Lymphocytes (20.5 - 51.1 %) 9 L 8 L Monocytes (1.7 - 9.3 %) 8 16 H Absolute Monocytes (0.10 - 0.60 /CUMM) 1.3 H 0.9 H Eosinophils (0 - 5.0 %) 1 1 Absolute Eosinophils (0.0 - 0.7 /CUMM) 0.2 0.2 Absolute Basophils (0.0 - 0.2 /CUMM) 0.1 0 Metamyelocytes (0.0 - 1.0 %) 2 H Myelocytes (0 - 0 %) 3 H Nucleated RBCs (0.0 - 0.0 /100WBC) 2 H 3 H Platelet Estimate (ADEQUATE) VERIFIED BY SMEAR ADEQUATE Polychromasia 1+ Hypochromic-Microcytic 1+ Poikilocytosis 2+ Anisocytosis 2+ 1+ Toxicology Tacrolimus (() mcg/L) Pending 7.7 10/04 10/03 0030 1400 Coagulation APTT (25 - 37 SEC) 46 H Hematology ESR Westergren (0 - 10 MM) 49 H Microbiology Date/Time Procedure - Status Source Growth 10/02 1020 Clostridium difficile Toxin A & B - COMP STOOL Vital Signs Date Time Temp Pulse Resp B/P B/P Pulse O2 O2 Flow FiO2 Mean Ox Delivery Rate 10/05 0935 98.3 64 20 112/82 10/05 0935 98.3 64 20 112/82 10/05 0705 98.3 64 0 112/82 94 Room Air 10/04 1415 97.8 67 20 132/64 94 Room Air Intake & Output 10/05 1600 10/05 0800 10/05 0000 Intake Total 110 575 Output Total 900 200 Balance -790 375 Intake, IV 10 200 Intake, Oral 100 375 Output, Urine 900 200 Impression/Plan Impression/Plan Impression/Plan: Head: atraumatic, normal appearance Eyes: Bilateral: normal appearance, PERRL, EOMI. Ears, Nose, Throat: normal pharynx, normal ENT inspection, hearing grossly normal Neck: normal inspection, supple, full range of motion, no midline tenderness Respiratory: normal breath sounds, chest non-tender, no respiratory distress, quiet respiration, lungs clear Cardiovascular: normal peripheral pulses, irregularly irregular, norml femoral pulses equa Peripheral Pulses: 4+ carotid (R), 4+ carotid (L) Gastrointestinal: normal bowel sounds, soft, non-tender, no organomegaly Back: normal inspection, normal range of motion, no vertebral tenderness Extremities: no edema, pelvis stable,s/p debridement and in dressing Neurologic/Psych: no motor/sensory deficits, awake, alert, oriented x 2 Confused at times and easily redirectable , normal mood/affect, 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 Lymphatic: no anterior cervical fortunato avf intact IMPRESSION This is a gentleman with s/p renal transplant with infected toe with osteo s/p surg * ON rx for - Infected foot with fever on admission MRSA sepsis- in a pt who is immunosupp (recent toe amputation with osteo, s/p complete debridement of osteo with toe amputation and wound closure on 09/09/17) now - MRSA infection and resolving sepsis, now s/p angioplasty of peroneal artery and wound redebridement of the foot. 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 No sig endocarditis noted in junior, now with poor wound healing and ongoing eval for further plan * Improving leukopenia and anemia - pt on immunosupp rx, was on cell cept which is held and Tacrolimus dose is reduced, normal flow. - was on daily neupogen 300 mcg, and CMV viral load neg * Sore throat now with some evidence of pharyngitis nil acute so far, However barium esophagogram did show evidence of esophagitis and a prob stricture in the lower esophagus, GI eval noted * Diarrhea has improved * REsolved delirium without Sig neuro deficit * MRI showing very small punctate lesions prob ateromatous small emboli, on anticoag, and statin * PT with Pafib in Sinus and sig atheromatous aorta, small pfo, - on eloquis * Prolonged qtc, previous low mag need to continue to monitor * REsolving SHIRA with CKD s/p renal transplant, creat now 1.6 (recent contrast use) * DM insulin requiring endo onboard * PVD, previous history of stoke, and previous toe amputation, now angioplasty * Previous secondary hyperparathyroid. Sig autonomic dysfunction was on fludocortisone * Pafib on eliquis (in sinus on amiodarone) (being dosed for renal function) now held on heparin * Depression and anxiety * Peripheral neuropathy * Mild ekg changes with slight elevated troponin stable REC * COnt abx * Dc neupogen and observe * COnt current dose of tacrolimus, check level daily for now * mycophenolate 500 bid from today * Prob egd d/w Dr. lee\ * iv heparin till all the procedures are done * WOund vac * Daily tacrolimus level and will adjust dose subsequently * ID and Podiatry, vascular, Cardio,Endo and renal following * EKG monitoring per cardio * Cont metoprolol, statin, amio, antidepressant lexapro * Keep sugars less than 150 * Once ambulatory start his home dose of fludrocortizone
--- NOTE | 2017-10-05 11:49 | PN- Infect Dx ---
Subjective Subjective: Afebrile. He notes improvement in his odynophagia and diarrhea but still reports an inability to control his bowel movements. He has minimal pain in the right foot. Objective Last 24 Hrs of Vital Signs/I&O Vital Signs Date Time Temp Pulse Resp B/P B/P Pulse O2 O2 Flow FiO2 Mean Ox Delivery Rate 10/05 0935 98.3 64 20 112/82 10/05 0935 98.3 64 20 112/82 10/05 0705 98.3 64 0 112/82 94 Room Air 10/04 1415 97.8 67 20 132/64 94 Room Air Intake & Output 10/05 1600 10/05 0800 10/05 0000 Intake Total 110 575 Output Total 900 200 Balance -790 375 Intake, IV 10 200 Intake, Oral 100 375 Output, Urine 900 200 Physical Exam Other Physical Findings: He appears comfortable in no acute distress Lungs are clear Heart regular rhythm with a 1/6 systolic ejection murmur Abdomen is soft, nontender with positive bowel sounds Extremities right foot dressing intact, with wound VAC in place Results Last 24 Hours of Lab Results: Laboratory Tests 10/05 0647 Chemistry Sodium (137 - 145 mmol/L) 142 Potassium (3.5 - 5.1 mmol/L) 4.9 Chloride (98 - 107 mmol/L) 104 Carbon Dioxide (22 - 30 mmol/L) 27 Anion Gap (5 - 16) 11 BUN (9 - 20 mg/dL) 24 H Creatinine (0.7 - 1.2 mg/dL) 1.6 H Estimated GFR (>60 ml/min) 43 L BUN/Creatinine Ratio (7 - 25 %) 15.0 Magnesium (1.6 - 2.3 mg/dL) 1.9 Creatine Kinase (55 - 170 U/L) 109 Albumin (3.5 - 5.0 g/dL) 3.1 L Hematology CBC w Diff MAN DIFF ORDERED WBC (4.8 - 10.8 /CUMM) 13.2 H RBC (4.70 - 6.10 /CUMM) 3.30 L Hgb (14.0 - 18.0 G/DL) 9.1 L Hct (42 - 52 %) 27.7 L MCV (80.0 - 94.0 FL) 84.0 MCH (27.0 - 31.0 PG) 27.5 MCHC (33.0 - 37.0 G/DL) 32.7 L RDW (11.5 - 14.5 %) 14.5 Plt Count (130 - 400 /CUMM) 327 MPV (7.4 - 10.4 FL) 8.5 Gran % (42.2 - 75.2 %) 79.1 H Lymphocytes % (20.5 - 51.1 %) 9.2 L Monocytes % (1.7 - 9.3 %) 9.9 H Eosinophils % (0 - 5 %) 1.3 Basophils % (0.0 - 2.0 %) 0.5 Absolute Granulocytes (1.4 - 6.5 /CUMM) 10.4 H Segmented Neutrophils (42.2 - 75.2 %) 69 Band Neutrophils (0.0 - 5.0 %) 10 H Absolute Lymphocytes (1.2 - 3.4 /CUMM) 1.2 Lymphocytes (20.5 - 51.1 %) 9 L Monocytes (1.7 - 9.3 %) 8 Absolute Monocytes (0.10 - 0.60 /CUMM) 1.3 H Eosinophils (0 - 5.0 %) 1 Absolute Eosinophils (0.0 - 0.7 /CUMM) 0.2 Absolute Basophils (0.0 - 0.2 /CUMM) 0.1 Myelocytes (0 - 0 %) 3 H Nucleated RBCs (0.0 - 0.0 /100WBC) 2 H Platelet Estimate (ADEQUATE) VERIFIED BY SMEAR Polychromasia 1+ Anisocytosis 2+ Toxicology Tacrolimus Pending Last 24 Hours of Joel Results: No new cultures Assessment/Plan ID Impression: Continues to improve, with his temperatures remaining normal and his white blood cell count now elevated, presumably secondary to the Neupogen, which was discontinued yesterday, on Daptomycin Day 13 of treatment for MRSA sepsis/ osteomyelitis of the right foot status post revisional partial first ray resection, placement of a wound VAC and right peroneal artery angioplasty 8 days ago. The viability of his right foot is of concern, despite the recent angioplasty, given evidence of persistent ischemia per Podiatry. His creatinine is slightly increased and he remains above his baseline. His odynophagia is improving but he is scheduled for an upper endoscopy in the a.m. Suggestion: 1. Vascular surgery follow-up 2. Await Pro-Line placement, scheduled for the a.m. 3. Await upper endoscopy per GI 4. Further evaluation regarding his fecal incontinence per GI 5. Continue Daptomycin
--- NOTE | 2017-10-05 12:35 | PN- Nephrology ---
Assessment/Plan Nephrology Assessment: 1. CKD stage III status post DDKT 2014 2. SHIRA - significantly improved likely due to better hydration although contrast nephropathy and/or vancomycin toxicity may have played a role; serum creatinine up slightly again today to 1.6 3. 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 Necrotic wound/osteomyelitis right foot; s/p I&D, revision partial first ray resection 5. Episodic confusion - MRI --> ?possible multiple microemboli -appears to have resolved 6. Leukopenia/neutropenia - now with leukocytosis and off Neupogen 7. Anemia - on weekly Procrit 8. Odynophagia - improved; barium swallow--> possible esophagitis in the proximal thoracic esophagus as well as a circumferential stricture at the GE junction and mild esophageal dysmotility 9. Diarrhea with negative C. difficile Suggestion: 1. Would continue current dose of tacrolimus and MMF with plans to increase his MMF back to his original dose in a few days. Would like to keep his tacrolimus dose of 2.75 mg per day unless his level keeps falling in which case he can be put back up to 3.25 mg per day 2. Aggressive oral hydration stressed 3. For EGD tomorrow 4. Vascular surgery and GI following 5. Antibiotic therapy per ID Subjective Subjective: Continues to feel reasonably well. No pain or shortness of breath. Stools are still loose but apparently better. Throat/swallowing pain essentially resolved. For EGD tomorrow. Objective Vital Signs and I&Os Vital Signs Date Time Temp Pulse Resp B/P B/P Pulse O2 O2 Flow FiO2 Mean Ox Delivery Rate 10/05 0935 98.3 64 20 112/82 10/05 0935 98.3 64 20 112/82 10/05 0705 98.3 64 0 112/82 94 Room Air / 1415 97.8 67 20 132/64 94 Room Air Intake & Output 10/05 1600 10/05 0400 10/04 1600 10/04 0400 10/03 1600 10/03 0400 Intake Total 963 008 4699 300 800 700 Output Total 992 615 8206 300 875 575 Balance -790 375 -310 0 -75 125 Intake, IV 10 200 80 Intake, Oral 180 813 9031 300 800 620 Number 1 1 0 Bowel Movements Output, Urine 890 351 1098 300 875 575 Patient 204 lb Weight Physical Exam: General: Well-developed white male in NAD Skin: No rash or jaundice; multiple senile keratoses; no petechiae or splinter hemorrhages HEENT: Conjunctivae pale, sclerae anicteric, mucous membranes moist Neck: Without masses or thyromegaly, no supraclavicular or cervical adenopathy Chest: Clear to P&A Heart: Regular rate and rhythm without S3 or rub Abdomen: Soft and nontender without palpable masses or organomegaly Extremities: Without cyanosis or edema; right foot dressing intact Neuro: Awake, alert and oriented, no focal findings, no asterixis or myoclonus Results Pertinent Lab Results: Laboratory Tests 10/05 10/05 1155 0647 Chemistry Sodium (137 - 145 mmol/L) 142 Potassium (3.5 - 5.1 mmol/L) 4.9 Chloride (98 - 107 mmol/L) 104 Carbon Dioxide (22 - 30 mmol/L) 27 Anion Gap (5 - 16) 11 BUN (9 - 20 mg/dL) 24 H Creatinine (0.7 - 1.2 mg/dL) 1.6 H Estimated GFR (>60 ml/min) 43 L BUN/Creatinine Ratio (7 - 25 %) 15.0 Magnesium (1.6 - 2.3 mg/dL) 1.9 Creatine Kinase (55 - 170 U/L) 109 Albumin (3.5 - 5.0 g/dL) 3.1 L Coagulation APTT Pending Hematology CBC w Diff MAN DIFF ORDERED WBC (4.8 - 10.8 /CUMM) 13.2 H RBC (4.70 - 6.10 /CUMM) 3.30 L Hgb (14.0 - 18.0 G/DL) 9.1 L Hct (42 - 52 %) 27.7 L MCV (80.0 - 94.0 FL) 84.0 MCH (27.0 - 31.0 PG) 27.5 MCHC (33.0 - 37.0 G/DL) 32.7 L RDW (11.5 - 14.5 %) 14.5 Plt Count (130 - 400 /CUMM) 327 MPV (7.4 - 10.4 FL) 8.5 Gran % (42.2 - 75.2 %) 79.1 H Lymphocytes % (20.5 - 51.1 %) 9.2 L Monocytes % (1.7 - 9.3 %) 9.9 H Eosinophils % (0 - 5 %) 1.3 Basophils % (0.0 - 2.0 %) 0.5 Absolute Granulocytes (1.4 - 6.5 /CUMM) 10.4 H Segmented Neutrophils (42.2 - 75.2 %) 69 Band Neutrophils (0.0 - 5.0 %) 10 H Absolute Lymphocytes (1.2 - 3.4 /CUMM) 1.2 Lymphocytes (20.5 - 51.1 %) 9 L Monocytes (1.7 - 9.3 %) 8 Absolute Monocytes (0.10 - 0.60 /CUMM) 1.3 H Eosinophils (0 - 5.0 %) 1 Absolute Eosinophils (0.0 - 0.7 /CUMM) 0.2 Absolute Basophils (0.0 - 0.2 /CUMM) 0.1 Myelocytes (0 - 0 %) 3 H Nucleated RBCs (0.0 - 0.0 /100WBC) 2 H Platelet Estimate (ADEQUATE) VERIFIED BY SMEAR Polychromasia 1+ Anisocytosis 2+ Toxicology Tacrolimus Pending 10/04 10/04 10/03 0630 0030 1400 Chemistry Sodium (137 - 145 mmol/L) 141 Potassium (3.5 - 5.1 mmol/L) 4.5 Chloride (98 - 107 mmol/L) 107 Carbon Dioxide (22 - 30 mmol/L) 25 Anion Gap (5 - 16) 10 BUN (9 - 20 mg/dL) 24 H Creatinine (0.7 - 1.2 mg/dL) 1.4 H Estimated GFR (>60 ml/min) 50 L BUN/Creatinine Ratio (7 - 25 %) 17.1 Magnesium (1.6 - 2.3 mg/dL) 1.9 Coagulation APTT (25 - 37 SEC) 46 H Hematology CBC w Diff MAN DIFF ORDERED WBC (4.8 - 10.8 /CUMM) 8.0 RBC (4.70 - 6.10 /CUMM) 3.21 L Hgb (14.0 - 18.0 G/DL) 8.8 L Hct (42 - 52 %) 27.0 L MCV (80.0 - 94.0 FL) 84.0 MCH (27.0 - 31.0 PG) 27.4 MCHC (33.0 - 37.0 G/DL) 32.6 L RDW (11.5 - 14.5 %) 14.3 Plt Count (130 - 400 /CUMM) 318 MPV (7.4 - 10.4 FL) 8.0 Gran % (42.2 - 75.2 %) 74.2 Lymphocytes % (20.5 - 51.1 %) 11.8 L Monocytes % (1.7 - 9.3 %) 11.6 H Eosinophils % (0 - 5 %) 2.0 Basophils % (0.0 - 2.0 %) 0.4 Absolute Granulocytes (1.4 - 6.5 /CUMM) 5.9 Segmented Neutrophils (42.2 - 75.2 %) 63 Band Neutrophils (0.0 - 5.0 %) 10 H Absolute Lymphocytes (1.2 - 3.4 /CUMM) 0.9 L Lymphocytes (20.5 - 51.1 %) 8 L Monocytes (1.7 - 9.3 %) 16 H Absolute Monocytes (0.10 - 0.60 /CUMM) 0.9 H Eosinophils (0 - 5.0 %) 1 Absolute Eosinophils (0.0 - 0.7 /CUMM) 0.2 Absolute Basophils (0.0 - 0.2 /CUMM) 0 Metamyelocytes (0.0 - 1.0 %) 2 H Nucleated RBCs (0.0 - 0.0 /100WBC) 3 H Platelet Estimate (ADEQUATE) ADEQUATE Hypochromic-Microcytic 1+ Poikilocytosis 2+ Anisocytosis 1+ ESR Westergren (0 - 10 MM) 49 H Toxicology Tacrolimus (() mcg/L) 7.7 04/02 0658 Chemistry Sodium (137 - 145 mmol/L) 141 Potassium (3.5 - 5.1 mmol/L) 4.8 Chloride (98 - 107 mmol/L) 106 Carbon Dioxide (22 - 30 mmol/L) 23 Anion Gap (5 - 16) 11 BUN (9 - 20 mg/dL) 27 H Creatinine (0.7 - 1.2 mg/dL) 1.5 H Estimated GFR (>60 ml/min) 46 L BUN/Creatinine Ratio (7 - 25 %) 18.0 Magnesium (1.6 - 2.3 mg/dL) 1.7 C-Reactive Prot, Quant (<1.0 mg/dL) > 9.0 H Hematology CBC w Diff MAN DIFF ORDERED WBC (4.8 - 10.8 /CUMM) 5.3 RBC (4.70 - 6.10 /CUMM) 3.12 L Hgb (14.0 - 18.0 G/DL) 8.5 L Hct (42 - 52 %) 26.2 L MCV (80.0 - 94.0 FL) 84.0 MCH (27.0 - 31.0 PG) 27.4 MCHC (33.0 - 37.0 G/DL) 32.6 L RDW (11.5 - 14.5 %) 14.3 Plt Count (130 - 400 /CUMM) 321 MPV (7.4 - 10.4 FL) 7.9 Gran % (42.2 - 75.2 %) 60.1 Lymphocytes % (20.5 - 51.1 %) 15.6 L Monocytes % (1.7 - 9.3 %) 20.8 H Eosinophils % (0 - 5 %) 3.2 Basophils % (0.0 - 2.0 %) 0.3 Absolute Granulocytes (1.4 - 6.5 /CUMM) 3.2 Segmented Neutrophils (42.2 - 75.2 %) 50 Band Neutrophils (0.0 - 5.0 %) 12 H Absolute Lymphocytes (1.2 - 3.4 /CUMM) 0.8 L Lymphocytes (20.5 - 51.1 %) 11 L Monocytes (1.7 - 9.3 %) 19 H Absolute Monocytes (0.10 - 0.60 /CUMM) 1.1 H Eosinophils (0 - 5.0 %) 2 Absolute Eosinophils (0.0 - 0.7 /CUMM) 0.2 Absolute Basophils (0.0 - 0.2 /CUMM) 0 Metamyelocytes (0.0 - 1.0 %) 2 H Myelocytes (0 - 0 %) 4 H Nucleated RBCs (0.0 - 0.0 /100WBC) 1 H Platelet Estimate (ADEQUATE) ADEQUATE Polychromasia 1+ Anisocytosis 1+ Ovalocytes FEW Toxicology Tacrolimus (() mcg/L) 10.6
[2017-10-05 13:30] LABS: PTT 82 SEC (25-37)
[2017-10-05 13:51] VITALS: BP 112/70
--- NOTE | 2017-10-05 17:15 | PN- Vascular Surgery ---
Surgical Brief Attending Note Brief Attending Note: At this time, there is no further vascular surgery interventions planned. After the last angiogram, the patient has adequate blood flow all the way down to the ankle. Currently, he has severe small vessel disease of the foot. After speaking with Dr. Dye, the plan is to continue with wound care at this time. Thank you
[2017-10-05 22:24] VITALS: BP 126/78
[2017-10-06 01:33] LABS: PTT 79 SEC (25-37)
[2017-10-06 06:47] VITALS: BP 118/76
[2017-10-06 08:07] LABS: ABSOLUTE BASOPHIL COUNT 0.1 /CUMM (0.0-0.2); ABSOLUTE EOSINOPHIL COUNT 0.1 /CUMM (0.0-0.7); ABSOLUTE GRANULOCYTE CT 9.3 /CUMM (1.4-6.5); ABSOLUTE LYMPH COUNT 1.3 /CUMM (1.2-3.4); ABSOLUTE MONOCYTE COUNT 0.9 /CUMM (0.10-0.60); BASOPHIL % 0.6 % (0.0-2.0); EOSINOPHIL % 1.2 % (0-5); GRANULOCYTE % 79.7 % (42.2-75.2); HEMATOCRIT 27.3 % (42-52); MEAN CORPUSCULAR HGB 27.6 PG (27.0-31.0); MEAN CORPUSCULAR HGB CONC 32.9 G/DL (33.0-37.0); MEAN CORPUSCULAR VOLUME 83.8 FL (80.0-94.0); MEAN PLATELET VOLUME 8.1 FL (7.4-10.4); PLATELET COUNT 292 /CUMM (130-400); RBC DISTRIBUTION WIDTH 14.3 % (11.5-14.5); RED BLOOD CELL CT 3.26 /CUMM (4.70-6.10); WHITE BLOOD CELL COUNT 11.7 /CUMM (4.8-10.8)
[2017-10-06 08:16] LABS: PT 16.3 SEC (9.4-12.5)
--- NOTE | 2017-10-06 08:25 | PN- Diabetes ---
Assessment/Plan Diabetes Assessment: Patient is a 71-year-old male with a PMH significant for ESRD status post renal transplant on tacrolimus and CellCept, paroxysmal atrial fibrillation on Eliquis , HTN, HLD, CVA, DM type 2, with recent admission to [facility] for osteomyelitis, status post amputation of the toes, was admitted for chronic right foot infection. He underwent angiogram, angioplasty of right peroneal artery, right foot procedure and wound vac placement on 09/27/2017. He had TESS done on 09/28/2017. Currently he is on Levemir 20 units daily, Novolog coverage before meals and Novolog coverage at bedtime. His FSGs were 152, 315, 167, 151 and 168. Patient has been kept NPO after midnight for procedure . In addition, he was put on D51/2 NS at 50 ml/hour. He was covered by Novolog coverage every 4 hours. His FSGs were 262, 225, 206 and 224. Plan: ---continue the current Levemir 20 units daily. ---while he is NPO and is on current IVF, please cover him Novolog every 4 hours ( FSG < 150, no coverage; FSG 150-200, 2 units; FSG 200-250, 4 units; FSG 251- 300, 6 units; FSG 301-350, 8 units; FSG 351-400, 9 units; > 400, 10 units ); ---after he is back from procedure abd when he is ready to eat, IVF and Novolog coverage every 4 hours will be discontinued, he will be on previous Novolog coverage before meals and Novolog coverage at bedtime; ---monitor FSGs. will follow. Subjective Subjective: He feels fine. Objective Last 24 Hrs of Vital Signs/I&O Vital Signs Date Time Temp Pulse Resp B/P B/P Pulse O2 O2 Flow FiO2 Mean Ox Delivery Rate 10/06 0647 97.7 61 16 118/76 97 10/05 2224 98.0 65 20 126/78 98 10/05 1351 98.0 64 18 112/70 96 Room Air 10/05 0935 98.3 64 20 112/82 10/05 0935 98.3 64 20 112/82 Intake & Output 10/06 1600 10/06 0800 10/06 0000 Intake Total 600 330 Output Total 850 650 Balance -250 -320 Intake, IV 540 90 Intake, Oral 60 240 Output, Urine 850 650 Patient 220 lb Weight Findings Pertinent Lab/Joel Results: Laboratory Tests 10/06 10/06 10/05 0650 0016 1155 Chemistry Sodium Pending Potassium Pending Chloride Pending Carbon Dioxide Pending Anion Gap Pending BUN Pending Creatinine Pending BUN/Creatinine Ratio Pending Magnesium Pending Coagulation PT (9.4 - 12.5 SEC) 16.3 H INR (0.90 - 1.17) 1.49 H APTT (25 - 37 SEC) 79 H 82 H Hematology CBC w Diff Pending WBC Pending RBC Pending Hgb Pending Hct Pending MCV Pending MCH Pending MCHC Pending RDW Pending Plt Count Pending MPV Pending Toxicology Tacrolimus Pending
--- NOTE | 2017-10-06 08:58 | PN- Housestaff ---
Subjective Follow-up For: Osteomyelitis Positive blood cultures New left bundle branch block SHIRA in Renal transplant patient Neuropenia AMS Tele-Events Since Last Visit: NSR 6209 Subjective: No acute events overnight. States that his throat pain is better. States that his loose stools has improved from yesterday. Review of Systems Constitutional: Reports: see HPI. Objective Last 24 Hrs of Vital Signs/I&O Vital Signs Date Time Temp Pulse Resp B/P B/P Pulse O2 O2 Flow FiO2 Mean Ox Delivery Rate 10/06 1016 64 18 110/64 10/06 1014 64 18 110/64 10/06 0647 97.7 61 16 118/76 97 10/05 2224 98.0 65 20 126/78 98 Intake & Output 10/06 1600 10/06 0800 10/06 0000 Intake Total 378 600 330 Output Total 600 850 650 Balance -222 -250 -320 Intake, IV 258 540 90 Intake, Oral 120 60 240 Output, Urine 600 850 650 Patient 220 lb Weight Physical Exam General Appearance: Alert, Oriented X3, Cooperative, No Acute Distress Cardiovascular: Regular Rate, Normal S1, Normal S2 Lungs: Clear to Auscultation, Normal Air Movement Abdomen: Normal Bowel Sounds, Soft, No Tenderness Extremities: trace right lower extremity edema with wound vac Vascular: 2+ right radial pulse, left AV fistula Current Medications: Current Medications Sig/Ira Start time Last Medication Dose Route Stop Time Status Admin Acetaminophen 650 MG Q6P PRN 09/22 1600 AC 10/04 PO 2125 Amiodarone HCl 100 MG DAILY 09/23 1000 AC 10/06 PO 1016 Benzocaine/Menthol 1 CELIA Q2P PRN 09/30 0100 AC 09/30 PO 0118 Calcium/Vitamin D 500 MG DAILY 09/22 1929 AC 10/06 PO 1010 Chlorhexidine 1 GM .STK-MED ONE 10/06 1413 DC Gluconate TOP 10/06 1414 Daptomycin 500 MG Q24H 09/28 1830 AC 10/05 Sodium Chloride 50 ML IV 1817 Dextrose/Sodium 1,000 ML Q20H 10/06 0000 AC 10/06 Chloride IV 0039 Epoetin Onofre 20,000 U ONCE A WEEK 09/29 1030 AC 10/06 SC 1020 Escitalopram Oxalate 10 MG DAILY 09/23 1000 AC 10/06 PO 1010 Heparin Sodium 0 .STK-MED ONE 10/06 1158 DC (Porcine) IV Heparin Sodium 25,000 UNIT Q24H 10/04 1700 DC 10/05 (Porcine) IV 10/06 0000 1652 Sodium Chloride 500 ML Insulin Aspart 0 Q4 10/06 0600 AC 10/06 SC 1018 Insulin Aspart 0 Q6 10/06 0005 DC SC Insulin Aspart 0 TIDAC/HS 09/28 1700 DC 10/05 SC 10/06 0000 1650 Insulin Detemir 20 UNITS 8AM 09/30 0800 AC 10/06 SC 0807 Insulin Human Regular 0 Q6 10/06 0037 DC 10/06 SC 0039 Lidocaine 0 .STK-MED ONE 10/06 1158 DC .ROUTE Lidocaine/Diphenhydr/ 5 ML Q4-6 PRN PRN 09/30 1530 AC 10/03 Alum/Mg/Simeth PO 2130 Lidocaine/Epinephrine 0 .STK-MED ONE 10/06 1158 DC .ROUTE Magnesium Sulfate 1 GM ONCE ONE 10/06 1430 AC Dextrose/Water 100 ML IV 10/06 1829 Magnesium Sulfate 1 GM ONCE ONE 10/05 1115 DC 10/05 Dextrose/Water 100 ML IV 10/05 1514 1409 Metoprolol Succinate 12.5 MG DAILY 09/23 1000 AC 10/06 PO 1014 Mycophenolate Mofetil 500 MG BID 10/04 1000 AC 10/06 PO 1017 Omeprazole 20 MG DAILY AC 10/03 1334 AC 10/06 PO 0625 Tacrolimus 0.75 MG 0800 10/01 0800 AC 10/06 PO 0809 Tacrolimus 2 MG 0800 09/30 0800 AC 10/06 PO 0835 Tramadol HCl 25 MG ONE TIME ONE 10/06 0030 [place] 10/06 PO 10/06 0031 0043 Last 24 Hrs of Lab/Joel Results Last 24 Hrs of Labs/Mics: Laboratory Tests 10/06/17 1000: Tacrolimus Cancelled 10/06/17 0650: Anion Gap 10, Estimated GFR 50 L, BUN/Creatinine Ratio 17.1, Magnesium 1.9, Vitamin B12 > 1000 H, TSH 1.460, PT 16.3 H, INR 1.49 H, CBC w Diff MAN DIFF ORDERED, RBC 3.26 L, MCV 83.8, MCH 27.6, MCHC 32.9 L, RDW 14.3, MPV 8.1, Gran % 79.7 H, Lymphocytes % 10.8 L, Monocytes % 7.7, Eosinophils % 1.2, Basophils % 0.6, Absolute Granulocytes 9.3 H, Segmented Neutrophils 63, Band Neutrophils 13 H, Absolute Lymphocytes 1.3, Lymphocytes 9 L, Monocytes 9, Absolute Monocytes 0.9 H, Eosinophils 2, Absolute Eosinophils 0.1, Absolute Basophils 0.1, Metamyelocytes 2 H, Myelocytes 2 H, Platelet Estimate ADEQUATE, Polychromasia 1+, Hypochromic-Microcytic 1+, Poikilocytosis 2+, Anisocytosis 2+, Ovalocytes 2+, Tacrolimus Pending 10/06/17 0016: APTT 79 H Assessment/Plan Assessment: A: Patient is a 71-year-old male with a PMH significant for ESRD status post renal transplant on tacrolimus and CellCept, paroxysmal atrial fibrillation on Eliquis , HTN, HLD, CVA, DM, with recent admission to [facility] for osteomyelitis , 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 Problem list #Sepsis 2/2 to R foot osteomyelitils WBC 2.1 -> 5.3 -> 8.0 -> 13.2 -> 11.7 CRP >9 ESR 72 -> 49 Blood cultures + for MRSA Surgical cultures + for MRSA Arterial Doppler: Decreased flow is noted within the right anterior tibial artery, lower part of the left popliteal, and posterior tibial, anterior tibial and dorsalis pedis arteries. Repeat foot xr: post surgical changes TESS negative for vegetation but small PFO and atherosclerotic disease MRI + for foci most liekly embolic in origin and favoring bland > septic origin Baseline CPK 81, repeat 109 -s/p proline and EGD -Restart Eliquis after procedures -keep mg >2 - switched to daptomycin from vanco. de'ed statin due to risk of rhabdo. #neurtopenia + anemia in the setting of ckd s/p renal transplant WBC 1.2 -> 13.2 -> 11.7 Perpherial flow cytometry suggesting BM biopsy for MDS -stopped neupogen as WBC has improved -Continue neutropenic diet and precautions -Follow-up hematology oncology recs #SHIRA on CKD, History of renal transplantation Creatinine 1.4 (baseline 1.2) Tacrolimus level 7.3 -renal function stable increase MMF back up to original dose of 1000 mg BID -stopped fluids -cont mycophenolate 500mg BID today -daily tacrolimus levels -continue reduced dose tacrolimus 2.75 mg daily. increase tacrolimus level back up to 3.5 mg daily if level falls below 7.0. -Follow nephrology recommendations -Continue calcium/vitamin D #sore throat Rapid flu negative Strep throat culture negative CMV negative Barium swallow: 1. Esophageal irregularity,raising the suspicion of subtle esophagitis 2. Circumferential stricture at the GE junction, causing transient obstruction t 3. Mild esophageal dysmotility. -Follow-up EGD results -Outpatient biopsy results -cont magic mouth wash -monitor vitals #continued loose stools - improving C.diff negative x2 cdiff pcr negative -avoid loose stool causing meds such as magox -possibly due to mycophenolate #Altered mental status/hallucinations Sudden onset of hallucinatinations and AMS Head CT negative -much improved after stopping dicyclomine, morphine , burproprion #H/H drop / anemia H/H 7.3 -> 9.0 s/p 1 unit during admission. Folate 12.2, B12 >1000, ferritin >1760, iron 28 -monitor cbc daily -finished folinic acid 25 mg X7 days -cont epo -Continue to monitor #diabetes Maintain blood sugars less than 150 -cont endo recs #New onset left bundle branch block/mild elevated troponins Troponins 0.04, 0.18, 0.13 -Mild elevated troponins likely secondary to infection -Continue to follow cardiology recommendations #Chronic medical problems including PVD, paroxysmal A. fib, HTN, HLD, -Continue metoprolol, amiodarone, escitalopram, bupropion, apixaban, dicyclomine , Maalox, DVT prophylaxis: Restart Eliquis after procedures CODE STATUS: Full code Problem List: 1. Loose stools 2. Sore throat 3. Renal transplant recipient 4. Osteomyelitis Pain Ratin Pain Location: R foot Pain Goal: Pain 4 or less Pain Plan: pain pathway Tomorrow's Labs & Rationales: cbc bep mag tacrolimus
--- NOTE | 2017-10-06 09:14 | PN- Pulmonary ---
Subjective HPI/Critical Care Issues: Doing ok Continues to have mild odynophagia Diarrhea Objective Current Medications: Current Medications Sig/Ira Start time Last Medication Dose Route Stop Time Status Admin Acetaminophen 650 MG Q6P PRN 09/22 1600 AC 10/04 PO 2125 Amiodarone HCl 100 MG DAILY 09/23 1000 AC 10/05 PO 0935 Benzocaine/Menthol 1 CELIA Q2P PRN 09/30 0100 AC 09/30 PO 0118 Calcium/Vitamin D 500 MG DAILY 09/22 1929 AC 10/05 PO 0935 Daptomycin 500 MG Q24H 09/28 1830 AC 10/05 Sodium Chloride 50 ML IV 1817 Dextrose/Sodium 1,000 ML Q20H / 0000 AC 10/06 Chloride IV 0039 Epoetin Onofre 20,000 U ONCE A WEEK 09/29 1030 AC 09/29 [place] 1139 Escitalopram Oxalate 10 MG DAILY 09/23 1000 AC 10/05 PO 0935 Heparin Sodium 25,000 UNIT Q24H 10/04 1700 DC 10/05 (Porcine) IV 10/06 0000 1652 Sodium Chloride 500 ML Insulin Aspart 0 Q4 10/06 0600 AC 10/06 NJ 0631 Insulin Aspart 0 Q6 10/06 0005 DC SC Insulin Aspart 0 .[NPO SCALE] 10/06 0000 CAN SC Insulin Aspart 0 TIDAC/HS 09/28 1700 DC 10/05 NJ 10/06 0000 1650 Insulin Detemir 20 UNITS 8AM 09/30 0800 AC 10/06 SC 0807 Insulin Human Regular 0 Q6 / 0037 DC 10/06 NJ 0039 Lidocaine/Diphenhydr/ 5 ML Q4-6 PRN PRN 09/30 1530 AC 10/03 Alum/Mg/Simeth PO 2130 Magnesium Sulfate 1 GM ONCE ONE 10/05 1115 DC 10/05 Dextrose/Water 100 ML IV 10/05 1514 1409 Metoprolol Succinate 12.5 MG DAILY 09/23 1000 AC 10/05 PO 0935 Mycophenolate Mofetil 500 MG BID 10/04 1000 AC 10/05 PO 2149 Omeprazole 20 MG DAILY AC 10/03 1334 AC 10/06 PO 0625 Tacrolimus 0.75 MG 0800 10/01 0800 AC 10/06 PO 0809 Tacrolimus 2 MG 0800 09/30 0800 AC 10/06 PO 0835 Tramadol HCl 25 MG ONE TIME ONE 10/06 29 DC 10/06 PO 10/06 0031 0043 Vital Signs & I&O Last 24 Hrs of Vitals and I&O: Vital Signs Date Time Temp Pulse Resp B/P B/P Pulse O2 O2 Flow FiO2 Mean Ox Delivery Rate 10/06 0647 97.7 61 16 118/76 97 10/05 2224 98.0 65 20 126/78 98 10/05 1351 98.0 64 18 112/70 96 Room Air 10/05 0935 98.3 64 20 112/82 10/05 0935 98.3 64 20 11282 Intake & Output 10/06 1600 10/06 0800 10/06 0000 Intake Total 600 330 Output Total 850 650 Balance -250 -320 Intake, IV 540 90 Intake, Oral 60 240 Output, Urine 850 650 Patient 220 lb Weight Impression/Plan Impression/Plan Impression/Plan: Head: atraumatic, normal appearance Eyes: Bilateral: normal appearance, PERRL, EOMI. Ears, Nose, Throat: normal pharynx, normal ENT inspection, hearing grossly normal Neck: normal inspection, supple, full range of motion, no midline tenderness Respiratory: normal breath sounds, chest non-tender, no respiratory distress, quiet respiration, lungs clear Cardiovascular: normal peripheral pulses, irregularly irregular, norml femoral pulses equa Peripheral Pulses: 4+ carotid (R), 4+ carotid (L) Gastrointestinal: normal bowel sounds, soft, non-tender, no organomegaly Back: normal inspection, normal range of motion, no vertebral tenderness Extremities: no edema, pelvis stable,s/p debridement and in dressing Neurologic/Psych: no motor/sensory deficits, awake, alert, oriented x 2 Confused at times and easily redirectable , normal mood/affect, 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 Lymphatic: no anterior cervical fortunato avf intact IMPRESSION This is a gentleman with s/p renal transplant with infected toe with osteo s/p surg * ON rx for - Infected foot with fever on admission MRSA sepsis- in a pt who is immunosupp (recent toe amputation with osteo, s/p complete debridement of osteo with toe amputation and wound closure on 09/09/17) now - MRSA infection and resolving sepsis, now s/p angioplasty of peroneal artery and wound redebridement of the foot. PT now has a wound vac, and on dapto, and would need care home abx. No sig endocarditis noted in junior, now with poor wound healing and ongoing eval for further plan * Improving leukopenia and anemia - pt on immunosupp rx, was on cell cept which is held and Tacrolimus dose is reduced, normal flow. - was on daily neupogen 300 mcg, and CMV viral load neg * Mild odynophagia for endoscopy * Diarrhea has improved * REsolved delirium without Sig neuro deficit * MRI showing very small punctate lesions prob ateromatous small emboli, on anticoag, and statin * PT with Pafib in Sinus and sig atheromatous aorta, small pfo, - on eloquis * Prolonged qtc, previous low mag need to continue to monitor * REsolving SHIRA with CKD s/p renal transplant, creat now 1.6 (recent contrast use) * DM insulin requiring endo onboard * PVD, previous history of stoke, and previous toe amputation, now angioplasty * Previous secondary hyperparathyroid. Sig autonomic dysfunction was on fludocortisone * Pafib on eliquis (in sinus on amiodarone) (being dosed for renal function) now held on heparin * Depression and anxiety * Peripheral neuropathy * Mild ekg changes with slight elevated troponin stable REC * COnt abx * COnt current dose of tacrolimus, check level daily for now * mycophenolate 500 bid * iv heparin till all the procedures are done * WOund vac, vacular note reviewed * Daily tacrolimus level and will adjust dose subsequently * ID and Podiatry, vascular, Cardio,Endo, GI and renal following * EKG monitoring per cardio * Cont metoprolol, statin, amio, antidepressant lexapro * Keep sugars less than 150 * Once ambulatory start his home dose of fludrocortizone
--- NOTE | 2017-10-06 11:16 | PN- Infect Dx ---
Subjective Subjective: Afebrile. His odontophagia has improved. He also notes that his stools are more formed and better controlled. He has mild intermittent discomfort in the right foot. Objective Last 24 Hrs of Vital Signs/I&O Vital Signs Date Time Temp Pulse Resp B/P B/P Pulse O2 O2 Flow FiO2 Mean Ox Delivery Rate 10/06 1016 64 18 110/64 10/06 1014 64 18 110/64 10/06 0647 97.7 61 16 118/76 97 10/05 2224 98.0 65 20 126/78 98 10/05 1351 98.0 64 18 112/70 96 Room Air Intake & Output 10/06 1600 10/06 0800 10/06 0000 Intake Total 600 330 Output Total 850 650 Balance -250 -320 Intake, IV 540 90 Intake, Oral 60 240 Output, Urine 850 650 Patient 220 lb Weight Physical Exam Other Physical Findings: He appears comfortable in no acute distress Lungs are clear Heart regular rhythm with a 1/6 systolic ejection murmur Extremities right foot dressing intact with wound VAC in place Results Last 24 Hours of Lab Results: Laboratory Tests 10/06 10/06 10/05 0650 0016 1155 Chemistry Sodium (137 - 145 mmol/L) 139 Potassium (3.5 - 5.1 mmol/L) 4.7 Chloride (98 - 107 mmol/L) 102 Carbon Dioxide (22 - 30 mmol/L) 27 Anion Gap (5 - 16) 10 BUN (9 - 20 mg/dL) 24 H Creatinine (0.7 - 1.2 mg/dL) 1.4 H Estimated GFR (>60 ml/min) 50 L BUN/Creatinine Ratio (7 - 25 %) 17.1 Magnesium (1.6 - 2.3 mg/dL) 1.9 Vitamin B12 (239 - 931 pg/mL) > 1000 H TSH (0.270 - 4.200 uIU/mL) 1.460 Coagulation PT (9.4 - 12.5 SEC) 16.3 H INR (0.90 - 1.17) 1.49 H APTT (25 - 37 SEC) 79 H 82 H Hematology CBC w Diff MAN DIFF ORDERED WBC (4.8 - 10.8 /CUMM) 11.7 H RBC (4.70 - 6.10 /CUMM) 3.26 L Hgb (14.0 - 18.0 G/DL) 9.0 L Hct (42 - 52 %) 27.3 L MCV (80.0 - 94.0 FL) 83.8 MCH (27.0 - 31.0 PG) 27.6 MCHC (33.0 - 37.0 G/DL) 32.9 L RDW (11.5 - 14.5 %) 14.3 Plt Count (130 - 400 /CUMM) 292 MPV (7.4 - 10.4 FL) 8.1 Gran % (42.2 - 75.2 %) 79.7 H Lymphocytes % (20.5 - 51.1 %) 10.8 L Monocytes % (1.7 - 9.3 %) 7.7 Eosinophils % (0 - 5 %) 1.2 Basophils % (0.0 - 2.0 %) 0.6 Absolute Granulocytes (1.4 - 6.5 /CUMM) 9.3 H Segmented Neutrophils (42.2 - 75.2 %) 63 Band Neutrophils (0.0 - 5.0 %) 13 H Absolute Lymphocytes (1.2 - 3.4 /CUMM) 1.3 Lymphocytes (20.5 - 51.1 %) 9 L Monocytes (1.7 - 9.3 %) 9 Absolute Monocytes (0.10 - 0.60 /CUMM) 0.9 H Eosinophils (0 - 5.0 %) 2 Absolute Eosinophils (0.0 - 0.7 /CUMM) 0.1 Absolute Basophils (0.0 - 0.2 /CUMM) 0.1 Metamyelocytes (0.0 - 1.0 %) 2 H Myelocytes (0 - 0 %) 2 H Platelet Estimate (ADEQUATE) ADEQUATE Polychromasia 1+ Hypochromic-Microcytic 1+ Poikilocytosis 2+ Anisocytosis 2+ Ovalocytes 2+ Toxicology Tacrolimus Pending Last 24 Hours of Joel Results: No recent cultures Assessment/Plan ID Impression: Stable, with temperatures remaining normal and his white blood cell count mildly elevated, likely still secondary to the Neupogen, which was discontinued 2 days ago, on Daptomycin Day 14 of treatment for MRSA sepsis/osteomyelitis of the right foot status post revisional partial first ray resection, placement of a wound VAC and right peroneal artery angioplasty 9 days ago. Vascular surgery follow-up appreciated, with no plans for further intervention at this time. His odynophagia is improving but he is scheduled for an upper endoscopy today. His renal function is stable though remains above his recent baseline. Suggestion: 1. Await Pro-Line placement 2. Await upper endoscopy 3. Continue Daptomycin to plan on a 4-6 week course of treatment 4. Weekly CPK while on Daptomycin
--- NOTE | 2017-10-06 13:43 | Proc Note Endoscopy ---
Endoscopy Procedure Medical History: unchanged (see [facility] consult 10/04/17) Mental Status: alert/oriented Heart/Lung Eval Prior to Sedation: within normal limits Candidate for Sedation? Yes Procedure Date: 10/06/17 Procedure Type: EGD w/biopsy Director Of Clinical Education: Shawn Kay MD ASA Classification: III Indications: Dysphagia/odynophagia. Instrument: diagnostic gastroscope Meds Received: MAC Patient's Tolerance: good Complications: none Extent Reached: second part of duodenum Procedure: After getting written informed consent the patient was placed in the left lateral decubitus position with pulse oximetry, cardiac monitoring, and supplemental oxygen given. A bite block was inserted and IV sedation was given until the desired effect was achieved. A high definition upper Olympus endoscope was then inserted into the mouth and advanced to the second portion of the duodenum with little difficulty. Retroflexed views and photodocumentation was obtained. Findings: Esophagus: The esophageal mucosa was grossly normal in appearance and there was a normal appearing Z-line at 41 cm from the incisors. There were no esophageal strictures, ulcers, erosions, masses, whitish plaques, or significant furrowing appreciated. Random biopsies were obtained from the esophagus with cold biopsy forceps and were sent to pathology for further evaluation. Stomach: The gastric mucosa was diffusely atrophic and there was some leftover bile, but there was no leftover food and the pylorus was patent and easily traversable by the upper endoscope. Distention was normal, but peristalsis appeared mildly decreased. There were no ulcers, erosions, or masses appreciated. Retroflexed views were normal did not reveal significant hiatal hernia. Random biopsies were obtained from the antrum with cold biopsy forceps and were sent to pathology for further evaluation. Duodenum: The duodenal bulb, sweep, and folds were grossly normal in appearance. Random biopsies were obtained from the second portion of the duodenum and were sent to pathology for further evaluation. Impression: 1. Atrophic gastritis and suggestion of gastroparesis status post gastric biopsies. 2. Grossly normal esophageal mucosa, GE junction, and small bowel folds status post random biopsies. Recommendations: 1. He should use H2 RA's or PPIs as needed for dyspeptic symptoms or heartburn. 2. He should follow an antireflux regimen. 3. He should follow up the pathology results me as an outpatient. 4. His diet should be advanced as tolerated. 5. There are no GI contraindication to resuming his anticoagulation if medically indicated. CC: Lakeisha RANKIN,Gilbert Mark
[2017-10-06 14:47] VITALS: BP 142/80
--- NOTE | 2017-10-06 16:00 | PN- Nephrology ---
Assessment/Plan Nephrology Assessment: 1. CKD stage III status post DDKT 2014 2. SHIRA - significantly improved likely due to better hydration although contrast nephropathy and/or vancomycin toxicity may have played a role; serum creatinine down again to 1.4 3. 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 Necrotic wound/osteomyelitis right foot; s/p right peroneal angioplasty, I&D , revision partial first ray resection 5. Episodic confusion - MRI --> ?possible multiple microemboli -resolved 6. Leukopenia/neutropenia - now with leukocytosis (improving) and off Neupogen 7. Anemia - on weekly Procrit 8. Odynophagia - improved; barium swallow--> possible esophagitis in the proximal thoracic esophagus as well as a circumferential stricture at the GE junction and mild esophageal dysmotility; EGD earlier today revealed atrophic gastritis and suggestion of gastroparesis, grossly normal esophageal mucosa, GE junction, and small bowel folds. Random biopsies obtained. 9. Diarrhea with negative C. difficile - improving Suggestion: 1. If renal function and clinical status stable over the next 24-48 hours, would increase MMF back up to his original dose of 1000 mg twice a day. 2. Also, would ultimately increase tacrolimus level back up to 3.5 mg daily if level falls below 7.0. 3. Encourage by mouth fluids. 4. Antibiotic therapy per ID. 5. Podiatry and vascular surgery following. Subjective Subjective: Patient continues to look relatively comfortable. Minimal pain on swallowing and his stools seem to be more formed and controlled. He remains afebrile. WBCs still high but improving following discontinuation of Neupogen. Renal function better with creatinine down to 1.4. Tacrolimus level yesterday down to 7.3. Objective Vital Signs and I&Os Vital Signs Date Time Temp Pulse Resp B/P B/P Pulse O2 O2 Flow FiO2 Mean Ox Delivery Rate 10/06 1447 97.4 60 20 142/80 95 Room Air 10/06 1016 64 18 110/64 10/06 1014 64 18 110/64 10/06 0647 97.7 61 16 118/76 97 10/05 2224 98.0 65 20 126/78 98 Intake & Output 10/06 1600 10/06 0400 10/05 1600 10/05 0400 10/04 1600 10/04 040 Intake Total 978 330 827.6 575 1040 300 Output Total 0200 655 0329 200 1350 300 Balance -322 -470 -472.4 375 -310 0 Intake, IV 798 90 247.6 200 Intake, Oral 180 240 624 830 3497 300 Number 1 1 Bowel Movements Output, Urine 5419 011 0014 200 1350 300 Patient 220 lb 204 lb Weight Physical Exam: General: Well-developed white male in NAD Skin: No rash or jaundice; multiple senile keratoses; no petechiae or splinter hemorrhages HEENT: Conjunctivae pale, sclerae anicteric, mucous membranes moist Neck: Without masses or thyromegaly, no supraclavicular or cervical adenopathy Chest: Clear to P&A Heart: Regular rate and rhythm without S3 or rub Abdomen: Soft and nontender without palpable masses or organomegaly Extremities: Without cyanosis or edema; right foot dressing intact Neuro: Awake, alert and oriented, no focal findings, no asterixis or myoclonus Results Pertinent Lab Results: Laboratory Tests 10/06 10/06 10/06 UNK 0650 0016 Chemistry Sodium (137 - 145 mmol/L) 139 Potassium (3.5 - 5.1 mmol/L) 4.7 Chloride (98 - 107 mmol/L) 102 Carbon Dioxide (22 - 30 mmol/L) 27 Anion Gap (5 - 16) 10 BUN (9 - 20 mg/dL) 24 H Creatinine (0.7 - 1.2 mg/dL) 1.4 H Estimated GFR (>60 ml/min) 50 L BUN/Creatinine Ratio (7 - 25 %) 17.1 Magnesium (1.6 - 2.3 mg/dL) 1.9 Vitamin B12 (239 - 931 pg/mL) > 1000 H TSH (0.270 - 4.200 uIU/mL) 1.460 Coagulation PT (9.4 - 12.5 SEC) 16.3 H INR (0.90 - 1.17) 1.49 H APTT (25 - 37 SEC) 79 H Hematology CBC w Diff MAN DIFF ORDERED WBC (4.8 - 10.8 /CUMM) 11.7 H RBC (4.70 - 6.10 /CUMM) 3.26 L Hgb (14.0 - 18.0 G/DL) 9.0 L Hct (42 - 52 %) 27.3 L MCV (80.0 - 94.0 FL) 83.8 MCH (27.0 - 31.0 PG) 27.6 MCHC (33.0 - 37.0 G/DL) 32.9 L RDW (11.5 - 14.5 %) 14.3 Plt Count (130 - 400 /CUMM) 292 MPV (7.4 - 10.4 FL) 8.1 Gran % (42.2 - 75.2 %) 79.7 H Lymphocytes % (20.5 - 51.1 %) 10.8 L Monocytes % (1.7 - 9.3 %) 7.7 Eosinophils % (0 - 5 %) 1.2 Basophils % (0.0 - 2.0 %) 0.6 Absolute Granulocytes (1.4 - 6.5 /CUMM) 9.3 H Segmented Neutrophils (42.2 - 75.2 %) 63 Band Neutrophils (0.0 - 5.0 %) 13 H Absolute Lymphocytes (1.2 - 3.4 /CUMM) 1.3 Lymphocytes (20.5 - 51.1 %) 9 L Monocytes (1.7 - 9.3 %) 9 Absolute Monocytes (0.10 - 0.60 /CUMM) 0.9 H Eosinophils (0 - 5.0 %) 2 Absolute Eosinophils (0.0 - 0.7 /CUMM) 0.1 Absolute Basophils (0.0 - 0.2 /CUMM) 0.1 Metamyelocytes (0.0 - 1.0 %) 2 H Myelocytes (0 - 0 %) 2 H Platelet Estimate (ADEQUATE) ADEQUATE Polychromasia 1+ Hypochromic-Microcytic 1+ Poikilocytosis 2+ Anisocytosis 2+ Ovalocytes 2+ Toxicology Tacrolimus Cancelled Pending 10/05 10/05 1155 0647 Chemistry Sodium (137 - 145 mmol/L) 142 Potassium (3.5 - 5.1 mmol/L) 4.9 Chloride (98 - 107 mmol/L) 104 Carbon Dioxide (22 - 30 mmol/L) 27 Anion Gap (5 - 16) 11 BUN (9 - 20 mg/dL) 24 H Creatinine (0.7 - 1.2 mg/dL) 1.6 H Estimated GFR (>60 ml/min) 43 L BUN/Creatinine Ratio (7 - 25 %) 15.0 Magnesium (1.6 - 2.3 mg/dL) 1.9 Creatine Kinase (55 - 170 U/L) 109 Albumin (3.5 - 5.0 g/dL) 3.1 L Coagulation APTT (25 - 37 SEC) 82 H Hematology CBC w Diff MAN DIFF ORDERED WBC (4.8 - 10.8 /CUMM) 13.2 H RBC (4.70 - 6.10 /CUMM) 3.30 L Hgb (14.0 - 18.0 G/DL) 9.1 L Hct (42 - 52 %) 27.7 L MCV (80.0 - 94.0 FL) 84.0 MCH (27.0 - 31.0 PG) 27.5 MCHC (33.0 - 37.0 G/DL) 32.7 L RDW (11.5 - 14.5 %) 14.5 Plt Count (130 - 400 /CUMM) 327 MPV (7.4 - 10.4 FL) 8.5 Gran % (42.2 - 75.2 %) 79.1 H Lymphocytes % (20.5 - 51.1 %) 9.2 L Monocytes % (1.7 - 9.3 %) 9.9 H Eosinophils % (0 - 5 %) 1.3 Basophils % (0.0 - 2.0 %) 0.5 Absolute Granulocytes (1.4 - 6.5 /CUMM) 10.4 H Segmented Neutrophils (42.2 - 75.2 %) 69 Band Neutrophils (0.0 - 5.0 %) 10 H Absolute Lymphocytes (1.2 - 3.4 /CUMM) 1.2 Lymphocytes (20.5 - 51.1 %) 9 L Monocytes (1.7 - 9.3 %) 8 Absolute Monocytes (0.10 - 0.60 /CUMM) 1.3 H Eosinophils (0 - 5.0 %) 1 Absolute Eosinophils (0.0 - 0.7 /CUMM) 0.2 Absolute Basophils (0.0 - 0.2 /CUMM) 0.1 Myelocytes (0 - 0 %) 3 H Nucleated RBCs (0.0 - 0.0 /100WBC) 2 H Platelet Estimate (ADEQUATE) VERIFIED BY SMEAR Polychromasia 1+ Anisocytosis 2+ Toxicology Tacrolimus (() mcg/L) 7.3 04/03 04/03 0630 0030 Chemistry Sodium (137 - 145 mmol/L) 141 Potassium (3.5 - 5.1 mmol/L) 4.5 Chloride (98 - 107 mmol/L) 107 Carbon Dioxide (22 - 30 mmol/L) 25 Anion Gap (5 - 16) 10 BUN (9 - 20 mg/dL) 24 H Creatinine (0.7 - 1.2 mg/dL) 1.4 H Estimated GFR (>60 ml/min) 50 L BUN/Creatinine Ratio (7 - 25 %) 17.1 Magnesium (1.6 - 2.3 mg/dL) 1.9 Coagulation APTT (25 - 37 SEC) 46 H Hematology CBC w Diff MAN DIFF ORDERED WBC (4.8 - 10.8 /CUMM) 8.0 RBC (4.70 - 6.10 /CUMM) 3.21 L Hgb (14.0 - 18.0 G/DL) 8.8 L Hct (42 - 52 %) 27.0 L MCV (80.0 - 94.0 FL) 84.0 MCH (27.0 - 31.0 PG) 27.4 MCHC (33.0 - 37.0 G/DL) 32.6 L RDW (11.5 - 14.5 %) 14.3 Plt Count (130 - 400 /CUMM) 318 MPV (7.4 - 10.4 FL) 8.0 Gran % (42.2 - 75.2 %) 74.2 Lymphocytes % (20.5 - 51.1 %) 11.8 L Monocytes % (1.7 - 9.3 %) 11.6 H Eosinophils % (0 - 5 %) 2.0 Basophils % (0.0 - 2.0 %) 0.4 Absolute Granulocytes (1.4 - 6.5 /CUMM) 5.9 Segmented Neutrophils (42.2 - 75.2 %) 63 Band Neutrophils (0.0 - 5.0 %) 10 H Absolute Lymphocytes (1.2 - 3.4 /CUMM) 0.9 L Lymphocytes (20.5 - 51.1 %) 8 L Monocytes (1.7 - 9.3 %) 16 H Absolute Monocytes (0.10 - 0.60 /CUMM) 0.9 H Eosinophils (0 - 5.0 %) 1 Absolute Eosinophils (0.0 - 0.7 /CUMM) 0.2 Absolute Basophils (0.0 - 0.2 /CUMM) 0 Metamyelocytes (0.0 - 1.0 %) 2 H Nucleated RBCs (0.0 - 0.0 /100WBC) 3 H Platelet Estimate (ADEQUATE) ADEQUATE Hypochromic-Microcytic 1+ Poikilocytosis 2+ Anisocytosis 1+ Toxicology Tacrolimus (() mcg/L) 7.7
--- NOTE | 2017-10-06 16:21 | INTERVENTIONAL RADIOLOGY RPT ---
CLINICAL HISTORY: This patient is a 71 year old male with osteomyelitis, who presents to Interventional Radiology for placement of a single lumen Proline tunneled central venous catheter. PROCEDURES: 1. Real-time ultrasound-guided access into the right internal jugular vein after documentation of selected vessel patency, and permanent imaging storing in the patient records. 2. Placement of a tunneled central venous catheter. PHYSICIANS: Dr. Ad Chung (attending). MONITORING: Continuous blood pressure, pulse oximetry as well as heart rate monitoring was performed by an independent registered nurse. MEDICATIONS: 1. Lidocaine 1%, 10 mL SQ. 3. Lidocaine 1%, 20 mL with epinephrine SQ. CONTRAST: None FLUOROSCOPY TIME: 1.9 minutes DAP: 1.8 uGym2 COMPLICATIONS: None ESTIMATED BLOOD LOSS: <5 mL SPECIMENS: None IMPLANT: 5-Fr single lumen Proline central venous catheter SITE MARKING: As part of the preprocedure verification policy, a site marking procedure was initiated. Due to the nature the procedure, the insertion site could not be predetermined thus invoking the policy of exemption to site laterality and marking. Insertion site marking was performed in the procedure room in conjunction with imaging confirmation. PROCEDURE NOTE: Informed consent was obtained from the patient prior to the procedure. During this process, the procedure and potential alternatives were explained along with the intended outcome and benefits. The risks of the procedure, including the possibility of an unsuccessful procedure, as well as the risk of not doing the procedure, were discussed. The patient was given the opportunity to ask questions regarding the procedure and appeared competent to make decisions. A signed consent form documenting this discussion was placed in the medical record. A time-out procedure was performed. The neck and chest were prepped and draped in usual sterile fashion. All elements of maximal sterile barrier technique followed including use of cap, mask, sterile gown, sterile gloves, a sterile full body drape and hand hygiene. Also followed skin preparation with 2% chlorhexidine for cutaneous antisepsis, and sterile ultrasound preparation with sterile gel and probe cover when applicable. Under ultrasound and fluoroscopic-guidance, the internal jugular vein was accessed with a 5-Fr Micropuncture set. The Micropuncture 0.018 wire was advanced until the tip was located at the level of the high right atrium, and wire length was measured. This 0.018 wire was then exchanged for a longer 0.018 wire that was advanced into the IVC to maintain access during the tunneling process. After injection of subcutaneous lidocaine, a subcutaneous tunnel to the venotomy site was created in the chest using blunt dissection. The Proline catheter was then sized and pulled through the tunnel. The sheath was exchanged for a peel-away sheath over the wire. The catheter was advanced through the peel-away sheath, which was subsequently removed. The catheter was tested successfully, flushed, a Biopatch was applied and the catheter secured to the skin. Dermabond was applied to the neck access site. The patient tolerated the procedure well. FINDINGS: 1. Patent right internal jugular vein. 2. Placement of a Proline catheter with tip at the superior cavoatrial junction that measures 23 cm in length. 3. Catheter flushes and aspirates well. 4. No pneumothorax. IMPRESSION: Successful and uncomplicated placement of a tunneled central venous Proline catheter. PLAN: 1. The patient was stable after the procedure and was transferred to the interventional recovery area. The patient will be transferred back to his medical room. 2. The catheter may be used immediately.
[2017-10-06 23:50] VITALS: BP 136/76
[2017-10-07 06:50] VITALS: BP 138/72
--- NOTE | 2017-10-07 07:54 | PN- Housestaff ---
Subjective Follow-up For: Osteomyelitis Positive blood cultures New left bundle branch block SHIRA in Renal transplant patient Neuropenia AMS Tele-Events Since Last Visit: OFF tele Subjective: No acute events overnight. Patient complaining of worsening right arthritis pain. States that he takes hydroxychloroquine which has not been giving the hospital. We will not be restarting his hydroxychloroquine as we are trying to manage his immunosuppressants. Patient states that his mood is better today. Review of Systems Constitutional: Reports: see HPI. Objective Last 24 Hrs of Vital Signs/I&O Vital Signs Date Time Temp Pulse Resp B/P B/P Pulse O2 O2 Flow FiO2 Mean Ox Delivery Rate 10/07 1521 Nasal 2.0L Cannula 10/07 1517 Nasal 2.0L Cannula 10/07 1436 97.6 62 18 140/70 93 Room Air 10/07 0856 69 120/60 10/07 0855 70 120/60 10/07 0800 Room Air 10/07 0650 98.3 60 18 138/72 95 Room Air 10/06 2350 98.3 61 16 136/76 95 Room Air Intake & Output 10/07 1600 10/07 0800 04/06 0000 Intake Total 290 350 360 Output Total 800 650 425 Balance -510 -300 -65 Intake, IV 50 Intake, Oral 240 350 360 Number 2 Bowel Movements Output, Urine 800 650 425 Patient 205 lb Weight Weight Bed scale Measurement Method Physical Exam General Appearance: Alert, Oriented X3, Cooperative, No Acute Distress Cardiovascular: Regular Rate, Normal S1, Normal S2 Lungs: Clear to Auscultation, Normal Air Movement Abdomen: Normal Bowel Sounds, Soft, No Tenderness Extremities: trace right lower extremity edema, right upper extremity hematoma Vascular: 2+ right radial pulse, L AV fistula Current Medications: Current Medications Sig/Ira Start time Last Medication Dose Route Stop Time Status Admin Acetaminophen 650 MG .STK-MED ONE 10/07 2235 DC PO 10/06 2236 Acetaminophen 650 MG Q6P PRN 09/22 1600 AC 10/06 PO 2235 Amiodarone HCl 100 MG DAILY 09/23 1000 AC 10/07 PO 0855 Apixaban 5 MG BID 10/06 1500 AC 10/07 PO 0855 Benzocaine/Menthol 1 CELIA Q2P PRN 09/30 0100 AC 09/30 PO 0118 Calcium/Vitamin D 500 MG DAILY 09/22 1928 AC 10/07 PO 0855 Daptomycin 500 MG Q24H 09/28 1830 AC 10/07 Sodium Chloride 50 ML IV 1741 Epoetin Onofre 20,000 U ONCE A WEEK 09/29 1030 10/06 NH 1020 Escitalopram Oxalate 10 MG DAILY 09/23 1000 AC 10/07 PO 0855 Insulin Aspart 0 TIDAC/HS 10/06 1700 10/07 NH 1659 Insulin Detemir 20 UNITS 8AM 09/30 0800 10/06 NH 0807 Lidocaine/Diphenhydr/ 5 ML Q4-6 PRN PRN 09/30 1530 AC 10/03 Alum/Mg/Simeth PO 2130 Magnesium Sulfate 1 GM ONCE ONE 10/07 1145 DC 10/07 Dextrose/Water 100 ML IV 10/07 1544 1230 Metoprolol Succinate 12.5 MG DAILY 09/23 1000 AC 10/07 PO 0856 Mycophenolate Mofetil 1,000 MG BID 10/07 2200 MT PO Mycophenolate Mofetil 500 MG BID 10/07 2200 PO Mycophenolate Mofetil 500 MG BID 10/04 1000 DC 10/07 PO 0855 Omeprazole 20 MG DAILY AC 10/03 1334 AC 10/07 PO 0614 Tacrolimus 1.5 MG 0810/08 0800 AC PO Tacrolimus 0.75 MG 0810/01 0800 DC 10/07 PO 0855 Tacrolimus 2 MG 0800 09/30 0800 AC 10/07 PO 0855 Tramadol HCl 25 MG ONCE ONE 10/06 2230 DC 10/06 PO 10/06 2231 2237 Last 24 Hrs of Lab/Joel Results Last 24 Hrs of Labs/Mics: Laboratory Tests 10/07/17 0656: Haptoglobin Pending 10/07/17 0656: Anion Gap 12, Estimated GFR 55 L, BUN/Creatinine Ratio 16.9, Magnesium 1.9, CBC w Diff MAN DIFF ORDERED, RBC 3.23 L, MCV 84.6, MCH 27.6, MCHC 32.6 L, RDW 14.1 , MPV 8.0, Gran % 81.5 H, Lymphocytes % 10.8 L, Monocytes % 5.8, Eosinophils % 1.4, Basophils % 0.5, Absolute Granulocytes 6.6 H, Segmented Neutrophils 73, Band Neutrophils 6 H, Absolute Lymphocytes 0.9 L, Lymphocytes 10 L, Monocytes 5, Absolute Monocytes 0.5, Eosinophils 5, Absolute Eosinophils 0.1, Absolute Basophils 0, Metamyelocytes 1, Polychromasia 1+, Poikilocytosis 1+, Anisocytosis 1+, Retic Count 3.39 H, Tacrolimus Pending Assessment/Plan Assessment: A: Patient is a 71-year-old male with a PMH significant for ESRD status post renal transplant on tacrolimus and CellCept, paroxysmal atrial fibrillation on Eliquis , HTN, HLD, CVA, DM, with recent admission to [facility] for osteomyelitis , status post amputation of the right and left third toes and left great toe who presented to the ED complaining of a several day history of malaise, nausea, vomiting, diarrhea, poor appetite found to have 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 Problem list #Sepsis 2/2 to R foot osteomyelitils currently s/p angioplasty for concurrent PVD WBC 2.1 -> 13.2 -> 8.1 CRP >9 ESR 72 -> 49 Blood cultures + for MRSA Surgical cultures + for MRSA Arterial Doppler: Decreased flow is noted within the right anterior tibial artery, lower part of the left popliteal, and posterior tibial, anterior tibial and dorsalis pedis arteries. Repeat foot xr: post surgical changes TESS negative for vegetation but small PFO and atherosclerotic disease MRI + for foci most liekly embolic in origin and favoring bland > septic origin Baseline CPK 81, repeat 109 - switched to daptomycin from vanc. ak'ed statin due to risk of rhabdo. -Will require weekly CPK while on antibiotics -s/p proline -Discharge with daily antibiotics until November 3 to complete 4-6 week total course #neurtopenia + anemia in the setting of ckd s/p renal transplant WBC 1.2 -> 13.2 -> 8.7 Perpherial flow cytometry suggesting BM biopsy for MDS -stopped neupogen as WBC has improved -Follow-up hematology oncology recs #SHIRA on CKD, History of renal transplantation Creatinine 1.3 (baseline 1.2) Tacrolimus level 5.4 -renal function stable. We'll keep mycophenolate at 500 mg twice a day despite nephrology recommendations -Increase tacrolimus level back to 3.5 mg daily as levels have fallen below 7 -Follow nephrology recommendations -Continue calcium/vitamin D #sore throat Rapid flu negative Strep throat culture negative CMV negative EGD: Atrophic gastritis and suggestion of gastroparesis status post gastric biopsie -Continue scheduled PPI and educate regarding antireflux regimen -Outpatient biopsy results -cont magic mouth wash -monitor vitals #continued loose stools - improving C.diff negative x2 cdiff pcr negative -avoid loose stool causing meds such as magox -possibly due to mycophenolate #Altered mental status/hallucinations Sudden onset of hallucinatinations and AMS Head CT negative -much improved after stopping dicyclomine, morphine , burproprion #H/H drop / anemia - cururently stable H/H 7.3 -> 9.0 s/p 1 unit during admission. Folate 12.2, B12 >1000, ferritin >1760, iron 28 -monitor cbc daily -finished folinic acid 25 mg X7 days -cont epo -Continue to monitor #diabetes Maintain blood sugars less than 150 -cont endo recs #New onset left bundle branch block/mild elevated troponins Troponins 0.04, 0.18, 0.13 -Mild elevated troponins likely secondary to infection -Continue to follow cardiology recommendations #Chronic medical problems including PVD, paroxysmal A. fib, HTN, HLD, -Continue metoprolol, amiodarone, escitalopram, bupropion, apixaban, dicyclomine , Maalox, DVT prophylaxis: apixaban CODE STATUS: Full code Problem List: 1. PVD (peripheral vascular disease) 2. Atrophic gastritis 3. Loose stools 4. Left bundle branch block 5. Renal transplant recipient 6. Osteomyelitis Pain Ratin Pain Location: none Pain Goal: Pain 4 or less Pain Plan: pain pathway Tomorrow's Labs & Rationales: cbc bep mg tacrolimus
[2017-10-07 08:02] LABS: ABSOLUTE BASOPHIL COUNT 0 /CUMM (0.0-0.2); ABSOLUTE EOSINOPHIL COUNT 0.1 /CUMM (0.0-0.7); ABSOLUTE GRANULOCYTE CT 6.6 /CUMM (1.4-6.5); ABSOLUTE LYMPH COUNT 0.9 /CUMM (1.2-3.4); ABSOLUTE MONOCYTE COUNT 0.5 /CUMM (0.10-0.60); BASOPHIL % 0.5 % (0.0-2.0); EOSINOPHIL % 1.4 % (0-5); GRANULOCYTE % 81.5 % (42.2-75.2); HEMATOCRIT 27.4 % (42-52); MEAN CORPUSCULAR HGB 27.6 PG (27.0-31.0); MEAN CORPUSCULAR HGB CONC 32.6 G/DL (33.0-37.0); MEAN CORPUSCULAR VOLUME 84.6 FL (80.0-94.0); PLATELET COUNT 245 /CUMM (130-400); RBC DISTRIBUTION WIDTH 14.1 % (11.5-14.5); RED BLOOD CELL CT 3.23 /CUMM (4.70-6.10); WHITE BLOOD CELL COUNT 8.1 /CUMM (4.8-10.8)
--- NOTE | 2017-10-07 10:25 | PN- Infect Dx ---
Subjective Subjective: Afebrile. He continues to feel better with no further odynophagia and with stools more formed and better controlled. He has mild discomfort in the right foot. Objective Last 24 Hrs of Vital Signs/I&O Vital Signs Date Time Temp Pulse Resp B/P B/P Pulse O2 O2 Flow FiO2 Mean Ox Delivery Rate 10/08 855 69 120/60 10/07 0855 70 120/60 10/07 0800 Room Air 10/07 0650 98.3 60 18 138/72 95 Room Air / 2350 98.3 61 16 136/76 95 Room Air /05 1447 97.4 60 20 142/80 95 Room Air Intake & Output 10/07 1600 10/07 0800 10/07 0000 Intake Total 350 360 Output Total 650 425 Balance -300 -65 Intake, Oral 350 360 Number 2 Bowel Movements Output, Urine 650 425 Patient 205 lb Weight Weight Bed scale Measurement Method Physical Exam Other Physical Findings: He appears comfortable in no acute distress Chest Pro-Line in the right upper chest with mild swelling, but with no erythema or tenderness Extremities right foot dressing intact Results Last 24 Hours of Lab Results: Laboratory Tests 10/07 10/07 04/ 0656 0656 1215 Chemistry Sodium (137 - 145 mmol/L) 140 Potassium (3.5 - 5.1 mmol/L) 5.1 Chloride (98 - 107 mmol/L) 101 Carbon Dioxide (22 - 30 mmol/L) 27 Anion Gap (5 - 16) 12 BUN (9 - 20 mg/dL) 22 H Creatinine (0.7 - 1.2 mg/dL) 1.3 H Estimated GFR (>60 ml/min) 55 L BUN/Creatinine Ratio (7 - 25 %) 16.9 Magnesium (1.6 - 2.3 mg/dL) 1.9 Coagulation APTT Cancelled Hematology CBC w Diff MAN DIFF ORDERED WBC (4.8 - 10.8 /CUMM) 8.1 RBC (4.70 - 6.10 /CUMM) 3.23 L Hgb (14.0 - 18.0 G/DL) 8.9 L Hct (42 - 52 %) 27.4 L MCV (80.0 - 94.0 FL) 84.6 MCH (27.0 - 31.0 PG) 27.6 MCHC (33.0 - 37.0 G/DL) 32.6 L RDW (11.5 - 14.5 %) 14.1 Plt Count (130 - 400 /CUMM) 245 MPV (7.4 - 10.4 FL) 8.0 Gran % (42.2 - 75.2 %) 81.5 H Lymphocytes % (20.5 - 51.1 %) 10.8 L Monocytes % (1.7 - 9.3 %) 5.8 Eosinophils % (0 - 5 %) 1.4 Basophils % (0.0 - 2.0 %) 0.5 Absolute Granulocytes (1.4 - 6.5 /CUMM) 6.6 H Segmented Neutrophils (42.2 - 75.2 %) 73 Band Neutrophils (0.0 - 5.0 %) 6 H Absolute Lymphocytes (1.2 - 3.4 /CUMM) 0.9 L Lymphocytes (20.5 - 51.1 %) 10 L Monocytes (1.7 - 9.3 %) 5 Absolute Monocytes (0.10 - 0.60 /CUMM) 0.5 Eosinophils (0 - 5.0 %) 5 Absolute Eosinophils (0.0 - 0.7 /CUMM) 0.1 Absolute Basophils (0.0 - 0.2 /CUMM) 0 Metamyelocytes (0.0 - 1.0 %) 1 Polychromasia 1+ Poikilocytosis 1+ Anisocytosis 1+ Retic Count (0.5 - 2.0 %) 3.39 H Haptoglobin Pending Toxicology Tacrolimus Pending Last 24 Hours of Joel Results: No new cultures Assessment/Plan ID Impression: Stable, with temperatures and white blood cell count now both normal on Daptomycin, Day 15 of treatment for MRSA sepsis/osteomyelitis of the right foot status post revisional partial first ray resection, placement of a wound VAC and right peroneal artery angioplasty 10 days ago. Have discussed with Podiatry who is concerned regarding the viability of his right foot but there are no plans for further Podiatry or vascular surgery intervention at this time. His renal function is improving gradually since discontinuation of the Vancomycin, which was also felt to be responsible for his leukopenia. His odynophagia has improved with his upper endoscopy results noted, with a grossly normal esophageal mucosa and GE junction. Suggestion: 1. Close follow-up by Podiatry as an outpatient 2. Continue Daptomycin to plan on a 4-6 week course of treatment (until November 03) 3. Weekly CPK while on Daptomycin
--- NOTE | 2017-10-07 10:33 | PN- Diabetes ---
Assessment/Plan Diabetes Assessment: Patient is a 71-year-old male with a PMH significant for ESRD status post renal transplant on tacrolimus and CellCept, paroxysmal atrial fibrillation on Eliquis , HTN, HLD, CVA, DM type 2, with recent admission to [facility] for osteomyelitis, status post amputation of the toes, was admitted for chronic right foot infection. He underwent angiogram, angioplasty of right peroneal artery, right foot procedure and wound vac placement on 09/27/2017. He had TESS done on 09/28/2017. Currently he is on Levemir 20 units daily, Novolog coverage before meals and Novolog coverage at bedtime. His FSGs [id number], [id number], 290 and 159. Plan: continue the current insulin regimen for now; monitor FSGs. will follow. Subjective Subjective: He feels well. Objective Last 24 Hrs of Vital Signs/I&O Vital Signs Date Time Temp Pulse Resp B/P B/P Pulse O2 O2 Flow FiO2 Mean Ox Delivery Rate 10/07 0856 69 120/60 10/07 0855 70 120/60 10/07 0800 Room Air 10/07 0650 98.3 60 18 138/72 95 Room Air /05 2350 98.3 61 16 136/76 95 Room Air 04/05 1447 97.4 60 20 142/80 95 Room Air Intake & Output 10/07 1600 10/07 0800 / 0000 Intake Total 350 360 Output Total 650 425 Balance -300 -65 Intake, Oral 350 360 Number 2 Bowel Movements Output, Urine 650 425 Patient 205 lb Weight Weight Bed scale Measurement Method Findings Pertinent Lab/Joel Results: Laboratory Tests 10/07 10/07 04/05 0656 0656 1215 Chemistry Sodium (137 - 145 mmol/L) 140 Potassium (3.5 - 5.1 mmol/L) 5.1 Chloride (98 - 107 mmol/L) 101 Carbon Dioxide (22 - 30 mmol/L) 27 Anion Gap (5 - 16) 12 BUN (9 - 20 mg/dL) 22 H Creatinine (0.7 - 1.2 mg/dL) 1.3 H Estimated GFR (>60 ml/min) 55 L BUN/Creatinine Ratio (7 - 25 %) 16.9 Magnesium (1.6 - 2.3 mg/dL) 1.9 Coagulation APTT Cancelled Hematology CBC w Diff MAN DIFF ORDERED WBC (4.8 - 10.8 /CUMM) 8.1 RBC (4.70 - 6.10 /CUMM) 3.23 L Hgb (14.0 - 18.0 G/DL) 8.9 L Hct (42 - 52 %) 27.4 L MCV (80.0 - 94.0 FL) 84.6 MCH (27.0 - 31.0 PG) 27.6 MCHC (33.0 - 37.0 G/DL) 32.6 L RDW (11.5 - 14.5 %) 14.1 Plt Count (130 - 400 /CUMM) 245 MPV (7.4 - 10.4 FL) 8.0 Gran % (42.2 - 75.2 %) 81.5 H Lymphocytes % (20.5 - 51.1 %) 10.8 L Monocytes % (1.7 - 9.3 %) 5.8 Eosinophils % (0 - 5 %) 1.4 Basophils % (0.0 - 2.0 %) 0.5 Absolute Granulocytes (1.4 - 6.5 /CUMM) 6.6 H Segmented Neutrophils (42.2 - 75.2 %) 73 Band Neutrophils (0.0 - 5.0 %) 6 H Absolute Lymphocytes (1.2 - 3.4 /CUMM) 0.9 L Lymphocytes (20.5 - 51.1 %) 10 L Monocytes (1.7 - 9.3 %) 5 Absolute Monocytes (0.10 - 0.60 /CUMM) 0.5 Eosinophils (0 - 5.0 %) 5 Absolute Eosinophils (0.0 - 0.7 /CUMM) 0.1 Absolute Basophils (0.0 - 0.2 /CUMM) 0 Metamyelocytes (0.0 - 1.0 %) 1 Polychromasia 1+ Poikilocytosis 1+ Anisocytosis 1+ Retic Count (0.5 - 2.0 %) 3.39 H Haptoglobin Pending Toxicology Tacrolimus Pending
--- NOTE | 2017-10-07 14:17 | PN- Nephrology ---
Assessment/Plan Nephrology Assessment: 1. CKD stage III status post DDKT 2014 2. SHIRA - significantly improved likely due to better hydration although contrast nephropathy and/or vancomycin toxicity may have played a role; serum creatinine again approaching baseline 3. 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 Necrotic wound/osteomyelitis right foot; s/p right peroneal angioplasty, I&D , revision partial first ray resection 5. Episodic confusion - MRI --> ?possible multiple microemboli -resolved 6. Leukopenia/neutropenia -resolved 7. Anemia - on weekly Procrit 8. Odynophagia -essentially resolved; barium swallow--> possible esophagitis in the proximal thoracic esophagus as well as a circumferential stricture at the GE junction and mild esophageal dysmotility; EGD yesterday revealed atrophic gastritis and suggestion of gastroparesis, grossly normal esophageal mucosa, GE junction, and small bowel folds. Random biopsies obtained. 9. Diarrhea with negative C. difficile - improving Suggestion: 1. Increase MMF dose pack to 1000 mg twice a day 2. Also, would increase tacrolimus level back up to 3.5 mg daily 3. Encourage by mouth fluids. 4. Antibiotic therapy per ID. 5. Podiatry and vascular surgery f/u. Subjective Subjective: Patient continues to feel better with no significant GI symptoms at this time either upper or lower. Serum creatinine down to 1.3 and tacrolimus level down to 5.4 yesterday. Objective Vital Signs and I&Os Vital Signs Date Time Temp Pulse Resp B/P B/P Pulse O2 O2 Flow FiO2 Mean Ox Delivery Rate 10/07 0856 69 120/60 10/07 0855 70 120/60 10/07 0800 Room Air 10/07 0650 98.3 60 18 138/72 95 Room Air /05 2350 98.3 61 16 136/76 95 Room Air / 1447 97.4 60 20 142/80 95 Room Air Intake & Output 10/07 1600 10/07 0400 10/06 1600 10/06 0400 10/05 1600 10/05 0400 Intake Total 350 360 978 330 827.6 575 Output Total 030 191 8561 800 1300 200 Balance -300 -65 -322 -470 -472.4 375 Intake, IV 798 90 247.6 200 Intake, Oral 350 360 180 240 580 375 Number 2 1 Bowel Movements Output, Urine 872 306 6443 800 1300 200 Patient 205 lb 220 lb Weight Weight Bed scale Measurement Method Physical Exam: General: Well-developed white male in NAD Skin: No rash or jaundice; multiple senile keratoses; no petechiae or splinter hemorrhages HEENT: Conjunctivae pale, sclerae anicteric, mucous membranes moist Neck: Without masses or thyromegaly, no supraclavicular or cervical adenopathy Chest: Clear to P&A Heart: Regular rate and rhythm without S3 or rub Abdomen: Soft and nontender without palpable masses or organomegaly Extremities: Without cyanosis or edema; right foot dressing intact Neuro: Awake, alert and oriented, no focal findings, no asterixis or myoclonus Results Pertinent Lab Results: Laboratory Tests 10/07 10/07 10/06 0656 0656 1215 Chemistry Sodium (137 - 145 mmol/L) 140 Potassium (3.5 - 5.1 mmol/L) 5.1 Chloride (98 - 107 mmol/L) 101 Carbon Dioxide (22 - 30 mmol/L) 27 Anion Gap (5 - 16) 12 BUN (9 - 20 mg/dL) 22 H Creatinine (0.7 - 1.2 mg/dL) 1.3 H Estimated GFR (>60 ml/min) 55 L BUN/Creatinine Ratio (7 - 25 %) 16.9 Magnesium (1.6 - 2.3 mg/dL) 1.9 Coagulation APTT Cancelled Hematology CBC w Diff MAN DIFF ORDERED WBC (4.8 - 10.8 /CUMM) 8.1 RBC (4.70 - 6.10 /CUMM) 3.23 L Hgb (14.0 - 18.0 G/DL) 8.9 L Hct (42 - 52 %) 27.4 L MCV (80.0 - 94.0 FL) 84.6 MCH (27.0 - 31.0 PG) 27.6 MCHC (33.0 - 37.0 G/DL) 32.6 L RDW (11.5 - 14.5 %) 14.1 Plt Count (130 - 400 /CUMM) 245 MPV (7.4 - 10.4 FL) 8.0 Gran % (42.2 - 75.2 %) 81.5 H Lymphocytes % (20.5 - 51.1 %) 10.8 L Monocytes % (1.7 - 9.3 %) 5.8 Eosinophils % (0 - 5 %) 1.4 Basophils % (0.0 - 2.0 %) 0.5 Absolute Granulocytes (1.4 - 6.5 /CUMM) 6.6 H Segmented Neutrophils (42.2 - 75.2 %) 73 Band Neutrophils (0.0 - 5.0 %) 6 H Absolute Lymphocytes (1.2 - 3.4 /CUMM) 0.9 L Lymphocytes (20.5 - 51.1 %) 10 L Monocytes (1.7 - 9.3 %) 5 Absolute Monocytes (0.10 - 0.60 /CUMM) 0.5 Eosinophils (0 - 5.0 %) 5 Absolute Eosinophils (0.0 - 0.7 /CUMM) 0.1 Absolute Basophils (0.0 - 0.2 /CUMM) 0 Metamyelocytes (0.0 - 1.0 %) 1 Polychromasia 1+ Poikilocytosis 1+ Anisocytosis 1+ Retic Count (0.5 - 2.0 %) 3.39 H Haptoglobin Pending Toxicology Tacrolimus Pending 10/06 10/06 10/06 UNK 0650 0016 Chemistry Sodium (137 - 145 mmol/L) 139 Potassium (3.5 - 5.1 mmol/L) 4.7 Chloride (98 - 107 mmol/L) 102 Carbon Dioxide (22 - 30 mmol/L) 27 Anion Gap (5 - 16) 10 BUN (9 - 20 mg/dL) 24 H Creatinine (0.7 - 1.2 mg/dL) 1.4 H Estimated GFR (>60 ml/min) 50 L BUN/Creatinine Ratio (7 - 25 %) 17.1 Magnesium (1.6 - 2.3 mg/dL) 1.9 Vitamin B12 (239 - 931 pg/mL) > 1000 H TSH (0.270 - 4.200 uIU/mL) 1.460 Coagulation PT (9.4 - 12.5 SEC) 16.3 H INR (0.90 - 1.17) 1.49 H APTT (25 - 37 SEC) 79 H Hematology CBC w Diff MAN DIFF ORDERED WBC (4.8 - 10.8 /CUMM) 11.7 H RBC (4.70 - 6.10 /CUMM) 3.26 L Hgb (14.0 - 18.0 G/DL) 9.0 L Hct (42 - 52 %) 27.3 L MCV (80.0 - 94.0 FL) 83.8 MCH (27.0 - 31.0 PG) 27.6 MCHC (33.0 - 37.0 G/DL) 32.9 L RDW (11.5 - 14.5 %) 14.3 Plt Count (130 - 400 /CUMM) 292 MPV (7.4 - 10.4 FL) 8.1 Gran % (42.2 - 75.2 %) 79.7 H Lymphocytes % (20.5 - 51.1 %) 10.8 L Monocytes % (1.7 - 9.3 %) 7.7 Eosinophils % (0 - 5 %) 1.2 Basophils % (0.0 - 2.0 %) 0.6 Absolute Granulocytes (1.4 - 6.5 /CUMM) 9.3 H Segmented Neutrophils (42.2 - 75.2 %) 63 Band Neutrophils (0.0 - 5.0 %) 13 H Absolute Lymphocytes (1.2 - 3.4 /CUMM) 1.3 Lymphocytes (20.5 - 51.1 %) 9 L Monocytes (1.7 - 9.3 %) 9 Absolute Monocytes (0.10 - 0.60 /CUMM) 0.9 H Eosinophils (0 - 5.0 %) 2 Absolute Eosinophils (0.0 - 0.7 /CUMM) 0.1 Absolute Basophils (0.0 - 0.2 /CUMM) 0.1 Metamyelocytes (0.0 - 1.0 %) 2 H Myelocytes (0 - 0 %) 2 H Platelet Estimate (ADEQUATE) ADEQUATE Polychromasia 1+ Hypochromic-Microcytic 1+ Poikilocytosis 2+ Anisocytosis 2+ Ovalocytes 2+ Toxicology Tacrolimus (() mcg/L) Cancelled 5.4 04/04 04/04 1155 0647 Chemistry Sodium (137 - 145 mmol/L) 142 Potassium (3.5 - 5.1 mmol/L) 4.9 Chloride (98 - 107 mmol/L) 104 Carbon Dioxide (22 - 30 mmol/L) 27 Anion Gap (5 - 16) 11 BUN (9 - 20 mg/dL) 24 H Creatinine (0.7 - 1.2 mg/dL) 1.6 H Estimated GFR (>60 ml/min) 43 L BUN/Creatinine Ratio (7 - 25 %) 15.0 Magnesium (1.6 - 2.3 mg/dL) 1.9 Creatine Kinase (55 - 170 U/L) 109 Albumin (3.5 - 5.0 g/dL) 3.1 L Coagulation APTT (25 - 37 SEC) 82 H Hematology CBC w Diff MAN DIFF ORDERED WBC (4.8 - 10.8 /CUMM) 13.2 H RBC (4.70 - 6.10 /CUMM) 3.30 L Hgb (14.0 - 18.0 G/DL) 9.1 L Hct (42 - 52 %) 27.7 L MCV (80.0 - 94.0 FL) 84.0 MCH (27.0 - 31.0 PG) 27.5 MCHC (33.0 - 37.0 G/DL) 32.7 L RDW (11.5 - 14.5 %) 14.5 Plt Count (130 - 400 /CUMM) 327 MPV (7.4 - 10.4 FL) 8.5 Gran % (42.2 - 75.2 %) 79.1 H Lymphocytes % (20.5 - 51.1 %) 9.2 L Monocytes % (1.7 - 9.3 %) 9.9 H Eosinophils % (0 - 5 %) 1.3 Basophils % (0.0 - 2.0 %) 0.5 Absolute Granulocytes (1.4 - 6.5 /CUMM) 10.4 H Segmented Neutrophils (42.2 - 75.2 %) 69 Band Neutrophils (0.0 - 5.0 %) 10 H Absolute Lymphocytes (1.2 - 3.4 /CUMM) 1.2 Lymphocytes (20.5 - 51.1 %) 9 L Monocytes (1.7 - 9.3 %) 8 Absolute Monocytes (0.10 - 0.60 /CUMM) 1.3 H Eosinophils (0 - 5.0 %) 1 Absolute Eosinophils (0.0 - 0.7 /CUMM) 0.2 Absolute Basophils (0.0 - 0.2 /CUMM) 0.1 Myelocytes (0 - 0 %) 3 H Nucleated RBCs (0.0 - 0.0 /100WBC) 2 H Platelet Estimate (ADEQUATE) VERIFIED BY SMEAR Polychromasia 1+ Anisocytosis 2+ Toxicology Tacrolimus (() mcg/L) 7.3
[2017-10-07] MEDS ORDERED: CUBICIN500 MG IV (14:20)
[2017-10-07] MEDS ORDERED: CELLCEPT500 M2 PO (14:23)
[2017-10-07] MEDS ORDERED: OMEPRAZOLE20 M2 PO (14:24)
[2017-10-07 14:36] VITALS: BP 140/70
--- NOTE | 2017-10-07 18:50 | PN- Pulmonary ---
Subjective HPI/Critical Care Issues: Doing ok s/p egd and proline egd Impression: 1. Atrophic gastritis and suggestion of gastroparesis status post gastric biopsies. 2. Grossly normal esophageal mucosa, GE junction, and small bowel folds status post random biopsies. Recommendations: 1. He should use H2 RA's or PPIs as needed for dyspeptic symptoms or heartburn. 2. He should follow an antireflux regimen. 3. He should follow up the pathology results me as an outpatient. 4. His diet should be advanced as tolerated. 5. There are no GI contraindication to resuming his anticoagulation if medically indicated. Objective Current Medications: Current Medications Sig/Ira Start time Last Medication Dose Route Stop Time Status Admin Acetaminophen 650 MG .STK-MED ONE 10/07 2235 DC PO 10/06 223 Acetaminophen 650 MG Q6P PRN 09/22 1600 10/06 PO 2236 Amiodarone HCl 100 MG DAILY 09/23 1000 AC 10/07 PO 0855 Apixaban 5 MG BID 10/06 1500 10/07 PO 0855 Benzocaine/Menthol 1 CELIA Q2P PRN 09/30 0100 AC 09/30 PO 0118 Calcium/Vitamin D 500 MG DAILY 09/22 1929 AC 10/07 PO 0855 Daptomycin 500 MG Q24H 09/28 1830 10/07 Sodium Chloride 50 ML IV 1741 Epoetin Onofre 20,000 U ONCE A WEEK 09/29 1030 10/06 MS 1020 Escitalopram Oxalate 10 MG DAILY 09/23 1000 AC 10/07 PO 0855 Insulin Aspart 0 TIDAC/HS 10/06 1700 10/07 MS 1659 Insulin Detemir 20 UNITS 8AM 09/30 0800 10/06 MS 0807 Lidocaine/Diphenhydr/ 5 ML Q4-6 PRN PRN 09/30 1530 AC 10/03 Alum/Mg/Simeth PO 2130 Magnesium Sulfate 1 GM ONCE ONE 10/07 1145 KS 10/07 Dextrose/Water 100 ML IV 10/07 1544 1230 Metoprolol Succinate 12.5 MG DAILY 09/23 1000 AC 10/07 PO 0856 Mycophenolate Mofetil 1,000 MG BID 10/07 2200 KS PO Mycophenolate Mofetil 500 MG BID 10/07 2200 PO Mycophenolate Mofetil 500 MG BID 04/03 1000 DC 10/07 PO 0855 Omeprazole 20 MG DAILY AC 10/03 1334 AC 10/07 PO 0614 Tacrolimus 1.5 MG 10/08 08 AC PO Tacrolimus 0.75 MG 10/01 08 DC 10/07 PO 0855 Tacrolimus 2 MG 09/30 08 AC 10/07 PO 0855 Tramadol HCl 25 MG ONCE ONE 10/06 2229 DC 10/06 PO 10/06 Vital Signs & I&O Last 24 Hrs of Vitals and I&O: Vital Signs Date Time Temp Pulse Resp B/P B/P Pulse O2 O2 Flow FiO2 Mean Ox Delivery Rate 10/07 1521 Nasal 2.0L Cannula 10/07 1517 Nasal 2.0L Cannula 10/07 1436 97.6 62 18 140/70 93 Room Air 10/07 0856 69 120/60 10/07 0855 70 120/60 / 0800 Room Air / 0650 98.3 60 18 138/72 95 Room Air / 2350 98.3 61 16 136/76 95 Room Air Intake & Output 10/07 1600 10/07 0800 04/06 0000 Intake Total 290 350 360 Output Total 800 650 425 Balance -510 -300 -65 Intake, IV 50 Intake, Oral 240 350 360 Number 2 Bowel Movements Output, Urine 800 650 425 Patient 205 lb Weight Weight Bed scale Measurement Method Impression/Plan Impression/Plan Impression/Plan: Head: atraumatic, normal appearance Eyes: Bilateral: normal appearance, PERRL, EOMI. Ears, Nose, Throat: normal pharynx, normal ENT inspection, hearing grossly normal Neck: normal inspection, supple, full range of motion, no midline tenderness Respiratory: normal breath sounds, chest non-tender, no respiratory distress, quiet respiration, lungs clear Cardiovascular: normal peripheral pulses, irregularly irregular, norml femoral pulses equa Peripheral Pulses: 4+ carotid (R), 4+ carotid (L) Gastrointestinal: normal bowel sounds, soft, non-tender, no organomegaly Back: normal inspection, normal range of motion, no vertebral tenderness Extremities: no edema, pelvis stable,s/p debridement and in dressing Neurologic/Psych: normal Reflexes: 2+: bicep (R), bicep (L). Lymphatic: no anterior cervical fortunato avf intact IMPRESSION This is a gentleman with s/p renal transplant with infected toe with osteo s/p surg * ON rx for - Infected foot with fever on admission MRSA sepsis- in a pt who is immunosupp (recent toe amputation with osteo, s/p complete debridement of osteo with toe amputation and wound closure on 09/09/17) now - MRSA infection and resolving sepsis, now s/p angioplasty of peroneal artery and wound redebridement of the foot. PT now has a wound vac, and on dapto, and would need snf abx. No sig endocarditis noted in junior, now with poor wound healing and ongoing eval for further plan * Improving leukopenia and anemia - pt on immunosupp rx, was on cell cept which is held and Tacrolimus dose is reduced, normal flow. - was on daily neupogen 300 mcg, and CMV viral load neg * Mild odynophagia with endoscopy essentially unremarkable except for atrophic gastritis annd prob gastropersis * Diarrhea has improved * REsolved delirium without Sig neuro deficit * MRI showing very small punctate lesions prob ateromatous small emboli, on anticoag, and statin * PT with Pafib in Sinus and sig atheromatous aorta, small pfo, - on eloquis * Prolonged qtc, previous low mag need to continue to monitor * REsolving SHIRA with CKD s/p renal transplant, creat now 1.6 (recent contrast use) * DM insulin requiring endo onboard * PVD, previous history of stoke, and previous toe amputation, now angioplasty * Previous secondary hyperparathyroid. Sig autonomic dysfunction was on fludocortisone * Pafib on eliquis (in sinus on amiodarone) (being dosed for renal function) now held on heparin * Depression and anxiety * Peripheral neuropathy * Mild ekg changes with slight elevated troponin stable REC * COnt abx * Can increase tacrolimus * mycophenolate 500 bid * cont anticoag * WOund vac, vacular note reviewed * Daily tacrolimus level and will adjust dose subsequently * ID and Podiatry, vascular, Cardio,Endo, GI and renal following * EKG monitoring per cardio * Cont metoprolol, statin, amio, antidepressant lexapro * Keep sugars less than 150 * Once ambulatory start his home dose of fludrocortizone
[2017-10-07] MEDS ORDERED: FAMOTIDINE20 M1 PO (19:28)
[2017-10-07 22:42] VITALS: BP 150/80
[2017-10-08 05:54] LABS: ABSOLUTE BASOPHIL COUNT 0 /CUMM (0.0-0.2); ABSOLUTE EOSINOPHIL COUNT 0.1 /CUMM (0.0-0.7); ABSOLUTE GRANULOCYTE CT 5.7 /CUMM (1.4-6.5); ABSOLUTE LYMPH COUNT 0.9 /CUMM (1.2-3.4); ABSOLUTE MONOCYTE COUNT 0.5 /CUMM (0.10-0.60); BASOPHIL % 0.7 % (0.0-2.0); EOSINOPHIL % 1.5 % (0-5); GRANULOCYTE % 78.4 % (42.2-75.2); HEMATOCRIT 29.2 % (42-52); MEAN CORPUSCULAR HGB 26.9 PG (27.0-31.0); MEAN CORPUSCULAR HGB CONC 31.6 G/DL (33.0-37.0); MEAN CORPUSCULAR VOLUME 85.1 FL (80.0-94.0); MEAN PLATELET VOLUME 7.8 FL (7.4-10.4); PLATELET COUNT 246 /CUMM (130-400); RBC DISTRIBUTION WIDTH 14.3 % (11.5-14.5); RED BLOOD CELL CT 3.43 /CUMM (4.70-6.10); WHITE BLOOD CELL COUNT 7.3 /CUMM (4.8-10.8)
[2017-10-08 07:41] VITALS: BP 146/76
--- NOTE | 2017-10-08 09:07 | PN- Diabetes ---
Assessment/Plan Diabetes Assessment: This 71-year-old male has a long-standing history of diabetes with severe complications. He also has a renal transplant. He entered the hospital with infection in his right foot. The patient states he feels okay. He now has a wound VAC on his right foot. His odynophagia has subsided and he is eating more. With that yesterday his blood sugars became more elevated. Fingerstick blood sugars yesterday were 159 before breakfast, 247 before lunch, 390 before dinner, and 282 at bedtime. This morning his fingerstick blood sugar is 300. Plan: The patient's blood sugars have become much higher now that he is eating better. Suggest increase the Levemir to 24 units once a day. We should also adjust the patient's sliding scale NovoLog. Sliding scale NovoLog before meals should be 80-150 give 3 units NovoLog, 151-200 give 5 units NovoLog, 201-250 give 6 units NovoLog, 251-300 give 7 units NovoLog, 301-350 give 8 units NovoLog, 351-400 give 9 units NovoLog. Bedtime sliding scale NovoLog should stay the same. Subjective Subjective: Feels improved. Eating normal Review of Systems Constitutional: Denies: chills, fever. Cardiovascular: Denies: chest pain. Respiratory: Denies: cough, short of breath. Gastrointestinal: Denies: abdominal pain, nausea, vomiting. Genitourinary: Denies: dysuria. Objective Last 24 Hrs of Vital Signs/I&O Vital Signs Date Time Temp Pulse Resp B/P B/P Pulse O2 O2 Flow FiO2 Mean Ox Delivery Rate 10/08 740 97.9 63 18 146/76 95 Room Air 10/07 2242 98.3 64 20 150/80 97 10/07 1521 Nasal 2.0L Cannula 10/07 1517 Nasal 2.0L Cannula 10/07 1436 97.6 62 18 140/70 93 Room Air Intake & Output 10/08 1600 10/08 0800 10/08 0000 Intake Total 240 300 Output Total 1000 975 Balance -760 -675 Intake, Oral 240 300 Output, Urine 1000 975 Patient 214 lb Weight Vital Signs Date Time Temp Pulse Resp B/P B/P Pulse O2 O2 Flow FiO2 Mean Ox Delivery Rate 10/08 0641 97.9 63 18 146/76 95 Room Air 10/07 2242 98.3 64 20 150/80 97 10/07 1521 Nasal 2.0L Cannula 10/07 1517 Nasal 2.0L Cannula 10/07 1436 97.6 62 18 140/70 93 Room Air Intake & Output 10/08 1600 10/08 0800 10/08 0000 Intake Total 240 300 Output Total 1000 975 Balance -760 -675 Intake, Oral 240 300 Output, Urine 1000 975 Patient 214 lb Weight Physical Exam General Appearance: alert, awake Head: normal appearance Neck: normal inspection Respiratory: normal breath sounds Cardiovascular: regular rate/rhythm Abdomen: normal bowel sounds, soft Extremities: right foot wound VAC
--- NOTE | 2017-10-08 11:47 | PN- Housestaff ---
Subjective Follow-up For: Osteomyelitis Positive blood cultures New left bundle branch block SHIRA in Renal transplant patient Neuropenia AMS Complaints: no complaints Tele-Events Since Last Visit: Off telemetry Subjective: Patient was seen and examined this morning. He is doing fine and was able to eat more now. He remained hemodynamically stable. His temperature was 97.9, pulse was 63, respiratory rate 18 and blood pressure was 146/76 and he was saturating 95% on room air. His blood sugars were slightly elevated and his blood sugar before dinner was 390 and 282 at bedtime. He was seen by Dr. Martinez this morning and we will add chest his sliding scale as well as Levemir accordingly. Review of Systems Constitutional: Denies: chills, diaphoresis. Cardiovascular: Denies: chest pain, edema. Respiratory: Denies: cough, hemoptysis. Gastrointestinal: Denies: bloating, constipation. Genitourinary: Denies: dysuria, frequency. Musculoskeletal: Denies: back pain, gout. Objective Last 24 Hrs of Vital Signs/I&O Vital Signs Date Time Temp Pulse Resp B/P B/P Pulse O2 O2 Flow FiO2 Mean Ox Delivery Rate 10/08 0831 63 146/76 10/08 0931 63 146/76 10/08 0741 97.9 63 18 146/76 95 Room Air 10/07 2242 98.3 64 20 150/80 97 10/07 1521 Nasal 2.0L Cannula 10/07 1517 Nasal 2.0L Cannula 10/07 1436 97.6 62 18 140/70 93 Room Air Intake & Output 10/08 1600 10/08 0800 10/08 0000 Intake Total 200 240 300 Output Total 1000 975 Balance 200 -760 -675 Intake, Oral 200 240 300 Output, Urine 1000 975 Patient 214 lb Weight Physical Exam General Appearance: Oriented X3, Cooperative, No Acute Distress Cardiovascular: Normal S1, Normal S2 Lungs: Normal Air Movement Abdomen: Soft, No Tenderness Current Medications: Current Medications Sig/Ira Start time Last Medication Dose Route Stop Time Status Admin Acetaminophen 650 MG .STK-MED ONE 10/07 2145 DC PO 10/07 2146 Acetaminophen 650 MG Q6P PRN 09/22 1600 AC 10/07 PO 214 Amiodarone HCl 100 MG DAILY 09/23 1000 AC 10/08 PO 0931 Apixaban 5 MG BID 10/06 1500 AC 10/08 PO 0931 Benzocaine/Menthol 1 CELIA Q2P PRN 09/30 0100 AC 09/30 PO 0118 Calcium/Vitamin D 500 MG DAILY 09/22 1929 AC 10/08 PO 0931 Daptomycin 500 MG Q24H 09/28 1830 AC 10/07 Sodium Chloride 50 ML IV 1741 Epoetin Onofre 20,000 U ONCE A WEEK 09/29 1030 AC 10/06 SC 1020 Escitalopram Oxalate 10 MG DAILY 09/23 1000 AC 10/08 PO 0931 Famotidine 20 MG DAILY PRN 10/07 1930 CAN PO Insulin Aspart 0 TIDAC/HS 10/06 1700 r 10/08 SC 0807 Insulin Detemir 24 UNITS 8AM 10/09 0800 UNVr SC Insulin Detemir 4 UNITS ONCE ONE 10/08 1130 UNVr SC 10/08 1131 Insulin Detemir 20 UNITS 8AM 09/30 0800 DC 10/08 SC 0930 Lidocaine/Diphenhydr/ 5 ML Q4-6 PRN PRN 09/30 1530 AC 10/03 Alum/Mg/Simeth PO 2130 Magnesium Sulfate 1 GM ONCE ONE 10/07 1145 DC 10/07 Dextrose/Water 100 ML IV 10/07 1544 1230 Metoprolol Succinate 12.5 MG DAILY 09/23 1000 AC 10/08 PO 0931 Mycophenolate Mofetil 1,000 MG BID 10/07 2200 DC PO Mycophenolate Mofetil 500 MG BID 10/07 2200 AC 10/08 PO 0930 Mycophenolate Mofetil 500 MG BID 10/04 1000 DC 10/07 PO 0855 Omeprazole 20 MG DAILY AC 10/03 1334 AC 10/08 PO 0531 Tacrolimus 1.5 MG 0810/08 0800 AC 10/08 PO 0935 Tacrolimus 0.75 MG 10/01 0800 DC 10/07 PO 0855 Tacrolimus 2 MG 09/30 0800 AC 10/08 PO 0935 Last 24 Hrs of Lab/Joel Results Last 24 Hrs of Labs/Mics: Laboratory Tests 10/08/17 0530: Anion Gap 9, Estimated GFR 50 L, BUN/Creatinine Ratio 17.9, Magnesium 2.0, CBC w Diff MAN DIFF ORDERED, RBC 3.43 L, MCV 85.1, MCH 26.9 L, MCHC 31.6 L, RDW 14.3, MPV 7.8, Gran % 78.4 H, Lymphocytes % 12.2 L, Monocytes % 7.2, Eosinophils % 1.5, Basophils % 0.7, Absolute Granulocytes 5.7, Segmented Neutrophils 62, Band Neutrophils 10 H, Absolute Lymphocytes 0.9 L, Lymphocytes 21, Monocytes 4, Absolute Monocytes 0.5, Eosinophils 2, Absolute Eosinophils 0.1 , Absolute Basophils 0, Metamyelocytes 1, Nucleated RBCs 1 H, Platelet Estimate ADEQUATE, Polychromasia 1+, Hypochromic-Microcytic 1+, Anisocytosis 1+, Macrocytic Cells 1+, Tacrolimus Pending Assessment/Plan Assessment: Patient is 71-year-old male with past medical history significant for end-stage renal disease status post renal transplant on immunosuppressants, history of paroxysmal atrial fibrillation on anticoagulation, dyslipidemia, hypertension, history of CVA, insulin-dependent diabetes, osteomyelitis status post amputation of right and left third toes and left great toe came with malaise nausea, vomiting, diarrhea and have 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 During hospital stay we will address following problems Problem list Problem #1 sepsis secondary to right foot osteomyelitis status post angioplasty for concurrent peripheral vascular disease Problem #2 neutropenia and anemia in setting of chronic kidney disease status post renal failure Problem #3 AK I want CK D Nephrology on both We will continue all his immunosuppressants. His tacrolimus was recommended by nephrology to increased to 3.5 yesterday. We will confirm with nephrology as patient is still on 1.5. We will increase dose after confirming with nephrology today. Tacrolimus levels are still pending Oral intake of fluids are encouraged MMF was recommended by nephrology to increase 2000 mg twice a day. Patient is still on 500 twice a day we will confirm with nephrology Of note patient was discussed on phone with Dr. Shah at noon and he advised to increase his MMF to thousand milligrams daily but he will see the patient later today and would recommend regarding tacrolimus dose and we will adjust dose accordingly. Problem #4 diarrhea Negative C. difficile Resolved diarrhea Problem #5 anemia most likely due to CK D Problem #6 new onset left bundle branch block with elevated troponin most likely in the setting of infection ACS was ruled out his troponin peaked 0.18 Problem #7 chronic issues including peripheral vascular disease, paroxysmal atrial fibrillation, hypertension and dyslipidemia Will continue his medications including anticoagulation Problem #8 insulin-dependent diabetes Endocrinology on board We will increase his Levemir from 20 units to 25 units and we will adjust sliding scale according to Dr. Breen's recommendations Problem List: 1. Renal transplant recipient 2. Left bundle branch block Pain Ratin Pain Location: Not applicable Pain Goal: Remain pain free Pain Plan: Tylenol Tomorrow's Labs & Rationales: CBC and basic electrolyte panel
--- NOTE | 2017-10-08 13:23 | PN- Pulmonary ---
Subjective HPI/Critical Care Issues: Patient was seen and examined this morning. He is doing fine and was able to eat more now. He remained hemodynamically stable. His temperature was 97.9, pulse was 63, respiratory rate 18 and blood pressure was 146/76 and he was saturating 95% on room air. His blood sugars were slightly elevated and his blood sugar before dinner was 390 and 282 at bedtime. He was seen by Dr. Martinez this morning and we will add chest his sliding scale as well as Levemir accordingly. Review of Systems Constitutional: Denies: chills, diaphoresis. Cardiovascular: Denies: chest pain, edema. Respiratory: Denies: cough, hemoptysis. Gastrointestinal: Denies: bloating, constipation. Genitourinary: Denies: dysuria, frequency. Musculoskeletal: Denies: back pain, gout. Objective Current Medications: Current Medications Sig/Ira Start time Last Medication Dose Route Stop Time Status Admin Acetaminophen 650 MG .STK-MED ONE 10/07 2145 DC PO 10/07 214 Acetaminophen 650 MG Q6P PRN 09/22 1600 AC 10/07 PO 2146 Amiodarone HCl 100 MG DAILY 09/23 1000 AC 10/08 PO 0931 Apixaban 5 MG BID 10/06 1500 AC 10/08 PO 0931 Benzocaine/Menthol 1 CELIA Q2P PRN 09/30 0100 AC 09/30 PO 0118 Calcium/Vitamin D 500 MG DAILY 09/22 1929 AC 10/08 PO 0931 Daptomycin 500 MG Q24H 09/28 1830 AC 10/07 Sodium Chloride 50 ML IV 1741 Epoetin Onofre 20,000 U ONCE A WEEK 09/29 1030 AC 10/06 SC 1020 Escitalopram Oxalate 10 MG DAILY 09/23 1000 AC 10/08 PO 0931 Famotidine 20 MG DAILY PRN 10/07 1930 CAN PO Insulin Aspart 0 TIDAC/HS 10/06 1700 AC 10/08 SC 1230 Insulin Detemir 24 UNITS 8AM 10/09 0800 AC SC Insulin Detemir 4 UNITS ONCE ONE 10/08 1130 DC 10/08 SC 10/08 1131 1230 Insulin Detemir 20 UNITS 8AM 09/30 0800 DC 10/08 SC 0930 Lidocaine/Diphenhydr/ 5 ML Q4-6 PRN PRN 09/30 1530 AC 10/03 Alum/Mg/Simeth PO 2130 Magnesium Sulfate 1 GM ONCE ONE 10/07 1145 DC 10/07 Dextrose/Water 100 ML IV 10/07 1544 1230 Metoprolol Succinate 12.5 MG DAILY 09/23 1000 AC 10/08 PO 0931 Mycophenolate Mofetil 1,000 MG BID 10/08 2200 AC PO Mycophenolate Mofetil 500 MG ONCE ONE 10/08 1230 DC PO 10/08 1231 Mycophenolate Mofetil 1,000 MG BID 10/07 2200 DC PO Mycophenolate Mofetil 500 MG BID 10/07 2200 DC 10/08 PO 0930 Omeprazole 20 MG DAILY AC 10/03 1334 AC 10/08 PO 0531 Tacrolimus 1.5 MG 10/08 0800 AC 10/08 PO 0935 Tacrolimus 2 MG 09/30 0800 AC 10/08 PO 0935 Vital Signs & I&O Last 24 Hrs of Vitals and I&O: Vital Signs Date Time Temp Pulse Resp B/P B/P Pulse O2 O2 Flow FiO2 Mean Ox Delivery Rate 10/08 930 63 146/76 10/08 0931 63 146/76 10/08 0741 97.9 63 18 146/76 95 Room Air 10/07 2242 98.3 64 20 150/80 97 10/07 1521 Nasal 2.0L Cannula 10/07 1517 Nasal 2.0L Cannula 10/07 1436 97.6 62 18 140/70 93 Room Air Intake & Output 10/08 1600 10/08 0800 10/08 0000 Intake Total 200 240 300 Output Total 375 1000 975 Balance -175 -760 -675 Intake, Oral 200 240 300 Output, Urine 375 1000 975 Patient 214 lb Weight Impression/Plan Impression/Plan Impression/Plan: Head: atraumatic, normal appearance Eyes:Bilateral: normal appearance, PERRL, EOMI. Ears, Nose, Throat: normal pharynx, normal ENT inspection, hearing grossly normal Neck: normal inspection, supple, full range of motion, no midline tenderness Respiratory: normal breath sounds, chest non-tender, no respiratory distress, quiet respiration, lungs clear Cardiovascular: normal peripheral pulses, irregularly irregular, norml femoral pulses equa Peripheral Pulses: 4+ carotid (R), 4+ carotid (L) Gastrointestinal: normal bowel sounds, soft, non-tender, no organomegaly Back: normal inspection, normal range of motion, no vertebral tenderness Extremities: no edema, pelvis stable,s/p debridement and in dressing with wound vac in place Neurologic/Psych: normal Reflexes:2+: bicep (R), bicep (L). Lymphatic: no anterior cervical adenavf intact IMPRESSION This is a gentleman with s/p renal transplant with infected toe with osteo s/p surg * ON rx for - Infected foot with fever on admission MRSA sepsis- in a pt who is immunosupp (recent toe amputation with osteo, s/p complete debridement of osteo with toe amputation and wound closure on 09/09/17) now - MRSA infection and resolving sepsis. s/p angioplasty of peroneal artery and wound redebridement of the foot. PT now has a wound vac, and on dapto, and would need watermelon inspector abx. No sig endocarditis noted in junior. Poor wound healing and ongoing eval for further plan if he does not heal may need bka * Transient neutopenia and anemia - was on neupogen / cmv viral load neg, now his mycophenolate has been reduce to 500 bid and pt back on his original tacrolimus dose (3.5 total) * Resolved odynophagia with endoscopy essentially unremarkable except for atrophic gastritis annd prob gastropersis * Resolving Diarrhea has improved * REsolved delirium without Sig neuro deficit * MRI showing very small punctate lesions prob ateromatous small emboli, on anticoag, and statin * PT with Pafib in Sinus and sig atheromatous aorta, small pfo, - on eloquis * Prolonged qtc, previous low mag need to continue to monitor * REsolving SHIRA with CKD s/p renal transplant, creat now 1.4 (recent contrast use) * DM insulin requiring endo onboard * PVD, previous history of stoke, and previous toe amputation, now angioplasty * Previous secondary hyperparathyroid. Sig autonomic dysfunction was on fludocortisone * Pafib on eliquis (in sinus on amiodarone) (being dosed for renal function) now held on heparin * Depression and anxiety * Peripheral neuropathy * Resolved Mild ekg changes with slight elevated troponin stable REC * COnt abx * Cont current dose of tacrolimus * mycophenolate 500 bid * cont anticoag * WOund vac, vacular note reviewed * Daily tacrolimus level and will adjust dose subsequently * ID and Podiatry, vascular, Cardio,Endo, GI and renal following * EKG monitoring per cardio * Cont metoprolol, statin, amio, antidepressant lexapro * Keep sugars less than 150 * Once ambulatory start his home dose of fludrocortizone
--- NOTE | 2017-10-08 14:25 | PN- Nephrology ---
Assessment/Plan Nephrology Assessment: 1. CKD stage III status post donor kidney transplant in 2015. He is to be on Envarsus XR (tacrolimus) 3.5 mg a day. He was also on CellCept, 1000 mg twice a day. 2. SHIRA - significantly improved likely due to better hydration although contrast nephropathy and/or vancomycin toxicity may have played a role; serum creatinine again approaching baseline 3. 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 Necrotic wound/osteomyelitis right foot 5. Episodic confusion - MRI --> ?possible multiple microemboli -resolved 6. Leukopenia/neutropenia -resolved Suggestion: 1. Entertained his Envarsus XR at 3.5 mg /day 2. MMF 1000 mg twice a day Subjective Subjective: The patient feels well feels well. He tells me that he is taking 3.5 mg of the tacrolimus daily. He was also taking 1000 mg of MMF twice a day. He was taking Envarsus Objective Vital Signs and I&Os Vital Signs Date Time Temp Pulse Resp B/P B/P Pulse O2 O2 Flow FiO2 Mean Ox Delivery Rate 10/08 0831 63 146/76 10/08 0931 63 146/76 10/08 0741 97.9 63 18 146/76 95 Room Air 10/07 2242 98.3 64 20 150/80 97 / 1521 Nasal 2.0L Cannula 10/07 1517 Nasal 2.0L Cannula 10/07 1436 97.6 62 18 140/70 93 Room Air Intake & Output 10/08 1600 10/08 0400 10/07 1600 10/07 0400 10/06 1600 10/06 0400 Intake Total 440 300 640 360 978 330 Output Total 2035 194 4872 425 1300 800 Balance -935 -675 -810 -65 -322 -470 Intake, IV 50 798 90 Intake, Oral 440 300 590 360 180 240 Number 2 Bowel Movements Output, Urine 4353 300 0265 425 1300 800 Patient 214 lb 205 lb 220 lb Weight Weight Bed scale Measurement Method Physical Exam: General: Well-developed white male in NAD Skin: No rash or jaundice; HEENT: Conjunctivae pale, sclerae anicteric, mucous membranes moist Neck: Without masses or thyromegaly, no supraclavicular or cervical adenopathy Chest: Clear to P&A Heart: Regular rate and rhythm without S3 or rub Abdomen: Soft and nontender without palpable masses or organomegaly Extremities: Without cyanosis or edema; right foot dressing intact wound VAC on right foot Neuro: Awake, alert and oriented, no focal findings, no asterixis or myoclonus Current Medications: Current Medications Sig/Ira Start time Last Medication Dose Route Stop Time Status Admin Acetaminophen 650 MG .STK-MED ONE 10/07 2146 DC PO 10/07 214 Acetaminophen 650 MG Q6P PRN 09/22 1600 AC 10/07 PO 2146 Amiodarone HCl 100 MG DAILY 09/23 1000 AC 10/08 PO 0931 Apixaban 5 MG BID 10/06 1500 AC 10/08 PO 0931 Benzocaine/Menthol 1 CELIA Q2P PRN 09/30 0100 AC 09/30 PO 0118 Calcium/Vitamin D 500 MG DAILY 09/22 1929 AC 10/08 PO 0931 Daptomycin 500 MG Q24H 09/28 1830 AC 10/07 Sodium Chloride 50 ML IV 1741 Epoetin Onofre 20,000 U ONCE A WEEK 09/29 1030 AC 10/06 SC 1020 Escitalopram Oxalate 10 MG DAILY 09/23 1000 AC 10/08 PO 0931 Famotidine 20 MG DAILY PRN 10/07 1930 CAN PO Insulin Aspart 0 TIDAC/HS 10/06 1700 AC 10/08 SC 1230 Insulin Detemir 24 UNITS 8AM 10/09 0800 SC Insulin Detemir 4 UNITS ONCE ONE 10/08 1130 DC 10/08 SC 10/08 1131 1230 Insulin Detemir 20 UNITS 8AM 09/30 0800 DC 10/08 SC 0930 Lidocaine/Diphenhydr/ 5 ML Q4-6 PRN PRN 09/30 1530 AC 10/03 Alum/Mg/Simeth PO 2130 Magnesium Sulfate 1 GM ONCE ONE 10/07 1145 DC 10/07 Dextrose/Water 100 ML IV 10/07 1544 1230 Metoprolol Succinate 12.5 MG DAILY 09/23 1000 AC 10/08 PO 0931 Mycophenolate Mofetil 1,000 MG BID 10/08 2200 AC PO Mycophenolate Mofetil 500 MG ONCE ONE 10/08 1230 DC 10/08 PO 10/08 1231 1346 Mycophenolate Mofetil 500 MG BID 10/07 2200 DC 10/08 PO 0930 Omeprazole 20 MG DAILY AC 10/03 1334 AC 10/08 PO 0531 Tacrolimus 1.5 MG 10/08 08 AC 10/08 PO 0935 Tacrolimus 2 MG 09/30 08 AC 10/08 PO 0935 Results Pertinent Lab Results: Laboratory Tests 10/08 10/08 10/07 0600 0530 0656 Chemistry Sodium (137 - 145 mmol/L) 138 Potassium (3.5 - 5.1 mmol/L) 5.9 H Chloride (98 - 107 mmol/L) 100 Carbon Dioxide (22 - 30 mmol/L) 30 Anion Gap (5 - 16) 9 BUN (9 - 20 mg/dL) 25 H Creatinine (0.7 - 1.2 mg/dL) 1.4 H Estimated GFR (>60 ml/min) 50 L BUN/Creatinine Ratio (7 - 25 %) 17.9 Magnesium (1.6 - 2.3 mg/dL) 2.0 Hematology CBC w Diff MAN DIFF ORDERED WBC (4.8 - 10.8 /CUMM) 7.3 RBC (4.70 - 6.10 /CUMM) 3.43 L Hgb (14.0 - 18.0 G/DL) 9.3 L Hct (42 - 52 %) 29.2 L MCV (80.0 - 94.0 FL) 85.1 MCH (27.0 - 31.0 PG) 26.9 L MCHC (33.0 - 37.0 G/DL) 31.6 L RDW (11.5 - 14.5 %) 14.3 Plt Count (130 - 400 /CUMM) 246 MPV (7.4 - 10.4 FL) 7.8 Gran % (42.2 - 75.2 %) 78.4 H Lymphocytes % (20.5 - 51.1 %) 12.2 L Monocytes % (1.7 - 9.3 %) 7.2 Eosinophils % (0 - 5 %) 1.5 Basophils % (0.0 - 2.0 %) 0.7 Absolute Granulocytes (1.4 - 6.5 /CUMM) 5.7 Segmented Neutrophils (42.2 - 75.2 %) 62 Band Neutrophils (0.0 - 5.0 %) 10 H Absolute Lymphocytes (1.2 - 3.4 /CUMM) 0.9 L Lymphocytes (20.5 - 51.1 %) 21 Monocytes (1.7 - 9.3 %) 4 Absolute Monocytes (0.10 - 0.60 /CUMM) 0.5 Eosinophils (0 - 5.0 %) 2 Absolute Eosinophils (0.0 - 0.7 /CUMM) 0.1 Absolute Basophils (0.0 - 0.2 /CUMM) 0 Metamyelocytes (0.0 - 1.0 %) 1 Nucleated RBCs (0.0 - 0.0 /100WBC) 1 H Platelet Estimate (ADEQUATE) ADEQUATE Polychromasia 1+ Hypochromic-Microcytic 1+ Anisocytosis 1+ Macrocytic Cells 1+ Haptoglobin Pending Toxicology Tacrolimus Pending Pending 10/07 10/06 0656 1215 Chemistry Sodium (137 - 145 mmol/L) 140 Potassium (3.5 - 5.1 mmol/L) 5.1 Chloride (98 - 107 mmol/L) 101 Carbon Dioxide (22 - 30 mmol/L) 27 Anion Gap (5 - 16) 12 BUN (9 - 20 mg/dL) 22 H Creatinine (0.7 - 1.2 mg/dL) 1.3 H Estimated GFR (>60 ml/min) 55 L BUN/Creatinine Ratio (7 - 25 %) 16.9 Magnesium (1.6 - 2.3 mg/dL) 1.9 Coagulation APTT Cancelled Hematology CBC w Diff MAN DIFF ORDERED WBC (4.8 - 10.8 /CUMM) 8.1 RBC (4.70 - 6.10 /CUMM) 3.23 L Hgb (14.0 - 18.0 G/DL) 8.9 L Hct (42 - 52 %) 27.4 L MCV (80.0 - 94.0 FL) 84.6 MCH (27.0 - 31.0 PG) 27.6 MCHC (33.0 - 37.0 G/DL) 32.6 L RDW (11.5 - 14.5 %) 14.1 Plt Count (130 - 400 /CUMM) 245 MPV (7.4 - 10.4 FL) 8.0 Gran % (42.2 - 75.2 %) 81.5 H Lymphocytes % (20.5 - 51.1 %) 10.8 L Monocytes % (1.7 - 9.3 %) 5.8 Eosinophils % (0 - 5 %) 1.4 Basophils % (0.0 - 2.0 %) 0.5 Absolute Granulocytes (1.4 - 6.5 /CUMM) 6.6 H Segmented Neutrophils (42.2 - 75.2 %) 73 Band Neutrophils (0.0 - 5.0 %) 6 H Absolute Lymphocytes (1.2 - 3.4 /CUMM) 0.9 L Lymphocytes (20.5 - 51.1 %) 10 L Monocytes (1.7 - 9.3 %) 5 Absolute Monocytes (0.10 - 0.60 /CUMM) 0.5 Eosinophils (0 - 5.0 %) 5 Absolute Eosinophils (0.0 - 0.7 /CUMM) 0.1 Absolute Basophils (0.0 - 0.2 /CUMM) 0 Metamyelocytes (0.0 - 1.0 %) 1 Polychromasia 1+ Poikilocytosis 1+ Anisocytosis 1+ Retic Count (0.5 - 2.0 %) 3.39 H Toxicology Tacrolimus Pending 10/06 10/06 10/06 UNK 0650 0016 Chemistry Sodium (137 - 145 mmol/L) 139 Potassium (3.5 - 5.1 mmol/L) 4.7 Chloride (98 - 107 mmol/L) 102 Carbon Dioxide (22 - 30 mmol/L) 27 Anion Gap (5 - 16) 10 BUN (9 - 20 mg/dL) 24 H Creatinine (0.7 - 1.2 mg/dL) 1.4 H Estimated GFR (>60 ml/min) 50 L BUN/Creatinine Ratio (7 - 25 %) 17.1 Magnesium (1.6 - 2.3 mg/dL) 1.9 Vitamin B12 (239 - 931 pg/mL) > 1000 H TSH (0.270 - 4.200 uIU/mL) 1.460 Coagulation PT (9.4 - 12.5 SEC) 16.3 H INR (0.90 - 1.17) 1.49 H APTT (25 - 37 SEC) 79 H Hematology CBC w Diff MAN DIFF ORDERED WBC (4.8 - 10.8 /CUMM) 11.7 H RBC (4.70 - 6.10 /CUMM) 3.26 L Hgb (14.0 - 18.0 G/DL) 9.0 L Hct (42 - 52 %) 27.3 L MCV (80.0 - 94.0 FL) 83.8 MCH (27.0 - 31.0 PG) 27.6 MCHC (33.0 - 37.0 G/DL) 32.9 L RDW (11.5 - 14.5 %) 14.3 Plt Count (130 - 400 /CUMM) 292 MPV (7.4 - 10.4 FL) 8.1 Gran % (42.2 - 75.2 %) 79.7 H Lymphocytes % (20.5 - 51.1 %) 10.8 L Monocytes % (1.7 - 9.3 %) 7.7 Eosinophils % (0 - 5 %) 1.2 Basophils % (0.0 - 2.0 %) 0.6 Absolute Granulocytes (1.4 - 6.5 /CUMM) 9.3 H Segmented Neutrophils (42.2 - 75.2 %) 63 Band Neutrophils (0.0 - 5.0 %) 13 H Absolute Lymphocytes (1.2 - 3.4 /CUMM) 1.3 Lymphocytes (20.5 - 51.1 %) 9 L Monocytes (1.7 - 9.3 %) 9 Absolute Monocytes (0.10 - 0.60 /CUMM) 0.9 H Eosinophils (0 - 5.0 %) 2 Absolute Eosinophils (0.0 - 0.7 /CUMM) 0.1 Absolute Basophils (0.0 - 0.2 /CUMM) 0.1 Metamyelocytes (0.0 - 1.0 %) 2 H Myelocytes (0 - 0 %) 2 H Platelet Estimate (ADEQUATE) ADEQUATE Polychromasia 1+ Hypochromic-Microcytic 1+ Poikilocytosis 2+ Anisocytosis 2+ Ovalocytes 2+ Toxicology Tacrolimus (() mcg/L) Cancelled 5.4
[2017-10-08 15:23] VITALS: BP 114/74
[2017-10-08 22:23] VITALS: BP 118/74
[2017-10-09 07:11] VITALS: BP 112/68
[2017-10-09 07:43] LABS: ABSOLUTE BASOPHIL COUNT 0 /CUMM (0.0-0.2); ABSOLUTE EOSINOPHIL COUNT 0.1 /CUMM (0.0-0.7); ABSOLUTE GRANULOCYTE CT 6.5 /CUMM (1.4-6.5); ABSOLUTE LYMPH COUNT 1.1 /CUMM (1.2-3.4); ABSOLUTE MONOCYTE COUNT 0.6 /CUMM (0.10-0.60); BASOPHIL % 0.5 % (0.0-2.0); EOSINOPHIL % 1.5 % (0-5); HEMATOCRIT 29.2 % (42-52); MEAN CORPUSCULAR HGB 27.9 PG (27.0-31.0); MEAN CORPUSCULAR HGB CONC 32.4 G/DL (33.0-37.0); MEAN CORPUSCULAR VOLUME 86.1 FL (80.0-94.0); MEAN PLATELET VOLUME 8.1 FL (7.4-10.4); PLATELET COUNT 248 /CUMM (130-400); RBC DISTRIBUTION WIDTH 14.6 % (11.5-14.5); WHITE BLOOD CELL COUNT 8.3 /CUMM (4.8-10.8)
--- NOTE | 2017-10-09 08:53 | PN- Housestaff ---
Subjective Follow-up For: Osteomyelitis SHIRA in Renal transplant patient Neuropenia AMS Tele-Events Since Last Visit: Patient remained in sinus rhythm with heart rate 6064 Subjective: No overnight events. Patient remained afebrileseen and examined this morning. Patient denied any chest pain, short of breath, nausea, vomiting, chills, fever, abdominal pain dysuria. He has portal on right chest for antibiotics. Review of Systems Constitutional: Reports: see HPI. Objective Last 24 Hrs of Vital Signs/I&O Vital Signs Date Time Temp Pulse Resp B/P B/P Pulse O2 O2 Flow FiO2 Mean Ox Delivery Rate 10/09 0932 62 112/65 10/09 0931 62 112/68 10/09 0711 98.0 62 18 112/68 97 Room Air 10/08 2223 98.4 64 18 118/74 95 Room Air 10/08 1523 98.0 67 18 114/74 95 Intake & Output 10/09 1600 10/09 0800 10/09 0000 Intake Total 380 500 Output Total 750 250 Balance -370 250 Intake, IV 100 Intake, Oral 380 400 Number 1 Bowel Movements Output, Urine 750 250 Patient 215 lb Weight Weight Bed scale Measurement Method Physical Exam General Appearance: Alert, Oriented X3, Cooperative Skin: echymosis on right arm Skin Temp/Moisture Exam: Warm/Dry Sepsis Skin Exam (color): Normal for Ethnicity HEENT: Atraumatic, PERRLA, EOMI Neck: Supple Cardiovascular: Normal S1, Normal S2 Lungs: Clear to Auscultation Abdomen: Soft, No Tenderness Neurological: Normal Speech, Strength at 5/5 X4 Ext, Normal Tone Extremities: Right toe amputation and dressing with sucction. Assessment/Plan Assessment: Patient is 71-year-old male with past medical history significant for end-stage renal disease status post renal transplant on immunosuppressants, history of paroxysmal atrial fibrillation on anticoagulation, dyslipidemia, hypertension, history of CVA, insulin-dependent diabetes, osteomyelitis status post amputation of right and left third toes and left great toe came with malaise nausea, vomiting, diarrhea and have 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 We'll follow the patient on telemetry floor for following problems: Sepsis secondary to osteomyelitis s/p amputation: -Sepsis has resolved. -Right foot osteomyelitis status post angioplasty. -Continue daptomycin Acute on chronic kidney injury: -Continue immunosuppressants -Nephrology recommendations -Tacrolimus level is 4.4 -Continue tacrolimus and mycophenolate for transplant kidney. History of diabetes: -Accu-Cheks -Continue insulin Lovenox History of GERD: -And omeprazole History of A. fib; -Continue home medications -Continue Eliquis History of hypertension and hyperlipidemia: -Continue home medications DVT Prophylaxis: -Mechanical and he is already on Eliquis Code Status: Full code Problem List: 1. Left bundle branch block 2. Osteomyelitis Pain Ratin Pain Location: none Pain Goal: Remain pain free Pain Plan: pain pathway Tomorrow's Labs & Rationales: cbc/bep
--- NOTE | 2017-10-09 09:44 | PN- Diabetes ---
Assessment/Plan Diabetes Assessment: Patient states he feels okay. He is eating well. We increased his Levemir yesterday to 24 units once a day. We also adjusted his sliding scale NovoLog before meals. His fingerstick blood sugar this morning before breakfast is improved at 150. The patient is on daptomycin for MRSA bacteremia which he has to continue until November [address] Dickinson. Plan: Suggest continue the present insulin regimen. We need to observe what his present insulin doses will achieve before making further changes. Patient's potassium is 5.9. This should be discussed with Dr. Shah who is seeing him in renal consult today. Subjective Subjective: Feels anxious Review of Systems Constitutional: Denies: chills, fever. Cardiovascular: Denies: chest pain. Respiratory: Denies: short of breath. Gastrointestinal: Denies: abdominal pain. Objective Last 24 Hrs of Vital Signs/I&O Vital Signs Date Time Temp Pulse Resp B/P B/P Pulse O2 O2 Flow FiO2 Mean Ox Delivery Rate 10/10 931 62 /10/0931 62 /10/0911 98.0 62 18 / 97 Room Air 10/08 2223 98.4 64 18 118/74 95 Room Air 10/08 1523 98.0 67 18 114/74 95 Intake & Output 10/09 1600 10/09 0000 Intake Total 380 500 Output Total 750 250 Balance -370 250 Intake, IV 100 Intake, Oral 380 400 Number 1 Bowel Movements Output, Urine 750 250 Patient 215 lb Weight Weight Bed scale Measurement Method Vital Signs Date Time Temp Pulse Resp B/P B/P Pulse O2 O2 Flow FiO2 Mean Ox Delivery Rate 10/10 931 62 112/65 10/09 0831 62 112/68 10/09 0611 98.0 62 18 112/68 97 Room Air 10/08 2223 98.4 64 18 118/74 95 Room Air 10/08 1523 98.0 67 18 114/74 95 Intake & Output 10/09 1600 10/10 0700 10/09 0000 Intake Total 380 500 Output Total 750 250 Balance -370 250 Intake, IV 100 Intake, Oral 380 400 Number 1 Bowel Movements Output, Urine 750 250 Patient 215 lb Weight Weight Bed scale Measurement Method Physical Exam General Appearance: alert, awake, comfortable Head: normal appearance Neck: normal inspection Respiratory: normal breath sounds Abdomen: normal bowel sounds Current Medications: Current Medications Sig/Ira Start time Last Medication Dose Route Stop Time Status Admin Acetaminophen 650 MG Q6P PRN 09/22 1600 AC 10/07 PO 2146 Amiodarone HCl 100 MG DAILY 09/23 1000 AC 10/09 PO 0932 Apixaban 5 MG BID 10/06 1500 AC 10/09 PO 0932 Benzocaine/Menthol 1 CELIA Q2P PRN 09/30 0100 AC 09/30 PO 0118 Calcium/Vitamin D 500 MG DAILY 09/22 1929 AC 10/09 PO 0931 Daptomycin 500 MG Q24H 09/28 1830 AC 10/08 Sodium Chloride 50 ML IV 1841 Epoetin Onofre 20,000 U ONCE A WEEK 09/29 1030 AC 10/06 TN 1020 Escitalopram Oxalate 10 MG DAILY 09/23 1000 AC 10/09 PO 0931 Insulin Aspart 0 TIDAC/HS 10/06 1700 AC 10/09 TN 0823 Insulin Detemir 24 UNITS 8AM 10/09 0800 AC 10/09 TN 0822 Insulin Detemir 4 UNITS ONCE ONE 10/08 1130 DC 10/08 TN 10/08 1131 1230 Insulin Detemir 20 UNITS 8AM 09/30 0800 AK 10/08 TN 0930 Lidocaine/Diphenhydr/ 5 ML Q4-6 PRN PRN 09/30 1530 AC 10/03 Alum/Mg/Simeth PO 2130 Metoprolol Succinate 12.5 MG DAILY 09/23 1000 AC 10/09 PO 0931 Mycophenolate Mofetil 1,000 MG BID 10/08 2200 AC 10/09 PO 0946 Mycophenolate Mofetil 500 MG ONCE ONE 10/08 1230 DC 10/08 PO 10/08 1231 1346 Mycophenolate Mofetil 500 MG BID 10/07 2200 DC 10/08 PO 0930 Omeprazole 20 MG DAILY AC 10/03 1334 AC 10/08 PO 0531 Tacrolimus 1.5 MG 0800 10/08 0800 AC 10/09 PO 0930 Tacrolimus 2 MG 0800 09/30 0800 AC 10/09 PO 0927 Findings Pertinent Lab/Joel Results: Laboratory Tests 10/09 614 Chemistry Sodium (137 - 145 mmol/L) 140 Potassium (3.5 - 5.1 mmol/L) 5.9 H Chloride (98 - 107 mmol/L) 101 Carbon Dioxide (22 - 30 mmol/L) 28 Anion Gap (5 - 16) 10 BUN (9 - 20 mg/dL) 27 H Creatinine (0.7 - 1.2 mg/dL) 1.5 H Estimated GFR (>60 ml/min) 46 L BUN/Creatinine Ratio (7 - 25 %) 18.0 Magnesium (1.6 - 2.3 mg/dL) 1.9 Hematology CBC w Diff MAN DIFF ORDERED WBC (4.8 - 10.8 /CUMM) 8.3 RBC (4.70 - 6.10 /CUMM) 3.40 L Hgb (14.0 - 18.0 G/DL) 9.5 L Hct (42 - 52 %) 29.2 L MCV (80.0 - 94.0 FL) 86.1 MCH (27.0 - 31.0 PG) 27.9 MCHC (33.0 - 37.0 G/DL) 32.4 L RDW (11.5 - 14.5 %) 14.6 H Plt Count (130 - 400 /CUMM) 248 MPV (7.4 - 10.4 FL) 8.1 Gran % (42.2 - 75.2 %) 78.0 H Lymphocytes % (20.5 - 51.1 %) 12.9 L Monocytes % (1.7 - 9.3 %) 7.1 Eosinophils % (0 - 5 %) 1.5 Basophils % (0.0 - 2.0 %) 0.5 Absolute Granulocytes (1.4 - 6.5 /CUMM) 6.5 Segmented Neutrophils (42.2 - 75.2 %) 70 Band Neutrophils (0.0 - 5.0 %) 10 H Absolute Lymphocytes (1.2 - 3.4 /CUMM) 1.1 L Lymphocytes (20.5 - 51.1 %) 10 L Monocytes (1.7 - 9.3 %) 5 Absolute Monocytes (0.10 - 0.60 /CUMM) 0.6 Eosinophils (0 - 5.0 %) 2 Absolute Eosinophils (0.0 - 0.7 /CUMM) 0.1 Absolute Basophils (0.0 - 0.2 /CUMM) 0 Metamyelocytes (0.0 - 1.0 %) 3 H Nucleated RBCs (0.0 - 0.0 /100WBC) 1 H Normocytic RBCs VERIFIED Normochromic RBCs VERIFIED
--- NOTE | 2017-10-09 12:12 | PN- Pulmonary ---
Subjective HPI/Critical Care Issues: No overnight events. Patient remained afebrileseen and examined this morning. Patient denied any chest pain, short of breath, nausea, vomiting, chills, fever, abdominal pain dysuria. He has portal on right chest for antibiotics. Has pain in his small joints of his hand Review of Systems Constitutional: Reports: see HPI. Objective Current Medications: Current Medications Sig/Ira Start time Last Medication Dose Route Stop Time Status Admin Acetaminophen 650 MG ONCE ONE 10/09 1000 CAN PO 10/09 1001 Acetaminophen 650 MG Q6P PRN 09/22 1600 AC 10/09 PO 1013 Amiodarone HCl 100 MG DAILY 09/23 1000 AC 10/09 PO 0932 Apixaban 5 MG BID 10/06 1500 AC 10/09 PO 0932 Benzocaine/Menthol 1 CELIA Q2P PRN 09/30 0100 AC 09/30 PO 0118 Calcium/Vitamin D 500 MG DAILY 09/22 1929 AC 10/09 PO 0931 Daptomycin 500 MG Q24H 09/28 1830 OH 10/08 Sodium Chloride 50 ML IV 1841 Epoetin Onofre 20,000 U ONCE A WEEK 09/29 1030 AC 10/06 HI 1020 Escitalopram Oxalate 10 MG DAILY 09/23 1000 AC 10/09 PO 0931 Insulin Aspart 0 TIDAC/HS 10/06 1700 AC 10/09 SC 0823 Insulin Detemir 24 UNITS 8AM 10/09 0800 AC 10/09 SC 0822 Lidocaine/Diphenhydr/ 5 ML Q4-6 PRN PRN 09/30 1530 AC 10/03 Alum/Mg/Simeth PO 2130 Metoprolol Succinate 12.5 MG DAILY 09/23 1000 AC 10/09 PO 0931 Mycophenolate Mofetil 1,000 MG BID 10/08 2200 AC 10/09 PO 0946 Mycophenolate Mofetil 500 MG ONCE ONE 10/08 1230 DC 10/08 PO 10/08 1231 1346 Mycophenolate Mofetil 500 MG BID 10/07 2200 DC 10/08 PO 0930 Omeprazole 20 MG DAILY AC 10/03 1334 AC 10/08 PO 0531 Tacrolimus 2 MG 0600 10/10 0600 AC PO Tacrolimus 1.5 MG 0600 10/10 0600 AC PO Tacrolimus 1.5 MG 0810/08 0800 DC 10/09 PO 0930 Tacrolimus 2 MG 0800 30 0800 DC 10/09 PO 0927 Vital Signs & I&O Last 24 Hrs of Vitals and I&O: Vital Signs Date Time Temp Pulse Resp B/P B/P Pulse O2 O2 Flow FiO2 Mean Ox Delivery Rate 10/09 0932 62 112/65 10/09 0931 62 112/68 10/09 0711 98.0 62 18 112/68 97 Room Air 10/08 2223 98.4 64 18 118/74 95 Room Air 10/08 1523 98.0 67 18 114/74 95 Intake & Output 10/09 1600 10/09 0800 10/09 0000 Intake Total 380 500 Output Total 750 250 Balance -370 250 Intake, IV 100 Intake, Oral 380 400 Number 1 Bowel Movements Output, Urine 750 250 Patient 215 lb Weight Weight Bed scale Measurement Method Impression/Plan Impression/Plan Impression/Plan: Head: atraumatic, normal appearance Eyes:Bilateral: normal appearance, PERRL, EOMI. Ears, Nose, Throat: normal pharynx, normal ENT inspection, hearing grossly normal Neck: normal inspection, supple, full range of motion, no midline tenderness Respiratory: normal breath sounds, chest non-tender, no respiratory distress, quiet respiration, lungs clear Cardiovascular: normal peripheral pulses, irregularly irregular, norml femoral pulses equa Peripheral Pulses: 4+ carotid (R), 4+ carotid (L) Gastrointestinal: normal bowel sounds, soft, non-tender, no organomegaly Back: normal inspection, normal range of motion, no vertebral tenderness Extremities: no edema, pelvis stable,s/p debridement and in dressing with wound vac in place Neurologic/Psych: normal Reflexes:2+: bicep (R), bicep (L). Lymphatic: no anterior cervical adenavf intact IMPRESSION This is a gentleman with s/p renal transplant with infected toe with osteo s/p surg * ON rx for - Infected foot with fever on admission MRSA sepsis- in a pt who is immunosupp (recent toe amputation with osteo, s/p complete debridement of osteo with toe amputation and wound closure on 09/09/17) now - MRSA infection and resolving sepsis. s/p angioplasty of peroneal artery and wound redebridement of the foot. PT now has a wound vac, and on dapto, and would need director service abx. No sig endocarditis noted in junior. Poor wound healing and ongoing eval for further plan if he does not heal may need bka * Transient neutopenia and anemia - was on neupogen / cmv viral load neg, now his mycophenolate has been reduce to 500 bid and pt back on his original tacrolimus dose (3.5 total)- levels a little low no * Resolved odynophagia with endoscopy essentially unremarkable except for atrophic gastritis annd prob gastropersis * Resolving Diarrhea has improved * REsolved delirium without Sig neuro deficit * MRI showing very small punctate lesions prob ateromatous small emboli, on anticoag, and statin * PT with Pafib in Sinus and sig atheromatous aorta, small pfo, - on eloquis * Prolonged qtc, previous low mag need to continue to monitor * REsolving SHIRA with CKD s/p renal transplant, creat now 1.4 (recent contrast use) * DM insulin requiring endo onboard * PVD, previous history of stoke, and previous toe amputation, now angioplasty * Previous secondary hyperparathyroid. Sig autonomic dysfunction was on fludocortisone * Pafib on eliquis (in sinus on amiodarone) (being dosed for renal function) now held on heparin * Depression and anxiety * Peripheral neuropathy * Resolved Mild ekg changes with slight elevated troponin stable REC * COnt abx * Cont current dose of tacrolimus, check levels again daily (dose increased few days ago) * mycophenolate 500 bid now can increast to 500 tid for now (Discussed with Dr. Gauthier his transplant nephro before) * Tylenol for pain and if his pain is severe can use tramadol prn (pt did get confused before) * IF pain in his hands are still worse in a day or two then can start plaquanil 200 mg qd * cont anticoag * WOund vac, vacular note reviewed, per podiatry no sig improvement and pt would probably need aka * Please ask vascular to see in am for reeval * Daily tacrolimus level and will adjust dose subsequently * ID and Podiatry, vascular, Cardio,Endo, GI and renal following * EKG monitoring per cardio * Cont metoprolol, statin, amio, antidepressant lexapro * Keep sugars less than 150 * Once ambulatory start his home dose of fludrocortizone
[2017-10-09 14:57] VITALS: BP 108/64
[2017-10-09 21:07] VITALS: BP 110/60
[2017-10-10 07:06] VITALS: BP 112/60
--- NOTE | 2017-10-10 07:26 | PN- Housestaff ---
Subjective Follow-up For: Osteomyelitis Positive blood cultures New left bundle branch block SHIRA in Renal transplant patient Neuropenia AMS Tele-Events Since Last Visit: Normal sinus rhythm/pursue heart block HR 6065 OH 0.24 Subjective: No acute events overnight. Patient states that his throat is better. States that he feels a little stronger today. Asking about discharge planning. Review of Systems Constitutional: Reports: see HPI. Objective Last 24 Hrs of Vital Signs/I&O Vital Signs Date Time Temp Pulse Resp B/P B/P Pulse O2 O2 Flow FiO2 Mean Ox Delivery Rate 10/10 0730 63 112/60 10/10 0730 63 112/60 10/10 0706 97.6 63 20 112/60 97 Room Air 10/09 2107 97.6 70 20 110/60 96 Room Air 10/09 1457 98.1 67 18 108/64 98 Intake & Output 10/10 1600 10/10 0800 10/10 0000 Intake Total 120 500 Output Total 625 950 Balance -505 -450 Intake, IV 100 Intake, Oral 120 400 Number 0 2 Bowel Movements Output, Urine 625 950 Patient 215 lb Weight Physical Exam General Appearance: Alert, Oriented X3, Cooperative Cardiovascular: Regular Rate, Normal S1, Normal S2 Lungs: Clear to Auscultation, Normal Air Movement Abdomen: Normal Bowel Sounds, Soft, No Tenderness Extremities: trace lower extremity edema bilaterally Vascular: 2+ right radial pulse, left AV fistula Assessment/Plan Assessment: A: Patient is a 71-year-old male with a PMH significant for ESRD status post renal transplant on tacrolimus and CellCept, paroxysmal atrial fibrillation on Eliquis , HTN, HLD, CVA, DM, with recent admission to [facility] for osteomyelitis , status post amputation of the right and left third toes and left great toe who presented to the [facility] ED complaining of a several day history of malaise, nausea, vomiting, diarrhea, poor appetite found to have 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 Problem list #Sepsis 2/2 to R foot osteomyelitils currently s/p angioplasty for concurrent PVD WBC 2.1 -> 13.2 -> 8.1 CRP >9 ESR 72 -> 49 Blood cultures + for MRSA Surgical cultures + for MRSA Arterial Doppler: Decreased flow is noted within the right anterior tibial artery, lower part of the left popliteal, and posterior tibial, anterior tibial and dorsalis pedis arteries. Repeat foot xr: post surgical changes TESS negative for vegetation but small PFO and atherosclerotic disease MRI + for foci most liekly embolic in origin and favoring bland > septic origin Baseline CPK 81, repeat 109 - switched to daptomycin from [facility]. co'ed statin due to risk of rhabdo. -Will require weekly CPK while on antibiotics -s/p proline -Discharge with daily antibiotics until October 20 to complete 4 week total course #neurtopenia + anemia in the setting of ckd s/p renal transplant WBC 1.2 -> 13.2 -> 7.5 Perpherial flow cytometry suggesting BM biopsy for MDS -stopped neupogen as WBC has improved -Follow-up hematology oncology recs #SHIRA on CKD, History of renal transplantation Creatinine 1.4 (baseline 1.2) Tacrolimus level 4.4 K+ 5.5 -monitor hyperkalemia and potassium restriction diet -renal function stable. Continue mycophenolate at 500 3 times a day -Continue tacrolimus level back to 3.5 mg daily as levels have fallen below 7 -Follow nephrology recommendations -Continue calcium/vitamin D #sore throat Rapid flu negative Strep throat culture negative CMV negative EGD: Atrophic gastritis and suggestion of gastroparesis status post gastric biopsie -Continue scheduled PPI and educate regarding antireflux regimen -Outpatient biopsy results -cont magic mouth wash -monitor vitals #continued loose stools - improving C.diff negative x2 cdiff pcr negative -avoid loose stool causing meds such as magox -possibly due to mycophenolate #Altered mental status/hallucinations Sudden onset of hallucinatinations and AMS Head CT negative -much improved after stopping dicyclomine, morphine , burproprion #H/H drop / anemia - cururently stable H/H 7.3 -> 9.6 s/p 1 unit during admission. Folate 12.2, B12 >1000, ferritin >1760, iron 28 -monitor cbc daily, currently stable -finished folinic acid 25 mg X7 days -cont epo -Continue to monitor #diabetes Maintain blood sugars less than 150 -cont endo recs #New onset left bundle branch block/mild elevated troponins Troponins 0.04, 0.18, 0.13 -Mild elevated troponins likely secondary to infection -Continue to follow cardiology recommendations #Chronic medical problems including PVD, paroxysmal A. fib, HTN, HLD, -Continue metoprolol, amiodarone, escitalopram, bupropion, apixaban, dicyclomine , Maalox, DVT prophylaxis: apixaban CODE STATUS: Full code Problem List: 1. PVD (peripheral vascular disease) 2. Atrophic gastritis 3. Loose stools 4. Sore throat 5. Renal transplant recipient 6. Osteomyelitis Pain Ratin Pain Location: none Pain Goal: Pain 4 or less Pain Plan: pain pathway Tomorrow's Labs & Rationales: cbc bep mag tacrolimus
[2017-10-10 07:57] LABS: ABSOLUTE BASOPHIL COUNT 0.1 /CUMM (0.0-0.2); ABSOLUTE EOSINOPHIL COUNT 0.1 /CUMM (0.0-0.7); ABSOLUTE GRANULOCYTE CT 5.7 /CUMM (1.4-6.5); ABSOLUTE LYMPH COUNT 1.2 /CUMM (1.2-3.4); ABSOLUTE MONOCYTE COUNT 0.5 /CUMM (0.10-0.60); BASOPHIL % 0.8 % (0.0-2.0); EOSINOPHIL % 1.5 % (0-5); GRANULOCYTE % 75.8 % (42.2-75.2); HEMATOCRIT 29.3 % (42-52); MEAN CORPUSCULAR HGB 27.9 PG (27.0-31.0); MEAN CORPUSCULAR HGB CONC 32.8 G/DL (33.0-37.0); MEAN CORPUSCULAR VOLUME 85.1 FL (80.0-94.0); MEAN PLATELET VOLUME 8.1 FL (7.4-10.4); PLATELET COUNT 243 /CUMM (130-400); RBC DISTRIBUTION WIDTH 14.4 % (11.5-14.5); RED BLOOD CELL CT 3.44 /CUMM (4.70-6.10); WHITE BLOOD CELL COUNT 7.5 /CUMM (4.8-10.8)
--- NOTE | 2017-10-10 09:48 | PN- Diabetes ---
Assessment/Plan Diabetes Assessment: Patient is a 71-year-old male with a PMH significant for ESRD status post renal transplant on tacrolimus and CellCept, paroxysmal atrial fibrillation on Eliquis , HTN, HLD, CVA, DM type 2, with recent admission to [facility] for osteomyelitis, status post amputation of the toes, was admitted for chronic right foot infection. He underwent angiogram, angioplasty of right peroneal artery, right foot procedure and wound vac placement on 09/27/2017. He had TESS done on 09/28/2017. Currently he is on Levemir 24 units daily, Novolog coverage before meals and Novolog coverage at bedtime. His FSGs were 150, 283, 164, 200 and 224. Plan: 1. increase Levemir to 28 units daily; 2. adjust Novolog coverage before meals; detail see the inpatient DM orders; 3. continue the current Novolog coverage at bedtime; 4. monitor FSGs; monitor electrolytes. will follow. Inpatient Diabetes Orders Before Each Meal: Bolus Insulin: Novolog < 80 mg/dl: no coverage 80-100 mg/dl: 5 units 101-120 mg/dl: 5 units 121-150 mg/dl: 5 units 151-200 mg/dl: 6 units 201-250 mg/dl: 7 units 251-300 mg/dl: 8 units 301-350 mg/dl: 9 units 351-400 mg/dl: 10 units > 400 mg/dl: 12 units Subjective Subjective: His FSGs were up and down. Objective Last 24 Hrs of Vital Signs/I&O Vital Signs Date Time Temp Pulse Resp B/P B/P Pulse O2 O2 Flow FiO2 Mean Ox Delivery Rate 10/10 0730 63 112/60 10/10 0730 63 112/60 10/10 0706 97.6 63 20 112/60 97 Room Air 10/09 2107 97.6 70 20 110/60 96 Room Air 10/09 1457 98.1 67 18 108/64 98 Intake & Output 10/10 1600 10/10 0800 10/10 0000 Intake Total 120 500 Output Total 625 950 Balance -505 -450 Intake, IV 100 Intake, Oral 120 400 Number 0 2 Bowel Movements Output, Urine 625 950 Patient 215 lb Weight Findings Pertinent Lab/Joel Results: Laboratory Tests 10/10 10/10 0632 0600 Chemistry Sodium (137 - 145 mmol/L) 140 Potassium (3.5 - 5.1 mmol/L) 5.5 H Chloride (98 - 107 mmol/L) 101 Carbon Dioxide (22 - 30 mmol/L) 28 Anion Gap (5 - 16) 12 BUN (9 - 20 mg/dL) 31 H Creatinine (0.7 - 1.2 mg/dL) 1.4 H Estimated GFR (>60 ml/min) 50 L BUN/Creatinine Ratio (7 - 25 %) 22.1 Hematology CBC w Diff MAN DIFF ORDERED WBC (4.8 - 10.8 /CUMM) 7.5 RBC (4.70 - 6.10 /CUMM) 3.44 L Hgb (14.0 - 18.0 G/DL) 9.6 L Hct (42 - 52 %) 29.3 L MCV (80.0 - 94.0 FL) 85.1 MCH (27.0 - 31.0 PG) 27.9 MCHC (33.0 - 37.0 G/DL) 32.8 L RDW (11.5 - 14.5 %) 14.4 Plt Count (130 - 400 /CUMM) 243 MPV (7.4 - 10.4 FL) 8.1 Gran % (42.2 - 75.2 %) 75.8 H Lymphocytes % (20.5 - 51.1 %) 15.7 L Monocytes % (1.7 - 9.3 %) 6.2 Eosinophils % (0 - 5 %) 1.5 Basophils % (0.0 - 2.0 %) 0.8 Absolute Granulocytes (1.4 - 6.5 /CUMM) 5.7 Segmented Neutrophils (42.2 - 75.2 %) 67 Band Neutrophils (0.0 - 5.0 %) 7 H Absolute Lymphocytes (1.2 - 3.4 /CUMM) 1.2 Lymphocytes (20.5 - 51.1 %) 16 L Monocytes (1.7 - 9.3 %) 5 Absolute Monocytes (0.10 - 0.60 /CUMM) 0.5 Eosinophils (0 - 5.0 %) 1 Absolute Eosinophils (0.0 - 0.7 /CUMM) 0.1 Basophils (0.0 - 2.0 %) 1 Absolute Basophils (0.0 - 0.2 /CUMM) 0.1 Metamyelocytes (0.0 - 1.0 %) 3 H Platelet Estimate (ADEQUATE) VERIFIED BY SMEAR Polychromasia 1+ Anisocytosis 1+ Toxicology Tacrolimus Pending
--- NOTE | 2017-10-10 13:17 | PN- Nephrology ---
Assessment/Plan Nephrology Assessment: 1. ESRD: s/p DD transplant; GFR stable 2. SHIRA: improved 3. Hyperkalemia: mild; watch 4. 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 continue current immunosuppressives 2. 2 gram K diet 3. check TAC level Subjective Subjective: No complaints Eating No SOB Wound vac R ft in place Objective Vital Signs and I&Os Vital Signs Date Time Temp Pulse Resp B/P B/P Pulse O2 O2 Flow FiO2 Mean Ox Delivery Rate 10/10 729 63 112/60 10/10 0630 63 112/60 10/10 705 97.6 63 20 112/60 97 Room Air 10/09 2107 97.6 70 20 110/60 96 Room Air 10/09 1457 98.1 67 18 108/64 98 Intake & Output 10/10 1600 10/10 0400 10/09 1600 10/09 0400 10/08 1600 10/08 0400 Intake Total 120 500 980 500 740 300 Output Total 884 487 8486 250 1525 975 Balance -505 -450 -120 250 -785 -675 Intake, IV 100 100 Intake, Oral 120 400 980 400 740 300 Number 0 2 1 Bowel Movements Output, Urine 477 117 2744 250 1525 975 Patient 215 lb 215 lb 214 lb Weight Weight Bed scale Measurement Method Physical Exam General Appearance: no apparent distress, alert, awake Head: atraumatic, normal appearance Ears, Nose, Throat: normal ENT inspection Neck: normal inspection, R IJ cath Respiratory: normal breath sounds, no respiratory distress, quiet respiration, lungs clear Cardiovascular: regular rate/rhythm Abdomen: soft, non-tender, no organomegaly Extremities: R wound vac Neurologic/Psychiatric: no motor/sensory deficits, 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, 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, 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 Skin: intact, normal color, warm/dry Lymphatic: no anterior cervical fortunato Current Medications: Current Medications Sig/Ira Start time Last Medication Dose Route Stop Time Status Admin Acetaminophen 650 MG Q6P PRN 09/22 1600 AC 10/09 PO 1013 Amiodarone HCl 100 MG DAILY 09/23 1000 AC 10/10 PO 0730 Apixaban 5 MG BID 10/06 1500 AC 10/10 PO 0730 Benzocaine/Menthol 1 CELIA Q2P PRN 09/30 0100 AC 09/30 PO 0118 Calcium/Vitamin D 500 MG DAILY 09/22 1929 AC 10/10 PO 0730 Daptomycin 500 MG Q24H 10/09 2100 AC 10/09 Sodium Chloride 50 ML IV 2300 Epoetin Onofre 20,000 U ONCE A WEEK 09/29 1030 AC 10/06 SC 1020 Escitalopram Oxalate 10 MG DAILY 09/23 1000 AC 10/10 PO 0730 Insulin Aspart 0 TIDAC/HS 10/06 1700 AC 10/10 SC 1137 Insulin Detemir 28 UNITS 8AM 10/11 0800 AC SC Insulin Detemir 24 UNITS 8AM 10/09 0800 DC 10/10 SC 0726 Lidocaine/Diphenhydr/ 5 ML Q4-6 PRN PRN 09/30 1530 AC 10/03 Alum/Mg/Simeth PO 2130 Metoprolol Succinate 12.5 MG DAILY 09/23 1000 AC 10/10 PO 0730 Mycophenolate Mofetil 1,000 MG TID 10/09 2200 CAN PO Mycophenolate Mofetil 500 MG TID 10/09 2200 AC 10/10 PO 0730 Mycophenolate Mofetil 1,000 MG BID 10/08 2200 DC 10/09 PO 2144 Omeprazole 20 MG DAILY AC 10/03 1334 AC 10/10 PO 0612 Tacrolimus 2 MG 10/10 06 AC 10/10 PO 0612 Tacrolimus 1.5 MG 10/10 0600 AC 10/10 PO 0613 Results Pertinent Lab Results: Laboratory Tests 10/10 10/10 0632 0600 Chemistry Sodium (137 - 145 mmol/L) 140 Potassium (3.5 - 5.1 mmol/L) 5.5 H Chloride (98 - 107 mmol/L) 101 Carbon Dioxide (22 - 30 mmol/L) 28 Anion Gap (5 - 16) 12 BUN (9 - 20 mg/dL) 31 H Creatinine (0.7 - 1.2 mg/dL) 1.4 H Estimated GFR (>60 ml/min) 50 L BUN/Creatinine Ratio (7 - 25 %) 22.1 Hematology CBC w Diff MAN DIFF ORDERED WBC (4.8 - 10.8 /CUMM) 7.5 RBC (4.70 - 6.10 /CUMM) 3.44 L Hgb (14.0 - 18.0 G/DL) 9.6 L Hct (42 - 52 %) 29.3 L MCV (80.0 - 94.0 FL) 85.1 MCH (27.0 - 31.0 PG) 27.9 MCHC (33.0 - 37.0 G/DL) 32.8 L RDW (11.5 - 14.5 %) 14.4 Plt Count (130 - 400 /CUMM) 243 MPV (7.4 - 10.4 FL) 8.1 Gran % (42.2 - 75.2 %) 75.8 H Lymphocytes % (20.5 - 51.1 %) 15.7 L Monocytes % (1.7 - 9.3 %) 6.2 Eosinophils % (0 - 5 %) 1.5 Basophils % (0.0 - 2.0 %) 0.8 Absolute Granulocytes (1.4 - 6.5 /CUMM) 5.7 Segmented Neutrophils (42.2 - 75.2 %) 67 Band Neutrophils (0.0 - 5.0 %) 7 H Absolute Lymphocytes (1.2 - 3.4 /CUMM) 1.2 Lymphocytes (20.5 - 51.1 %) 16 L Monocytes (1.7 - 9.3 %) 5 Absolute Monocytes (0.10 - 0.60 /CUMM) 0.5 Eosinophils (0 - 5.0 %) 1 Absolute Eosinophils (0.0 - 0.7 /CUMM) 0.1 Basophils (0.0 - 2.0 %) 1 Absolute Basophils (0.0 - 0.2 /CUMM) 0.1 Metamyelocytes (0.0 - 1.0 %) 3 H Platelet Estimate (ADEQUATE) VERIFIED BY SMEAR Polychromasia 1+ Anisocytosis 1+ Toxicology Tacrolimus Pending 10/09 10/08 0615 0600 Chemistry Sodium (137 - 145 mmol/L) 140 Potassium (3.5 - 5.1 mmol/L) 5.9 H Chloride (98 - 107 mmol/L) 101 Carbon Dioxide (22 - 30 mmol/L) 28 Anion Gap (5 - 16) 10 BUN (9 - 20 mg/dL) 27 H Creatinine (0.7 - 1.2 mg/dL) 1.5 H Estimated GFR (>60 ml/min) 46 L BUN/Creatinine Ratio (7 - 25 %) 18.0 Magnesium (1.6 - 2.3 mg/dL) 1.9 Hematology CBC w Diff MAN DIFF ORDERED WBC (4.8 - 10.8 /CUMM) 8.3 RBC (4.70 - 6.10 /CUMM) 3.40 L Hgb (14.0 - 18.0 G/DL) 9.5 L Hct (42 - 52 %) 29.2 L MCV (80.0 - 94.0 FL) 86.1 MCH (27.0 - 31.0 PG) 27.9 MCHC (33.0 - 37.0 G/DL) 32.4 L RDW (11.5 - 14.5 %) 14.6 H Plt Count (130 - 400 /CUMM) 248 MPV (7.4 - 10.4 FL) 8.1 Gran % (42.2 - 75.2 %) 78.0 H Lymphocytes % (20.5 - 51.1 %) 12.9 L Monocytes % (1.7 - 9.3 %) 7.1 Eosinophils % (0 - 5 %) 1.5 Basophils % (0.0 - 2.0 %) 0.5 Absolute Granulocytes (1.4 - 6.5 /CUMM) 6.5 Segmented Neutrophils (42.2 - 75.2 %) 70 Band Neutrophils (0.0 - 5.0 %) 10 H Absolute Lymphocytes (1.2 - 3.4 /CUMM) 1.1 L Lymphocytes (20.5 - 51.1 %) 10 L Monocytes (1.7 - 9.3 %) 5 Absolute Monocytes (0.10 - 0.60 /CUMM) 0.6 Eosinophils (0 - 5.0 %) 2 Absolute Eosinophils (0.0 - 0.7 /CUMM) 0.1 Absolute Basophils (0.0 - 0.2 /CUMM) 0 Metamyelocytes (0.0 - 1.0 %) 3 H Nucleated RBCs (0.0 - 0.0 /100WBC) 1 H Normocytic RBCs VERIFIED Normochromic RBCs VERIFIED Toxicology Tacrolimus (() mcg/L) Cancelled 4.4 L 10/08 0530 Chemistry Sodium (137 - 145 mmol/L) 138 Potassium (3.5 - 5.1 mmol/L) 5.9 H Chloride (98 - 107 mmol/L) 100 Carbon Dioxide (22 - 30 mmol/L) 30 Anion Gap (5 - 16) 9 BUN (9 - 20 mg/dL) 25 H Creatinine (0.7 - 1.2 mg/dL) 1.4 H Estimated GFR (>60 ml/min) 50 L BUN/Creatinine Ratio (7 - 25 %) 17.9 Magnesium (1.6 - 2.3 mg/dL) 2.0 Hematology CBC w Diff MAN DIFF ORDERED WBC (4.8 - 10.8 /CUMM) 7.3 RBC (4.70 - 6.10 /CUMM) 3.43 L Hgb (14.0 - 18.0 G/DL) 9.3 L Hct (42 - 52 %) 29.2 L MCV (80.0 - 94.0 FL) 85.1 MCH (27.0 - 31.0 PG) 26.9 L MCHC (33.0 - 37.0 G/DL) 31.6 L RDW (11.5 - 14.5 %) 14.3 Plt Count (130 - 400 /CUMM) 246 MPV (7.4 - 10.4 FL) 7.8 Gran % (42.2 - 75.2 %) 78.4 H Lymphocytes % (20.5 - 51.1 %) 12.2 L Monocytes % (1.7 - 9.3 %) 7.2 Eosinophils % (0 - 5 %) 1.5 Basophils % (0.0 - 2.0 %) 0.7 Absolute Granulocytes (1.4 - 6.5 /CUMM) 5.7 Segmented Neutrophils (42.2 - 75.2 %) 62 Band Neutrophils (0.0 - 5.0 %) 10 H Absolute Lymphocytes (1.2 - 3.4 /CUMM) 0.9 L Lymphocytes (20.5 - 51.1 %) 21 Monocytes (1.7 - 9.3 %) 4 Absolute Monocytes (0.10 - 0.60 /CUMM) 0.5 Eosinophils (0 - 5.0 %) 2 Absolute Eosinophils (0.0 - 0.7 /CUMM) 0.1 Absolute Basophils (0.0 - 0.2 /CUMM) 0 Metamyelocytes (0.0 - 1.0 %) 1 Nucleated RBCs (0.0 - 0.0 /100WBC) 1 H Platelet Estimate (ADEQUATE) ADEQUATE Polychromasia 1+ Hypochromic-Microcytic 1+ Anisocytosis 1+ Macrocytic Cells 1+ Toxicology Tacrolimus (() mcg/L) 4.6 L
--- NOTE | 2017-10-10 14:04 | PN- Pulmonary ---
Subjective HPI/Critical Care Issues: No complaints Eating No SOB Wound vac R ft in place Objective Current Medications: Current Medications Sig/Ira Start time Last Medication Dose Route Stop Time Status Admin Acetaminophen 650 MG Q6P PRN 09/22 1600 AC 10/09 PO 1013 Amiodarone HCl 100 MG DAILY 09/23 1000 AC 10/10 PO 0730 Apixaban 5 MG BID 10/06 1500 AC 10/10 PO 0730 Benzocaine/Menthol 1 CELIA Q2P PRN 09/30 0100 AC 09/30 PO 0118 Calcium/Vitamin D 500 MG DAILY 09/22 1929 AC 10/10 PO 0730 Daptomycin 500 MG Q24H 10/09 2100 AC 10/09 Sodium Chloride 50 ML IV 2300 Epoetin Onofre 20,000 U ONCE A WEEK 09/29 1030 AC 10/06 MA 1020 Escitalopram Oxalate 10 MG DAILY 09/23 1000 AC 10/10 PO 0730 Insulin Aspart 0 TIDAC/HS 10/06 1700 AC 10/10 MA 1137 Insulin Detemir 28 UNITS 8AM 10/11 0800 AC SC Insulin Detemir 24 UNITS 8AM 10/09 0800 DC 10/10 SC 0726 Lidocaine/Diphenhydr/ 5 ML Q4-6 PRN PRN 09/30 1530 AC 10/03 Alum/Mg/Simeth PO 2130 Metoprolol Succinate 12.5 MG DAILY 09/23 1000 AC 10/10 PO 0730 Mycophenolate Mofetil 1,000 MG TID 10/09 2200 CAN PO Mycophenolate Mofetil 500 MG TID 10/09 2200 AC 10/10 PO 0730 Mycophenolate Mofetil 1,000 MG BID 10/08 2200 DC 10/09 PO 2144 Omeprazole 20 MG DAILY AC 10/03 1334 AC 10/10 PO 0612 Tacrolimus 2 MG 10/10 06 AC 10/10 PO 0612 Tacrolimus 1.5 MG 10/10 06 AC 10/10 PO 0613 Vital Signs & I&O Last 24 Hrs of Vitals and I&O: Vital Signs Date Time Temp Pulse Resp B/P B/P Pulse O2 O2 Flow FiO2 Mean Ox Delivery Rate 10/10 729 63 112/60 10/10 729 63 112/60 10/10 705 97.6 63 20 112/60 97 Room Air 04/08 2107 97.6 70 20 110/60 96 Room Air 10/09 1457 98.1 67 18 108/64 98 Intake & Output 10/10 1600 10/10 0800 10/10 0000 Intake Total 120 500 Output Total 625 950 Balance -505 -450 Intake, IV 100 Intake, Oral 120 400 Number 0 2 Bowel Movements Output, Urine 625 950 Patient 215 lb Weight Laboratory Tests 10/10 10/10 0632 0600 Chemistry Sodium (137 - 145 mmol/L) 140 Potassium (3.5 - 5.1 mmol/L) 5.5 H Chloride (98 - 107 mmol/L) 101 Carbon Dioxide (22 - 30 mmol/L) 28 Anion Gap (5 - 16) 12 BUN (9 - 20 mg/dL) 31 H Creatinine (0.7 - 1.2 mg/dL) 1.4 H Estimated GFR (>60 ml/min) 50 L BUN/Creatinine Ratio (7 - 25 %) 22.1 Hematology CBC w Diff MAN DIFF ORDERED WBC (4.8 - 10.8 /CUMM) 7.5 RBC (4.70 - 6.10 /CUMM) 3.44 L Hgb (14.0 - 18.0 G/DL) 9.6 L Hct (42 - 52 %) 29.3 L MCV (80.0 - 94.0 FL) 85.1 MCH (27.0 - 31.0 PG) 27.9 MCHC (33.0 - 37.0 G/DL) 32.8 L RDW (11.5 - 14.5 %) 14.4 Plt Count (130 - 400 /CUMM) 243 MPV (7.4 - 10.4 FL) 8.1 Gran % (42.2 - 75.2 %) 75.8 H Lymphocytes % (20.5 - 51.1 %) 15.7 L Monocytes % (1.7 - 9.3 %) 6.2 Eosinophils % (0 - 5 %) 1.5 Basophils % (0.0 - 2.0 %) 0.8 Absolute Granulocytes (1.4 - 6.5 /CUMM) 5.7 Segmented Neutrophils (42.2 - 75.2 %) 67 Band Neutrophils (0.0 - 5.0 %) 7 H Absolute Lymphocytes (1.2 - 3.4 /CUMM) 1.2 Lymphocytes (20.5 - 51.1 %) 16 L Monocytes (1.7 - 9.3 %) 5 Absolute Monocytes (0.10 - 0.60 /CUMM) 0.5 Eosinophils (0 - 5.0 %) 1 Absolute Eosinophils (0.0 - 0.7 /CUMM) 0.1 Basophils (0.0 - 2.0 %) 1 Absolute Basophils (0.0 - 0.2 /CUMM) 0.1 Metamyelocytes (0.0 - 1.0 %) 3 H Platelet Estimate (ADEQUATE) VERIFIED BY SMEAR Polychromasia 1+ Anisocytosis 1+ Toxicology Tacrolimus Pending 10/09 614 Chemistry Sodium (137 - 145 mmol/L) 140 Potassium (3.5 - 5.1 mmol/L) 5.9 H Chloride (98 - 107 mmol/L) 101 Carbon Dioxide (22 - 30 mmol/L) 28 Anion Gap (5 - 16) 10 BUN (9 - 20 mg/dL) 27 H Creatinine (0.7 - 1.2 mg/dL) 1.5 H Estimated GFR (>60 ml/min) 46 L BUN/Creatinine Ratio (7 - 25 %) 18.0 Magnesium (1.6 - 2.3 mg/dL) 1.9 Hematology CBC w Diff MAN DIFF ORDERED WBC (4.8 - 10.8 /CUMM) 8.3 RBC (4.70 - 6.10 /CUMM) 3.40 L Hgb (14.0 - 18.0 G/DL) 9.5 L Hct (42 - 52 %) 29.2 L MCV (80.0 - 94.0 FL) 86.1 MCH (27.0 - 31.0 PG) 27.9 MCHC (33.0 - 37.0 G/DL) 32.4 L RDW (11.5 - 14.5 %) 14.6 H Plt Count (130 - 400 /CUMM) 248 MPV (7.4 - 10.4 FL) 8.1 Gran % (42.2 - 75.2 %) 78.0 H Lymphocytes % (20.5 - 51.1 %) 12.9 L Monocytes % (1.7 - 9.3 %) 7.1 Eosinophils % (0 - 5 %) 1.5 Basophils % (0.0 - 2.0 %) 0.5 Absolute Granulocytes (1.4 - 6.5 /CUMM) 6.5 Segmented Neutrophils (42.2 - 75.2 %) 70 Band Neutrophils (0.0 - 5.0 %) 10 H Absolute Lymphocytes (1.2 - 3.4 /CUMM) 1.1 L Lymphocytes (20.5 - 51.1 %) 10 L Monocytes (1.7 - 9.3 %) 5 Absolute Monocytes (0.10 - 0.60 /CUMM) 0.6 Eosinophils (0 - 5.0 %) 2 Absolute Eosinophils (0.0 - 0.7 /CUMM) 0.1 Absolute Basophils (0.0 - 0.2 /CUMM) 0 Metamyelocytes (0.0 - 1.0 %) 3 H Nucleated RBCs (0.0 - 0.0 /100WBC) 1 H Normocytic RBCs VERIFIED Normochromic RBCs VERIFIED Toxicology Tacrolimus Cancelled Impression/Plan Impression/Plan Impression/Plan: Head: atraumatic, normal appearance Eyes:Bilateral: normal appearance, PERRL, EOMI. Ears, Nose, Throat: normal pharynx, normal ENT inspection, hearing grossly normal Neck: normal inspection, supple, full range of motion, no midline tenderness Respiratory: normal breath sounds, chest non-tender, no respiratory distress, quiet respiration, lungs clear Cardiovascular: normal peripheral pulses, irregularly irregular, norml femoral pulses equa Peripheral Pulses: 4+ carotid (R), 4+ carotid (L) Gastrointestinal: normal bowel sounds, soft, non-tender, no organomegaly Back: normal inspection, normal range of motion, no vertebral tenderness Extremities: no edema, pelvis stable,s/p debridement and in dressing with wound vac in place Neurologic/Psych: normal Reflexes:2+: bicep (R), bicep (L). Lymphatic: no anterior cervical adenavf intact IMPRESSION This is a gentleman with s/p renal transplant with infected toe with osteo s/p surg * ON rx for - Infected foot with fever on admission MRSA sepsis- in a pt who is immunosupp (recent toe amputation with osteo, s/p complete debridement of osteo with toe amputation and wound closure on 09/09/17) now - MRSA infection and resolving sepsis. s/p angioplasty of peroneal artery and wound redebridement of the foot. 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 No sig endocarditis noted in junior. Poor wound healing and ongoing eval for further plan if he does not heal may need bka * Transient neutopenia and anemia - was on neupogen / cmv viral load neg, now his mycophenolate has been reduce to 500 bid and pt back on his original tacrolimus dose (3.5 total)- levels a little low no * Resolved odynophagia with endoscopy essentially unremarkable except for atrophic gastritis annd prob gastropersis * Resolving Diarrhea has improved * REsolved delirium without Sig neuro deficit * MRI showing very small punctate lesions prob ateromatous small emboli, on anticoag, and statin * PT with Pafib in Sinus and sig atheromatous aorta, small pfo, - on eloquis * Prolonged qtc, previous low mag need to continue to monitor * REsolving SHIRA with CKD s/p renal transplant, creat now 1.4 (recent contrast use) * DM insulin requiring endo onboard * PVD, previous history of stoke, and previous toe amputation, now angioplasty * Previous secondary hyperparathyroid. Sig autonomic dysfunction was on fludocortisone * Pafib on eliquis (in sinus on amiodarone) (being dosed for renal function) now held on heparin * Depression and anxiety * Peripheral neuropathy * Resolved Mild ekg changes with slight elevated troponin stable REC * COnt abx / ID to decide on duration of abx etc * Cont current dose of tacrolimus, check levels again daily (dose increased few days ago) * mycophenolate 500 500 tid for now (Discussed with Dr. Gauthier his transplant nephro before) * Tylenol for pain and if his pain is severe can use tramadol prn (pt did get confused before) * IF pain in his hands are still worse in a day or two then can start plaquanil 200 mg qd * cont anticoag * WOund vac, vacular note reviewed, per podiatry no sig improvement and pt would probably need aka * Please ask vascular to see in am for reeval * Daily tacrolimus level and will adjust dose subsequently * ID and Podiatry, vascular, Cardio,Endo, GI and renal following * EKG monitoring per cardio * Cont metoprolol, statin, amio, antidepressant lexapro * Keep sugars less than 150 * Once ambulatory start his home dose of fludrocortizone
--- NOTE | 2017-10-10 14:42 | PN- Infect Dx ---
Subjective Subjective: Afebrile. He continues to complain of occasional discomfort in the right foot. He has no further odynophagia or diarrhea. Objective Last 24 Hrs of Vital Signs/I&O Vital Signs Date Time Temp Pulse Resp B/P B/P Pulse O2 O2 Flow FiO2 Mean Ox Delivery Rate 10/10 0630 63 112/60 10/10 0730 63 112/60 10/10 0706 97.6 63 20 112/60 97 Room Air 10/09 2107 97.6 70 20 110/60 96 Room Air 10/09 1457 98.1 67 18 108/64 98 Intake & Output 10/10 1600 10/10 0800 10/10 0000 Intake Total 600 120 500 Output Total 700 625 950 Balance -100 -505 -450 Intake, IV 100 Intake, Oral 600 120 400 Number 1 0 2 Bowel Movements Output, Urine 700 625 950 Patient 215 lb Weight Physical Exam Other Physical Findings: He appears comfortable in no acute distress Chest Pro-Line in the right upper chest with no inflammation at the site Extremities right foot dressing intact Results Last 24 Hours of Lab Results: Laboratory Tests 10/10 10/10 0632 0600 Chemistry Sodium (137 - 145 mmol/L) 140 Potassium (3.5 - 5.1 mmol/L) 5.5 H Chloride (98 - 107 mmol/L) 101 Carbon Dioxide (22 - 30 mmol/L) 28 Anion Gap (5 - 16) 12 BUN (9 - 20 mg/dL) 31 H Creatinine (0.7 - 1.2 mg/dL) 1.4 H Estimated GFR (>60 ml/min) 50 L BUN/Creatinine Ratio (7 - 25 %) 22.1 Hematology CBC w Diff MAN DIFF ORDERED WBC (4.8 - 10.8 /CUMM) 7.5 RBC (4.70 - 6.10 /CUMM) 3.44 L Hgb (14.0 - 18.0 G/DL) 9.6 L Hct (42 - 52 %) 29.3 L MCV (80.0 - 94.0 FL) 85.1 MCH (27.0 - 31.0 PG) 27.9 MCHC (33.0 - 37.0 G/DL) 32.8 L RDW (11.5 - 14.5 %) 14.4 Plt Count (130 - 400 /CUMM) 243 MPV (7.4 - 10.4 FL) 8.1 Gran % (42.2 - 75.2 %) 75.8 H Lymphocytes % (20.5 - 51.1 %) 15.7 L Monocytes % (1.7 - 9.3 %) 6.2 Eosinophils % (0 - 5 %) 1.5 Basophils % (0.0 - 2.0 %) 0.8 Absolute Granulocytes (1.4 - 6.5 /CUMM) 5.7 Segmented Neutrophils (42.2 - 75.2 %) 67 Band Neutrophils (0.0 - 5.0 %) 7 H Absolute Lymphocytes (1.2 - 3.4 /CUMM) 1.2 Lymphocytes (20.5 - 51.1 %) 16 L Monocytes (1.7 - 9.3 %) 5 Absolute Monocytes (0.10 - 0.60 /CUMM) 0.5 Eosinophils (0 - 5.0 %) 1 Absolute Eosinophils (0.0 - 0.7 /CUMM) 0.1 Basophils (0.0 - 2.0 %) 1 Absolute Basophils (0.0 - 0.2 /CUMM) 0.1 Metamyelocytes (0.0 - 1.0 %) 3 H Platelet Estimate (ADEQUATE) VERIFIED BY SMEAR Polychromasia 1+ Anisocytosis 1+ Toxicology Tacrolimus Pending Last 24 Hours of Joel Results: No new cultures Assessment/Plan ID Impression: Stable, with temperatures and white blood cell count remaining normal on Daptomycin, Day 18 of treatment for MRSA sepsis/osteomyelitis of the right foot status post revisional partial first ray resection, placement of a wound VAC and right peroneal artery angioplasty 13 days ago. Have again discussed with Podiatry who remains concerned about the viability of his right foot and does not feel that his antibiotic treatment should be extended beyond the minimum requirement. Suggestion: 1. Will again discuss with Vascular surgery 2. Continue Daptomycin to plan on a 4 week course (until October 20) 3. Continue weekly CPK while on Daptomycin
[2017-10-10 14:55] VITALS: BP 148/80
[2017-10-10 22:39] VITALS: BP 138/76
--- NOTE | 2017-10-11 06:31 | PN- Housestaff ---
Subjective Follow-up For: Osteomyelitis MRSA bacteremia New LBBB A CAD with history of renal transplant Neutropenia Altered mental status Tele-Events Since Last Visit: NSR HR 50s-60s Subjective: Patient was seen and examined at bedside. He is resting comfortably. He had no acute events overnight. He expressed extreme frustration with his glucose control. He states that while at home he was able to keep tight glucose control and wishes the control to currently be titer, he states that he has expressed this frustration with numerous doctors and feels that he would be better served if he was able to dose his insulin on his own. A lengthy discussion was had about the measures being taken to control his blood sugars. He is also complaining of twinges of pain of his right foot and as bad as a 6 or 7/10. He offers no other complaints at this time, his stools have become less loose. Review of Systems Constitutional: Denies: chills, fever. EENTM: Reports: no symptoms. Cardiovascular: Reports: no symptoms. Respiratory: Reports: no symptoms. Gastrointestinal: Reports: no symptoms. Genitourinary: Reports: no symptoms. Musculoskeletal: Reports: no symptoms. Skin: Reports: no symptoms. Objective Last 24 Hrs of Vital Signs/I&O Vital Signs Date Time Temp Pulse Resp B/P B/P Pulse O2 O2 Flow FiO2 Mean Ox Delivery Rate 10/11 0656 98.6 63 22 130/84 94 10/10 2239 98.4 65 17 138/76 97 10/10 1455 97.8 60 18 148/80 95 Room Air Intake & Output 10/11 1600 10/11 0800 10/11 0000 Intake Total 120 210 Output Total 1000 550 Balance -1000 120 -340 Intake, IV 90 Intake, Oral 120 120 Output, Urine 1000 550 Patient 213 lb Weight Physical Exam General Appearance: Alert, Oriented X3, Cooperative, No Acute Distress Cardiovascular: Regular Rate, Normal S1, Normal S2 Lungs: Clear to Auscultation, Normal Air Movement Abdomen: Normal Bowel Sounds, Soft, No Tenderness Neurological: Normal Speech, Normal Tone, diminshed sensation of the feet bilaterally, patient states this is baseline Extremities: R foot dressed in kerlex, woundvac in place Current Medications: Current Medications Sig/Ira Start time Last Medication Dose Route Stop Time Status Admin Acetaminophen 650 MG .STK-MED ONE 10/10 2138 DC PO 04/09 2140 Acetaminophen 650 MG Q6P PRN 09/22 1600 AC 10/10 PO 2141 Amiodarone HCl 100 MG DAILY 09/23 1000 AC 10/10 PO 0730 Apixaban 5 MG BID 10/06 1500 AC 10/10 PO 2121 Benzocaine/Menthol 1 CELIA Q2P PRN 09/30 0100 AC 09/30 PO 0118 Calcium/Vitamin D 500 MG DAILY 09/22 1929 AC 10/10 PO 0730 Daptomycin 500 MG Q24H 10/09 2100 AC 10/10 Sodium Chloride 50 ML IV 2121 Epoetin Onofre 20,000 U ONCE A WEEK 09/29 1030 AC 10/06 SC 1020 Escitalopram Oxalate 10 MG DAILY 09/23 1000 AC 10/10 PO 0730 Insulin Aspart 0 TIDAC/HS 10/06 1700 AC 10/11 SC 0809 Insulin Detemir 30 UNITS 8AM 10/12 0800 DC SC Insulin Detemir 30 UNITS 8AM 10/11 0830 AC 10/11 SC 0834 Insulin Detemir 28 UNITS 8AM 10/11 0800 DC SC Lidocaine/Diphenhydr/ 5 ML Q4-6 PRN PRN 09/30 1530 AC 10/03 Alum/Mg/Simeth PO 2130 Metoprolol Succinate 12.5 MG DAILY 09/23 1000 AC 10/10 PO 0730 Mycophenolate Mofetil 500 MG TID 10/09 2200 AC 10/10 PO 2121 Omeprazole 20 MG DAILY AC 10/03 1334 AC 10/11 PO 0625 Tacrolimus 2 MG 0600 10/10 0600 AC 10/11 PO 0625 Tacrolimus 1.5 MG 10/10 0600 AC 10/11 PO 0625 Last 24 Hrs of Lab/Joel Results Last 24 Hrs of Labs/Mics: Laboratory Tests 10/11/17 0630: Anion Gap 10, Estimated GFR 46 L, BUN/Creatinine Ratio 26.0 H, Glucose 210 H, Magnesium 2.1, CBC w Diff NO MAN DIFF REQ, RBC 3.38 L, MCV 85.9, MCH 27.9, MCHC 32.5 L, RDW 15.1 H, MPV 8.1, Gran % 68.4, Lymphocytes % 20.4 L, Monocytes % 8.5, Eosinophils % 1.6, Basophils % 1.1, Absolute Granulocytes 3.9, Absolute Lymphocytes 1.2, Absolute Monocytes 0.5, Absolute Eosinophils 0.1, Absolute Basophils 0.1 Assessment/Plan Assessment: Patient is a 71-year-old male with an extensive past medical history significant for ESRD status post renal transplant on tacrolimus and CellCept, paroxysmal A. fib on Eliquis, HTN, HLD, CVA, DM admission to [place] for osteomyelitis, status post amputation of right and left third great toe who presented with complaints of malaise, nausea, vomiting, diarrhea, poor appetite with recurrent osteomyelitis of his right foot. #MRSA bacteremia secondary to right foot osteomyelitis Leukocytosis is resolved, blood and surgical cultures positive for MRSA, arterial Doppler noted for decreased flow. Echo showing no vegetation with small PFO. MRI head showing multiple punctate foci with embolic versus septic origin -Continue daptomycin to complete a four-week course, and date 10/20 -Weekly CPK on daptomycin -ID recommendations appreciated #SHIRA -Continue to monitor and follow-up nephrology recommendations, recommendations appreciated #DM Poorly controlled with elevated blood sugars above 200s -Continue to follow endocrine recommendations, recommendations appreciated #Chronic medical problems -Continue current medication regimen Diet: Diabetic diet, with potassium restriction DVT prophylaxis: Apixaban CODE STATUS: Full code Problem List: 1. SHIRA (acute kidney injury) 2. Osteomyelitis of foot, right, acute Pain Ratin Pain Location: R foot Pain Goal: Pain 4 or less Pain Plan: pain pathway Tomorrow's Labs & Rationales: cbc, bep
[2017-10-11 06:56] VITALS: BP 130/84
[2017-10-11 08:01] LABS: ABSOLUTE BASOPHIL COUNT 0.1 /CUMM (0.0-0.2); ABSOLUTE EOSINOPHIL COUNT 0.1 /CUMM (0.0-0.7); ABSOLUTE GRANULOCYTE CT 3.9 /CUMM (1.4-6.5); ABSOLUTE LYMPH COUNT 1.2 /CUMM (1.2-3.4); ABSOLUTE MONOCYTE COUNT 0.5 /CUMM (0.10-0.60); BASOPHIL % 1.1 % (0.0-2.0); EOSINOPHIL % 1.6 % (0-5); GRANULOCYTE % 68.4 % (42.2-75.2); HEMATOCRIT 29.1 % (42-52); MEAN CORPUSCULAR HGB 27.9 PG (27.0-31.0); MEAN CORPUSCULAR HGB CONC 32.5 G/DL (33.0-37.0); MEAN CORPUSCULAR VOLUME 85.9 FL (80.0-94.0); MEAN PLATELET VOLUME 8.1 FL (7.4-10.4); PLATELET COUNT 242 /CUMM (130-400); RBC DISTRIBUTION WIDTH 15.1 % (11.5-14.5); RED BLOOD CELL CT 3.38 /CUMM (4.70-6.10); WHITE BLOOD CELL COUNT 5.7 /CUMM (4.8-10.8)
--- NOTE | 2017-10-11 10:52 | PN- Infect Dx ---
Subjective Subjective: Afebrile. He continues to complain of a twinging pain in his right foot but otherwise feels well with no further odynophagia or diarrhea. Objective Last 24 Hrs of Vital Signs/I&O Vital Signs Date Time Temp Pulse Resp B/P B/P Pulse O2 O2 Flow FiO2 Mean Ox Delivery Rate 10/11 1032 98.6 63 22 130/84 10/11 1031 98.6 63 22 130/84 10/11 0656 98.6 63 22 130/84 94 10/10 2239 98.4 65 17 138/76 97 10/10 1455 97.8 60 18 148/80 95 Room Air Intake & Output 10/11 1600 10/11 0800 10/11 0000 Intake Total 120 210 Output Total 1000 550 Balance -1000 120 -340 Intake, IV 90 Intake, Oral 120 120 Output, Urine 1000 550 Patient 213 lb Weight Physical Exam Other Physical Findings: He appears comfortable in no acute distress Chest Pro-Line in the right upper chest with no inflammation at the site Extremities right foot dressing intact, with wound VAC in place Results Last 24 Hours of Lab Results: Laboratory Tests 10/11 0630 Chemistry Sodium (137 - 145 mmol/L) 140 Potassium (3.5 - 5.1 mmol/L) 5.4 H Chloride (98 - 107 mmol/L) 103 Carbon Dioxide (22 - 30 mmol/L) 27 Anion Gap (5 - 16) 10 BUN (9 - 20 mg/dL) 39 H Creatinine (0.7 - 1.2 mg/dL) 1.5 H Estimated GFR (>60 ml/min) 46 L BUN/Creatinine Ratio (7 - 25 %) 26.0 H Glucose (65 - 99 mg/dL) 210 H Magnesium (1.6 - 2.3 mg/dL) 2.1 Hematology CBC w Diff NO MAN DIFF REQ WBC (4.8 - 10.8 /CUMM) 5.7 RBC (4.70 - 6.10 /CUMM) 3.38 L Hgb (14.0 - 18.0 G/DL) 9.5 L Hct (42 - 52 %) 29.1 L MCV (80.0 - 94.0 FL) 85.9 MCH (27.0 - 31.0 PG) 27.9 MCHC (33.0 - 37.0 G/DL) 32.5 L RDW (11.5 - 14.5 %) 15.1 H Plt Count (130 - 400 /CUMM) 242 MPV (7.4 - 10.4 FL) 8.1 Gran % (42.2 - 75.2 %) 68.4 Lymphocytes % (20.5 - 51.1 %) 20.4 L Monocytes % (1.7 - 9.3 %) 8.5 Eosinophils % (0 - 5 %) 1.6 Basophils % (0.0 - 2.0 %) 1.1 Absolute Granulocytes (1.4 - 6.5 /CUMM) 3.9 Absolute Lymphocytes (1.2 - 3.4 /CUMM) 1.2 Absolute Monocytes (0.10 - 0.60 /CUMM) 0.5 Absolute Eosinophils (0.0 - 0.7 /CUMM) 0.1 Absolute Basophils (0.0 - 0.2 /CUMM) 0.1 Last 24 Hours of Joel Results: No new cultures Assessment/Plan ID Impression: Stable, with temperatures and white blood cell count remaining normal on Daptomycin, Day 19 of treatment for MRSA sepsis/osteomyelitis of the right foot status post revisional partial first ray resection, placement of a wound VAC and right peroneal artery angioplasty 2 weeks ago. Of note he was on Vancomycin initially but this was discontinued because of leukopenia and worsening renal function which was felt to be possibly secondary to the Vancomycin. Have discussed with Podiatry who remains concerned about the viability of his right foot and does not feel that his antibiotic treatment should be extended beyond the minimum requirement. Have also discussed with Vascular surgery, who has no plans for any further intervention at this time. Suggestion: 1. Repeat ESR and follow weekly 2. Repeat CPK in the a.m. and follow weekly 3. Continue Daptomycin to complete a 4 week course of antibiotics from his most recent debridement (until October 25)
--- NOTE | 2017-10-11 10:54 | PN- Nephrology ---
Assessment/Plan Nephrology Assessment: 1. ESRD: s/p DD transplant; GFR stable 2. SHIRA: improved 3. Hyperkalemia: mild & stable; watch 4. 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 endocarditis --> TESS neg veg; continue antibiotics per ID Suggestion: Continue current immunosuppressives Subjective Subjective: No new complaints Continues on IV antibiotics & R ft wound vac Objective Vital Signs and I&Os Vital Signs Date Time Temp Pulse Resp B/P B/P Pulse O2 O2 Flow FiO2 Mean Ox Delivery Rate 10/11 1032 98.6 63 22 130/84 10/11 1031 98.6 63 22 130/84 10/11 0656 98.6 63 22 130/84 94 10/10 2239 98.4 65 17 138/76 97 10/10 1455 97.8 60 18 148/80 95 Room Air Intake & Output 10/11 1600 10/11 0400 10/10 1600 10/10 0400 10/09 1600 10/09 0400 Intake Total 120 210 720 500 980 500 Output Total 7026 833 7291 950 1100 250 Balance -880 -340 -605 -450 -120 250 Intake, IV 90 100 100 Intake, Oral 120 120 720 400 980 400 Number 1 2 1 Bowel Movements Output, Urine 7434 853 4021 950 1100 250 Patient 213 lb 215 lb 215 lb Weight Weight Bed scale Measurement Method Physical Exam General Appearance: well developed/nourished, no apparent distress, alert Head: atraumatic, normal appearance Neck: R IJ cath Respiratory: normal breath sounds, quiet respiration, lungs clear Cardiovascular: regular rate/rhythm Abdomen: soft, non-tender, no organomegaly Back: normal inspection Extremities: + bruit L arm AVF: wound vac R ft Neurologic/Psychiatric: no motor/sensory deficits, awake, alert, fur finisher II-XII nml as tested Skin: normal color, warm/dry Current Medications: Current Medications Sig/Ira Start time Last Medication Dose Route Stop Time Status Admin Acetaminophen 650 MG .STK-MED ONE 10/10 2138 DC PO 10/11 2139 Acetaminophen 650 MG Q6P PRN 09/22 1600 AC 10/10 PO 214 Amiodarone HCl 100 MG DAILY 09/23 1000 AC 10/11 PO 103 Apixaban 5 MG BID 10/06 1500 AC 10/11 PO 1031 Benzocaine/Menthol 1 CELIA Q2P PRN 09/30 0100 AC 09/30 PO 0118 Calcium/Vitamin D 500 MG DAILY 09/22 1929 AC 10/11 PO 1031 Daptomycin 500 MG Q24H 10/09 2100 AC 10/10 Sodium Chloride 50 ML IV 2121 Epoetin Onofre 20,000 U ONCE A WEEK 09/29 1030 AC 10/06 SC 1020 Escitalopram Oxalate 10 MG DAILY 09/23 1000 AC 10/11 PO 1031 Insulin Aspart 0 TIDAC/HS 10/06 1700 AC 10/11 SC 0809 Insulin Detemir 30 UNITS 8AM 10/12 0800 DC SC Insulin Detemir 30 UNITS 8AM 10/11 0830 AC 10/11 SC 0834 Insulin Detemir 28 UNITS 8AM 10/11 0800 DC SC Lidocaine/Diphenhydr/ 5 ML Q4-6 PRN PRN 09/30 1530 AC 10/03 Alum/Mg/Simeth PO 2130 Metoprolol Succinate 12.5 MG DAILY 09/23 1000 AC 10/11 PO 1032 Mycophenolate Mofetil 500 MG TID 10/09 2200 AC 10/11 PO 1031 Omeprazole 20 MG DAILY AC 10/03 1334 AC 10/11 PO 0625 Tacrolimus 2 MG 10/10 0600 AC 10/11 PO 0625 Tacrolimus 1.5 MG 00 10/10 0600 AC 10/11 PO 0625 Results Pertinent Lab Results: Laboratory Tests 10/11 10/10 0630 0632 Chemistry Sodium (137 - 145 mmol/L) 140 140 Potassium (3.5 - 5.1 mmol/L) 5.4 H 5.5 H Chloride (98 - 107 mmol/L) 103 101 Carbon Dioxide (22 - 30 mmol/L) 27 28 Anion Gap (5 - 16) 10 12 BUN (9 - 20 mg/dL) 39 H 31 H Creatinine (0.7 - 1.2 mg/dL) 1.5 H 1.4 H Estimated GFR (>60 ml/min) 46 L 50 L BUN/Creatinine Ratio (7 - 25 %) 26.0 H 22.1 Glucose (65 - 99 mg/dL) 210 H Magnesium (1.6 - 2.3 mg/dL) 2.1 Hematology CBC w Diff NO MAN DIFF REQ MAN DIFF ORDERED WBC (4.8 - 10.8 /CUMM) 5.7 7.5 RBC (4.70 - 6.10 /CUMM) 3.38 L 3.44 L Hgb (14.0 - 18.0 G/DL) 9.5 L 9.6 L Hct (42 - 52 %) 29.1 L 29.3 L MCV (80.0 - 94.0 FL) 85.9 85.1 MCH (27.0 - 31.0 PG) 27.9 27.9 MCHC (33.0 - 37.0 G/DL) 32.5 L 32.8 L RDW (11.5 - 14.5 %) 15.1 H 14.4 Plt Count (130 - 400 /CUMM) 242 243 MPV (7.4 - 10.4 FL) 8.1 8.1 Gran % (42.2 - 75.2 %) 68.4 75.8 H Lymphocytes % (20.5 - 51.1 %) 20.4 L 15.7 L Monocytes % (1.7 - 9.3 %) 8.5 6.2 Eosinophils % (0 - 5 %) 1.6 1.5 Basophils % (0.0 - 2.0 %) 1.1 0.8 Absolute Granulocytes (1.4 - 6.5 /CUMM) 3.9 5.7 Segmented Neutrophils (42.2 - 75.2 %) 67 Band Neutrophils (0.0 - 5.0 %) 7 H Absolute Lymphocytes (1.2 - 3.4 /CUMM) 1.2 1.2 Lymphocytes (20.5 - 51.1 %) 16 L Monocytes (1.7 - 9.3 %) 5 Absolute Monocytes (0.10 - 0.60 /CUMM) 0.5 0.5 Eosinophils (0 - 5.0 %) 1 Absolute Eosinophils (0.0 - 0.7 /CUMM) 0.1 0.1 Basophils (0.0 - 2.0 %) 1 Absolute Basophils (0.0 - 0.2 /CUMM) 0.1 0.1 Metamyelocytes (0.0 - 1.0 %) 3 H Platelet Estimate (ADEQUATE) VERIFIED BY SMEAR Polychromasia 1+ Anisocytosis 1+ /09 04/08 0600 0615 Chemistry Sodium (137 - 145 mmol/L) 140 Potassium (3.5 - 5.1 mmol/L) 5.9 H Chloride (98 - 107 mmol/L) 101 Carbon Dioxide (22 - 30 mmol/L) 28 Anion Gap (5 - 16) 10 BUN (9 - 20 mg/dL) 27 H Creatinine (0.7 - 1.2 mg/dL) 1.5 H Estimated GFR (>60 ml/min) 46 L BUN/Creatinine Ratio (7 - 25 %) 18.0 Magnesium (1.6 - 2.3 mg/dL) 1.9 Hematology CBC w Diff MAN DIFF ORDERED WBC (4.8 - 10.8 /CUMM) 8.3 RBC (4.70 - 6.10 /CUMM) 3.40 L Hgb (14.0 - 18.0 G/DL) 9.5 L Hct (42 - 52 %) 29.2 L MCV (80.0 - 94.0 FL) 86.1 MCH (27.0 - 31.0 PG) 27.9 MCHC (33.0 - 37.0 G/DL) 32.4 L RDW (11.5 - 14.5 %) 14.6 H Plt Count (130 - 400 /CUMM) 248 MPV (7.4 - 10.4 FL) 8.1 Gran % (42.2 - 75.2 %) 78.0 H Lymphocytes % (20.5 - 51.1 %) 12.9 L Monocytes % (1.7 - 9.3 %) 7.1 Eosinophils % (0 - 5 %) 1.5 Basophils % (0.0 - 2.0 %) 0.5 Absolute Granulocytes (1.4 - 6.5 /CUMM) 6.5 Segmented Neutrophils (42.2 - 75.2 %) 70 Band Neutrophils (0.0 - 5.0 %) 10 H Absolute Lymphocytes (1.2 - 3.4 /CUMM) 1.1 L Lymphocytes (20.5 - 51.1 %) 10 L Monocytes (1.7 - 9.3 %) 5 Absolute Monocytes (0.10 - 0.60 /CUMM) 0.6 Eosinophils (0 - 5.0 %) 2 Absolute Eosinophils (0.0 - 0.7 /CUMM) 0.1 Absolute Basophils (0.0 - 0.2 /CUMM) 0 Metamyelocytes (0.0 - 1.0 %) 3 H Nucleated RBCs (0.0 - 0.0 /100WBC) 1 H Normocytic RBCs VERIFIED Normochromic RBCs VERIFIED Toxicology Tacrolimus Pending Cancelled Imaging/Other Studies: TESS: 1. There are no vegetative lesions detected on this examination 2. Aortic sclerosis is present with no valvular stenosis or insufficiency. 3. Mitral leaflet thickening is present with minimal to mild mitral insufficiency and mild left atrial enlargement. 4. The left atrial appendage is normal with no evidence of thrombus. The appendage contractility is normal. 5. The pulmonary venous anatomy is normal bilaterally with normal Doppler profiles 6. The left ventricular chamber size and systolic function appear normal. Mild concentric hypertrophy is present 7. The right heart structures are grossly normal. Minimal to mild tricuspid insufficiency is present with minimal pulmonic insufficiency. The right ventricular systolic pressure cannot be assessed. 8. A small patent foramen ovale is noted. There is a minimal right to left shunt noted with manual Valsalva maneuver. A left atrial septal pouch is noted 8. The ascending aorta is normal in size. Grade 2 atheromatous plaque is noted in the distal aortic arch and proximal descending thoracic aorta. There is no mobile debris detected.
--- NOTE | 2017-10-11 11:54 | PN- Diabetes ---
Assessment/Plan Diabetes Assessment: Patient is a 71-year-old male with a PMH significant for ESRD status post renal transplant on tacrolimus and CellCept, paroxysmal atrial fibrillation on Eliquis , HTN, HLD, CVA, DM type 2, with recent admission to [facility] for osteomyelitis, status post amputation of the toes, was admitted for chronic right foot infection. He underwent angiogram, angioplasty of right peroneal artery, right foot procedure and wound vac placement on 09/27/2017. He had TESS done on 09/28/2017. Currently he is on Levemir 28 units daily, Novolog coverage before meals and Novolog coverage at bedtime. His FSGs were 224, 254, 144, 259, 258 and 277. As per nurse, patient had montserratian ice before lunch. Plan: 1. increase Levemir to 30 units daily; 2. adjust Novolog coverage before meals and adjust Novolog coverage at bedtime; detail see the inpatient DM orders; 3. monitor FSGs. will follow. Inpatient Diabetes Orders Before Each Meal: Bolus Insulin: Novolog < 80 mg/dl: no coverage 80-100 mg/dl: 6 units 101-120 mg/dl: 6 units 121-150 mg/dl: 6 units 151-200 mg/dl: 7 units 201-250 mg/dl: 8 units 251-300 mg/dl: 9 units 301-350 mg/dl: 11 units 351-400 mg/dl: 13 units > 400 mg/dl: 14 units Bedtime: Bolus Insulin: Novolog < 80 mg/dl: no coverage 80-100 mg/dl: no coverage 101-120 mg/dl: no coverage 121-150 mg/dl: no coverage 151-200 mg/dl: no coverage 201-250 mg/dl: 2 units 251-300 mg/dl: 3 units 301-350 mg/dl: 4 units 351-400 mg/dl: 5 units > 400 mg/dl: 6 units Subjective Subjective: His FSGs were not controlled. Objective Last 24 Hrs of Vital Signs/I&O Vital Signs Date Time Temp Pulse Resp B/P B/P Pulse O2 O2 Flow FiO2 Mean Ox Delivery Rate 10/11 1032 98.6 63 22 130/84 10/11 1031 98.6 63 22 130/84 10/11 0800 Room Air 10/11 0656 98.6 63 22 130/84 94 10/10 2239 98.4 65 17 138/76 97 10/10 1455 97.8 60 18 148/80 95 Room Air Intake & Output 10/11 1600 10/11 0800 10/11 0000 Intake Total 120 210 Output Total 1000 550 Balance -1000 120 -340 Intake, IV 90 Intake, Oral 120 120 Output, Urine 1000 550 Patient 213 lb Weight Findings Pertinent Lab/Joel Results: Laboratory Tests 10/11 0630 Chemistry Sodium (137 - 145 mmol/L) 140 Potassium (3.5 - 5.1 mmol/L) 5.4 H Chloride (98 - 107 mmol/L) 103 Carbon Dioxide (22 - 30 mmol/L) 27 Anion Gap (5 - 16) 10 BUN (9 - 20 mg/dL) 39 H Creatinine (0.7 - 1.2 mg/dL) 1.5 H Estimated GFR (>60 ml/min) 46 L BUN/Creatinine Ratio (7 - 25 %) 26.0 H Glucose (65 - 99 mg/dL) 210 H Magnesium (1.6 - 2.3 mg/dL) 2.1 Hematology CBC w Diff NO MAN DIFF REQ WBC (4.8 - 10.8 /CUMM) 5.7 RBC (4.70 - 6.10 /CUMM) 3.38 L Hgb (14.0 - 18.0 G/DL) 9.5 L Hct (42 - 52 %) 29.1 L MCV (80.0 - 94.0 FL) 85.9 MCH (27.0 - 31.0 PG) 27.9 MCHC (33.0 - 37.0 G/DL) 32.5 L RDW (11.5 - 14.5 %) 15.1 H Plt Count (130 - 400 /CUMM) 242 MPV (7.4 - 10.4 FL) 8.1 Gran % (42.2 - 75.2 %) 68.4 Lymphocytes % (20.5 - 51.1 %) 20.4 L Monocytes % (1.7 - 9.3 %) 8.5 Eosinophils % (0 - 5 %) 1.6 Basophils % (0.0 - 2.0 %) 1.1 Absolute Granulocytes (1.4 - 6.5 /CUMM) 3.9 Absolute Lymphocytes (1.2 - 3.4 /CUMM) 1.2 Absolute Monocytes (0.10 - 0.60 /CUMM) 0.5 Absolute Eosinophils (0.0 - 0.7 /CUMM) 0.1 Absolute Basophils (0.0 - 0.2 /CUMM) 0.1
[2017-10-11 14:30] VITALS: BP 108/62
--- NOTE | 2017-10-11 16:34 | PN- Vascular Surgery ---
Surgical Brief Attending Note Brief Attending Note: Patient is currently being treated with negative pressure right foot wound dressing. I spoke with Dr. Dickinson and Dr. Dye. Dr. Dye is not too optimistic about right foot healing. I spoke with the patient today regarding a major amputation which most likely be below knee. He is not ready to make this decision. According to Dr. Dye and Dr. Dickinson, there is no urgency in performing a major amputation. Also as mentioned above, the patient is not ready to make any decision regarding a major amputation. He is not septic. He will be scheduled for outpatient follow-up and most likely the an outpatient scheduling for below-knee amputation once he is discharged. While in hospital please risk stratified the patient for an upcoming amputation should he decide to go ahead with it. Thank you.
--- NOTE | 2017-10-11 19:19 | PN- Pulmonary ---
Subjective HPI/Critical Care Issues: Afebrile. He continues to complain of a twinging pain in his right foot but otherwise feels well with no further odynophagia or diarrhea. Objective Current Medications: Current Medications Sig/Ira Start time Last Medication Dose Route Stop Time Status Admin Acetaminophen 650 MG .STK-MED ONE 10/10 2138 DC PO 10/11 2139 Acetaminophen 650 MG Q6P PRN 09/22 1600 AC 10/10 PO 214 Amiodarone HCl 100 MG DAILY 09/23 1000 AC 10/11 PO 1031 Apixaban 5 MG BID 10/06 1500 AC 10/11 PO 1031 Benzocaine/Menthol 1 CELIA Q2P PRN 09/30 0100 AC 09/30 PO 0118 Calcium/Vitamin D 500 MG DAILY 09/22 1929 AC 10/11 PO 1031 Daptomycin 500 MG Q24H 10/09 2100 AC 10/10 Sodium Chloride 50 ML IV 2121 Epoetin Onofre 20,000 U ONCE A WEEK 09/29 1030 AC 10/06 SC 1020 Escitalopram Oxalate 10 MG DAILY 09/23 1000 AC 10/11 PO 1031 Insulin Aspart 0 TIDAC/HS 10/06 1700 AC 10/11 SC 1759 Insulin Detemir 30 UNITS 8AM 10/12 0800 DC SC Insulin Detemir 30 UNITS 8AM 10/11 0830 AC 10/11 SC 0834 Insulin Detemir 28 UNITS 8AM 10/11 0800 DC SC Lidocaine/Diphenhydr/ 5 ML Q4-6 PRN PRN 09/30 1530 AC 10/03 Alum/Mg/Simeth PO 2130 Metoprolol Succinate 12.5 MG DAILY 09/23 1000 AC 10/11 PO 1032 Mycophenolate Mofetil 500 MG TID 10/09 2200 AC 10/11 PO 1759 Omeprazole 20 MG DAILY AC 10/03 1334 AC 10/11 PO 0625 Tacrolimus 2 MG 10/10 06 AC 10/11 PO 0625 Tacrolimus 1.5 MG 10/10 0600 AC 10/11 PO 0625 Vital Signs & I&O Last 24 Hrs of Vitals and I&O: Vital Signs Date Time Temp Pulse Resp B/P B/P Pulse O2 O2 Flow FiO2 Mean Ox Delivery Rate 10/11 1430 98.7 68 16 108/62 97 Room Air 10/11 1032 98.6 63 22 130/84 10/11 1031 98.6 63 22 130/84 10/11 0800 Room Air 10/11 0656 98.6 63 22 130/84 94 10/10 2239 98.4 65 17 138/76 97 Intake & Output 10/11 1600 10/11 0800 10/11 0000 Intake Total 860 120 210 Output Total 1325 550 Balance -465 120 -340 Intake, IV 90 Intake, Oral 860 120 120 Output, Urine 1325 550 Patient 213 lb Weight Laboratory Tests 10/11 10/10 0630 0632 Chemistry Sodium (137 - 145 mmol/L) 140 140 Potassium (3.5 - 5.1 mmol/L) 5.4 H 5.5 H Chloride (98 - 107 mmol/L) 103 101 Carbon Dioxide (22 - 30 mmol/L) 27 28 Anion Gap (5 - 16) 10 12 BUN (9 - 20 mg/dL) 39 H 31 H Creatinine (0.7 - 1.2 mg/dL) 1.5 H 1.4 H Estimated GFR (>60 ml/min) 46 L 50 L BUN/Creatinine Ratio (7 - 25 %) 26.0 H 22.1 Glucose (65 - 99 mg/dL) 210 H Magnesium (1.6 - 2.3 mg/dL) 2.1 Hematology CBC w Diff NO MAN DIFF REQ MAN DIFF ORDERED WBC (4.8 - 10.8 /CUMM) 5.7 7.5 RBC (4.70 - 6.10 /CUMM) 3.38 L 3.44 L Hgb (14.0 - 18.0 G/DL) 9.5 L 9.6 L Hct (42 - 52 %) 29.1 L 29.3 L MCV (80.0 - 94.0 FL) 85.9 85.1 MCH (27.0 - 31.0 PG) 27.9 27.9 MCHC (33.0 - 37.0 G/DL) 32.5 L 32.8 L RDW (11.5 - 14.5 %) 15.1 H 14.4 Plt Count (130 - 400 /CUMM) 242 243 MPV (7.4 - 10.4 FL) 8.1 8.1 Gran % (42.2 - 75.2 %) 68.4 75.8 H Lymphocytes % (20.5 - 51.1 %) 20.4 L 15.7 L Monocytes % (1.7 - 9.3 %) 8.5 6.2 Eosinophils % (0 - 5 %) 1.6 1.5 Basophils % (0.0 - 2.0 %) 1.1 0.8 Absolute Granulocytes (1.4 - 6.5 /CUMM) 3.9 5.7 Segmented Neutrophils (42.2 - 75.2 %) 67 Band Neutrophils (0.0 - 5.0 %) 7 H Absolute Lymphocytes (1.2 - 3.4 /CUMM) 1.2 1.2 Lymphocytes (20.5 - 51.1 %) 16 L Monocytes (1.7 - 9.3 %) 5 Absolute Monocytes (0.10 - 0.60 /CUMM) 0.5 0.5 Eosinophils (0 - 5.0 %) 1 Absolute Eosinophils (0.0 - 0.7 /CUMM) 0.1 0.1 Basophils (0.0 - 2.0 %) 1 Absolute Basophils (0.0 - 0.2 /CUMM) 0.1 0.1 Metamyelocytes (0.0 - 1.0 %) 3 H Platelet Estimate (ADEQUATE) VERIFIED BY SMEAR Polychromasia 1+ Anisocytosis 1+ 04/ 0600 Toxicology Tacrolimus (() mcg/L) 5.3 Impression/Plan Impression/Plan Impression/Plan: Head: atraumatic, normal appearance Eyes:Bilateral: normal appearance, PERRL, EOMI. Ears, Nose, Throat: normal pharynx, normal ENT inspection, hearing grossly normal Neck: normal inspection, supple, full range of motion, no midline tenderness Respiratory: normal breath sounds, chest non-tender, no respiratory distress, quiet respiration, lungs clear Cardiovascular: normal peripheral pulses, irregularly irregular, norml femoral pulses equa Peripheral Pulses: 4+ carotid (R), 4+ carotid (L) Gastrointestinal: normal bowel sounds, soft, non-tender, no organomegaly Back: normal inspection, normal range of motion, no vertebral tenderness Extremities: no edema, pelvis stable,s/p debridement and in dressing with wound vac in place Neurologic/Psych: normal Reflexes:2+: bicep (R), bicep (L). Lymphatic: no anterior cervical adenavf intact IMPRESSION This is a gentleman with s/p renal transplant with infected toe with osteo s/p surg * ON rx for - Infected foot with fever on admission MRSA sepsis- in a pt who is immunosupp (recent toe amputation with osteo, s/p complete debridement of osteo with toe amputation and wound closure on 09/09/17) now - MRSA infection and resolving sepsis. s/p angioplasty of peroneal artery and wound redebridement of the foot. PT now has a wound vac, and on dapto, and would need usp abx. No sig endocarditis noted in junior. Poor wound healing and ongoing eval for further plan if he does not heal may need bka * Transient neutopenia and anemia - was on neupogen / cmv viral load neg, now his mycophenolate has been reduce to 500 bid and pt back on his original tacrolimus dose (3.5 total)- levels a little low no * Resolved odynophagia with endoscopy essentially unremarkable except for atrophic gastritis annd prob gastropersis * Resolving Diarrhea has improved * REsolved delirium without Sig neuro deficit * MRI showing very small punctate lesions prob ateromatous small emboli, on anticoag, and statin * PT with Pafib in Sinus and sig atheromatous aorta, small pfo, - on eloquis * Prolonged qtc, previous low mag need to continue to monitor * REsolving SHIRA with CKD s/p renal transplant, creat now 1.5 (recent contrast use) * DM insulin requiring endo onboard * PVD, previous history of stoke, and previous toe amputation, now angioplasty * Previous secondary hyperparathyroid. Sig autonomic dysfunction was on fludocortisone * Pafib on eliquis (in sinus on amiodarone) (being dosed for renal function) now held on heparin * Depression and anxiety * Peripheral neuropathy * Resolved Mild ekg changes with slight elevated troponin stable REC * COnt abx / ID note appretiated * Cont current dose of tacrolimus, check levels again daily (dose increased few days ago) * mycophenolate 500 500 tid for now (Discussed with Dr. Gauthier his transplant nephro before) * Tylenol for pain and if his pain is severe can use tramadol prn (pt did get confused before) * IF pain in his hands are still worse in a day or two then can start plaquanil 200 mg qd * cont anticoag * Vascular note reviewed * Daily tacrolimus level and will adjust dose subsequently * ID and Podiatry, vascular, Cardio,Endo, GI and renal following * EKG monitoring per cardio, recent work up no active ischemia and pt is stable for surg if he needs it * Cont metoprolol, statin, amio, antidepressant lexapro * Keep sugars less than 150 * Once ambulatory start his home dose of fludrocortizone
[2017-10-11 22:44] VITALS: BP 124/64
--- NOTE | 2017-10-12 07:15 | PN- Housestaff ---
Subjective Follow-up For: Osteomyelitis MRSA bacteremia New LBBB SHIRA with history of renal transplant Neutropenia Altered mental status Tele-Events Since Last Visit: NSR HR 60s Subjective: Patient was seen and examined at bedside. He is resting comfortably. He had no acute events overnight. He remains distraught over his insulin coverage. And continues to complain of mild pain of the right foot. He was seen by vascular surgery yesterday who are recommending a BKA at some time, patient is unwilling to discuss this at this time. Patient also does report mildly worsening of hand stiffness/pain patient denies any chest pain, shortness breath, palpitation, nausea, vomiting, fever, chills. Review of Systems Constitutional: Denies: chills, fever. EENTM: Reports: no symptoms. Cardiovascular: Reports: no symptoms. Respiratory: Reports: no symptoms. Gastrointestinal: Reports: no symptoms. Genitourinary: Reports: no symptoms. Musculoskeletal: Reports: no symptoms. Skin: Reports: no symptoms. Objective Last 24 Hrs of Vital Signs/I&O Vital Signs Date Time Temp Pulse Resp B/P B/P Pulse O2 O2 Flow FiO2 Mean Ox Delivery Rate 10/11 2244 97.8 68 18 124/64 94 Room Air 10/11 1430 98.7 68 16 108/62 97 Room Air 10/11 1032 98.6 63 22 130/84 10/11 1031 98.6 63 22 130/84 10/11 0800 Room Air Intake & Output 10/12 0800 10/12 0000 10/11 1600 Intake Total 880 860 Output Total 250 1325 Balance 630 -465 Intake, IV 60 Intake, Oral 820 860 Output, Urine 250 1325 Patient 212 lb Weight Weight Bed scale Measurement Method Physical Exam General Appearance: Alert, Oriented X3, Cooperative, No Acute Distress Skin Temp/Moisture Exam: Warm/Dry Sepsis Skin Exam (color): Normal for Ethnicity Cardiovascular: Regular Rate, Normal S1, Normal S2 Lungs: Clear to Auscultation, Normal Air Movement Abdomen: Normal Bowel Sounds, Soft, No Tenderness Neurological: Normal Speech, Normal Tone, diminished sensation of the feel bilaterally Extremities: R foot with woundvac in place Current Medications: Current Medications Sig/Ira Start time Last Medication Dose Route Stop Time Status Admin Acetaminophen 650 MG Q6P PRN 09/22 1600 AC 10/12 PO 0143 Amiodarone HCl 100 MG DAILY 09/23 1000 AC 10/11 PO 1031 Apixaban 5 MG BID 10/06 1500 AC 10/11 PO 2133 Benzocaine/Menthol 1 CELIA Q2P PRN 09/30 0100 AC 09/30 PO 0118 Calcium/Vitamin D 500 MG DAILY 09/22 1929 AC 10/11 PO 1031 Daptomycin 500 MG Q24H 10/09 2100 AC 10/11 Sodium Chloride 50 ML IV 2133 Epoetin Onofre 20,000 U ONCE A WEEK 09/29 1030 AC 10/06 SC 1020 Escitalopram Oxalate 10 MG DAILY 09/23 1000 AC 10/11 PO 1031 Insulin Aspart 0 TIDAC/HS 10/06 1700 AC 10/11 SC 2133 Insulin Detemir 30 UNITS 8AM 10/12 0800 DC SC Insulin Detemir 30 UNITS 8AM 10/11 0830 AC 10/11 SC 0834 Insulin Detemir 28 UNITS 8AM 10/11 0800 DC SC Lidocaine/Diphenhydr/ 5 ML Q4-6 PRN PRN 09/30 1530 AC 10/03 Alum/Mg/Simeth PO 2130 Metoprolol Succinate 12.5 MG DAILY 09/23 1000 AC 10/11 PO 1032 Mycophenolate Mofetil 500 MG TID 10/09 2200 AC 10/11 PO 2133 Omeprazole 20 MG DAILY AC 10/03 1334 AC 10/12 PO 0556 Tacrolimus 2 MG 0600 10/10 0600 AC 10/12 PO 0558 Tacrolimus 1.5 MG 0600 10/10 0600 AC 10/12 PO 0556 Last 24 Hrs of Lab/Joel Results Last 24 Hrs of Labs/Mics: Laboratory Tests 10/12/17 0607: Sodium Pending, Potassium Pending, Chloride Pending, Carbon Dioxide Pending, Anion Gap Pending, BUN Pending, Creatinine Pending, BUN/Creatinine Ratio Pending , Creatine Kinase Pending, ESR Westergren Pending, Tacrolimus Pending Assessment/Plan Assessment: Patient is a 71-year-old male with an extensive past medical history significant for ESRD status post renal transplant on tacrolimus and CellCept, paroxysmal A. fib on Eliquis, HTN, HLD, CVA, DM admission to [facility] for osteomyelitis, status post amputation of right and left third great toe who presented with complaints of malaise, nausea, vomiting, diarrhea, poor appetite with recurrent osteomyelitis of his right foot. #MRSA bacteremia secondary to right foot osteomyelitis Prevascular surgery, patient will require BKA. Patient will follow-up as an outpatient with vascular surgery. Will be evaluated by cardiology for risk stratification for surgery. Creatinine kinase 190, ESR 38 -Continue daptomycin to complete a four-week course, end date 10/25 -Weekly CPK while on daptomycin -ID recommendations appreciated -Patient will be stable for discharge soon #SHIRA -Hyperkalemia is improving -Continue to monitor and follow-up nephrology recommendations, recommendations appreciated #DM Poorly controlled with elevated blood sugars above 200s - Levemir increased this on endocrine recommendations -endocrine recommendations appreciated #Arthritis Patient reported worsening pain of an stiffness of his hands bilaterally -Restarted Plaquenil 200 mg daily #Chronic medical problems -Continue current medication regimen Diet: Diabetic diet, with potassium restriction DVT prophylaxis: Apixaban CODE STATUS: Full code Problem List: 1. PVD (peripheral vascular disease) 2. Osteomyelitis of foot, right, acute 3. Hyperkalemia Pain Ratin Pain Location: R foot and hands bilaterally Pain Goal: Pain 4 or less Pain Plan: pain pathway Tomorrow's Labs & Rationales: tacrolimus level, bep
[2017-10-12 07:28] VITALS: BP 110/56
--- NOTE | 2017-10-12 09:24 | PN- Diabetes ---
Assessment/Plan Diabetes Assessment: Patient is a 71-year-old male with a PMH significant for ESRD status post renal transplant on tacrolimus and CellCept, paroxysmal atrial fibrillation on Eliquis , HTN, HLD, CVA, DM type 2, with recent admission to [facility] for osteomyelitis, status post amputation of the toes, was admitted for chronic right foot infection. He underwent angiogram, angioplasty of right peroneal artery, right foot procedure and wound vac placement on 09/27/2017. He had TESS done on 09/28/2017. Currently he is on Levemir 30 units daily, Novolog coverage before meals was adjusted on 10/11. In addition, he is on Novolog coverage at bedtime. His FSGs were 277, 132, 243 and 205. Plan: 1. increase Levemir to 33 units daily; 2. continue Novolog coverage before meals and Novolog coverage at bedtime; 3. monitor FSGs. will follow. Subjective Subjective: His FSGs were still up and down. Objective Last 24 Hrs of Vital Signs/I&O Vital Signs Date Time Temp Pulse Resp B/P B/P Pulse O2 O2 Flow FiO2 Mean Ox Delivery Rate 10/12 0728 98.4 62 18 110/56 94 Room Air 10/11 2244 97.8 68 18 124/64 94 Room Air 10/11 1430 98.7 68 16 108/62 97 Room Air 10/11 1032 98.6 63 22 130/84 10/11 1031 98.6 63 22 130/84 Intake & Output 10/12 1600 10/12 0800 10/12 0000 Intake Total 275 880 Output Total 250 Balance 275 630 Intake, IV 175 60 Intake, Oral 100 820 Number 1 Bowel Movements Output, Urine 250 Patient 212 lb Weight Weight Bed scale Measurement Method Findings Pertinent Lab/Joel Results: Laboratory Tests 10/12 0607 Chemistry Sodium (137 - 145 mmol/L) 139 Potassium (3.5 - 5.1 mmol/L) 5.3 H Chloride (98 - 107 mmol/L) 103 Carbon Dioxide (22 - 30 mmol/L) 24 Anion Gap (5 - 16) 12 BUN (9 - 20 mg/dL) 42 H Creatinine (0.7 - 1.2 mg/dL) 1.5 H Estimated GFR (>60 ml/min) 46 L BUN/Creatinine Ratio (7 - 25 %) 28.0 H Creatine Kinase (55 - 170 U/L) 190 H Hematology ESR Westergren Pending Toxicology Tacrolimus Pending
--- NOTE | 2017-10-12 12:46 | PN- Cardiology ---
Subjective Subjective: stable, sitting at bedside eating lunch. No new issues or symptoms. Objective Vital Signs and I&Os Vital Signs Date Time Temp Pulse Resp B/P B/P Pulse O2 O2 Flow FiO2 Mean Ox Delivery Rate 10/12 0832 62 110/56 10/12 0932 62 110/56 10/12 0728 98.4 62 18 110/56 94 Room Air 10/11 2244 97.8 68 18 124/64 94 Room Air 10/11 1430 98.7 68 16 108/62 97 Room Air Intake & Output 10/12 1600 10/12 0800 10/12 0000 10/11 1600 10/11 0800 10/11 0000 Intake Total 300 275 880 860 120 210 Output Total 140 185 1734 550 Balance -200 275 630 -465 120 -340 Intake, IV 175 60 90 Intake, Oral 300 100 820 860 120 120 Number 1 Bowel Movements Output, Urine 418 518 6881 550 Patient 212 lb 213 lb Weight Weight Bed scale Measurement Method Current Medications: Current Medications Sig/Ira Start time Last Medication Dose Route Stop Time Status Admin Acetaminophen 650 MG .STK-MED ONE 10/12 0141 DC PO 10/12 0142 Acetaminophen 650 MG Q6P PRN 09/22 1600 AC 10/12 PO 0143 Amiodarone HCl 100 MG DAILY 09/23 1000 AC 10/12 PO 0932 Apixaban 5 MG BID 10/06 1500 AC 10/12 PO 0931 Benzocaine/Menthol 1 CELIA Q2P PRN 09/30 0100 AC 09/30 PO 0118 Calcium/Vitamin D 500 MG DAILY 09/22 1929 AC 10/12 PO 0931 Daptomycin 500 MG Q24H 10/09 2100 AC 10/11 Sodium Chloride 50 ML IV 2133 Epoetin Onofre 20,000 U ONCE A WEEK 09/29 1030 AC 10/06 SC 1020 Escitalopram Oxalate 10 MG DAILY 09/23 1000 AC 10/12 PO 0931 Insulin Aspart 0 TIDAC/HS 10/06 1700 AC 10/12 SC 1220 Insulin Detemir 33 UNITS 8AM 10/12 0806 AC 10/12 SC 0931 Insulin Detemir 30 UNITS 8AM 10/11 0830 DC 10/11 SC 0834 Lidocaine/Diphenhydr/ 5 ML Q4-6 PRN PRN 09/30 1530 AC 10/03 Alum/Mg/Simeth PO 2130 Metoprolol Succinate 12.5 MG DAILY 09/23 1000 AC 10/12 PO 0932 Mycophenolate Mofetil 500 MG TID 10/09 2200 AC 10/12 PO 0932 Omeprazole 20 MG DAILY AC 10/03 1334 AC 10/12 PO 0556 Tacrolimus 2 MG 00 10/10 06 AC 10/12 PO 0558 Tacrolimus 1.5 MG 10/10 06 AC 10/12 PO 0556 Results Last 48 Hrs of Labs/Mics: Laboratory Tests 10/12/17 0607: Anion Gap 12, Estimated GFR 46 L, BUN/Creatinine Ratio 28.0 H, Creatine Kinase 190 H, ESR Westergren 38 H, Tacrolimus Pending 10/11/17 0630: Anion Gap 10, Estimated GFR 46 L, BUN/Creatinine Ratio 26.0 H, Glucose 210 H, Magnesium 2.1, CBC w Diff NO MAN DIFF REQ, RBC 3.38 L, MCV 85.9, MCH 27.9, MCHC 32.5 L, RDW 15.1 H, MPV 8.1, Gran % 68.4, Lymphocytes % 20.4 L, Monocytes % 8.5, Eosinophils % 1.6, Basophils % 1.1, Absolute Granulocytes 3.9, Absolute Lymphocytes 1.2, Absolute Monocytes 0.5, Absolute Eosinophils 0.1, Absolute Basophils 0.1 Assessment/Plan Assessment/Plan Assessment: 1. Minimally elevated troponin suggestive of type II VA 2. MRSA bacteremia with evidence of possible aortic valve vegetation on transthoracic echocardiogram; TESS negative 3. Osteomyelitis 4. Abnormal ECG 5. Status post renal transplant 6. Anemia 7. Mild hyponatremia Recommendations: -Continue current medical regimen. -Continue as per medical team. -Awaiting discharge to [facility]. -Eventual outpatient amputation pending. Further cardiac workup as necessary as outpatient. Continue telemetry? No
--- NOTE | 2017-10-12 14:25 | PN- Pulmonary ---
Subjective HPI/Critical Care Issues: Doing well sleeping fatigue Objective Current Medications: Current Medications Sig/Ira Start time Last Medication Dose Route Stop Time Status Admin Acetaminophen 650 MG .STK-MED ONE 10/12 0141 DC PO 10/12 0142 Acetaminophen 650 MG Q6P PRN 09/22 1600 AC 10/12 PO 0143 Amiodarone HCl 100 MG DAILY 09/23 1000 AC 10/12 PO 0932 Apixaban 5 MG BID 10/06 1500 AC 10/12 PO 0931 Benzocaine/Menthol 1 CELIA Q2P PRN 09/30 0100 AC 09/30 PO 0118 Calcium/Vitamin D 500 MG DAILY 09/22 1929 AC 10/12 PO 0931 Daptomycin 500 MG Q24H 10/09 2100 AC 10/11 Sodium Chloride 50 ML IV 2133 Epoetin Onofre 20,000 U ONCE A WEEK 09/29 1030 AC 10/06 GA 1020 Escitalopram Oxalate 10 MG DAILY 09/23 1000 AC 10/12 PO 0931 Insulin Aspart 0 TIDAC/HS 10/06 1700 AC 10/12 SC 1220 Insulin Detemir 33 UNITS 8AM 10/12 0806 AC 10/12 SC 0931 Insulin Detemir 30 UNITS 8AM 10/11 0830 DC 10/11 SC 0834 Lidocaine/Diphenhydr/ 5 ML Q4-6 PRN PRN 09/30 1530 AC 10/03 Alum/Mg/Simeth PO 2130 Metoprolol Succinate 12.5 MG DAILY 09/23 1000 AC 10/12 PO 0932 Mycophenolate Mofetil 500 MG TID 10/09 2200 AC 10/12 PO 0932 Omeprazole 20 MG DAILY AC 10/03 1334 AC 10/12 PO 0556 Tacrolimus 2 MG 00 10/10 0600 AC 10/12 PO 0558 Tacrolimus 1.5 MG 00 10/10 0600 AC 10/12 PO 0556 Vital Signs & I&O Last 24 Hrs of Vitals and I&O: Vital Signs Date Time Temp Pulse Resp B/P B/P Pulse O2 O2 Flow FiO2 Mean Ox Delivery Rate 10/13 931 62 110/56 10/12 0832 62 110/56 10/12 0728 98.4 62 18 110/56 94 Room Air 10/11 2244 97.8 68 18 124/64 94 Room Air 10/11 1430 98.7 68 16 108/62 97 Room Air Intake & Output 10/12 1600 10/12 0800 10/12 0000 Intake Total 300 275 880 Output Total 500 250 Balance -200 275 630 Intake, IV 175 60 Intake, Oral 300 100 820 Number 1 Bowel Movements Output, Urine 500 250 Patient 212 lb Weight Weight Bed scale Measurement Method Impression/Plan Impression/Plan Impression/Plan: Head: atraumatic, normal appearance Eyes:Bilateral: normal appearance, PERRL, EOMI. Ears, Nose, Throat: normal pharynx, normal ENT inspection, hearing grossly normal Neck: normal inspection, supple, full range of motion, no midline tenderness Respiratory: normal breath sounds, chest non-tender, no respiratory distress, quiet respiration, lungs clear Cardiovascular: normal peripheral pulses, irregularly irregular, norml femoral pulses equa Peripheral Pulses: 4+ carotid (R), 4+ carotid (L) Gastrointestinal: normal bowel sounds, soft, non-tender, no organomegaly Back: normal inspection, normal range of motion, no vertebral tenderness Extremities: no edema, pelvis stable,s/p debridement and in dressing with wound vac in place Neurologic/Psych: normal Reflexes:2+: bicep (R), bicep (L). Lymphatic: no anterior cervical adenavf intact IMPRESSION This is a gentleman with s/p renal transplant with infected toe with osteo s/p surg * ON rx for - Infected foot with fever on admission MRSA sepsis- in a pt who is immunosupp (recent toe amputation with osteo, s/p complete debridement of osteo with toe amputation and wound closure on 09/09/17) now - MRSA infection and resolving sepsis. s/p angioplasty of peroneal artery and wound redebridement of the foot. PT now has a wound vac, and on dapto, and would need rodent exterminator abx. No sig endocarditis noted in junior. Poor wound healing and ongoing eval for further plan if he does not heal may need bka * Transient neutopenia and anemia - was on neupogen / cmv viral load neg, now his mycophenolate has been reduce to 500 bid and pt back on his original tacrolimus dose (3.5 total)- levels a little low no * Resolved odynophagia with endoscopy essentially unremarkable except for atrophic gastritis annd prob gastropersis * Resolving Diarrhea has improved * REsolved delirium without Sig neuro deficit * MRI showing very small punctate lesions prob ateromatous small emboli, on anticoag, and statin * PT with Pafib in Sinus and sig atheromatous aorta, small pfo, - on eloquis * Prolonged qtc, previous low mag need to continue to monitor * REsolving SHIRA with CKD s/p renal transplant, creat now 1.5 (recent contrast use) * DM insulin requiring endo onboard * PVD, previous history of stoke, and previous toe amputation, now angioplasty * Previous secondary hyperparathyroid. Sig autonomic dysfunction was on fludocortisone * Pafib on eliquis (in sinus on amiodarone) (being dosed for renal function) now held on heparin * Depression and anxiety * Peripheral neuropathy * Resolved Mild ekg changes with slight elevated troponin stable REC * COnt abx / ID note appretiated * Cont current dose of tacrolimus, check levels again daily (dose increased few days ago) * mycophenolate 500 500 tid for now (Discussed with Dr. Gauthier his transplant nephro before) * Tylenol for pain and if his pain is severe can use tramadol prn (pt did get confused before) * IF pain in his hands are still worse in a day or two then can start plaquanil 200 mg qd * cont anticoag * Vascular note reviewed * Daily tacrolimus level and will adjust dose subsequently * ID and Podiatry, vascular, Cardio,Endo, GI and renal following * EKG monitoring per cardio, recent work up no active ischemia and pt is stable for surg if he needs it, cardio is following and may consider a stress test to clear for surg if he needs it in the next few weeks pending bed search * Cont metoprolol, statin, amio, antidepressant lexapro * Keep sugars less than 150 * Once ambulatory start his home dose of fludrocortizone k to dc soon
[2017-10-12 14:42] VITALS: BP 132/64
[2017-10-12 21:55] VITALS: BP 140/90
[2017-10-13 05:55] LABS: ABSOLUTE BASOPHIL COUNT 0.1 /CUMM (0.0-0.2); ABSOLUTE EOSINOPHIL COUNT 0.1 /CUMM (0.0-0.7); ABSOLUTE GRANULOCYTE CT 4.6 /CUMM (1.4-6.5); ABSOLUTE LYMPH COUNT 0.9 /CUMM (1.2-3.4); ABSOLUTE MONOCYTE COUNT 0.4 /CUMM (0.10-0.60); EOSINOPHIL % 1.6 % (0-5); GRANULOCYTE % 75.5 % (42.2-75.2); MEAN CORPUSCULAR HGB 27.9 PG (27.0-31.0); MEAN CORPUSCULAR HGB CONC 32.5 G/DL (33.0-37.0); MEAN CORPUSCULAR VOLUME 85.9 FL (80.0-94.0); MEAN PLATELET VOLUME 7.7 FL (7.4-10.4); PLATELET COUNT 260 /CUMM (130-400); RED BLOOD CELL CT 3.37 /CUMM (4.70-6.10)
[2017-10-13 06:59] VITALS: BP 128/64
--- NOTE | 2017-10-13 07:06 | PN- Housestaff ---
Subjective Follow-up For: Osteomyelitis MRSA bacteremia SHIRA with history of renal transplant Hyperkalemia Tele-Events Since Last Visit: Off of tele Subjective: Patient was seen and examined at bedside. He is resting comfortably. He had no acute events overnight. 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 Overall physically, he states he is feeling well. His bowel movements are back to normal consistency, the pain in his foot is improving, currently 3/10 with minimal episodes of twinging pain. He is agreeable to go to physical therapy. Review of Systems Constitutional: Denies: chills, fever, malaise. EENTM: Reports: no symptoms. Cardiovascular: Reports: no symptoms. Respiratory: Reports: no symptoms. Gastrointestinal: Reports: no symptoms. Genitourinary: Reports: no symptoms. Musculoskeletal: Reports: see HPI. Skin: Reports: no symptoms. Objective Last 24 Hrs of Vital Signs/I&O Vital Signs Date Time Temp Pulse Resp B/P B/P Pulse O2 O2 Flow FiO2 Mean Ox Delivery Rate 10/12 2155 98.2 63 18 140/90 99 10/12 1442 98.6 78 18 132/64 94 Room Air 10/12 0932 62 110/56 10/12 0932 62 110/56 10/12 0728 98.4 62 18 110/56 94 Room Air Intake & Output 10/13 0800 10/13 0000 10/12 1600 Intake Total 120 200 600 Output Total 1400 50 600 Balance -1280 150 0 Intake, IV 20 Intake, Oral 100 200 600 Output, Urine 1400 50 600 Patient 214 lb Weight Physical Exam General Appearance: Alert, Oriented X3, Cooperative, No Acute Distress Skin Temp/Moisture Exam: Warm/Dry Sepsis Skin Exam (color): Normal for Ethnicity Cardiovascular: Regular Rate, Normal S1, Normal S2, No Murmurs Lungs: Clear to Auscultation, Normal Air Movement Abdomen: Normal Bowel Sounds, Soft, No Tenderness Neurological: Normal Speech, Normal Tone, diminished sensation of the feet bilaterally Extremities: R foot with wound vac in place Current Medications: Current Medications Sig/Ira Start time Last Medication Dose Route Stop Time Status Admin Acetaminophen 650 MG Q6P PRN 09/22 1600 AC 10/12 PO 0143 Amiodarone HCl 100 MG DAILY 09/23 1000 AC 10/12 PO 0932 Apixaban 5 MG BID 10/06 1500 AC 10/12 PO 2232 Benzocaine/Menthol 1 CELIA Q2P PRN 09/30 0100 AC 09/30 PO 0118 Calcium/Vitamin D 500 MG DAILY 09/22 1929 AC 10/12 PO 0931 Daptomycin 500 MG Q24H 10/09 2100 AC 10/12 Sodium Chloride 50 ML IV 2200 Epoetin Onofre 20,000 U ONCE A WEEK 09/29 1030 10/06 AL 1020 Escitalopram Oxalate 10 MG DAILY 09/23 1000 AC 10/12 PO 0931 Hydroxychloroquine 200 MG DAILY 10/12 1518 AC 10/12 Sulfate PO 1717 Insulin Aspart 8 UNITS .STK-MED ONE 10/12 0811 DC AL 10/12 08 Insulin Aspart 0 TIDAC/HS 10/06 1700 AC 10/12 AL 1725 Insulin Detemir 33 UNITS 8AM 10/12 0806 AC 10/12 AL 0931 Insulin Detemir 30 UNITS 8AM 10/11 0830 ND 10/11 AL 0834 Lidocaine/Diphenhydr/ 5 ML Q4-6 PRN PRN 09/30 1530 AC 10/03 Alum/Mg/Simeth PO 2130 Metoprolol Succinate 12.5 MG DAILY 09/23 1000 AC 10/12 PO 0932 Mycophenolate Mofetil 500 MG TID 10/09 2200 AC 10/12 PO 2233 Omeprazole 20 MG DAILY AC 10/03 1334 AC 10/13 PO 0525 Tacrolimus 2 MG 0600 10/10 0600 10/13 PO 0526 Tacrolimus 1.5 MG 10/10 0600 10/13 PO 0526 Last 24 Hrs of Lab/Joel Results Last 24 Hrs of Labs/Mics: Laboratory Tests 10/13/17 0533: Anion Gap 12, Estimated GFR 43 L, BUN/Creatinine Ratio 28.8 H, Magnesium 2.1, CBC w Diff NO MAN DIFF REQ, RBC 3.37 L, MCV 85.9, MCH 27.9, MCHC 32.5 L, RDW 16.0 H, MPV 7.7, Gran % 75.5 H, Lymphocytes % 15.5 L, Monocytes % 6.4, Eosinophils % 1.6, Basophils % 1.0, Absolute Granulocytes 4.6, Absolute Lymphocytes 0.9 L, Absolute Monocytes 0.4, Absolute Eosinophils 0.1, Absolute Basophils 0.1, Tacrolimus Pending Orders Fingersticks (last 24 hrs): [id number] Assessment/Plan Assessment: Patient is a 71-year-old male with an extensive past medical history significant for ESRD status post renal transplant on tacrolimus and CellCept, paroxysmal A. fib on Eliquis, HTN, HLD, CVA, DM admission to [facility] for osteomyelitis, status post amputation of right and left third great toe who presented with complaints of malaise, nausea, vomiting, diarrhea, poor appetite with recurrent osteomyelitis of his right foot. #MRSA bacteremia secondary to right foot osteomyelitis Prevascular surgery, patient will require BKA. Patient will follow-up as an outpatient with vascular surgery. Will be evaluated by cardiology for risk stratification for surgery. Creatinine kinase 190, ESR 38 -Continue daptomycin to complete a four-week course, end date 10/25 -Weekly CPK and ESR while on daptomycin -ID recommendations appreciated -Patient will require follow-up with vascular surgery as an outpatient for scheduling of BKA, patient was seen by wheel cutter Dr. Lujan yesterday who will follow-up with patient as an outpatient for necessary preoperative cardiac workup -Patient will be stable for discharge soon #SHIRA Daptomycin level decreasing. -Hyperkalemia is improving -Continue to monitor and follow-up nephrology recommendations, recommendations appreciated #DM Blood sugars better controlled within the last 24 hours - Levemir increased based on endocrine recommendations - endocrine recommendations appreciated #Arthritis Patient reported worsening pain of an stiffness of his hands bilaterally - continue with Plaquenil 200 mg daily #Chronic medical problems -Continue current medication regimen Diet: Diabetic diet, with potassium restriction DVT prophylaxis: Apixaban CODE STATUS: Full code Problem List: 1. Hyperkalemia 2. SHIRA (acute kidney injury) 3. Osteomyelitis of foot, right, acute Pain Ratin Pain Location: R foot Pain Goal: Pain 4 or less Pain Plan: pain pathway Tomorrow's Labs & Rationales: BEP
--- NOTE | 2017-10-13 08:55 | PN- Nephrology ---
Assessment/Plan Nephrology Assessment: 1. ESRD: s/p DD transplant; Cr a bit higher --> ? dry - will give trial volume expansion. Last TAC level lower but will recheck before increasing 2. Hyperkalemia: mild & stable 4. 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 endocarditis --> TESS neg veg; continue antibiotics per ID Suggestion: 1. IV NS 75 ml/hr 2. await repeat TAC level Subjective Subjective: Feeling well No SOB No vomiting but loose stool Objective Vital Signs and I&Os Vital Signs Date Time Temp Pulse Resp B/P B/P Pulse O2 O2 Flow FiO2 Mean Ox Delivery Rate 10/13 0659 98.0 72 18 128/64 97 Room Air 10/12 2155 98.2 63 18 140/90 99 10/12 1442 98.6 78 18 132/64 94 Room Air 10/12 0932 62 110/56 10/12 0932 62 110/56 Intake & Output 10/13 1600 10/13 0400 10/12 1600 10/12 0400 10/11 1600 10/11 0400 Intake Total 120 200 875 880 980 210 Output Total 1400 50 643 474 3761 550 Balance -1280 150 275 630 -345 -340 Intake, IV 20 175 60 90 Intake, Oral 100 200 700 820 980 120 Number 1 Bowel Movements Output, Urine 1400 50 755 433 9306 550 Patient 214 lb 212 lb 213 lb Weight Weight Bed scale Measurement Method Physical Exam General Appearance: well developed/nourished, no apparent distress, alert Head: atraumatic Ears, Nose, Throat: normal ENT inspection Neck: normal inspection, supple Respiratory: normal breath sounds, no respiratory distress, quiet respiration, lungs clear Cardiovascular: regular rate/rhythm Abdomen: soft, non-tender Extremities: no edema, R ft wound vac Neurologic/Psychiatric: awake, alert, oriented x 3 Skin: intact Lymphatic: no anterior cervical fortunato Current Medications: Current Medications Sig/Ira Start time Last Medication Dose Route Stop Time Status Admin Acetaminophen 650 MG Q6P PRN 09/22 1600 AC 10/12 PO 0143 Amiodarone HCl 100 MG DAILY 09/23 1000 AC 10/12 PO 0932 Apixaban 5 MG BID 10/06 1500 AC 10/12 PO 2232 Benzocaine/Menthol 1 CELIA Q2P PRN 09/30 0100 AC 09/30 PO 0118 Calcium/Vitamin D 500 MG DAILY 09/22 1929 AC 10/12 PO 0931 Daptomycin 500 MG Q24H 10/09 2100 AC 10/12 Sodium Chloride 50 ML IV 2200 Epoetin Onofre 20,000 U ONCE A WEEK 09/29 1030 AC 10/06 SC 1020 Escitalopram Oxalate 10 MG DAILY 09/23 1000 AC 10/12 PO 0931 Hydroxychloroquine 200 MG DAILY 10/12 1518 AC 10/12 Sulfate PO 1717 Insulin Aspart 0 TIDAC/HS 10/06 1700 AC 10/13 SC 0757 Insulin Detemir 33 UNITS 8AM 10/12 0806 AC 10/13 SC 0757 Lidocaine/Diphenhydr/ 5 ML Q4-6 PRN PRN 09/30 1530 AC 10/03 Alum/Mg/Simeth PO 2130 Metoprolol Succinate 12.5 MG DAILY 09/23 1000 AC 10/12 PO 0932 Mycophenolate Mofetil 500 MG TID 10/09 2200 AC 10/12 PO 2233 Omeprazole 20 MG DAILY AC 10/03 1334 AC 10/13 PO 0525 Tacrolimus 2 MG 10/10 06 AC 10/13 PO 0526 Tacrolimus 1.5 MG 10/10 0600 AC 10/13 PO 0526 Results Pertinent Lab Results: Laboratory Tests 10/13 10/12 0533 0607 Chemistry Sodium (137 - 145 mmol/L) 140 139 Potassium (3.5 - 5.1 mmol/L) 5.5 H 5.3 H Chloride (98 - 107 mmol/L) 104 103 Carbon Dioxide (22 - 30 mmol/L) 24 24 Anion Gap (5 - 16) 12 12 BUN (9 - 20 mg/dL) 46 H 42 H Creatinine (0.7 - 1.2 mg/dL) 1.6 H 1.5 H Estimated GFR (>60 ml/min) 43 L 46 L BUN/Creatinine Ratio (7 - 25 %) 28.8 H 28.0 H Magnesium (1.6 - 2.3 mg/dL) 2.1 Creatine Kinase (55 - 170 U/L) 190 H Hematology CBC w Diff NO MAN DIFF REQ WBC (4.8 - 10.8 /CUMM) 6.0 RBC (4.70 - 6.10 /CUMM) 3.37 L Hgb (14.0 - 18.0 G/DL) 9.4 L Hct (42 - 52 %) 29.0 L MCV (80.0 - 94.0 FL) 85.9 MCH (27.0 - 31.0 PG) 27.9 MCHC (33.0 - 37.0 G/DL) 32.5 L RDW (11.5 - 14.5 %) 16.0 H Plt Count (130 - 400 /CUMM) 260 MPV (7.4 - 10.4 FL) 7.7 Gran % (42.2 - 75.2 %) 75.5 H Lymphocytes % (20.5 - 51.1 %) 15.5 L Monocytes % (1.7 - 9.3 %) 6.4 Eosinophils % (0 - 5 %) 1.6 Basophils % (0.0 - 2.0 %) 1.0 Absolute Granulocytes (1.4 - 6.5 /CUMM) 4.6 Absolute Lymphocytes (1.2 - 3.4 /CUMM) 0.9 L Absolute Monocytes (0.10 - 0.60 /CUMM) 0.4 Absolute Eosinophils (0.0 - 0.7 /CUMM) 0.1 Absolute Basophils (0.0 - 0.2 /CUMM) 0.1 ESR Westergren (0 - 10 MM) 38 H Toxicology Tacrolimus (() mcg/L) Pending 3.4 L 10/11 0630 Chemistry Sodium (137 - 145 mmol/L) 140 Potassium (3.5 - 5.1 mmol/L) 5.4 H Chloride (98 - 107 mmol/L) 103 Carbon Dioxide (22 - 30 mmol/L) 27 Anion Gap (5 - 16) 10 BUN (9 - 20 mg/dL) 39 H Creatinine (0.7 - 1.2 mg/dL) 1.5 H Estimated GFR (>60 ml/min) 46 L BUN/Creatinine Ratio (7 - 25 %) 26.0 H Glucose (65 - 99 mg/dL) 210 H Magnesium (1.6 - 2.3 mg/dL) 2.1 Hematology CBC w Diff NO MAN DIFF REQ WBC (4.8 - 10.8 /CUMM) 5.7 RBC (4.70 - 6.10 /CUMM) 3.38 L Hgb (14.0 - 18.0 G/DL) 9.5 L Hct (42 - 52 %) 29.1 L MCV (80.0 - 94.0 FL) 85.9 MCH (27.0 - 31.0 PG) 27.9 MCHC (33.0 - 37.0 G/DL) 32.5 L RDW (11.5 - 14.5 %) 15.1 H Plt Count (130 - 400 /CUMM) 242 MPV (7.4 - 10.4 FL) 8.1 Gran % (42.2 - 75.2 %) 68.4 Lymphocytes % (20.5 - 51.1 %) 20.4 L Monocytes % (1.7 - 9.3 %) 8.5 Eosinophils % (0 - 5 %) 1.6 Basophils % (0.0 - 2.0 %) 1.1 Absolute Granulocytes (1.4 - 6.5 /CUMM) 3.9 Absolute Lymphocytes (1.2 - 3.4 /CUMM) 1.2 Absolute Monocytes (0.10 - 0.60 /CUMM) 0.5 Absolute Eosinophils (0.0 - 0.7 /CUMM) 0.1 Absolute Basophils (0.0 - 0.2 /CUMM) 0.1
--- NOTE | 2017-10-13 10:01 | PN- Diabetes ---
Assessment/Plan Diabetes Assessment: Patient is a 71-year-old male with a PMH significant for ESRD status post renal transplant on tacrolimus and CellCept, paroxysmal atrial fibrillation on Eliquis , HTN, HLD, CVA, DM type 2, with recent admission to [facility] for osteomyelitis, status post amputation of the toes, was admitted for chronic right foot infection. He underwent angiogram, angioplasty of right peroneal artery, right foot procedure and wound vac placement on 09/27/2017. He had TESS done on 09/28/2017. Currently he is on Levemir 33 units daily, Novolog coverage before meals was adjusted on 10/11. In addition, he is on Novolog coverage at bedtime. His FSGs were 185, 82 and 169. Plan: 1.continue Levemir 33 units daily; 2. continue Novolog coverage before meals and Novolog coverage at bedtime; 3. monitor FSGs. will follow. Plan: details see above. Subjective Subjective: He has no special complaints this morning. Objective Last 24 Hrs of Vital Signs/I&O Vital Signs Date Time Temp Pulse Resp B/P B/P Pulse O2 O2 Flow FiO2 Mean Ox Delivery Rate 10/13 0925 80.0 16 132/58 10/13 0921 80 16 132/58 10/13 0659 98.0 72 18 128/64 97 Room Air 10/12 2155 98.2 63 18 140/90 99 10/12 1442 98.6 78 18 132/64 94 Room Air Intake & Output 10/13 1600 10/13 0800 10/13 0000 Intake Total 120 200 Output Total 1400 50 Balance -1280 150 Intake, IV 20 Intake, Oral 100 200 Output, Urine 1400 50 Patient 214 lb Weight Findings Pertinent Lab/Joel Results: Laboratory Tests 10/13 0533 Chemistry Sodium (137 - 145 mmol/L) 140 Potassium (3.5 - 5.1 mmol/L) 5.5 H Chloride (98 - 107 mmol/L) 104 Carbon Dioxide (22 - 30 mmol/L) 24 Anion Gap (5 - 16) 12 BUN (9 - 20 mg/dL) 46 H Creatinine (0.7 - 1.2 mg/dL) 1.6 H Estimated GFR (>60 ml/min) 43 L BUN/Creatinine Ratio (7 - 25 %) 28.8 H Magnesium (1.6 - 2.3 mg/dL) 2.1 Hematology CBC w Diff NO MAN DIFF REQ WBC (4.8 - 10.8 /CUMM) 6.0 RBC (4.70 - 6.10 /CUMM) 3.37 L Hgb (14.0 - 18.0 G/DL) 9.4 L Hct (42 - 52 %) 29.0 L MCV (80.0 - 94.0 FL) 85.9 MCH (27.0 - 31.0 PG) 27.9 MCHC (33.0 - 37.0 G/DL) 32.5 L RDW (11.5 - 14.5 %) 16.0 H Plt Count (130 - 400 /CUMM) 260 MPV (7.4 - 10.4 FL) 7.7 Gran % (42.2 - 75.2 %) 75.5 H Lymphocytes % (20.5 - 51.1 %) 15.5 L Monocytes % (1.7 - 9.3 %) 6.4 Eosinophils % (0 - 5 %) 1.6 Basophils % (0.0 - 2.0 %) 1.0 Absolute Granulocytes (1.4 - 6.5 /CUMM) 4.6 Absolute Lymphocytes (1.2 - 3.4 /CUMM) 0.9 L Absolute Monocytes (0.10 - 0.60 /CUMM) 0.4 Absolute Eosinophils (0.0 - 0.7 /CUMM) 0.1 Absolute Basophils (0.0 - 0.2 /CUMM) 0.1 Toxicology Tacrolimus Pending
--- NOTE | 2017-10-13 13:53 | PN- Pulmonary ---
Subjective HPI/Critical Care Issues: Events noted Creat higher today On ivf TAc level pending from today Objective Current Medications: Current Medications Sig/Ira Start time Last Medication Dose Route Stop Time Status Admin Acetaminophen 650 MG Q6P PRN 09/22 1600 AC 10/12 PO 0143 Alprazolam 0.5 MG ONCE ONE 10/13 1315 DC 10/13 PO 10/13 1316 1319 Amiodarone HCl 100 MG DAILY 09/23 1000 AC 10/13 PO 0925 Apixaban 5 MG BID 10/06 1500 AC 10/13 PO 0923 Benzocaine/Menthol 1 CELIA Q2P PRN 09/30 0100 AC 09/30 PO 0118 Calcium/Vitamin D 500 MG DAILY 09/22 1929 AC 10/13 PO 0924 Daptomycin 500 MG Q24H 10/09 2100 AC 10/12 Sodium Chloride 50 ML IV 2200 Epoetin Onofre 20,000 U ONCE A WEEK 09/29 1030 AC 10/13 DC 1022 Escitalopram Oxalate 10 MG DAILY 09/23 1000 AC 10/13 PO 0924 Hydroxychloroquine 200 MG DAILY 10/12 1518 AC 10/13 Sulfate PO 0924 Insulin Aspart 0 TIDAC/HS 10/06 1700 AC 10/13 DC 1153 Insulin Detemir 33 UNITS 8AM 10/12 0806 AC 10/13 SC 0757 Lidocaine/Diphenhydr/ 5 ML Q4-6 PRN PRN 09/30 1530 AC 10/03 Alum/Mg/Simeth PO 2130 Metoprolol Succinate 12.5 MG DAILY 09/23 1000 AC 10/13 PO 0921 Mycophenolate Mofetil 500 MG TID 10/09 2200 AC 10/13 PO 0924 Omeprazole 20 MG DAILY AC 10/03 1334 AC 10/13 PO 0525 Sodium Chloride 1,000 ML Q13H 10/13 0900 AC 10/13 IV 1024 Tacrolimus 2 MG 10/10 06 AC 10/13 PO 0526 Tacrolimus 1.5 MG 10/10 06 AC 10/13 PO 0526 Vital Signs & I&O Last 24 Hrs of Vitals and I&O: Vital Signs Date Time Temp Pulse Resp B/P B/P Pulse O2 O2 Flow FiO2 Mean Ox Delivery Rate 10/13 924 80.0 16 132/58 10/13 920 80 16 132/58 04/12 0659 98.0 72 18 128/64 97 Room Air 10/12 2155 98.2 63 18 140/90 99 10/12 1442 98.6 78 18 132/64 94 Room Air Intake & Output 10/13 1600 10/13 0800 10/13 0000 Intake Total 120 200 Output Total 1400 50 Balance -1280 150 Intake, IV 20 Intake, Oral 100 200 Output, Urine 1400 50 Patient 214 lb Weight Laboratory Tests 10/13 10/12 0533 0607 Chemistry Sodium (137 - 145 mmol/L) 140 139 Potassium (3.5 - 5.1 mmol/L) 5.5 H 5.3 H Chloride (98 - 107 mmol/L) 104 103 Carbon Dioxide (22 - 30 mmol/L) 24 24 Anion Gap (5 - 16) 12 12 BUN (9 - 20 mg/dL) 46 H 42 H Creatinine (0.7 - 1.2 mg/dL) 1.6 H 1.5 H Estimated GFR (>60 ml/min) 43 L 46 L BUN/Creatinine Ratio (7 - 25 %) 28.8 H 28.0 H Magnesium (1.6 - 2.3 mg/dL) 2.1 Creatine Kinase (55 - 170 U/L) 190 H Hematology CBC w Diff NO MAN DIFF REQ WBC (4.8 - 10.8 /CUMM) 6.0 RBC (4.70 - 6.10 /CUMM) 3.37 L Hgb (14.0 - 18.0 G/DL) 9.4 L Hct (42 - 52 %) 29.0 L MCV (80.0 - 94.0 FL) 85.9 MCH (27.0 - 31.0 PG) 27.9 MCHC (33.0 - 37.0 G/DL) 32.5 L RDW (11.5 - 14.5 %) 16.0 H Plt Count (130 - 400 /CUMM) 260 MPV (7.4 - 10.4 FL) 7.7 Gran % (42.2 - 75.2 %) 75.5 H Lymphocytes % (20.5 - 51.1 %) 15.5 L Monocytes % (1.7 - 9.3 %) 6.4 Eosinophils % (0 - 5 %) 1.6 Basophils % (0.0 - 2.0 %) 1.0 Absolute Granulocytes (1.4 - 6.5 /CUMM) 4.6 Absolute Lymphocytes (1.2 - 3.4 /CUMM) 0.9 L Absolute Monocytes (0.10 - 0.60 /CUMM) 0.4 Absolute Eosinophils (0.0 - 0.7 /CUMM) 0.1 Absolute Basophils (0.0 - 0.2 /CUMM) 0.1 ESR Westergren (0 - 10 MM) 38 H Toxicology Tacrolimus (() mcg/L) Pending 3.4 L Impression/Plan Impression/Plan Impression/Plan: Impression/Plan: Head: atraumatic, normal appearance Eyes:Bilateral: normal appearance, PERRL, EOMI. Ears, Nose, Throat: normal pharynx, normal ENT inspection, hearing grossly normal Neck: normal inspection, supple, full range of motion, no midline tenderness Respiratory: normal breath sounds, chest non-tender, no respiratory distress, quiet respiration, lungs clear Cardiovascular: normal peripheral pulses, irregularly irregular, norml femoral pulses equa Peripheral Pulses: 4+ carotid (R), 4+ carotid (L) Gastrointestinal: normal bowel sounds, soft, non-tender, no organomegaly Back: normal inspection, normal range of motion, no vertebral tenderness Extremities: no edema, pelvis stable,s/p debridement and in dressing with wound vac in place Neurologic/Psych: normal Reflexes:2+: bicep (R), bicep (L). Lymphatic: no anterior cervical adenavf intact IMPRESSION This is a gentleman with s/p renal transplant with infected toe with osteo s/p surg * ON rx for - Infected foot with fever on admission MRSA sepsis- in a pt who is immunosupp (recent toe amputation with osteo, s/p complete debridement of osteo with toe amputation and wound closure on 09/09/17) now - MRSA infection and resolving sepsis. s/p angioplasty of peroneal artery and wound redebridement of the foot. PT now has a wound vac, and on dapto, and would need quality assurance nurse abx. No sig endocarditis noted in junior. Poor wound healing and ongoing eval for further plan if he does not heal may need bka * Resolved Transient neutopenia and anemia - was on neupogen / cmv viral load neg, now his mycophenolate has been reduce to 500 bid and pt back on his original tacrolimus dose (3.5 total)- levels a little low no * Resolved odynophagia with endoscopy essentially unremarkable except for atrophic gastritis annd prob gastropersis * Resolving Diarrhea has improved * REsolved delirium without Sig neuro deficit * MRI showing very small punctate lesions prob ateromatous small emboli, on anticoag, and statin * PT with Pafib in Sinus and sig atheromatous aorta, small pfo, - on eloquis * Prolonged qtc, previous low mag need to continue to monitor * REsolving SHIRA with CKD s/p renal transplant, creat now up to 1.6 on ivf ( recent contrast on admission 09/22) * DM insulin requiring endo onboard * PVD, previous history of stoke, and previous toe amputation, now angioplasty * Previous secondary hyperparathyroid. Sig autonomic dysfunction was on fludocortisone * Pafib on eliquis (in sinus on amiodarone) (being dosed for renal function) now held on heparin * Depression and anxiety * Peripheral neuropathy * Resolved Mild ekg changes with slight elevated troponin stable REC * IVG * Await tac level * COnt abx / ID note appretiated * Cont current dose of tacrolimus, check levels again daily * mycophenolate 500 500 tid for now (Discussed with Dr. Gauthier his transplant nephro before) * Tylenol for pain and if his pain is severe can use tramadol prn (pt did get confused before) * IF pain in his hands are still worse in a day or two then can start plaquanil 200 mg qd * cont anticoag * Vascular note reviewed * Daily tacrolimus level and will adjust dose subsequently * ID and Podiatry, vascular, Cardio,Endo, GI and renal following * EKG monitoring per cardio, recent work up no active ischemia and pt is stable for surg if he needs it, cardio is following and may consider a stress test to clear for surg if he needs it in the next few weeks pending bed search * Cont metoprolol, statin, amio, antidepressant lexapro * Keep sugars less than 150 * Once ambulatory start his home dose of fludrocortizone k to dc soon in am if all issues are stable
[2017-10-13] MEDS ORDERED: CUBICIN500 MG IV (14:14)
[2017-10-13 14:21] VITALS: BP 136/60
--- NOTE | 2017-10-13 15:11 | PN- Infect Dx ---
Subjective Subjective: Afebrile. He feels well with minimal discomfort in the right foot Objective Last 24 Hrs of Vital Signs/I&O Vital Signs Date Time Temp Pulse Resp B/P B/P Pulse O2 O2 Flow FiO2 Mean Ox Delivery Rate 10/13 1421 98.4 66 18 136/60 96 Room Air 10/13 0925 80.0 16 132/58 10/13 0921 80 16 132/58 10/13 0659 98.0 72 18 128/64 97 Room Air 10/12 2155 98.2 63 18 140/90 99 Intake & Output 10/13 1600 10/13 0800 10/13 0000 Intake Total 120 200 Output Total 1400 50 Balance -1280 150 Intake, IV 20 Intake, Oral 100 200 Output, Urine 1400 50 Patient 214 lb Weight Physical Exam Other Physical Findings: He appears comfortable in no acute distress Chest Pro-Line in the right upper chest with no inflammation at the site Extremities right foot dressing intact, with wound VAC in place Results Last 24 Hours of Lab Results: Laboratory Tests 10/13 0533 Chemistry Sodium (137 - 145 mmol/L) 140 Potassium (3.5 - 5.1 mmol/L) 5.5 H Chloride (98 - 107 mmol/L) 104 Carbon Dioxide (22 - 30 mmol/L) 24 Anion Gap (5 - 16) 12 BUN (9 - 20 mg/dL) 46 H Creatinine (0.7 - 1.2 mg/dL) 1.6 H Estimated GFR (>60 ml/min) 43 L BUN/Creatinine Ratio (7 - 25 %) 28.8 H Magnesium (1.6 - 2.3 mg/dL) 2.1 Hematology CBC w Diff NO MAN DIFF REQ WBC (4.8 - 10.8 /CUMM) 6.0 RBC (4.70 - 6.10 /CUMM) 3.37 L Hgb (14.0 - 18.0 G/DL) 9.4 L Hct (42 - 52 %) 29.0 L MCV (80.0 - 94.0 FL) 85.9 MCH (27.0 - 31.0 PG) 27.9 MCHC (33.0 - 37.0 G/DL) 32.5 L RDW (11.5 - 14.5 %) 16.0 H Plt Count (130 - 400 /CUMM) 260 MPV (7.4 - 10.4 FL) 7.7 Gran % (42.2 - 75.2 %) 75.5 H Lymphocytes % (20.5 - 51.1 %) 15.5 L Monocytes % (1.7 - 9.3 %) 6.4 Eosinophils % (0 - 5 %) 1.6 Basophils % (0.0 - 2.0 %) 1.0 Absolute Granulocytes (1.4 - 6.5 /CUMM) 4.6 Absolute Lymphocytes (1.2 - 3.4 /CUMM) 0.9 L Absolute Monocytes (0.10 - 0.60 /CUMM) 0.4 Absolute Eosinophils (0.0 - 0.7 /CUMM) 0.1 Absolute Basophils (0.0 - 0.2 /CUMM) 0.1 Toxicology Tacrolimus Pending Last 24 Hours of Joel Results: No new cultures Assessment/Plan ID Impression: Stable, with temperatures and white blood cell count remaining normal, on Daptomycin, Day 21 of treatment for MRSA sepsis/osteomyelitis of the right foot status post revisional partial first ray resection, placement of a wound VAC and right peroneal artery angioplasty 16 days ago. His ESR is decreasing, suggesting a response to the antibiotics. His CPK is mildly elevated, likely secondary to the Daptomycin, and this will need to be followed closely. Vascular surgery reevaluation noted and appreciated, with plans for a probable BKA at some point in the near future. Suggestion: 1. Continue Daptomycin to complete a 4 week course of Daptomycin from his most recent debridement (until October 25) 2. Continue weekly ESR and CPK while on Daptomycin
[2017-10-13 22:14] VITALS: BP 126/80
[2017-10-14 07:00] VITALS: BP 140/70
--- NOTE | 2017-10-14 08:18 | PN- Housestaff ---
Subjective Follow-up For: Osteo Subjective: No overnight events. Patient was transferred from telemetry last night. He feels well this morning. No pain. Last bowel movement was 2 days ago. He is complaining that he was served a raw Dominican muffin. Review of Systems Constitutional: Reports: no symptoms. EENTM: Reports: no symptoms. Cardiovascular: Reports: no symptoms. Respiratory: Reports: no symptoms. Gastrointestinal: Reports: no symptoms. Genitourinary: Reports: no symptoms. Musculoskeletal: Reports: no symptoms. Skin: Reports: no symptoms. Neurological/Psychological: Reports: no symptoms. Hematologic/Endocrine: Reports: no symptoms. Immunologic/Allergic: Reports: no symptoms. Objective Last 24 Hrs of Vital Signs/I&O Vital Signs Date Time Temp Pulse Resp B/P B/P Pulse O2 O2 Flow FiO2 Mean Ox Delivery Rate 10/14 0807 90 140/80 10/14 0806 90 140/80 10/14 0700 96.6 60 20 140/70 98 Room Air 10/13 2214 97.9 59 20 126/80 96 Room Air 10/13 1421 98.4 66 18 136/60 96 Room Air 10/13 0925 80.0 16 132/58 10/13 0921 80 16 132/58 Intake & Output 10/14 1600 10/14 0800 10/14 0000 Intake Total 200 Output Total 800 350 Balance -800 -150 Intake, Oral 200 Output, Urine 800 350 Physical Exam General Appearance: Alert, Oriented X3, Cooperative, No Acute Distress Cardiovascular: Regular Rate, Normal S1, Normal S2 Lungs: Clear to Auscultation Abdomen: Normal Bowel Sounds, Soft, No Tenderness Extremities: deferred Current Medications: Current Medications Sig/Ira Start time Last Medication Dose Route Stop Time Status Admin Acetaminophen 650 MG .STK-MED ONE 10/14 2251 DC PO 10/13 225 Acetaminophen 650 MG Q6P PRN 09/22 1600 AC 10/13 PO 2256 Alprazolam 0.5 MG ONCE ONE 10/13 1315 DC 10/13 PO 10/13 1316 1319 Amiodarone HCl 100 MG DAILY 09/23 1000 AC 10/14 PO 0807 Apixaban 5 MG BID 10/06 1500 AC 10/14 PO 0808 Benzocaine/Menthol 1 CELIA Q2P PRN 09/30 0100 AC 09/30 PO 0118 Calcium/Vitamin D 500 MG DAILY 09/22 1929 AC 10/14 PO 0806 Daptomycin 500 MG Q24H 10/09 2100 AC 10/13 Sodium Chloride 50 ML IV 202 Epoetin Onofre 20,000 U ONCE A WEEK 09/29 1030 AC 10/13 SC 1022 Escitalopram Oxalate 10 MG DAILY 09/23 1000 AC 10/14 PO 0807 Hydroxychloroquine 200 MG DAILY 10/12 1518 AC 10/14 Sulfate PO 0806 Insulin Aspart 0 TIDAC/HS 10/06 1700 AC 10/14 SC 0811 Insulin Detemir 33 UNITS 8AM 10/12 0806 AC 10/13 SC 0757 Lidocaine/Diphenhydr/ 5 ML Q4-6 PRN PRN 09/30 1530 AC 10/03 Alum/Mg/Simeth PO 2130 Metoprolol Succinate 12.5 MG DAILY 09/23 1000 AC 10/14 PO 0806 Mycophenolate Mofetil 500 MG TID 10/09 2200 AC 10/13 PO 2109 Omeprazole 20 MG DAILY AC 10/03 1334 AC 10/14 PO 0601 Sodium Chloride 1,000 ML Q13H 10/13 0900 AC 10/13 IV 2256 Tacrolimus 2 MG 0600 10/10 0600 AC 10/14 PO 0555 Tacrolimus 1.5 MG 00 10/10 0600 AC 10/14 PO 0600 Assessment/Plan Assessment: Patient is a 71-year-old male with an extensive past medical history significant for ESRD status post renal transplant on tacrolimus and CellCept, paroxysmal A. fib on Eliquis, HTN, HLD, CVA, DM admission to [place] for osteomyelitis, status post amputation of right and left third great toe who presented with complaints of malaise, nausea, vomiting, diarrhea, poor appetite with recurrent osteomyelitis of his right foot. He is transferred from telemetry on ' t 18. Problem list: 1. MRSA bacteremia secondary to right foot osteomyelitis 2. Acute kidney injury #MRSA bacteremia secondary to right foot osteomyelitis: Per vascular surgery, patient will require BKA. Patient will follow-up as an outpatient with vascular surgery. Will be evaluated by cardiology for risk stratification for surgery. Creatinine kinase 190, ESR 38 -Continue daptomycin to complete a four-week course, end date 10/25 -Weekly CPK and ESR while on daptomycin -ID recommendations appreciated -Patient will require follow-up with vascular surgery as an outpatient for scheduling of BKA, patient was seen by spark plug tester Dr. Lujan yesterday who will follow-up with patient as an outpatient for necessary preoperative cardiac workup -Patient will be stable for discharge soon #SHIRA: Daptomycin level decreasing. -Continue to monitor and follow-up nephrology recommendations, recommendations appreciated #Chronic medical problem: -Appreciate endocrinology recommendations - continue with Plaquenil 200 mg daily -Continue other home medications DVT prophylaxis with apixiban Consistent carbohydrate 1 diet with potassium restriction Full code Problem List: 1. Osteomyelitis Pain Ratin Pain Location: no Pain Goal: Remain pain free Pain Plan: se ea/p Tomorrow's Labs & Rationales: no
--- NOTE | 2017-10-14 09:08 | PN- Diabetes ---
Assessment/Plan Diabetes Assessment: Patient is a 71-year-old male with a PMH significant for ESRD status post renal transplant on tacrolimus and CellCept, paroxysmal atrial fibrillation on Eliquis , HTN, HLD, CVA, DM type 2, with recent admission to [facility] for osteomyelitis, status post amputation of the toes, was admitted for chronic right foot infection. He underwent angiogram, angioplasty of right peroneal artery, right foot procedure and wound vac placement on 09/27/2017. He had TESS done on 09/28/2017. Currently he is on Levemir 33 units daily, Novolog coverage before meals was adjusted on 10/11. In addition, he is on Novolog coverage at bedtime. His FSGs were 169, 148, 157, 85 and 139. Plan: 1.continue Levemir 33 units daily; 2. continue Novolog coverage before meals and Novolog coverage at bedtime; 3. monitor FSGs. 4. snack at bedtime if his FSG is < 120; discussed with patient and nurse. will follow. Subjective Subjective: He has no special complaints this morning. Objective Last 24 Hrs of Vital Signs/I&O Vital Signs Date Time Temp Pulse Resp B/P B/P Pulse O2 O2 Flow FiO2 Mean Ox Delivery Rate 10/14 0807 90 140/80 10/14 0806 90 140/80 10/14 0700 96.6 60 20 140/70 98 Room Air 10/13 2214 97.9 59 20 126/80 96 Room Air 10/13 1421 98.4 66 18 136/60 96 Room Air 10/13 0925 80.0 16 132/58 10/13 0921 80 16 132/58 Intake & Output 10/14 1600 10/14 0800 10/14 0000 Intake Total 899 200 Output Total 900 350 Balance -1 -150 Intake, IV 600 Intake, Oral 299 200 Output, Urine 900 350 Findings Pertinent Lab/Joel Results: Laboratory Tests 10/14 0615 Chemistry Sodium Pending Potassium Pending Chloride Pending Carbon Dioxide Pending Anion Gap Pending BUN Pending Creatinine Pending BUN/Creatinine Ratio Pending Calcium Pending Phosphorus Pending Albumin Pending Toxicology Tacrolimus Pending
--- NOTE | 2017-10-14 11:22 | PN- Nephrology ---
Assessment/Plan Nephrology Assessment: 1. ESRD: s/p DD transplant; Cr back to baseline but TAC level remians low --> increase dose 2. Hyperkalemia: mild & stable 4. 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 d/c IV NS 2. increase TAC 4 mg per day OK for discharge from renal perspective - would need repeat renal function, TAC level, & f/u [place] transplant Subjective Subjective: No complaints No SOb - eating Objective Vital Signs and I&Os Vital Signs Date Time Temp Pulse Resp B/P B/P Pulse O2 O2 Flow FiO2 Mean Ox Delivery Rate 10/14 0807 90 140/80 10/14 0806 90 140/80 10/14 0700 96.6 60 20 140/70 98 Room Air 10/13 2214 97.9 59 20 126/80 96 Room Air 10/13 1421 98.4 66 18 136/60 96 Room Air Intake & Output 10/14 1600 10/14 0400 10/13 1600 10/13 0400 10/12 1600 10/12 0400 Intake Total 899 200 870 200 875 880 Output Total 453 641 0705 50 600 250 Balance -1 -150 -1330 150 275 630 Intake, IV 600 370 175 60 Intake, Oral 299 200 500 200 700 820 Number 0 1 Bowel Movements Output, Urine 749 595 1919 50 600 250 Patient 214 lb 212 lb Weight Weight Bed scale Measurement Method Physical Exam General Appearance: well developed/nourished, no apparent distress Head: atraumatic, normal appearance Ears, Nose, Throat: normal ENT inspection Neck: normal inspection Respiratory: no respiratory distress, quiet respiration, lungs clear Cardiovascular: regular rate/rhythm Abdomen: soft, non-tender, no organomegaly Back: normal inspection Extremities: no edema, R ft wound vac Neurologic/Psychiatric: awake, alert, oriented x 3 Skin: intact, normal color Lymphatic: no anterior cervical fortunato Current Medications: Current Medications Sig/Ira Start time Last Medication Dose Route Stop Time Status Admin Acetaminophen 650 MG .STK-MED ONE 10/14 2251 DC PO 10/13 2252 Acetaminophen 650 MG Q6P PRN 09/22 1600 AC 10/13 PO 225 Alprazolam 0.5 MG ONCE ONE 10/13 1315 DC 10/13 PO 10/13 1316 1319 Amiodarone HCl 100 MG DAILY 09/23 1000 AC 10/14 PO 0807 Apixaban 5 MG BID 10/06 1500 AC 10/14 PO 0808 Benzocaine/Menthol 1 CELIA Q2P PRN 09/30 0100 AC 09/30 PO 0118 Calcium/Vitamin D 500 MG DAILY 09/22 1929 AC 10/14 PO 0806 Daptomycin 500 MG Q24H 10/09 2100 AC 10/13 Sodium Chloride 50 ML IV 202 Epoetin Onofre 20,000 U ONCE A WEEK 09/29 1030 AC 10/13 TN 1022 Escitalopram Oxalate 10 MG DAILY 09/23 1000 AC 10/14 PO 0807 Hydroxychloroquine 200 MG DAILY 10/12 1518 AC 10/14 Sulfate PO 0806 Insulin Aspart 0 TIDAC/HS 10/06 1700 AC 10/14 SC 0811 Insulin Detemir 33 UNITS 8AM 10/12 0806 AC 10/13 SC 0757 Lidocaine/Diphenhydr/ 5 ML Q4-6 PRN PRN 09/30 1530 AC 10/03 Alum/Mg/Simeth PO 2130 Metoprolol Succinate 12.5 MG DAILY 09/23 1000 AC 10/14 PO 0806 Mycophenolate Mofetil 500 MG TID 10/09 2200 AC 10/14 PO 0819 Omeprazole 20 MG DAILY AC 10/03 1334 AC 10/14 PO 0601 Sodium Chloride 1,000 ML Q13H 10/13 0900 AC 10/13 IV 2256 Tacrolimus 2 MG 0600 10/10 0600 AC 10/14 PO 0555 Tacrolimus 1.5 MG 0610/10 0600 AC 10/14 PO 0600 Results Pertinent Lab Results: Laboratory Tests 10/14 10/13 10/12 0615 0533 0607 Chemistry Sodium (137 - 145 mmol/L) 141 140 139 Potassium (3.5 - 5.1 mmol/L) 5.3 H 5.5 H 5.3 H Chloride (98 - 107 mmol/L) 106 104 103 Carbon Dioxide (22 - 30 mmol/L) 23 24 24 Anion Gap (5 - 16) 12 12 12 BUN (9 - 20 mg/dL) 44 H 46 H 42 H Creatinine (0.7 - 1.2 mg/dL) 1.5 H 1.6 H 1.5 H Estimated GFR (>60 ml/min) 46 L 43 L 46 L BUN/Creatinine Ratio (7 - 25 %) 29.3 H 28.8 H 28.0 H Calcium (8.4 - 10.2 mg/dL) 7.3 L Phosphorus (2.5 - 4.5 mg/dL) 4.8 H Magnesium (1.6 - 2.3 mg/dL) 2.1 Creatine Kinase (55 - 170 U/L) 190 H Albumin (3.5 - 5.0 g/dL) 3.1 L Hematology CBC w Diff NO MAN DIFF REQ WBC (4.8 - 10.8 /CUMM) 6.0 RBC (4.70 - 6.10 /CUMM) 3.37 L Hgb (14.0 - 18.0 G/DL) 9.4 L Hct (42 - 52 %) 29.0 L MCV (80.0 - 94.0 FL) 85.9 MCH (27.0 - 31.0 PG) 27.9 MCHC (33.0 - 37.0 G/DL) 32.5 L RDW (11.5 - 14.5 %) 16.0 H Plt Count (130 - 400 /CUMM) 260 MPV (7.4 - 10.4 FL) 7.7 Gran % (42.2 - 75.2 %) 75.5 H Lymphocytes % (20.5 - 51.1 %) 15.5 L Monocytes % (1.7 - 9.3 %) 6.4 Eosinophils % (0 - 5 %) 1.6 Basophils % (0.0 - 2.0 %) 1.0 Absolute Granulocytes (1.4 - 6.5 /CUMM) 4.6 Absolute Lymphocytes (1.2 - 3.4 /CUMM) 0.9 L Absolute Monocytes (0.10 - 0.60 /CUMM) 0.4 Absolute Eosinophils (0.0 - 0.7 /CUMM) 0.1 Absolute Basophils (0.0 - 0.2 /CUMM) 0.1 ESR Westergren (0 - 10 MM) 38 H Toxicology Tacrolimus (() mcg/L) Pending 3.8 L 3.4 L
[2017-10-14 13:43] VITALS: BP 118/70
[2017-10-14 13:48] VITALS: BP 118/70
[2017-10-14] MEDS ORDERED: ENVARSUS XR4 MG PO (13:55)
== END 2017-10-14 17:33 | DRG 853 ==
LOC: ERH 05:48 → 1NO 13:25 → ERHI 13:25 → ENRESERV 14:02 → ENTRNSPT 15:24 → EDTRNSPT 15:33 → EDTRNSPTSTS 15:33 → 2NB 15:53 → CMPTRNSPT 16:08 → 1NO 19:43 → ENTRNSPT 09-27 16:22 → EDTRNSPTSTS 09-27 16:35 → EDTRNSPT 09-27 16:35 → CMPTRNSPT 09-27 17:17 → ENTRNSPT 10-13 19:53 → EDTRNSPT 10-13 19:54 → EDTRNSPTSTS 10-13 20:19 → CMPTRNSPT 10-13 21:15 → 2NA 10-13 21:54
PROVIDERS: Dermatology; Emergency Medicine; Internal Medicine; Internal Medicine Pulmonary Disease; Student in an Organized Health Care Education/Training Program
PROC: 0Y6M0Z9 Detachment at Right Foot, Partial 1st Ray, Open Approach (ICD-10-PCS; principal; 2017-09-22)
PROC: 0JBQ0ZZ Excision of Right Foot Subcutaneous Tissue and Fascia, Open Approach (ICD-10-PCS; 2017-09-22)
PROC: 047T3ZZ Dilation of Right Peroneal Artery, Percutaneous Approach (ICD-10-PCS; 2017-09-27)
PROC: 0Y6M0Z9 Detachment at Right Foot, Partial 1st Ray, Open Approach (ICD-10-PCS; 2017-09-27)
PROC: B41DZZZ Fluoroscopy of Aorta and Bilateral Lower Extremity Arteries (ICD-10-PCS; 2017-09-27)
PROC: 2W1SX6Z Compression of Right Foot using Pressure Dressing (ICD-10-PCS; 2017-09-27)
PROC: 047T3DZ Dilation of Right Peroneal Artery with Intraluminal Device, Percutaneous Approach (ICD-10-PCS; 2017-09-27)
PROC: 30233N1 Transfusion of Nonautologous Red Blood Cells into Peripheral Vein, Percutaneous Approach (ICD-10-PCS; 2017-10-01)
PROC: 0DB98ZX Excision of Duodenum, Via Natural or Artificial Opening Endoscopic, Diagnostic (ICD-10-PCS; 2017-10-06)
PROC: 0DB68ZX Excision of Stomach, Via Natural or Artificial Opening Endoscopic, Diagnostic (ICD-10-PCS; 2017-10-06)
PROC: 0DB58ZX Excision of Esophagus, Via Natural or Artificial Opening Endoscopic, Diagnostic (ICD-10-PCS; 2017-10-06)
PROC: 02HV33Z Insertion of Infusion Device into Superior Vena Cava, Percutaneous Approach (ICD-10-PCS; 2017-10-06)
PROC: B5181ZA Fluoroscopy of Superior Vena Cava using Low Osmolar Contrast, Guidance (ICD-10-PCS; 2017-10-06)
DX: A41.02 Sepsis due to Methicillin resistant Staphylococcus aureus (principal); I21.A1 Myocardial infarction type 2; N17.9 Acute kidney failure, unspecified; I66.3 Occlusion and stenosis of cerebellar arteries; D70.8 Other neutropenia; D70.9 Neutropenia, unspecified; N18.6 End stage renal disease; M86.171 Other acute osteomyelitis, right ankle and foot; Z94.0 Kidney transplant status; R44.2 Other hallucinations; I12.0 Hypertensive chronic kidney disease with stage 5 chronic kidney disease or end stage renal disease; E87.1 Hypo-osmolality and hyponatremia; E11.22 Type 2 diabetes mellitus with diabetic chronic kidney disease; E83.42 Hypomagnesemia; R13.10 Dysphagia, unspecified; E11.42 Type 2 diabetes mellitus with diabetic polyneuropathy; E83.51 Hypocalcemia; I48.0 Paroxysmal atrial fibrillation; Z79.01 Long term (current) use of anticoagulants; Z79.4 Long term (current) use of insulin; N18.3 Chronic kidney disease, stage 3 (moderate); I99.8 Other disorder of circulatory system; T81.89XD Other complications of procedures, not elsewhere classified, subsequent encounter; L08.9 Local infection of the skin and subcutaneous tissue, unspecified; I44.7 Left bundle-branch block, unspecified; D63.1 Anemia in chronic kidney disease; K21.0 Gastro-esophageal reflux disease with esophagitis; E87.5 Hyperkalemia; E11.65 Type 2 diabetes mellitus with hyperglycemia; Z89.422 Acquired absence of other left toe(s); Z86.73 Personal history of transient ischemic attack (TIA), and cerebral infarction without residual deficits; Z79.82 Long term (current) use of aspirin; E78.5 Hyperlipidemia, unspecified; E11.51 Type 2 diabetes mellitus with diabetic peripheral angiopathy without gangrene; F32.9 Major depressive disorder, single episode, unspecified; H40.9 Unspecified glaucoma; Z78.1 Physical restraint status; R19.7 Diarrhea, unspecified; F41.9 Anxiety disorder, unspecified; I25.10 Atherosclerotic heart disease of native coronary artery without angina pectoris; R41.0 Disorientation, unspecified; E11.69 Type 2 diabetes mellitus with other specified complication
CPT/HCPCS: 04007; 1NP; 2NAP; 70551; 87070; 87075; 87184; 87493; 36415; 36592; 73590-RT; 73620-RT; 74220; 77001; 82436; 83010; 86920; 87040; 87086; 87147; 87804; 87804-59; 88184; 88304; 88305; 88307; 88312; 93005; 93010; 93306; 93325; 93925; 96372; 96374; 97110-GO; 97116-GO; 97161-GP; 97530-GO; C1725; C1760; C1769; J0131; J0696; J0878; J0885-EC; J1442; J1630; J1642; J1644; J1815; J2001; J2405; J3370; J3490; J7042; J7060; J7503; J7517; P9016; Q9967

== ENCOUNTER 2017-11-17 20:15 | Inpatient (IN) | payer OTHER, MEDICARE ==
[~2017-11-17] VITALS: Ht 177.8 cm; Wt 85.0 kg
[~2017-11-17 20:15] MED LIST changes: +CELLCEPT500 M2 PO; +CUBICIN500 MG IV; +ENVARSUS XR4 MG PO; +FAMOTIDINE20 M1 PO; +OMEPRAZOLE20 M2 PO; +TACROLIMUS1 M1 PO
--- NOTE | 2017-11-17 22:44 | ED GENERAL ADULT ---
History of Present Illness General Chief Complaint: Nausea, Vomiting, Diarrhea Stated Complaint: MULTIPLE COMPLAINTS Source: patient, old records Exam Limitations: no limitations Vital Signs & Intake/Output Vital Signs & Intake/Output Vital Signs Date Time Temp Pulse Resp B/P B/P Pulse O2 O2 Flow FiO2 Mean Ox Delivery Rate 11/17 2220 Room Air 11/17 2208 100.8 77 20 153/67 94 Room Air 11/17 2026 100.7 86 18 141/60 93 Room Air ED Intake and Output 11/18 0000 11/17 1200 Intake Total Output Total Balance Patient 192 lb Weight Weight Estimated Measurement Method Allergies Coded Allergies: NO KNOWN ALLERGIES (NONE 09/09/17) Reconcile Medications Alprazolam 0.5 MG TABLET 1 TAB PO DAILY PRN Anxiety (Reported) Amiodarone (Cordarone) 200 MG TAB 0.5 TAB PO DAILY A.fib (Reported) Apixaban (Eliquis) 5 MG TABLET 1 TAB PO BID Blood Thinner (Reported) Atorvastatin Calcium 10 MG TABLET 1 TAB PO DAILY cholesterol (Reported) Bupropion HCl 100 MG TABLET 1 TAB PO DAILY pain (Reported) Calcitriol 0.25 MCG CAPSULE Bone health (Reported) Calcium (Elemental-Fr Calcarb) (Calcium Antacid) 400 MG CALCIUM (1,000 MG) TAB.CHEW 1,000 MG PO TID Supplement (Reported) Cholecalciferol (Vitamin D3) (Vitamin D-3) 2,000 UNIT TABLET 1 TAB PO DAILY Supplement (Reported) Coenzyme Q10 100 MG CAPSULE 1 CAP PO DAILY Supplement (Reported) Daptomycin (Cubicin) 500 MG VIAL 500 MG IV DAILY OSTEOMYELITIS PLEASE CONTINUE UNTIL October 25 Escitalopram Oxalate (Lexapro) 20 MG TABLET 1 TAB PO QPM Anxiety (Reported) Fludrocortisone Acetate 0.1 MG TABLET 1 TAB PO DAILY SUPPLEMENT (Reported) Hydroxychloroquine Sulfate 200 MG TABLET 1 TAB PO DAILY . (Reported) Insulin Glargine,Hum.rec.anlog (Lantus Solostar) 100 UNIT/ML (3 ML) INSULN.PEN 30 UNIT SC DAILY AC Blood sugar (Reported) 26 U daily Insulin Lispro (Humalog) 100 UNIT/ML CARTRIDGE 0 SC TIDAC/HS Blood sugar ( Reported) Please take as follow:\ Blood sugar 80-150 mg/dl: none 151-200 mg/dl: 2 U 201-250 mg/dl: 4 U 251-300 mg/dl: 6 U 301-350 mg/dl: 8 U 351-400 mg/dl: 10 U more than 401 mg/dl: 12 U and call Metoprolol Succ XL (Toprol XL) 25 MG TAB 0.5 TAB PO DAILY HEART HEALTH ( Reported) Mycophenolate Mofetil (Cellcept) 500 MG TABLET 1 TAB PO BID KIDNEY TRANSPLANT Omeprazole 20 MG CAPSULE.DR 1 TAB PO DAILY GI Tacrolimus (Envarsus XR) 4 MG TAB.ER.24H 1 TAB PO DAILY 1000 Transplant Vit A,C & E/Lutein/Minerals (Ocuvite With Lutein Tablet) 1,000-60-2 TABLET 1 TAB PO DAILY Supplement (Reported) Triage Note: RECEIVED 71 YO MALE C/O MID ABDOMINAL DISCOMFORT, STARTED TUESDAY WITH NAUSEA AND RETCHING BUT NOTHING COMES OUT. PT CURRENTLY HAS A WOUND VAC FROM HIS RIGHT FOOT. Triage Nurses Notes Reviewed? yes Onset: 2 days Duration: day(s):, constant, continues in ED Timing: recent history Injury Environment: home Severity: moderate Modifying Factors: Worsens With: eating. HPI: 2 days prior to admission patient complains of fever chills nausea vomiting unable to tolerate food or fluid. He also complains of episodic confusion disorientation insomnia. He denies chest pain cough shortness of breath headache dysuria rash bleeding. Past History Travel History Traveled to [place] past 21 day No Medical History Any Pertinent Medical History? 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 No Review of Systems Review of Systems Constitutional: Reports: see HPI, chills, fever, malaise. EENTM: Reports: no symptoms. Respiratory: Reports: no symptoms. Cardiovascular: Reports: no symptoms. GI: Reports: see HPI, abdominal pain, nausea, vomiting. Genitourinary: Reports: no symptoms. Musculoskeletal: Reports: no symptoms. Skin: Reports: see HPI. Neurological/Psychological: Reports: see HPI, cognitive dysfunction, confusion. Hematologic/Endocrine: Reports: no symptoms. Immunologic/Allergic: Reports: no symptoms. All Other Systems: Reviewed and Negative Physical Exam Physical Exam General Appearance: well developed/nourished, alert, awake, anxious, moderate distress Head: atraumatic, normal appearance Eyes: Bilateral: normal appearance, PERRL, EOMI. Ears, Nose, Throat: normal pharynx, normal ENT inspection, dry mucous membranes Neck: normal inspection, supple, full range of motion, no midline tenderness Respiratory: normal breath sounds, chest non-tender, no respiratory distress, quiet respiration, lungs clear Cardiovascular: regular rate/rhythm, normal peripheral pulses, norml femoral pulses equa Peripheral Pulses: 4+ carotid (R), 4+ carotid (L) Gastrointestinal: normal bowel sounds, soft, non-tender, no organomegaly Back: normal inspection, normal range of motion Extremities: normal range of motion, swelling, tenderness, wound VAC in place draining serosanguineous fluid Neurologic/Psych: no motor/sensory deficits, awake, alert, oriented x 3, normal mood/affect, 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 Skin: normal color, rash Lymphatic: no anterior cervical fortunato Core Measures ACS in differential dx? No CVA/TIA Diagnosis: No Sepsis Present: No Sepsis Focused Exam Completed? No Progress Differential Diagnoses I considered the following diagnoses in my evaluation of the patient: Osteomyelitis bacteremia pneumonia UTI Plan of Care: Orders Procedure Date/time Status Consistent Carbohydrate 2 11/18 B Active Intake & Output 11/18 0058 Active Patient Data 11/17 2357 Active OXYGEN SETUP (GEN) 11/17 230 Active Saline Lock 11/17 2304 Active Admit to inpatient 11/17 2304 Active Vital Signs 11/17 2304 Active Activity/Ambulation 11/17 230 Active Code Status 11/17 2304 Active C-REACTIVE PROTEIN 11/17 2244 Complete BLOOD CULTURE 11/17 2217 Active URINALYSIS 11/17 2217 Active TROPONIN LEVEL 11/17 2217 Complete LIPASE 11/17 2217 Complete LACTIC ACID 11/17 2217 Complete HIGH SENSITIVITY CRP 11/17 2217 Complete WESTERGREN SED RATE 11/17 2217 Complete COMPREHENSIVE METABOLIC PANEL 11/17 2217 Complete CBC WITHOUT DIFFERENTIAL 11/17 2217 Complete EKG 11/17 2217 Active FingerStick- Glucose 11/18 2055 Active Laboratory Tests 11/18/17 0118: Lactic Acid Cancelled 11/17/17 2244: Anion Gap 15, Estimated GFR 37 L, BUN/Creatinine Ratio 26.1 H, Glucose 221 H, Lactic Acid 1.0, Calcium 7.0 L, Total Bilirubin 0.4, AST 21, ALT 22, Alkaline Phosphatase 101, Troponin I 0.04, C-Reactive Prot, Quant > 9.0 H, C-React Prot High Sens > 15.0 H, Total Protein 5.8 L, Albumin 3.3 L, Globulin 2.5, Albumin /Globulin Ratio 1.3, Lipase < 10 L, CBC w Diff MAN DIFF ORDERED, RBC 3.26 L, MCV 81.9, MCH 26.9 L, MCHC 32.8 L, RDW 17.1 H, MPV 7.3 L, Gran % 81.1 H, Lymphocytes % 4.4 L, Monocytes % 14.1 H, Eosinophils % 0.1, Basophils % 0.3, Absolute Granulocytes 6.2, Segmented Neutrophils 81 H, Band Neutrophils 3, Absolute Lymphocytes 0.3 L, Lymphocytes 1 L, Monocytes 15 H, Absolute Monocytes 1.1 H, Absolute Eosinophils 0, Absolute Basophils 0, Platelet Estimate ADEQUATE, Hypochromic-Microcytic 1+, Anisocytosis 1+, Microcytic Cells 1+, ESR Westergren 86 H Microbiology 11/18 2255 BLOOD: Blood Culture - RECD 11/18 2243 BLOOD: Blood Culture - RECD Initial ED EKG: normal axis, normal intervals, normal p-waves, normal QRS complex, normal sinus rhythm, no ST T wave changes Prior EKG: unchanged Rhythm Strip: normal sinus rhythm Departure Departure Time of Disposition: 2299 Disposition: STILL A PATIENT Condition: Stable Clinical Impression Primary Impression: Osteomyelitis Secondary Impressions: Acute kidney injury, Anemia, Nausea & vomiting Referrals: Gilbert Suazo MD (PCP/Family) Departure Forms: Customer Survey General Discharge Information Admission Note Spoke With: Gilbert Suazo MD. Documentation of Exam: Documentation of any treatments & extenuating circumstances including Concerns Regarding Discharge (functional status, medication knowledge or non-compliance, living conditions, etc.) that warrant an admission rather than observation: IV antibiotics podiatry consult infectious disease consult wound consult endocrinology consult medication adjustment follow cultures serial lab exam continuing care discharge planning Critical Care Note Critical Care Note Critical Care Time: 30-74 min (40) living conditions, etc.) that warrant an admission rather than observation: IV antibiotics podiatry consult infectious disease consult wound consult endocrinology consult medication adjustment follow cultures serial lab exam continuing care discharge planning Critical Care Note Critical Care Note Critical Care Time: 30-74 min (40)
--- NOTE | 2017-11-17 22:52 | RADIOLOGY REPORT ---
EXAMINATION: XR FOOT, RIGHT CLINICAL INFORMATION: Dx: osteomyelitis Signs Symptoms: s/p TMA with poorly healing wound, fever COMPARISON: Chest x-ray 10/03/2017 TECHNIQUE: 3 views of the right foot. FINDINGS: There are bandages over the foot. Wound VAC again seen over the soft tissues of the foot adjacent to the amputated first metatarsal. Patient has had prior amputation of the great toe through the shaft of the proximal first metatarsal. There has also been amputation of the third toe at the MTP joint. There is chronic change of the distal proximal phalange of the fourth toe, likely from prior amputation, with a conical contour of the distal shaft. There is vascular calcifications present. There is a small air collection in the soft tissues at the medial side of the second toe adjacent to the MTP joint. There is bone destruction and bone loss of the proximal phalanges of the second toe and the medial side of the head of the second metatarsal consistent with osteomyelitis. There is fracture through the bone destruction at the proximal phalange of the second toe at the medial side of the bone. The joint is subluxed. These abnormalities are new since prior exam 10/03/2017. IMPRESSION: Osteomyelitis, septic joint, of the second MTP joint involving the metatarsal head and the proximal phalanges of the second toe.
[2017-11-17 22:55] LABS: ABSOLUTE BASOPHIL COUNT 0 /CUMM (0.0-0.2); ABSOLUTE EOSINOPHIL COUNT 0 /CUMM (0.0-0.7); ABSOLUTE GRANULOCYTE CT 6.2 /CUMM (1.4-6.5); ABSOLUTE LYMPH COUNT 0.3 /CUMM (1.2-3.4); ABSOLUTE MONOCYTE COUNT 1.1 /CUMM (0.10-0.60); BASOPHIL % 0.3 % (0.0-2.0); EOSINOPHIL % 0.1 % (0-5); GRANULOCYTE % 81.1 % (42.2-75.2); HEMATOCRIT 26.7 % (42-52); MEAN CORPUSCULAR HGB 26.9 PG (27.0-31.0); MEAN CORPUSCULAR HGB CONC 32.8 G/DL (33.0-37.0); MEAN CORPUSCULAR VOLUME 81.9 FL (80.0-94.0); MEAN PLATELET VOLUME 7.3 FL (7.4-10.4); PLATELET COUNT 285 /CUMM (130-400); RBC DISTRIBUTION WIDTH 17.1 % (11.5-14.5); RED BLOOD CELL CT 3.26 /CUMM (4.70-6.10); WHITE BLOOD CELL COUNT 7.7 /CUMM (4.8-10.8)
--- NOTE | 2017-11-17 22:58 | RADIOLOGY REPORT ---
EXAMINATION:\H\ \N\XR CHEST CLINICAL INFORMATION: Fever. COMPARISON: Chest x-ray 11/11/2017 TECHNIQUE: Frontal view of the chest was obtained. 10:29 PM FINDINGS: Right IJ catheter tip at caval atrial junction. No change since prior study. There is asymmetric elevation of the right diaphragm compared to left. The lungs are clear. No pulmonary vascular congestion. No pleural effusion. The cardiac and mediastinal contours are normal. Old healed fracture of the right proximal humeral head partially imaged. IMPRESSION: No acute abnormality of the chest.
--- NOTE | 2017-11-18 00:03 | History & Physical ---
Yesenia Klein MD,[facility] 11/18/17 0002: General Information and HPI MD Statement: I have seen and personally examined BOBBI EDOUARD and documented this H&P. The patient is a 71 year old M who presented with a patient stated chief complaint of [fever and nausea]. Exam Limitations: no limitations History of Present Illness: Mr. Edouard is a 71-year-old male with a PMH significant for ESRD status post renal transplant on tacrolimus and CellCept, paroxysmal atrial fibrillation on Eliquis, HTN, HLD, CVA, DM, osteomyelitis of the right distal phalanx of the right great toe status post partial amputation 09/09/17 with positive pathology for osteomyelitis, blood and OR culture growing Escherichia coli, Citrobacter and MRSA, wound had clean margins presented to ED with chief complaint of fever or chills and nausea. Patient noted that he was in usual state of health till last Tuesday, on Tuesday he started to have nausea (no vomiting), decreased appetit, mild abdominal discomfort and cough without sputum. He also started to have fever of 100.1 F for several times in the last few days. He denied however any change in bowel movement, abdominal pain, wheezing, URTI symptoms. He also denied any bleeding, or pain in the right leg. He reported some swelling of the right leg, wound vac is placed and is changed 2-3 times by visiting nurse, and he denied any pus discharge. He also noted eating in the restaurant) to his house several times during the weekend, but this is a restaurant that he visits so often. He reported impaired balance after last amputation which is chronic, denied any chest pain, disuria, change in urine color. Of note patient was last discharged from [facility] in September 2016 for osteomyelitis and was treated with 4 weeks of daptomycin, patient was placed in STR and was discharged 2 weeks ago. He also noted his transplant medication are changed after discharge, including increased in mycophenolate and tacrolimus dose. Allergies/Medications Allergies: Coded Allergies: NO KNOWN ALLERGIES (NONE 09/09/17) Home Med list Alprazolam 0.5 MG TABLET 1 TAB PO DAILY PRN Anxiety (Reported) Amiodarone (Cordarone) 200 MG TAB 0.5 TAB PO DAILY A.fib (Reported) Apixaban (Eliquis) 5 MG TABLET 1 TAB PO BID Blood Thinner (Reported) Atorvastatin Calcium 10 MG TABLET 1 TAB PO DAILY cholesterol (Reported) Bupropion HCl 100 MG TABLET 1 TAB PO DAILY pain (Reported) Calcitriol 0.25 MCG CAPSULE Bone health (Reported) Calcium (Elemental-Fr Calcarb) (Calcium Antacid) 400 MG CALCIUM (1,000 MG) TAB.CHEW 1,000 MG PO TID Supplement (Reported) Cholecalciferol (Vitamin D3) (Vitamin D-3) 2,000 UNIT TABLET 1 TAB PO DAILY Supplement (Reported) Coenzyme Q10 100 MG CAPSULE 1 CAP PO DAILY Supplement (Reported) Escitalopram Oxalate (Lexapro) 20 MG TABLET 1 TAB PO QPM Anxiety (Reported) Fludrocortisone Acetate 0.1 MG TABLET 1 TAB PO DAILY SUPPLEMENT (Reported) Hydroxychloroquine Sulfate 200 MG TABLET 1 TAB PO DAILY . (Reported) Insulin Glargine,Hum.rec.anlog (Lantus Solostar) 100 UNIT/ML (3 ML) INSULN.PEN 30 UNIT SC DAILY AC Blood sugar (Reported) 26 U daily Insulin Lispro (Humalog) 100 UNIT/ML CARTRIDGE 0 SC TIDAC/HS Blood sugar ( Reported) Please take as follow:\ Blood sugar 80-150 mg/dl: none 151-200 mg/dl: 2 U 201-250 mg/dl: 4 U 251-300 mg/dl: 6 U 301-350 mg/dl: 8 U 351-400 mg/dl: 10 U more than 401 mg/dl: 12 U and call Metoprolol Succ XL (Toprol XL) 25 MG TAB 0.5 TAB PO DAILY HEART HEALTH ( Reported) Mycophenolate Mofetil (Cellcept) 500 MG TABLET 1 TAB PO BID KIDNEY TRANSPLANT Omeprazole 20 MG CAPSULE.DR 1 TAB PO DAILY GI Tacrolimus (Envarsus XR) 4 MG TAB.ER.24H 5 MG PO DAILY 1000 Transplant Vit A,C & E/Lutein/Minerals (Ocuvite With Lutein Tablet) 1,000-60-2 TABLET 1 TAB PO DAILY Supplement (Reported) Past History Travel History Traveled to [place] past 21 day No Medical History Neurological: STROKE EENT: NONE, glaucoma Cardiovascular: AFIB, hypertension, hyperlipidemia, AFIB (ON COUMADIN) Respiratory: NONE Gastrointestinal: NONE Hepatic: NONE Renal: ESRD on HD (in the past), renal transplant Musculoskeletal: fracture, R ARM FRACTURE Psychiatric: NONE Endocrine: diabetes type 2 Blood Disorders: NONE Cancer(s): NONE AERIAL ERECTOR/Reproductive: NONE History of MRSA: Yes History of VRE: No History of CDIFF: No Surgical History Surgical History: RENAL TRANSPLANT right and left toe amputations secondary to IDDM Past Family/Social History Family History Relations & Conditions if any MOTHER FH: diabetes mellitus Myasthenia gravis FATHER FH myocardial infarction male first degree age known FH: diabetes mellitus Relation not specified for: *No pertinent family history Review of Systems Review of Systems Constitutional: Reports: see HPI. Exam & Diagnostic Data Last 24 Hrs of Vital Signs/I&O Vital Signs Date Time Temp Pulse Resp B/P B/P Pulse O2 O2 Flow FiO2 Mean Ox Delivery Rate 11/17 2220 Room Air 11/17 2208 100.8 77 20 153/67 94 Room Air 11/17 2026 100.7 86 18 141/60 93 Room Air Intake & Output 11/18 0800 11/18 0000 11/17 1600 Intake Total Output Total Balance Patient 192 lb Weight Weight Estimated Measurement Method Physical Exam General Appearance Alert, Oriented X3, Cooperative, No Acute Distress Skin Right foot dressing in place, wound vac in place, bloody discharge in vac, edema and swelling of right leg just below the velcro strap Skin Temp/Moisture Exam: Warm/Dry Sepsis Skin Exam (color): Normal for Ethnicity HEENT Atraumatic, EOMI Cardiovascular Normal S1, Normal S2 Lungs Clear to Auscultation, Normal Air Movement Abdomen Soft, No Tenderness Neurological Normal Speech, Strength at 5/5 X4 Ext Extremities as noted above Last 24 Hrs of Labs/Joel: Laboratory Tests 11/18/17 0118: Lactic Acid Cancelled 11/17/17 2244: Anion Gap 15, Estimated GFR 37 L, BUN/Creatinine Ratio 26.1 H, Glucose 221 H, Lactic Acid 1.0, Calcium 7.0 L, Total Bilirubin 0.4, AST 21, ALT 22, Alkaline Phosphatase 101, Troponin I 0.04, C-Reactive Prot, Quant > 9.0 H, C-React Prot High Sens > 15.0 H, Total Protein 5.8 L, Albumin 3.3 L, Globulin 2.5, Albumin /Globulin Ratio 1.3, Lipase < 10 L, CBC w Diff MAN DIFF ORDERED, RBC 3.26 L, MCV 81.9, MCH 26.9 L, MCHC 32.8 L, RDW 17.1 H, MPV 7.3 L, Gran % 81.1 H, Lymphocytes % 4.4 L, Monocytes % 14.1 H, Eosinophils % 0.1, Basophils % 0.3, Absolute Granulocytes 6.2, Segmented Neutrophils 81 H, Band Neutrophils 3, Absolute Lymphocytes 0.3 L, Lymphocytes 1 L, Monocytes 15 H, Absolute Monocytes 1.1 H, Absolute Eosinophils 0, Absolute Basophils 0, Platelet Estimate ADEQUATE, Hypochromic-Microcytic 1+, Anisocytosis 1+, Microcytic Cells 1+, ESR Westergren 86 H Microbiology 11/18 0251 URINE ROUT: Urine Culture - ORD 11/18 2255 BLOOD: Blood Culture - RECD 11/18 2243 BLOOD: Blood Culture - RECD Assessment/Plan Assessment: Mr. Edouard is a 71-year-old male presented to ED with fever, chills and nausea PMH significant for ESRD status post renal transplant on tacrolimus and CellCept , paroxysmal atrial fibrillation on Eliquis, HTN, HLD, CVA, DM, osteomyelitis of the right distal phalanx of the right great toe status post partial amputation with positive pathology for osteomyelitis, blood and OR culture growing Escherichia coli, Citrobacter and MRSA, wound had clean margins VS, Ph Ex at admission: Tmax 100.8, BP 153/67, MD 86, RR 18 Labs at admission: WBC 7.7, Hgb 8.8, band 3, MCV 81 ESR 86 BP 135, CR 1.8, calcium 7, CRP positive Imagings at admission:. Chest x-ray: No acute finding Foot x-ray: Osteomyelitis, septic joint, of the second MTP joint involving the metatarsal head and the proximal phalanges of the second toe. Patient was admitted to floor for management of following conditions: Fever, nausea, vomiting most likely 2/2 right foot infection chronic medical condition - admit patient to floor - IV fluids - Doppler US for DVT - Hold AB - EKG and TN - follow cultures - tacrolimus level in AM - Podiatry consult - Patient NPO - consider ID consult FC DVT ppx: ALPS, hold pharmacologic for possible procedure tomorrow Nothing by mouth for now As Ranked By This Provider Problem List: 1. Nausea & vomiting 2. Kidney replaced by transplant 3. Fever 4. Osteomyelitis Core Measures/Misc (03/20) Acute Coronary Syndrome ACS Diagnosis: No Congestive Heart Failure Congestive Heart Failure Diagnosis No Cerebrovascular Accident CVA/TIA Diagnosis: No VTE (View Protocol) VTE Risk Factors Age>40 No Mechanical VTE Prophylaxis d/t N/A MechProphylax Ordered No VTE Pharm Prophylaxis d/t Medical Contraindication (poss procedure tomorrow) Sepsis (View protocol) Sepsis Present: No [facility] 11/18/17 0519: Resident Review Statement Resident Statement: examined this patient, discussed with international banker, agreed with international banker, discussed with family, reviewed EMR data (avail), discussed with nursing Other Findings: Mr. Edouard is a 71-year-old male with a PMH significant for ESRD status post renal transplant on tacrolimus and mycophenolate, paroxysmal atrial fibrillation on Eliquis, HTN, HLD, CVA, DM, osteomyelitis of the right distal phalanx of the right great toe status post partial amputation 09/09/17 with positive pathology for osteomyelitis, recent discharge on 10/14/16 treated for sepsis with MRSA, status post angioplasty of peroneal artery and wound debridement on wound VAC, long-term antibiotic daptomycin until 10/25/17, complicated with neutropenia who presented to ED with chief complaint of low-grade fever, chills, nausea and dry heaves for 3 days. Patient was discharged from [facility] to [facility], reported finishing his antibiotic course as instructed 10/25/17 and was discharged to home 2 weeks ago. Patient was in his regular state of health, had a follow-up visits with Dr. Suazo PCP, weekly visits with Dr. Dye last one was yesterday. Patient used to have wound cleaning and wound VAC changes with Dr. Dye and did he report any issues to him during the visit yesterday however he reported to us low-grade fever on home temperature measurements 99.1-100.1 associated with on and off chills for 1 day. He also reported nausea and dry heaves, decreased oral intake since Tuesday 3 days. He denied any abdominal pain, diarrhea, constipation, dysuria, chest pain, palpitation, shortness of breath, upper respiratory tract infections. Patient continued to take his immunosuppressants tacrolimus and mycophenolate as instructed, dose was increased at the last visit at [facility] tacrolimus 5 mg daily in a.m., mycophenolate 1000 mg twice daily. On admission temperature 100.7, pulse 86, blood pressure 141/68, respiratory rate 18 saturating 93% on room air Labs pertinent to white blood cell 7.7 with left shift and 3 bands, H&H 8.8/26.7 , platelet 285, sodium 135, potassium 4.5, BUN/creatinine 47/1.8 with baseline creatinine 1.5, ESR 86, C-reactive protein 9, lactic acid 1 Foot x-ray There is a small air collection in the soft tissues at the medial side of the second toe adjacent to the MTP joint. There is bone destruction and bone loss of the proximal phalanges of the second toe and the medial side of the head of the second metatarsal consistent with osteomyelitis. There is fracture through the bone destruction at the proximal phalange of the second toe at the medial side of the bone. The joint is subluxed. These abnormalities are new since prior exam 10/03/2017. IMPRESSION: Osteomyelitis, septic joint, of the second MTP joint involving the metatarsal head and the proximal phalanges of the second toe. Problem list #Osteomyelitis of right second MTP joint and proximal phalangeal joint of second toe #SHIRA on CKD #History of renal transplantation on immunosuppression tacrolimus and mycophenolate #Paroxysmal atrial fibrillation on Eliquis Plan Admit to general medical floor Vitals every shift Ha culture Patient received in ED vancomycin and ceftriaxone will hold off antibiotics for now Podiatry consultation ID consultation Keep n.p.o. for possible procedure in a.m. IV fluid Repeat CBCs and BEP in a.m. Repeat tropes and EKG in a.m. Hold off Eliquis for possible procedure in a.m. Continue essential home medication including tacrolimus 5 mg at 8 AM and mycophenolate 1000 mg twice daily Tacrolimus level before tacrolimus dose in a.m. Doppler ultrasound of right lower extremity Accu Check every 6 and NovoLog sliding scale every 6 Levemir 12 units daily Acetaminophen for pain and fever Avoid narcotics and NSAIDs Code full DVT prophylaxis Alps N.p.o. Lakeisha RANKIN,[facility] 11/18/17 1306: Attending MD Review Statement Attending Statement Attending MD Statement: examined this patient, discuss w/resident/PA/WIRE [employer]OPE SLING MAKER, agreed w/resident/PA/WIRE ROPE SLING MAKER, discussed with family, reviewed EMR data (avail), discussed with nursing, discussed with case mgmt, reviewed images, amended to note Attending Assessment/Plan: Seen and examined independently Head: atraumatic, normal appearance Eyes:Bilateral: normal appearance, PERRL, EOMI. Ears, Nose, Throat: normal pharynx, normal ENT inspection, hearing grossly normal Neck: normal inspection, supple, full range of motion, no midline tenderness Respiratory: normal breath sounds, chest non-tender, no respiratory distress, quiet respiration, lungs clear Cardiovascular: normal peripheral pulses, irregularly irregular, norml femoral pulses equa Peripheral Pulses: 4+ carotid (R), 4+ carotid (L) Gastrointestinal: normal bowel sounds, soft, non-tender, no organomegaly Back: normal inspection, normal range of motion, no vertebral tenderness Extremities: no edema, pelvis stable, dressing with with chronic nonhealing ulcer seen Neurologic/Psych: normal Reflexes:2+: bicep (R), bicep (L). Lymphatic: no anterior cervical adenavf intact IMPRESSION This is a gentleman with s/p renal transplant on immunosupp with initial infected toe with osteo s/p previous surg, previous mrsa bacteremia, DM with * Recurrent osteo and infected foot who was recently on prolonged abx and multiple surgeries now with ongoing osteo and cellulitis * Previous neutopenia and anemia - was on neupogen / and initially thought to be due to vanco aswell and was on dapto * DM, autonomic neuropathy, gastropathy, pvd * Previous MRI showing very small punctate lesions prob ateromatous small emboli , on anticoag, and statin * PT with Pafib in Sinus and sig atheromatous aorta, small pfo, - on eloquis * H/o of Prolonged qtc, previous low mag need to continue to monitor * SHIRA with CKD s/p renal transplant, creat now up to 1.8 * DM insulin requiring * PVD, previous history of stoke, and previous toe amputation, now angioplasty of the lower limb with recent amputations * Previous secondary hyperparathyroid. Sig autonomic dysfunction was on fludocortisone * Pafib on eliquis (in sinus on amiodarone) (being dosed for renal function) * Depression and anxiety * Peripheral neuropathy REC * IV vanco * Cont tacrolimus and mycophenolate * Follow wbc and hgb * Send tacroimus level on tuesday * COnt abx / ID note appretiated * Resume home meds, including calcitrio, metoprolo, bupropion, lexapro, fludrocortizone * ID and Podiatry, vascular, and cardio consult * Hold eloquis and transition to heparin in am without bolus * Keep sugars around 150 Fsg and follow closely
[2017-11-18] MEDS ORDERED: ENVARSUS XR4 MG PO (03:02)
[2017-11-18 06:20] LABS: ABSOLUTE BASOPHIL COUNT 0.1 /CUMM (0.0-0.2); ABSOLUTE EOSINOPHIL COUNT 0 /CUMM (0.0-0.7); ABSOLUTE GRANULOCYTE CT 5.6 /CUMM (1.4-6.5); ABSOLUTE LYMPH COUNT 0.6 /CUMM (1.2-3.4); ABSOLUTE MONOCYTE COUNT 1.3 /CUMM (0.10-0.60); BASOPHIL % 1.3 % (0.0-2.0); EOSINOPHIL % 0.4 % (0-5); GRANULOCYTE % 74.3 % (42.2-75.2); MEAN CORPUSCULAR HGB 26.7 PG (27.0-31.0); MEAN CORPUSCULAR HGB CONC 32.4 G/DL (33.0-37.0); MEAN CORPUSCULAR VOLUME 82.6 FL (80.0-94.0); MEAN PLATELET VOLUME 7.2 FL (7.4-10.4); PLATELET COUNT 287 /CUMM (130-400); RBC DISTRIBUTION WIDTH 17.5 % (11.5-14.5); RED BLOOD CELL CT 3.27 /CUMM (4.70-6.10); WHITE BLOOD CELL COUNT 7.6 /CUMM (4.8-10.8)
--- NOTE | 2017-11-18 07:54 | Event Note ---
Event Note Event Note: Discussed with Dr. Donaldson over the phone advised for I&D, and possible amputation. We will keep the patient n.p.o., and hold EliChemiSenseis.
[2017-11-18 07:55] VITALS: BP 139/64
--- NOTE | 2017-11-18 11:41 | ULTRASOUND REPORT ---
EXAMINATION: US TRIPLEX LOWER EXTREMITY, RIGHT CLINICAL INFORMATION: Right leg swelling COMPARISON: None TECHNIQUE: Color-flow triplex imaging with spectral analysis and compression Doppler were performed on the lower extremity. FINDINGS: Respiratory variation, normal compression and augmented flow are noted throughout the lower extremity. The visualized common femoral vein, superficial femoral vein, profunda femoral vein, popliteal vein and midcalf peroneal and posterior tibial venous segments show no evidence of deep venous thrombosis. There is no Plunkett's cyst. A 2 cm lymph node is noted in the right groin. IMPRESSION: Normal triplex scan without evidence of deep venous thrombosis involving the lower extremity.
--- NOTE | 2017-11-18 12:06 | Cons- Cardiology ---
General Information and HPI Consulting Request Date of Consult: 11/18/17 Requested By: Lakeisha RANKIN,Gilbert Mark Reason for Consult: preoperative assessment Source of Information: patient, old records Exam Limitations: no limitations History of Present Illness: Patient is a 71-year-old male who is well-known to me. The patient was recently in the hospital for osteomyelitis. A TESS was performed by myself at that time which showed no evidence of vegetative lesions. The patient is now back in the hospital with related issues to his osteomyelitis. I was asked by Dr. Suazo to see the patient for further preoperative cardiac evaluation prior to possible amputation. From a cardiac standpoint, the patient has been stable, however, his activities are extremely limited. During his last admission he did have a mildly elevated troponin as well. Allergies/Medications Allergies: Coded Allergies: NO KNOWN ALLERGIES (NONE 09/09/17) Home Med List: Alprazolam 0.5 MG TABLET 1 TAB PO DAILY PRN Anxiety (Reported) Amiodarone (Cordarone) 200 MG TAB 0.5 TAB PO DAILY A.fib (Reported) Apixaban (Eliquis) 5 MG TABLET 1 TAB PO BID Blood Thinner (Reported) Atorvastatin Calcium 10 MG TABLET 1 TAB PO DAILY cholesterol (Reported) Bupropion HCl 100 MG TABLET 1 TAB PO DAILY pain (Reported) Calcitriol 0.25 MCG CAPSULE Bone health (Reported) Calcium (Elemental-Fr Calcarb) (Calcium Antacid) 400 MG CALCIUM (1,000 MG) TAB.CHEW 1,000 MG PO TID Supplement (Reported) Cholecalciferol (Vitamin D3) (Vitamin D-3) 2,000 UNIT TABLET 1 TAB PO DAILY Supplement (Reported) Coenzyme Q10 100 MG CAPSULE 1 CAP PO DAILY Supplement (Reported) Escitalopram Oxalate (Lexapro) 20 MG TABLET 1 TAB PO QPM Anxiety (Reported) Fludrocortisone Acetate 0.1 MG TABLET 1 TAB PO DAILY SUPPLEMENT (Reported) Hydroxychloroquine Sulfate 200 MG TABLET 1 TAB PO DAILY . (Reported) Insulin Glargine,Hum.rec.anlog (Lantus Solostar) 100 UNIT/ML (3 ML) INSULN.PEN 30 UNIT SC DAILY AC Blood sugar (Reported) 26 U daily Insulin Lispro (Humalog) 100 UNIT/ML CARTRIDGE 0 SC TIDAC/HS Blood sugar ( Reported) Please take as follow:\ Blood sugar 80-150 mg/dl: none 151-200 mg/dl: 2 U 201-250 mg/dl: 4 U 251-300 mg/dl: 6 U 301-350 mg/dl: 8 U 351-400 mg/dl: 10 U more than 401 mg/dl: 12 U and call Metoprolol Succ XL (Toprol XL) 25 MG TAB 0.5 TAB PO DAILY HEART HEALTH ( Reported) Mycophenolate Mofetil (Cellcept) 500 MG TABLET 1 TAB PO BID KIDNEY TRANSPLANT Omeprazole 20 MG CAPSULE.DR 1 TAB PO DAILY GI Tacrolimus (Envarsus XR) 4 MG TAB.ER.24H 5 MG PO DAILY 1000 Transplant Vit A,C & E/Lutein/Minerals (Ocuvite With Lutein Tablet) 1,000-60-2 TABLET 1 TAB PO DAILY Supplement (Reported) Current Medications: Current Medications Sig/Ira Start time Last Medication Dose Route Stop Time Status Admin Acetaminophen 650 MG Q6P PRN 11/18 0245 AC PO Acetaminophen 0 .STK-MED ONE 11/18 2319 DC IV Acetaminophen 1,000 MG ONCE ONE 11/17 2229 CO 11/17 IV 11/17 2230 233 Alprazolam 0.5 MG DAILY NEEDED PRN 11/18 0300 AC PO 11/25 0259 Amiodarone HCl 100 MG DAILY 11/18 09 AC 11/18 PO 0752 Atorvastatin Calcium 10 MG DAILY 11/18 09 AC 11/18 PO 0752 Ceftriaxone Sodium 0 .STK-MED ONE 11/18 2335 DC .ROUTE Ceftriaxone Sodium 1,000 MG ONCE ONE 11/17 231 DC 11/17 IV 11/17 231 2334 Dextrose/Sodium 1,000 ML Q13H 11/18 0315 AC Chloride IV Dextrose/Sodium 1,000 ML .[id number] 11/18 0245 CO 11/18 Chloride IV 0245 Famotidine 0 .STK-MED ONE 11/17 2320 DC IV Famotidine 20 MG ONCE ONE 11/17 2229 CO 11/17 IV 11/17 2230 233 Insulin Detemir 12 UNITS DAILY 11/18 0900 11/18 SC 0748 Insulin Human Regular 0 Q6 11/18 0254 11/18 SC 0619 Metoclopramide HCl 0 .STK-MED ONE 11/17 2320 DC .ROUTE Metoclopramide HCl 10 MG ONCE ONE 11/17 2229 CO 11/17 IV 11/17 2231 2334 Metoprolol Succinate 12.5 MG DAILY 11/18 0900 AC 11/18 PO 0752 Mycophenolate Mofetil 1,000 MG BID 11/18 0900 AC 11/18 PO 0751 Mycophenolate Mofetil 1,000 MG ONCE ONE 11/18 0315 DC 11/18 PO 11/18 0316 0351 Omeprazole 20 MG DAILY AC 11/18 0700 AC 11/18 PO 0619 Omeprazole 0 .STK-MED ONE 11/18 0623 DC PO Tacrolimus 5 MG 0800 11/18 0800 AC 11/18 PO 0751 Vancomycin HCl 0 .STK-MED ONE 11/17 2351 DC .ROUTE Vancomycin HCl 1,000 MG ONCE ONE 11/17 2315 DC 11/17 Sodium Chloride 250 ML IV 11/18 0014 2351 Past History Travel History Traveled to [place] past 21 day No Medical History Blood Transfusion Hx: Yes Neurological: STROKE EENT: cataracts, hearing loss, macular degeneration Cardiovascular: AFIB, hypertension, hyperlipidemia, AFIB (ON COUMADIN) Respiratory: NONE Gastrointestinal: GERD Hepatic: NONE Renal: ESRD on HD (in the past), renal transplant Musculoskeletal: fracture, R ARM FRACTURE Psychiatric: NONE Endocrine: diabetes type 2 Blood Disorders: NONE Cancer(s): 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 Home Services at Home: Home Health Aide Smoking Status: Former Smoker Exam & Diagnostic Data Vital Signs and I&O Vital Signs Date Time Temp Pulse Resp B/P B/P Pulse O2 O2 Flow FiO2 Mean Ox Delivery Rate 11/18 0755 98.2 67 18 139/64 99 Room Air 11/18 0753 98.2 67 18 139/64 99 Room Air 11/18 0752 98.1 67 20 180/75 11/18 0752 98.1 67 20 180/75 11/18 0359 98.1 67 20 180/75 97 Room Air 11/17 2220 Room Air 11/17 2208 100.8 77 20 153/67 94 Room Air 11/17 2026 100.7 86 18 141/60 93 Room Air Intake & Output 11/18 1600 11/18 0800 11/18 0000 11/17 1600 11/17 0800 11/17 0000 Intake Total 250 Output Total Balance 250 Intake, IV 250 Patient 190 lb 192 lb Weight Weight Reported by Patient Estimated Measurement Method Physical Exam: General Appearance Alert, Oriented X3, Cooperative, No Acute Distress Skin Right foot dressing in place, wound vac in place, bloody discharge in vac, edema and swelling of right leg just below the velcro strap HEENT Atraumatic, EOMI Cardiovascular Normal S1, Normal S2, 1/6 systolic murmur Lungs Clear to Auscultation and percussion by Abdomen Soft, No Tenderness Neurological Normal Speech/nonfocal Extremities as noted above Labs/Joel Results: Laboratory Tests 11/18 11/18 0730 0609 Chemistry Sodium (137 - 145 mmol/L) 137 Potassium (3.5 - 5.1 mmol/L) 4.2 Chloride (98 - 107 mmol/L) 101 Carbon Dioxide (22 - 30 mmol/L) 24 Anion Gap (5 - 16) 13 BUN (9 - 20 mg/dL) 47 H Creatinine (0.7 - 1.2 mg/dL) 1.8 H Estimated GFR (>60 ml/min) 37 L BUN/Creatinine Ratio (7 - 25 %) 26.1 H Troponin I (<0.11 ng/ml) 0.03 Hematology CBC w Diff MAN DIFF ORDERED WBC (4.8 - 10.8 /CUMM) 7.6 RBC (4.70 - 6.10 /CUMM) 3.27 L Hgb (14.0 - 18.0 G/DL) 8.8 L Hct (42 - 52 %) 27.0 L MCV (80.0 - 94.0 FL) 82.6 MCH (27.0 - 31.0 PG) 26.7 L MCHC (33.0 - 37.0 G/DL) 32.4 L RDW (11.5 - 14.5 %) 17.5 H Plt Count (130 - 400 /CUMM) 287 MPV (7.4 - 10.4 FL) 7.2 L Gran % (42.2 - 75.2 %) 74.3 Lymphocytes % (20.5 - 51.1 %) 7.4 L Monocytes % (1.7 - 9.3 %) 16.6 H Eosinophils % (0 - 5 %) 0.4 Basophils % (0.0 - 2.0 %) 1.3 Absolute Granulocytes (1.4 - 6.5 /CUMM) 5.6 Segmented Neutrophils (42.2 - 75.2 %) 82 H Absolute Lymphocytes (1.2 - 3.4 /CUMM) 0.6 L Lymphocytes (20.5 - 51.1 %) 3 L Monocytes (1.7 - 9.3 %) 14 H Absolute Monocytes (0.10 - 0.60 /CUMM) 1.3 H Absolute Eosinophils (0.0 - 0.7 /CUMM) 0 Basophils (0.0 - 2.0 %) 1 Absolute Basophils (0.0 - 0.2 /CUMM) 0.1 Platelet Estimate (ADEQUATE) ADEQUATE Polychromasia 1+ Hypochromic-Microcytic 1+ Poikilocytosis 1+ Ovalocytes 1+ Stomatocytes FEW Other Body Source Fld Total RBCs Counted (%) 100 Toxicology Tacrolimus Pending 11/18 11/18 0600 0118 Chemistry Lactic Acid Cancelled Urines Urinalysis MOD H Urine Color (YEL,AMB,STR) YEL Urine Clarity (CLEAR) HAZY H Urine pH (5.0 - 8.0) 5.5 Ur Specific [place] (1.001 - 1.035) 1.025 Urine Protein (NEG,<30 MG/DL) 30 H Urine Ketones (NEG) NEG Urine Nitrite (NEG) NEG Urine Bilirubin (NEG) NEG Urine Urobilinogen (0.1 - 1.0 EU/dl) 0.2 Ur Leukocyte Esterase (NEG) NEG Ur Microscopic SEDIMENT EXAMINED Urine RBC (0 - 5 /HPF) >75 H Urine WBC (0 - 2 /HPF) 1-3 H Ur Epithelial Cells (NONE,FEW) FEW Urine Crystals 1+ CA OX H Urine Bacteria (NEG/NONE) MANY H Granular Casts (NONE /LPF) RARE H Urine Hemoglobin (NEG) MOD H Urine Glucose (N MG/DL) NEG 11/17 2244 Chemistry Sodium (137 - 145 mmol/L) 135 L Potassium (3.5 - 5.1 mmol/L) 4.5 Chloride (98 - 107 mmol/L) 98 Carbon Dioxide (22 - 30 mmol/L) 23 Anion Gap (5 - 16) 15 BUN (9 - 20 mg/dL) 47 H Creatinine (0.7 - 1.2 mg/dL) 1.8 H Estimated GFR (>60 ml/min) 37 L BUN/Creatinine Ratio (7 - 25 %) 26.1 H Glucose (65 - 99 mg/dL) 221 H Lactic Acid (0.7 - 2.1 mmol/L) 1.0 Calcium (8.4 - 10.2 mg/dL) 7.0 L Total Bilirubin (0.2 - 1.3 mg/dL) 0.4 AST (17 - 59 U/L) 21 ALT (21 - 72 U/L) 22 Alkaline Phosphatase (< 127 U/L) 101 Troponin I (<0.11 ng/ml) 0.04 C-Reactive Prot, Quant (<1.0 mg/dL) > 9.0 H C-React Prot High Sens (1.0 - 3.0 mg/L) > 15.0 H Total Protein (6.3 - 8.2 g/dL) 5.8 L Albumin (3.5 - 5.0 g/dL) 3.3 L Globulin (1.9 - 4.2 gm/dL) 2.5 Albumin/Globulin Ratio (1.1 - 2.2 %) 1.3 Lipase (23 - 300 U/L) < 10 L Hematology CBC w Diff MAN DIFF ORDERED WBC (4.8 - 10.8 /CUMM) 7.7 RBC (4.70 - 6.10 /CUMM) 3.26 L Hgb (14.0 - 18.0 G/DL) 8.8 L Hct (42 - 52 %) 26.7 L MCV (80.0 - 94.0 FL) 81.9 MCH (27.0 - 31.0 PG) 26.9 L MCHC (33.0 - 37.0 G/DL) 32.8 L RDW (11.5 - 14.5 %) 17.1 H Plt Count (130 - 400 /CUMM) 285 MPV (7.4 - 10.4 FL) 7.3 L Gran % (42.2 - 75.2 %) 81.1 H Lymphocytes % (20.5 - 51.1 %) 4.4 L Monocytes % (1.7 - 9.3 %) 14.1 H Eosinophils % (0 - 5 %) 0.1 Basophils % (0.0 - 2.0 %) 0.3 Absolute Granulocytes (1.4 - 6.5 /CUMM) 6.2 Segmented Neutrophils (42.2 - 75.2 %) 81 H Band Neutrophils (0.0 - 5.0 %) 3 Absolute Lymphocytes (1.2 - 3.4 /CUMM) 0.3 L Lymphocytes (20.5 - 51.1 %) 1 L Monocytes (1.7 - 9.3 %) 15 H Absolute Monocytes (0.10 - 0.60 /CUMM) 1.1 H Absolute Eosinophils (0.0 - 0.7 /CUMM) 0 Absolute Basophils (0.0 - 0.2 /CUMM) 0 Platelet Estimate (ADEQUATE) ADEQUATE Hypochromic-Microcytic 1+ Anisocytosis 1+ Microcytic Cells 1+ ESR Westergren (0 - 10 MM) 86 H Assessment/Plan Assessment/Plan Assessment: 1. Osteomyelitis of right second MTP joint and second toe 2. History of recent troponin elevation 3. Acute on chronic renal insufficiency 4. History of renal transplantation on immunosuppressive therapy 5. History of paroxysmal atrial fibrillation on anticoagulant therapy Recommendations: -Continue as per the medical team -In view of the possible upcoming surgery, and in view of the patient's elevated troponin during his last admission, I would perform a pharmacologic stress test prior to the surgery for better risk stratification. -N.p.o. after midnight Tuesday for possible pharmacologic stress test on Tuesday. Consult Acknowledgment - Thank you for your consult request.
--- NOTE | 2017-11-18 12:55 | Cons- Infect Disease ---
General Information and HPI Consulting Request Date of Consult: 11/18/17 Requested By: Lakeisha RANKIN,Gilbert Mark Reason for Consult: Nonhealing wound of the right foot Source of Information: patient, old records History of Present Illness: This is a 71-year-old man with a history of diabetes, status post renal transplant 3 years prior to admission for end-stage renal disease, maintained on CellCept and Tacrolimus, hypertension, hyperlipidemia, atrial fibrillation, maintained on Eliquis, status post CVA 8 years prior to admission with no residual deficits, peripheral vascular disease, status post amputations of the left third, right third, partial right fourth and, most recently, the right great toe 4 weeks prior to admission when he was hospitalized for MRSA bacteremia and osteomyelitis, treated initially with Vancomycin, which was changed to Daptomycin because of leukopenia and renal insufficiency felt possibly to be secondary to the Vancomycin, with a right peroneal artery angioplasty performed on that hospitalization, discharged to a rehab facility with a wound VAC and a Pro-Line to complete a 4 week course of antibiotics from his most recent debridement, with Podiatry and Vascular surgery recommending that a BKA be done after discharge, admitted on November 17 after presenting to the emergency room with 2 days of nausea, retching, abdominal discomfort and low- grade fevers. On admission he was febrile to 100.8. Laboratory data revealed a white blood cell count of 8000, BUN/creatinine 47 and 1.8. Chest x-ray was negative. X-ray of the right foot revealed osteomyelitis of the right second proximal phalanx and medial side of the metatarsal head, a septic second MTP joint and an air collection in the soft tissues. He was given a dose of Vancomycin and Ceftriaxone and then followed off antibiotics. He has defervesced and notes improvement in his GI symptoms today. He notes minimal discomfort in the right foot but has noted increased right leg swelling over the last several days. Allergies/Medications Allergies: Coded Allergies: NO KNOWN ALLERGIES (NONE 09/09/17) Home Med List: Alprazolam 0.5 MG TABLET 1 TAB PO DAILY PRN Anxiety (Reported) Amiodarone (Cordarone) 200 MG TAB 0.5 TAB PO DAILY A.fib (Reported) Apixaban (Eliquis) 5 MG TABLET 1 TAB PO BID Blood Thinner (Reported) Atorvastatin Calcium 10 MG TABLET 1 TAB PO DAILY cholesterol (Reported) Bupropion HCl 100 MG TABLET 1 TAB PO DAILY pain (Reported) Calcitriol 0.25 MCG CAPSULE Bone health (Reported) Calcium (Elemental-Fr Calcarb) (Calcium Antacid) 400 MG CALCIUM (1,000 MG) TAB.CHEW 1,000 MG PO TID Supplement (Reported) Cholecalciferol (Vitamin D3) (Vitamin D-3) 2,000 UNIT TABLET 1 TAB PO DAILY Supplement (Reported) Coenzyme Q10 100 MG CAPSULE 1 CAP PO DAILY Supplement (Reported) Escitalopram Oxalate (Lexapro) 20 MG TABLET 1 TAB PO QPM Anxiety (Reported) Fludrocortisone Acetate 0.1 MG TABLET 1 TAB PO DAILY SUPPLEMENT (Reported) Hydroxychloroquine Sulfate 200 MG TABLET 1 TAB PO DAILY . (Reported) Insulin Glargine,Hum.rec.anlog (Lantus Solostar) 100 UNIT/ML (3 ML) INSULN.PEN 30 UNIT SC DAILY AC Blood sugar (Reported) 26 U daily Insulin Lispro (Humalog) 100 UNIT/ML CARTRIDGE 0 SC TIDAC/HS Blood sugar ( Reported) Please take as follow:\ Blood sugar 80-150 mg/dl: none 151-200 mg/dl: 2 U 201-250 mg/dl: 4 U 251-300 mg/dl: 6 U 301-350 mg/dl: 8 U 351-400 mg/dl: 10 U more than 401 mg/dl: 12 U and call Metoprolol Succ XL (Toprol XL) 25 MG TAB 0.5 TAB PO DAILY HEART HEALTH ( Reported) Mycophenolate Mofetil (Cellcept) 500 MG TABLET 1 TAB PO BID KIDNEY TRANSPLANT Omeprazole 20 MG CAPSULE.DR 1 TAB PO DAILY GI Tacrolimus (Envarsus XR) 4 MG TAB.ER.24H 5 MG PO DAILY 1000 Transplant Vit A,C & E/Lutein/Minerals (Ocuvite With Lutein Tablet) 1,000-60-2 TABLET 1 TAB PO DAILY Supplement (Reported) Past History Travel History Traveled to [place] past 21 day No Medical History Blood Transfusion Hx: Yes Neurological: STROKE EENT: cataracts, hearing loss, macular degeneration Cardiovascular: AFIB, hypertension, hyperlipidemia, AFIB (ON COUMADIN) Respiratory: NONE Gastrointestinal: GERD Hepatic: NONE Renal: renal transplant Musculoskeletal: fracture, R ARM FRACTURE Psychiatric: NONE Endocrine: diabetes type 2 Blood Disorders: NONE 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 Home Services at Home: Home Health Aide Smoking Status: Former Smoker Review of Systems Review of Systems All Other Systems: Reviewed and Negative Exam & Diagnostic Data Last 24 Hrs of Vital Signs/I&O Vital Signs Date Time Temp Pulse Resp B/P B/P Pulse O2 O2 Flow FiO2 Mean Ox Delivery Rate 11/18 0755 98.2 67 18 139/64 99 Room Air 11/18 0753 98.2 67 18 139/64 99 Room Air 11/18 0752 98.1 67 20 180/75 11/18 0752 98.1 67 20 180/75 11/18 0359 98.1 67 20 180/75 97 Room Air 11/17 2221 Room Air 11/17 2209 100.8 77 20 153/67 94 Room Air 11/17 2027 100.7 86 18 141/60 93 Room Air Intake & Output 11/18 1600 11/18 0800 11/18 0000 Intake Total 250 Output Total Balance 250 Intake, IV 250 Patient 190 lb 192 lb Weight Weight Reported by Patient Estimated Measurement Method Physical Exam Other Physical Findings: He is awake and alert in no acute distress. T-max 100.8. Skin reveals no rash. HEENT exam is negative. Neck is supple with no adenopathy. Chest Pro-Line in the right upper chest with no inflammation at the site. Lungs are clear. Heart regular rhythm with no murmur. Abdomen is soft, nontender with positive bowel sounds. Back no CVA tenderness. Extremities left foot status post amputation of the third toe; right foot status post amputation of the first, third and part of the fourth toes, with poor granulation tissue and purulent drainage from the right foot wound; right second toe discolored and swollen; feeble pulses on both feet; right leg swelling with mild erythema and warmth, nontender to palpation. Neuro neuropathy both feet. Last 24 Hours of Lab Results: Laboratory Tests 11/18 11/18 0730 0609 Chemistry Sodium (137 - 145 mmol/L) 137 Potassium (3.5 - 5.1 mmol/L) 4.2 Chloride (98 - 107 mmol/L) 101 Carbon Dioxide (22 - 30 mmol/L) 24 Anion Gap (5 - 16) 13 BUN (9 - 20 mg/dL) 47 H Creatinine (0.7 - 1.2 mg/dL) 1.8 H Estimated GFR (>60 ml/min) 37 L BUN/Creatinine Ratio (7 - 25 %) 26.1 H Troponin I (<0.11 ng/ml) 0.03 Hematology CBC w Diff MAN DIFF ORDERED WBC (4.8 - 10.8 /CUMM) 7.6 RBC (4.70 - 6.10 /CUMM) 3.27 L Hgb (14.0 - 18.0 G/DL) 8.8 L Hct (42 - 52 %) 27.0 L MCV (80.0 - 94.0 FL) 82.6 MCH (27.0 - 31.0 PG) 26.7 L MCHC (33.0 - 37.0 G/DL) 32.4 L RDW (11.5 - 14.5 %) 17.5 H Plt Count (130 - 400 /CUMM) 287 MPV (7.4 - 10.4 FL) 7.2 L Gran % (42.2 - 75.2 %) 74.3 Lymphocytes % (20.5 - 51.1 %) 7.4 L Monocytes % (1.7 - 9.3 %) 16.6 H Eosinophils % (0 - 5 %) 0.4 Basophils % (0.0 - 2.0 %) 1.3 Absolute Granulocytes (1.4 - 6.5 /CUMM) 5.6 Segmented Neutrophils (42.2 - 75.2 %) 82 H Absolute Lymphocytes (1.2 - 3.4 /CUMM) 0.6 L Lymphocytes (20.5 - 51.1 %) 3 L Monocytes (1.7 - 9.3 %) 14 H Absolute Monocytes (0.10 - 0.60 /CUMM) 1.3 H Absolute Eosinophils (0.0 - 0.7 /CUMM) 0 Basophils (0.0 - 2.0 %) 1 Absolute Basophils (0.0 - 0.2 /CUMM) 0.1 Platelet Estimate (ADEQUATE) ADEQUATE Polychromasia 1+ Hypochromic-Microcytic 1+ Poikilocytosis 1+ Ovalocytes 1+ Stomatocytes FEW Other Body Source Fld Total RBCs Counted (%) 100 Toxicology Tacrolimus Pending 11/18 11/18 0600 0118 Chemistry Lactic Acid Cancelled Urines Urinalysis MOD H Urine Color (YEL,AMB,STR) YEL Urine Clarity (CLEAR) HAZY H Urine pH (5.0 - 8.0) 5.5 Ur Specific [place] (1.001 - 1.035) 1.025 Urine Protein (NEG,<30 MG/DL) 30 H Urine Ketones (NEG) NEG Urine Nitrite (NEG) NEG Urine Bilirubin (NEG) NEG Urine Urobilinogen (0.1 - 1.0 EU/dl) 0.2 Ur Leukocyte Esterase (NEG) NEG Ur Microscopic SEDIMENT EXAMINED Urine RBC (0 - 5 /HPF) >75 H Urine WBC (0 - 2 /HPF) 1-3 H Ur Epithelial Cells (NONE,FEW) FEW Urine Crystals 1+ CA OX H Urine Bacteria (NEG/NONE) MANY H Granular Casts (NONE /LPF) RARE H Urine Hemoglobin (NEG) MOD H Urine Glucose (N MG/DL) NEG 11/17 2244 Chemistry Sodium (137 - 145 mmol/L) 135 L Potassium (3.5 - 5.1 mmol/L) 4.5 Chloride (98 - 107 mmol/L) 98 Carbon Dioxide (22 - 30 mmol/L) 23 Anion Gap (5 - 16) 15 BUN (9 - 20 mg/dL) 47 H Creatinine (0.7 - 1.2 mg/dL) 1.8 H Estimated GFR (>60 ml/min) 37 L BUN/Creatinine Ratio (7 - 25 %) 26.1 H Glucose (65 - 99 mg/dL) 221 H Lactic Acid (0.7 - 2.1 mmol/L) 1.0 Calcium (8.4 - 10.2 mg/dL) 7.0 L Total Bilirubin (0.2 - 1.3 mg/dL) 0.4 AST (17 - 59 U/L) 21 ALT (21 - 72 U/L) 22 Alkaline Phosphatase (< 127 U/L) 101 Troponin I (<0.11 ng/ml) 0.04 C-Reactive Prot, Quant (<1.0 mg/dL) > 9.0 H C-React Prot High Sens (1.0 - 3.0 mg/L) > 15.0 H Total Protein (6.3 - 8.2 g/dL) 5.8 L Albumin (3.5 - 5.0 g/dL) 3.3 L Globulin (1.9 - 4.2 gm/dL) 2.5 Albumin/Globulin Ratio (1.1 - 2.2 %) 1.3 Lipase (23 - 300 U/L) < 10 L Hematology CBC w Diff MAN DIFF ORDERED WBC (4.8 - 10.8 /CUMM) 7.7 RBC (4.70 - 6.10 /CUMM) 3.26 L Hgb (14.0 - 18.0 G/DL) 8.8 L Hct (42 - 52 %) 26.7 L MCV (80.0 - 94.0 FL) 81.9 MCH (27.0 - 31.0 PG) 26.9 L MCHC (33.0 - 37.0 G/DL) 32.8 L RDW (11.5 - 14.5 %) 17.1 H Plt Count (130 - 400 /CUMM) 285 MPV (7.4 - 10.4 FL) 7.3 L Gran % (42.2 - 75.2 %) 81.1 H Lymphocytes % (20.5 - 51.1 %) 4.4 L Monocytes % (1.7 - 9.3 %) 14.1 H Eosinophils % (0 - 5 %) 0.1 Basophils % (0.0 - 2.0 %) 0.3 Absolute Granulocytes (1.4 - 6.5 /CUMM) 6.2 Segmented Neutrophils (42.2 - 75.2 %) 81 H Band Neutrophils (0.0 - 5.0 %) 3 Absolute Lymphocytes (1.2 - 3.4 /CUMM) 0.3 L Lymphocytes (20.5 - 51.1 %) 1 L Monocytes (1.7 - 9.3 %) 15 H Absolute Monocytes (0.10 - 0.60 /CUMM) 1.1 H Absolute Eosinophils (0.0 - 0.7 /CUMM) 0 Absolute Basophils (0.0 - 0.2 /CUMM) 0 Platelet Estimate (ADEQUATE) ADEQUATE Hypochromic-Microcytic 1+ Anisocytosis 1+ Microcytic Cells 1+ ESR Westergren (0 - 10 MM) 86 H Last 24 Hours of Joel Results: Blood cultures November 17 negative Urine culture November 18 pending Diagnostic Data Recent Imaging Findings: Chest x-ray November 17 negative X-ray of the right foot revealed osteomyelitis of the right second proximal phalanx and medial side of the metatarsal head, a septic second MTP joint and a small air collection in the soft tissues of the medial side of the second toe adjacent to the MTP joint. Doppler of the right lower extremity November 18 negative Assessment/Plan Assessment/Plan Impression: This is a 71-year-old man with a history of diabetes, status post renal transplant 3 years prior to admission for end-stage renal disease, maintained on CellCept and Tacrolimus, peripheral vascular disease, status post amputations of the left third, right third, partial right fourth and, most recently, the right great toe 4 weeks prior to admission on his last hospitalization, at which time he was found to have MRSA bacteremia and osteomyelitis, treated with a 4 week course of antibiotics and a right peroneal artery angioplasty, admitted on November 17 with 2 days of nausea, retching, abdominal discomfort and low-grade fevers, found to have a low-grade fever with a normal white blood cell count and with an x-ray of the right foot revealing osteomyelitis, a septic MTP joint of the right second toe and air in the soft tissues. He has a nonhealing right foot wound, with progression of his infection to the second toe, and feel that he will require a BKA in order to resolve this infection. This was recommended on his previous hospitalization and, as he has failed a course of antibiotics for osteomyelitis after amputation of the right great toe and right peroneal artery angioplasty, do not feel that another course of antibiotics will be helpful. He may have an element of cellulitis and, if amputation is planned, he can be covered with perioperative antibiotics. Have discussed with Podiatry, who apparently plans to do a transmetatarsal amputation today but, as noted, feel he will require a BKA. As noted above he did develop leukopenia and mild renal insufficiency while on Vancomycin; therefore if Vancomycin is to be continued he will need to be monitored closely for these potential adverse effects. Suggestion: 1. Podiatry evaluation 2. Vascular surgery evaluation 3. Begin Vancomycin 1 g IV every 24 hours pending OR cultures 4. Close monitoring of his white blood cell count and creatinine while on Vancomycin Consult Acknowledgment - Thank you for your consult request.
--- NOTE | 2017-11-18 14:20 | Cons- Nephrology ---
General Information and HPI Consulting Request Date of Consult: 11/18/17 Requested By: Lakeisha RANKIN,Gilbert Mark Reason for Consult: Chronic kidney disease status post renal transplant Source of Information: patient, old records Exam Limitations: no limitations History of Present Illness: This 71-year-old gentleman came to the emergency room after 3 days of nausea coupled with some fever and chills. He's not had any here. He has a history of diabetic nephropathy and was on dialysis from 2003 specifically July 2003 until September 2014 when he underwent successful transplant. He is maintained on MMF as well as tacrolimus specifically the extended release form. He denies any difficulty with voiding. He has not had any dysuria. Allergies/Medications Allergies: Coded Allergies: NO KNOWN ALLERGIES (NONE 09/09/17) Home Med List: Alprazolam 0.5 MG TABLET 1 TAB PO DAILY PRN Anxiety (Reported) Amiodarone (Cordarone) 200 MG TAB 0.5 TAB PO DAILY A.fib (Reported) Apixaban (Eliquis) 5 MG TABLET 1 TAB PO BID Blood Thinner (Reported) Atorvastatin Calcium 10 MG TABLET 1 TAB PO DAILY cholesterol (Reported) Bupropion HCl 100 MG TABLET 1 TAB PO DAILY pain (Reported) Calcitriol 0.25 MCG CAPSULE Bone health (Reported) Calcium (Elemental-Fr Calcarb) (Calcium Antacid) 400 MG CALCIUM (1,000 MG) TAB.CHEW 1,000 MG PO TID Supplement (Reported) Cholecalciferol (Vitamin D3) (Vitamin D-3) 2,000 UNIT TABLET 1 TAB PO DAILY Supplement (Reported) Coenzyme Q10 100 MG CAPSULE 1 CAP PO DAILY Supplement (Reported) Escitalopram Oxalate (Lexapro) 20 MG TABLET 1 TAB PO QPM Anxiety (Reported) Fludrocortisone Acetate 0.1 MG TABLET 1 TAB PO DAILY SUPPLEMENT (Reported) Hydroxychloroquine Sulfate 200 MG TABLET 1 TAB PO DAILY . (Reported) Insulin Glargine,Hum.rec.anlog (Lantus Solostar) 100 UNIT/ML (3 ML) INSULN.PEN 30 UNIT SC DAILY AC Blood sugar (Reported) 26 U daily Insulin Lispro (Humalog) 100 UNIT/ML CARTRIDGE 0 SC TIDAC/HS Blood sugar ( Reported) Please take as follow:\ Blood sugar 80-150 mg/dl: none 151-200 mg/dl: 2 U 201-250 mg/dl: 4 U 251-300 mg/dl: 6 U 301-350 mg/dl: 8 U 351-400 mg/dl: 10 U more than 401 mg/dl: 12 U and call Metoprolol Succ XL (Toprol XL) 25 MG TAB 0.5 TAB PO DAILY HEART HEALTH ( Reported) Mycophenolate Mofetil (Cellcept) 500 MG TABLET 1 TAB PO BID KIDNEY TRANSPLANT Omeprazole 20 MG CAPSULE.DR 1 TAB PO DAILY GI Tacrolimus (Envarsus XR) 4 MG TAB.ER.24H 5 MG PO DAILY 1000 Transplant Vit A,C & E/Lutein/Minerals (Ocuvite With Lutein Tablet) 1,000-60-2 TABLET 1 TAB PO DAILY Supplement (Reported) Current Medications: Current Medications Sig/Ira Start time Last Medication Dose Route Stop Time Status Admin Acetaminophen 650 MG Q6P PRN 11/18 0245 AC PO Acetaminophen 0 .STK-MED ONE 11/18 2319 VA IV Acetaminophen 1,000 MG ONCE ONE 11/17 2229 VA 11/17 IV 11/17 2230 233 Alprazolam 0.5 MG DAILY NEEDED PRN 11/18 0300 AC PO 11/25 0259 Amiodarone HCl 100 MG DAILY 11/18 0900 11/18 PO 0752 Atorvastatin Calcium 10 MG DAILY 11/18 0900 11/18 PO 0752 Ceftriaxone Sodium 0 .STK-MED ONE 11/18 2335 DC .ROUTE Ceftriaxone Sodium 1,000 MG ONCE ONE 11/17 231 DC 11/17 IV 11/18 2315 2334 Dextrose/Sodium 1,000 ML Q13H 11/18 0315 AC Chloride IV Dextrose/Sodium 1,000 ML .[id number] 11/18 024 VA 11/18 Chloride IV 0245 Famotidine 0 .STK-MED ONE 11/17 2320 DC IV Famotidine 20 MG ONCE ONE 11/17 2229 DC 11/17 IV 11/17 2230 233 Insulin Detemir 12 UNITS DAILY 11/18 0900 11/18 SC 0748 Insulin Human Regular 0 Q6 11/18 0254 11/18 SC 0619 Metoclopramide HCl 0 .STK-MED ONE 11/17 2320 DC .ROUTE Metoclopramide HCl 10 MG ONCE ONE 11/17 2229 VA 11/17 IV 11/17 2230 233 Metoprolol Succinate 12.5 MG DAILY 11/18 0900 AC 11/18 PO 0752 Mycophenolate Mofetil 1,000 MG BID 11/18 0900 AC 11/18 PO 0751 Mycophenolate Mofetil 1,000 MG ONCE ONE 11/18 0315 DC 11/18 PO 11/18 0316 0351 Omeprazole 20 MG DAILY AC 11/18 0700 AC 11/18 PO 0619 Omeprazole 0 .STK-MED ONE 11/18 0623 DC PO Tacrolimus 5 MG 0800 11/18 0800 AC 11/18 PO 0751 Vancomycin HCl 0 .STK-MED ONE 11/17 2351 DC .ROUTE Vancomycin HCl 1,000 MG ONCE ONE 11/17 2315 DC 11/17 Sodium Chloride 250 ML IV 11/18 0014 2351 Review of Systems Review of Systems Constitutional: Reports: chills, fever, malaise, weakness. Denies: see HPI, diaphoresis, unexplained weight loss. EENTM: Reports: no symptoms. Denies: blurred vision, double vision, nasal congestion. Cardiovascular: Denies: chest pain, edema, orthopena, palpitations. Respiratory: Denies: cough, hemoptysis, orthopnea, short of breath, sputum production. GI: Reports: nausea. Denies: constipation, diarrhea, bowel incontinence, melena, bloody stool, changes in stool. Genitourinary: Denies: dysuria, frequency, hematuria, hesitation, nocturia. Musculoskeletal: Denies: back pain, gout, joint pain, joint swelling, muscle pain. Skin: Denies: change in skin color, change in hair/nails, lymphangitis, lumps, rash. 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, subtotal parathyroidectomy EENT: cataracts, hearing loss, macular degeneration Cardiovascular: AFIB, hypertension, hyperlipidemia, AFIB (ON COUMADIN), postural hypotension Respiratory: NONE Gastrointestinal: GERD Hepatic: hepatitis in the past Renal: renal transplant, patient was on hemodialysis from 2003 until 2014 when he underwent a successful donor transplant Musculoskeletal: fracture, R ARM FRACTURE, vitamin D deficiency Psychiatric: NONE Endocrine: diabetes type 2 Blood Disorders: NONE Cancer(s): NONE VENEER GLUE SPREADER/Reproductive: NONE Other Medical Hx: Bilateral carpal tunnel syndrome Surgical History Surgical History: cataract removal, RENAL TRANSPLANT right and left toe amputations secondary to IDDM, aVF, left middle toe amputation, right great toe amputation, ruptured appendix with peritonitis Family History Relations & Conditions If Any: MOTHER FH: diabetes mellitus Myasthenia gravis FATHER FH myocardial infarction male first degree age known FH: diabetes mellitus Relation not specified for: *No pertinent family history Psychosocial History Where Do You Live? Home Services at Home: Home Health Aide Smoking Status: Former Smoker Exam & Diagnostic Data Vital Signs and I&O Vital Signs Date Time Temp Pulse Resp B/P B/P Pulse O2 O2 Flow FiO2 Mean Ox Delivery Rate 11/18 1321 98.3 68 18 141/69 98 Room Air Room Air 11/18 0755 98.2 67 18 139/64 99 Room Air 11/18 0753 98.2 67 18 139/64 99 Room Air 11/18 0752 98.1 67 20 180/75 /18 0752 98.1 67 20 180/75 11/18 0359 98.1 67 20 180/75 97 Room Air 11/17 2221 Room Air 11/17 2209 100.8 77 20 153/67 94 Room Air 11/17 2027 100.7 86 18 141/60 93 Room Air Intake & Output 11/18 1600 11/18 0400 11/17 1600 11/17 0400 16 1600 11/16 0400 Intake Total 250 Output Total Balance 250 Intake, IV 250 Patient 190 lb 192 lb Weight Weight Reported by Patient Estimated Measurement Method Physical Exam General Appearance: well developed/nourished, no apparent distress, alert, awake , comfortable, obese Head: atraumatic, normal appearance Eyes: Bilateral: normal appearance, PERRL, EOMI. Ears, Nose, Throat: normal pharynx Neck: normal inspection, supple, full range of motion, trachea mid line, no midline tenderness, no thyromegaly Respiratory: normal breath sounds, chest non-tender, no respiratory distress Cardiovascular: regular rate/rhythm, edema, gallop, murmur Peripheral Pulses: 0 popliteal (R), 0 popliteal (L), 0 tibialis posterior (R), 0 tibialis posterior (L), 0 dorsalis pedis (R), 0 dorsalis pedis (L) Gastrointestinal: normal bowel sounds, soft, non-tender, no organomegaly, renal allograft easily palpable and nontender in the right lower quadrant, well-healed surgical scar near the umbilicus Back: normal inspection, no vertebral tenderness, no CVA tenderness Extremities: ulcer near the site of the right great toe amputation also with erythema going up to a little bit below the right knee Neurologic/Psych: awake, alert, oriented x 3, normal mood/affect Cranial Nerves: normal speech, PERRL, seems to be somewhat hard of hearing Skin: erythema right foot extending up. Up to below the knee Results Imaging/Other Studies: PATIENT: BOBBI VELARDE PRESENT AGE: 71 PATIENT ACCOUNT NO: [id number] : 46 LOCATION: [facility] ORDERING PHYSICIAN: Abel Perry MD SERVICE DATE: 11/17/17 EXAM TYPE: RAD - XRY-FOOT COMPLETE, R EXAMINATION: XR FOOT, RIGHT CLINICAL INFORMATION: Dx: osteomyelitis Signs Symptoms: s/p TMA with poorly healing wound, fever COMPARISON: Chest x-ray 10/03/2017 TECHNIQUE: 3 views of the right foot. FINDINGS: There are bandages over the foot. Wound VAC again seen over the soft tissues of the foot adjacent to the amputated first metatarsal. Patient has had prior amputation of the great toe through the shaft of the proximal first metatarsal. There has also been amputation of the third toe at the MTP joint. There is chronic change of the distal proximal phalange of the fourth toe, likely from prior amputation, with a conical contour of the distal shaft. There is vascular calcifications present. There is a small air collection in the soft tissues at the medial side of the second toe adjacent to the MTP joint. There is bone destruction and bone loss of the proximal phalanges of the second toe and the medial side of the head of the second metatarsal consistent with osteomyelitis. There is fracture through the bone destruction at the proximal phalange of the second toe at the medial side of the bone. The joint is subluxed. These abnormalities are new since prior exam 10/03/2017. IMPRESSION: Osteomyelitis, septic joint, of the second MTP joint involving the metatarsal head and the proximal phalanges of the second toe. DICTATED BY: Harjinder Daly MD DATE/TIME DICTATED:11/17/172241 BASE DRAW OPERATOR:PETRA DATE/TIME TRANSCRIBED:11/17/172241 CONFIDENTIAL, DO NOT COPY WITHOUT APPROPRIATE AUTHORIZATION. <Electronically signed in Other Vendor System> SIGNED BY: Harjinder Daly MD 11/17/172 PATIENT: BOBBI VELARDE PRESENT AGE: 71 PATIENT ACCOUNT NO: [id number] : 46 LOCATION: [facility] ORDERING PHYSICIAN: Marianela Vasquez MD SERVICE DATE: 11/18/17 EXAM TYPE: US - US-UNILATERAL VENOUS DOPPLER EXAMINATION: US TRIPLEX LOWER EXTREMITY, RIGHT CLINICAL INFORMATION: Right leg swelling COMPARISON: None TECHNIQUE: Color-flow triplex imaging with spectral analysis and compression Doppler were performed on the lower extremity. FINDINGS: Respiratory variation, normal compression and augmented flow are noted throughout the lower extremity. The visualized common femoral vein, superficial femoral vein, profunda femoral vein, popliteal vein and midcalf peroneal and posterior tibial venous segments show no evidence of deep venous thrombosis. There is no Plunkett's cyst. A 2 cm lymph node is noted in the right groin. IMPRESSION: Normal triplex scan without evidence of deep venous thrombosis involving the lower extremity. DICTATED BY: Duc Lopez MD DATE/TIME DICTATED:11/18/171112 BASE DRAW OPERATOR:PETRA DATE/TIME TRANSCRIBED:11/18/171112 CONFIDENTIAL, DO NOT COPY WITHOUT APPROPRIATE AUTHORIZATION. <Electronically signed in Other Vendor System> SIGNED BY: Duc Lopez MD 11/18/17 1145 Assessment/Plan Assessment/Recommendations Assessment: 1. Right foot osteomyelitis. 2. 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 Chronic kidney disease/CK disease stage III he specifically status post successful renal transplant. Ration was on dialysis from 2003 up until 2014. He should be maintained on his usual immunosuppression. The creatinine is riding a little bit higher than it was on his previous admission. I am not so much concerned about acute rejection, but suspect that this may be related to his foot as well as perhaps some degree of volume depletion related to his poor by mouth intake. 8 calm this level should be sent TL tomorrow. 4. History of atrial fibrillation 5. Status post CVA in 2006 6. There was mention of hepatitis B in the past. I did not discuss this with him instead we'll review his old records. I know that he was not isolated when he was on hemodialysis. Recommendations: 1. Encourage by mouth fluids 2. Maintain on current immunosuppression 3. Strict I's and O's and daily weights. 4. Management of the right foot infection as per Eben Dickinson MD and podiatry
--- NOTE | 2017-11-18 15:26 | Operative Report ---
Operative/Inv Procedure Report Surgery Date: 11/18/17 Name of Procedure: 1 Open incision and drainage deep to the D fashion with exposure of the extensor and flexor tendon and tendon sheath multiple sites right foot 2 open, partial second ray resection right foot 3 intraoperative administration of ankle block anesthesia 4 excisional debridement Pre-Operative Diagnosis: 1 just gangrene right foot 2 osteomyelitis right foot Post-Operative Diagnosis: The same Estimated Blood Loss: less than 50ml Surgeon/Research & Analytics Manager: PRASHANT MORGAN DPM Anesthesia: moderate sedation, block Operative/Procedure Note Note: After obtaining informed consent the patient was brought to the operating room and placed on the operating table in the supine position. The patient isn't securely fastened to the operating table utilizing safety belt. After Mr.'s of IV sedation, 10 mL of 0.5% Marcaine plain was infiltrated about the patient's right ankle. Right foot and ankle were scrubbed, prepped and draped in usual aseptic manner. Attention directed to the right foot, where a large full- thickness necrotic was identified. A 15 blade visualized sharply revised skin margins. Dissection was then carried down deep to the deep fascia with exposure of the extensor and flexor tendon and tendon sheath multiple sites, both proximally and distally. All necrotic, nonviable infected tissue sharply evacuated from the wound bed. The dissection was then carried down to the periosteum overlying the distal second metatarsal, which was incised reflected. Sagittal bone saw was utilized performed through and through osteotomy. The distal osseous segment including the second toe was then disarticulated and passed from the operative field. Specimen was sent for both microbiologic and pathologic inspection. The open wound was then irrigated with 3 L of normal sterile saline infusion 50,000 units of bacitracin. Following this, the foot was redraped and the surgeon's top gloves were changed clean gloves. Any bleeding vessels identified were cauterized or ligated as encountered. Nipple was then packed with iodoform and 2-0 nylon retention sutures were placed. The foot was dressed with 4 x 4's, Kerlix, EBD pad and an Qasim wrap. The patient was noted to tolerate both procedure and anesthesia well and the patient was transported from the operating room to recovery with vital signs stable.
[2017-11-18 16:49] VITALS: BP 134/68
[2017-11-18 22:04] VITALS: BP 136/70
[2017-11-19 06:32] VITALS: BP 136/54
[2017-11-19 08:46] LABS: ABSOLUTE BASOPHIL COUNT 0 /CUMM (0.0-0.2); ABSOLUTE EOSINOPHIL COUNT 0.1 /CUMM (0.0-0.7); ABSOLUTE GRANULOCYTE CT 4.2 /CUMM (1.4-6.5); ABSOLUTE LYMPH COUNT 0.4 /CUMM (1.2-3.4); ABSOLUTE MONOCYTE COUNT 0.9 /CUMM (0.10-0.60); BASOPHIL % 0.4 % (0.0-2.0); EOSINOPHIL % 0.9 % (0-5); GRANULOCYTE % 74.7 % (42.2-75.2); HEMATOCRIT 24.9 % (42-52); MEAN CORPUSCULAR HGB 26.6 PG (27.0-31.0); MEAN CORPUSCULAR HGB CONC 32.6 G/DL (33.0-37.0); MEAN CORPUSCULAR VOLUME 81.5 FL (80.0-94.0); MEAN PLATELET VOLUME 8.3 FL (7.4-10.4); PLATELET COUNT 255 /CUMM (130-400); RBC DISTRIBUTION WIDTH 17.7 % (11.5-14.5); RED BLOOD CELL CT 3.05 /CUMM (4.70-6.10); WHITE BLOOD CELL COUNT 5.6 /CUMM (4.8-10.8)
--- NOTE | 2017-11-19 09:20 | PN- Housestaff ---
Subjective Follow-up For: Osteomyelitis of right second MTP status post debridement A KI and CK D Complaints: no complaints Subjective: Patient was seen and examined this morning. He was lying comfortably in bed without any complaints. He denied any pain at her surgery site. His vital signs remained stable his blood pressure 132/58, pulse 68, MAXIMUM TEMPERATURE 99.3, saturating 93% on room air. Patient is requesting for some sleep aid because he was not able to slept fine overnight. Review of Systems Constitutional: Denies: chills, diaphoresis, fever. EENTM: Denies: blurred vision, visual changes. Cardiovascular: Denies: chest pain, edema, orthopena. Respiratory: Denies: cough, hemoptysis, orthopnea. Gastrointestinal: Denies: bloating, constipation. Genitourinary: Denies: dysuria, frequency, hematuria. Musculoskeletal: Reports: see HPI. Denies: back pain, gout. Objective Last 24 Hrs of Vital Signs/I&O Vital Signs Date Time Temp Pulse Resp B/P B/P Pulse O2 O2 Flow FiO2 Mean Ox Delivery Rate 11/19 0831 68 132/58 11/19 0826 68 132/58 11/19 0632 99.3 74 18 136/54 93 Room Air 11/18 2204 97.8 69 20 136/70 96 11/18 1649 99.2 63 20 134/68 96 Room Air Intake & Output 11/19 1600 11/19 0800 11/19 0000 Intake Total 240 240 Output Total 200 Balance 40 240 Intake, Oral 240 240 Output, Urine 200 Patient 190 lb Weight Physical Exam General Appearance: Alert, Oriented X3, Cooperative, No Acute Distress HEENT: PERRLA Neck: Supple, No JVD Cardiovascular: Regular Rate, Normal S1, Normal S2, No Murmurs Lungs: Normal Air Movement Abdomen: Soft, No Tenderness, No Hepatospenomegaly Neurological: Normal Speech Extremities: No Clubbing, No Edema Last 24 Hrs of Lab/Joel Results Last 24 Hrs of Labs/Mics: Laboratory Tests 11/19/17 0600: Hemoglobin A1c Pending 11/19/17 0540: Anion Gap 13, Estimated GFR 37 L, BUN/Creatinine Ratio 22.2, Phosphorus 4.2, CBC w Diff NO MAN DIFF REQ, RBC 3.05 L, MCV 81.5, MCH 26.6 L, MCHC 32.6 L, RDW 17.7 H, MPV 8.3, Gran % 74.7, Lymphocytes % 7.6 L, Monocytes % 16.4 H, Eosinophils % 0.9, Basophils % 0.4, Absolute Granulocytes 4.2, Absolute Lymphocytes 0.4 L, Absolute Monocytes 0.9 H, Absolute Eosinophils 0.1, Absolute Basophils 0 Microbiology 11/19 1411 BLOOD: Blood Culture - ORD 11/19 1411 BLOOD: Blood Culture - ORD 11/18 1510 EXTREMITIE: Gross Specimen Examination - RECD 11/18 151 EXTREMITIE: Gram Stain - RECD Assessment/Plan Assessment: Mr. Edouard is a 71-year-old male with a PMH significant for ESRD status post renal transplant on tacrolimus and mycophenolate, paroxysmal atrial fibrillation on Eliquis, HTN, HLD, CVA, DM, osteomyelitis of the right distal phalanx of the right great toe status post partial amputation 09/09/17 with positive pathology for osteomyelitis, recent discharge on 10/14/16 treated for sepsis with MRSA, status post angioplasty of peroneal artery and wound debridement on wound VAC, long-term antibiotic daptomycin until 10/25/17, complicated with neutropenia who presented to ED with chief complaint of low-grade fever, chills, nausea and dry heaves for 3 days. Currently he is status post open incision and drainage, partial second ray resection right foot. While in general medical floor we will address following problems 1. Right foot osteomyelitis 2. Chronic kidney disease stage III status post successful renal transplant 3. History of atrial fibrillation 4. History of CVA Plan: 1. He his blood culture grew staph aureus and was started on vancomycin. We will continue her vancomycin dose for now until final culture results. ID is on board. 2. We will request echocardiogram to rule out endocarditis 3. Dressing change per podiatry 4. We will avoid any nephrotoxic's. He has slight AK I with creatinine of 1.8 which is stable. We will encourage oral fluids. We will continue all his immunosuppression medications. 5. We will send blood cultures 2 today. 6. Adequate pain medications 7. Eliquis was restarted after surgery. 8. Insulin coverage according to sliding scale 9. We'll continue all his home medications. Patient is full code Pharmacological DVT prophylaxis Patient is on consistent carbohydrate diet 3 Problem List: 1. Osteomyelitis Pain Ratin Pain Location: NA Pain Goal: Remain pain free Pain Plan: TYLENOL Tomorrow's Labs & Rationales: CBC AND BEP
--- NOTE | 2017-11-19 10:16 | PN- Vascular Surgery ---
Surgical Brief Attending Note Brief Attending Note: Patient seen and examined, full note to follow. Has known arteriopathy, s/p right leg endovascular recanalization by Dr. Pereira 4 weeks ago. Admitted for right 2nd toe infected ulcer, s/p amputation. Leg warm, pedal signals present. No acute revascularization required. Follow up with Dr. Pereira once discharged.
--- NOTE | 2017-11-19 12:48 | PN- Nephrology ---
Assessment/Plan Nephrology Assessment: 1. Right foot osteomyelitis. 2. Diabetes mellitus 3. Chronic kidney disease/CK disease stage III he specifically status post successful renal transplant. Maintain him on his usual immunosuppression 4. History of atrial fibrillation 5. Status post CVA in 2006 Suggestion: 1. Continue current meds Subjective Subjective: Feels much better after the debridement. Has energy again. Objective Vital Signs and I&Os Vital Signs Date Time Temp Pulse Resp B/P B/P Pulse O2 O2 Flow FiO2 Mean Ox Delivery Rate 11/19 0831 68 132/58 11/19 0826 68 132/58 11/19 0632 99.3 74 18 136/54 93 Room Air 11/18 2204 97.8 69 20 136/70 96 11/18 1649 99.2 63 20 134/68 96 Room Air 11/18 1321 98.3 68 18 141/69 98 Room Air Room Air Intake & Output 11/19 1600 11/19 0400 11/18 1600 11/18 0400 11/17 1600 11/17 0400 Intake Total 240 240 250 Output Total 200 Balance 40 240 250 Intake, IV 250 Intake, Oral 240 240 Output, Urine 200 Patient 190 lb 192 lb Weight Weight Reported by Patient Estimated Measurement Method Physical Exam: General Appearance: well developed/nourished, no apparent distress, alert, awake , comfortable, obese Head: atraumatic, normal appearance Eyes: Bilateral: normal appearance, PERRL, EOMI. Neck: normal inspection, Respiratory: normal breath sounds, chest non-tender, no respiratory distress Cardiovascular: regular rate/rhythm, edema, gallop, murmur Gastrointestinal: normal bowel sounds, soft, non-tender, no organomegaly, renal allograft easily palpable and nontender in the right lower quadrant, well-healed surgical scar near the umbilicus Back: normal inspection, no vertebral tenderness, no CVA tenderness Extremities: Right foot is bandaged. The lower leg looks much less erythematous Neurologic/Psych: awake, alert, oriented x 3, normal mood/affect Cranial Nerves: normal speech, PERRL, seems to be somewhat hard of hearing Skin: No real erythema on the right lower extremity today Results Pertinent Lab Results: Laboratory Tests 11/19 11/19 11/18 0600 0540 0730 Chemistry Sodium (137 - 145 mmol/L) 138 Potassium (3.5 - 5.1 mmol/L) 4.1 Chloride (98 - 107 mmol/L) 102 Carbon Dioxide (22 - 30 mmol/L) 23 Anion Gap (5 - 16) 13 BUN (9 - 20 mg/dL) 40 H Creatinine (0.7 - 1.2 mg/dL) 1.8 H Estimated GFR (>60 ml/min) 37 L BUN/Creatinine Ratio (7 - 25 %) 22.2 Hemoglobin A1c Pending Phosphorus (2.5 - 4.5 mg/dL) 4.2 Hematology CBC w Diff NO MAN DIFF REQ WBC (4.8 - 10.8 /CUMM) 5.6 RBC (4.70 - 6.10 /CUMM) 3.05 L Hgb (14.0 - 18.0 G/DL) 8.1 L Hct (42 - 52 %) 24.9 L MCV (80.0 - 94.0 FL) 81.5 MCH (27.0 - 31.0 PG) 26.6 L MCHC (33.0 - 37.0 G/DL) 32.6 L RDW (11.5 - 14.5 %) 17.7 H Plt Count (130 - 400 /CUMM) 255 MPV (7.4 - 10.4 FL) 8.3 Gran % (42.2 - 75.2 %) 74.7 Lymphocytes % (20.5 - 51.1 %) 7.6 L Monocytes % (1.7 - 9.3 %) 16.4 H Eosinophils % (0 - 5 %) 0.9 Basophils % (0.0 - 2.0 %) 0.4 Absolute Granulocytes (1.4 - 6.5 /CUMM) 4.2 Absolute Lymphocytes (1.2 - 3.4 /CUMM) 0.4 L Absolute Monocytes (0.10 - 0.60 /CUMM) 0.9 H Absolute Eosinophils (0.0 - 0.7 /CUMM) 0.1 Absolute Basophils (0.0 - 0.2 /CUMM) 0 Toxicology Tacrolimus (() mcg/L) 14.5 05/18 05/18 0609 0600 Chemistry Sodium (137 - 145 mmol/L) 137 Potassium (3.5 - 5.1 mmol/L) 4.2 Chloride (98 - 107 mmol/L) 101 Carbon Dioxide (22 - 30 mmol/L) 24 Anion Gap (5 - 16) 13 BUN (9 - 20 mg/dL) 47 H Creatinine (0.7 - 1.2 mg/dL) 1.8 H Estimated GFR (>60 ml/min) 37 L BUN/Creatinine Ratio (7 - 25 %) 26.1 H Troponin I (<0.11 ng/ml) 0.03 Hematology CBC w Diff MAN DIFF ORDERED WBC (4.8 - 10.8 /CUMM) 7.6 RBC (4.70 - 6.10 /CUMM) 3.27 L Hgb (14.0 - 18.0 G/DL) 8.8 L Hct (42 - 52 %) 27.0 L MCV (80.0 - 94.0 FL) 82.6 MCH (27.0 - 31.0 PG) 26.7 L MCHC (33.0 - 37.0 G/DL) 32.4 L RDW (11.5 - 14.5 %) 17.5 H Plt Count (130 - 400 /CUMM) 287 MPV (7.4 - 10.4 FL) 7.2 L Gran % (42.2 - 75.2 %) 74.3 Lymphocytes % (20.5 - 51.1 %) 7.4 L Monocytes % (1.7 - 9.3 %) 16.6 H Eosinophils % (0 - 5 %) 0.4 Basophils % (0.0 - 2.0 %) 1.3 Absolute Granulocytes (1.4 - 6.5 /CUMM) 5.6 Segmented Neutrophils (42.2 - 75.2 %) 82 H Absolute Lymphocytes (1.2 - 3.4 /CUMM) 0.6 L Lymphocytes (20.5 - 51.1 %) 3 L Monocytes (1.7 - 9.3 %) 14 H Absolute Monocytes (0.10 - 0.60 /CUMM) 1.3 H Absolute Eosinophils (0.0 - 0.7 /CUMM) 0 Basophils (0.0 - 2.0 %) 1 Absolute Basophils (0.0 - 0.2 /CUMM) 0.1 Platelet Estimate (ADEQUATE) ADEQUATE Polychromasia 1+ Hypochromic-Microcytic 1+ Poikilocytosis 1+ Ovalocytes 1+ Stomatocytes FEW Other Body Source Fld Total RBCs Counted (%) 100 Urines Urinalysis MOD H Urine Color (YEL,AMB,STR) YEL Urine Clarity (CLEAR) HAZY H Urine pH (5.0 - 8.0) 5.5 Ur Specific [place] (1.001 - 1.035) 1.025 Urine Protein (NEG,<30 MG/DL) 30 H Urine Ketones (NEG) NEG Urine Nitrite (NEG) NEG Urine Bilirubin (NEG) NEG Urine Urobilinogen (0.1 - 1.0 EU/dl) 0.2 Ur Leukocyte Esterase (NEG) NEG Ur Microscopic SEDIMENT EXAMINED Urine RBC (0 - 5 /HPF) >75 H Urine WBC (0 - 2 /HPF) 1-3 H Ur Epithelial Cells (NONE,FEW) FEW Urine Crystals 1+ CA OX H Urine Bacteria (NEG/NONE) MANY H Granular Casts (NONE /LPF) RARE H Urine Hemoglobin (NEG) MOD H Urine Glucose (N MG/DL) NEG 11/18 11/17 0118 2244 Chemistry Sodium (137 - 145 mmol/L) 135 L Potassium (3.5 - 5.1 mmol/L) 4.5 Chloride (98 - 107 mmol/L) 98 Carbon Dioxide (22 - 30 mmol/L) 23 Anion Gap (5 - 16) 15 BUN (9 - 20 mg/dL) 47 H Creatinine (0.7 - 1.2 mg/dL) 1.8 H Estimated GFR (>60 ml/min) 37 L BUN/Creatinine Ratio (7 - 25 %) 26.1 H Glucose (65 - 99 mg/dL) 221 H Lactic Acid (0.7 - 2.1 mmol/L) Cancelled 1.0 Calcium (8.4 - 10.2 mg/dL) 7.0 L Total Bilirubin (0.2 - 1.3 mg/dL) 0.4 AST (17 - 59 U/L) 21 ALT (21 - 72 U/L) 22 Alkaline Phosphatase (< 127 U/L) 101 Troponin I (<0.11 ng/ml) 0.04 C-Reactive Prot, Quant (<1.0 mg/dL) > 9.0 H C-React Prot High Sens (1.0 - 3.0 mg/L) > 15.0 H Total Protein (6.3 - 8.2 g/dL) 5.8 L Albumin (3.5 - 5.0 g/dL) 3.3 L Globulin (1.9 - 4.2 gm/dL) 2.5 Albumin/Globulin Ratio (1.1 - 2.2 %) 1.3 Lipase (23 - 300 U/L) < 10 L Hematology CBC w Diff MAN DIFF ORDERED WBC (4.8 - 10.8 /CUMM) 7.7 RBC (4.70 - 6.10 /CUMM) 3.26 L Hgb (14.0 - 18.0 G/DL) 8.8 L Hct (42 - 52 %) 26.7 L MCV (80.0 - 94.0 FL) 81.9 MCH (27.0 - 31.0 PG) 26.9 L MCHC (33.0 - 37.0 G/DL) 32.8 L RDW (11.5 - 14.5 %) 17.1 H Plt Count (130 - 400 /CUMM) 285 MPV (7.4 - 10.4 FL) 7.3 L Gran % (42.2 - 75.2 %) 81.1 H Lymphocytes % (20.5 - 51.1 %) 4.4 L Monocytes % (1.7 - 9.3 %) 14.1 H Eosinophils % (0 - 5 %) 0.1 Basophils % (0.0 - 2.0 %) 0.3 Absolute Granulocytes (1.4 - 6.5 /CUMM) 6.2 Segmented Neutrophils (42.2 - 75.2 %) 81 H Band Neutrophils (0.0 - 5.0 %) 3 Absolute Lymphocytes (1.2 - 3.4 /CUMM) 0.3 L Lymphocytes (20.5 - 51.1 %) 1 L Monocytes (1.7 - 9.3 %) 15 H Absolute Monocytes (0.10 - 0.60 /CUMM) 1.1 H Absolute Eosinophils (0.0 - 0.7 /CUMM) 0 Absolute Basophils (0.0 - 0.2 /CUMM) 0 Platelet Estimate (ADEQUATE) ADEQUATE Hypochromic-Microcytic 1+ Anisocytosis 1+ Microcytic Cells 1+ ESR Westergren (0 - 10 MM) 86 H
--- NOTE | 2017-11-19 13:13 | Cons- Vascular Surgery ---
General Information and HPI Consulting Request Date of Consult: 11/19/17 Requested By: Lakeisha RANKIN,Gilbert Mark Reason for Consult: foot ulcer Source of Information: patient, old records Exam Limitations: no limitations History of Present Illness: 71 Y/O male with a PMH ESRD status post renal transplant, PAF on Eliquis, HTN, HLD, CVA, DM, osteo of the right distal phalanx of the right great toe status post partial amputation 09/09/17 with osteomyelitis, growing Escherichia coli, Citrobacter and MRSA, presented to ED with chief complaint of fever or chills and nausea and worsening foot ulcer. He is S/P amputations of the left third, right third, partial right fourth. previously he had a right peroneal artery angioplasty performed and a wound VAC was placed. X-ray of the right foot revealed osteomyelitis of the right second proximal phalanx and septic second MTP joint and an air collection in the soft tissues. He was seen by podiatry for further surgery and debridement of the right foot 11/18. He is comfortable postop and has concerns regarding amputation Allergies/Medications Allergies: Coded Allergies: NO KNOWN ALLERGIES (NONE 09/09/17) Home Med List: Alprazolam 0.5 MG TABLET 1 TAB PO DAILY PRN Anxiety (Reported) Amiodarone (Cordarone) 200 MG TAB 0.5 TAB PO DAILY A.fib (Reported) Apixaban (Eliquis) 5 MG TABLET 1 TAB PO BID Blood Thinner (Reported) Atorvastatin Calcium 10 MG TABLET 1 TAB PO DAILY cholesterol (Reported) Bupropion HCl 100 MG TABLET 1 TAB PO DAILY pain (Reported) Calcitriol 0.25 MCG CAPSULE Bone health (Reported) Calcium (Elemental-Fr Calcarb) (Calcium Antacid) 400 MG CALCIUM (1,000 MG) TAB.CHEW 1,000 MG PO TID Supplement (Reported) Cholecalciferol (Vitamin D3) (Vitamin D-3) 2,000 UNIT TABLET 1 TAB PO DAILY Supplement (Reported) Coenzyme Q10 100 MG CAPSULE 1 CAP PO DAILY Supplement (Reported) Escitalopram Oxalate (Lexapro) 20 MG TABLET 1 TAB PO QPM Anxiety (Reported) Fludrocortisone Acetate 0.1 MG TABLET 1 TAB PO DAILY SUPPLEMENT (Reported) Hydroxychloroquine Sulfate 200 MG TABLET 1 TAB PO DAILY . (Reported) Insulin Glargine,Hum.rec.anlog (Lantus Solostar) 100 UNIT/ML (3 ML) INSULN.PEN 30 UNIT SC DAILY AC Blood sugar (Reported) 26 U daily Insulin Lispro (Humalog) 100 UNIT/ML CARTRIDGE 0 SC TIDAC/HS Blood sugar ( Reported) Please take as follow:\ Blood sugar 80-150 mg/dl: none 151-200 mg/dl: 2 U 201-250 mg/dl: 4 U 251-300 mg/dl: 6 U 301-350 mg/dl: 8 U 351-400 mg/dl: 10 U more than 401 mg/dl: 12 U and call Metoprolol Succ XL (Toprol XL) 25 MG TAB 0.5 TAB PO DAILY HEART HEALTH ( Reported) Mycophenolate Mofetil (Cellcept) 500 MG TABLET 1 TAB PO BID KIDNEY TRANSPLANT Omeprazole 20 MG CAPSULE.DR 1 TAB PO DAILY GI Tacrolimus (Envarsus XR) 4 MG TAB.ER.24H 5 MG PO DAILY 1000 Transplant Vit A,C & E/Lutein/Minerals (Ocuvite With Lutein Tablet) 1,000-60-2 TABLET 1 TAB PO DAILY Supplement (Reported) Current Medications: Current Medications Sig/Ira Start time Last Medication Dose Route Stop Time Status Admin Acetaminophen 650 MG Q6P PRN 11/18 0245 AC 11/18 PO 2344 Alprazolam 0.5 MG DAILY NEEDED PRN 11/18 0300 AC PO 11/25 0259 Amiodarone HCl 100 MG DAILY 11/18 0900 AC 11/19 PO 0826 Apixaban 5 MG BID 11/19 0800 AC 11/19 PO 0825 Atorvastatin Calcium 10 MG DAILY 11/18 0900 AC 11/19 PO 0825 Calcitriol 0.25 MCG DAILY 11/19 1159 AC 11/19 PO 1316 Calcium Carbonate 500 MG TID 11/19 1400 AC 11/19 PO 1318 Cholecalciferol 2,000 IU DAILY 11/19 1200 AC 11/19 PO 1316 Dextrose/Sodium 1,000 ML Q13H 11/18 0315 DC 11/18 Chloride IV 1658 Escitalopram Oxalate 20 MG DAILY 11/20 0900 AC PO Fentanyl Citrate 100 MCG .STK-MED ONE 11/18 1444 DC IM 11/18 1445 Insulin Aspart 0 TIDAC 11/19 0800 AC 11/19 SC 1315 Insulin Detemir 12 UNITS DAILY 05/18 0900 AC 11/19 SC 0832 Insulin Human Regular 0 Q6 11/18 0254 DC 11/18 SC 0619 Metoprolol Succinate 12.5 MG DAILY 11/18 0900 AC 11/19 PO 0831 Midazolam HCl 2 MG .STK-MED ONE 11/18 1444 DC IM 11/18 1445 Mycophenolate Mofetil 1,000 MG BID 11/18 09 AC 11/19 PO 0830 Omeprazole 20 MG DAILY AC 11/18 0700 AC 11/19 PO 0539 Ramelteon 8 MG AT BEDTIME 11/19 2100 AC PO Tacrolimus 2 MG 11/19 0800 AC 11/19 PO 0826 Tacrolimus 3 MG 11/19 0800 AC 11/19 PO 0826 Tacrolimus 5 MG 11/18 0800 DC 11/18 PO 0751 Vancomycin HCl 1,000 MG 2300 11/18 2300 AC 11/18 Sodium Chloride 250 ML IV 2200 Admission Lab Results I reviewed the following labs: Laboratory Tests 11/19 11/19 0600 0540 Chemistry Sodium (137 - 145 mmol/L) 138 Potassium (3.5 - 5.1 mmol/L) 4.1 Chloride (98 - 107 mmol/L) 102 Carbon Dioxide (22 - 30 mmol/L) 23 Anion Gap (5 - 16) 13 BUN (9 - 20 mg/dL) 40 H Creatinine (0.7 - 1.2 mg/dL) 1.8 H Estimated GFR (>60 ml/min) 37 L BUN/Creatinine Ratio (7 - 25 %) 22.2 Hemoglobin A1c Pending Phosphorus (2.5 - 4.5 mg/dL) 4.2 Hematology CBC w Diff NO MAN DIFF REQ WBC (4.8 - 10.8 /CUMM) 5.6 RBC (4.70 - 6.10 /CUMM) 3.05 L Hgb (14.0 - 18.0 G/DL) 8.1 L Hct (42 - 52 %) 24.9 L MCV (80.0 - 94.0 FL) 81.5 MCH (27.0 - 31.0 PG) 26.6 L MCHC (33.0 - 37.0 G/DL) 32.6 L RDW (11.5 - 14.5 %) 17.7 H Plt Count (130 - 400 /CUMM) 255 MPV (7.4 - 10.4 FL) 8.3 Gran % (42.2 - 75.2 %) 74.7 Lymphocytes % (20.5 - 51.1 %) 7.6 L Monocytes % (1.7 - 9.3 %) 16.4 H Eosinophils % (0 - 5 %) 0.9 Basophils % (0.0 - 2.0 %) 0.4 Absolute Granulocytes (1.4 - 6.5 /CUMM) 4.2 Absolute Lymphocytes (1.2 - 3.4 /CUMM) 0.4 L Absolute Monocytes (0.10 - 0.60 /CUMM) 0.9 H Absolute Eosinophils (0.0 - 0.7 /CUMM) 0.1 Absolute Basophils (0.0 - 0.2 /CUMM) 0 Past History Medical History Blood Transfusion Hx: Yes Neurological: 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 EENT: cataracts, hearing loss, macular degeneration Cardiovascular: AFIB, hypertension, hyperlipidemia, AFIB (ON COUMADIN) postural hypotension Respiratory: NONE Gastrointestinal: GERD Hepatic: hepatitis in the past Renal: renal transplant, patient was on hemodialysis from 2003 until 2014 when he underwent a successful donor transplant Musculoskeletal: fracture, R ARM FRACTURE vitamin D deficiency Psychiatric: NONE Endocrine: diabetes type 2 Blood Disorders: NONE Cancer(s): NONE 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 Home Services at Home: Home Health Aide Smoking Status: Former Smoker Review of Systems Review of Systems Constitutional: Denies: chills, fever, weakness. Cardiovascular: Denies: chest pain, palpitations. Respiratory: Denies: cough, short of breath. Exam & Diagnostic Data Vital Signs and I&O Vital Signs Date Time Temp Pulse Resp B/P B/P Pulse O2 O2 Flow FiO2 Mean Ox Delivery Rate 11/19 0831 68 132/58 11/19 0826 68 132/58 11/19 0632 99.3 74 18 136/54 93 Room Air 11/18 2204 97.8 69 20 136/70 96 11/18 1649 99.2 63 20 134/68 96 Room Air Intake & Output 11/19 1600 11/19 0800 11/19 0000 11/18 1600 11/18 0811/18 0000 Intake Total 240 240 250 Output Total 200 Balance 40 240 250 Intake, IV 250 Intake, Oral 240 240 Output, Urine 200 Patient 190 lb 192 lb Weight Weight Reported by Patient Estimated Measurement Method Physical Exam: Patient is alert and oriented -sitting at bedside VSS afebrile chest- CTA symmetric heart -RRR Abd -soft without distention bilateral lower extremities right foot - coban dressing in place, unable to palpate pulses due to dressings left foot warm with palpable pulses calves soft bilat without edema Assessment/Plan Assessment/Plan as per Dr. MOREJON evaluation today - 71 y/o male with known arteriopathy, s/p right leg endovascular recanalization by Dr. Pereira 4 weeks ago. Admitted for right 2nd toe infected ulcer, s/p amputation. Leg warm, pedal signals present. No acute revascularization required. Follow up with Dr. Pereira once discharged. Consult Acknowledgment - Thank you for your consult request.
--- NOTE | 2017-11-19 13:50 | PN- Infect Dx ---
Subjective Subjective: T-max 100.8. He feels improved with no further GI symptoms. He has no discomfort in the right foot. Objective Last 24 Hrs of Vital Signs/I&O Vital Signs Date Time Temp Pulse Resp B/P B/P Pulse O2 O2 Flow FiO2 Mean Ox Delivery Rate 11/19 0831 68 132/58 11/19 0826 68 132/58 11/19 0632 99.3 74 18 136/54 93 Room Air 11/18 2204 97.8 69 20 136/70 96 11/18 1649 99.2 63 20 134/68 96 Room Air Intake & Output 11/19 1600 11/19 0800 11/19 0000 Intake Total 240 240 Output Total 200 Balance 40 240 Intake, Oral 240 240 Output, Urine 200 Physical Exam Other Physical Findings: He appears comfortable in no acute distress Chest Pro-Line in the right upper chest with no inflammation at the site Lungs crackles at the right base Heart regular rhythm with no murmur Abdomen is soft, nontender with positive bowel sounds Extremities right foot dressing intact; right leg with 1+ edema with no erythema Results Last 24 Hours of Lab Results: Laboratory Tests 11/19 11/19 0600 0540 Chemistry Sodium (137 - 145 mmol/L) 138 Potassium (3.5 - 5.1 mmol/L) 4.1 Chloride (98 - 107 mmol/L) 102 Carbon Dioxide (22 - 30 mmol/L) 23 Anion Gap (5 - 16) 13 BUN (9 - 20 mg/dL) 40 H Creatinine (0.7 - 1.2 mg/dL) 1.8 H Estimated GFR (>60 ml/min) 37 L BUN/Creatinine Ratio (7 - 25 %) 22.2 Hemoglobin A1c Pending Phosphorus (2.5 - 4.5 mg/dL) 4.2 Hematology CBC w Diff NO MAN DIFF REQ WBC (4.8 - 10.8 /CUMM) 5.6 RBC (4.70 - 6.10 /CUMM) 3.05 L Hgb (14.0 - 18.0 G/DL) 8.1 L Hct (42 - 52 %) 24.9 L MCV (80.0 - 94.0 FL) 81.5 MCH (27.0 - 31.0 PG) 26.6 L MCHC (33.0 - 37.0 G/DL) 32.6 L RDW (11.5 - 14.5 %) 17.7 H Plt Count (130 - 400 /CUMM) 255 MPV (7.4 - 10.4 FL) 8.3 Gran % (42.2 - 75.2 %) 74.7 Lymphocytes % (20.5 - 51.1 %) 7.6 L Monocytes % (1.7 - 9.3 %) 16.4 H Eosinophils % (0 - 5 %) 0.9 Basophils % (0.0 - 2.0 %) 0.4 Absolute Granulocytes (1.4 - 6.5 /CUMM) 4.2 Absolute Lymphocytes (1.2 - 3.4 /CUMM) 0.4 L Absolute Monocytes (0.10 - 0.60 /CUMM) 0.9 H Absolute Eosinophils (0.0 - 0.7 /CUMM) 0.1 Absolute Basophils (0.0 - 0.2 /CUMM) 0 Last 24 Hours of Joel Results: Blood cultures 2 November 17 positive for Staph aureus Urine culture November 18 negative OR culture November 18 labeled right second toe pending Assessment/Plan ID Impression: Recurrent Staph aureus sepsis, most likely secondary to infection in his right foot, now status post open partial second ray resection of the right foot yesterday for gas gangrene/osteomyelitis, with his temperatures now normal and white blood cell count remaining normal on Vancomycin Day 1. He did undergo a TESS on his recent hospitalization, because of concern of a possible vegetation on his transthoracic echo, and this was negative, but reevaluation for this will be necessary. Of note he did develop neutropenia and renal insufficiency on his recent hospitalization, felt possibly secondary to Vancomycin and prompting a change to Daptomycin; therefore he will need to be closely monitored for any adverse reactions that might be attributed to the Vancomycin. A right BKA was recommended on his recent hospitalization and will again need to be considered as it appears unlikely that his foot will heal without this. Suggestion: 1. Repeat blood cultures 2 today 2. Echocardiogram 3. Further management of his right foot per Podiatry and Vascular surgery 4. Continue Vancomycin, with close monitoring of his white blood cell count and creatinine
[2017-11-19 14:40] VITALS: BP 120/60
--- NOTE | 2017-11-19 16:02 | PN- Att Addend ---
Attending Addendum Attending Brief Note Covering attending note. Patient sitting in bed with the foot elevated. No more nausea and his temperatures are down his vital signs are stable Dr. Dye operated on the patient yesterday and did an open incision and drainage to the fascia with exposed tendons, debridement and partial resection of bone she been followed by infectious diseases vascular surgery and podiatry. Will check all the cultures and will continue the IV antibiotics Intake & Output 11/19 1600 11/19 0400 11/18 1600 11/18 0400 11/17 1600 11/17 0400 Intake Total 740 240 250 Output Total 400 Balance 340 240 250 Intake, IV 250 Intake, Oral 740 240 Output, Urine 400 Patient 190 lb 190 lb 192 lb Weight Weight Reported by Patient Estimated Measurement Method Current Medications Sig/Ira Start time Last Medication Dose Route Stop Time Status Admin Acetaminophen 650 MG Q6P PRN 11/18 0245 AC 11/18 PO 2344 Alprazolam 0.5 MG DAILY NEEDED PRN 11/18 0300 AC PO 11/25 0259 Amiodarone HCl 100 MG DAILY 11/18 09 AC 11/19 PO 0826 Apixaban 5 MG BID 11/19 0800 AC 11/19 PO 0825 Atorvastatin Calcium 10 MG DAILY 11/18 0900 AC 11/19 PO 0825 Calcitriol 0.25 MCG DAILY 11/19 1159 AC 11/19 PO 1316 Calcium Carbonate 500 MG TID 11/19 1400 AC 11/19 PO 1318 Cholecalciferol 2,000 IU DAILY 11/19 1200 AC 11/19 PO 1316 Dextrose/Sodium 1,000 ML Q13H 11/18 0315 DC 11/18 Chloride IV 1658 Escitalopram Oxalate 20 MG DAILY 11/20 09 AC PO Insulin Aspart 0 TIDAC 11/19 0800 AC 11/19 SC 1315 Insulin Detemir 12 UNITS DAILY 11/18 0900 AC 11/19 SC 0832 Insulin Human Regular 0 Q6 11/18 0254 DC 11/18 SC 0619 Metoprolol Succinate 12.5 MG DAILY 11/18 09 AC 11/19 PO 0831 Mycophenolate Mofetil 1,000 MG BID 11/18 0900 AC 11/19 PO 0830 Omeprazole 20 MG DAILY AC 11/18 0700 AC 11/19 PO 0539 Ramelteon 8 MG AT BEDTIME 11/19 2100 AC PO Tacrolimus 2 MG 0800 11/19 0800 AC 11/19 PO 0826 Tacrolimus 3 MG 0811/19 0800 AC 11/19 PO 0826 Tacrolimus 5 MG 0811/18 0800 DC 11/18 PO 0751 Vancomycin HCl 1,000 MG 2300 11/18 2300 AC 11/18 Sodium Chloride 250 ML IV 2200 Laboratory Tests 11/19/17 0600: Hemoglobin A1c Pending 11/19/17 0540: Anion Gap 13, Estimated GFR 37 L, BUN/Creatinine Ratio 22.2, Phosphorus 4.2, CBC w Diff NO MAN DIFF REQ, RBC 3.05 L, MCV 81.5, MCH 26.6 L, MCHC 32.6 L, RDW 17.7 H, MPV 8.3, Gran % 74.7, Lymphocytes % 7.6 L, Monocytes % 16.4 H, Eosinophils % 0.9, Basophils % 0.4, Absolute Granulocytes 4.2, Absolute Lymphocytes 0.4 L, Absolute Monocytes 0.9 H, Absolute Eosinophils 0.1, Absolute Basophils 0 11/18/17 0730: Tacrolimus 14.5 11/18/17 0609: Anion Gap 13, Estimated GFR 37 L, BUN/Creatinine Ratio 26.1 H, Troponin I 0.03 , CBC w Diff MAN DIFF ORDERED, RBC 3.27 L, MCV 82.6, MCH 26.7 L, MCHC 32.4 L, RDW 17.5 H, MPV 7.2 L, Gran % 74.3, Lymphocytes % 7.4 L, Monocytes % 16.6 H, Eosinophils % 0.4, Basophils % 1.3, Absolute Granulocytes 5.6, Segmented Neutrophils 82 H, Absolute Lymphocytes 0.6 L, Lymphocytes 3 L, Monocytes 14 H, Absolute Monocytes 1.3 H, Absolute Eosinophils 0, Basophils 1, Absolute Basophils 0.1, Platelet Estimate ADEQUATE, Polychromasia 1+, Hypochromic- Microcytic 1+, Poikilocytosis 1+, Ovalocytes 1+, Stomatocytes FEW, Fld Total RBCs Counted 100 11/18/17 0600: Urinalysis MOD H, Urine Color YEL, Urine Clarity HAZY H, Urine pH 5.5, Ur Specific [place] 1.025, Urine Protein 30 H, Urine Ketones NEG, Urine Nitrite NEG, Urine Bilirubin NEG, Urine Urobilinogen 0.2, Ur Leukocyte Esterase NEG, Ur Microscopic SEDIMENT EXAMINED, Urine RBC >75 H, Urine WBC 1-3 H, Ur Epithelial Cells FEW, Urine Crystals 1+ CA OX H, Urine Bacteria MANY H, Granular Casts RARE H, Urine Hemoglobin MOD H, Urine Glucose NEG 11/18/17 0118: Lactic Acid Cancelled 11/17/172243: Anion Gap 15, Estimated GFR 37 L, BUN/Creatinine Ratio 26.1 H, Glucose 221 H, Lactic Acid 1.0, Calcium 7.0 L, Total Bilirubin 0.4, AST 21, ALT 22, Alkaline Phosphatase 101, Troponin I 0.04, C-Reactive Prot, Quant > 9.0 H, C-React Prot High Sens > 15.0 H, Total Protein 5.8 L, Albumin 3.3 L, Globulin 2.5, Albumin /Globulin Ratio 1.3, Lipase < 10 L, CBC w Diff MAN DIFF ORDERED, RBC 3.26 L, MCV 81.9, MCH 26.9 L, MCHC 32.8 L, RDW 17.1 H, MPV 7.3 L, Gran % 81.1 H, Lymphocytes % 4.4 L, Monocytes % 14.1 H, Eosinophils % 0.1, Basophils % 0.3, Absolute Granulocytes 6.2, Segmented Neutrophils 81 H, Band Neutrophils 3, Absolute Lymphocytes 0.3 L, Lymphocytes 1 L, Monocytes 15 H, Absolute Monocytes 1.1 H, Absolute Eosinophils 0, Absolute Basophils 0, Platelet Estimate ADEQUATE, Hypochromic-Microcytic 1+, Anisocytosis 1+, Microcytic Cells 1+, ESR Westergren 86 H Microbiology 11/19 1500 BLOOD: Blood Culture - RECD 11/19 1411 BLOOD: Blood Culture - COLB 11/18 1509 EXTREMITIE: Gross Specimen Examination - RECD 11/18 151 EXTREMITIE: Gram Stain - RECD 11/18 0600 URINE ROUT: Urine Culture - RES 11/18 2255 BLOOD: Blood Culture - RES STAPH AUREUS 11/17 224 BLOOD: Blood Culture - RES STAPH AUREUS Microbiology 11/19 1500 BLOOD: Blood Culture - RECD 11/19 1411 BLOOD: Blood Culture - COLB 11/18 1510 EXTREMITIE: Gross Specimen Examination - RECD 11/18 1510 EXTREMITIE: Gram Stain - RECD 11/18 0600 URINE ROUT: Urine Culture - RES 11/18 2255 BLOOD: Blood Culture - RES STAPH AUREUS 11/18 2243 BLOOD: Blood Culture - RES STAPH AUREUS Vital Signs Date Time Temp Pulse Resp B/P B/P Pulse O2 O2 Flow FiO2 Mean Ox Delivery Rate 11/19 1440 98.6 94 69 120/60 20 11/19 0831 68 132/58 11/19 0826 68 132/58 11/19 0632 99.3 74 18 136/54 93 Room Air 11/18 2204 97.8 69 20 136/70 96 11/18 1649 99.2 63 20 134/68 96 Room Air Also continue antirejection medications as per nephrology's recommendations.
[2017-11-19 22:36] VITALS: BP 130/60
[2017-11-20 06:20] VITALS: BP 128/64
--- NOTE | 2017-11-20 08:17 | PN- Housestaff ---
Subjective Follow-up For: Osteomyelitis of right second MTP status post debridement SHIRA and CKD Subjective: Patient seen and examined at bedside. Patient was sitting in his bed comfortably. He denies any pain in the right foot. The patient feels overwhelmed regarding the discussion of BKA Review of Systems Constitutional: Reports: no symptoms, see HPI. Objective Last 24 Hrs of Vital Signs/I&O Vital Signs Date Time Temp Pulse Resp B/P B/P Pulse O2 O2 Flow FiO2 Mean Ox Delivery Rate 11/20 0817 71 142/58 11/20 0811 58 142/58 11/20 0620 98.5 61 20 128/64 92 Room Air 11/19 2236 98.1 64 20 130/60 94 Room Air 11/19 1440 98.6 69 20 120/60 94 Intake & Output 11/20 1600 11/20 0800 11/20 0000 Intake Total 280 Output Total 1025 300 Balance -745 -300 Intake, IV 280 Output, Urine 1025 300 Patient 188 lb Weight Weight Bed scale Measurement Method Physical Exam General Appearance: Alert, Oriented X3, Cooperative, No Acute Distress Cardiovascular: Normal S1, Normal S2, No Murmurs Lungs: Clear to Auscultation Abdomen: Soft, No Tenderness, No Hepatospenomegaly Neurological: Strength at 5/5 X4 Ext, Normal Tone, Sensation Intact Extremities: right fourth-dressing intact Current Medications: Current Medications Sig/Ira Start time Last Medication Dose Route Stop Time Status Admin Acetaminophen 650 MG Q6P PRN 11/18 0245 AC 11/20 PO 0826 Alprazolam 0.5 MG DAILY NEEDED PRN 11/18 0300 AC PO 11/25 0259 Amiodarone HCl 100 MG DAILY 11/18 09 AC 11/20 PO 0811 Apixaban 5 MG BID 11/19 0800 AC 11/20 PO 0809 Atorvastatin Calcium 10 MG DAILY 11/18 0900 AC 11/20 PO 0811 Calcitriol 0.25 MCG DAILY 11/19 1159 AC 11/20 PO 0811 Calcium Carbonate 500 MG TID 11/19 1400 AC 11/20 PO 0817 Cholecalciferol 2,000 IU DAILY 11/19 1200 AC 11/20 PO 0811 Escitalopram Oxalate 20 MG DAILY 11/20 0900 AC 11/20 PO 0810 Insulin Aspart 0 TIDAC 11/19 0800 AC 11/20 SC 1212 Insulin Detemir 12 UNITS DAILY 11/18 09 AC 11/20 SC 0818 Metoprolol Succinate 12.5 MG DAILY 11/18 09 AC 11/20 PO 0817 Mycophenolate Mofetil 1,000 MG BID 11/18 09 AC 11/20 PO 0815 Omeprazole 20 MG DAILY AC 11/18 0700 AC 11/20 PO 0539 Ramelteon 8 MG AT BEDTIME 11/19 2100 AC 11/19 PO 2017 Tacrolimus 2 MG 11/19 08 AC 11/20 PO 08 Tacrolimus 3 MG 11/19 0800 AC 11/20 PO 08 Vancomycin HCl 1,000 MG 2300 11/18 2300 AC 11/19 Sodium Chloride 250 ML IV 2256 Last 24 Hrs of Lab/Joel Results Last 24 Hrs of Labs/Mics: Laboratory Tests 11/20/17 0555: Anion Gap 10, Estimated GFR 40 L, BUN/Creatinine Ratio 21.8, CBC w Diff NO MAN DIFF REQ, RBC 3.00 L, MCV 81.3, MCH 26.6 L, MCHC 32.8 L, RDW 16.9 H, MPV 8.3 , Gran % 73.9, Lymphocytes % 9.6 L, Monocytes % 13.4 H, Eosinophils % 2.3, Basophils % 0.8, Absolute Granulocytes 4.0, Absolute Lymphocytes 0.5 L, Absolute Monocytes 0.7 H, Absolute Eosinophils 0.1, Absolute Basophils 0 Microbiology 11/19 1706 BLOOD: Blood Culture - RECD 11/19 1500 BLOOD: Blood Culture - RECD Assessment/Plan Assessment: Mr. Edouard is a 71-year-old male presented to ED with fever, chills and nausea With past medical history of significant for ESRD status post renal transplant on tacrolimus and CellCept, paroxysmal atrial fibrillation on Eliquis, HTN, HLD, CVA, DM, osteomyelitis of the right distal phalanx of the right great toe status post partial amputation 09/09/17 with positive pathology for osteomyelitis, blood and OR culture growing Escherichia coli, Citrobacter and MRSA, wound had clean margins Assessment and plan November 18 OR cultures growing staph aureus November 17 blood culture going growing MRSA November 19 blood culture pending Right foot osteomyelitis status post resection and I&D * Continue vancomycin. Monitor electrolytes medically creatinine. ID on board. * Continue tacrolimus and CellCept * Umpw-[id number]-[id number] scale NovoLog insulin * Continue Eliquis, amiodarone, metoprolol for A. fib * Echo pending- * Appreciate follow-up with podiatry, ID, vascular surgery, nephrology. Code-full code Diet-diabetic diet Problem List: 1. Osteomyelitis of foot, right, acute Pain Ratin Pain Location: NONE Pain Goal: Remain pain free Pain Plan: Tylenol Tomorrow's Labs & Rationales: CBC,BEP
[2017-11-20 08:32] LABS: ABSOLUTE BASOPHIL COUNT 0 /CUMM (0.0-0.2); ABSOLUTE EOSINOPHIL COUNT 0.1 /CUMM (0.0-0.7); ABSOLUTE LYMPH COUNT 0.5 /CUMM (1.2-3.4); ABSOLUTE MONOCYTE COUNT 0.7 /CUMM (0.10-0.60); BASOPHIL % 0.8 % (0.0-2.0); EOSINOPHIL % 2.3 % (0-5); GRANULOCYTE % 73.9 % (42.2-75.2); HEMATOCRIT 24.4 % (42-52); MEAN CORPUSCULAR HGB 26.6 PG (27.0-31.0); MEAN CORPUSCULAR HGB CONC 32.8 G/DL (33.0-37.0); MEAN CORPUSCULAR VOLUME 81.3 FL (80.0-94.0); MEAN PLATELET VOLUME 8.3 FL (7.4-10.4); PLATELET COUNT 252 /CUMM (130-400); RBC DISTRIBUTION WIDTH 16.9 % (11.5-14.5); WHITE BLOOD CELL COUNT 5.4 /CUMM (4.8-10.8)
[2017-11-20 14:35] VITALS: BP 110/64
--- NOTE | 2017-11-20 15:37 | PN- Cardiology ---
Subjective Subjective: No chest pain. No shortness of breath. No diaphoresis. No palpitations. Objective Vital Signs and I&Os Vital Signs Date Time Temp Pulse Resp B/P B/P Pulse O2 O2 Flow FiO2 Mean Ox Delivery Rate 11/20 1435 97.7 68 20 110/64 96 11/20 0817 71 142/58 11/20 0811 58 142/58 11/20 0620 98.5 61 20 128/64 92 Room Air 11/19 2236 98.1 64 20 130/60 94 Room Air Intake & Output 11/20 1600 11/20 0800 11/20 0000 11/19 1600 11/19 0800 11/19 0000 Intake Total 280 1100 240 240 Output Total 1025 300 200 200 Balance -745 -300 900 40 240 Intake, IV 280 Intake, Oral 1100 240 240 Number 0 Bowel Movements Output, Urine 1025 300 200 200 Patient 188 lb 190 lb Weight Weight Bed scale Measurement Method Physical Exam: Gen: NAD HEENT: normal Lungs: clear to auscultation, normal resp. effort Heart: RRR, S1, S2, 1 out of 6 systolic murmur Abdomen: Soft, nontender, no masses Extremities: Wound VAC in place on the right lower external Neuro: Alert and oriented x 3, cranial nerves intact Current Medications: Current Medications Sig/Ira Start time Last Medication Dose Route Stop Time Status Admin Acetaminophen 650 MG Q6P PRN 11/18 0245 AC 11/20 PO 0826 Alprazolam 0.5 MG DAILY NEEDED PRN 11/18 0300 AC PO 11/25 0259 Amiodarone HCl 100 MG DAILY 11/18 09 AC 11/20 PO 0811 Apixaban 5 MG BID 11/19 0800 AC 11/20 PO 0809 Atorvastatin Calcium 10 MG DAILY 11/18 0900 AC 11/20 PO 0811 Calcitriol 0.25 MCG DAILY 11/19 1159 AC 11/20 PO 0811 Calcium Carbonate 500 MG TID 11/19 1400 AC 11/20 PO 1428 Cholecalciferol 2,000 IU DAILY 11/19 1200 AC 11/20 PO 0811 Escitalopram Oxalate 20 MG DAILY 11/20 0900 AC 11/20 PO 0810 Insulin Aspart 0 TIDAC 11/19 0800 AC 11/20 SC 1212 Insulin Detemir 12 UNITS DAILY 11/18 09 AC 11/20 SC 0818 Metoprolol Succinate 12.5 MG DAILY 11/18 09 AC 11/20 PO 0817 Mycophenolate Mofetil 1,000 MG BID 11/18 09 AC 11/20 PO 0815 Omeprazole 20 MG DAILY AC 11/18 07 AC 11/20 PO 0539 Ramelteon 8 MG AT BEDTIME 11/19 2100 AC 11/19 PO 2017 Tacrolimus 2 MG 11/19 08 AC 11/20 PO 08 Tacrolimus 3 MG 11/19 0800 AC 11/20 PO 08 Vancomycin HCl 1,000 MG 2300 11/18 2300 AC 11/19 Sodium Chloride 250 ML IV 2256 Results Last 48 Hrs of Labs/Mics: Laboratory Tests 11/20/17 0555: Anion Gap 10, Estimated GFR 40 L, BUN/Creatinine Ratio 21.8, CBC w Diff NO MAN DIFF REQ, RBC 3.00 L, MCV 81.3, MCH 26.6 L, MCHC 32.8 L, RDW 16.9 H, MPV 8.3 , Gran % 73.9, Lymphocytes % 9.6 L, Monocytes % 13.4 H, Eosinophils % 2.3, Basophils % 0.8, Absolute Granulocytes 4.0, Absolute Lymphocytes 0.5 L, Absolute Monocytes 0.7 H, Absolute Eosinophils 0.1, Absolute Basophils 0 11/19/17 0600: Hemoglobin A1c Pending 11/19/17 0540: Anion Gap 13, Estimated GFR 37 L, BUN/Creatinine Ratio 22.2, Phosphorus 4.2, CBC w Diff NO MAN DIFF REQ, RBC 3.05 L, MCV 81.5, MCH 26.6 L, MCHC 32.6 L, RDW 17.7 H, MPV 8.3, Gran % 74.7, Lymphocytes % 7.6 L, Monocytes % 16.4 H, Eosinophils % 0.9, Basophils % 0.4, Absolute Granulocytes 4.2, Absolute Lymphocytes 0.4 L, Absolute Monocytes 0.9 H, Absolute Eosinophils 0.1, Absolute Basophils 0 Assessment/Plan Assessment/Plan Assessment: 1. Osteomyelitis of right second MTP joint and second toe 2. History of recent troponin elevation 3. Acute on chronic renal insufficiency 4. History of renal transplantation on immunosuppressive therapy 5. History of paroxysmal atrial fibrillation on anticoagulant therapy Plan: * Continue current cardiac medications * Pharmacologic nuclear stress test planned for Tuesday Continue telemetry? Yes
--- NOTE | 2017-11-20 16:05 | PN- Att Addend ---
Attending Addendum Attending Brief Note Covering attending note: Patient seems comfortable and denies any pain in the affected foot His vital signs are stable has no fever no major changes on physical. The foot is covered had the debridement 2 days ago Latest blood cultures 2 negative after 24 hours with extremity culture from November 18 a preliminary report shows heavy growth of staph aureus isolated. WBCs 5400, hemoglobin 8, hematocrit 24.4 , BUN 37, creatinine 1.7 testing 4.4. To continue present treatment and follow-up by specialists in a.m.. Intake & Output 11/20 1600 11/20 0400 11/19 1600 11/19 0400 11/18 0400 Intake Total 280 1340 240 250 Output Total 1025 300 400 Balance -745 -300 940 240 250 Intake, IV 280 250 Intake, Oral 1340 240 Number 0 Bowel Movements Output, Urine 1025 300 400 Patient 188 lb 190 lb 190 lb 192 lb Weight Weight Bed scale Reported by Patient Estimated Measurement Method Current Medications Sig/Ira Start time Last Medication Dose Route Stop Time Status Admin Acetaminophen 650 MG Q6P PRN 11/18 0245 AC 11/20 PO 0826 Alprazolam 0.5 MG DAILY NEEDED PRN 11/18 0300 AC PO 11/25 0259 Amiodarone HCl 100 MG DAILY 11/18 899 AC 11/20 PO 0811 Apixaban 5 MG BID 11/19 08 AC 11/20 PO 0809 Atorvastatin Calcium 10 MG DAILY 11/18 09 AC 11/20 PO 0811 Calcitriol 0.25 MCG DAILY 11/19 1159 AC 11/20 PO 0811 Calcium Carbonate 500 MG TID 11/19 1400 AC 11/20 PO 1428 Cholecalciferol 2,000 IU DAILY 11/19 1200 AC 11/20 PO 0811 Escitalopram Oxalate 20 MG DAILY 11/20 09 AC 11/20 PO 0810 Insulin Aspart 0 TIDAC 11/19 08 AC 11/20 SC 1212 Insulin Detemir 12 UNITS DAILY 11/18 09 AC 11/20 SC 0818 Metoprolol Succinate 12.5 MG DAILY 11/18 09 AC 11/20 PO 0817 Mycophenolate Mofetil 1,000 MG BID 11/18 09 AC 11/20 PO 0815 Omeprazole 20 MG DAILY AC 11/18 0700 AC 11/20 PO 0539 Ramelteon 8 MG AT BEDTIME 11/19 2100 AC 11/19 PO 2017 Tacrolimus 2 MG 0811/19 0800 AC 11/20 PO 08 Tacrolimus 3 MG 0811/19 0800 AC 11/20 PO 08 Vancomycin HCl 1,000 MG 2300 11/18 2300 11/19 Sodium Chloride 250 ML IV 2256 Laboratory Tests 11/20/17 0555: Anion Gap 10, Estimated GFR 40 L, BUN/Creatinine Ratio 21.8, CBC w Diff NO MAN DIFF REQ, RBC 3.00 L, MCV 81.3, MCH 26.6 L, MCHC 32.8 L, RDW 16.9 H, MPV 8.3 , Gran % 73.9, Lymphocytes % 9.6 L, Monocytes % 13.4 H, Eosinophils % 2.3, Basophils % 0.8, Absolute Granulocytes 4.0, Absolute Lymphocytes 0.5 L, Absolute Monocytes 0.7 H, Absolute Eosinophils 0.1, Absolute Basophils 0 11/19/17 0600: Hemoglobin A1c Pending 11/19/17 0540: Anion Gap 13, Estimated GFR 37 L, BUN/Creatinine Ratio 22.2, Phosphorus 4.2, CBC w Diff NO MAN DIFF REQ, RBC 3.05 L, MCV 81.5, MCH 26.6 L, MCHC 32.6 L, RDW 17.7 H, MPV 8.3, Gran % 74.7, Lymphocytes % 7.6 L, Monocytes % 16.4 H, Eosinophils % 0.9, Basophils % 0.4, Absolute Granulocytes 4.2, Absolute Lymphocytes 0.4 L, Absolute Monocytes 0.9 H, Absolute Eosinophils 0.1, Absolute Basophils 0 11/18/17 0730: Tacrolimus 14.5 11/18/17 0609: Anion Gap 13, Estimated GFR 37 L, BUN/Creatinine Ratio 26.1 H, Troponin I 0.03 , CBC w Diff MAN DIFF ORDERED, RBC 3.27 L, MCV 82.6, MCH 26.7 L, MCHC 32.4 L, RDW 17.5 H, MPV 7.2 L, Gran % 74.3, Lymphocytes % 7.4 L, Monocytes % 16.6 H, Eosinophils % 0.4, Basophils % 1.3, Absolute Granulocytes 5.6, Segmented Neutrophils 82 H, Absolute Lymphocytes 0.6 L, Lymphocytes 3 L, Monocytes 14 H, Absolute Monocytes 1.3 H, Absolute Eosinophils 0, Basophils 1, Absolute Basophils 0.1, Platelet Estimate ADEQUATE, Polychromasia 1+, Hypochromic- Microcytic 1+, Poikilocytosis 1+, Ovalocytes 1+, Stomatocytes FEW, Fld Total RBCs Counted 100 11/18/17 0600: Urinalysis MOD H, Urine Color YEL, Urine Clarity HAZY H, Urine pH 5.5, Ur Specific [place] 1.025, Urine Protein 30 H, Urine Ketones NEG, Urine Nitrite NEG, Urine Bilirubin NEG, Urine Urobilinogen 0.2, Ur Leukocyte Esterase NEG, Ur Microscopic SEDIMENT EXAMINED, Urine RBC >75 H, Urine WBC 1-3 H, Ur Epithelial Cells FEW, Urine Crystals 1+ CA OX H, Urine Bacteria MANY H, Granular Casts RARE H, Urine Hemoglobin MOD H, Urine Glucose NEG 11/18/17 0118: Lactic Acid Cancelled 11/17/17 2244: Anion Gap 15, Estimated GFR 37 L, BUN/Creatinine Ratio 26.1 H, Glucose 221 H, Lactic Acid 1.0, Calcium 7.0 L, Total Bilirubin 0.4, AST 21, ALT 22, Alkaline Phosphatase 101, Troponin I 0.04, C-Reactive Prot, Quant > 9.0 H, C-React Prot High Sens > 15.0 H, Total Protein 5.8 L, Albumin 3.3 L, Globulin 2.5, Albumin /Globulin Ratio 1.3, Lipase < 10 L, CBC w Diff MAN DIFF ORDERED, RBC 3.26 L, MCV 81.9, MCH 26.9 L, MCHC 32.8 L, RDW 17.1 H, MPV 7.3 L, Gran % 81.1 H, Lymphocytes % 4.4 L, Monocytes % 14.1 H, Eosinophils % 0.1, Basophils % 0.3, Absolute Granulocytes 6.2, Segmented Neutrophils 81 H, Band Neutrophils 3, Absolute Lymphocytes 0.3 L, Lymphocytes 1 L, Monocytes 15 H, Absolute Monocytes 1.1 H, Absolute Eosinophils 0, Absolute Basophils 0, Platelet Estimate ADEQUATE, Hypochromic-Microcytic 1+, Anisocytosis 1+, Microcytic Cells 1+, ESR Westergren 86 H Microbiology 11/19 1706 BLOOD: Blood Culture - RES 11/19 1500 BLOOD: Blood Culture - RES 11/18 1510 EXTREMITIE: Gross Specimen Examination - RES STAPH AUREUS 11/18 1510 EXTREMITIE: Gram Stain - RES 11/18 0600 URINE ROUT: Urine Culture - COMP 11/18 2255 BLOOD: Blood Culture - RES METH RESIST STAPH AUREUS 11/18 2243 BLOOD: Blood Culture - COMP METH RESIST STAPH AUREUS Microbiology 11/19 1706 BLOOD: Blood Culture - RES 11/19 1500 BLOOD: Blood Culture - RES 11/18 151 EXTREMITIE: Gross Specimen Examination - RES STAPH AUREUS 11/18 1510 EXTREMITIE: Gram Stain - RES 11/18 599 URINE ROUT: Urine Culture - COMP 11/18 2255 BLOOD: Blood Culture - RES METH RESIST STAPH AUREUS 11/18 2243 BLOOD: Blood Culture - COMP METH RESIST STAPH AUREUS Vital Signs Date Time Temp Pulse Resp B/P B/P Pulse O2 O2 Flow FiO2 Mean Ox Delivery Rate 11/20 1435 97.7 68 20 110/64 96 11/20 0817 71 142/58 11/20 0811 58 142/58 11/20 0620 98.5 61 20 128/64 92 Room Air 11/20 2235 98.1 64 20 130/60 94 Room Air
[2017-11-20 22:07] VITALS: BP 140/78
[2017-11-21 06:20] VITALS: BP 140/62
--- NOTE | 2017-11-21 07:57 | PN- Housestaff ---
Subjective Follow-up For: #Osteomyelitis of right second MTP status post debridement #SHIRA and CKD Subjective: FSG [id number]. Patient reports he is concerned with his high blood glucose. He reports his FSG at home runs 110-140s and does not usually have high insulin requirements after his 30 units lantus Review of Systems Constitutional: Reports: see HPI. Objective Last 24 Hrs of Vital Signs/I&O Vital Signs Date Time Temp Pulse Resp B/P B/P Pulse O2 O2 Flow FiO2 Mean Ox Delivery Rate 11/21 06 98.4 67 20 140/62 97 Room Air 11/20 2207 98.1 63 21 140/78 96 11/20 1435 97.7 68 20 110/64 96 Intake & Output 11/21 1600 11/21 0800 11/21 0000 Intake Total 600 850 Output Total 1200 Balance -600 850 Intake, IV 600 250 Intake, Oral 0 600 Output, Urine 1200 Patient 196 lb Weight Physical Exam General Appearance: Alert, Oriented X3, Cooperative, No Acute Distress Cardiovascular: Regular Rate, Normal S1, Normal S2 Lungs: Clear to Auscultation, Normal Air Movement Abdomen: Normal Bowel Sounds, Soft, No Tenderness Extremities: R foot dressing intact with minimal drainage Current Medications: Current Medications Sig/Ira Start time Last Medication Dose Route Stop Time Status Admin Acetaminophen 500 MG .STK-MED ONE 11/20 2101 DC PO 11/20 2102 Acetaminophen 650 MG .STK-MED ONE 11/20 2101 DC PO 11/20 2102 Acetaminophen 650 MG Q6P PRN 11/18 0245 AC 11/20 PO 2101 Alprazolam 0.5 MG DAILY NEEDED PRN 11/18 0300 AC 11/20 PO 11/25 0259 1639 Amiodarone HCl 100 MG DAILY 11/18 09 AC 11/20 PO 08 Apixaban 5 MG BID 11/19 0800 AC 11/20 PO 2051 Atorvastatin Calcium 10 MG DAILY 11/18 0900 AC 11/20 PO 08 Calcitriol 0.25 MCG DAILY 11/19 1159 AC 11/20 PO 08 Calcium Carbonate 500 MG TID 11/19 1400 AC 11/20 PO 2051 Cholecalciferol 2,000 IU DAILY 11/19 1200 AC 11/20 PO 0811 Dextrose/Sodium 1,000 ML Q13H 11/21 0115 AC 11/21 Chloride IV 0109 Dipyridamole 50 MG ONE /21 0830 DC Dextrose/Water 30 ML IV 11/21 0831 Escitalopram Oxalate 20 MG DAILY 11/20 0900 AC 11/20 PO 0810 Insulin Aspart 2 UNITS ONCE ONE 11/20 2130 DC 11/20 SC 11/20 2131 2140 Insulin Aspart 0 TIDAC 11/19 0800 DC 11/20 SC 1635 Insulin Detemir 12 UNITS DAILY 11/18 0900 AC 11/20 SC 0818 Insulin Human Regular 0 Q6 11/21 0600 AC 11/21 SC 0637 Metoprolol Succinate 12.5 MG DAILY 11/18 0900 AC 11/20 PO 0817 Mycophenolate Mofetil 1,000 MG BID 11/18 0900 AC 11/21 PO 0817 Nystatin 1 REBECCA BID 11/20 1845 AC 11/20 TOP 2140 Omeprazole 20 MG DAILY AC 11/18 0700 AC 11/21 PO 0545 Ramelteon 8 MG AT BEDTIME 11/19 2100 AC 11/20 PO 205 Tacrolimus 2 MG 0811/19 0800 AC 11/21 PO 0817 Tacrolimus 3 MG 0800 11/19 0800 AC 11/21 PO 0817 Vancomycin HCl 1,000 MG 2300 11/18 2300 AC 11/20 Sodium Chloride 250 ML IV 2140 Last 24 Hrs of Lab/Joel Results Last 24 Hrs of Labs/Mics: Laboratory Tests 11/21/17 0540: Anion Gap 11, Estimated GFR 43 L, BUN/Creatinine Ratio 24.4, CBC w Diff Pending , WBC Pending, RBC Pending, Hgb Pending, Hct Pending, MCV Pending, MCH Pending, MCHC Pending, RDW Pending, Plt Count Pending, MPV Pending Assessment/Plan Assessment: Mr. Edouard is a 71-year-old male presented to ED with fever, chills and nausea with past medical history of significant for ESRD status post renal transplant on tacrolimus and CellCept, paroxysmal atrial fibrillation on Eliquis, HTN, HLD, CVA, DM, osteomyelitis of the right distal phalanx of the right great toe status post partial amputation 09/09/17 with positive pathology for osteomyelitis, blood and OR culture growing Escherichia coli, Citrobacter and MRSA, wound had clean margins Problem list: #Osteomyelitis of right second MTP status post debridement #SHIRA and CKD Plan: * NPO for stress tesing as per Cardio * Continue vancomycin * Continue tacrolimus and CellCept * [id number] scale NovoLog insulin * Continue Eliquis, amiodarone, metoprolol for PAF * Echo pending * Appreciate podiatry, ID, vascular surgery, nephrology, cardio recommendations * Endo consult for uncontrolled DM Code-full code Diet-diabetic diet Problem List: 1. Osteomyelitis Pain Ratin Pain Location: NA Pain Goal: Remain pain free Pain Plan: NA Tomorrow's Labs & Rationales: BEP
[2017-11-21 08:43] LABS: ABSOLUTE BASOPHIL COUNT 0 /CUMM (0.0-0.2); ABSOLUTE EOSINOPHIL COUNT 0.2 /CUMM (0.0-0.7); ABSOLUTE GRANULOCYTE CT 4.3 /CUMM (1.4-6.5); ABSOLUTE LYMPH COUNT 0.6 /CUMM (1.2-3.4); ABSOLUTE MONOCYTE COUNT 0.5 /CUMM (0.10-0.60); BASOPHIL % 0.6 % (0.0-2.0); EOSINOPHIL % 3.8 % (0-5); GRANULOCYTE % 75.5 % (42.2-75.2); HEMATOCRIT 25.8 % (42-52); MEAN CORPUSCULAR HGB 26.5 PG (27.0-31.0); MEAN CORPUSCULAR HGB CONC 32.6 G/DL (33.0-37.0); MEAN CORPUSCULAR VOLUME 81.4 FL (80.0-94.0); MEAN PLATELET VOLUME 8.3 FL (7.4-10.4); PLATELET COUNT 286 /CUMM (130-400); RBC DISTRIBUTION WIDTH 17.5 % (11.5-14.5); RED BLOOD CELL CT 3.17 /CUMM (4.70-6.10)
--- NOTE | 2017-11-21 09:49 | Cons- Endocrinology ---
General Information and HPI Consulting Request Date of Consult: 11/21/17 Requested By: medical team Reason for Consult: uncontrolled diabetes Source of Information: patient, old records Exam Limitations: no limitations History of Present Illness: This 71-year-old male has a known history of diabetes for the past 30 years. At home he was on Lantus 28 units once a day and Humalog before meals. He states he did not take his Humalog unless his sugar was above 150 even if he was going to eat. The patient came to the hospital because he developed a fever and was not feeling well. He has an infection in his right foot. He was taken to the operating room last Tuesday by Dr. Dye. He is already had some toe amputations involving that foot. The patient has severe complications from his diabetes. He has renal transplant for nephropathy, and also has had retinopathy with laser treatment to his eyes. He has known macular degeneration. His last visit to [facility] was September 2016 for osteomyelitis and he went to short-term rehab after that and was discharged just 2 weeks ago. He was on long-term antibiotic therapy. The patient has a known history of atrial fibrillation and is on amiodarone. He is scheduled for a stress test today. Allergies/Medications Allergies: Coded Allergies: NO KNOWN ALLERGIES (NONE 09/09/17) Home Med List: Alprazolam 0.5 MG TABLET 1 TAB PO DAILY PRN Anxiety (Reported) Amiodarone (Cordarone) 200 MG TAB 0.5 TAB PO DAILY A.fib (Reported) Apixaban (Eliquis) 5 MG TABLET 1 TAB PO BID Blood Thinner (Reported) Atorvastatin Calcium 10 MG TABLET 1 TAB PO DAILY cholesterol (Reported) Bupropion HCl 100 MG TABLET 1 TAB PO DAILY pain (Reported) Calcitriol 0.25 MCG CAPSULE Bone health (Reported) Calcium (Elemental-Fr Calcarb) (Calcium Antacid) 400 MG CALCIUM (1,000 MG) TAB.CHEW 1,000 MG PO TID Supplement (Reported) Cholecalciferol (Vitamin D3) (Vitamin D-3) 2,000 UNIT TABLET 1 TAB PO DAILY Supplement (Reported) Coenzyme Q10 100 MG CAPSULE 1 CAP PO DAILY Supplement (Reported) Escitalopram Oxalate (Lexapro) 20 MG TABLET 1 TAB PO QPM Anxiety (Reported) Fludrocortisone Acetate 0.1 MG TABLET 1 TAB PO DAILY SUPPLEMENT (Reported) Hydroxychloroquine Sulfate 200 MG TABLET 1 TAB PO DAILY . (Reported) Insulin Glargine,Hum.rec.anlog (Lantus Solostar) 100 UNIT/ML (3 ML) INSULN.PEN 30 UNIT SC DAILY AC Blood sugar (Reported) 26 U daily Insulin Lispro (Humalog) 100 UNIT/ML CARTRIDGE 0 SC TIDAC/HS Blood sugar ( Reported) Please take as follow:\ Blood sugar 80-150 mg/dl: none 151-200 mg/dl: 2 U 201-250 mg/dl: 4 U 251-300 mg/dl: 6 U 301-350 mg/dl: 8 U 351-400 mg/dl: 10 U more than 401 mg/dl: 12 U and call Metoprolol Succ XL (Toprol XL) 25 MG TAB 0.5 TAB PO DAILY HEART HEALTH ( Reported) Mycophenolate Mofetil (Cellcept) 500 MG TABLET 1 TAB PO BID KIDNEY TRANSPLANT Omeprazole 20 MG CAPSULE.DR 1 TAB PO DAILY GI Tacrolimus (Envarsus XR) 4 MG TAB.ER.24H 5 MG PO DAILY 1000 Transplant Vit A,C & E/Lutein/Minerals (Ocuvite With Lutein Tablet) 1,000-60-2 TABLET 1 TAB PO DAILY Supplement (Reported) Current Medications: Current Medications Sig/Ira Start time Last Medication Dose Route Stop Time Status Admin Acetaminophen 500 MG .STK-MED ONE 11/20 2101 DC PO 11/20 2102 Acetaminophen 650 MG .STK-MED ONE 11/20 2101 DC PO 11/20 2102 Acetaminophen 650 MG Q6P PRN 11/18 0245 AC 11/20 PO 2101 Alprazolam 0.5 MG DAILY NEEDED PRN 11/18 0300 AC 11/20 PO 11/25 0259 1639 Amiodarone HCl 100 MG DAILY 11/18 09 AC 11/20 PO 08 Apixaban 5 MG BID 11/19 0800 AC 11/20 PO 2051 Atorvastatin Calcium 10 MG DAILY 11/18 0900 AC 11/20 PO 08 Calcitriol 0.25 MCG DAILY 11/19 1159 AC 11/20 PO 08 Calcium Carbonate 500 MG TID 11/19 1400 AC 11/20 PO 2051 Cholecalciferol 2,000 IU DAILY 11/19 1200 AC 11/20 PO 08 Dextrose/Sodium 1,000 ML Q13H 11/21 0115 AC 11/21 Chloride IV 0109 Dipyridamole 50 MG ONE ONE 11/21 0830 DC Dextrose/Water 30 ML IV 11/21 0831 Escitalopram Oxalate 20 MG DAILY 11/20 0900 AC 11/20 PO 0810 Insulin Aspart 2 UNITS ONCE ONE 11/20 2130 DC 11/20 SC 11/20 213 2140 Insulin Aspart 0 TIDAC 11/19 0800 DC 11/20 SC 1635 Insulin Detemir 12 UNITS DAILY 11/18 0900 AC 11/20 SC 0818 Insulin Human Regular 0 Q6 11/21 0600 AC 11/21 SC 0637 Metoprolol Succinate 12.5 MG DAILY 11/18 0900 AC 11/20 PO 0817 Mycophenolate Mofetil 1,000 MG BID 11/18 0900 AC 11/21 PO 0817 Nystatin 1 REBECCA BID 11/20 1845 AC 11/20 TOP 2140 Omeprazole 20 MG DAILY AC 11/18 0700 AC 11/21 PO 0545 Ramelteon 8 MG AT BEDTIME 11/19 2100 AC 11/20 PO 205 Tacrolimus 2 MG 0811/19 0800 AC 11/21 PO 0817 Tacrolimus 3 MG 0800 11/19 0800 AC 11/21 PO 0817 Vancomycin HCl 1,000 MG 2300 11/18 2300 AC 11/20 Sodium Chloride 250 ML IV 214 Review of Systems Review of Systems Constitutional: Denies: chills, fever. Cardiovascular: Denies: chest pain. Respiratory: Denies: cough, short of breath. Genitourinary: Denies: dysuria. Skin: Reports: lesions (RIGHT FOOT). 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 EENT: cataracts, hearing loss, macular degeneration Cardiovascular: AFIB, hypertension, hyperlipidemia, AFIB (ON COUMADIN) postural hypotension Respiratory: NONE Gastrointestinal: GERD Hepatic: hepatitis in the past Renal: renal transplant, patient was on hemodialysis from 2003 until 2014 when he underwent a successful donor transplant Musculoskeletal: fracture, R ARM FRACTURE vitamin D deficiency Psychiatric: NONE Endocrine: diabetes type 2 Blood Disorders: NONE Cancer(s): NONE RIGGER THIRD/Reproductive: NONE Other Medical Hx: Bilateral carpal tunnel syndrome Surgical History Surgical History: cataract removal, RENAL TRANSPLANT right and left toe amputations secondary to IDDM aVF left middle toe amputation right great toe amputation ruptured appendix with peritonitis Family History Relations & Conditions If Any: MOTHER FH: diabetes mellitus Myasthenia gravis FATHER FH myocardial infarction male first degree age known FH: diabetes mellitus Relation not specified for: *No pertinent family history Psychosocial History Where Do You Live? Home Services at Home: Home Health Aide Smoking Status: Former Smoker Exam & Diagnostic Data Last 24 Hrs of Vital Signs/I&O Vital Signs Date Time Temp Pulse Resp B/P B/P Pulse O2 O2 Flow FiO2 Mean Ox Delivery Rate 11/21 0620 98.4 67 20 140/62 97 Room Air 11/20 2207 98.1 63 21 140/78 96 11/20 1435 97.7 68 20 110/64 96 Intake & Output 11/21 1600 11/21 0800 11/21 0000 Intake Total 600 850 Output Total 1200 Balance -600 850 Intake, IV 600 250 Intake, Oral 0 600 Output, Urine 1200 Patient 196 lb Weight Physical Exam General Appearance: alert, awake Assessment/Plan Assessment/Plan This patient has diabetes mellitus with severe complications. He was on Lantus 28 units at home as well as sliding scale Humalog. He came into the hospital with evidence of infection in his foot. His sugars have been running somewhat high. The patient is presently on Humulin regular coverage every 6 hours and D5 half- normal saline at 75 cc/h because he is n.p.o. awaiting a stress test. His blood sugar is high. Review of the sugars over the past few days reveal that he needs further adjustment of his insulin regimen when he is on his diet. When the patient is eating again we should adjust his insulin. The patient should be on Levemir 14 units twice a day. We also need to adjust his NovoLog sliding scale before meals. NovoLog sliding scale before meals should be 80-150 give 3 units NovoLog, 151-200 give 4 units NovoLog, 201-250 give 5 units NovoLog , 251-300 give 6 units NovoLog, 301-350 give 7 units NovoLog, 351-400 give 8 units NovoLog. A separate bedtime sliding scale NovoLog should be written. Sliding scale NovoLog at bedtime should be less than 250 give no insulin, 251-300 give 2 units NovoLog, 301 08/06/1948 give 3 units NovoLog, 3 5104 100 give 4 units NovoLog. Consult Acknowledgment - Thank you for your consult request.
[2017-11-21 10:07] LABS: WHITE BLOOD CELL COUNT 5.7 /CUMM (4.8-10.8)
--- NOTE | 2017-11-21 14:06 | PN- Pulmonary ---
Subjective HPI/Critical Care Issues: Doing ok afebrile stable Objective Current Medications: Current Medications Sig/Ira Start time Last Medication Dose Route Stop Time Status Admin Acetaminophen 500 MG .STK-MED ONE 11/20 2101 DC PO 11/20 2102 Acetaminophen 650 MG .STK-MED ONE 11/20 2101 DC PO 11/20 2102 Acetaminophen 650 MG Q6P PRN 11/18 0245 AC 11/20 PO 210 Alprazolam 0.5 MG DAILY NEEDED PRN 11/18 0300 AC 11/20 PO 11/25 0259 1639 Amiodarone HCl 100 MG DAILY 11/18 0900 AC 11/20 PO 0811 Apixaban 5 MG BID 11/19 0800 AC 11/20 PO 2051 Atorvastatin Calcium 10 MG DAILY 11/18 09 AC 11/20 PO 08 Calcitriol 0.25 MCG DAILY 11/19 1159 AC 11/20 PO 0811 Calcium Carbonate 500 MG TID 11/19 1400 AC 11/20 PO 2051 Cholecalciferol 2,000 IU DAILY 11/19 1200 AC 11/20 PO 0811 Dextrose/Sodium 1,000 ML Q13H 11/21 0115 DC 11/21 Chloride IV 0109 Dipyridamole 50 MG ONE ONE 11/21 0830 DC Dextrose/Water 30 ML IV 11/21 0831 Escitalopram Oxalate 20 MG DAILY 11/20 0900 AC 11/20 PO 0810 Insulin Aspart 0 AT BEDTIME 11/21 2100 AC SC Insulin Aspart 0 TIDAC 11/21 1700 AC SC Insulin Aspart 2 UNITS ONCE ONE 11/20 2130 DC 11/20 SC 11/20 2131 2140 Insulin Aspart 0 TIDAC 11/19 0800 DC 11/20 SC 1635 Insulin Detemir 14 UNITS DAILY 11/22 0900 AC SC Insulin Detemir 12 UNITS DAILY 11/18 0900 DC 11/21 SC 1244 Insulin Human Regular 0 Q6 11/21 0600 DC 11/21 SC 1243 Metoprolol Succinate 12.5 MG DAILY 11/18 0900 AC 11/20 PO 0817 Mycophenolate Mofetil 1,000 MG BID 11/18 0900 AC 11/21 PO 0817 Nystatin 1 REBECCA BID 11/20 1845 AC 11/20 TOP 2140 Omeprazole 20 MG DAILY AC 11/18 0700 AC 11/21 PO 0545 Ramelteon 8 MG AT BEDTIME 11/19 2100 AC 11/20 PO 2051 Tacrolimus 5 MG 11/22 0800 AC PO Tacrolimus 2 MG 11/19 0800 DC 11/21 PO 08 Tacrolimus 3 MG 11/19 0800 DC 11/21 PO 0817 Vancomycin HCl 1,000 MG 2300 11/18 2300 AC 11/20 Sodium Chloride 250 ML IV 2140 Vital Signs & I&O Last 24 Hrs of Vitals and I&O: Vital Signs Date Time Temp Pulse Resp B/P B/P Pulse O2 O2 Flow FiO2 Mean Ox Delivery Rate 11/21 06 98.4 67 20 140/62 97 Room Air 11/20 2207 98.1 63 21 140/78 96 11/20 1435 97.7 68 20 110/64 96 Intake & Output 11/21 1600 11/21 0800 11/21 0000 Intake Total 600 850 Output Total 350 1200 Balance -350 -600 850 Intake, IV 600 250 Intake, Oral 0 600 Output, Urine 350 1200 Patient 196 lb Weight Impression/Plan Impression/Plan Impression/Plan: Head: atraumatic, normal appearance Eyes:Bilateral: normal appearance, PERRL, EOMI. Ears, Nose, Throat: normal pharynx, normal ENT inspection, hearing grossly normal Neck: normal inspection, supple, full range of motion, no midline tenderness Respiratory: normal breath sounds, chest non-tender, no respiratory distress, quiet respiration, lungs clear Cardiovascular: normal peripheral pulses, irregularly irregular, norml femoral pulses equa Peripheral Pulses: 4+ carotid (R), 4+ carotid (L) Gastrointestinal: normal bowel sounds, soft, non-tender, no organomegaly Back: normal inspection, normal range of motion, no vertebral tenderness Extremities: no edema, pelvis stable, dressing with with chronic nonhealing ulcer seen Neurologic/Psych: normal Reflexes:2+: bicep (R), bicep (L). Lymphatic: no anterior cervical adenavf intact IMPRESSION This is a gentleman with s/p renal transplant on immunosupp with initial infected toe with osteo s/p previous surg, previous mrsa bacteremia, DM with * Recurrent MRSA sepsis and Recurrent osteo and infected foot who was recently on prolonged abx and multiple surgeries now with ongoing osteo and cellulitis * Previous neutopenia and anemia - was on neupogen / and initially thought to be due to vanco aswell and was on dapto * DM, autonomic neuropathy, gastropathy, pvd * Previous MRI showing very small punctate lesions prob ateromatous small emboli , on anticoag, and statin * PT with Pafib in Sinus and sig atheromatous aorta, small pfo, - on eloquis * H/o of Prolonged qtc, previous low mag need to continue to monitor * SHIRA with CKD s/p renal transplant, creat now up to 1.8 * DM insulin requiring * PVD, previous history of stoke, and previous toe amputation, now angioplasty of the lower limb with recent amputations * Previous secondary hyperparathyroid. Sig autonomic dysfunction was on fludocortisone * Pafib on eliquis (in sinus on amiodarone) (being dosed for renal function) * Depression and anxiety * Peripheral neuropathy REC * IV abx per ID * Order ECHO and ask ID about the line (to see if this needs to be pulled or replaced) * Cont tacrolimus and mycophenolate * Rpt Tacrolimus level in am * Follow wbc and hgb * Send tacroimus level on tuesday * COnt abx / ID note appretiated * COnt all meds * HOld apixaban and restart heparin without bolus in anticipation of surg * ID and Podiatry, vascular, and cardio consult * Hold eloquis and transition to heparin in am without bolus * Keep sugars around 150, follow endo notes, dc ivf if Fsg and follow closely
[2017-11-21 14:40] VITALS: BP 135/80
--- NOTE | 2017-11-21 16:49 | IV DIPYRIDAMOLE NUCLEAR STRESS ---
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 Baseline B/P 170/70. The patient received 50 mg of dipyridamole infused intravenously over a 4 minute period. TC99M Myoview was injected after dipyridamole infusion. The patient tolerated the infusion well. There were no EKG changes seen following pharmacologic infusion. Arrhythmias: None IMPRESSION: The test was supervised by the interpreting Child Care Group Leader, who was in attendance during the entire test. No EKG evidence of stress induced myocardial ischemia. See separately dictated Nuclear Report.
--- NOTE | 2017-11-21 16:51 | PN- Infect Dx ---
Subjective Subjective: Afebrile. He notes a mild headache. He has no pain in the right foot. Objective Last 24 Hrs of Vital Signs/I&O Vital Signs Date Time Temp Pulse Resp B/P B/P Pulse O2 O2 Flow FiO2 Mean Ox Delivery Rate 11/21 1440 98.0 68 20 135/80 96 Room Air 11/21 1413 140/62 11/21 1413 140/62 11/21 0620 98.4 67 20 140/62 97 Room Air 11/20 2207 98.1 63 21 140/78 96 Intake & Output 11/21 1600 11/21 0800 11/21 0000 Intake Total 780 600 850 Output Total 900 1200 Balance -120 -600 850 Intake, IV 300 600 250 Intake, Oral 480 0 600 Output, Urine 900 1200 Patient 196 lb Weight Physical Exam Other Physical Findings: He appears comfortable in no acute distress Chest Pro-Line in the right upper chest with no inflammation at the site Lungs are clear Heart regular rhythm with no murmur Extremities right foot dressing intact Results Last 24 Hours of Lab Results: Laboratory Tests 11/21 0540 Chemistry Sodium (137 - 145 mmol/L) 137 Potassium (3.5 - 5.1 mmol/L) 4.9 Chloride (98 - 107 mmol/L) 102 Carbon Dioxide (22 - 30 mmol/L) 24 Anion Gap (5 - 16) 11 BUN (9 - 20 mg/dL) 39 H Creatinine (0.7 - 1.2 mg/dL) 1.6 H Estimated GFR (>60 ml/min) 43 L BUN/Creatinine Ratio (7 - 25 %) 24.4 Hematology CBC w Diff NO MAN DIFF REQ WBC (4.8 - 10.8 /CUMM) 5.7 RBC (4.70 - 6.10 /CUMM) 3.17 L Hgb (14.0 - 18.0 G/DL) 8.4 L Hct (42 - 52 %) 25.8 L MCV (80.0 - 94.0 FL) 81.4 MCH (27.0 - 31.0 PG) 26.5 L MCHC (33.0 - 37.0 G/DL) 32.6 L RDW (11.5 - 14.5 %) 17.5 H Plt Count (130 - 400 /CUMM) 286 MPV (7.4 - 10.4 FL) 8.3 Gran % (42.2 - 75.2 %) 75.5 H Lymphocytes % (20.5 - 51.1 %) 10.5 L Monocytes % (1.7 - 9.3 %) 9.6 H Eosinophils % (0 - 5 %) 3.8 Basophils % (0.0 - 2.0 %) 0.6 Absolute Granulocytes (1.4 - 6.5 /CUMM) 4.3 Absolute Lymphocytes (1.2 - 3.4 /CUMM) 0.6 L Absolute Monocytes (0.10 - 0.60 /CUMM) 0.5 Absolute Eosinophils (0.0 - 0.7 /CUMM) 0.2 Absolute Basophils (0.0 - 0.2 /CUMM) 0 Toxicology Tacrolimus Pending Last 24 Hours of Joel Results: Blood cultures November 17 positive for MRSA Blood cultures November 19 negative OR culture November 18 labeled right second toe positive for MRSA Urine culture November 18 negative Assessment/Plan ID Impression: Recurrent MRSA sepsis, presumably secondary to the infection in his right foot, status post open partial second ray resection of the right foot 3 days ago for gas gangrene/osteomyelitis, with his temperatures and white blood cell count normal on Vancomycin Day 3. There was a question of a vegetation on his transthoracic echocardiogram on his last hospitalization, but the TESS was negative; nevertheless, given his recurrent bacteremia, this will again need to be ruled out. Of note he did develop neutropenia and renal insufficiency on his recent hospitalization, felt possibly secondary to Vancomycin and prompting a change to Daptomycin; therefore he will need to be closely monitored for any adverse reactions that might be attributed to the Vancomycin. A right BKA was recommended on his recent hospitalization and will again need to be considered as it appears unlikely that his foot will heal without this. Suggestion: 1. Follow-up echocardiogram 2. Further management of his right foot per Podiatry and Vascular surgery 3. Vancomycin trough level with his next dose 4. Continue Vancomycin with close monitoring of his white blood cell count and creatinine
--- NOTE | 2017-11-21 17:47 | NUCLEAR MEDICINE REPORT ---
PERSANTINE STRESS AND RESTING SPECT MYOCARDIAL PERFUSION IMAGING STUDY WITH GATED SPECT IMAGES: CLINICAL INDICATION: History CAD. PROCEDURE: Regional myocardial perfusion was assessed using a 1 day protocol. Stress images were obtained on 11/21/2017 following the intravenous administration of 18.1 mCi Tc 99m Myoview. Stress consisted of 50 mg Persantine given intravenously. Following the sestamibi injection, no aminophylline was given intravenously. Rest images were obtained 11/21/2017 following the intravenous administration of 28.7 mCi Technetium 99m Myoview. Single photon emission tomographic (SPECT) images were obtained. SPECT images were acquired in a 64 x 64 matrix of 64 projections over 180 degrees. These were reconstructed into standard short axis, horizontal and vertical long axis cardiac projections. FINDINGS: The post stress images demonstrate the left ventricular chamber to be normal in size. There is homogeneous distribution of activity in the left ventricular myocardium with no regions of abnormally decreased activity noted. The resting images also demonstrate homogeneous distribution of activity in the left ventricular myocardium, and are not significantly changed from the post stress images. The images were obtained using a gated SPECT technique, which permits visualization of wall motion and calculation of the left ventricular ejection fraction. No left ventricular wall motion abnormalities are noted on either the stress or resting study. The calculated left ventricular ejection fraction is 53% on the stress study. No previous study is available for comparison. IMPRESSION: Normal Persantine stress and resting myocardial perfusion study with normal left ventricular wall motion and ejection fraction.
--- NOTE | 2017-11-21 18:07 | PN- Podiatry ---
Subjective Subjective: Patient seen at bedside with no new acute complaints. Patient denies right foot pain. Objective Vital Signs and I&Os Vital Signs Date Time Temp Pulse Resp B/P B/P Pulse O2 O2 Flow FiO2 Mean Ox Delivery Rate 11/21 1440 98.0 68 20 135/80 96 Room Air 11/21 1413 140/62 11/21 1413 140/62 11/21 0620 98.4 67 20 140/62 97 Room Air 11/20 2207 98.1 63 21 140/78 96 Intake & Output 11/21 1600 11/21 0800 11/21 0000 11/20 1600 11/20 0800 11/20 0000 Intake Total 780 600 850 720 280 Output Total 900 1200 1025 300 Balance -120 -600 850 720 -745 -300 Intake, IV 300 600 250 280 Intake, Oral 480 0 600 720 Number 0 Bowel Movements Output, Urine 900 1200 1025 300 Patient 196 lb 188 lb Weight Weight Bed scale Measurement Method Physical Exam: Dressing right foot clean, dry and intact. No strikethrough identified. Assessment/Plan Assessment/Plan Right foot osteomyelitis status post open partial second ray resection. Discussed options with patient at bedside, including a transmetatarsal amputation versus BKA. Patient is amenable to a TMA, however he states that he would like to sort out a few personal issues prior to the surgery. We will tentatively schedule the patient for surgery on Tuesday. Attending MD Review Statement Attending Statement Attending MD Statement: examined this patient
[2017-11-21 19:04] LABS: PTT 33 SEC (25-37)
[2017-11-21 22:36] VITALS: BP 110/60
[2017-11-22 02:30] LABS: PTT 36 SEC (25-37)
[2017-11-22 06:50] VITALS: BP 118/66
--- NOTE | 2017-11-22 08:01 | PN- Diabetes ---
Assessment/Plan Diabetes Assessment: Feels okay this morning. He had a stress test yesterday. He received 12 units of Levemir after the stress test was done. He is on sliding scale NovoLog which was adjusted yesterday before meals and also a separate sliding scale at bedtime. The patient's fingerstick sugar before breakfast this morning is 203. His Levemir dosage was recommended to be 14 units twice a day but was written as just 14 units once a day in the morning. Plan: Suggest increase Levemir to 14 units twice a day. NovoLog sliding scale before meals and at bedtime should stay as written. We need to observe his sugars today while he is in the hospital before making any further adjustments. Subjective Subjective: Feels okay Review of Systems Constitutional: Denies: chills, fever. Cardiovascular: Denies: chest pain. Respiratory: Denies: cough, short of breath. Gastrointestinal: Denies: abdominal pain. Skin: Reports: no symptoms. Objective Last 24 Hrs of Vital Signs/I&O Vital Signs Date Time Temp Pulse Resp B/P B/P Pulse O2 O2 Flow FiO2 Mean Ox Delivery Rate 11/22 0650 97.3 62 20 118/66 97 Room Air 11/22 2235 98.0 62 20 110/60 96 11/21 1440 98.0 68 20 135/80 96 Room Air 11/21 1413 140/62 11/21 1413 140/62 Intake & Output 11/22 0811/22 0000 11/21 1600 Intake Total 938 860 780 Output Total 700 900 Balance 238 860 -120 Intake, IV 438 160 300 Intake, Oral 500 700 480 Output, Urine 700 900 Patient 194 lb 190 lb Weight Weight Bed scale Measurement Method Vital Signs Date Time Temp Pulse Resp B/P B/P Pulse O2 O2 Flow FiO2 Mean Ox Delivery Rate 11/22 0650 97.3 62 20 118/66 97 Room Air 11/216 98.0 62 20 110/60 96 11/21 1440 98.0 68 20 135/80 96 Room Air 11/21 1413 140/62 11/21 1413 140/62 Intake & Output 11/22 0811/22 0000 11/21 1600 Intake Total 938 860 780 Output Total 700 900 Balance 238 860 -120 Intake, IV 438 160 300 Intake, Oral 500 700 480 Output, Urine 700 900 Patient 194 lb 190 lb Weight Weight Bed scale Measurement Method Physical Exam General Appearance: alert, awake Head: normal appearance Neck: normal inspection Cardiovascular: regular rate/rhythm Abdomen: normal bowel sounds Extremities: right foot bandaged Current Medications: Current Medications Sig/Ira Start time Last Medication Dose Route Stop Time Status Admin Acetaminophen 650 MG .STK-MED ONE 11/21 1618 DC PO 11/21 1619 Acetaminophen 650 MG Q6P PRN 11/18 0245 AC 11/21 PO 1620 Alprazolam 0.5 MG DAILY NEEDED PRN 11/18 0300 AC 11/21 PO 11/25 0259 1626 Amiodarone HCl 100 MG DAILY 11/18 0900 AC 11/21 PO 1413 Apixaban 5 MG BID 11/19 0800 DC 11/21 PO 1413 Atorvastatin Calcium 10 MG DAILY 11/18 0900 AC 11/21 PO 1413 Calcitriol 0.25 MCG DAILY 11/19 1159 AC 11/21 PO 1413 Calcium Carbonate 500 MG TID 11/19 1400 AC 11/21 PO 2020 Cholecalciferol 2,000 IU DAILY 11/19 1200 AC 11/21 PO 1412 Dextrose/Sodium 1,000 ML Q13H 11/21 0115 DC 11/21 Chloride IV 0109 Dipyridamole 50 MG ONE ONE 11/21 0830 DC Dextrose/Water 30 ML IV 11/21 0831 Escitalopram Oxalate 20 MG DAILY 11/20 0900 AC 11/21 PO 1412 Heparin Sodium 5,200 UNIT ONCE ONE 11/22 0310 DC 11/22 (Porcine) IV 11/22 0311 0331 Heparin Sodium 25,000 UNIT Q24H 11/21 1645 AC 11/22 (Porcine) IV 0332 Sodium Chloride 500 ML Insulin Aspart 0 AT BEDTIME 11/21 2100 AC SC Insulin Aspart 0 TIDAC 11/21 1700 AC 11/21 SC 1813 Insulin Detemir 14 UNITS DAILY 11/22 0900 DC SC Insulin Detemir 14 UNITS BID 11/22 0900 AC SC Insulin Detemir 12 UNITS DAILY 11/18 0900 DC 11/21 SC 1244 Insulin Human Regular 0 Q6 11/21 0600 DC 11/21 SC 1243 Metoprolol Succinate 12.5 MG DAILY 11/18 0900 AC 11/21 PO 1413 Mycophenolate Mofetil 1,000 MG BID 11/18 0900 AC 11/21 PO 2020 Nystatin 1 REBECCA BID 11/20 1845 AC 11/21 TOP 2019 Omeprazole 20 MG DAILY AC 11/18 0700 AC 11/22 PO 06 Ramelteon 8 MG AT BEDTIME 11/19 2100 AC 11/21 PO 2019 Tacrolimus 5 MG 0800 11/22 0800 AC PO Tacrolimus 2 MG 0800 11/19 0800 DC 11/21 PO 0817 Tacrolimus 3 MG 0811/19 0800 DC 11/21 PO 0817 Vancomycin HCl 1,000 MG 2300 11/18 2300 AC 11/21 Sodium Chloride 250 ML IV 2246 Findings Pertinent Lab/Joel Results: Laboratory Tests 11/22 11/22 11/21 0630 0130 1800 Chemistry Sodium Pending Potassium Pending Chloride Pending Carbon Dioxide Pending Anion Gap Pending BUN Pending Creatinine Pending BUN/Creatinine Ratio Pending Coagulation APTT (25 - 37 SEC) 36 33 Hematology CBC w Diff Pending WBC Pending RBC Pending Hgb Pending Hct Pending MCV Pending MCH Pending MCHC Pending RDW Pending Plt Count Pending MPV Pending
--- NOTE | 2017-11-22 08:18 | PN- Housestaff ---
Subjective Follow-up For: #Osteomyelitis of right second MTP status post debridement #SHIRA and CKD Subjective: FSG [id number]. Patient offers no complaints. Patient had a rapid response today after a fall in the bathroom. Denies head trauma, lightheadedness, nausea, vomiting, CP or SOB Review of Systems Constitutional: Reports: see HPI. Objective Last 24 Hrs of Vital Signs/I&O Vital Signs Date Time Temp Pulse Resp B/P B/P Pulse O2 O2 Flow FiO2 Mean Ox Delivery Rate 11/22 0650 97.3 62 20 118/66 97 Room Air 11/21 2236 98.0 62 20 110/60 96 11/21 1440 98.0 68 20 135/80 96 Room Air 11/21 1413 140/62 11/21 1413 140/62 Intake & Output 11/22 1600 11/22 0800 11/22 0000 Intake Total 938 860 Output Total 700 Balance 238 860 Intake, IV 438 160 Intake, Oral 500 700 Output, Urine 700 Patient 194 lb 190 lb Weight Weight Bed scale Measurement Method Physical Exam General Appearance: Alert, Oriented X3, Cooperative, No Acute Distress Cardiovascular: Regular Rate, Normal S1, Normal S2 Lungs: Clear to Auscultation, Normal Air Movement Abdomen: Normal Bowel Sounds, Soft, No Tenderness Current Medications: Current Medications Sig/Ira Start time Last Medication Dose Route Stop Time Status Admin Acetaminophen 650 MG .STK-MED ONE 11/21 1618 DC PO 11/21 1619 Acetaminophen 650 MG Q6P PRN 11/18 0245 AC 11/21 PO 1620 Alprazolam 0.5 MG DAILY NEEDED PRN 11/18 0300 AC 11/21 PO 11/25 0259 1626 Amiodarone HCl 100 MG DAILY 11/18 0900 AC 11/22 PO 0845 Apixaban 5 MG BID 11/19 0800 DC 11/21 PO 1413 Atorvastatin Calcium 10 MG DAILY 11/18 0900 AC 11/22 PO 0845 Calcitriol 0.25 MCG DAILY 11/19 1159 AC 11/22 PO 0849 Calcium Carbonate 500 MG TID 11/19 1400 AC 11/22 PO 0849 Cholecalciferol 2,000 IU DAILY 11/19 1200 AC 11/22 PO 0842 Dextrose/Sodium 1,000 ML Q13H 11/21 0115 DC 11/21 Chloride IV 0109 Escitalopram Oxalate 20 MG DAILY 11/20 0900 AC 11/22 PO 0844 Heparin Sodium 5,200 UNIT ONCE ONE 11/22 0310 DC 11/22 (Porcine) IV 11/22 0311 0331 Heparin Sodium 25,000 UNIT Q24H 11/21 1645 AC 11/22 (Porcine) IV 0332 Sodium Chloride 500 ML Insulin Aspart 0 AT BEDTIME 11/21 2100 AC SC Insulin Aspart 0 TIDAC 11/21 1700 AC 11/22 SC 0852 Insulin Detemir 14 UNITS DAILY 11/22 0900 DC SC Insulin Detemir 14 UNITS BID 11/22 0900 AC 11/22 SC 0853 Insulin Detemir 12 UNITS DAILY 11/18 0900 DC 11/21 SC 1244 Insulin Human Regular 0 Q6 11/21 0600 DC 11/21 SC 1243 Metoprolol Succinate 12.5 MG DAILY 11/18 0900 AC 11/22 PO 0849 Mycophenolate Mofetil 1,000 MG BID 11/18 0900 AC 11/22 PO 0843 Nystatin 1 REBECCA BID 11/20 1845 AC 11/22 TOP 0857 Omeprazole 20 MG DAILY AC 11/18 0700 AC 11/22 PO 0627 Ramelteon 8 MG AT BEDTIME 11/19 2100 AC 11/21 PO 2020 Tacrolimus 5 MG 0811/22 0800 AC 11/22 PO 0840 Tacrolimus 2 MG 0811/19 0800 DC 11/21 PO 0817 Tacrolimus 3 MG 0800 11/19 0800 DC 11/21 PO 0817 Vancomycin HCl 1,000 MG 2300 11/18 2300 AC 11/21 Sodium Chloride 250 ML IV 2246 Last 24 Hrs of Lab/Joel Results Last 24 Hrs of Labs/Mics: Laboratory Tests 11/22/17 0630: Sodium Pending, Potassium Pending, Chloride Pending, Carbon Dioxide Pending, Anion Gap Pending, BUN Pending, Creatinine Pending, BUN/Creatinine Ratio Pending , CBC w Diff Pending, WBC Pending, RBC Pending, Hgb Pending, Hct Pending, MCV Pending, MCH Pending, MCHC Pending, RDW Pending, Plt Count Pending, MPV Pending 11/22/17 0130: APTT 36 11/21/17 1800: APTT 33 Assessment/Plan Assessment: Mr. Edouard is a 71-year-old male presented to ED with fever, chills and nausea with past medical history of significant for ESRD status post renal transplant on tacrolimus and CellCept, paroxysmal atrial fibrillation on Eliquis, HTN, HLD, CVA, DM, osteomyelitis of the right distal phalanx of the right great toe status post partial amputation 09/09/17 with positive pathology for osteomyelitis, blood and OR culture growing Escherichia coli, Citrobacter and MRSA, wound had clean margins Problem list: #Osteomyelitis of right second MTP status post debridement #SHIRA and CKD Plan: * Stress tesing wnl * Continue vancomycin * Vancomycin trough level pending * Tacrolimis level pending for 930 am tomorrow 30 mins before dose * Continue tacrolimus and CellCept * Ximn-Egws-goaqhma scale NovoLog insulin * Continue amiodarone, metoprolol for PAF * We will continue IV Heparin until postop Tuesday then resume Apixaban thereafter as per Podiatry * Echo pending * Appreciate podiatry, ID, vascular surgery, nephrology, cardio recommendations * Endo consult for uncontrolled DM * TKA scheduled for Tuesday Code-full code Diet-diabetic diet Problem List: 1. Osteomyelitis Pain Ratin Pain Location: NA Pain Goal: Remain pain free Pain Plan: NA Tomorrow's Labs & Rationales: bep,cbc
[2017-11-22 08:50] LABS: ABSOLUTE BASOPHIL COUNT 0 /CUMM (0.0-0.2); ABSOLUTE EOSINOPHIL COUNT 0.3 /CUMM (0.0-0.7); ABSOLUTE GRANULOCYTE CT 4.1 /CUMM (1.4-6.5); ABSOLUTE LYMPH COUNT 0.6 /CUMM (1.2-3.4); ABSOLUTE MONOCYTE COUNT 0.4 /CUMM (0.10-0.60); BASOPHIL % 0.5 % (0.0-2.0); EOSINOPHIL % 5.2 % (0-5); GRANULOCYTE % 75.1 % (42.2-75.2); HEMATOCRIT 26.5 % (42-52); MEAN CORPUSCULAR HGB 26.6 PG (27.0-31.0); MEAN CORPUSCULAR HGB CONC 32.5 G/DL (33.0-37.0); MEAN CORPUSCULAR VOLUME 81.9 FL (80.0-94.0); MEAN PLATELET VOLUME 8.3 FL (7.4-10.4); PLATELET COUNT 323 /CUMM (130-400); RBC DISTRIBUTION WIDTH 17.2 % (11.5-14.5); RED BLOOD CELL CT 3.24 /CUMM (4.70-6.10); WHITE BLOOD CELL COUNT 5.5 /CUMM (4.8-10.8)
--- NOTE | 2017-11-22 09:37 | PN- Pulmonary ---
Subjective HPI/Critical Care Issues: Doing ok htn this am Objective Current Medications: Current Medications Sig/Ira Start time Last Medication Dose Route Stop Time Status Admin Acetaminophen 650 MG .STK-MED ONE 11/21 1618 DC PO 11/21 1619 Acetaminophen 650 MG Q6P PRN 11/18 0245 AC 11/21 PO 1620 Alprazolam 0.5 MG DAILY NEEDED PRN 11/18 0300 AC 11/21 PO 11/25 0259 1626 Amiodarone HCl 100 MG DAILY 11/18 0900 AC 11/22 PO 0845 Apixaban 5 MG BID 11/19 0800 DC 11/21 PO 1413 Atorvastatin Calcium 10 MG DAILY 11/18 09 AC 11/22 PO 0845 Calcitriol 0.25 MCG DAILY 11/19 1159 AC 11/22 PO 0849 Calcium Carbonate 500 MG TID 11/19 1400 AC 11/22 PO 0849 Cholecalciferol 2,000 IU DAILY 11/19 1200 AC 11/22 PO 0842 Dextrose/Sodium 1,000 ML Q13H 11/21 0115 DC 11/21 Chloride IV 0109 Escitalopram Oxalate 20 MG DAILY 11/20 0900 AC 11/22 PO 0844 Heparin Sodium 5,200 UNIT ONCE ONE 11/22 0310 DC 11/22 (Porcine) IV 11/22 0311 0331 Heparin Sodium 25,000 UNIT Q24H 11/21 1645 AC 11/22 (Porcine) IV 0332 Sodium Chloride 500 ML Insulin Aspart 0 AT BEDTIME 11/21 2100 AC SC Insulin Aspart 0 TIDAC 11/21 1700 AC 11/22 SC 0852 Insulin Detemir 14 UNITS DAILY 11/22 0900 DC SC Insulin Detemir 14 UNITS BID 11/22 0900 AC 11/22 SC 0853 Insulin Detemir 12 UNITS DAILY 11/18 0900 DC 11/21 SC 1244 Insulin Human Regular 0 Q6 11/21 0600 DC 11/21 SC 1243 Metoprolol Succinate 12.5 MG DAILY 11/18 0900 AC 11/22 PO 0849 Mycophenolate Mofetil 1,000 MG BID 11/18 0900 AC 11/22 PO 0843 Nystatin 1 REBECCA BID 11/20 1845 AC 11/22 TOP 0857 Omeprazole 20 MG DAILY AC 11/18 0700 AC 11/22 PO 0627 Ramelteon 8 MG AT BEDTIME 05/19 2100 AC 11/21 PO 2020 Tacrolimus 5 MG 1000 11/23 1000 AC PO Tacrolimus 5 MG 0800 11/22 0800 DC 11/22 PO 0840 Tacrolimus 2 MG 0811/19 0800 DC 11/21 PO 0817 Tacrolimus 3 MG 11/19 0800 DC 11/21 PO 0817 Vancomycin HCl 1,000 MG 2300 11/18 2300 AC 11/21 Sodium Chloride 250 ML IV 2246 Laboratory Tests 11/22 11/22 11/22 0923 0630 0130 Chemistry Sodium (137 - 145 mmol/L) 139 Potassium (3.5 - 5.1 mmol/L) 5.1 Chloride (98 - 107 mmol/L) 102 Carbon Dioxide (22 - 30 mmol/L) 27 Anion Gap (5 - 16) 11 BUN (9 - 20 mg/dL) 38 H Creatinine (0.7 - 1.2 mg/dL) 1.5 H Estimated GFR (>60 ml/min) 46 L BUN/Creatinine Ratio (7 - 25 %) 25.3 H Coagulation APTT (25 - 37 SEC) Pending 36 Hematology CBC w Diff MAN DIFF ORDERED WBC (4.8 - 10.8 /CUMM) 5.5 RBC (4.70 - 6.10 /CUMM) 3.24 L Hgb (14.0 - 18.0 G/DL) 8.6 L Hct (42 - 52 %) 26.5 L MCV (80.0 - 94.0 FL) 81.9 MCH (27.0 - 31.0 PG) 26.6 L MCHC (33.0 - 37.0 G/DL) 32.5 L RDW (11.5 - 14.5 %) 17.2 H Plt Count (130 - 400 /CUMM) 323 MPV (7.4 - 10.4 FL) 8.3 Gran % (42.2 - 75.2 %) 75.1 Lymphocytes % (20.5 - 51.1 %) 11.4 L Monocytes % (1.7 - 9.3 %) 7.8 Eosinophils % (0 - 5 %) 5.2 H Basophils % (0.0 - 2.0 %) 0.5 Absolute Granulocytes (1.4 - 6.5 /CUMM) 4.1 Segmented Neutrophils (42.2 - 75.2 %) 78 H Absolute Lymphocytes (1.2 - 3.4 /CUMM) 0.6 L Lymphocytes (20.5 - 51.1 %) 10 L Monocytes (1.7 - 9.3 %) 8 Absolute Monocytes (0.10 - 0.60 /CUMM) 0.4 Eosinophils (0 - 5.0 %) 4 Absolute Eosinophils (0.0 - 0.7 /CUMM) 0.3 Absolute Basophils (0.0 - 0.2 /CUMM) 0 Platelet Estimate (ADEQUATE) VERIFIED BY SMEAR Normocytic RBCs VERIFIED Normochromic RBCs VERIFIED 11/21 11/21 1800 0540 Chemistry Sodium (137 - 145 mmol/L) 137 Potassium (3.5 - 5.1 mmol/L) 4.9 Chloride (98 - 107 mmol/L) 102 Carbon Dioxide (22 - 30 mmol/L) 24 Anion Gap (5 - 16) 11 BUN (9 - 20 mg/dL) 39 H Creatinine (0.7 - 1.2 mg/dL) 1.6 H Estimated GFR (>60 ml/min) 43 L BUN/Creatinine Ratio (7 - 25 %) 24.4 Coagulation APTT (25 - 37 SEC) 33 Hematology CBC w Diff NO MAN DIFF REQ WBC (4.8 - 10.8 /CUMM) 5.7 RBC (4.70 - 6.10 /CUMM) 3.17 L Hgb (14.0 - 18.0 G/DL) 8.4 L Hct (42 - 52 %) 25.8 L MCV (80.0 - 94.0 FL) 81.4 MCH (27.0 - 31.0 PG) 26.5 L MCHC (33.0 - 37.0 G/DL) 32.6 L RDW (11.5 - 14.5 %) 17.5 H Plt Count (130 - 400 /CUMM) 286 MPV (7.4 - 10.4 FL) 8.3 Gran % (42.2 - 75.2 %) 75.5 H Lymphocytes % (20.5 - 51.1 %) 10.5 L Monocytes % (1.7 - 9.3 %) 9.6 H Eosinophils % (0 - 5 %) 3.8 Basophils % (0.0 - 2.0 %) 0.6 Absolute Granulocytes (1.4 - 6.5 /CUMM) 4.3 Absolute Lymphocytes (1.2 - 3.4 /CUMM) 0.6 L Absolute Monocytes (0.10 - 0.60 /CUMM) 0.5 Absolute Eosinophils (0.0 - 0.7 /CUMM) 0.2 Absolute Basophils (0.0 - 0.2 /CUMM) 0 Toxicology Tacrolimus Pending Microbiology Date/Time Procedure - Status Source Growth 11/19 1706 Blood Culture - RES BLOOD 11/19 1500 Blood Culture - RES BLOOD Vital Signs & I&O Last 24 Hrs of Vitals and I&O: Vital Signs Date Time Temp Pulse Resp B/P B/P Pulse O2 O2 Flow FiO2 Mean Ox Delivery Rate 11/22 0849 64 180/70 11/22 0845 64 180/70 11/22 0650 97.3 62 20 118/66 97 Room Air 11/21 2236 98.0 62 20 110/60 96 11/21 1440 98.0 68 20 135/80 96 Room Air 11/21 1413 140/62 11/21 1413 140/62 Intake & Output 11/22 1600 11/22 0800 11/22 0000 Intake Total 938 860 Output Total 700 Balance 238 860 Intake, IV 438 160 Intake, Oral 500 700 Output, Urine 700 Patient 194 lb 190 lb Weight Weight Bed scale Measurement Method Impression/Plan Impression/Plan Impression/Plan: Head: atraumatic, normal appearance Eyes:Bilateral: normal appearance, PERRL, EOMI. Ears, Nose, Throat: normal pharynx, normal ENT inspection, hearing grossly normal Neck: normal inspection, supple, full range of motion, no midline tenderness Respiratory: normal breath sounds, chest non-tender, no respiratory distress, quiet respiration, lungs clear Cardiovascular: normal peripheral pulses, irregularly irregular, norml femoral pulses equa Peripheral Pulses: 4+ carotid (R), 4+ carotid (L) Gastrointestinal: normal bowel sounds, soft, non-tender, no organomegaly Back: normal inspection, normal range of motion, no vertebral tenderness Extremities: no edema, pelvis stable, dressing with with chronic nonhealing ulcer seen Neurologic/Psych: normal Reflexes:2+: bicep (R), bicep (L). Lymphatic: no anterior cervical adenavf intact IMPRESSION This is a gentleman with s/p renal transplant on immunosupp with initial infected toe with osteo s/p previous surg, previous mrsa bacteremia, DM with * Recurrent MRSA sepsis and Recurrent osteo and infected foot who was recently on prolonged abx and multiple surgeries now with ongoing osteo and cellulitis * Previous neutopenia and anemia - was on neupogen / and initially thought to be due to vanco aswell and was on dapto * DM, autonomic neuropathy, gastropathy, pvd * Previous MRI showing very small punctate lesions prob ateromatous small emboli , on anticoag, and statin * PT with Pafib in Sinus and sig atheromatous aorta, small pfo, - on eloquis * H/o of Prolonged qtc, previous low mag need to continue to monitor * SHIRA with CKD s/p renal transplant, creat now up to 1.8 * DM insulin requiring * PVD, previous history of stoke, and previous toe amputation, now angioplasty of the lower limb with recent amputations * Previous secondary hyperparathyroid. Sig autonomic dysfunction was on fludocortisone * Pafib on eliquis (in sinus on amiodarone) (being dosed for renal function) * Depression and anxiety * Peripheral neuropathy REC * IV abx per ID * Order ECHO and ask ID about the line (to see if this needs to be pulled or replaced) * Cont tacrolimus and mycophenolate * Rpt Tacrolimus level at 930 am tommorow, change tac dose to be taken at 10 am * Follow wbc and hgb q48 hrs * COnt abx / ID note appretiated * COnt all meds * Cont heparin without bolus in anticipation of surg * ID and Podiatry, vascular, and cardio consult noted, discussed with vascular yesterday Dr. Hernandez yesterday and further surg options per vasc and podiatry * Keep sugars around 150 * Watch bp closely
[2017-11-22 10:00] LABS: PTT 45 SEC (25-37)
--- NOTE | 2017-11-22 10:47 | ECHOCARDIOGRAM REPORT ---
BOBBI VELARDE Age: 71 : 1945 Gender: M Exam Date: 11/21/2017 09:14 Exam Location: [place] Ht (in): 70 Wt (lb): 190 BSA: 2.08 BP: 128 / 64 Ordering Physician: Kathleen Villareal MD Referring Physician: Kathleen Villareal MD Technologist: Norman Acosta [facility] Room Number: 236-1 Indications: INFECTIVE ENDOCARDITIS Rhythm: Sinus Technical Quality: Good FINDINGS Left Ventricle Normal size left ventricle. Moderate concentric left ventricular hypertrophy. Normal left ventricular ejection fraction visually estimated at 55-60 %. No obvious regional wall motion abnormalities. Right Ventricle Normal right ventricular size and function. Right Atrium Right atrial dilatation. Left Atrium Mild left atrial dilatation. Mitral Valve Moderate mitral annular calcification. Mitral valve thickened. Mild mitral regurgitation. Aortic Valve Diffuse thickening (sclerosis) of the aortic valve cusps without reduced excursion. Diffuse thickening (sclerosis) of the aortic valve cusps without reduced excursion. No aortic stenosis. No aortic regurgitation. Tricuspid Valve Tricuspid valve not well visualized, grossly normal. Mild tricuspid regurgitation. Right ventricular systolic pressure estimated to be elevated at 45 mmHg. Pulmonic Valve Pulmonic valve not well visualized, grossly normal. Trace pulmonic regurgitation. Pericardium Small pericardial effusion. No evidence of tamponade. Great Vessels Normal size aortic root. CONCLUSIONS Normal size left ventricle. Moderate concentric left ventricular hypertrophy. Normal left ventricular ejection fraction visually estimated at 55- 60 %. Mild left atrial dilatation. Mild mitral regurgitation. Mild tricuspid regurgitation. Right ventricular systolic pressure estimated to be elevated at 45 mmHg. Trace pulmonic regurgitation. Leonardo Prakash M.D. (Electronically Signed) Final Date: 22 Nov 2017 10:46 MEASUREMENTS (Male / Female) Normal Values 2D ECHO LV Diastolic Diameter PLAX 5.4 cm 4.2 - 5.9 / 3.9 - 5.3 cm LV Systolic Diameter PLAX 3.6 cm 2.1 - 4.0 cm LV Fractional Shortening PLAX 33.3 % 25 - 46 % LV Ejection Fraction 2D Teich 61.5 % IVS Diastolic Thickness 1.8 cm LVPW Diastolic Thickness 1.8 cm LV Relative Wall Thickness 0.7 RV Internal Dim ED PLAX 2.6 cm 1.9 - 3.8 cm LVOT Diameter 2.1 cm Aortic Root Diameter 3.4 cm LA Systolic Diameter LX 5.3 cm 3.0 - 4.0 / 2.7 - 3.8 cm LA Volume 90.0 cm 18 - 58 / 22 - 52 cm Ascending Aorta Diameter 3.0 cm DOPPLER AV Peak Velocity 127.0 cm/s AV Peak Gradient 6.5 mmHg AV Mean Velocity 87.8 cm/s AV Mean Gradient 4.0 mmHg AV Velocity Time Integral 39.2 cm LVOT Peak Velocity 84.2 cm/s LVOT Peak Gradient 2.8 mmHg LVOT Mean Velocity 43.9 cm/s LVOT Mean Gradient 1.0 mmHg LVOT Velocity Time Integral 25.3 cm LVOT Stroke Volume 87.6 cm AV Area Cont Eq vti 2.2 cm AV Area Cont Eq pk 2.3 cm MV Peak Velocity 117.0 cm/s MV Peak Gradient 5.5 mmHg MV Mean Velocity 74.5 cm/s MV Mean Gradient 3.0 mmHg Mitral E Point Velocity 102.0 cm/s Mitral A Point Velocity 98.2 cm/s Mitral E to A Ratio 1.0 MV PHT Velocity 117.0 cm/s MV Deceleration Josephine 436.0 cm/s MV Pressure Half Time 80.5 ms MV Area PHT 2.7 cm MV Deceleration Time 239.0 ms TR Peak Velocity 315.0 cm/s TR Peak Gradient 39.7 mmHg Right Atrial Pressure 5.0 mmHg Pulmonary Artery Systolic Pressu 44.7 mmHg Right Ventricular Systolic Press 44.7 mmHg PV Peak Velocity 77.2 cm/s PV Peak Gradient 2.4 mmHg PV Mean Velocity 56.5 cm/s PV Mean Gradient 1.0 mmHg PV Velocity Time Integral 21.8 cm LV E' Lateral Velocity 6.2 cm/s Mitral E to LV E' Lateral Ratio 16.3 LV E' Septal Velocity 6.3 cm/s Mitral E to LV E' Septal Ratio 16.1
[2017-11-22 11:40] VITALS: BP 138/80
--- NOTE | 2017-11-22 14:30 | PN- Infect Dx ---
Subjective Subjective: Afebrile without complaints Objective Last 24 Hrs of Vital Signs/I&O Vital Signs Date Time Temp Pulse Resp B/P B/P Pulse O2 O2 Flow FiO2 Mean Ox Delivery Rate 11/22 1140 66 20 138/80 11/22 0849 64 180/70 11/22 0845 64 180/70 11/22 0650 97.3 62 20 118/66 97 Room Air 11/21 2236 98.0 62 20 110/60 96 11/21 1440 98.0 68 20 135/80 96 Room Air 11/21 1413 140/62 11/21 1413 140/62 Intake & Output 11/22 1600 11/22 0800 11/22 0000 Intake Total 938 860 Output Total 700 Balance 238 860 Intake, IV 438 160 Intake, Oral 500 700 Output, Urine 700 Patient 194 lb 190 lb Weight Weight Bed scale Measurement Method Physical Exam Other Physical Findings: He appears comfortable in no acute distress Chest Pro-Line in the right upper chest with no inflammation at the site Extremities right foot dressing intact Results Last 24 Hours of Lab Results: Laboratory Tests 11/22 11/22 11/22 11/21 0923 0630 0130 1800 Chemistry Sodium (137 - 145 mmol/L) 139 Potassium (3.5 - 5.1 mmol/L) 5.1 Chloride (98 - 107 mmol/L) 102 Carbon Dioxide (22 - 30 mmol/L) 27 Anion Gap (5 - 16) 11 BUN (9 - 20 mg/dL) 38 H Creatinine (0.7 - 1.2 mg/dL) 1.5 H Estimated GFR (>60 ml/min) 46 L BUN/Creatinine Ratio (7 - 25 %) 25.3 H Coagulation APTT (25 - 37 SEC) 45 H 36 33 Hematology CBC w Diff MAN DIFF ORDERED WBC (4.8 - 10.8 /CUMM) 5.5 RBC (4.70 - 6.10 /CUMM) 3.24 L Hgb (14.0 - 18.0 G/DL) 8.6 L Hct (42 - 52 %) 26.5 L MCV (80.0 - 94.0 FL) 81.9 MCH (27.0 - 31.0 PG) 26.6 L MCHC (33.0 - 37.0 G/DL) 32.5 L RDW (11.5 - 14.5 %) 17.2 H Plt Count (130 - 400 /CUMM) 323 MPV (7.4 - 10.4 FL) 8.3 Gran % (42.2 - 75.2 %) 75.1 Lymphocytes % (20.5 - 51.1 %) 11.4 L Monocytes % (1.7 - 9.3 %) 7.8 Eosinophils % (0 - 5 %) 5.2 H Basophils % (0.0 - 2.0 %) 0.5 Absolute Granulocytes (1.4 - 6.5 /CUMM) 4.1 Segmented Neutrophils (42.2 - 75.2 %) 78 H Absolute Lymphocytes (1.2 - 3.4 /CUMM) 0.6 L Lymphocytes (20.5 - 51.1 %) 10 L Monocytes (1.7 - 9.3 %) 8 Absolute Monocytes (0.10 - 0.60 /CUMM) 0.4 Eosinophils (0 - 5.0 %) 4 Absolute Eosinophils (0.0 - 0.7 /CUMM) 0.3 Absolute Basophils (0.0 - 0.2 /CUMM) 0 Platelet Estimate (ADEQUATE) VERIFIED BY SMEAR Normocytic RBCs VERIFIED Normochromic RBCs VERIFIED Last 24 Hours of Joel Results: Blood cultures 2 November 19 negative Recent Imaging Studies: Echocardiogram November 19 no vegetations noted Assessment/Plan ID Impression: Recurrent MRSA sepsis, presumably secondary to his right foot infection, status post open partial second ray resection 4 days ago for gas gangrene/osteomyelitis , with his temperatures and white blood cell count remaining normal on Vancomycin Day 4. His echocardiogram does not reveal any vegetations but, given his recurrent bacteremia, endocarditis remains a concern, particularly given the question of a vegetation on the previous echocardiogram. He is apparently scheduled for a right TMA on November 25, but this will likely leave him with a residual osteomyelitis, which will require another prolonged course of antibiotics. A right BKA was again recommended by Podiatry, as it was on his last admission, but he is again reluctant to accept this at this time. Suggestion: 1. Await right transmetatarsal amputation, scheduled for November 25 2. Will discuss echocardiogram with Cardiology 3. Obtain a Vancomycin trough level with his next dose 4. Continue Vancomycin, with close monitoring of his white blood cell count and creatinine
[2017-11-22 14:40] VITALS: BP 110/70
--- NOTE | 2017-11-22 15:40 | PN- Nephrology ---
Assessment/Plan Nephrology Assessment: 1. CKD stage III status post DDKT 2014; renal function stable 2. Osteomyelitis right foot 3. 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 Diabetes mellitus 5. History of atrial fibrillation 6. Status post CVA in 2006 Suggestion: 1. Monitor vancomycin trough levels 2. Antibiotic therapy per ID 3. Continue current immunosuppressive regimen 4. For possible TMA this Tuesday Subjective Subjective: Patient is quite dejected about the upcoming surgery, especially if a BKA is required. He remains afebrile with normal WBC and no specific complaints. Renal function is stable. Objective Vital Signs and I&Os Vital Signs Date Time Temp Pulse Resp B/P B/P Pulse O2 O2 Flow FiO2 Mean Ox Delivery Rate 11/22 1440 97.7 68 20 110/70 95 11/22 1140 66 20 138/80 11/22 0849 64 180/70 11/22 0845 64 180/70 11/22 0650 97.3 62 20 118/66 97 Room Air 11/21 2236 98.0 62 20 110/60 96 Intake & Output 11/22 1600 11/22 0400 11/21 1600 11/21 0400 11/20 1600 11/20 0400 Intake Total 569 228 3370 850 1000 Output Total 700 2100 1025 300 Balance 238 860 -720 850 -25 -300 Intake, IV 438 160 900 250 280 Intake, Oral 500 700 480 600 720 Number 0 Bowel Movements Output, Urine 700 2100 1025 300 Patient 194 lb 190 lb 196 lb 188 lb Weight Weight Bed scale Bed scale Measurement Method Physical Exam: General: Well-developed white male in NAD Skin: No rash or jaundice; multiple senile keratoses; no petechiae or splinter hemorrhages HEENT: Conjunctivae pale, sclerae anicteric, mucous membranes moist Neck: Without masses or thyromegaly, no supraclavicular or cervical adenopathy Chest: Clear to P&A Heart: Regular rate and rhythm without S3 or rub Abdomen: Soft and nontender without palpable masses or organomegaly Extremities: Without cyanosis or edema; right foot dressing intact Neuro: Awake, alert and oriented, no focal findings, no asterixis or myoclonus Results Pertinent Lab Results: Laboratory Tests 11/22 11/22 11/22 11/21 0923 0630 0130 1800 Chemistry Sodium (137 - 145 mmol/L) 139 Potassium (3.5 - 5.1 mmol/L) 5.1 Chloride (98 - 107 mmol/L) 102 Carbon Dioxide (22 - 30 mmol/L) 27 Anion Gap (5 - 16) 11 BUN (9 - 20 mg/dL) 38 H Creatinine (0.7 - 1.2 mg/dL) 1.5 H Estimated GFR (>60 ml/min) 46 L BUN/Creatinine Ratio (7 - 25 %) 25.3 H Coagulation APTT (25 - 37 SEC) 45 H 36 33 Hematology CBC w Diff MAN DIFF ORDERED WBC (4.8 - 10.8 /CUMM) 5.5 RBC (4.70 - 6.10 /CUMM) 3.24 L Hgb (14.0 - 18.0 G/DL) 8.6 L Hct (42 - 52 %) 26.5 L MCV (80.0 - 94.0 FL) 81.9 MCH (27.0 - 31.0 PG) 26.6 L MCHC (33.0 - 37.0 G/DL) 32.5 L RDW (11.5 - 14.5 %) 17.2 H Plt Count (130 - 400 /CUMM) 323 MPV (7.4 - 10.4 FL) 8.3 Gran % (42.2 - 75.2 %) 75.1 Lymphocytes % (20.5 - 51.1 %) 11.4 L Monocytes % (1.7 - 9.3 %) 7.8 Eosinophils % (0 - 5 %) 5.2 H Basophils % (0.0 - 2.0 %) 0.5 Absolute Granulocytes (1.4 - 6.5 /CUMM) 4.1 Segmented Neutrophils (42.2 - 75.2 %) 78 H Absolute Lymphocytes (1.2 - 3.4 /CUMM) 0.6 L Lymphocytes (20.5 - 51.1 %) 10 L Monocytes (1.7 - 9.3 %) 8 Absolute Monocytes (0.10 - 0.60 /CUMM) 0.4 Eosinophils (0 - 5.0 %) 4 Absolute Eosinophils (0.0 - 0.7 /CUMM) 0.3 Absolute Basophils (0.0 - 0.2 /CUMM) 0 Platelet Estimate (ADEQUATE) VERIFIED BY SMEAR Normocytic RBCs VERIFIED Normochromic RBCs VERIFIED 11/21 11/20 0540 0555 Chemistry Sodium (137 - 145 mmol/L) 137 136 L Potassium (3.5 - 5.1 mmol/L) 4.9 4.4 Chloride (98 - 107 mmol/L) 102 102 Carbon Dioxide (22 - 30 mmol/L) 24 24 Anion Gap (5 - 16) 11 10 BUN (9 - 20 mg/dL) 39 H 37 H Creatinine (0.7 - 1.2 mg/dL) 1.6 H 1.7 H Estimated GFR (>60 ml/min) 43 L 40 L BUN/Creatinine Ratio (7 - 25 %) 24.4 21.8 Hematology CBC w Diff NO MAN DIFF REQ NO MAN DIFF REQ WBC (4.8 - 10.8 /CUMM) 5.7 5.4 RBC (4.70 - 6.10 /CUMM) 3.17 L 3.00 L Hgb (14.0 - 18.0 G/DL) 8.4 L 8.0 L Hct (42 - 52 %) 25.8 L 24.4 L MCV (80.0 - 94.0 FL) 81.4 81.3 MCH (27.0 - 31.0 PG) 26.5 L 26.6 L MCHC (33.0 - 37.0 G/DL) 32.6 L 32.8 L RDW (11.5 - 14.5 %) 17.5 H 16.9 H Plt Count (130 - 400 /CUMM) 286 252 MPV (7.4 - 10.4 FL) 8.3 8.3 Gran % (42.2 - 75.2 %) 75.5 H 73.9 Lymphocytes % (20.5 - 51.1 %) 10.5 L 9.6 L Monocytes % (1.7 - 9.3 %) 9.6 H 13.4 H Eosinophils % (0 - 5 %) 3.8 2.3 Basophils % (0.0 - 2.0 %) 0.6 0.8 Absolute Granulocytes (1.4 - 6.5 /CUMM) 4.3 4.0 Absolute Lymphocytes (1.2 - 3.4 /CUMM) 0.6 L 0.5 L Absolute Monocytes (0.10 - 0.60 /CUMM) 0.5 0.7 H Absolute Eosinophils (0.0 - 0.7 /CUMM) 0.2 0.1 Absolute Basophils (0.0 - 0.2 /CUMM) 0 0 Toxicology Tacrolimus Pending
[2017-11-22 17:37] LABS: PTT 64 SEC (25-37)
--- NOTE | 2017-11-22 19:17 | PN- Cardiology ---
Subjective Subjective: No chest pain. No shortness of breath. No palpitations. No diaphoresis. No nausea or vomiting. Objective Vital Signs and I&Os Vital Signs Date Time Temp Pulse Resp B/P B/P Pulse O2 O2 Flow FiO2 Mean Ox Delivery Rate 11/22 1440 97.7 68 20 110/70 95 11/22 1140 66 20 138/80 11/22 0849 64 180/70 11/22 0845 64 180/70 11/22 0650 97.3 62 20 118/66 97 Room Air 11/21 2236 98.0 62 20 110/60 96 Intake & Output 11/22 1600 11/22 0800 11/22 0000 11/21 1600 11/21 0800 11/21 0000 Intake Total 972.40 938 860 780 600 850 Output Total 425 867 789 2082 Balance 547.40 238 860 -120 -600 850 Intake, IV 252.40 438 160 300 600 250 Intake, Oral 720 500 700 480 0 600 Number 0 Bowel Movements Output, Urine 425 250 970 0177 Patient 194 lb 190 lb 196 lb Weight Weight Bed scale Measurement Method Physical Exam: Gen: NAD HEENT: normal Lungs: clear to auscultation, normal resp. effort Heart: RRR, S1, S2, 1 out of 6 systolic murmur Abdomen: Soft, nontender, no masses Extremities: Wound VAC in place on the right lower external Neuro: Alert and oriented x 3, cranial nerves intact Current Medications: Current Medications Sig/Ira Start time Last Medication Dose Route Stop Time Status Admin Acetaminophen 650 MG Q6P PRN 11/18 0245 AC 11/21 PO 1620 Alprazolam 0.5 MG DAILY NEEDED PRN 11/18 0300 AC 11/21 PO 11/25 0259 1626 Amiodarone HCl 100 MG DAILY 11/18 09 AC 11/22 PO 0845 Atorvastatin Calcium 10 MG DAILY 11/18 0900 AC 11/22 PO 0845 Calcitriol 0.25 MCG DAILY 11/19 1159 AC 11/22 PO 0849 Calcium Carbonate 500 MG TID 11/19 1400 AC 11/22 PO 1452 Cholecalciferol 2,000 IU DAILY 11/19 1200 AC 11/22 PO 0842 Escitalopram Oxalate 20 MG DAILY 11/20 0900 AC 11/22 PO 0844 Heparin Sodium 2,586 UNIT ONCE ONE 11/22 1052 DC 11/22 (Porcine) IV 11/22 1053 1245 Heparin Sodium 10,000 UNIT .STK-MED ONE 11/22 0325 DC (Porcine) IV 11/22 0326 Heparin Sodium 5,200 UNIT ONCE ONE 11/22 0310 DC 11/22 (Porcine) IV 11/22 0311 0331 Heparin Sodium 25,000 UNIT Q24H 11/21 1645 AC 11/22 (Porcine) IV 1701 Sodium Chloride 500 ML Insulin Aspart 0 AT BEDTIME 11/21 2100 AC SC Insulin Aspart 0 TIDAC 11/21 1700 AC 11/22 SC 1700 Insulin Detemir 14 UNITS DAILY 11/22 0900 DC SC Insulin Detemir 14 UNITS BID 11/22 0900 AC 11/22 SC 0853 Metoprolol Succinate 12.5 MG DAILY 11/18 0900 AC 11/22 PO 0849 Mycophenolate Mofetil 1,000 MG BID 11/18 0900 AC 11/22 PO 0843 Nystatin 1 REBECCA BID 11/20 1845 AC 11/22 TOP 0857 Omeprazole 20 MG DAILY AC 11/18 0700 AC 11/22 PO 0627 Ramelteon 8 MG AT BEDTIME 11/19 2100 AC 11/21 PO 2020 Tacrolimus 5 MG 1000 11/23 1000 AC PO Tacrolimus 5 MG 0800 11/22 0800 DC 11/22 PO 0840 Vancomycin HCl 1,000 MG 2300 11/18 2300 AC 11/21 Sodium Chloride 250 ML IV 2246 Results Last 48 Hrs of Labs/Mics: Laboratory Tests 11/22/17 1610: APTT 64 H 11/22/17 0923: APTT 45 H 11/22/17 0630: Anion Gap 11, Estimated GFR 46 L, BUN/Creatinine Ratio 25.3 H, CBC w Diff MAN DIFF ORDERED, RBC 3.24 L, MCV 81.9, MCH 26.6 L, MCHC 32.5 L, RDW 17.2 H, MPV 8.3, Gran % 75.1, Lymphocytes % 11.4 L, Monocytes % 7.8, Eosinophils % 5.2 H, Basophils % 0.5, Absolute Granulocytes 4.1, Segmented Neutrophils 78 H, Absolute Lymphocytes 0.6 L, Lymphocytes 10 L, Monocytes 8, Absolute Monocytes 0.4, Eosinophils 4, Absolute Eosinophils 0.3, Absolute Basophils 0, Platelet Estimate VERIFIED BY SMEAR, Normocytic RBCs VERIFIED, Normochromic RBCs VERIFIED 11/22/17 0130: APTT 36 11/21/17 1800: APTT 33 11/21/17 0540: Anion Gap 11, Estimated GFR 43 L, BUN/Creatinine Ratio 24.4, CBC w Diff NO MAN DIFF REQ, RBC 3.17 L, MCV 81.4, MCH 26.5 L, MCHC 32.6 L, RDW 17.5 H, MPV 8.3 , Gran % 75.5 H, Lymphocytes % 10.5 L, Monocytes % 9.6 H, Eosinophils % 3.8, Basophils % 0.6, Absolute Granulocytes 4.3, Absolute Lymphocytes 0.6 L, Absolute Monocytes 0.5, Absolute Eosinophils 0.2, Absolute Basophils 0, Tacrolimus Pending Recent Imaging Studies: Persantine sestamibi stress test November 21, 2017: Normal Persantine stress and resting myocardial perfusion study with normal left ventricular wall motion and ejection fraction. Assessment/Plan Assessment/Plan Assessment: 1. Osteomyelitis of right second MTP joint and second toe 2. History of recent troponin elevation 3. Acute on chronic renal insufficiency 4. History of renal transplantation on immunosuppressive therapy 5. History of paroxysmal atrial fibrillation on anticoagulant therapy Plan: * Nuclear stress test completed, and shows no evidence of ischemia * The patient is cleared from a cardiac standpoint for the planned surgery. * Continue IV heparin preoperatively, and restart Eliquis after surgery Continue telemetry? Not applicable
[2017-11-22 22:08] VITALS: BP 100/60
[2017-11-23 04:25] LABS: PTT 66 SEC (25-37)
[2017-11-23 07:04] VITALS: BP 120/58
--- NOTE | 2017-11-23 07:41 | PN- Housestaff ---
Subjective Follow-up For: #Osteomyelitis of right second MTP status post debridement #SHIRA and CKD #Anemia Subjective: FSG [id number]. Patient offers no complaints. Patient denies active bleeding though hgb drop. Review of Systems Constitutional: Reports: see HPI. Objective Last 24 Hrs of Vital Signs/I&O Vital Signs Date Time Temp Pulse Resp B/P B/P Pulse O2 O2 Flow FiO2 Mean Ox Delivery Rate 11/23 0852 61 118/54 11/23 0844 61 118/54 11/23 0704 96.2 64 18 120/58 94 Room Air 11/22 2208 99.8 69 20 100/60 95 11/22 1440 97.7 68 20 110/70 95 11/22 1140 66 20 138/80 Intake & Output 11/23 1600 11/23 0800 11/23 0000 Intake Total 120 943.2 Output Total 1175 1100 Balance -1055 -156.8 Intake, IV 243.2 Intake, Oral 120 700 Output, Urine 1175 1100 Patient 166 lb Weight Weight Bed scale Measurement Method Physical Exam General Appearance: Alert, Oriented X3, Cooperative, No Acute Distress Cardiovascular: Regular Rate, Normal S1, Normal S2 Lungs: Clear to Auscultation, Normal Air Movement Abdomen: Normal Bowel Sounds, Soft, No Tenderness Extremities: R foot dressing intact without drainage Current Medications: Current Medications Sig/Ira Start time Last Medication Dose Route Stop Time Status Admin Acetaminophen 650 MG Q6P PRN 11/18 0245 AC 11/21 PO 1620 Alprazolam 0.5 MG DAILY NEEDED PRN 11/18 0300 AC 11/21 PO 11/25 0259 1626 Amiodarone HCl 100 MG DAILY 11/18 09 AC 11/23 PO 0844 Atorvastatin Calcium 10 MG DAILY 11/18 0900 AC 11/23 PO 0844 Calcitriol 0.25 MCG DAILY 11/19 1159 AC 11/23 PO 0844 Calcium Carbonate 500 MG TID 11/19 1400 AC 11/23 PO 0843 Cholecalciferol 2,000 IU DAILY 11/19 1200 AC 11/23 PO 0843 Escitalopram Oxalate 20 MG DAILY 11/20 09 AC 11/23 PO 0843 Heparin Sodium 5,000 UNIT .STK-MED ONE 11/22 1240 DC (Porcine) IV 11/22 1241 Heparin Sodium 2,586 UNIT ONCE ONE 11/22 1052 DC 11/22 (Porcine) IV 11/22 1053 1245 Heparin Sodium 25,000 UNIT Q24H 11/21 1645 AC 11/23 (Porcine) IV 1047 Sodium Chloride 500 ML Hydrocodone Bitart/ 1 TAB ONCE ONE 11/22 2100 DC 11/22 Acetaminophen PO 11/22 2100 212 Insulin Aspart 0 AT BEDTIME 11/21 2100 AC SC Insulin Aspart 0 TIDAC 11/21 1700 AC 11/22 SC 1700 Insulin Detemir 14 UNITS BID 11/22 0900 AC 11/23 SC 0846 Metoprolol Succinate 12.5 MG DAILY 11/18 0900 AC 11/23 PO 0852 Mycophenolate Mofetil 1,000 MG BID 11/18 0900 AC 11/23 PO 0845 Nystatin 1 REBECCA BID 11/20 1845 AC 11/23 TOP 0857 Omeprazole 20 MG DAILY AC 11/18 0700 AC 11/23 PO 0605 Ramelteon 8 MG AT BEDTIME 11/19 2100 AC 11/22 PO 2015 Tacrolimus 5 MG 1000 11/23 1000 AC 11/23 PO 0851 Vancomycin HCl 1,000 MG 2300 11/18 2300 AC 11/22 Sodium Chloride 250 ML IV 2334 Last 24 Hrs of Lab/Joel Results Last 24 Hrs of Labs/Mics: Laboratory Tests 11/23/17 0606: Anion Gap 9, Estimated GFR 55 L, BUN/Creatinine Ratio 26.9 H, APTT 70 H, CBC w Diff MAN DIFF ORDERED, RBC 2.84 L, MCV 82.2, MCH 26.2 L, MCHC 31.9 L, RDW 17.4 H, MPV 7.9, Gran % 74.9, Lymphocytes % 10.1 L, Monocytes % 11.4 H, Eosinophils % 2.9, Basophils % 0.7, Absolute Granulocytes 5.4, Segmented Neutrophils 67, Absolute Lymphocytes 0.7 L, Lymphocytes 16 L, Monocytes 9, Absolute Monocytes 0.8 H, Eosinophils 8 H, Absolute Eosinophils 0.2, Absolute Basophils 0, Platelet Estimate VERIFIED BY SMEAR, Normocytic RBCs VERIFIED, Normochromic RBCs VERIFIED 11/23/17 0350: APTT 66 H 11/22/17 2207: Vancomycin Trough 12.0 11/22/17 2100: Vancomycin Trough Cancelled 11/22/17 1610: APTT 64 H Assessment/Plan Assessment: Mr. Edouard is a 71-year-old male presented to ED with fever, chills and nausea with past medical history of significant for ESRD status post renal transplant on tacrolimus and CellCept, paroxysmal atrial fibrillation on Eliquis, HTN, HLD, CVA, DM, osteomyelitis of the right distal phalanx of the right great toe status post partial amputation 09/09/17 with positive pathology for osteomyelitis, blood and OR culture growing Escherichia coli, Citrobacter and MRSA, wound had clean margins Problem list: #Osteomyelitis of right second MTP status post debridement #SHIRA and CKD Plan: * Hemoccult stools due to drop in hgb 8.6>>7.5, we will not transfuse at this time * Repeat CBC for 6 pm * We will reduce Levemir from 14U to 12U BID as per Endo due to noted hypoglycemia * Stress tesing wnl * Continue vancomycin, trough level 12 * Tacrolimis level pending * Continue tacrolimus and CellCept * Iuma-Oryb-yzohfwd scale NovoLog insulin * Continue amiodarone, metoprolol for PAF * We will continue IV Heparin until postop Tuesday then resume Apixaban thereafter as per Podiatry * Echo showed Moderate concentric left ventricular hypertrophy with an EF of 55- 60 %. No obvious regional wall motion abnormalities. * Appreciate podiatry, ID, vascular surgery, nephrology, cardio recommendations * Endo consult for uncontrolled DM * TKA scheduled for Tuesday Code-full code Diet-diabetic diet Problem List: 1. Osteomyelitis Pain Ratin Pain Location: NA Pain Goal: Remain pain free Pain Plan: NA Tomorrow's Labs & Rationales: CBC, BEP
--- NOTE | 2017-11-23 07:52 | PN- Diabetes ---
Assessment/Plan Diabetes Assessment: The patient feels improved. His fingerstick blood sugar this morning is 72 which is somewhat low. At the present time he is on 14 units of Levemir twice a day along with sliding scale NovoLog. Plan: Suggest reduce Levemir to 12 units twice a day and continue present sliding scale NovoLog. Continue to monitor the patient's blood sugars 4 times a day. Subjective Subjective: Feels okay Review of Systems Constitutional: Denies: chills, fever. Cardiovascular: Denies: chest pain. Respiratory: Denies: cough, short of breath. Gastrointestinal: Denies: abdominal pain, vomiting. Skin: Reports: no symptoms. Objective Last 24 Hrs of Vital Signs/I&O Vital Signs Date Time Temp Pulse Resp B/P B/P Pulse O2 O2 Flow FiO2 Mean Ox Delivery Rate 11/23 0704 96.2 64 18 120/58 94 Room Air 11/23 2207 99.8 69 20 100/60 95 11/22 1440 97.7 68 20 110/70 95 11/22 1140 66 20 138/80 11/22 0849 64 180/70 11/22 0845 64 180/70 Intake & Output 11/23 0800 11/23 0000 11/22 1600 Intake Total 120 943.2 972.40 Output Total 1175 1100 425 Balance -1055 -156.8 547.40 Intake, IV 243.2 252.40 Intake, Oral 120 700 720 Number 0 Bowel Movements Output, Urine 1175 1100 425 Patient 166 lb Weight Weight Bed scale Measurement Method Vital Signs Date Time Temp Pulse Resp B/P B/P Pulse O2 O2 Flow FiO2 Mean Ox Delivery Rate 11/23 0704 96.2 64 18 120/58 94 Room Air 11/228 99.8 69 20 100/60 95 11/22 1440 97.7 68 20 110/70 95 11/22 1140 66 20 138/80 11/22 0849 64 180/70 11/22 0845 64 180/70 Intake & Output 11/23 0800 11/23 0000 11/22 1600 Intake Total 120 943.2 972.40 Output Total 1175 1100 425 Balance -1055 -156.8 547.40 Intake, IV 243.2 252.40 Intake, Oral 120 700 720 Number 0 Bowel Movements Output, Urine 1175 1100 425 Patient 166 lb Weight Weight Bed scale Measurement Method Physical Exam General Appearance: alert, awake, comfortable Respiratory: normal breath sounds Cardiovascular: regular rate/rhythm Abdomen: normal bowel sounds, soft Extremities: normal inspection Current Medications: Current Medications Sig/Ira Start time Last Medication Dose Route Stop Time Status Admin Acetaminophen 650 MG Q6P PRN 11/18 0245 AC 11/21 PO 1620 Alprazolam 0.5 MG DAILY NEEDED PRN 11/18 0300 AC 11/21 PO 11/25 0259 1626 Amiodarone HCl 100 MG DAILY 11/18 09 AC 11/22 PO 0845 Atorvastatin Calcium 10 MG DAILY 11/18 0900 AC 11/22 PO 0845 Calcitriol 0.25 MCG DAILY 11/19 1159 AC 11/22 PO 0849 Calcium Carbonate 500 MG TID 11/19 1400 AC 11/22 PO 2015 Cholecalciferol 2,000 IU DAILY 11/19 1200 AC 11/22 PO 0842 Escitalopram Oxalate 20 MG DAILY 11/20 0900 AC 11/22 PO 0844 Heparin Sodium 5,000 UNIT .STK-MED ONE 11/22 1240 DC (Porcine) IV 11/22 1241 Heparin Sodium 2,586 UNIT ONCE ONE 11/22 1052 DC 11/22 (Porcine) IV 11/22 1053 1245 Heparin Sodium 25,000 UNIT Q24H 11/21 1645 AC 11/22 (Porcine) IV 1701 Sodium Chloride 500 ML Hydrocodone Bitart/ 1 TAB ONCE ONE 11/22 2100 DC 11/22 Acetaminophen PO 11/22 2101 2126 Insulin Aspart 0 AT BEDTIME 11/21 2100 AC SC Insulin Aspart 0 TIDAC 11/21 1700 AC 11/22 SC 1700 Insulin Detemir 14 UNITS DAILY 11/22 0900 DC SC Insulin Detemir 14 UNITS BID 11/22 0900 AC 11/22 SC 2016 Metoprolol Succinate 12.5 MG DAILY 11/18 0900 AC 11/22 PO 0849 Mycophenolate Mofetil 1,000 MG BID 11/18 0900 AC 11/22 PO 2015 Nystatin 1 REBECCA BID 11/20 1845 AC 11/22 TOP 2015 Omeprazole 20 MG DAILY AC 11/18 0700 AC 11/23 PO 0605 Ramelteon 8 MG AT BEDTIME 11/19 2100 AC 11/22 PO 2015 Tacrolimus 5 MG 1000 11/23 1000 AC PO Tacrolimus 5 MG 0800 11/22 0800 DC 11/22 PO 0840 Vancomycin HCl 1,000 MG 2300 11/18 2300 AC 11/22 Sodium Chloride 250 ML IV 2334 Findings Pertinent Lab/Joel Results: Laboratory Tests 11/23 11/23 11/22 11/22 11/22 0606 0350 2207 2100 1610 Chemistry Sodium Pending Potassium Pending Chloride Pending Carbon Dioxide Pending Anion Gap Pending BUN Pending Creatinine Pending BUN/Creatinine Ratio Pending Coagulation APTT (25 - 37 SEC) Pending 66 H 64 H Hematology CBC w Diff Pending WBC Pending RBC Pending Hgb Pending Hct Pending MCV Pending MCH Pending MCHC Pending RDW Pending Plt Count Pending MPV Pending Toxicology Vancomycin Trough (10.0 - 20.0 ug/mL) 12.0 Cancelled 11/22 11/22 11/22 11/21 0923 0630 0130 1800 Chemistry Sodium (137 - 145 mmol/L) 139 Potassium (3.5 - 5.1 mmol/L) 5.1 Chloride (98 - 107 mmol/L) 102 Carbon Dioxide (22 - 30 mmol/L) 27 Anion Gap (5 - 16) 11 BUN (9 - 20 mg/dL) 38 H Creatinine (0.7 - 1.2 mg/dL) 1.5 H Estimated GFR (>60 ml/min) 46 L BUN/Creatinine Ratio (7 - 25 %) 25.3 H Coagulation APTT (25 - 37 SEC) 45 H 36 33 Hematology CBC w Diff MAN DIFF ORDERED WBC (4.8 - 10.8 /CUMM) 5.5 RBC (4.70 - 6.10 /CUMM) 3.24 L Hgb (14.0 - 18.0 G/DL) 8.6 L Hct (42 - 52 %) 26.5 L MCV (80.0 - 94.0 FL) 81.9 MCH (27.0 - 31.0 PG) 26.6 L MCHC (33.0 - 37.0 G/DL) 32.5 L RDW (11.5 - 14.5 %) 17.2 H Plt Count (130 - 400 /CUMM) 323 MPV (7.4 - 10.4 FL) 8.3 Gran % (42.2 - 75.2 %) 75.1 Lymphocytes % (20.5 - 51.1 %) 11.4 L Monocytes % (1.7 - 9.3 %) 7.8 Eosinophils % (0 - 5 %) 5.2 H Basophils % (0.0 - 2.0 %) 0.5 Absolute Granulocytes (1.4 - 6.5 /CUMM) 4.1 Segmented Neutrophils (42.2 - 75.2 %) 78 H Absolute Lymphocytes (1.2 - 3.4 /CUMM) 0.6 L Lymphocytes (20.5 - 51.1 %) 10 L Monocytes (1.7 - 9.3 %) 8 Absolute Monocytes (0.10 - 0.60 /CUMM) 0.4 Eosinophils (0 - 5.0 %) 4 Absolute Eosinophils (0.0 - 0.7 /CUMM) 0.3 Absolute Basophils (0.0 - 0.2 /CUMM) 0 Platelet Estimate (ADEQUATE) VERIFIED BY SMEAR Normocytic RBCs VERIFIED Normochromic RBCs VERIFIED
[2017-11-23 08:17] LABS: ABSOLUTE BASOPHIL COUNT 0 /CUMM (0.0-0.2); ABSOLUTE EOSINOPHIL COUNT 0.2 /CUMM (0.0-0.7); ABSOLUTE GRANULOCYTE CT 5.4 /CUMM (1.4-6.5); ABSOLUTE LYMPH COUNT 0.7 /CUMM (1.2-3.4); ABSOLUTE MONOCYTE COUNT 0.8 /CUMM (0.10-0.60); BASOPHIL % 0.7 % (0.0-2.0); EOSINOPHIL % 2.9 % (0-5); GRANULOCYTE % 74.9 % (42.2-75.2); HEMATOCRIT 23.4 % (42-52); MEAN CORPUSCULAR HGB 26.2 PG (27.0-31.0); MEAN CORPUSCULAR HGB CONC 31.9 G/DL (33.0-37.0); MEAN CORPUSCULAR VOLUME 82.2 FL (80.0-94.0); MEAN PLATELET VOLUME 7.9 FL (7.4-10.4); PLATELET COUNT 339 /CUMM (130-400); RBC DISTRIBUTION WIDTH 17.4 % (11.5-14.5); RED BLOOD CELL CT 2.84 /CUMM (4.70-6.10); WHITE BLOOD CELL COUNT 7.3 /CUMM (4.8-10.8)
[2017-11-23 08:23] LABS: PTT 70 SEC (25-37)
--- NOTE | 2017-11-23 10:26 | PN- Pulmonary ---
Subjective HPI/Critical Care Issues: Doing ok Sugars were lower today Ongoing insulin mgt by endo Denies: chills, fever. Cardiovascular: Denies: chest pain. Respiratory: Denies: cough, short of breath. Gastrointestinal: Denies: abdominal pain, vomiting. Skin: Reports: no symptoms. Objective Current Medications: Current Medications Sig/Ira Start time Last Medication Dose Route Stop Time Status Admin Acetaminophen 650 MG Q6P PRN 11/18 0245 AC 11/21 PO 1620 Alprazolam 0.5 MG DAILY NEEDED PRN 11/18 0300 AC 11/21 PO 11/25 0259 1626 Amiodarone HCl 100 MG DAILY 11/18 0900 AC 11/23 PO 0844 Atorvastatin Calcium 10 MG DAILY 11/18 0900 AC 11/23 PO 0844 Calcitriol 0.25 MCG DAILY 11/19 1159 AC 11/23 PO 0844 Calcium Carbonate 500 MG TID 11/19 1400 AC 11/23 PO 0843 Cholecalciferol 2,000 IU DAILY 11/19 1200 AC 11/23 PO 0843 Escitalopram Oxalate 20 MG DAILY 11/20 0900 AC 11/23 PO 0843 Heparin Sodium 5,000 UNIT .STK-MED ONE 11/22 1240 DC (Porcine) IV 11/22 1241 Heparin Sodium 2,586 UNIT ONCE ONE 11/22 1052 DC 11/22 (Porcine) IV 11/22 1053 1245 Heparin Sodium 25,000 UNIT Q24H 11/21 1645 AC 11/22 (Porcine) IV 1701 Sodium Chloride 500 ML Hydrocodone Bitart/ 1 TAB ONCE ONE 11/22 2100 DC 11/22 Acetaminophen PO 11/22 2101 2126 Insulin Aspart 0 AT BEDTIME 11/21 2100 AC SC Insulin Aspart 0 TIDAC 11/21 1700 AC 11/22 SC 1700 Insulin Detemir 14 UNITS BID 11/22 0900 AC 11/23 SC 0846 Metoprolol Succinate 12.5 MG DAILY 11/18 0900 AC 11/23 PO 0852 Mycophenolate Mofetil 1,000 MG BID 11/18 0900 AC 11/23 PO 0845 Nystatin 1 REBECCA BID 11/20 1845 AC 11/23 TOP 0857 Omeprazole 20 MG DAILY AC 11/18 0700 AC 11/23 PO 0605 Ramelteon 8 MG AT BEDTIME 11/19 2100 AC 11/22 PO 2015 Tacrolimus 5 MG 1000 11/23 1000 AC 11/23 PO 0851 Vancomycin HCl 1,000 MG 2300 11/18 2300 AC 11/22 Sodium Chloride 250 ML IV 2334 Vital Signs & I&O Last 24 Hrs of Vitals and I&O: Vital Signs Date Time Temp Pulse Resp B/P B/P Pulse O2 O2 Flow FiO2 Mean Ox Delivery Rate 11/23 0852 61 118/54 11/23 0844 61 118/54 11/23 0704 96.2 64 18 120/58 94 Room Air 11/22 2208 99.8 69 20 100/60 95 11/22 1440 97.7 68 20 110/70 95 11/22 1140 66 20 138/80 Intake & Output 11/23 1600 11/23 0800 11/23 0000 Intake Total 120 943.2 Output Total 1175 1100 Balance -1055 -156.8 Intake, IV 243.2 Intake, Oral 120 700 Output, Urine 1175 1100 Patient 166 lb Weight Weight Bed scale Measurement Method Laboratory Tests 11/23 11/23 11/22 0606 0350 2207 Chemistry Sodium (137 - 145 mmol/L) 139 Potassium (3.5 - 5.1 mmol/L) 4.6 Chloride (98 - 107 mmol/L) 104 Carbon Dioxide (22 - 30 mmol/L) 26 Anion Gap (5 - 16) 9 BUN (9 - 20 mg/dL) 35 H Creatinine (0.7 - 1.2 mg/dL) 1.3 H Estimated GFR (>60 ml/min) 55 L BUN/Creatinine Ratio (7 - 25 %) 26.9 H Coagulation APTT (25 - 37 SEC) 70 H 66 H Hematology CBC w Diff MAN DIFF ORDERED WBC (4.8 - 10.8 /CUMM) 7.3 RBC (4.70 - 6.10 /CUMM) 2.84 L Hgb (14.0 - 18.0 G/DL) 7.5 L Hct (42 - 52 %) 23.4 L MCV (80.0 - 94.0 FL) 82.2 MCH (27.0 - 31.0 PG) 26.2 L MCHC (33.0 - 37.0 G/DL) 31.9 L RDW (11.5 - 14.5 %) 17.4 H Plt Count (130 - 400 /CUMM) 339 MPV (7.4 - 10.4 FL) 7.9 Gran % (42.2 - 75.2 %) 74.9 Lymphocytes % (20.5 - 51.1 %) 10.1 L Monocytes % (1.7 - 9.3 %) 11.4 H Eosinophils % (0 - 5 %) 2.9 Basophils % (0.0 - 2.0 %) 0.7 Absolute Granulocytes (1.4 - 6.5 /CUMM) 5.4 Segmented Neutrophils (42.2 - 75.2 %) 67 Absolute Lymphocytes (1.2 - 3.4 /CUMM) 0.7 L Lymphocytes (20.5 - 51.1 %) 16 L Monocytes (1.7 - 9.3 %) 9 Absolute Monocytes (0.10 - 0.60 /CUMM) 0.8 H Eosinophils (0 - 5.0 %) 8 H Absolute Eosinophils (0.0 - 0.7 /CUMM) 0.2 Absolute Basophils (0.0 - 0.2 /CUMM) 0 Platelet Estimate (ADEQUATE) VERIFIED BY SMEAR Normocytic RBCs VERIFIED Normochromic RBCs VERIFIED Toxicology Vancomycin Trough (10.0 - 20.0 ug/mL) 12.0 11/22 11/22 11/22 2100 1610 0923 Coagulation APTT (25 - 37 SEC) 64 H 45 H Toxicology Vancomycin Trough Cancelled 11/22 11/22 11/21 0630 0130 1800 Chemistry Sodium (137 - 145 mmol/L) 139 Potassium (3.5 - 5.1 mmol/L) 5.1 Chloride (98 - 107 mmol/L) 102 Carbon Dioxide (22 - 30 mmol/L) 27 Anion Gap (5 - 16) 11 BUN (9 - 20 mg/dL) 38 H Creatinine (0.7 - 1.2 mg/dL) 1.5 H Estimated GFR (>60 ml/min) 46 L BUN/Creatinine Ratio (7 - 25 %) 25.3 H Coagulation APTT (25 - 37 SEC) 36 33 Hematology CBC w Diff MAN DIFF ORDERED WBC (4.8 - 10.8 /CUMM) 5.5 RBC (4.70 - 6.10 /CUMM) 3.24 L Hgb (14.0 - 18.0 G/DL) 8.6 L Hct (42 - 52 %) 26.5 L MCV (80.0 - 94.0 FL) 81.9 MCH (27.0 - 31.0 PG) 26.6 L MCHC (33.0 - 37.0 G/DL) 32.5 L RDW (11.5 - 14.5 %) 17.2 H Plt Count (130 - 400 /CUMM) 323 MPV (7.4 - 10.4 FL) 8.3 Gran % (42.2 - 75.2 %) 75.1 Lymphocytes % (20.5 - 51.1 %) 11.4 L Monocytes % (1.7 - 9.3 %) 7.8 Eosinophils % (0 - 5 %) 5.2 H Basophils % (0.0 - 2.0 %) 0.5 Absolute Granulocytes (1.4 - 6.5 /CUMM) 4.1 Segmented Neutrophils (42.2 - 75.2 %) 78 H Absolute Lymphocytes (1.2 - 3.4 /CUMM) 0.6 L Lymphocytes (20.5 - 51.1 %) 10 L Monocytes (1.7 - 9.3 %) 8 Absolute Monocytes (0.10 - 0.60 /CUMM) 0.4 Eosinophils (0 - 5.0 %) 4 Absolute Eosinophils (0.0 - 0.7 /CUMM) 0.3 Absolute Basophils (0.0 - 0.2 /CUMM) 0 Platelet Estimate (ADEQUATE) VERIFIED BY SMEAR Normocytic RBCs VERIFIED Normochromic RBCs VERIFIED Impression/Plan Impression/Plan Impression/Plan: Head: atraumatic, normal appearance Eyes:Bilateral: normal appearance, PERRL, EOMI. Ears, Nose, Throat: normal pharynx, normal ENT inspection, hearing grossly normal Neck: normal inspection, supple, full range of motion, no midline tenderness Respiratory: normal breath sounds, chest non-tender, no respiratory distress, quiet respiration, lungs clear Cardiovascular: normal peripheral pulses, irregularly irregular, norml femoral pulses equa Peripheral Pulses: 4+ carotid (R), 4+ carotid (L) Gastrointestinal: normal bowel sounds, soft, non-tender, no organomegaly Back: normal inspection, normal range of motion, no vertebral tenderness Extremities: no edema, pelvis stable, dressing with with chronic nonhealing ulcer seen Neurologic/Psych: normal Reflexes:2+: bicep (R), bicep (L). Lymphatic: no anterior cervical adenavf intact IMPRESSION This is a gentleman with s/p renal transplant on immunosupp with initial infected toe with osteo s/p previous surg, previous mrsa bacteremia, DM with * Recurrent MRSA sepsis and Recurrent osteo and infected foot who was recently on prolonged abx and multiple surgeries now with ongoing osteo and cellulitis- now scheduled for tma amputation * Previous neutopenia and anemia - was on neupogen / and initially thought to be due to vanco aswell and was on dapto * DM, autonomic neuropathy, gastropathy, pvd * Previous MRI showing very small punctate lesions prob ateromatous small emboli , on anticoag, and statin * PT with Pafib in Sinus and sig atheromatous aorta, small pfo, - on eloquis * H/o of Prolonged qtc, previous low mag need to continue to monitor * SHIRA with CKD s/p renal transplant, creat now up to 1.8 * DM insulin requiring * PVD, previous history of stoke, and previous toe amputation, now angioplasty of the lower limb with recent amputations * Previous secondary hyperparathyroid. Sig autonomic dysfunction was on fludocortisone * Pafib on eliquis (in sinus on amiodarone) (being dosed for renal function) * Depression and anxiety * Peripheral neuropathy REC * IV abx per ID, check and watch vanco levels * Watch hemoglobin and check stool for heme * Cont tacrolimus and mycophenolate * Await tac level today * Follow wbc and hgb daily * COnt abx / ID note appretiated * COnt all meds * Cont heparin * Keep sugars around 150 * Watch bp closely
--- NOTE | 2017-11-23 11:55 | PN- Infect Dx ---
Subjective Subjective: Afebrile without complaints Objective Last 24 Hrs of Vital Signs/I&O Vital Signs Date Time Temp Pulse Resp B/P B/P Pulse O2 O2 Flow FiO2 Mean Ox Delivery Rate 11/23 0852 61 118/54 11/23 0844 61 118/54 11/23 0704 96.2 64 18 120/58 94 Room Air 11/228 99.8 69 20 100/60 95 11/22 1440 97.7 68 20 110/70 95 Intake & Output 11/23 1600 11/23 0800 11/23 0000 Intake Total 120 943.2 Output Total 250 1175 1100 Balance -250 -1055 -156.8 Intake, IV 243.2 Intake, Oral 120 700 Output, Urine 250 1175 1100 Patient 166 lb Weight Weight Bed scale Measurement Method Physical Exam Other Physical Findings: He appears comfortable in no acute distress Chest Pro-Line in the right upper chest with no inflammation at the site Lungs are clear Heart regular rhythm with no murmur Extremities right foot dressing intact Results Last 24 Hours of Lab Results: Laboratory Tests 11/23 11/23 11/22 0606 0350 7 Chemistry Sodium (137 - 145 mmol/L) 139 Potassium (3.5 - 5.1 mmol/L) 4.6 Chloride (98 - 107 mmol/L) 104 Carbon Dioxide (22 - 30 mmol/L) 26 Anion Gap (5 - 16) 9 BUN (9 - 20 mg/dL) 35 H Creatinine (0.7 - 1.2 mg/dL) 1.3 H Estimated GFR (>60 ml/min) 55 L BUN/Creatinine Ratio (7 - 25 %) 26.9 H Coagulation APTT (25 - 37 SEC) 70 H 66 H Hematology CBC w Diff MAN DIFF ORDERED WBC (4.8 - 10.8 /CUMM) 7.3 RBC (4.70 - 6.10 /CUMM) 2.84 L Hgb (14.0 - 18.0 G/DL) 7.5 L Hct (42 - 52 %) 23.4 L MCV (80.0 - 94.0 FL) 82.2 MCH (27.0 - 31.0 PG) 26.2 L MCHC (33.0 - 37.0 G/DL) 31.9 L RDW (11.5 - 14.5 %) 17.4 H Plt Count (130 - 400 /CUMM) 339 MPV (7.4 - 10.4 FL) 7.9 Gran % (42.2 - 75.2 %) 74.9 Lymphocytes % (20.5 - 51.1 %) 10.1 L Monocytes % (1.7 - 9.3 %) 11.4 H Eosinophils % (0 - 5 %) 2.9 Basophils % (0.0 - 2.0 %) 0.7 Absolute Granulocytes (1.4 - 6.5 /CUMM) 5.4 Segmented Neutrophils (42.2 - 75.2 %) 67 Absolute Lymphocytes (1.2 - 3.4 /CUMM) 0.7 L Lymphocytes (20.5 - 51.1 %) 16 L Monocytes (1.7 - 9.3 %) 9 Absolute Monocytes (0.10 - 0.60 /CUMM) 0.8 H Eosinophils (0 - 5.0 %) 8 H Absolute Eosinophils (0.0 - 0.7 /CUMM) 0.2 Absolute Basophils (0.0 - 0.2 /CUMM) 0 Platelet Estimate (ADEQUATE) VERIFIED BY SMEAR Normocytic RBCs VERIFIED Normochromic RBCs VERIFIED Toxicology Vancomycin Trough (10.0 - 20.0 ug/mL) 12.0 11/22 11/22 2100 1610 Coagulation APTT (25 - 37 SEC) 64 H Toxicology Vancomycin Trough Cancelled Last 24 Hours of Joel Results: Blood cultures 2 November 19 remain negative Assessment/Plan ID Impression: Recurrent MRSA sepsis, presumably secondary to his right foot infection, status post open partial second ray resection 5 days ago for gas gangrene/osteomyelitis , with his temperatures and white blood cell count remaining normal on Vancomycin Day 5 for residual osteomyelitis. His Vancomycin trough level of 12 is noted and, given his clinical improvement, he can be continued on the current dose. He is scheduled for a right TMA on November 25, but suspect he will ultimately require a right BKA, which has been recommended by Podiatry on several occasions. His echocardiogram did not reveal any vegetations but will discuss further with Cardiology given his recurrent bacteremia. Suggestion: 1. Await right transmetatarsal amputation, scheduled for November 25 2. Will discuss Echocardiogram with Cardiology 3. Continue Vancomycin
--- NOTE | 2017-11-23 12:58 | PN- Nephrology ---
Assessment/Plan Nephrology Assessment: 1. CKD stage III status post DDKT 2014; renal function back to baseline 2. Osteomyelitis right foot 3. Anemia - getting worse 4. Recurrent MRSA bacteremia raising possibility of endocarditis 5. Diabetes mellitus 6. History of atrial fibrillation 7. Status post CVA in 2006 Suggestion: 1. Continue current immunosuppressive regimen 2. Would repeat a tacrolimus level but please be sure that it is a trough level - to be drawn just prior to his daily morning dose 3. Begin Procrit 20,000 units subcutaneous every 2 weeks Subjective Subjective: Patient remains afebrile and has no complaints today. Of note, creatinine down to baseline level of 1.3. WBC 7.3, hematocrit down to 23.4. Awaiting right TMA this coming Tuesday. Objective Vital Signs and I&Os Vital Signs Date Time Temp Pulse Resp B/P B/P Pulse O2 O2 Flow FiO2 Mean Ox Delivery Rate 11/23 0852 61 118/54 11/23 0844 61 118/54 11/23 0704 96.2 64 18 120/58 94 Room Air 11/22 2208 99.8 69 20 100/60 95 11/22 1440 97.7 68 20 110/70 95 Intake & Output 11/23 1600 11/23 0400 11/22 1600 11/22 0400 11/21 1600 11/21 0400 Intake Total 120 943.2 1910.40 860 1380 850 Output Total 825 1700 1125 2100 Balance -705 -756.8 785.40 860 -720 850 Intake, IV 243.2 690.40 160 900 250 Intake, Oral 686 548 9668 700 480 600 Number 0 Bowel Movements Output, Urine 825 1700 1125 2100 Patient 166 lb 194 lb 190 lb 196 lb Weight Weight Bed scale Bed scale Measurement Method Physical Exam: General: Well-developed white male in NAD Skin: No rash or jaundice; multiple senile keratoses; no petechiae or splinter hemorrhages HEENT: Conjunctivae pale, sclerae anicteric, mucous membranes moist Neck: Without masses or thyromegaly, no supraclavicular or cervical adenopathy Chest: Clear to P&A Heart: Regular rate and rhythm without S3 or rub Abdomen: Soft and nontender without palpable masses or organomegaly Extremities: Without cyanosis or edema; right foot dressing intact Neuro: Awake, alert and oriented, no focal findings, no asterixis or myoclonus Results Pertinent Lab Results: Laboratory Tests 11/23 11/23 11/22 0606 0350 2207 Chemistry Sodium (137 - 145 mmol/L) 139 Potassium (3.5 - 5.1 mmol/L) 4.6 Chloride (98 - 107 mmol/L) 104 Carbon Dioxide (22 - 30 mmol/L) 26 Anion Gap (5 - 16) 9 BUN (9 - 20 mg/dL) 35 H Creatinine (0.7 - 1.2 mg/dL) 1.3 H Estimated GFR (>60 ml/min) 55 L BUN/Creatinine Ratio (7 - 25 %) 26.9 H Coagulation APTT (25 - 37 SEC) 70 H 66 H Hematology CBC w Diff MAN DIFF ORDERED WBC (4.8 - 10.8 /CUMM) 7.3 RBC (4.70 - 6.10 /CUMM) 2.84 L Hgb (14.0 - 18.0 G/DL) 7.5 L Hct (42 - 52 %) 23.4 L MCV (80.0 - 94.0 FL) 82.2 MCH (27.0 - 31.0 PG) 26.2 L MCHC (33.0 - 37.0 G/DL) 31.9 L RDW (11.5 - 14.5 %) 17.4 H Plt Count (130 - 400 /CUMM) 339 MPV (7.4 - 10.4 FL) 7.9 Gran % (42.2 - 75.2 %) 74.9 Lymphocytes % (20.5 - 51.1 %) 10.1 L Monocytes % (1.7 - 9.3 %) 11.4 H Eosinophils % (0 - 5 %) 2.9 Basophils % (0.0 - 2.0 %) 0.7 Absolute Granulocytes (1.4 - 6.5 /CUMM) 5.4 Segmented Neutrophils (42.2 - 75.2 %) 67 Absolute Lymphocytes (1.2 - 3.4 /CUMM) 0.7 L Lymphocytes (20.5 - 51.1 %) 16 L Monocytes (1.7 - 9.3 %) 9 Absolute Monocytes (0.10 - 0.60 /CUMM) 0.8 H Eosinophils (0 - 5.0 %) 8 H Absolute Eosinophils (0.0 - 0.7 /CUMM) 0.2 Absolute Basophils (0.0 - 0.2 /CUMM) 0 Platelet Estimate (ADEQUATE) VERIFIED BY SMEAR Normocytic RBCs VERIFIED Normochromic RBCs VERIFIED Toxicology Vancomycin Trough (10.0 - 20.0 ug/mL) 12.0 11/22 11/22 11/22 2100 1610 0923 Coagulation APTT (25 - 37 SEC) 64 H 45 H Toxicology Vancomycin Trough Cancelled 11/22 11/22 11/21 0630 0130 1800 Chemistry Sodium (137 - 145 mmol/L) 139 Potassium (3.5 - 5.1 mmol/L) 5.1 Chloride (98 - 107 mmol/L) 102 Carbon Dioxide (22 - 30 mmol/L) 27 Anion Gap (5 - 16) 11 BUN (9 - 20 mg/dL) 38 H Creatinine (0.7 - 1.2 mg/dL) 1.5 H Estimated GFR (>60 ml/min) 46 L BUN/Creatinine Ratio (7 - 25 %) 25.3 H Coagulation APTT (25 - 37 SEC) 36 33 Hematology CBC w Diff MAN DIFF ORDERED WBC (4.8 - 10.8 /CUMM) 5.5 RBC (4.70 - 6.10 /CUMM) 3.24 L Hgb (14.0 - 18.0 G/DL) 8.6 L Hct (42 - 52 %) 26.5 L MCV (80.0 - 94.0 FL) 81.9 MCH (27.0 - 31.0 PG) 26.6 L MCHC (33.0 - 37.0 G/DL) 32.5 L RDW (11.5 - 14.5 %) 17.2 H Plt Count (130 - 400 /CUMM) 323 MPV (7.4 - 10.4 FL) 8.3 Gran % (42.2 - 75.2 %) 75.1 Lymphocytes % (20.5 - 51.1 %) 11.4 L Monocytes % (1.7 - 9.3 %) 7.8 Eosinophils % (0 - 5 %) 5.2 H Basophils % (0.0 - 2.0 %) 0.5 Absolute Granulocytes (1.4 - 6.5 /CUMM) 4.1 Segmented Neutrophils (42.2 - 75.2 %) 78 H Absolute Lymphocytes (1.2 - 3.4 /CUMM) 0.6 L Lymphocytes (20.5 - 51.1 %) 10 L Monocytes (1.7 - 9.3 %) 8 Absolute Monocytes (0.10 - 0.60 /CUMM) 0.4 Eosinophils (0 - 5.0 %) 4 Absolute Eosinophils (0.0 - 0.7 /CUMM) 0.3 Absolute Basophils (0.0 - 0.2 /CUMM) 0 Platelet Estimate (ADEQUATE) VERIFIED BY SMEAR Normocytic RBCs VERIFIED Normochromic RBCs VERIFIED 11/21 0540 Chemistry Sodium (137 - 145 mmol/L) 137 Potassium (3.5 - 5.1 mmol/L) 4.9 Chloride (98 - 107 mmol/L) 102 Carbon Dioxide (22 - 30 mmol/L) 24 Anion Gap (5 - 16) 11 BUN (9 - 20 mg/dL) 39 H Creatinine (0.7 - 1.2 mg/dL) 1.6 H Estimated GFR (>60 ml/min) 43 L BUN/Creatinine Ratio (7 - 25 %) 24.4 Hematology CBC w Diff NO MAN DIFF REQ WBC (4.8 - 10.8 /CUMM) 5.7 RBC (4.70 - 6.10 /CUMM) 3.17 L Hgb (14.0 - 18.0 G/DL) 8.4 L Hct (42 - 52 %) 25.8 L MCV (80.0 - 94.0 FL) 81.4 MCH (27.0 - 31.0 PG) 26.5 L MCHC (33.0 - 37.0 G/DL) 32.6 L RDW (11.5 - 14.5 %) 17.5 H Plt Count (130 - 400 /CUMM) 286 MPV (7.4 - 10.4 FL) 8.3 Gran % (42.2 - 75.2 %) 75.5 H Lymphocytes % (20.5 - 51.1 %) 10.5 L Monocytes % (1.7 - 9.3 %) 9.6 H Eosinophils % (0 - 5 %) 3.8 Basophils % (0.0 - 2.0 %) 0.6 Absolute Granulocytes (1.4 - 6.5 /CUMM) 4.3 Absolute Lymphocytes (1.2 - 3.4 /CUMM) 0.6 L Absolute Monocytes (0.10 - 0.60 /CUMM) 0.5 Absolute Eosinophils (0.0 - 0.7 /CUMM) 0.2 Absolute Basophils (0.0 - 0.2 /CUMM) 0 Toxicology Tacrolimus (() mcg/L) 11.0
[2017-11-23 14:02] VITALS: BP 112/60
[2017-11-23 19:02] LABS: ABSOLUTE BASOPHIL COUNT 0 /CUMM (0.0-0.2); ABSOLUTE EOSINOPHIL COUNT 0.2 /CUMM (0.0-0.7); ABSOLUTE GRANULOCYTE CT 4.2 /CUMM (1.4-6.5); ABSOLUTE LYMPH COUNT 0.7 /CUMM (1.2-3.4); ABSOLUTE MONOCYTE COUNT 0.6 /CUMM (0.10-0.60); BASOPHIL % 0.5 % (0.0-2.0); EOSINOPHIL % 3.4 % (0-5); HEMATOCRIT 25.7 % (42-52); MEAN CORPUSCULAR HGB CONC 32.9 G/DL (33.0-37.0); MEAN CORPUSCULAR VOLUME 82.2 FL (80.0-94.0); MEAN PLATELET VOLUME 7.6 FL (7.4-10.4); PLATELET COUNT 326 /CUMM (130-400); RBC DISTRIBUTION WIDTH 17.2 % (11.5-14.5); RED BLOOD CELL CT 3.12 /CUMM (4.70-6.10); WHITE BLOOD CELL COUNT 5.7 /CUMM (4.8-10.8)
[2017-11-23 19:21] LABS: GRANULOCYTE % 73.9 % (42.2-75.2); PTT 42 SEC (25-37)
[2017-11-23 22:12] VITALS: BP 114/80
[2017-11-24 05:08] LABS: ABSOLUTE BASOPHIL COUNT 0 /CUMM (0.0-0.2); ABSOLUTE EOSINOPHIL COUNT 0.2 /CUMM (0.0-0.7); ABSOLUTE GRANULOCYTE CT 3.2 /CUMM (1.4-6.5); ABSOLUTE LYMPH COUNT 0.7 /CUMM (1.2-3.4); ABSOLUTE MONOCYTE COUNT 0.5 /CUMM (0.10-0.60); BASOPHIL % 0.4 % (0.0-2.0); EOSINOPHIL % 4.8 % (0-5); GRANULOCYTE % 68.9 % (42.2-75.2); HEMATOCRIT 23.2 % (42-52); MEAN CORPUSCULAR HGB 26.1 PG (27.0-31.0); MEAN CORPUSCULAR VOLUME 81.5 FL (80.0-94.0); MEAN PLATELET VOLUME 7.2 FL (7.4-10.4); PLATELET COUNT 306 /CUMM (130-400); RBC DISTRIBUTION WIDTH 17.6 % (11.5-14.5); RED BLOOD CELL CT 2.84 /CUMM (4.70-6.10); WHITE BLOOD CELL COUNT 4.7 /CUMM (4.8-10.8)
[2017-11-24 05:14] LABS: PTT 75 SEC (25-37)
[2017-11-24 06:24] VITALS: BP 100/50
--- NOTE | 2017-11-24 07:26 | PN- Housestaff ---
Subjective Follow-up For: #Osteomyelitis of right second MTP status post debridement #SHIRA and CKD #Anemia Subjective: Patient offers no complaints Review of Systems Constitutional: Reports: see HPI. Objective Last 24 Hrs of Vital Signs/I&O Vital Signs Date Time Temp Pulse Resp B/P B/P Pulse O2 O2 Flow FiO2 Mean Ox Delivery Rate 11/24 1032 62 122/60 11/24 1029 62 122/60 11/24 0624 97.6 58 20 100/50 94 Room Air 11/23 2212 98.1 86 20 114/80 91 Room Air 11/23 1402 98.4 58 15 112/60 95 Room Air Intake & Output 11/24 1600 11/24 0800 11/24 0000 Intake Total 751.2 1050 Output Total 1475 920 Balance -723.8 130 Intake, IV 291.2 250 Intake, Oral 460 800 Output, Urine 1475 920 Physical Exam General Appearance: Alert, Oriented X3, Cooperative, No Acute Distress Cardiovascular: Regular Rate, Normal S1, Normal S2 Lungs: Clear to Auscultation, Normal Air Movement Abdomen: Normal Bowel Sounds, Soft, No Tenderness Current Medications: Current Medications Sig/Ira Start time Last Medication Dose Route Stop Time Status Admin Acetaminophen 650 MG Q6P PRN 11/18 0245 AC 11/21 PO 1620 Alprazolam 0.5 MG DAILY NEEDED PRN 11/18 0300 AC 11/23 PO 11/25 0259 2037 Amiodarone HCl 100 MG DAILY 11/18 0900 AC 11/24 PO 1029 Atorvastatin Calcium 10 MG DAILY 11/18 0900 AC 11/24 PO 1028 Calcitriol 0.25 MCG DAILY 11/19 1159 AC 11/24 PO 1028 Calcium Carbonate 500 MG TID 11/19 1400 AC 11/24 PO 1035 Cholecalciferol 2,000 IU DAILY 11/19 1200 AC 11/24 PO 1027 Epoetin Onofre 20,000 U EVERY 2 WEEKS 11/23 1700 AC 11/23 SC 1720 Epoetin Onofre 20,000 UNITS EVERY 2 WEEKS 11/23 1615 DC IV Escitalopram Oxalate 20 MG DAILY 11/20 0900 AC 11/24 PO 1028 Heparin Sodium 5,000 UNIT .STK-MED ONE 11/23 2205 DC (Porcine) IV 11/23 2206 Heparin Sodium 4,500 UNIT ONCE ONE 11/23 2199 DC 11/23 (Porcine) IV 11/23 220 221 Heparin Sodium 25,000 UNIT Q24H 11/21 1645 AC 11/24 (Porcine) IV 0521 Sodium Chloride 500 ML Insulin Aspart 0 AT BEDTIME 11/21 2100 AC SC Insulin Aspart 0 TIDAC 11/21 1700 AC 11/24 SC 0900 Insulin Detemir 12 UNITS BID 11/23 2100 AC 11/24 SC 1030 Insulin Detemir 14 UNITS BID 11/22 0900 DC 11/23 SC 0846 Melatonin 5 MG AT BEDTIME PRN 11/23 2215 AC 11/23 PO 2210 Metoprolol Succinate 12.5 MG DAILY 11/18 0900 AC 11/24 PO 1032 Mycophenolate Mofetil 1,000 MG BID 11/18 0900 AC 11/24 PO 1026 Nystatin 1 REBECCA BID 11/20 1845 AC 11/24 TOP 1028 Omeprazole 20 MG DAILY AC 11/18 0700 AC 11/24 PO 0551 Ramelteon 8 MG AT BEDTIME 11/19 2100 AC 11/23 PO 2035 Tacrolimus 5 MG 1000 11/23 1000 AC 11/24 PO 1030 Vancomycin HCl 1,000 MG 2300 11/18 2300 AC 11/23 Sodium Chloride 250 ML IV 2211 Last 24 Hrs of Lab/Joel Results Last 24 Hrs of Labs/Mics: Laboratory Tests 11/24/17 0600: Tacrolimus Cancelled 11/24/17 0430: APTT 75 H 11/24/17 0430: Anion Gap 11, Estimated GFR 50 L, BUN/Creatinine Ratio 22.9, APTT Cancelled, CBC w Diff MAN DIFF ORDERED, RBC 2.84 L, MCV 81.5, MCH 26.1 L, MCHC 32.0 L, RDW 17.6 H, MPV 7.2 L, Gran % 68.9, Lymphocytes % 14.3 L, Monocytes % 11.6 H , Eosinophils % 4.8, Basophils % 0.4, Absolute Granulocytes 3.2, Segmented Neutrophils 73, Absolute Lymphocytes 0.7 L, Lymphocytes 12 L, Monocytes 10 H, Absolute Monocytes 0.5, Eosinophils 4, Absolute Eosinophils 0.2, Basophils 1, Absolute Basophils 0, Platelet Estimate ADEQUATE, Polychromasia 1+, Hypochromic- Microcytic 1+, Poikilocytosis 1+, Ovalocytes 1+, Fld Total RBCs Counted 100 11/23/17 1800: APTT 42 H, CBC w Diff NO MAN DIFF REQ, RBC 3.12 L, MCV 82.2, MCH 27.0, MCHC 32.9 L, RDW 17.2 H, MPV 7.6, Gran % 73.9, Lymphocytes % 12.2 L, Monocytes % 10.0 H, Eosinophils % 3.4, Basophils % 0.5, Absolute Granulocytes 4.2, Absolute Lymphocytes 0.7 L, Absolute Monocytes 0.6, Absolute Eosinophils 0.2, Absolute Basophils 0 11/23/17 1600: CBC w Diff Cancelled, WBC Cancelled, RBC Cancelled, Hgb Cancelled, Hct Cancelled , MCV Cancelled, MCH Cancelled, MCHC Cancelled, RDW Cancelled, Plt Count Cancelled, MPV Cancelled Assessment/Plan Assessment: Mr. Edouard is a 71-year-old male presented to ED with fever, chills and nausea with past medical history of significant for ESRD status post renal transplant on tacrolimus and CellCept, paroxysmal atrial fibrillation on Eliquis, HTN, HLD, CVA, DM, osteomyelitis of the right distal phalanx of the right great toe status post partial amputation 09/09/17 with positive pathology for osteomyelitis, blood and OR culture growing Escherichia coli, Citrobacter and MRSA, wound had clean margins Problem list: #Osteomyelitis of right second MTP status post debridement #SHIRA and CKD #Anemia Plan: * Hemoccult stools due to drop in hgb 8.6>>7.4 * Repeat CBC for 6 pm * Continue Levemir from 12U BID as per Endo * Stress tesing wnl * Continue vancomycin * Tacrolimis trough level pending * Continue tacrolimus and CellCept * Rnqg-[id number] scale NovoLog insulin * Continue amiodarone, metoprolol for PAF * We will continue IV Heparin until postop Tuesday then resume Apixaban thereafter as per Podiatry * Echo showed Moderate concentric left ventricular hypertrophy with an EF of 55- 60 %. No obvious regional wall motion abnormalities. * Appreciate Endo, podiatry, ID, vascular surgery, nephrology, cardio recommendations * TKA scheduled for Tuesday Code-full code Diet-diabetic diet Problem List: 1. Osteomyelitis Pain Ratin Pain Location: NA Pain Goal: Remain pain free Pain Plan: NA Tomorrow's Labs & Rationales: CBC, BEP
--- NOTE | 2017-11-24 08:28 | PN- Diabetes ---
Assessment/Plan Diabetes Assessment: The patient feels okay. He is to be scheduled for further surgery on his right foot tomorrow. Stick blood sugars revealed that his sugars became somewhat elevated later in the day yesterday. This was because his sugar was 72 before breakfast and he did not get any coverage for that meal. Thereafter his sugars went into the mid 200s. This morning his fasting blood sugar was 124. He is presently on Levemir 12 units twice a day along with sliding scale NovoLog. Plan: Suggest that while the patient is eating he can stay on his present insulin regimen. If he is made n.p.o. after midnight tonight we should reduce his Levemir to 6 units tonight. In addition we should begin D5 half-normal saline at 50 cc/h. at midnight. While he is n.p.o. we should cover him with NovoLog every 4 hours for sugars above 150. NovoLog coverage every 4 hours while n.p.o. should be less than 150 give no insulin, 151-200 give 2 units NovoLog, 201-250 give 3 units NovoLog, 251-300 give 3 units NovoLog, 301-350 give 4 units NovoLog, 351-400 give 5 units NovoLog. When the patient is eating again we should resume his usual dose of Levemir and his usual mealtime insulin with a separate sliding scale at bedtime as previously written. Subjective Subjective: Feels okay Review of Systems Constitutional: Denies: chills, fever. Cardiovascular: Denies: chest pain. Respiratory: Denies: cough, short of breath. Gastrointestinal: Denies: abdominal pain. Objective Last 24 Hrs of Vital Signs/I&O Vital Signs Date Time Temp Pulse Resp B/P B/P Pulse O2 O2 Flow FiO2 Mean Ox Delivery Rate 11/25 623 97.6 58 20 100/50 94 Room Air 11/23 2212 98.1 86 20 114/80 91 Room Air 11/23 1402 98.4 58 15 112/60 95 Room Air 11/23 0852 61 118/54 11/23 0844 61 118/54 Intake & Output 11/24 1600 11/24 0800 11/24 0000 Intake Total 751.2 1050 Output Total 1475 920 Balance -723.8 130 Intake, IV 291.2 250 Intake, Oral 460 800 Output, Urine 1475 920 Vital Signs Date Time Temp Pulse Resp B/P B/P Pulse O2 O2 Flow FiO2 Mean Ox Delivery Rate 11/25 623 97.6 58 20 100/50 94 Room Air 11/23 221 98.1 86 20 114/80 91 Room Air 11/23 1402 98.4 58 15 112/60 95 Room Air 11/23 0852 61 118/54 11/23 0844 61 118/54 Intake & Output 11/24 1600 11/24 0800 11/24 0000 Intake Total 751.2 1050 Output Total 1475 920 Balance -723.8 130 Intake, IV 291.2 250 Intake, Oral 460 800 Output, Urine 1475 920 Physical Exam General Appearance: alert, awake, comfortable Head: normal appearance Neck: normal inspection Respiratory: normal breath sounds Cardiovascular: regular rate/rhythm Abdomen: normal bowel sounds Extremities: right foot bandaged Current Medications: Current Medications Sig/Ira Start time Last Medication Dose Route Stop Time Status Admin Acetaminophen 650 MG Q6P PRN 11/18 0245 AC 11/21 PO 1620 Alprazolam 0.5 MG DAILY NEEDED PRN 11/18 0300 AC 11/23 PO 11/25 0259 2037 Amiodarone HCl 100 MG DAILY 11/18 0900 AC 11/23 PO 0844 Atorvastatin Calcium 10 MG DAILY 11/18 0900 AC 11/23 PO 0844 Calcitriol 0.25 MCG DAILY 11/19 1159 AC 11/23 PO 0844 Calcium Carbonate 500 MG TID 11/19 1400 AC 11/23 PO 2035 Cholecalciferol 2,000 IU DAILY 11/19 1200 AC 11/23 PO 0843 Epoetin Onofre 20,000 U EVERY 2 WEEKS 11/23 1700 AC 11/23 SC 1720 Epoetin Onofre 20,000 UNITS EVERY 2 WEEKS 11/23 1615 DC IV Escitalopram Oxalate 20 MG DAILY 11/20 0900 AC 11/23 PO 0843 Heparin Sodium 5,000 UNIT .STK-MED ONE 11/23 2205 DC (Porcine) IV 11/23 2206 Heparin Sodium 4,500 UNIT ONCE ONE 11/23 2199 DC 11/23 (Porcine) IV 11/23 2200 221 Heparin Sodium 25,000 UNIT Q24H 11/21 1645 AC 11/24 (Porcine) IV 05 Sodium Chloride 500 ML Insulin Aspart 0 AT BEDTIME 11/21 2100 AC SC Insulin Aspart 0 TIDAC 11/21 1700 AC 11/23 SC 1719 Insulin Detemir 12 UNITS BID 11/23 2100 AC 11/23 SC 203 Insulin Detemir 14 UNITS BID 11/22 0900 DC 11/23 SC 0846 Melatonin 5 MG AT BEDTIME PRN 11/23 2215 AC 11/23 PO 2210 Metoprolol Succinate 12.5 MG DAILY 11/18 0900 AC 11/23 PO 0852 Mycophenolate Mofetil 1,000 MG BID 11/18 0900 AC 11/23 PO 2034 Nystatin 1 REBECCA BID 11/20 1845 AC 11/23 TOP 2034 Omeprazole 20 MG DAILY AC 11/18 0700 AC 11/24 PO 0551 Ramelteon 8 MG AT BEDTIME 11/19 2099 AC 11/23 PO 2034 Tacrolimus 5 MG 1000 11/23 1000 AC 11/23 PO 0851 Vancomycin HCl 1,000 MG 2300 11/18 2300 AC 11/23 Sodium Chloride 250 ML IV 221 Findings Pertinent Lab/Joel Results: Laboratory Tests 11/24 11/24 11/24 0600 0430 0430 Chemistry Sodium (137 - 145 mmol/L) 140 Potassium (3.5 - 5.1 mmol/L) 5.3 H Chloride (98 - 107 mmol/L) 104 Carbon Dioxide (22 - 30 mmol/L) 26 Anion Gap (5 - 16) 11 BUN (9 - 20 mg/dL) 32 H Creatinine (0.7 - 1.2 mg/dL) 1.4 H Estimated GFR (>60 ml/min) 50 L BUN/Creatinine Ratio (7 - 25 %) 22.9 Coagulation APTT (25 - 37 SEC) 75 H Cancelled Hematology CBC w Diff MAN DIFF ORDERED WBC (4.8 - 10.8 /CUMM) 4.7 L RBC (4.70 - 6.10 /CUMM) 2.84 L Hgb (14.0 - 18.0 G/DL) 7.4 *L Hct (42 - 52 %) 23.2 L MCV (80.0 - 94.0 FL) 81.5 MCH (27.0 - 31.0 PG) 26.1 L MCHC (33.0 - 37.0 G/DL) 32.0 L RDW (11.5 - 14.5 %) 17.6 H Plt Count (130 - 400 /CUMM) 306 MPV (7.4 - 10.4 FL) 7.2 L Gran % (42.2 - 75.2 %) 68.9 Lymphocytes % (20.5 - 51.1 %) 14.3 L Monocytes % (1.7 - 9.3 %) 11.6 H Eosinophils % (0 - 5 %) 4.8 Basophils % (0.0 - 2.0 %) 0.4 Absolute Granulocytes (1.4 - 6.5 /CUMM) 3.2 Segmented Neutrophils (42.2 - 75.2 %) 73 Absolute Lymphocytes (1.2 - 3.4 /CUMM) 0.7 L Lymphocytes (20.5 - 51.1 %) 12 L Monocytes (1.7 - 9.3 %) 10 H Absolute Monocytes (0.10 - 0.60 /CUMM) 0.5 Eosinophils (0 - 5.0 %) 4 Absolute Eosinophils (0.0 - 0.7 /CUMM) 0.2 Basophils (0.0 - 2.0 %) 1 Absolute Basophils (0.0 - 0.2 /CUMM) 0 Platelet Estimate (ADEQUATE) ADEQUATE Polychromasia 1+ Hypochromic-Microcytic 1+ Poikilocytosis 1+ Ovalocytes 1+ Other Body Source Fld Total RBCs Counted (%) 100 Toxicology Tacrolimus Cancelled 11/23 11/23 1800 1600 Coagulation APTT (25 - 37 SEC) 42 H Hematology CBC w Diff NO MAN DIFF REQ Cancelled WBC (4.8 - 10.8 /CUMM) 5.7 Cancelled RBC (4.70 - 6.10 /CUMM) 3.12 L Cancelled Hgb (14.0 - 18.0 G/DL) 8.4 L Cancelled Hct (42 - 52 %) 25.7 L Cancelled MCV (80.0 - 94.0 FL) 82.2 Cancelled MCH (27.0 - 31.0 PG) 27.0 Cancelled MCHC (33.0 - 37.0 G/DL) 32.9 L Cancelled RDW (11.5 - 14.5 %) 17.2 H Cancelled Plt Count (130 - 400 /CUMM) 326 Cancelled MPV (7.4 - 10.4 FL) 7.6 Cancelled Gran % (42.2 - 75.2 %) 73.9 Lymphocytes % (20.5 - 51.1 %) 12.2 L Monocytes % (1.7 - 9.3 %) 10.0 H Eosinophils % (0 - 5 %) 3.4 Basophils % (0.0 - 2.0 %) 0.5 Absolute Granulocytes (1.4 - 6.5 /CUMM) 4.2 Absolute Lymphocytes (1.2 - 3.4 /CUMM) 0.7 L Absolute Monocytes (0.10 - 0.60 /CUMM) 0.6 Absolute Eosinophils (0.0 - 0.7 /CUMM) 0.2 Absolute Basophils (0.0 - 0.2 /CUMM) 0 11/23 11/23 11/22 0606 0350 2207 Chemistry Sodium (137 - 145 mmol/L) 139 Potassium (3.5 - 5.1 mmol/L) 4.6 Chloride (98 - 107 mmol/L) 104 Carbon Dioxide (22 - 30 mmol/L) 26 Anion Gap (5 - 16) 9 BUN (9 - 20 mg/dL) 35 H Creatinine (0.7 - 1.2 mg/dL) 1.3 H Estimated GFR (>60 ml/min) 55 L BUN/Creatinine Ratio (7 - 25 %) 26.9 H Iron (49 - 181 ug/dL) 31 L TIBC (261 - 462 ug/dL) 205 L % Saturation (16 - 45 %) 15 L Ferritin (17.9 - 464 ng/mL) 936.0 H Coagulation APTT (25 - 37 SEC) 70 H 66 H Hematology CBC w Diff MAN DIFF ORDERED WBC (4.8 - 10.8 /CUMM) 7.3 RBC (4.70 - 6.10 /CUMM) 2.84 L Hgb (14.0 - 18.0 G/DL) 7.5 L Hct (42 - 52 %) 23.4 L MCV (80.0 - 94.0 FL) 82.2 MCH (27.0 - 31.0 PG) 26.2 L MCHC (33.0 - 37.0 G/DL) 31.9 L RDW (11.5 - 14.5 %) 17.4 H Plt Count (130 - 400 /CUMM) 339 MPV (7.4 - 10.4 FL) 7.9 Gran % (42.2 - 75.2 %) 74.9 Lymphocytes % (20.5 - 51.1 %) 10.1 L Monocytes % (1.7 - 9.3 %) 11.4 H Eosinophils % (0 - 5 %) 2.9 Basophils % (0.0 - 2.0 %) 0.7 Absolute Granulocytes (1.4 - 6.5 /CUMM) 5.4 Segmented Neutrophils (42.2 - 75.2 %) 67 Absolute Lymphocytes (1.2 - 3.4 /CUMM) 0.7 L Lymphocytes (20.5 - 51.1 %) 16 L Monocytes (1.7 - 9.3 %) 9 Absolute Monocytes (0.10 - 0.60 /CUMM) 0.8 H Eosinophils (0 - 5.0 %) 8 H Absolute Eosinophils (0.0 - 0.7 /CUMM) 0.2 Absolute Basophils (0.0 - 0.2 /CUMM) 0 Platelet Estimate (ADEQUATE) VERIFIED BY SMEAR Normocytic RBCs VERIFIED Normochromic RBCs VERIFIED Toxicology Vancomycin Trough (10.0 - 20.0 ug/mL) 12.0 11/22 11/22 11/22 3348 7988 1612 Coagulation APTT (25 - 37 SEC) 64 H 45 H Toxicology Vancomycin Trough Cancelled
--- NOTE | 2017-11-24 10:44 | PN- Infect Dx ---
Subjective Subjective: Afebrile without complaints Objective Last 24 Hrs of Vital Signs/I&O Vital Signs Date Time Temp Pulse Resp B/P B/P Pulse O2 O2 Flow FiO2 Mean Ox Delivery Rate 11/24 1032 62 122/60 11/24 1029 62 122/60 11/24 0624 97.6 58 20 100/50 94 Room Air 11/23 2212 98.1 86 20 114/80 91 Room Air 11/23 1402 98.4 58 15 112/60 95 Room Air Intake & Output 11/24 1600 11/24 0800 11/24 0000 Intake Total 751.2 1050 Output Total 1475 920 Balance -723.8 130 Intake, IV 291.2 250 Intake, Oral 460 800 Output, Urine 1475 920 Physical Exam Other Physical Findings: He appears comfortable in no acute distress Chest Pro-Line in the right upper chest with no inflammation at the site Extremities right foot dressing intact Results Last 24 Hours of Lab Results: Laboratory Tests 11/24 11/24 11/24 0600 0430 0430 Chemistry Sodium (137 - 145 mmol/L) 140 Potassium (3.5 - 5.1 mmol/L) 5.3 H Chloride (98 - 107 mmol/L) 104 Carbon Dioxide (22 - 30 mmol/L) 26 Anion Gap (5 - 16) 11 BUN (9 - 20 mg/dL) 32 H Creatinine (0.7 - 1.2 mg/dL) 1.4 H Estimated GFR (>60 ml/min) 50 L BUN/Creatinine Ratio (7 - 25 %) 22.9 Coagulation APTT (25 - 37 SEC) 75 H Cancelled Hematology CBC w Diff MAN DIFF ORDERED WBC (4.8 - 10.8 /CUMM) 4.7 L RBC (4.70 - 6.10 /CUMM) 2.84 L Hgb (14.0 - 18.0 G/DL) 7.4 *L Hct (42 - 52 %) 23.2 L MCV (80.0 - 94.0 FL) 81.5 MCH (27.0 - 31.0 PG) 26.1 L MCHC (33.0 - 37.0 G/DL) 32.0 L RDW (11.5 - 14.5 %) 17.6 H Plt Count (130 - 400 /CUMM) 306 MPV (7.4 - 10.4 FL) 7.2 L Gran % (42.2 - 75.2 %) 68.9 Lymphocytes % (20.5 - 51.1 %) 14.3 L Monocytes % (1.7 - 9.3 %) 11.6 H Eosinophils % (0 - 5 %) 4.8 Basophils % (0.0 - 2.0 %) 0.4 Absolute Granulocytes (1.4 - 6.5 /CUMM) 3.2 Segmented Neutrophils (42.2 - 75.2 %) 73 Absolute Lymphocytes (1.2 - 3.4 /CUMM) 0.7 L Lymphocytes (20.5 - 51.1 %) 12 L Monocytes (1.7 - 9.3 %) 10 H Absolute Monocytes (0.10 - 0.60 /CUMM) 0.5 Eosinophils (0 - 5.0 %) 4 Absolute Eosinophils (0.0 - 0.7 /CUMM) 0.2 Basophils (0.0 - 2.0 %) 1 Absolute Basophils (0.0 - 0.2 /CUMM) 0 Platelet Estimate (ADEQUATE) ADEQUATE Polychromasia 1+ Hypochromic-Microcytic 1+ Poikilocytosis 1+ Ovalocytes 1+ Other Body Source Fld Total RBCs Counted (%) 100 Toxicology Tacrolimus Cancelled 11/23 11/23 1800 1600 Coagulation APTT (25 - 37 SEC) 42 H Hematology CBC w Diff NO MAN DIFF REQ Cancelled WBC (4.8 - 10.8 /CUMM) 5.7 Cancelled RBC (4.70 - 6.10 /CUMM) 3.12 L Cancelled Hgb (14.0 - 18.0 G/DL) 8.4 L Cancelled Hct (42 - 52 %) 25.7 L Cancelled MCV (80.0 - 94.0 FL) 82.2 Cancelled MCH (27.0 - 31.0 PG) 27.0 Cancelled MCHC (33.0 - 37.0 G/DL) 32.9 L Cancelled RDW (11.5 - 14.5 %) 17.2 H Cancelled Plt Count (130 - 400 /CUMM) 326 Cancelled MPV (7.4 - 10.4 FL) 7.6 Cancelled Gran % (42.2 - 75.2 %) 73.9 Lymphocytes % (20.5 - 51.1 %) 12.2 L Monocytes % (1.7 - 9.3 %) 10.0 H Eosinophils % (0 - 5 %) 3.4 Basophils % (0.0 - 2.0 %) 0.5 Absolute Granulocytes (1.4 - 6.5 /CUMM) 4.2 Absolute Lymphocytes (1.2 - 3.4 /CUMM) 0.7 L Absolute Monocytes (0.10 - 0.60 /CUMM) 0.6 Absolute Eosinophils (0.0 - 0.7 /CUMM) 0.2 Absolute Basophils (0.0 - 0.2 /CUMM) 0 Last 24 Hours of Joel Results: Blood cultures 2 November 19 remain negative Assessment/Plan ID Impression: Stable, with temperatures and white blood cell count remaining normal, on Vancomycin, Day 6 of treatment for 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 He is scheduled for a right TMA in the a.m. but suspect he will ultimately require a right BKA, which has been recommended by Podiatry on several occasions. His echocardiogram did not reveal any vegetations but will discuss further with Cardiology given his recurrent bacteremia. Suggestion: 1. Await right transmetatarsal amputation in the a.m. 2. Will discuss Echocardiogram with Cardiology 3. Continue Vancomycin
--- NOTE | 2017-11-24 11:13 | PN- Nephrology ---
Assessment/Plan Nephrology Assessment: 1. CKD stage III status post DDKT 2014; renal function near baseline 2. Osteomyelitis right foot with MRSA bacteremia -on vancomycin; for surgery tomorrow 3. Anemia -now on an THEO (Procrit) 4. Tendency towards mild hyperkalemia 5. Diabetes mellitus 6. History of atrial fibrillation 7. Status post CVA in 2006 Suggestion: 1. Continue current immunosuppressive regimen; tacrolimus trough level pending 2. Limit dietary potassium to 2 g per day 3. For right TMA tomorrow; maintain hydration intra-and postoperative 4. Continue to monitor intake and output, chemistries, CBCs daily Subjective Subjective: Feeling reasonably good today with no specific complaints. He remains afebrile with normal WBC and stable renal function. Serum potassium slightly elevated. For TMA tomorrow Objective Vital Signs and I&Os Vital Signs Date Time Temp Pulse Resp B/P B/P Pulse O2 O2 Flow FiO2 Mean Ox Delivery Rate 11/24 1032 62 122/60 11/24 1029 62 122/60 11/24 0624 97.6 58 20 100/50 94 Room Air 11/23 2212 98.1 86 20 114/80 91 Room Air 11/23 1402 98.4 58 15 112/60 95 Room Air Intake & Output 11/24 1600 11/24 0400 11/23 1600 11/23 0400 11/22 1600 11/22 0400 Intake Total 751.2 1050 1083.20 943.2 1910.40 860 Output Total 7958 543 2373 1700 1125 Balance -723.8 130 -141.80 -756.8 785.40 860 Intake, IV 291.2 250 243.2 690.40 160 Intake, Oral 460 800 898 420 9551 700 Intake, 243.20 TPN/PPN Number 1 0 Bowel Movements Output, Urine 0888 909 9886 1700 1125 Patient 166 lb 194 lb 190 lb Weight Weight Bed scale Bed scale Measurement Method Physical Exam: General: Well-developed white male in NAD Skin: No rash or jaundice; multiple senile keratoses; no petechiae or splinter hemorrhages HEENT: Conjunctivae pale, sclerae anicteric, mucous membranes moist Neck: Without masses or thyromegaly, no supraclavicular or cervical adenopathy Chest: Clear to P&A Heart: Regular rate and rhythm without S3 or rub Abdomen: Soft and nontender without palpable masses or organomegaly Extremities: Without cyanosis or edema; right foot dressing intact Neuro: Awake, alert and oriented, no focal findings, no asterixis or myoclonus Results Pertinent Lab Results: Laboratory Tests 11/24 11/24 11/24 1000 0600 0430 Coagulation APTT (25 - 37 SEC) 75 H Toxicology Tacrolimus Pending Cancelled 11/24 11/23 0430 1800 Chemistry Sodium (137 - 145 mmol/L) 140 Potassium (3.5 - 5.1 mmol/L) 5.3 H Chloride (98 - 107 mmol/L) 104 Carbon Dioxide (22 - 30 mmol/L) 26 Anion Gap (5 - 16) 11 BUN (9 - 20 mg/dL) 32 H Creatinine (0.7 - 1.2 mg/dL) 1.4 H Estimated GFR (>60 ml/min) 50 L BUN/Creatinine Ratio (7 - 25 %) 22.9 Coagulation APTT (25 - 37 SEC) Cancelled 42 H Hematology CBC w Diff MAN DIFF ORDERED NO MAN DIFF REQ WBC (4.8 - 10.8 /CUMM) 4.7 L 5.7 RBC (4.70 - 6.10 /CUMM) 2.84 L 3.12 L Hgb (14.0 - 18.0 G/DL) 7.4 *L 8.4 L Hct (42 - 52 %) 23.2 L 25.7 L MCV (80.0 - 94.0 FL) 81.5 82.2 MCH (27.0 - 31.0 PG) 26.1 L 27.0 MCHC (33.0 - 37.0 G/DL) 32.0 L 32.9 L RDW (11.5 - 14.5 %) 17.6 H 17.2 H Plt Count (130 - 400 /CUMM) 306 326 MPV (7.4 - 10.4 FL) 7.2 L 7.6 Gran % (42.2 - 75.2 %) 68.9 73.9 Lymphocytes % (20.5 - 51.1 %) 14.3 L 12.2 L Monocytes % (1.7 - 9.3 %) 11.6 H 10.0 H Eosinophils % (0 - 5 %) 4.8 3.4 Basophils % (0.0 - 2.0 %) 0.4 0.5 Absolute Granulocytes (1.4 - 6.5 /CUMM) 3.2 4.2 Segmented Neutrophils (42.2 - 75.2 %) 73 Absolute Lymphocytes (1.2 - 3.4 /CUMM) 0.7 L 0.7 L Lymphocytes (20.5 - 51.1 %) 12 L Monocytes (1.7 - 9.3 %) 10 H Absolute Monocytes (0.10 - 0.60 /CUMM) 0.5 0.6 Eosinophils (0 - 5.0 %) 4 Absolute Eosinophils (0.0 - 0.7 /CUMM) 0.2 0.2 Basophils (0.0 - 2.0 %) 1 Absolute Basophils (0.0 - 0.2 /CUMM) 0 0 Platelet Estimate (ADEQUATE) ADEQUATE Polychromasia 1+ Hypochromic-Microcytic 1+ Poikilocytosis 1+ Ovalocytes 1+ Other Body Source Fld Total RBCs Counted (%) 100 11/23 11/23 11/23 1600 0606 0350 Chemistry Sodium (137 - 145 mmol/L) 139 Potassium (3.5 - 5.1 mmol/L) 4.6 Chloride (98 - 107 mmol/L) 104 Carbon Dioxide (22 - 30 mmol/L) 26 Anion Gap (5 - 16) 9 BUN (9 - 20 mg/dL) 35 H Creatinine (0.7 - 1.2 mg/dL) 1.3 H Estimated GFR (>60 ml/min) 55 L BUN/Creatinine Ratio (7 - 25 %) 26.9 H Iron (49 - 181 ug/dL) 31 L TIBC (261 - 462 ug/dL) 205 L % Saturation (16 - 45 %) 15 L Ferritin (17.9 - 464 ng/mL) 936.0 H Coagulation APTT (25 - 37 SEC) 70 H 66 H Hematology CBC w Diff Cancelled MAN DIFF ORDERED WBC (4.8 - 10.8 /CUMM) Cancelled 7.3 RBC (4.70 - 6.10 /CUMM) Cancelled 2.84 L Hgb (14.0 - 18.0 G/DL) Cancelled 7.5 L Hct (42 - 52 %) Cancelled 23.4 L MCV (80.0 - 94.0 FL) Cancelled 82.2 MCH (27.0 - 31.0 PG) Cancelled 26.2 L MCHC (33.0 - 37.0 G/DL) Cancelled 31.9 L RDW (11.5 - 14.5 %) Cancelled 17.4 H Plt Count (130 - 400 /CUMM) Cancelled 339 MPV (7.4 - 10.4 FL) Cancelled 7.9 Gran % (42.2 - 75.2 %) 74.9 Lymphocytes % (20.5 - 51.1 %) 10.1 L Monocytes % (1.7 - 9.3 %) 11.4 H Eosinophils % (0 - 5 %) 2.9 Basophils % (0.0 - 2.0 %) 0.7 Absolute Granulocytes (1.4 - 6.5 /CUMM) 5.4 Segmented Neutrophils (42.2 - 75.2 %) 67 Absolute Lymphocytes (1.2 - 3.4 /CUMM) 0.7 L Lymphocytes (20.5 - 51.1 %) 16 L Monocytes (1.7 - 9.3 %) 9 Absolute Monocytes (0.10 - 0.60 /CUMM) 0.8 H Eosinophils (0 - 5.0 %) 8 H Absolute Eosinophils (0.0 - 0.7 /CUMM) 0.2 Absolute Basophils (0.0 - 0.2 /CUMM) 0 Platelet Estimate (ADEQUATE) VERIFIED BY SMEAR Normocytic RBCs VERIFIED Normochromic RBCs VERIFIED 11/22 11/22 11/22 11/22 2207 2100 1610 0923 Coagulation APTT (25 - 37 SEC) 64 H 45 H Toxicology Vancomycin Trough (10.0 - 20.0 ug/mL) 12.0 Cancelled 11/22 11/22 11/21 0630 0130 1800 Chemistry Sodium (137 - 145 mmol/L) 139 Potassium (3.5 - 5.1 mmol/L) 5.1 Chloride (98 - 107 mmol/L) 102 Carbon Dioxide (22 - 30 mmol/L) 27 Anion Gap (5 - 16) 11 BUN (9 - 20 mg/dL) 38 H Creatinine (0.7 - 1.2 mg/dL) 1.5 H Estimated GFR (>60 ml/min) 46 L BUN/Creatinine Ratio (7 - 25 %) 25.3 H Coagulation APTT (25 - 37 SEC) 36 33 Hematology CBC w Diff MAN DIFF ORDERED WBC (4.8 - 10.8 /CUMM) 5.5 RBC (4.70 - 6.10 /CUMM) 3.24 L Hgb (14.0 - 18.0 G/DL) 8.6 L Hct (42 - 52 %) 26.5 L MCV (80.0 - 94.0 FL) 81.9 MCH (27.0 - 31.0 PG) 26.6 L MCHC (33.0 - 37.0 G/DL) 32.5 L RDW (11.5 - 14.5 %) 17.2 H Plt Count (130 - 400 /CUMM) 323 MPV (7.4 - 10.4 FL) 8.3 Gran % (42.2 - 75.2 %) 75.1 Lymphocytes % (20.5 - 51.1 %) 11.4 L Monocytes % (1.7 - 9.3 %) 7.8 Eosinophils % (0 - 5 %) 5.2 H Basophils % (0.0 - 2.0 %) 0.5 Absolute Granulocytes (1.4 - 6.5 /CUMM) 4.1 Segmented Neutrophils (42.2 - 75.2 %) 78 H Absolute Lymphocytes (1.2 - 3.4 /CUMM) 0.6 L Lymphocytes (20.5 - 51.1 %) 10 L Monocytes (1.7 - 9.3 %) 8 Absolute Monocytes (0.10 - 0.60 /CUMM) 0.4 Eosinophils (0 - 5.0 %) 4 Absolute Eosinophils (0.0 - 0.7 /CUMM) 0.3 Absolute Basophils (0.0 - 0.2 /CUMM) 0 Platelet Estimate (ADEQUATE) VERIFIED BY SMEAR Normocytic RBCs VERIFIED Normochromic RBCs VERIFIED
--- NOTE | 2017-11-24 13:25 | PN- Pulmonary ---
Subjective HPI/Critical Care Issues: Afebrile without complaints Objective Current Medications: Current Medications Sig/Ira Start time Last Medication Dose Route Stop Time Status Admin Acetaminophen 650 MG Q6P PRN 11/18 0245 AC 11/21 PO 1620 Alprazolam 0.5 MG DAILY NEEDED PRN 11/18 0300 AC 11/23 PO 11/25 0259 2037 Amiodarone HCl 100 MG DAILY 11/18 09 AC 11/24 PO 1029 Atorvastatin Calcium 10 MG DAILY 11/18 09 AC 11/24 PO 1028 Calcitriol 0.25 MCG DAILY 11/19 1159 AC 11/24 PO 1028 Calcium Carbonate 500 MG TID 11/19 1400 AC 11/24 PO 1035 Cholecalciferol 2,000 IU DAILY 11/19 1200 AC 11/24 PO 1027 Epoetin Onofre 20,000 U EVERY 2 WEEKS 11/23 1700 AC 11/23 SC 1720 Epoetin Onofre 20,000 UNITS EVERY 2 WEEKS 11/23 1615 DC IV Escitalopram Oxalate 20 MG DAILY 11/20 09 AC 11/24 PO 1028 Heparin Sodium 5,000 UNIT .STK-MED ONE 11/23 2206 DC (Porcine) IV 11/23 2207 Heparin Sodium 4,500 UNIT ONCE ONE 11/23 2200 DC 11/23 (Porcine) IV 11/23 2201 2211 Heparin Sodium 25,000 UNIT Q24H 11/21 1645 AC 11/24 (Porcine) IV 11/24 1900 0521 Sodium Chloride 500 ML Heparin Sodium/ 25,000 UNIT Q24H 11/24 1900 AC Dextrose IV Dextrose/Water 500 ML Insulin Aspart 0 AT BEDTIME 11/21 2100 AC SC Insulin Aspart 0 TIDAC 11/21 1700 AC 11/24 SC 0900 Insulin Detemir 12 UNITS BID 11/23 2100 AC 11/24 SC 1030 Melatonin 5 MG AT BEDTIME PRN 11/23 2215 AC 11/23 PO 2210 Metoprolol Succinate 12.5 MG DAILY 11/18 09 AC 11/24 PO 1032 Mycophenolate Mofetil 1,000 MG BID 11/18 0900 AC 11/24 PO 1026 Nystatin 1 REBECCA BID 11/20 1845 AC 11/24 TOP 1028 Omeprazole 20 MG DAILY AC 11/18 0700 AC 11/24 PO 0551 Ramelteon 8 MG AT BEDTIME 11/19 2100 AC 11/23 PO 203 Tacrolimus 5 MG 1000 11/23 1000 AC 11/24 PO 1030 Vancomycin HCl 1,000 MG 2300 11/18 230 AC 11/23 Sodium Chloride 250 ML IV 2211 Vital Signs & I&O Last 24 Hrs of Vitals and I&O: Vital Signs Date Time Temp Pulse Resp B/P B/P Pulse O2 O2 Flow FiO2 Mean Ox Delivery Rate 11/24 1032 62 122/60 11/24 1029 62 122/60 11/24 06 97.6 58 20 100/50 94 Room Air 11/23 2212 98.1 86 20 114/80 91 Room Air 11/23 1402 98.4 58 15 112/60 95 Room Air Intake & Output 11/24 1600 11/24 0800 11/24 0000 Intake Total 751.2 1050 Output Total 1475 920 Balance -723.8 130 Intake, IV 291.2 250 Intake, Oral 460 800 Output, Urine 1475 920 Laboratory Tests 11/24 11/24 11/24 1000 0600 0430 Coagulation APTT (25 - 37 SEC) 75 H Toxicology Tacrolimus Pending Cancelled 11/24 11/23 0430 1800 Chemistry Sodium (137 - 145 mmol/L) 140 Potassium (3.5 - 5.1 mmol/L) 5.3 H Chloride (98 - 107 mmol/L) 104 Carbon Dioxide (22 - 30 mmol/L) 26 Anion Gap (5 - 16) 11 BUN (9 - 20 mg/dL) 32 H Creatinine (0.7 - 1.2 mg/dL) 1.4 H Estimated GFR (>60 ml/min) 50 L BUN/Creatinine Ratio (7 - 25 %) 22.9 Coagulation APTT (25 - 37 SEC) Cancelled 42 H Hematology CBC w Diff MAN DIFF ORDERED NO MAN DIFF REQ WBC (4.8 - 10.8 /CUMM) 4.7 L 5.7 RBC (4.70 - 6.10 /CUMM) 2.84 L 3.12 L Hgb (14.0 - 18.0 G/DL) 7.4 *L 8.4 L Hct (42 - 52 %) 23.2 L 25.7 L MCV (80.0 - 94.0 FL) 81.5 82.2 MCH (27.0 - 31.0 PG) 26.1 L 27.0 MCHC (33.0 - 37.0 G/DL) 32.0 L 32.9 L RDW (11.5 - 14.5 %) 17.6 H 17.2 H Plt Count (130 - 400 /CUMM) 306 326 MPV (7.4 - 10.4 FL) 7.2 L 7.6 Gran % (42.2 - 75.2 %) 68.9 73.9 Lymphocytes % (20.5 - 51.1 %) 14.3 L 12.2 L Monocytes % (1.7 - 9.3 %) 11.6 H 10.0 H Eosinophils % (0 - 5 %) 4.8 3.4 Basophils % (0.0 - 2.0 %) 0.4 0.5 Absolute Granulocytes (1.4 - 6.5 /CUMM) 3.2 4.2 Segmented Neutrophils (42.2 - 75.2 %) 73 Absolute Lymphocytes (1.2 - 3.4 /CUMM) 0.7 L 0.7 L Lymphocytes (20.5 - 51.1 %) 12 L Monocytes (1.7 - 9.3 %) 10 H Absolute Monocytes (0.10 - 0.60 /CUMM) 0.5 0.6 Eosinophils (0 - 5.0 %) 4 Absolute Eosinophils (0.0 - 0.7 /CUMM) 0.2 0.2 Basophils (0.0 - 2.0 %) 1 Absolute Basophils (0.0 - 0.2 /CUMM) 0 0 Platelet Estimate (ADEQUATE) ADEQUATE Polychromasia 1+ Hypochromic-Microcytic 1+ Poikilocytosis 1+ Ovalocytes 1+ Other Body Source Fld Total RBCs Counted (%) 100 11/23 11/23 11/23 1600 0606 0350 Chemistry Sodium (137 - 145 mmol/L) 139 Potassium (3.5 - 5.1 mmol/L) 4.6 Chloride (98 - 107 mmol/L) 104 Carbon Dioxide (22 - 30 mmol/L) 26 Anion Gap (5 - 16) 9 BUN (9 - 20 mg/dL) 35 H Creatinine (0.7 - 1.2 mg/dL) 1.3 H Estimated GFR (>60 ml/min) 55 L BUN/Creatinine Ratio (7 - 25 %) 26.9 H Iron (49 - 181 ug/dL) 31 L TIBC (261 - 462 ug/dL) 205 L % Saturation (16 - 45 %) 15 L Ferritin (17.9 - 464 ng/mL) 936.0 H Coagulation APTT (25 - 37 SEC) 70 H 66 H Hematology CBC w Diff Cancelled MAN DIFF ORDERED WBC (4.8 - 10.8 /CUMM) Cancelled 7.3 RBC (4.70 - 6.10 /CUMM) Cancelled 2.84 L Hgb (14.0 - 18.0 G/DL) Cancelled 7.5 L Hct (42 - 52 %) Cancelled 23.4 L MCV (80.0 - 94.0 FL) Cancelled 82.2 MCH (27.0 - 31.0 PG) Cancelled 26.2 L MCHC (33.0 - 37.0 G/DL) Cancelled 31.9 L RDW (11.5 - 14.5 %) Cancelled 17.4 H Plt Count (130 - 400 /CUMM) Cancelled 339 MPV (7.4 - 10.4 FL) Cancelled 7.9 Gran % (42.2 - 75.2 %) 74.9 Lymphocytes % (20.5 - 51.1 %) 10.1 L Monocytes % (1.7 - 9.3 %) 11.4 H Eosinophils % (0 - 5 %) 2.9 Basophils % (0.0 - 2.0 %) 0.7 Absolute Granulocytes (1.4 - 6.5 /CUMM) 5.4 Segmented Neutrophils (42.2 - 75.2 %) 67 Absolute Lymphocytes (1.2 - 3.4 /CUMM) 0.7 L Lymphocytes (20.5 - 51.1 %) 16 L Monocytes (1.7 - 9.3 %) 9 Absolute Monocytes (0.10 - 0.60 /CUMM) 0.8 H Eosinophils (0 - 5.0 %) 8 H Absolute Eosinophils (0.0 - 0.7 /CUMM) 0.2 Absolute Basophils (0.0 - 0.2 /CUMM) 0 Platelet Estimate (ADEQUATE) VERIFIED BY SMEAR Normocytic RBCs VERIFIED Normochromic RBCs VERIFIED 11/22 11/22 11/22 2207 2100 1610 Coagulation APTT (25 - 37 SEC) 64 H Toxicology Vancomycin Trough (10.0 - 20.0 ug/mL) 12.0 Cancelled Impression/Plan Impression/Plan Impression/Plan: Head: atraumatic, normal appearance Eyes:Bilateral: normal appearance, PERRL, EOMI. Ears, Nose, Throat: normal pharynx, normal ENT inspection, hearing grossly normal Neck: normal inspection, supple, full range of motion, no midline tenderness Respiratory: normal breath sounds, chest non-tender, no respiratory distress, quiet respiration, lungs clear Cardiovascular: normal peripheral pulses, irregularly irregular, norml femoral pulses equa Peripheral Pulses: 4+ carotid (R), 4+ carotid (L) Gastrointestinal: normal bowel sounds, soft, non-tender, no organomegaly Back: normal inspection, normal range of motion, no vertebral tenderness Extremities: no edema, pelvis stable, dressing with with chronic nonhealing ulcer seen Neurologic/Psych: normal Reflexes:2+: bicep (R), bicep (L). Lymphatic: no anterior cervical adenavf intact IMPRESSION This is a gentleman with s/p renal transplant on immunosupp with initial infected toe with osteo s/p previous surg, previous mrsa bacteremia, DM with * Recurrent MRSA sepsis and Recurrent osteo and infected foot who was recently on prolonged abx and multiple surgeries now with ongoing osteo and cellulitis- now scheduled for tma amputation * Previous neutopenia and anemia - needs follow up * DM, autonomic neuropathy, gastropathy, pvd * Previous MRI showing very small punctate lesions prob ateromatous small emboli , on anticoag, and statin * PT with Pafib in Sinus and sig atheromatous aorta, small pfo, - on eloquis * H/o of Prolonged qtc, previous low mag need to continue to monitor * SHIRA with CKD s/p renal transplant, creat now up to 1.8 * DM insulin requiring * PVD, previous history of stoke, and previous toe amputation, now angioplasty of the lower limb with recent amputations * Previous secondary hyperparathyroid. Sig autonomic dysfunction was on fludocortisone * Pafib on eliquis (in sinus on amiodarone) (being dosed for renal function) * Depression and anxiety * Peripheral neuropathy REC * IV abx per ID, check and watch vanco levels * Watch hemoglobin and check stool for heme daily * Cont tacrolimus and mycophenolate * Await tac level today * Follow wbc and hgb daily * COnt abx / ID note appretiated * COnt all meds * Cont heparin * Keep sugars around 150 * Watch bp closely Follow hemoglobin this pm and if still low can transfuse one unit today prior to surg
[2017-11-24 14:41] VITALS: BP 110/73
[2017-11-24 19:14] LABS: PTT 69 SEC (25-37)
[2017-11-24 22:29] VITALS: BP 144/72
[2017-11-24 23:17] LABS: ABSOLUTE BASOPHIL COUNT 0 /CUMM (0.0-0.2); ABSOLUTE EOSINOPHIL COUNT 0.3 /CUMM (0.0-0.7); ABSOLUTE LYMPH COUNT 0.9 /CUMM (1.2-3.4); ABSOLUTE MONOCYTE COUNT 0.6 /CUMM (0.10-0.60); BASOPHIL % 0.3 % (0.0-2.0); EOSINOPHIL % 4.5 % (0-5); GRANULOCYTE % 69.7 % (42.2-75.2); HEMATOCRIT 25.4 % (42-52); MEAN CORPUSCULAR HGB 26.4 PG (27.0-31.0); MEAN CORPUSCULAR HGB CONC 32.6 G/DL (33.0-37.0); MEAN CORPUSCULAR VOLUME 81.1 FL (80.0-94.0); MEAN PLATELET VOLUME 7.3 FL (7.4-10.4); PLATELET COUNT 342 /CUMM (130-400); RBC DISTRIBUTION WIDTH 17.8 % (11.5-14.5); RED BLOOD CELL CT 3.13 /CUMM (4.70-6.10); WHITE BLOOD CELL COUNT 5.8 /CUMM (4.8-10.8)
[2017-11-25 06:31] VITALS: BP 122/70
--- NOTE | 2017-11-25 07:49 | PN- Housestaff ---
Subjective Follow-up For: Osteomyelitis of right second MTP status post debridement SHIRA and CKD Anemia Subjective: FSG [id number]. Patient denies palpitations, SOB, CP, nausea, vomiting, foot pain. Review of Systems Constitutional: Reports: see HPI. Objective Last 24 Hrs of Vital Signs/I&O Vital Signs Date Time Temp Pulse Resp B/P B/P Pulse O2 O2 Flow FiO2 Mean Ox Delivery Rate 11/25 0631 97.9 58 18 122/70 96 Room Air 11/24 2229 97.9 58 18 144/72 97 Room Air 11/24 1441 98.5 82 18 110/73 96 Room Air 11/24 1032 62 122/60 11/24 1029 62 122/60 Intake & Output 11/25 1600 11/25 0800 11/25 0000 Intake Total 590 229.2 Output Total 1250 1150 Balance -660 -920.8 Intake, IV 590 109.2 Intake, Oral 120 Number 0 Bowel Movements Output, Urine 1250 1150 Physical Exam General Appearance: Alert, Oriented X3, Cooperative Assessment/Plan Assessment: Mr. Edouard is a 71-year-old male presented to ED with fever, chills and nausea with past medical history of significant for ESRD status post renal transplant on tacrolimus and CellCept, paroxysmal atrial fibrillation on Eliquis, HTN, HLD, CVA, DM, osteomyelitis of the right distal phalanx of the right great toe status post partial amputation 09/09/17 with positive pathology for osteomyelitis, blood and OR culture growing Escherichia coli, Citrobacter and MRSA, wound had clean margins Problem list: #Osteomyelitis of right second MTP status post debridement #SHIRA and CKD #Anemia Plan: * Hemoglobing stable 7.4>>8.3 without requiring transfusion * Continue vancomycin * Tacrolimis trough level pending * Continue tacrolimus and CellCept * Nmzy-Sjrr-ilybjux scale, Levemir, NovoLog insulin as per Endo * Continue amiodarone, metoprolol for PAF * We will continue IV Heparin until postop Tuesday then resume Apixaban thereafter as per Podiatry * Echo showed Moderate concentric left ventricular hypertrophy with an EF of 55- 60 %. No obvious regional wall motion abnormalities. * Appreciate Endo, podiatry, ID, vascular surgery, nephrology, cardio recommendations * TKA scheduled for Today Code-full code Diet-diabetic diet, potassium restriction Problem List: 1. Osteomyelitis Pain Ratin Pain Location: NA Pain Goal: Remain pain free Pain Plan: NA Tomorrow's Labs & Rationales: IRAIDA SAMAYOA
--- NOTE | 2017-11-25 08:29 | PN- Diabetes ---
Assessment/Plan Diabetes Assessment: The patient feels okay. He was switched on n.p.o. regimen last night. Is on D5 half-normal saline and NovoLog coverage every 4 hours. His surgery is scheduled for 130 this afternoon. Fingerstick blood sugars yesterday were 124 before breakfast, 238 before lunch, 140 before dinner, and 178 at bedtime. This morning while n.p.o. his sugar is 196. Plan: Suggest continue the present regimen while n.p.o. When he returns from the OR and is eating again place him back on his usual mealtime insulin regimen. This includes his usual Levemir dose which was 12 units twice a day as well as his usual pre-meal NovoLog and NovoLog at bedtime NovoLog as previously written. Subjective Subjective: Feels okay Review of Systems Constitutional: Denies: chills, fever. Cardiovascular: Denies: chest pain. Gastrointestinal: Denies: nausea. Objective Last 24 Hrs of Vital Signs/I&O Vital Signs Date Time Temp Pulse Resp B/P B/P Pulse O2 O2 Flow FiO2 Mean Ox Delivery Rate 11/25 0631 97.9 58 18 122/70 96 Room Air 11/24 2229 97.9 58 18 144/72 97 Room Air 11/24 1441 98.5 82 18 110/73 96 Room Air 11/24 1032 62 122/60 11/24 1029 62 122/60 Intake & Output 11/25 1600 11/25 0800 05 0000 Intake Total 590 229.2 Output Total 1250 1150 Balance -660 -920.8 Intake, IV 590 109.2 Intake, Oral 120 Number 0 Bowel Movements Output, Urine 1250 1150 Vital Signs Date Time Temp Pulse Resp B/P B/P Pulse O2 O2 Flow FiO2 Mean Ox Delivery Rate 11/25 0631 97.9 58 18 122/70 96 Room Air 11/24 2229 97.9 58 18 144/72 97 Room Air 11/24 1441 98.5 82 18 110/73 96 Room Air 11/24 1032 62 122/60 11/24 1029 62 122/60 Intake & Output 11/25 1600 11/25 0800 05 0000 Intake Total 590 229.2 Output Total 1250 1150 Balance -660 -920.8 Intake, IV 590 109.2 Intake, Oral 120 Number 0 Bowel Movements Output, Urine 1250 1150 Physical Exam General Appearance: alert, awake, comfortable Cardiovascular: regular rate/rhythm Abdomen: normal bowel sounds Extremities: right foot bandaged Current Medications: Current Medications Sig/Ira Start time Last Medication Dose Route Stop Time Status Admin Acetaminophen 650 MG Q6P PRN 11/18 0245 AC 11/21 PO 1620 Alprazolam 0.5 MG DAILY NEEDED PRN 11/18 0300 DC 11/23 PO 11/25 0259 2037 Amiodarone HCl 100 MG DAILY 11/18 09 11/24 PO 1029 Atorvastatin Calcium 10 MG DAILY 11/18 09 AC 11/24 PO 1028 Calcitriol 0.25 MCG DAILY 11/19 1159 AC 11/24 PO 1028 Calcium Carbonate 500 MG TID 11/19 1400 AC 11/24 PO 2155 Cholecalciferol 2,000 IU DAILY 11/19 1200 AC 11/24 PO 1027 Dextrose/Sodium 1,000 ML Q20H 11/25 0000 AC 11/25 Chloride IV 0027 Docusate Sodium 100 MG DAILY 11/24 1323 PO Epoetin Onofre 20,000 U EVERY 2 WEEKS 11/23 1700 11/23 CO 1720 Escitalopram Oxalate 20 MG DAILY 11/20 0900 11/24 PO 1028 Heparin Sodium 25,000 UNIT Q24H 11/21 1645 OK 11/24 (Porcine) IV 11/24 1900 1722 Sodium Chloride 500 ML Heparin Sodium/ 25,000 UNIT Q24H 11/24 1900 11/24 Dextrose IV 1955 Dextrose/Water 500 ML Insulin Aspart 0 Q4 11/25 0200 11/25 CO 0621 Insulin Aspart 0 AT BEDTIME 11/21 2100 [facility] 11/24 2355 Insulin Aspart 0 TIDAC 11/21 1700 OK 11/24 CO 11/24 2355 1819 Insulin Detemir 6 UNITS BID 11/24 2200 11/24 SC 2156 Insulin Detemir 12 UNITS BID 11/23 2100 OK 11/24 SC 1030 Melatonin 5 MG AT BEDTIME PRN 11/23 2215 AC 11/23 PO 2210 Metoprolol Succinate 12.5 MG DAILY 11/18 09 11/24 PO 1032 Mycophenolate Mofetil 1,000 MG BID 11/18 09 11/24 PO 2155 Nystatin 1 REBECCA BID 11/20 1845 DC 11/24 TOP 1028 Omeprazole 20 MG DAILY AC 11/18 0700 AC 11/25 PO 0621 Polyethylene Glycol 17 GM DAILY 11/24 1323 AC PO Ramelteon 8 MG AT BEDTIME 11/19 2100 AC 11/24 PO 2155 Tacrolimus 5 MG 1000 11/23 1000 AC 11/24 PO 1030 Vancomycin HCl 1,000 MG 2300 11/18 2300 AC 11/24 Sodium Chloride 250 ML IV 2242 Findings Pertinent Lab/Joel Results: Laboratory Tests 11/25 11/24 11/24 06 2235 1800 Coagulation APTT (25 - 37 SEC) Pending 69 H Hematology CBC w Diff Pending MAN DIFF ORDERED WBC (4.8 - 10.8 /CUMM) Pending 5.8 RBC (4.70 - 6.10 /CUMM) Pending 3.13 L Hgb (14.0 - 18.0 G/DL) Pending 8.3 L Hct (42 - 52 %) Pending 25.4 L MCV (80.0 - 94.0 FL) Pending 81.1 MCH (27.0 - 31.0 PG) Pending 26.4 L MCHC (33.0 - 37.0 G/DL) Pending 32.6 L RDW (11.5 - 14.5 %) Pending 17.8 H Plt Count (130 - 400 /CUMM) Pending 342 MPV (7.4 - 10.4 FL) Pending 7.3 L Gran % (42.2 - 75.2 %) 69.7 Lymphocytes % (20.5 - 51.1 %) 15.1 L Monocytes % (1.7 - 9.3 %) 10.4 H Eosinophils % (0 - 5 %) 4.5 Basophils % (0.0 - 2.0 %) 0.3 Absolute Granulocytes (1.4 - 6.5 /CUMM) 4.0 Segmented Neutrophils (42.2 - 75.2 %) 72 Band Neutrophils (0.0 - 5.0 %) 1 Absolute Lymphocytes (1.2 - 3.4 /CUMM) 0.9 L Lymphocytes (20.5 - 51.1 %) 18 L Monocytes (1.7 - 9.3 %) 7 Absolute Monocytes (0.10 - 0.60 /CUMM) 0.6 Eosinophils (0 - 5.0 %) 1 Absolute Eosinophils (0.0 - 0.7 /CUMM) 0.3 Absolute Basophils (0.0 - 0.2 /CUMM) 0 Metamyelocytes (0.0 - 1.0 %) 1 Platelet Estimate (ADEQUATE) ADEQUATE Hypochromic-Microcytic 1+ Anisocytosis 1+ Microcytic Cells 1+ 11/24 11/24 11/24 1000 0600 0430 Coagulation APTT (25 - 37 SEC) 75 H Toxicology Tacrolimus Pending Cancelled 11/24 11/23 0430 1800 Chemistry Sodium (137 - 145 mmol/L) 140 Potassium (3.5 - 5.1 mmol/L) 5.3 H Chloride (98 - 107 mmol/L) 104 Carbon Dioxide (22 - 30 mmol/L) 26 Anion Gap (5 - 16) 11 BUN (9 - 20 mg/dL) 32 H Creatinine (0.7 - 1.2 mg/dL) 1.4 H Estimated GFR (>60 ml/min) 50 L BUN/Creatinine Ratio (7 - 25 %) 22.9 Coagulation APTT (25 - 37 SEC) Cancelled 42 H Hematology CBC w Diff MAN DIFF ORDERED NO MAN DIFF REQ WBC (4.8 - 10.8 /CUMM) 4.7 L 5.7 RBC (4.70 - 6.10 /CUMM) 2.84 L 3.12 L Hgb (14.0 - 18.0 G/DL) 7.4 *L 8.4 L Hct (42 - 52 %) 23.2 L 25.7 L MCV (80.0 - 94.0 FL) 81.5 82.2 MCH (27.0 - 31.0 PG) 26.1 L 27.0 MCHC (33.0 - 37.0 G/DL) 32.0 L 32.9 L RDW (11.5 - 14.5 %) 17.6 H 17.2 H Plt Count (130 - 400 /CUMM) 306 326 MPV (7.4 - 10.4 FL) 7.2 L 7.6 Gran % (42.2 - 75.2 %) 68.9 73.9 Lymphocytes % (20.5 - 51.1 %) 14.3 L 12.2 L Monocytes % (1.7 - 9.3 %) 11.6 H 10.0 H Eosinophils % (0 - 5 %) 4.8 3.4 Basophils % (0.0 - 2.0 %) 0.4 0.5 Absolute Granulocytes (1.4 - 6.5 /CUMM) 3.2 4.2 Segmented Neutrophils (42.2 - 75.2 %) 73 Absolute Lymphocytes (1.2 - 3.4 /CUMM) 0.7 L 0.7 L Lymphocytes (20.5 - 51.1 %) 12 L Monocytes (1.7 - 9.3 %) 10 H Absolute Monocytes (0.10 - 0.60 /CUMM) 0.5 0.6 Eosinophils (0 - 5.0 %) 4 Absolute Eosinophils (0.0 - 0.7 /CUMM) 0.2 0.2 Basophils (0.0 - 2.0 %) 1 Absolute Basophils (0.0 - 0.2 /CUMM) 0 0 Platelet Estimate (ADEQUATE) ADEQUATE Polychromasia 1+ Hypochromic-Microcytic 1+ Poikilocytosis 1+ Ovalocytes 1+ Other Body Source Fld Total RBCs Counted (%) 100 11/23 1600 Hematology CBC w Diff Cancelled WBC Cancelled RBC Cancelled Hgb Cancelled Hct Cancelled MCV Cancelled MCH Cancelled MCHC Cancelled RDW Cancelled Plt Count Cancelled MPV Cancelled
[2017-11-25 08:53] LABS: PTT 89 SEC (25-37)
[2017-11-25 08:56] LABS: ABSOLUTE BASOPHIL COUNT 0 /CUMM (0.0-0.2); ABSOLUTE EOSINOPHIL COUNT 0.3 /CUMM (0.0-0.7); ABSOLUTE GRANULOCYTE CT 4.3 /CUMM (1.4-6.5); ABSOLUTE LYMPH COUNT 0.8 /CUMM (1.2-3.4); ABSOLUTE MONOCYTE COUNT 0.5 /CUMM (0.10-0.60); BASOPHIL % 0.4 % (0.0-2.0); EOSINOPHIL % 4.4 % (0-5); GRANULOCYTE % 72.7 % (42.2-75.2); HEMATOCRIT 25.8 % (42-52); MEAN CORPUSCULAR VOLUME 81.7 FL (80.0-94.0); MEAN PLATELET VOLUME 7.9 FL (7.4-10.4); PLATELET COUNT 326 /CUMM (130-400); RBC DISTRIBUTION WIDTH 17.8 % (11.5-14.5); RED BLOOD CELL CT 3.16 /CUMM (4.70-6.10); WHITE BLOOD CELL COUNT 5.9 /CUMM (4.8-10.8)
--- NOTE | 2017-11-25 10:34 | PN- Nephrology ---
Assessment/Plan Nephrology Assessment: 1. CKD stage III status post DDKT 2014; renal function near baseline 2. Osteomyelitis right foot with MRSA bacteremia -on vancomycin; for surgery this afternoon 3. Anemia - on an THEO (Procrit) 4. Tendency towards mild hyperkalemia 5. Diabetes mellitus 6. History of atrial fibrillation 7. Status post CVA in 2006 Suggestion: 1. Continue current immunosuppressive therapy 2. Please monitor chemistries daily 3. Suggest IV of half-normal saline at 75 cc/h starting now and continuing through tomorrow morning; can then discontinue 4. Antibiotic therapy per ID Subjective Subjective: No complaints. He feels ready for his surgery which is scheduled for this afternoon. He remains afebrile with normal WBC and stable hemoglobin. No chemistries today. Tacrolimus trough level was 7.0 yesterday. Objective Vital Signs and I&Os Vital Signs Date Time Temp Pulse Resp B/P B/P Pulse O2 O2 Flow FiO2 Mean Ox Delivery Rate 11/25 1021 64 122/70 11/25 1019 64 122/70 11/25 0631 97.9 58 18 122/70 96 Room Air 11/24 2229 97.9 58 18 144/72 97 Room Air 11/24 1441 98.5 82 18 110/73 96 Room Air Intake & Output 11/25 1600 11/25 0400 11/24 1600 11/24 0400 11/23 1600 11/23 0400 Intake Total 590 229.2 1878.8 1050 1083.20 943.2 Output Total 1450 1150 7694 818 2326 1700 Balance -860 -920.8 403.8 130 -141.80 -756.8 Intake, IV 590 109.2 618.8 250 243.2 Intake, Oral 120 1260 800 840 700 Intake, 243.20 TPN/PPN Number 0 1 1 Bowel Movements Output, Urine 1450 1150 6364 774 7316 1700 Patient 166 lb Weight Weight Bed scale Measurement Method Physical Exam: General: Well-developed white male in NAD Skin: No rash or jaundice; multiple senile keratoses; no petechiae or splinter hemorrhages HEENT: Conjunctivae pale, sclerae anicteric, mucous membranes moist Neck: Without masses or thyromegaly, no supraclavicular or cervical adenopathy Chest: Clear to P&A Heart: Regular rate and rhythm without S3 or rub Abdomen: Soft and nontender without palpable masses or organomegaly Extremities: Without cyanosis or edema; right foot dressing intact Neuro: Awake, alert and oriented, no focal findings, no asterixis or myoclonus Results Pertinent Lab Results: Laboratory Tests 11/25 11/24 0629 2235 Coagulation APTT (25 - 37 SEC) 89 H Hematology CBC w Diff MAN DIFF ORDERED MAN DIFF ORDERED WBC (4.8 - 10.8 /CUMM) 5.9 5.8 RBC (4.70 - 6.10 /CUMM) 3.16 L 3.13 L Hgb (14.0 - 18.0 G/DL) 8.5 L 8.3 L Hct (42 - 52 %) 25.8 L 25.4 L MCV (80.0 - 94.0 FL) 81.7 81.1 MCH (27.0 - 31.0 PG) 27.0 26.4 L MCHC (33.0 - 37.0 G/DL) 33.0 32.6 L RDW (11.5 - 14.5 %) 17.8 H 17.8 H Plt Count (130 - 400 /CUMM) 326 342 MPV (7.4 - 10.4 FL) 7.9 7.3 L Gran % (42.2 - 75.2 %) 72.7 69.7 Lymphocytes % (20.5 - 51.1 %) 13.9 L 15.1 L Monocytes % (1.7 - 9.3 %) 8.6 10.4 H Eosinophils % (0 - 5 %) 4.4 4.5 Basophils % (0.0 - 2.0 %) 0.4 0.3 Absolute Granulocytes (1.4 - 6.5 /CUMM) 4.3 4.0 Segmented Neutrophils (42.2 - 75.2 %) 76 H 72 Band Neutrophils (0.0 - 5.0 %) 1 Absolute Lymphocytes (1.2 - 3.4 /CUMM) 0.8 L 0.9 L Lymphocytes (20.5 - 51.1 %) 15 L 18 L Monocytes (1.7 - 9.3 %) 5 7 Absolute Monocytes (0.10 - 0.60 /CUMM) 0.5 0.6 Eosinophils (0 - 5.0 %) 4 1 Absolute Eosinophils (0.0 - 0.7 /CUMM) 0.3 0.3 Absolute Basophils (0.0 - 0.2 /CUMM) 0 0 Metamyelocytes (0.0 - 1.0 %) 1 Platelet Estimate (ADEQUATE) VERIFIED BY SMEAR ADEQUATE Normocytic RBCs VERIFIED Normochromic RBCs VERIFIED Hypochromic-Microcytic 1+ Anisocytosis 1+ Microcytic Cells 1+ 11/24 11/24 11/24 11/24 1800 1000 0600 0430 Coagulation APTT (25 - 37 SEC) 69 H 75 H Toxicology Tacrolimus (() mcg/L) 7.0 Cancelled 11/24 11/23 0430 1800 Chemistry Sodium (137 - 145 mmol/L) 140 Potassium (3.5 - 5.1 mmol/L) 5.3 H Chloride (98 - 107 mmol/L) 104 Carbon Dioxide (22 - 30 mmol/L) 26 Anion Gap (5 - 16) 11 BUN (9 - 20 mg/dL) 32 H Creatinine (0.7 - 1.2 mg/dL) 1.4 H Estimated GFR (>60 ml/min) 50 L BUN/Creatinine Ratio (7 - 25 %) 22.9 Coagulation APTT (25 - 37 SEC) Cancelled 42 H Hematology CBC w Diff MAN DIFF ORDERED NO MAN DIFF REQ WBC (4.8 - 10.8 /CUMM) 4.7 L 5.7 RBC (4.70 - 6.10 /CUMM) 2.84 L 3.12 L Hgb (14.0 - 18.0 G/DL) 7.4 *L 8.4 L Hct (42 - 52 %) 23.2 L 25.7 L MCV (80.0 - 94.0 FL) 81.5 82.2 MCH (27.0 - 31.0 PG) 26.1 L 27.0 MCHC (33.0 - 37.0 G/DL) 32.0 L 32.9 L RDW (11.5 - 14.5 %) 17.6 H 17.2 H Plt Count (130 - 400 /CUMM) 306 326 MPV (7.4 - 10.4 FL) 7.2 L 7.6 Gran % (42.2 - 75.2 %) 68.9 73.9 Lymphocytes % (20.5 - 51.1 %) 14.3 L 12.2 L Monocytes % (1.7 - 9.3 %) 11.6 H 10.0 H Eosinophils % (0 - 5 %) 4.8 3.4 Basophils % (0.0 - 2.0 %) 0.4 0.5 Absolute Granulocytes (1.4 - 6.5 /CUMM) 3.2 4.2 Segmented Neutrophils (42.2 - 75.2 %) 73 Absolute Lymphocytes (1.2 - 3.4 /CUMM) 0.7 L 0.7 L Lymphocytes (20.5 - 51.1 %) 12 L Monocytes (1.7 - 9.3 %) 10 H Absolute Monocytes (0.10 - 0.60 /CUMM) 0.5 0.6 Eosinophils (0 - 5.0 %) 4 Absolute Eosinophils (0.0 - 0.7 /CUMM) 0.2 0.2 Basophils (0.0 - 2.0 %) 1 Absolute Basophils (0.0 - 0.2 /CUMM) 0 0 Platelet Estimate (ADEQUATE) ADEQUATE Polychromasia 1+ Hypochromic-Microcytic 1+ Poikilocytosis 1+ Ovalocytes 1+ Other Body Source Fld Total RBCs Counted (%) 100 11/23 11/23 11/23 1600 0606 0350 Chemistry Sodium (137 - 145 mmol/L) 139 Potassium (3.5 - 5.1 mmol/L) 4.6 Chloride (98 - 107 mmol/L) 104 Carbon Dioxide (22 - 30 mmol/L) 26 Anion Gap (5 - 16) 9 BUN (9 - 20 mg/dL) 35 H Creatinine (0.7 - 1.2 mg/dL) 1.3 H Estimated GFR (>60 ml/min) 55 L BUN/Creatinine Ratio (7 - 25 %) 26.9 H Iron (49 - 181 ug/dL) 31 L TIBC (261 - 462 ug/dL) 205 L % Saturation (16 - 45 %) 15 L Ferritin (17.9 - 464 ng/mL) 936.0 H Coagulation APTT (25 - 37 SEC) 70 H 66 H Hematology CBC w Diff Cancelled MAN DIFF ORDERED WBC (4.8 - 10.8 /CUMM) Cancelled 7.3 RBC (4.70 - 6.10 /CUMM) Cancelled 2.84 L Hgb (14.0 - 18.0 G/DL) Cancelled 7.5 L Hct (42 - 52 %) Cancelled 23.4 L MCV (80.0 - 94.0 FL) Cancelled 82.2 MCH (27.0 - 31.0 PG) Cancelled 26.2 L MCHC (33.0 - 37.0 G/DL) Cancelled 31.9 L RDW (11.5 - 14.5 %) Cancelled 17.4 H Plt Count (130 - 400 /CUMM) Cancelled 339 MPV (7.4 - 10.4 FL) Cancelled 7.9 Gran % (42.2 - 75.2 %) 74.9 Lymphocytes % (20.5 - 51.1 %) 10.1 L Monocytes % (1.7 - 9.3 %) 11.4 H Eosinophils % (0 - 5 %) 2.9 Basophils % (0.0 - 2.0 %) 0.7 Absolute Granulocytes (1.4 - 6.5 /CUMM) 5.4 Segmented Neutrophils (42.2 - 75.2 %) 67 Absolute Lymphocytes (1.2 - 3.4 /CUMM) 0.7 L Lymphocytes (20.5 - 51.1 %) 16 L Monocytes (1.7 - 9.3 %) 9 Absolute Monocytes (0.10 - 0.60 /CUMM) 0.8 H Eosinophils (0 - 5.0 %) 8 H Absolute Eosinophils (0.0 - 0.7 /CUMM) 0.2 Absolute Basophils (0.0 - 0.2 /CUMM) 0 Platelet Estimate (ADEQUATE) VERIFIED BY SMEAR Normocytic RBCs VERIFIED Normochromic RBCs VERIFIED 11/22 11/22 11/22 2207 2100 1610 Coagulation APTT (25 - 37 SEC) 64 H Toxicology Vancomycin Trough (10.0 - 20.0 ug/mL) 12.0 Cancelled
--- NOTE | 2017-11-25 12:09 | PN- Infect Dx ---
Subjective Subjective: Afebrile without complaints Objective Last 24 Hrs of Vital Signs/I&O Vital Signs Date Time Temp Pulse Resp B/P B/P Pulse O2 O2 Flow FiO2 Mean Ox Delivery Rate 11/25 1021 64 122/70 11/25 1019 64 122/70 11/25 0631 97.9 58 18 122/70 96 Room Air 11/24 2229 97.9 58 18 144/72 97 Room Air 11/24 1441 98.5 82 18 110/73 96 Room Air Intake & Output 11/25 1600 11/25 0800 11/25 0000 Intake Total 590 229.2 Output Total 800 1250 1150 Balance -800 -660 -920.8 Intake, IV 590 109.2 Intake, Oral 120 Number 1 0 Bowel Movements Output, Urine 800 1250 1150 Physical Exam Other Physical Findings: He appears comfortable in no acute distress Chest Pro-Line in the right upper chest with no inflammation at the site Extremities right foot dressing intact Results Last 24 Hours of Lab Results: Laboratory Tests 11/25 11/24 0629 2235 Coagulation APTT (25 - 37 SEC) 89 H Hematology CBC w Diff MAN DIFF ORDERED MAN DIFF ORDERED WBC (4.8 - 10.8 /CUMM) 5.9 5.8 RBC (4.70 - 6.10 /CUMM) 3.16 L 3.13 L Hgb (14.0 - 18.0 G/DL) 8.5 L 8.3 L Hct (42 - 52 %) 25.8 L 25.4 L MCV (80.0 - 94.0 FL) 81.7 81.1 MCH (27.0 - 31.0 PG) 27.0 26.4 L MCHC (33.0 - 37.0 G/DL) 33.0 32.6 L RDW (11.5 - 14.5 %) 17.8 H 17.8 H Plt Count (130 - 400 /CUMM) 326 342 MPV (7.4 - 10.4 FL) 7.9 7.3 L Gran % (42.2 - 75.2 %) 72.7 69.7 Lymphocytes % (20.5 - 51.1 %) 13.9 L 15.1 L Monocytes % (1.7 - 9.3 %) 8.6 10.4 H Eosinophils % (0 - 5 %) 4.4 4.5 Basophils % (0.0 - 2.0 %) 0.4 0.3 Absolute Granulocytes (1.4 - 6.5 /CUMM) 4.3 4.0 Segmented Neutrophils (42.2 - 75.2 %) 76 H 72 Band Neutrophils (0.0 - 5.0 %) 1 Absolute Lymphocytes (1.2 - 3.4 /CUMM) 0.8 L 0.9 L Lymphocytes (20.5 - 51.1 %) 15 L 18 L Monocytes (1.7 - 9.3 %) 5 7 Absolute Monocytes (0.10 - 0.60 /CUMM) 0.5 0.6 Eosinophils (0 - 5.0 %) 4 1 Absolute Eosinophils (0.0 - 0.7 /CUMM) 0.3 0.3 Absolute Basophils (0.0 - 0.2 /CUMM) 0 0 Metamyelocytes (0.0 - 1.0 %) 1 Platelet Estimate (ADEQUATE) VERIFIED BY SMEAR ADEQUATE Normocytic RBCs VERIFIED Normochromic RBCs VERIFIED Hypochromic-Microcytic 1+ Anisocytosis 1+ Microcytic Cells 1+ 05/24 1800 Coagulation APTT (25 - 37 SEC) 69 H Last 24 Hours of Joel Results: No recent cultures Assessment/Plan ID Impression: Stable, with temperatures and white blood cell count remaining normal, on Vancomycin, Day 7 of treatment for 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 He is scheduled for a right TMA later today but suspect he will ultimately require a right BKA, which has been recommended by Podiatry on several occasions, and he should be followed closely as an outpatient to reevaluate the need for this based on his wound healing. In the interim he will require a 4-6 week course of IV antibiotics for residual osteomyelitis. Suggestion: 1. Await right transmetatarsal amputation later today 2. Would obtain a postop baseline ESR and x-ray of the right foot 3. Repeat Vancomycin level in the next 1-2 days 4. Will need close follow-up as an outpatient with evaluation for possible BKA if his wound does not heal 5. Will need weekly CBC, ESR, BUN/creatinine and Vancomycin trough level 6. Continue Vancomycin to plan on a 6 week course from his negative blood cultures (until December 31) Coco Lanza MD will be covering over the weekend
--- NOTE | 2017-11-25 14:20 | PN- Pulmonary ---
Subjective HPI/Critical Care Issues: doing well stable For surg Objective Current Medications: Current Medications Sig/Ira Start time Last Medication Dose Route Stop Time Status Admin Acetaminophen 650 MG Q6P PRN 11/18 0245 AC 11/21 PO 1620 Alprazolam 0.5 MG DAILY NEEDED PRN 11/18 0300 DC 11/23 PO 11/25 0259 2037 Amiodarone HCl 100 MG DAILY 11/18 09 AC 11/25 PO 1019 Atorvastatin Calcium 10 MG DAILY 11/18 09 AC 11/25 PO 1020 Calcitriol 0.25 MCG DAILY 11/19 1159 AC 11/25 PO 1018 Calcium Carbonate 500 MG TID 11/19 1400 AC 11/25 PO 1022 Cholecalciferol 2,000 IU DAILY 11/19 1200 AC 11/25 PO 1020 Dextrose/Sodium 1,000 ML Q20H 11/25 0000 AC 11/25 Chloride IV 0027 Docusate Sodium 100 MG DAILY 11/24 1323 AC 11/25 PO 1023 Epoetin Onofre 20,000 U EVERY 2 WEEKS 11/23 1700 11/23 SC 1720 Escitalopram Oxalate 20 MG DAILY 11/20 0900 AC 11/25 PO 1018 Heparin Sodium 25,000 UNIT Q24H 11/21 1645 DC 11/24 (Porcine) IV 11/24 1900 1722 Sodium Chloride 500 ML Heparin Sodium/ 25,000 UNIT Q24H 11/24 1900 DC 11/24 Dextrose IV 1955 Dextrose/Water 500 ML Insulin Aspart 0 Q4 11/25 0200 11/25 SC 1029 Insulin Aspart 0 AT BEDTIME 11/21 2100 DC CO 11/24 2355 Insulin Aspart 0 TIDAC 11/21 1700 DC 11/24 CO 11/24 2355 1819 Insulin Detemir 6 UNITS BID 11/24 2200 11/25 SC 1028 Insulin Detemir 12 UNITS BID 11/23 2100 DC 11/24 SC 1030 Melatonin 5 MG AT BEDTIME PRN 11/23 2215 AC 11/23 PO 2210 Metoprolol Succinate 12.5 MG DAILY 11/18 09 AC 11/25 PO 1021 Mycophenolate Mofetil 1,000 MG BID 11/18 09 AC 11/25 PO 1021 Nystatin 1 REBECCA BID 11/20 1845 DC 11/24 TOP 1028 Omeprazole 20 MG DAILY AC 05/18 0700 AC 11/25 PO 0621 Polyethylene Glycol 17 GM DAILY 11/24 1323 AC PO Ramelteon 8 MG AT BEDTIME 11/19 2100 AC 11/24 PO 2155 Tacrolimus 5 MG 1000 11/23 1000 AC 11/25 PO 1016 Vancomycin HCl 1,000 MG 2300 11/18 2300 AC 11/24 Sodium Chloride 250 ML IV 2242 Vital Signs & I&O Last 24 Hrs of Vitals and I&O: Vital Signs Date Time Temp Pulse Resp B/P B/P Pulse O2 O2 Flow FiO2 Mean Ox Delivery Rate 11/25 1253 Room Air Room Air 11/25 1021 64 122/70 11/25 1019 64 122/70 11/25 0631 97.9 58 18 122/70 96 Room Air 11/24 2229 97.9 58 18 144/72 97 Room Air 11/24 1441 98.5 82 18 110/73 96 Room Air Intake & Output 11/25 1600 11/25 0800 11/25 0000 Intake Total 590 229.2 Output Total 800 1250 1150 Balance -800 -660 -920.8 Intake, IV 590 109.2 Intake, Oral 120 Number 1 0 Bowel Movements Output, Urine 800 1250 1150 Impression/Plan Impression/Plan Impression/Plan: Head: atraumatic, normal appearance Eyes:Bilateral: normal appearance, PERRL, EOMI. Ears, Nose, Throat: normal pharynx, normal ENT inspection, hearing grossly normal Neck: normal inspection, supple, full range of motion, no midline tenderness Respiratory: normal breath sounds, chest non-tender, no respiratory distress, quiet respiration, lungs clear Cardiovascular: normal peripheral pulses, irregularly irregular, norml femoral pulses equa Peripheral Pulses: 4+ carotid (R), 4+ carotid (L) Gastrointestinal: normal bowel sounds, soft, non-tender, no organomegaly Back: normal inspection, normal range of motion, no vertebral tenderness Extremities: no edema, pelvis stable, dressing with with chronic nonhealing ulcer seen Neurologic/Psych: normal Reflexes:2+: bicep (R), bicep (L). Lymphatic: no anterior cervical adenavf intact IMPRESSION This is a gentleman with s/p renal transplant on immunosupp with initial infected toe with osteo s/p previous surg, previous mrsa bacteremia, DM with * Recurrent MRSA sepsis and Recurrent osteo and infected foot who was recently on prolonged abx and multiple surgeries now with ongoing osteo and cellulitis- now scheduled for tma amputation * Previous neutopenia and anemia - needs follow up * DM, autonomic neuropathy, gastropathy, pvd * Previous MRI showing very small punctate lesions prob ateromatous small emboli , on anticoag, and statin * PT with Pafib in Sinus and sig atheromatous aorta, small pfo, - on eloquis * H/o of Prolonged qtc, previous low mag need to continue to monitor * SHIRA with CKD s/p renal transplant, creat now up to 1.8 * DM insulin requiring * PVD, previous history of stoke, and previous toe amputation, now angioplasty of the lower limb with recent amputations * Previous secondary hyperparathyroid. Sig autonomic dysfunction was on fludocortisone * Pafib on eliquis (in sinus on amiodarone) (being dosed for renal function) * Depression and anxiety * Peripheral neuropathy REC * IV abx per ID * For surg today * Watch hemoglobin and check stool for heme daily * Cont tacrolimus and mycophenolate * Follow wbc and hgb daily * COnt abx / ID note appretiated * COnt all meds * Cont heparin hold for surg and start back once the pt is stable per surg to start heparin * Keep sugars around 150 * Watch bp closely
--- NOTE | 2017-11-25 15:00 | Operative Report ---
Operative/Inv Procedure Report Surgery Date: 11/25/17 Name of Procedure: 1 transmetatarsal amputation right foot 2 intraoperative administration of ankle block anesthesia 3 excisional debridement Pre-Operative Diagnosis: 1 osteomyelitis right fourth Post-Operative Diagnosis: The same Estimated Blood Loss: less than 50ml Surgeon/Roll Or Tape Edge Machine Operator: PRASHANT MORGAN DPM Anesthesia: moderate sedation, block Operative/Procedure Note Note: After obtaining informed consent the patient was brought to the operating room and placed on the operating table in the supine position. The patient isn't securely fastened to the operating table utilizing safety belt. After administration of IV sedation, 10 mL of 0.5% Marcaine plain was infiltrated about the patient's right ankle. Right foot and ankle within scrubbed, prepped and draped in usual aseptic manner. Attention was then directed to the right foot, where a necrotic was identified medially with infection involving the lesser rays laterally. A fishmouth-type incision was made encompassing the distal metatarsals from medial to lateral. A full-thickness flap was then developed with Bovie dissection and distal metatarsal shafts of the second, third, fourth and fifth rays were exposed. Sagittal bone saw was utilized performed through and through osteotomies. The distal osseous segments were freed and passed from the operative field. The plantar flap was then revised. Specimen was sent for pathologic inspection. The open wound was then irrigated with 3 L of normal sterile saline infusion 50,000 units of bacitracin. Following this, the foot was redraped and surgeon's top was changed clean gloves. Any bleeding vessels identified were cauterized or ligated as encountered. The plantar flap was then rotated superiorly and held centrally with 2-0 Vicryl. Subtenons tissues reapproximated 3-0 Vicryl. Skin is reapproximated with 2-[address] Incision was dressed with Xeroform, 4 x 4's, Kerlix and Qasim wrap. The patient was noted tolerable to procedure and anesthesia well and the patient was transported from the operating room to recovery with vital signs stable.
[2017-11-25 16:17] VITALS: BP 110/62
[2017-11-25 22:15] VITALS: BP 120/62
[2017-11-26 05:31] LABS: ABSOLUTE BASOPHIL COUNT 0 /CUMM (0.0-0.2); ABSOLUTE EOSINOPHIL COUNT 0.2 /CUMM (0.0-0.7); ABSOLUTE GRANULOCYTE CT 5.1 /CUMM (1.4-6.5); ABSOLUTE LYMPH COUNT 0.7 /CUMM (1.2-3.4); ABSOLUTE MONOCYTE COUNT 0.6 /CUMM (0.10-0.60); BASOPHIL % 0 % (0.0-2.0); EOSINOPHIL % 2.6 % (0-5); GRANULOCYTE % 77.8 % (42.2-75.2); HEMATOCRIT 25.5 % (42-52); MEAN CORPUSCULAR HGB 26.5 PG (27.0-31.0); MEAN CORPUSCULAR HGB CONC 32.4 G/DL (33.0-37.0); MEAN CORPUSCULAR VOLUME 81.7 FL (80.0-94.0); MEAN PLATELET VOLUME 7.5 FL (7.4-10.4); PLATELET COUNT 322 /CUMM (130-400); RBC DISTRIBUTION WIDTH 17.6 % (11.5-14.5); RED BLOOD CELL CT 3.12 /CUMM (4.70-6.10); WHITE BLOOD CELL COUNT 6.5 /CUMM (4.8-10.8)
[2017-11-26 05:57] VITALS: BP 118/60
[2017-11-26 06:43] LABS: PTT 38 SEC (25-37)
--- NOTE | 2017-11-26 08:18 | PN- Housestaff ---
Subjective Follow-up For: Osteomyelitis of right second MTP status post metatarsal amputation Subjective: Patient seen and examined at bedside. No overnight events. Complaints of pain in his right foot. Denies shortness of breath, chest pain. Review of Systems Constitutional: Reports: no symptoms, see HPI. Objective Last 24 Hrs of Vital Signs/I&O Vital Signs Date Time Temp Pulse Resp B/P B/P Pulse O2 O2 Flow FiO2 Mean Ox Delivery Rate 11/26 856 98.5 60 20 118/60 11/26 0857 98.5 60 20 118/60 11/26 0557 98.5 60 20 118/60 95 Room Air 11/25 2215 97.7 59 19 120/62 94 Room Air 11/25 1617 97.5 54 18 110/62 97 Room Air 11/25 1253 Room Air Room Air Intake & Output 11/26 1600 11/26 0800 11/26 0000 Intake Total 880 680 Output Total 525 600 Balance 355 80 Intake, IV 400 200 Intake, Oral 480 480 Output, Urine 525 600 Patient 185 lb Weight Weight Bed scale Measurement Method Physical Exam General Appearance: Alert, Oriented X3, Cooperative, No Acute Distress Cardiovascular: Normal S1, Normal S2 Lungs: Clear to Auscultation Abdomen: Soft, No Tenderness, No Hepatospenomegaly Neurological: Normal Speech Extremities: right foot dressing intact Current Medications: Current Medications Sig/Ira Start time Last Medication Dose Route Stop Time Status Admin Acetaminophen 650 MG Q6P PRN 11/18 0245 DC 11/21 PO 1620 Alprazolam 0.5 MG DAILY NEEDED PRN 11/25 2145 AC 11/25 PO 12/03 2143 214 Amiodarone HCl 100 MG DAILY 11/18 09 AC 11/26 PO 0857 Atorvastatin Calcium 10 MG DAILY 11/18 09 AC 11/26 PO 0827 Calcitriol 0.25 MCG DAILY 11/19 1159 AC 11/26 PO 0826 Calcium Carbonate 500 MG TID 11/19 1400 AC 11/26 PO 0848 Cholecalciferol 2,000 IU DAILY 11/19 1200 AC 11/26 PO 0827 Dextrose/Sodium 1,000 ML Q20H 11/25 0000 DC 11/25 Chloride IV 1938 Docusate Sodium 100 MG DAILY 11/24 1323 AC 11/26 PO 0827 Epoetin Onofre 20,000 U EVERY 2 WEEKS 11/23 1700 AC 11/23 SC 1720 Escitalopram Oxalate 20 MG DAILY 11/20 0900 AC 11/26 PO 0827 Fentanyl Citrate 100 MCG .STK-MED ONE 11/25 1349 DC IM 11/25 1350 Heparin Sodium 5,040 UNIT BOLUS ONE 11/26 0650 DC 11/26 (Porcine) IV 11/26 0651 0746 Heparin Sodium/ 25,000 UNIT Q24H 11/25 2100 AC 11/25 Dextrose IV 2222 Dextrose/Water 500 ML Heparin Sodium/ 25,000 UNIT Q24H 11/24 1900 DC 11/24 Dextrose IV 1955 Dextrose/Water 500 ML Insulin Aspart 0 AT BEDTIME 11/25 2100 11/25 SC 2041 Insulin Aspart 0 TIDAC 11/25 1700 AC 11/26 SC 0848 Insulin Aspart 0 Q4 11/25 0200 MT 11/25 SC 1029 Insulin Detemir 12 UNITS BID 11/25 2100 11/26 SC 0848 Insulin Detemir 6 UNITS BID 11/24 2200 MT 11/25 SC 1028 Melatonin 5 MG AT BEDTIME PRN 11/23 2215 11/23 PO 2210 Metoprolol Succinate 12.5 MG DAILY 11/18 0900 11/26 PO 0857 Midazolam HCl 2 MG .STK-MED ONE 11/25 1349 DC IM 11/25 1350 Mycophenolate Mofetil 1,000 MG BID 11/18 09 11/26 PO 0828 Omeprazole 20 MG DAILY AC 11/18 0700 11/26 PO 0459 Oxycodone HCl 5 MG Q6-PRN PRN 11/26 0915 11/26 PO 0919 Polyethylene Glycol 17 GM DAILY 11/24 1323 PO Ramelteon 8 MG AT BEDTIME 11/19 2100 11/25 PO 2041 Tacrolimus 5 MG 1000 11/23 1000 AC 11/26 PO 0919 Vancomycin HCl 1,000 MG 2300 11/18 2300 AC 11/25 Sodium Chloride 250 ML IV 2240 Last 24 Hrs of Lab/Joel Results Last 24 Hrs of Labs/Mics: Laboratory Tests 11/26/17 0455: Anion Gap 10, Estimated GFR 54 L, BUN/Creatinine Ratio 28.5 H, APTT 38 H, CBC w Diff MAN DIFF ORDERED, RBC 3.12 L, MCV 81.7, MCH 26.5 L, MCHC 32.4 L, RDW 17.6 H, MPV 7.5, Gran % 77.8 H, Lymphocytes % 10.8 L, Monocytes % 8.8, Eosinophils % 2.6, Basophils % 0, Absolute Granulocytes 5.1, Absolute Lymphocytes 0.7 L, Absolute Monocytes 0.6, Absolute Eosinophils 0.2, Absolute Basophils 0, Platelet Estimate ADEQUATE, Polychromasia 1+, Poikilocytosis 1+, Ovalocytes 1+, ESR Westergren 60 H Assessment/Plan Assessment: Mr. Edouard is a 71-year-old male presented to ED with fever, chills and nausea with past medical history of significant for ESRD status post renal transplant on tacrolimus and CellCept, paroxysmal atrial fibrillation on Eliquis, HTN, HLD, CVA, DM, osteomyelitis of the right distal phalanx of the right great toe status post partial amputation 09/09/17 with positive pathology for osteomyelitis, blood and OR culture growing Escherichia coli, Citrobacter and MRSA, wound had clean margins Problem list: #Osteomyelitis of right second MTP status post debridement #SHIRA and CKD #Anemia Plan: * Hemoglobing stable 7.4>>8.3 without requiring transfusion * Continue vancomycin. Vancomycin trough level pending * Continue tacrolimus and CellCept * [id number] scale, Levemir, NovoLog insulin as per Endo * Continue amiodarone, metoprolol for PAF * Patient is on IV heparin need to change to by mouth anticoagulant. * Echo showed Moderate concentric left ventricular hypertrophy with an EF of 55- 60 %. No obvious regional wall motion abnormalities. * Appreciate Endo, podiatry, ID, vascular surgery, nephrology, cardio recommendations * Today potassium 5.3. Code-full code Diet-diabetic diet, potassium restriction Problem List: 1. Osteomyelitis of foot, right, acute Pain Ratin Pain Location: rt foot Pain Goal: Remain pain free Pain Plan: tylenol Tomorrow's Labs & Rationales: cbc,bep
--- NOTE | 2017-11-26 11:46 | PN- Diabetes ---
Assessment/Plan Diabetes Assessment: This patient has diabetes mellitus with severe complications. He was on Lantus 28 units at home as well as sliding scale Humalog. He came into the hospital with evidence of infection in his foot. Currently he is on levemir 12 units twice a day, Novolog coverage before meals and Novolog coverage at bedtime. His FSGs were 196, 184, 313 and 272. Plan: 1. increase Levemir to 15 units twice a day; 2. adjust Novolog coverage before meals; detail see the inpatient DM order; 3. continue the current Novolog coverage at bedtime; 4. monitor FSGs. 5. monitor K level will follow. Inpatient Diabetes Orders Before Each Meal: Bolus Insulin: Novolog < 80 mg/dl: no coverage 80-100 mg/dl: 5 units 101-120 mg/dl: 5 units 121-150 mg/dl: 5 units 151-200 mg/dl: 6 units 201-250 mg/dl: 7 units 251-300 mg/dl: 8 units 301-350 mg/dl: 9 units 351-400 mg/dl: 10 units > 400 mg/dl: 11 units Subjective Subjective: He feels okay. Objective Last 24 Hrs of Vital Signs/I&O Vital Signs Date Time Temp Pulse Resp B/P B/P Pulse O2 O2 Flow FiO2 Mean Ox Delivery Rate 11/26 0857 98.5 60 20 118/60 11/26 0857 98.5 60 20 118/60 11/26 0557 98.5 60 20 118/60 95 Room Air 11/25 2215 97.7 59 19 120/62 94 Room Air 11/25 1617 97.5 54 18 110/62 97 Room Air 11/25 1253 Room Air Room Air Intake & Output 11/26 1600 11/26 0800 11/26 0000 Intake Total 880 680 Output Total 250 525 600 Balance -250 355 80 Intake, IV 400 200 Intake, Oral 480 480 Output, Urine 250 525 600 Patient 185 lb Weight Weight Bed scale Measurement Method Findings Pertinent Lab/Joel Results: Laboratory Tests 11/26 0455 Chemistry Sodium (137 - 145 mmol/L) 137 Potassium (3.5 - 5.1 mmol/L) 5.5 H Chloride (98 - 107 mmol/L) 101 Carbon Dioxide (22 - 30 mmol/L) 27 Anion Gap (5 - 16) 10 BUN (9 - 20 mg/dL) 37 H Creatinine (0.7 - 1.2 mg/dL) 1.3 H Estimated GFR (>60 ml/min) 54 L BUN/Creatinine Ratio (7 - 25 %) 28.5 H Coagulation APTT (25 - 37 SEC) 38 H Hematology CBC w Diff MAN DIFF ORDERED WBC (4.8 - 10.8 /CUMM) 6.5 RBC (4.70 - 6.10 /CUMM) 3.12 L Hgb (14.0 - 18.0 G/DL) 8.3 L Hct (42 - 52 %) 25.5 L MCV (80.0 - 94.0 FL) 81.7 MCH (27.0 - 31.0 PG) 26.5 L MCHC (33.0 - 37.0 G/DL) 32.4 L RDW (11.5 - 14.5 %) 17.6 H Plt Count (130 - 400 /CUMM) 322 MPV (7.4 - 10.4 FL) 7.5 Gran % (42.2 - 75.2 %) 77.8 H Lymphocytes % (20.5 - 51.1 %) 10.8 L Monocytes % (1.7 - 9.3 %) 8.8 Eosinophils % (0 - 5 %) 2.6 Basophils % (0.0 - 2.0 %) 0 Absolute Granulocytes (1.4 - 6.5 /CUMM) 5.1 Absolute Lymphocytes (1.2 - 3.4 /CUMM) 0.7 L Absolute Monocytes (0.10 - 0.60 /CUMM) 0.6 Absolute Eosinophils (0.0 - 0.7 /CUMM) 0.2 Absolute Basophils (0.0 - 0.2 /CUMM) 0 Platelet Estimate (ADEQUATE) ADEQUATE Polychromasia 1+ Poikilocytosis 1+ Ovalocytes 1+ ESR Westergren (0 - 10 MM) 60 H
[2017-11-26 13:28] LABS: PTT 63 SEC (25-37)
[2017-11-26 14:14] VITALS: BP 110/60
--- NOTE | 2017-11-26 14:17 | PN- Pulmonary ---
Subjective HPI/Critical Care Issues: HAPPY BIRTHDAY Doing well Status post surgery Mild pain Objective Current Medications: Current Medications Sig/Ira Start time Last Medication Dose Route Stop Time Status Admin Acetaminophen 650 MG Q6P PRN 11/18 0245 DC 11/21 PO 1620 Alprazolam 0.5 MG DAILY NEEDED PRN 11/25 2145 AC 11/25 PO 12/02 214 2144 Amiodarone HCl 100 MG DAILY 11/18 899 AC 11/26 PO 0857 Atorvastatin Calcium 10 MG DAILY 11/18 09 AC 11/26 PO 0827 Calcitriol 0.25 MCG DAILY 11/19 1159 AC 11/26 PO 0826 Calcium Carbonate 500 MG TID 11/19 1400 AC 11/26 PO 0848 Cholecalciferol 2,000 IU DAILY 11/19 1200 AC 11/26 PO 0827 Dextrose/Sodium 1,000 ML Q20H 11/25 0000 DC 11/25 Chloride IV 1938 Docusate Sodium 100 MG DAILY 11/24 1323 AC 11/26 PO 0827 Epoetin Onofre 20,000 U EVERY 2 WEEKS 11/23 1700 11/23 ID 1720 Escitalopram Oxalate 20 MG DAILY 11/20 09 AC 11/26 PO 0827 Heparin Sodium 5,040 UNIT BOLUS ONE 11/26 0650 DC 11/26 (Porcine) IV 11/26 0651 0746 Heparin Sodium/ 25,000 UNIT Q24H 11/25 2100 AC 11/25 Dextrose IV 2222 Dextrose/Water 500 ML Insulin Aspart 0 AT BEDTIME 11/25 2100 AC 11/25 ID 2041 Insulin Aspart 0 TIDAC 11/25 1700 11/26 ID 1215 Insulin Aspart 0 Q4 11/25 0200 DC 11/25 ID 1029 Insulin Detemir 15 UNITS BID 11/26 2100 AC SC Insulin Detemir 12 UNITS BID 11/25 2100 DC 11/26 SC 0848 Insulin Detemir 6 UNITS BID 11/24 2200 DC 11/25 SC 1028 Melatonin 5 MG AT BEDTIME PRN 11/23 2215 11/23 PO 2210 Metoprolol Succinate 12.5 MG DAILY 11/18 09 AC 11/26 PO 0857 Mycophenolate Mofetil 1,000 MG BID 11/18 09 AC 11/26 PO 0828 Omeprazole 20 MG DAILY AC 11/18 07 AC 11/26 PO 0459 Oxycodone HCl 5 MG Q6-PRN PRN 11/26 0915 AC 11/26 PO 0919 Polyethylene Glycol 17 GM DAILY 11/24 1323 AC PO Ramelteon 8 MG AT BEDTIME 11/19 2100 AC 11/25 PO 204 Tacrolimus 5 MG 1000 11/23 1000 AC 11/26 PO 0919 Vancomycin HCl 1,000 MG 2300 11/18 2300 AC 11/25 Sodium Chloride 250 ML IV 2240 Vital Signs & I&O Last 24 Hrs of Vitals and I&O: Vital Signs Date Time Temp Pulse Resp B/P B/P Pulse O2 O2 Flow FiO2 Mean Ox Delivery Rate 11/26 0857 98.5 60 20 118/60 11/26 0857 98.5 60 20 118/60 11/26 0557 98.5 60 20 118/60 95 Room Air 11/25 2215 97.7 59 19 120/62 94 Room Air 11/25 1617 97.5 54 18 110/62 97 Room Air Intake & Output 11/26 1600 11/26 0800 11/26 0000 Intake Total 880 680 Output Total 1200 525 600 Balance -1200 355 80 Intake, IV 400 200 Intake, Oral 480 480 Output, Urine 1200 525 600 Patient 185 lb Weight Weight Bed scale Measurement Method Impression/Plan Impression/Plan Impression/Plan: Head: atraumatic, normal appearance Eyes:Bilateral: normal appearance, PERRL, EOMI. Ears, Nose, Throat: normal pharynx, normal ENT inspection, hearing grossly normal Neck: normal inspection, supple, full range of motion, no midline tenderness Respiratory: normal breath sounds, chest non-tender, no respiratory distress, quiet respiration, lungs clear Cardiovascular: normal peripheral pulses, irregularly irregular, norml femoral pulses equa Peripheral Pulses: 4+ carotid (R), 4+ carotid (L) Gastrointestinal: normal bowel sounds, soft, non-tender, no organomegaly Back: normal inspection, normal range of motion, no vertebral tenderness Extremities: no edema, pelvis stable, dressing with with chronic nonhealing ulcer seen Neurologic/Psych: normal Reflexes:2+: bicep (R), bicep (L). Lymphatic: no anterior cervical adenavf intact IMPRESSION This is a gentleman with s/p renal transplant on immunosupp with initial infected toe with osteo s/p previous surg, previous mrsa bacteremia, DM with * Recurrent MRSA sepsis and Recurrent osteo and infected foot who was recently on prolonged abx and multiple surgeries now with ongoing osteo and cellulitis- now s/p TMA * Previous neutopenia and anemia - needs follow up * DM, autonomic neuropathy, gastropathy, pvd * Previous MRI showing very small punctate lesions prob ateromatous small emboli , on anticoag, and statin * PT with Pafib in Sinus and sig atheromatous aorta, small pfo, - on eloquis * H/o of Prolonged qtc, previous low mag need to continue to monitor * SHIRA with CKD s/p renal transplant, creat now up to 1.8 * DM insulin requiring * PVD, previous history of stoke, and previous toe amputation, now angioplasty of the lower limb with recent amputations * Previous secondary hyperparathyroid. Sig autonomic dysfunction was on fludocortisone * Pafib on eliquis (in sinus on amiodarone) (being dosed for renal function) * Depression and anxiety * Peripheral neuropathy REC * IV abx per ID * Watch hemoglobin and check stool for heme daily * Cont tacrolimus and mycophenolate * Follow wbc and hgb daily * COnt all meds * If ok with podiatry start eloquis and dc heparin today or tommoros * Keep sugars around 150 * Watch bp closely
--- NOTE | 2017-11-26 15:26 | PN- Infect Dx ---
Subjective Subjective: No fever; comfortable. Proline dressing being changed. Review of Systems Comments: 12 points reviewed as noted, otherwise negative Objective Last 24 Hrs of Vital Signs/I&O Vital Signs Date Time Temp Pulse Resp B/P B/P Pulse O2 O2 Flow FiO2 Mean Ox Delivery Rate 11/26 1414 98.6 63 20 110/60 96 Room Air 11/26 0857 98.5 60 20 118/60 11/26 0857 98.5 60 20 118/60 11/26 0557 98.5 60 20 118/60 95 Room Air 11/25 2215 97.7 59 19 120/62 94 Room Air 11/25 1617 97.5 54 18 110/62 97 Room Air Intake & Output 11/26 1600 11/26 0800 11/26 0000 Intake Total 880 680 Output Total 1200 525 600 Balance -1200 355 80 Intake, IV 400 200 Intake, Oral 480 480 Output, Urine 1200 525 600 Patient 185 lb Weight Weight Bed scale Measurement Method Physical Exam Other Physical Findings: He appears comfortable in no acute distress Head: atraumatic, normal appearance Eyes:Bilateral: normal appearance, PERRL, EOMI. Ears, Nose, Throat: normal pharynx, normal ENT inspection, hearing grossly normal Neck: normal inspection, supple, full range of motion, no midline tenderness Respiratory: normal breath sounds, chest non-tender, no respiratory distress, quiet respiration, lungs clear; Chest Pro-Line in the right upper chest with no inflammation at the site Cardiovascular: normal peripheral pulses, irregularly irregular, norml femoral pulses equa Gastrointestinal: normal bowel sounds, soft, non-tender, no organomegaly Back: normal inspection, normal range of motion, no vertebral tenderness Extremities: no edema, pelvis stable, dressing with with chronic nonhealing ulcer seen Right foot dressing intact Neurologic/Psych: normal Lymphatic: no anterior cervical YADIRA Results Last 24 Hours of Lab Results: Laboratory Tests 11/26 11/26 1300 0455 Chemistry Sodium (137 - 145 mmol/L) 137 Potassium (3.5 - 5.1 mmol/L) 5.5 H Chloride (98 - 107 mmol/L) 101 Carbon Dioxide (22 - 30 mmol/L) 27 Anion Gap (5 - 16) 10 BUN (9 - 20 mg/dL) 37 H Creatinine (0.7 - 1.2 mg/dL) 1.3 H Estimated GFR (>60 ml/min) 54 L BUN/Creatinine Ratio (7 - 25 %) 28.5 H Coagulation APTT (25 - 37 SEC) 63 H 38 H Hematology CBC w Diff MAN DIFF ORDERED WBC (4.8 - 10.8 /CUMM) 6.5 RBC (4.70 - 6.10 /CUMM) 3.12 L Hgb (14.0 - 18.0 G/DL) 8.3 L Hct (42 - 52 %) 25.5 L MCV (80.0 - 94.0 FL) 81.7 MCH (27.0 - 31.0 PG) 26.5 L MCHC (33.0 - 37.0 G/DL) 32.4 L RDW (11.5 - 14.5 %) 17.6 H Plt Count (130 - 400 /CUMM) 322 MPV (7.4 - 10.4 FL) 7.5 Gran % (42.2 - 75.2 %) 77.8 H Lymphocytes % (20.5 - 51.1 %) 10.8 L Monocytes % (1.7 - 9.3 %) 8.8 Eosinophils % (0 - 5 %) 2.6 Basophils % (0.0 - 2.0 %) 0 Absolute Granulocytes (1.4 - 6.5 /CUMM) 5.1 Absolute Lymphocytes (1.2 - 3.4 /CUMM) 0.7 L Absolute Monocytes (0.10 - 0.60 /CUMM) 0.6 Absolute Eosinophils (0.0 - 0.7 /CUMM) 0.2 Absolute Basophils (0.0 - 0.2 /CUMM) 0 Platelet Estimate (ADEQUATE) ADEQUATE Polychromasia 1+ Poikilocytosis 1+ Ovalocytes 1+ ESR Westergren (0 - 10 MM) 60 H Last 24 Hours of Joel Results: SPEC #: [id number] ADELAIDA: 11/17/17 STATUS: COMP RECD: 11/17/[address]: Abel Perry MD SOURCE: BLOOD ENTR: 11/17/17 [facility] DR: Lakeisha RANKIN,Gilbert Mark SPDESC: 2ND/VENOUS ORDERED: BLOOD CULTURE Procedure Result > BLOOD CULTURE REPORT Final 11/22/17-1701 GRAM STAIN SUGGESTIVE OF: GRAM POSITIVE COCCI IN PAIRS Called to/Readback by ANGELICA AND DR BEEBE by LAB.SVCY 11/18/17 1542/ 1545 CULTURE: METH RESIST STAPH AUREUS ISOLATED Called to/Readback by WINDY by LAB.JOSE 11/20/17 0908 METH RESIST STAPH AUREUS: MICROSCAN GRAM POSITIVE PANEL ATTENTIONATTENTIONPLACE PATIENT ON CONTACT PRECAUTIONS 1. METH RESIST STAPH AUREUS RX ABN ------ --- 1. METH RESIST STAPH AUREUS RX AB ------ -- DAPTOMYCIN JOEL S 1. METH RESIST STAPH AUREUS RX AB ------ -- CEFAZOLIN R AMOXICILLIN/CLAVULINIC ACID R AMPICILLIN/SULBACTAM R TETRACYCLINE S TRIMETHOPRIM/SULFAMETHOXAZOLE S AZITHROMYCIN R CLINDAMYCIN R ERYTHROMYCIN R OXACILLIN R VANCOMYCIN S VA JOEL=1.5 Vancomycin JOEL of > 1 ug/ml has been associated with treatment failures. Alternative therapy should be considered. Consult with Infectious Disease physician recommended. ATTENTIONATTENTIONPLACE PATIENT ON CONTACT PRECAUTIONS Recent Imaging Studies: 2D Echo: FINDINGS Left Ventricle Normal size left ventricle. Moderate concentric left ventricular hypertrophy. Normal left ventricular ejection fraction visually estimated at 55-60 %. No obvious regional wall motion abnormalities. Right Ventricle Normal right ventricular size and function. Right Atrium Right atrial dilatation. Left Atrium Mild left atrial dilatation. Mitral Valve Moderate mitral annular calcification. Mitral valve thickened. Mild mitral regurgitation. Aortic Valve Diffuse thickening (sclerosis) of the aortic valve cusps without reduced excursion. Diffuse thickening (sclerosis) of the aortic valve cusps without reduced excursion. No aortic stenosis. No aortic regurgitation. Tricuspid Valve Tricuspid valve not well visualized, grossly normal. Mild tricuspid regurgitation. Right ventricular systolic pressure estimated to be elevated at 45 mmHg. Pulmonic Valve Pulmonic valve not well visualized, grossly normal. Trace pulmonic regurgitation. Pericardium Small pericardial effusion. No evidence of tamponade. Great Vessels Normal size aortic root. CONCLUSIONS Normal size left ventricle. Moderate concentric left ventricular hypertrophy. Normal left ventricular ejection fraction visually estimated at 55- 60 %. Mild left atrial dilatation. Mild mitral regurgitation. Mild tricuspid regurgitation. Right ventricular systolic pressure estimated to be elevated at 45 mmHg. Trace pulmonic regurgitation. Leonardo R. Dwain M.D. 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 to admission with no residual deficits, peripheral vascular disease, status post amputations of the left third, right third, partial right fourth and, most recently, the right great toe 4 weeks prior to admission when he was hospitalized for MRSA bacteremia and osteomyelitis, treated initially with Vancomycin, which was changed to Daptomycin because of leukopenia and renal insufficiency felt possibly to be secondary to the Vancomycin, with a right peroneal artery angioplasty performed on that hospitalization, discharged to a rehab facility with a wound VAC and a Pro-Line to complete a 4 week course of antibiotics from his most recent debridement, was admitted on November 17 after presenting to the emergency room with 2 days of nausea, retching, abdominal discomfort and low-grade fevers. MRSA sepsis secondary to gas gangrene/osteomyelitis of the right foot, status post open partial second ray resection over a week agoa and s/p R TMA 11/25.. Suggestion: 1. Repeat Vancomycin level 30 min before tyhe due dose on 11/27; goal trough 15- 20. 2. Will need close follow-up as an outpatient with evaluation for possible BKA if his wound does not heal 3. Weekly CBC, ESR, BUN/creatinine and Vancomycin trough level after discharge. Monitor K+ level closely 4. Continue Vancomycin D #8/42 course from his negative blood cultures on November 19 (until December 31)
[2017-11-26 21:40] VITALS: BP 110/66
[2017-11-27 02:45] LABS: PTT 41 SEC (25-37)
[2017-11-27 06:59] VITALS: BP 110/70
--- NOTE | 2017-11-27 08:20 | PN- Housestaff ---
See Addendum Subjective Follow-up For: Osteomyelitis of right second MTP status post metatarsal amputation Subjective: Patient reports mild pain that resolved with Percocet. Denies nausea, vomiting, diarrhea, fever, chills Review of Systems Constitutional: Reports: see HPI. Objective Last 24 Hrs of Vital Signs/I&O Vital Signs Date Time Temp Pulse Resp B/P B/P Pulse O2 O2 Flow FiO2 Mean Ox Delivery Rate 11/27 0840 97.2 56 20 110/70 11/27 0832 97.2 56 20 110/70 11/27 0659 97.2 56 20 110/70 96 Room Air 11/27 0000 Room Air 11/26 2140 97.9 62 20 110/66 95 11/26 1414 98.6 63 20 110/60 96 Room Air Intake & Output 11/27 1600 11/27 0800 11/27 0000 Intake Total 240 Output Total 1125 800 Balance -1125 -560 Intake, Oral 240 Number 0 0 Bowel Movements Output, Urine 1125 800 Patient 187 lb Weight Weight Bed scale Measurement Method Physical Exam General Appearance: Alert, Oriented X3, Cooperative, No Acute Distress Cardiovascular: Regular Rate, Normal S1, Normal S2 Lungs: Clear to Auscultation, Normal Air Movement Abdomen: Normal Bowel Sounds, Soft, No Tenderness Extremities: R foot dressing intact Current Medications: Current Medications Sig/Ira Start time Last Medication Dose Route Stop Time Status Admin Alprazolam 0.5 MG .STK-MED ONE 11/26 2232 DC PO 11/26 2233 Alprazolam 0.5 MG DAILY NEEDED PRN 11/25 214 AC 11/26 PO 12/02 214 223 Amiodarone HCl 100 MG DAILY 11/18 09 AC 11/27 PO 0832 Apixaban 5 MG BID 11/27 09 AC 11/27 PO 1026 Atorvastatin Calcium 10 MG DAILY 11/18 09 AC 11/27 PO 0831 Calcitriol 0.25 MCG DAILY 11/19 1159 AC 11/27 PO 0831 Calcium Carbonate 500 MG TID 11/19 1400 AC 11/27 PO 0832 Cholecalciferol 2,000 IU DAILY 11/19 1200 AC 11/27 PO 0831 Docusate Sodium 100 MG DAILY 11/24 1323 AC 11/27 PO 0832 Epoetin Onofre 20,000 U EVERY 2 WEEKS 11/23 1700 AC 11/23 SC 1720 Escitalopram Oxalate 20 MG DAILY 11/20 0900 AC 11/27 PO 0831 Heparin Sodium 5,000 UNIT BOLUS ONE 11/27 0330 DC 11/27 (Porcine) IV 11/27 033 0358 Heparin Sodium/ 25,000 UNIT Q24H 11/25 2099 DC 11/26 Dextrose IV 2042 Dextrose/Water 500 ML Insulin Aspart 0 AT BEDTIME 11/25 2100 AC 11/26 SC 2036 Insulin Aspart 0 TIDAC 11/25 1700 AC 11/27 SC 0831 Insulin Detemir 15 UNITS BID 11/26 2100 AC 11/27 SC 0830 Insulin Detemir 12 UNITS BID 11/25 2100 DC 11/26 SC 0848 Melatonin 5 MG AT BEDTIME PRN 11/23 2215 AC 11/23 PO 2210 Metoprolol Succinate 12.5 MG DAILY 11/18 0900 AC 11/27 PO 0840 Mycophenolate Mofetil 1,000 MG BID 11/18 0900 AC 11/27 PO 0829 Omeprazole 20 MG DAILY AC 11/18 0700 AC 11/27 PO 0740 Oxycodone HCl 5 MG Q6-PRN PRN 11/26 0915 AC 11/26 PO 2237 Polyethylene Glycol 17 GM DAILY 11/24 1323 AC 11/27 PO 0829 Ramelteon 8 MG AT BEDTIME 11/19 2100 AC 11/26 PO 2038 Tacrolimus 5 MG 1000 11/23 1000 AC 11/27 PO 1026 Vancomycin HCl 1,000 MG 2300 11/18 2300 AC 11/26 Sodium Chloride 250 ML IV 2238 Last 24 Hrs of Lab/Joel Results Last 24 Hrs of Labs/Mics: Laboratory Tests 11/27/17 0625: CBC w Diff Pending, WBC Pending, RBC Pending, Hgb Pending, Hct Pending, MCV Pending, MCH Pending, MCHC Pending, RDW Pending, Plt Count Pending, MPV Pending 11/27/17 0130: APTT 41 H 11/26/17 2230: Vancomycin Trough Cancelled 11/26/17 1300: APTT 63 H Assessment/Plan Assessment: Mr. Edouard is a 71-year-old male presented to ED with fever, chills and nausea with past medical history of significant for ESRD status post renal transplant on tacrolimus and CellCept, paroxysmal atrial fibrillation on Eliquis, HTN, HLD, CVA, DM, osteomyelitis of the right distal phalanx of the right great toe status post partial amputation 09/09/17 with positive pathology for osteomyelitis, blood and OR culture growing Escherichia coli, Citrobacter and MRSA, wound had clean margins Problem list: #Osteomyelitis of right second MTP status post debridement #SHIRA and CKD #Anemia #Mild hyperkalemia Plan: * We will continue to monitor potassium * Hemoglobing stable 7.4>>8.3 without requiring transfusion * Continue vancomycin. Vancomycin trough level pending * Continue tacrolimus and CellCept * Iyez-Gmda-hcvotmz scale, Levemir, NovoLog insulin as per Endo * Continue amiodarone, metoprolol for PAF * We discontinue IV Heparin and resumed Apixaban * Echo showed Moderate concentric left ventricular hypertrophy with an EF of 55- 60 %. No obvious regional wall motion abnormalities. * Appreciate Endo, podiatry, ID, vascular surgery, nephrology, cardio recommendations Code-full code Diet-diabetic diet, potassium and sodium restriction Problem List: 1. Osteomyelitis Pain Ratin Pain Location: NA Pain Goal: Remain pain free Pain Plan: NA Tomorrow's Labs & Rationales: CBC, BEP
--- NOTE | 2017-11-27 11:34 | PN- Diabetes ---
See Addendum Assessment/Plan Diabetes Assessment: This patient has diabetes mellitus with severe complications. He was on Lantus 28 units at home as well as sliding scale Humalog. He came into the hospital with evidence of infection in his foot. Levemir was increased to 15 units twice a day, Novolog coverage before meals was adjusted and He is on Novolog coverage at bedtime as well. Before Each Meal: Bolus Insulin: Novolog < 80 mg/dl: no coverage 80-100 mg/dl: 5 units 101-120 mg/dl: 5 units 121-150 mg/dl: 5 units 151-200 mg/dl: 6 units 201-250 mg/dl: 7 units 251-300 mg/dl: 8 units 301-350 mg/dl: 9 units 351-400 mg/dl: 10 units > 400 mg/dl: 11 units His FSGs were 181, 177, 302, 255 and 189 Plan: 1. increase Levemir to 16 units twice a day; 2. continue the current Novolog coverage before meals and Novolog coverage at bedtime; 3. monitor FSGs. will follow. Subjective Subjective: His glucose levels are still not controlled. Objective Last 24 Hrs of Vital Signs/I&O Vital Signs Date Time Temp Pulse Resp B/P B/P Pulse O2 O2 Flow FiO2 Mean Ox Delivery Rate 11/27 0840 97.2 56 20 110/70 11/27 0832 97.2 56 20 110/70 11/27 0659 97.2 56 20 110/70 96 Room Air 11/27 0000 Room Air 11/26 2140 97.9 62 20 110/66 95 11/26 1414 98.6 63 20 110/60 96 Room Air Intake & Output 11/27 1600 11/27 0800 11/27 0000 Intake Total 240 Output Total 1125 800 Balance -1125 -560 Intake, Oral 240 Number 0 0 Bowel Movements Output, Urine 1125 800 Patient 187 lb Weight Weight Bed scale Measurement Method Findings Pertinent Lab/Joel Results: Laboratory Tests 11/27 11/27 11/26 11/26 0625 0130 2230 1300 Coagulation APTT (25 - 37 SEC) 41 H 63 H Hematology CBC w Diff Pending WBC Pending RBC Pending Hgb Pending Hct Pending MCV Pending MCH Pending MCHC Pending RDW Pending Plt Count Pending MPV Pending Toxicology Vancomycin Trough Cancelled
[2017-11-27 11:52] LABS: ABSOLUTE BASOPHIL COUNT 0 /CUMM (0.0-0.2); ABSOLUTE EOSINOPHIL COUNT 0.2 /CUMM (0.0-0.7); ABSOLUTE GRANULOCYTE CT 5.4 /CUMM (1.4-6.5); ABSOLUTE LYMPH COUNT 0.7 /CUMM (1.2-3.4); ABSOLUTE MONOCYTE COUNT 0.6 /CUMM (0.10-0.60); MEAN CORPUSCULAR VOLUME 81.7 FL (80.0-94.0); RED BLOOD CELL CT 2.81 /CUMM (4.70-6.10)
[2017-11-27 11:55] LABS: BASOPHIL % 0.7 % (0.0-2.0); EOSINOPHIL % 3.1 % (0-5); GRANULOCYTE % 77.6 % (42.2-75.2); MEAN CORPUSCULAR HGB 26.6 PG (27.0-31.0); MEAN CORPUSCULAR HGB CONC 32.5 G/DL (33.0-37.0); MEAN PLATELET VOLUME 7.8 FL (7.4-10.4); PLATELET COUNT 330 /CUMM (130-400); RBC DISTRIBUTION WIDTH 17.7 % (11.5-14.5)
[2017-11-27 14:28] VITALS: BP 110/65
[2017-11-27 22:18] VITALS: BP 118/60
[2017-11-28 06:02] VITALS: BP 120/62
--- NOTE | 2017-11-28 08:44 | PN- Housestaff ---
Dg Villafuerte 11/28/17 0844: Subjective Follow-up For: Osteomyelitis of right second MTP status post metatarsal amputation Subjective: FSG 93, 161. Patient asymptomatic. No acute events overnight Review of Systems Constitutional: Reports: see HPI. Objective Last 24 Hrs of Vital Signs/I&O Vital Signs Date Time Temp Pulse Resp B/P B/P Pulse O2 O2 Flow FiO2 Mean Ox Delivery Rate 11/28 0819 62 122/60 11/28 0818 62 122/60 11/28 0602 97.6 57 22 120/62 94 Room Air 11/27 2218 98.5 60 20 118/60 95 11/27 1428 97.5 63 20 110/65 97 Room Air Intake & Output 11/28 1600 11/28 0800 11/28 0000 Intake Total 240 360 Output Total 1300 Balance -1060 360 Intake, Oral 240 360 Output, Urine 1300 Patient 184 lb Weight Physical Exam General Appearance: Alert, Oriented X3, Cooperative, No Acute Distress Cardiovascular: Regular Rate, Normal S1, Normal S2 Lungs: Clear to Auscultation, Normal Air Movement Abdomen: Normal Bowel Sounds, Soft, No Tenderness Extremities: R foot dressing intact Current Medications: Current Medications Sig/Ira Start time Last Medication Dose Route Stop Time Status Admin Alprazolam 0.5 MG DAILY NEEDED PRN 11/25 2144 AC 11/27 PO 12/02 Amiodarone HCl 100 MG DAILY 11/18 09 11/28 PO 0819 Apixaban 5 MG BID 11/27 0900 AC 11/28 PO 0818 Atorvastatin Calcium 10 MG DAILY 11/18 09 11/28 PO 0818 Calcitriol 0.25 MCG DAILY 11/19 1159 11/28 PO 0818 Calcium Carbonate 500 MG TID 11/19 1400 11/28 PO 0818 Cholecalciferol 2,000 IU DAILY 11/19 1200 AC 11/28 PO 0819 Docusate Sodium 100 MG DAILY 11/24 1323 AC 11/28 PO 0819 Epoetin Onofre 20,000 U EVERY 2 WEEKS 11/23 1700 11/23 LA 1720 Escitalopram Oxalate 20 MG DAILY 11/20 0900 AC 11/28 PO 0818 Insulin Aspart 0 TIDAC/HS 11/27 1200 AC 11/28 SC 0816 Insulin Aspart 0 AT BEDTIME 11/25 2100 DC 11/26 LA 2035 Insulin Aspart 0 TIDAC 11/25 1700 DC 11/27 SC 0831 Insulin Detemir 16 UNITS BID 11/27 2100 AC 11/28 SC 08 Insulin Detemir 15 UNITS BID 11/26 2100 DC 11/27 SC 0830 Melatonin 5 MG AT BEDTIME PRN 11/23 2215 AC 11/23 PO 2210 Metoprolol Succinate 12.5 MG DAILY 11/18 0900 AC 11/28 PO 0818 Mycophenolate Mofetil 1,000 MG BID 11/18 0900 AC 11/28 PO 0818 Omeprazole 20 MG DAILY AC 11/18 0700 AC 11/28 PO 0555 Oxycodone HCl 5 MG Q6-PRN PRN 11/26 0915 AC 11/28 PO 0959 Polyethylene Glycol 17 GM DAILY 11/24 1323 AC 11/28 PO 08 Ramelteon 8 MG AT BEDTIME 11/19 2100 AC 11/27 PO 2016 Tacrolimus 5 MG 1000 11/23 1000 AC 11/28 PO 08 Vancomycin HCl 1,000 MG 2300 11/18 2300 AC 11/27 Sodium Chloride 250 ML IV 2301 Last 24 Hrs of Lab/Joel Results Last 24 Hrs of Labs/Mics: Laboratory Tests 11/28/17 0600: Anion Gap 10, Estimated GFR 54 L, BUN/Creatinine Ratio 33.8 H, CBC w Diff MAN DIFF ORDERED, RBC 2.88 L, MCV 81.5, MCH 27.0, MCHC 33.1, RDW 18.0 H, MPV 7.9, Gran % 72.5, Lymphocytes % 14.0 L, Monocytes % 8.5, Eosinophils % 4.4, Basophils % 0.6, Absolute Granulocytes 4.1, Absolute Lymphocytes 0.8 L, Absolute Monocytes 0.5, Absolute Eosinophils 0.2, Absolute Basophils 0, Platelet Estimate ADEQUATE, Polychromasia 1+, Hypochromic-Microcytic 2+, Poikilocytosis 2 +, Anisocytosis 2+ 11/27/172199: Vancomycin Trough 10.8 Assessment/Plan Assessment: Mr. Edouard is a 71-year-old male presented to ED with fever, chills and nausea with past medical history of significant for ESRD status post renal transplant on tacrolimus and CellCept, paroxysmal atrial fibrillation on Eliquis, HTN, HLD, CVA, DM, osteomyelitis of the right distal phalanx of the right great toe status post partial amputation 09/09/17 with positive pathology for osteomyelitis, blood and OR culture growing Escherichia coli, Citrobacter and MRSA, wound had clean margins Problem list: #Osteomyelitis of right second MTP status post debridement #SHIRA and CKD #Anemia #Mild hyperkalemia Plan: * Postop R foot XR pending * We will continue to monitor potassium * Hemoglobing stable without requiring transfusion * Continue vancomycin. Vancomycin trough level 10.8 * Continue tacrolimus and CellCept * Tfjo-Jdnb-mtqnbdy scale, Levemir, NovoLog insulin as per Endo * Continue amiodarone, metoprolol for PAF * Continue Apixaban * Echo showed Moderate concentric left ventricular hypertrophy with an EF of 55- 60 %. No obvious regional wall motion abnormalities. * Appreciate Endo, podiatry, ID, vascular surgery, nephrology, cardio recommendations Code-full code Diet-diabetic diet, potassium and sodium restriction Problem List: 1. Osteomyelitis Pain Ratin Pain Location: NA Pain Goal: Remain pain free Pain Plan: NA Tomorrow's Labs & Rationales: Preet Sanchez MD 11/28/17 1026: Attending MD Review Statement Attending Statement Attending MD Statement: examined this patient, discuss w/resident/PA/CLUB CAR ATTENDANT, agreed w/resident/PA/CLUB CAR ATTENDANT, reviewed EMR data (avail), amended to note Attending Assessment/Plan: Mr. Edouard was interviewed and examined. His CMR was reviewed. His parenteral complaint is of postoperative pain at his surgical site. He has remained afebrile with satisfactory and stable vital signs. He is in no acute distress. Pulmonary exam shows equal breath sounds and is clear. Cardiac exam reveals a regular rate and rhythm. His abdomen is soft and nontender. His surgical dressing is clean and dry. Review of his laboratory studies revealed them to be stable. He appears to be under good control per his sliding scale insulin regimen. We are continuing to treat his MRSA osteomyelitis with vancomycin. We are adjusting his doses per trough levels. We are continuing basal insulin and sliding scale coverage for his diabetes. We are continuing amiodarone, apixaban, and metoprolol for his PAF We'll continue his anti-transplant rejection regimen We are continuing remains other maintenance medications. We will obtain a follow-up foot x-ray as requested by ID
[2017-11-28 09:17] LABS: ABSOLUTE BASOPHIL COUNT 0 /CUMM (0.0-0.2); ABSOLUTE EOSINOPHIL COUNT 0.2 /CUMM (0.0-0.7); ABSOLUTE GRANULOCYTE CT 4.1 /CUMM (1.4-6.5); ABSOLUTE LYMPH COUNT 0.8 /CUMM (1.2-3.4); ABSOLUTE MONOCYTE COUNT 0.5 /CUMM (0.10-0.60); BASOPHIL % 0.6 % (0.0-2.0); EOSINOPHIL % 4.4 % (0-5); GRANULOCYTE % 72.5 % (42.2-75.2); HEMATOCRIT 23.5 % (42-52); MEAN CORPUSCULAR HGB CONC 33.1 G/DL (33.0-37.0); MEAN CORPUSCULAR VOLUME 81.5 FL (80.0-94.0); MEAN PLATELET VOLUME 7.9 FL (7.4-10.4); PLATELET COUNT 316 /CUMM (130-400); RED BLOOD CELL CT 2.88 /CUMM (4.70-6.10); WHITE BLOOD CELL COUNT 5.6 /CUMM (4.8-10.8)
--- NOTE | 2017-11-28 13:21 | PN- Diabetes ---
Assessment/Plan Diabetes Assessment: This patient has diabetes mellitus with severe complications. He was on Lantus 28 units at home as well as sliding scale Humalog. He came into the hospital with evidence of infection in his foot. Levemir was increased to 16 units twice a day, Novolog coverage before meals was adjusted and He is on Novolog coverage at bedtime as well. Before Each Meal: Bolus Insulin: Novolog < 80 mg/dl: no coverage 80-100 mg/dl: 5 units 101-120 mg/dl: 5 units 121-150 mg/dl: 5 units 151-200 mg/dl: 6 units 201-250 mg/dl: 7 units 251-300 mg/dl: 8 units 301-350 mg/dl: 9 units 351-400 mg/dl: 10 units > 400 mg/dl: 11 units Novolog coverage at bedtime. FSG < 200 mg/dl, no coverage 201-250 mg/dl: 2 units 251-300 mg/dl: 3 units 301-350 mg/dl: 4 units 351-400 mg/dl: 5 units > 400 mg/dl: 6 units His FSGs were 125, 197, 161 and 93. Plan: continue the current insulin regimen for now; monitor FSGs; monitor his K level. will follow. Subjective Subjective: His FSGs were better. Objective Last 24 Hrs of Vital Signs/I&O Vital Signs Date Time Temp Pulse Resp B/P B/P Pulse O2 O2 Flow FiO2 Mean Ox Delivery Rate 11/28 0819 62 122/60 11/28 0818 62 122/60 11/28 0800 Room Air 11/28 0602 97.6 57 22 120/62 94 Room Air 11/27 2218 98.5 60 20 118/60 95 11/27 1428 97.5 63 20 110/65 97 Room Air Intake & Output 11/28 1600 11/28 0800 11/28 0000 Intake Total 240 360 Output Total 250 1300 Balance -250 -1060 360 Intake, Oral 240 360 Output, Urine 250 1300 Patient 184 lb Weight Findings Pertinent Lab/Joel Results: Laboratory Tests 11/28 11/27 0600 2200 Chemistry Sodium (137 - 145 mmol/L) 140 Potassium (3.5 - 5.1 mmol/L) 5.5 H Chloride (98 - 107 mmol/L) 102 Carbon Dioxide (22 - 30 mmol/L) 28 Anion Gap (5 - 16) 10 BUN (9 - 20 mg/dL) 44 H Creatinine (0.7 - 1.2 mg/dL) 1.3 H Estimated GFR (>60 ml/min) 54 L BUN/Creatinine Ratio (7 - 25 %) 33.8 H Hematology CBC w Diff MAN DIFF ORDERED WBC (4.8 - 10.8 /CUMM) 5.6 RBC (4.70 - 6.10 /CUMM) 2.88 L Hgb (14.0 - 18.0 G/DL) 7.8 L Hct (42 - 52 %) 23.5 L MCV (80.0 - 94.0 FL) 81.5 MCH (27.0 - 31.0 PG) 27.0 MCHC (33.0 - 37.0 G/DL) 33.1 RDW (11.5 - 14.5 %) 18.0 H Plt Count (130 - 400 /CUMM) 316 MPV (7.4 - 10.4 FL) 7.9 Gran % (42.2 - 75.2 %) 72.5 Lymphocytes % (20.5 - 51.1 %) 14.0 L Monocytes % (1.7 - 9.3 %) 8.5 Eosinophils % (0 - 5 %) 4.4 Basophils % (0.0 - 2.0 %) 0.6 Absolute Granulocytes (1.4 - 6.5 /CUMM) 4.1 Absolute Lymphocytes (1.2 - 3.4 /CUMM) 0.8 L Absolute Monocytes (0.10 - 0.60 /CUMM) 0.5 Absolute Eosinophils (0.0 - 0.7 /CUMM) 0.2 Absolute Basophils (0.0 - 0.2 /CUMM) 0 Platelet Estimate (ADEQUATE) ADEQUATE Polychromasia 1+ Hypochromic-Microcytic 2+ Poikilocytosis 2+ Anisocytosis 2+ Toxicology Vancomycin Trough (10.0 - 20.0 ug/mL) 10.8
--- NOTE | 2017-11-28 14:21 | RADIOLOGY REPORT ---
EXAMINATION: XR FOOT, RIGHT CLINICAL INFORMATION: Postoperative right foot transmetatarsal amputation. COMPARISON: Pre-op right foot done on 11/17/2017. TECHNIQUE: AP, lateral, and oblique views of the right foot. FINDINGS: Postoperative changes of transmetatarsal amputation is noted at 2nd through 5th metatarsals. The surgical margin appears sharp, and well defined. Previously documented amputation at the base of the 1st metatarsal appears unchanged. The remainder of the visualized bones are intact, appear unchanged. Extensive arterial calcifications are seen. No other significant change. IMPRESSION: Expected postoperative changes of transmetatarsal amputation at 2nd through 5th metatarsals, new since 11/17/2017. No other significant change.
[2017-11-28 15:03] VITALS: BP 110/80
--- NOTE | 2017-11-28 17:52 | PN- Infect Dx ---
Subjective Subjective: No fever/chills. C/o about the food. Review of Systems Comments: 12 points reviewed as noted, otherwise negative. Objective Last 24 Hrs of Vital Signs/I&O Vital Signs Date Time Temp Pulse Resp B/P B/P Pulse O2 O2 Flow FiO2 Mean Ox Delivery Rate 11/28 1503 98.2 63 20 110/80 95 Room Air 11/28 0819 62 122/60 11/28 0818 62 122/60 11/28 0800 Room Air 11/28 0602 97.6 57 22 120/62 94 Room Air 11/27 2218 98.5 60 20 118/60 95 Intake & Output 11/28 1600 11/28 0800 11/28 0000 Intake Total 480 240 360 Output Total 1130 1300 Balance -650 -1060 360 Intake, Oral 480 240 360 Output, Urine 1130 1300 Patient 184 lb Weight Physical Exam Other Physical Findings: He appears comfortable in no acute distress Head: atraumatic, normal appearance Eyes:Bilateral: normal appearance, PERRL, EOMI. Ears, Nose, Throat: normal pharynx, normal ENT inspection, hearing grossly normal Neck: normal inspection, supple, full range of motion, no midline tenderness Respiratory: normal breath sounds, chest non-tender, no respiratory distress, quiet respiration, lungs clear; Chest Pro-Line in the right upper chest with no inflammation at the site Cardiovascular: normal peripheral pulses, irregularly irregular, norml femoral pulses equa Gastrointestinal: normal bowel sounds, soft, non-tender, no organomegaly Back: normal inspection, normal range of motion, no vertebral tenderness Extremities: no edema, pelvis stable, dressing with with chronic nonhealing ulcer seen Right foot dressing intact Neurologic/Psych: normal Lymphatic: no anterior cervical YADIRA Results Last 24 Hours of Lab Results: Laboratory Tests 11/28 11/27 0600 2200 Chemistry Sodium (137 - 145 mmol/L) 140 Potassium (3.5 - 5.1 mmol/L) 5.5 H Chloride (98 - 107 mmol/L) 102 Carbon Dioxide (22 - 30 mmol/L) 28 Anion Gap (5 - 16) 10 BUN (9 - 20 mg/dL) 44 H Creatinine (0.7 - 1.2 mg/dL) 1.3 H Estimated GFR (>60 ml/min) 54 L BUN/Creatinine Ratio (7 - 25 %) 33.8 H Hematology CBC w Diff MAN DIFF ORDERED WBC (4.8 - 10.8 /CUMM) 5.6 RBC (4.70 - 6.10 /CUMM) 2.88 L Hgb (14.0 - 18.0 G/DL) 7.8 L Hct (42 - 52 %) 23.5 L MCV (80.0 - 94.0 FL) 81.5 MCH (27.0 - 31.0 PG) 27.0 MCHC (33.0 - 37.0 G/DL) 33.1 RDW (11.5 - 14.5 %) 18.0 H Plt Count (130 - 400 /CUMM) 316 MPV (7.4 - 10.4 FL) 7.9 Gran % (42.2 - 75.2 %) 72.5 Lymphocytes % (20.5 - 51.1 %) 14.0 L Monocytes % (1.7 - 9.3 %) 8.5 Eosinophils % (0 - 5 %) 4.4 Basophils % (0.0 - 2.0 %) 0.6 Absolute Granulocytes (1.4 - 6.5 /CUMM) 4.1 Absolute Lymphocytes (1.2 - 3.4 /CUMM) 0.8 L Absolute Monocytes (0.10 - 0.60 /CUMM) 0.5 Absolute Eosinophils (0.0 - 0.7 /CUMM) 0.2 Absolute Basophils (0.0 - 0.2 /CUMM) 0 Platelet Estimate (ADEQUATE) ADEQUATE Polychromasia 1+ Hypochromic-Microcytic 2+ Poikilocytosis 2+ Anisocytosis 2+ Toxicology Vancomycin Trough (10.0 - 20.0 ug/mL) 10.8 Last 24 Hours of Joel Results: SPEC #: [id number] ADELAIDA: 11/18/17 STATUS: COMP RECD: 11/18/[address]: Rey Dye DPM SOURCE: EXTREMITIE ENTR: 11/18/[address]: Lakeisha RANKIN,Gilbert Mark SPDESC: TOE 2 R FT ORDERED: XTRMOR Procedure Result > GRAM STAIN Final 11/20/17-09 WHITE BLOOD CELLS NONE GRAM POSITIVE COCCI MODERATE > EXTREMITIES OR SPECIMEN Final 11/21/17-1017 Heavy growth of: METH RESIST STAPH AUREUS ISOLATED Called to/Readback by TOO by SABINA 11/21/17 1015 PRELIMINARY REPORTED TO AND READ BACK BY : WINDY AT 0908 11/20/17 LAB.SVCY 1. METH RESIST STAPH AUREUS RX ABN ------ --- 1. METH RESIST STAPH AUREUS RX AB ------ -- CEFAZOLIN R AMOXICILLIN/CLAVULINIC ACID R AMPICILLIN/SULBACTAM R TETRACYCLINE S TRIMETHOPRIM/SULFAMETHOXAZOLE S AZITHROMYCIN R CLINDAMYCIN R ERYTHROMYCIN R OXACILLIN R VANCOMYCIN S Recent Imaging Studies: X ray 11/28 FINDINGS: Postoperative changes of transmetatarsal amputation is noted at 2nd through 5th metatarsals. The surgical margin appears sharp, and well defined. Previously documented amputation at the base of the 1st metatarsal appears unchanged. The remainder of the visualized bones are intact, appear unchanged. Extensive arterial calcifications are seen. No other significant change. IMPRESSION: Expected postoperative changes of transmetatarsal amputation at 2nd through 5th metatarsals, new since 11/17/2017. No other significant change. DICTATED BY: Manpreet Huizar MD DATE/TIME DICTATED:11/28/171404 TRUCK LOADER AND UNLOADER:PETRA DATE/TIME TRANSCRIBED:11/28/171404 Assessment/Plan ID Impression: 71-year-old man with a history of diabetes, status post renal transplant 3 years prior to admission for end-stage renal disease, maintained on CellCept and Tacrolimus, hypertension, hyperlipidemia, atrial fibrillation, maintained on Eliquis, status post CVA 8 years prior to admission with no residual deficits, peripheral vascular disease, status post amputations of the left third, right third, partial right fourth and, most recently, the right great toe 4 weeks prior to admission when he was hospitalized for MRSA bacteremia and osteomyelitis, treated initially with Vancomycin, which was changed to Daptomycin because of leukopenia and renal insufficiency felt possibly to be secondary to the Vancomycin, with a right peroneal artery angioplasty performed on that hospitalization, discharged to a rehab facility with a wound VAC and a Pro-Line to complete a 4 week course of antibiotics from his most recent debridement, was admitted on November 17 after presenting to the emergency room with 2 days of nausea, retching, abdominal discomfort and low-grade fevers. MRSA sepsis secondary to gas gangrene/acute on chronic osteomyelitis of the right foot, status post open partial second ray resection over a week agoa and s /p R TMA 11/25 (biopsy results from 11/25 pending). Suggestion: 1. Will need close follow-up as an outpatient with evaluation for possible BKA if his wound does not heal; postop R foot XR results as noted. 2. Weekly CBC, ESR, BUN/creatinine and Vancomycin trough level after discharge. 3. Continue Vancomycin D #10/ course from his negative blood cultures on November 19 (until December 31); please follow with pharmacy regarding redosing the vancomycin as level subtherapeutic; goal vanco trough 15-20.
[2017-11-28 22:00] VITALS: BP 110/60
[2017-11-29 07:12] VITALS: BP 116/60
--- NOTE | 2017-11-29 07:52 | PN- Housestaff ---
Subjective Follow-up For: Osteomyelitis of right second MTP status post metatarsal amputation Subjective: FSG 171, 268. No complaints or acute events overnight Review of Systems Constitutional: Reports: see HPI. Objective Last 24 Hrs of Vital Signs/I&O Vital Signs Date Time Temp Pulse Resp B/P B/P Pulse O2 O2 Flow FiO2 Mean Ox Delivery Rate 11/29 1517 98.3 61 20 110/58 94 11/29 0843 97.8 64 18 116/60 11/29 0841 97.8 64 18 116/60 11/29 0712 97.8 64 18 11660 97 Room Air 11/28 2200 97.8 62 20 110/60 96 Intake & Output 11/29 1600 11/29 0800 11/29 0000 Intake Total 1320 465 480 Output Total 700 1250 1200 Balance 620 -785 -720 Intake, IV 500 Intake, Oral 820 465 480 Number 0 Bowel Movements Output, Urine 700 1250 1200 Patient 185 lb Weight Weight Bed scale Measurement Method Physical Exam General Appearance: Alert, Oriented X3, Cooperative, No Acute Distress Cardiovascular: Regular Rate, Normal S1, Normal S2 Lungs: Clear to Auscultation, Normal Air Movement Abdomen: Normal Bowel Sounds, Soft, No Tenderness Extremities: R foot dressing intact Current Medications: Current Medications Sig/Ira Start time Last Medication Dose Route Stop Time Status Admin Alprazolam 0.5 MG DAILY NEEDED PRN 11/25 2144 AC 11/27 PO 12/02 Amiodarone HCl 100 MG DAILY 11/18 09 AC 11/29 PO 0843 Apixaban 5 MG BID 11/27 09 AC 11/29 PO 0843 Atorvastatin Calcium 10 MG DAILY 11/18 09 AC 11/29 PO 0843 Calcitriol 0.25 MCG DAILY 11/19 1159 AC 11/29 PO 0843 Calcium Carbonate 500 MG TID 11/19 1400 AC 11/29 PO 1303 Cholecalciferol 2,000 IU DAILY 11/19 1200 AC 11/29 PO 0844 Docusate Sodium 100 MG DAILY 11/24 1323 AC 11/29 PO 0843 Epoetin Onofre 20,000 U EVERY 2 WEEKS 11/23 1700 AC 11/23 SC 1720 Escitalopram Oxalate 20 MG DAILY 11/20 0900 AC 11/29 PO 0843 Insulin Aspart 0 TIDAC/HS 11/27 1200 AC 11/29 SC 1303 Insulin Detemir 16 UNITS BID 11/27 2100 AC 11/29 SC 0843 Melatonin 5 MG AT BEDTIME PRN 11/23 2215 AC 11/23 PO 2210 Metoprolol Succinate 12.5 MG DAILY 11/18 0900 AC 11/29 PO 0841 Mycophenolate Mofetil 1,000 MG BID 11/18 0900 AC 11/29 PO 0843 Omeprazole 20 MG DAILY AC 11/18 0700 AC 11/29 PO 0707 Oxycodone HCl 5 MG Q6-PRN PRN 11/26 0915 AC 11/28 PO 1753 Polyethylene Glycol 17 GM DAILY 11/24 1323 AC 11/29 PO 0845 Ramelteon 8 MG AT BEDTIME 11/19 2100 AC 11/28 PO 2109 Tacrolimus 5 MG 1000 11/23 1000 AC 11/29 PO 1039 Vancomycin HCl 1,250 MG DAILY 11/30 0900 AC Sodium Chloride 250 ML IV Vancomycin HCl 1,250 MG DAILY 11/29 2300 CAN Sodium Chloride 250 ML IV Vancomycin HCl 250 MG ONCE ONE 11/29 1500 DC 11/29 Sodium Chloride 100 ML IV 11/29 1529 1549 Vancomycin HCl 1,000 MG Q12 11/29 0900 DC 11/29 Sodium Chloride 250 ML IV 1038 Vancomycin HCl 1,000 MG 2300 11/18 2300 DC 11/28 Sodium Chloride 250 ML IV 2225 Last 24 Hrs of Lab/Joel Results Last 24 Hrs of Labs/Mics: Laboratory Tests 11/29/17 0745: Anion Gap 8, Estimated GFR 50 L, BUN/Creatinine Ratio 32.1 H, Calcium 8.1 L, Phosphorus 5.3 H, Magnesium 1.6, Albumin 2.8 L Assessment/Plan Assessment: Mr. Edouard is a 71-year-old male presented to ED with fever, chills and nausea with past medical history of significant for ESRD status post renal transplant on tacrolimus and CellCept, paroxysmal atrial fibrillation on Eliquis, HTN, HLD, CVA, DM, osteomyelitis of the right distal phalanx of the right great toe status post partial amputation 09/09/17 with positive pathology for osteomyelitis, blood and OR culture growing Escherichia coli, Citrobacter and MRSA, wound had clean margins Problem list: #Osteomyelitis of right second MTP status post debridement #SHIRA and CKD #Anemia #Mild hyperkalemia Plan: * Postop R foot XR showed postoperative changes of transmetatarsal amputation * We will continue to monitor potassium * Hemoglobing stable without requiring transfusion * We will increase vancomycin 1000 to 1250 mg daily. Vancomycin trough level subtherapeutic. * We will obtain Vanc trough 12/03/17 before scheduled dose * Continue tacrolimus and CellCept * Yxem-Omee-cibpbhc scale, Levemir, NovoLog insulin as per Endo * Continue amiodarone, metoprolol for PAF * Continue Apixaban * Echo showed Moderate concentric left ventricular hypertrophy with an EF of 55- 60 %. No obvious regional wall motion abnormalities. * Appreciate psych Endo, podiatry, ID, vascular surgery, nephrology, cardio recommendations Code-full code Diet-diabetic diet, potassium and sodium restriction Problem List: 1. Osteomyelitis Pain Ratin Pain Location: NA Pain Goal: Remain pain free Pain Plan: NA Tomorrow's Labs & Rationales: CBC, BEP
--- NOTE | 2017-11-29 08:10 | PN- Diabetes ---
Assessment/Plan Diabetes Assessment: Patient states he feels okay. There is some pain in his foot at the surgical site. He is eating okay but because of the potassium restriction in his diet he is getting very little in the way of vegetables. He feels that he needs more calories and he has lost weight. The patient is presently on 16 units of Levemir twice a day along with sliding scale NovoLog before meals with a separate sliding scale at bedtime. His fingerstick readings yesterday were 93 before breakfast, 173 before lunch, 153 before dinner, and 153 at bedtime. This morning his fingerstick blood sugar before breakfast is 171. Plan: Suggest continue the present insulin. If the patient is discharged to rehab he can go out on his present insulin regimen. Subjective Subjective: Feels okay Review of Systems Constitutional: Denies: chills, fever. Cardiovascular: Denies: chest pain. Respiratory: Denies: short of breath. Gastrointestinal: Denies: nausea, vomiting. Objective Last 24 Hrs of Vital Signs/I&O Vital Signs Date Time Temp Pulse Resp B/P B/P Pulse O2 O2 Flow FiO2 Mean Ox Delivery Rate 11/29 0712 97.8 64 18 116/60 97 Room Air 11/28 2200 97.8 62 20 110/60 96 11/28 1503 98.2 63 20 110/80 95 Room Air 11/28 0819 62 122/60 11/28 0818 62 122/60 Intake & Output 11/29 1600 11/29 0800 11/29 0000 Intake Total 465 480 Output Total 1250 1200 Balance -785 -720 Intake, Oral 465 480 Number 0 Bowel Movements Output, Urine 1250 1200 Patient 185 lb Weight Weight Bed scale Measurement Method Vital Signs Date Time Temp Pulse Resp B/P B/P Pulse O2 O2 Flow FiO2 Mean Ox Delivery Rate 11/29 0712 97.8 64 18 116/60 97 Room Air 11/28 2200 97.8 62 20 110/60 96 11/28 1503 98.2 63 20 110/80 95 Room Air 11/28 0819 62 122/60 11/28 0818 62 122/60 Intake & Output 11/29 1600 11/29 0800 05 0000 Intake Total 465 480 Output Total 1250 1200 Balance -785 -720 Intake, Oral 465 480 Number 0 Bowel Movements Output, Urine 1250 1200 Patient 185 lb Weight Weight Bed scale Measurement Method Physical Exam General Appearance: alert, awake, comfortable Head: normal appearance Neck: normal inspection Respiratory: normal breath sounds Cardiovascular: regular rate/rhythm Abdomen: normal bowel sounds Extremities: normal inspection, right foot bandaged Current Medications: Current Medications Sig/Ira Start time Last Medication Dose Route Stop Time Status Admin Alprazolam 0.5 MG DAILY NEEDED PRN 11/25 2144 AC 11/27 PO 12/02 Amiodarone HCl 100 MG DAILY 11/18 09 AC 11/28 PO 08 Apixaban 5 MG BID 11/27 0900 AC 11/28 PO 210 Atorvastatin Calcium 10 MG DAILY 11/18 09 AC 11/28 PO 0818 Calcitriol 0.25 MCG DAILY 11/19 1159 AC 11/28 PO 0818 Calcium Carbonate 500 MG TID 11/19 1400 AC 11/28 PO 210 Cholecalciferol 2,000 IU DAILY 11/19 1200 AC 11/28 PO 0819 Docusate Sodium 100 MG DAILY 11/24 1323 AC 11/28 PO 0819 Epoetin Onofre 20,000 U EVERY 2 WEEKS 11/23 1700 AC 11/23 WI 1720 Escitalopram Oxalate 20 MG DAILY 11/20 0900 AC 11/28 PO 0818 Insulin Aspart 0 TIDAC/HS 11/27 1200 AC 11/28 SC 170 Insulin Detemir 16 UNITS BID 11/27 2100 AC 11/28 SC 210 Melatonin 5 MG AT BEDTIME PRN 11/23 2215 AC 11/23 PO 2210 Metoprolol Succinate 12.5 MG DAILY 11/18 09 AC 11/28 PO 0818 Mycophenolate Mofetil 1,000 MG BID 11/18 09 AC 11/28 PO 210 Omeprazole 20 MG DAILY AC 11/18 0700 AC 11/29 PO 0707 Oxycodone HCl 5 MG Q6-PRN PRN 11/26 0915 AC 11/28 PO 1753 Polyethylene Glycol 17 GM DAILY 11/24 1323 AC 11/28 PO 0817 Ramelteon 8 MG AT BEDTIME 11/19 2100 AC 11/28 PO 210 Tacrolimus 5 MG 1000 11/23 1000 AC 11/28 PO 0817 Vancomycin HCl 1,250 MG DAILY 11/29 2300 CANr Sodium Chloride 250 ML IV Vancomycin HCl 1,000 MG Q12 11/29 0900 UNir Sodium Chloride 250 ML IV Vancomycin HCl 1,000 MG 2300 11/18 2300 DC 11/28 Sodium Chloride 250 ML IV 2225 Findings Pertinent Lab/Joel Results: Laboratory Tests 11/29 11/28 11/27 0745 0600 2200 Chemistry Sodium (137 - 145 mmol/L) Pending 140 Potassium (3.5 - 5.1 mmol/L) Pending 5.5 H Chloride (98 - 107 mmol/L) Pending 102 Carbon Dioxide (22 - 30 mmol/L) Pending 28 Anion Gap (5 - 16) Pending 10 BUN (9 - 20 mg/dL) Pending 44 H Creatinine (0.7 - 1.2 mg/dL) Pending 1.3 H Estimated GFR (>60 ml/min) 54 L BUN/Creatinine Ratio (7 - 25 %) Pending 33.8 H Hematology CBC w Diff MAN DIFF ORDERED WBC (4.8 - 10.8 /CUMM) 5.6 RBC (4.70 - 6.10 /CUMM) 2.88 L Hgb (14.0 - 18.0 G/DL) 7.8 L Hct (42 - 52 %) 23.5 L MCV (80.0 - 94.0 FL) 81.5 MCH (27.0 - 31.0 PG) 27.0 MCHC (33.0 - 37.0 G/DL) 33.1 RDW (11.5 - 14.5 %) 18.0 H Plt Count (130 - 400 /CUMM) 316 MPV (7.4 - 10.4 FL) 7.9 Gran % (42.2 - 75.2 %) 72.5 Lymphocytes % (20.5 - 51.1 %) 14.0 L Monocytes % (1.7 - 9.3 %) 8.5 Eosinophils % (0 - 5 %) 4.4 Basophils % (0.0 - 2.0 %) 0.6 Absolute Granulocytes (1.4 - 6.5 /CUMM) 4.1 Absolute Lymphocytes (1.2 - 3.4 /CUMM) 0.8 L Absolute Monocytes (0.10 - 0.60 /CUMM) 0.5 Absolute Eosinophils (0.0 - 0.7 /CUMM) 0.2 Absolute Basophils (0.0 - 0.2 /CUMM) 0 Platelet Estimate (ADEQUATE) ADEQUATE Polychromasia 1+ Hypochromic-Microcytic 2+ Poikilocytosis 2+ Anisocytosis 2+ Toxicology Vancomycin Trough (10.0 - 20.0 ug/mL) 10.8 11/27 11/27 1030 0930 Chemistry Sodium (137 - 145 mmol/L) 136 L Potassium (3.5 - 5.1 mmol/L) 5.6 H Chloride (98 - 107 mmol/L) 101 Carbon Dioxide (22 - 30 mmol/L) 27 Anion Gap (5 - 16) 8 BUN (9 - 20 mg/dL) 39 H Creatinine (0.7 - 1.2 mg/dL) 1.2 Estimated GFR (>60 ml/min) 60 BUN/Creatinine Ratio (7 - 25 %) 32.5 H Coagulation APTT Cancelled Hematology CBC w Diff NO MAN DIFF REQ WBC (4.8 - 10.8 /CUMM) 7.0 RBC (4.70 - 6.10 /CUMM) 2.81 L Hgb (14.0 - 18.0 G/DL) 7.5 L Hct (42 - 52 %) 23.0 L MCV (80.0 - 94.0 FL) 81.7 MCH (27.0 - 31.0 PG) 26.6 L MCHC (33.0 - 37.0 G/DL) 32.5 L RDW (11.5 - 14.5 %) 17.7 H Plt Count (130 - 400 /CUMM) 330 MPV (7.4 - 10.4 FL) 7.8 Gran % (42.2 - 75.2 %) 77.6 H Lymphocytes % (20.5 - 51.1 %) 10.4 L Monocytes % (1.7 - 9.3 %) 8.2 Eosinophils % (0 - 5 %) 3.1 Basophils % (0.0 - 2.0 %) 0.7 Absolute Granulocytes (1.4 - 6.5 /CUMM) 5.4 Absolute Lymphocytes (1.2 - 3.4 /CUMM) 0.7 L Absolute Monocytes (0.10 - 0.60 /CUMM) 0.6 Absolute Eosinophils (0.0 - 0.7 /CUMM) 0.2 Absolute Basophils (0.0 - 0.2 /CUMM) 0
--- NOTE | 2017-11-29 09:14 | PN- Pulmonary ---
Subjective HPI/Critical Care Issues: Doing better Stable Objective Current Medications: Current Medications Sig/Ira Start time Last Medication Dose Route Stop Time Status Admin Alprazolam 0.5 MG DAILY NEEDED PRN 11/25 2144 AC 11/27 PO 12/02 Amiodarone HCl 100 MG DAILY 11/18 09 11/29 PO 0843 Apixaban 5 MG BID 11/27 0900 11/29 PO 0843 Atorvastatin Calcium 10 MG DAILY 11/18 09 AC 11/29 PO 0843 Calcitriol 0.25 MCG DAILY 11/19 1159 AC 11/29 PO 0843 Calcium Carbonate 500 MG TID 11/19 1400 AC 11/29 PO 0845 Cholecalciferol 2,000 IU DAILY 11/19 1200 11/29 PO 0844 Docusate Sodium 100 MG DAILY 11/24 1323 11/29 PO 0843 Epoetin Onofre 20,000 U EVERY 2 WEEKS 11/23 1700 AC 11/23 SC 1720 Escitalopram Oxalate 20 MG DAILY 11/20 0900 11/29 PO 0843 Insulin Aspart 0 TIDAC/HS 11/27 1200 11/29 SC 0842 Insulin Detemir 16 UNITS BID 11/27 2100 AC 11/29 SC 0843 Melatonin 5 MG AT BEDTIME PRN 11/23 2215 AC 11/23 PO 2210 Metoprolol Succinate 12.5 MG DAILY 11/18 09 11/29 PO 0841 Mycophenolate Mofetil 1,000 MG BID 11/18 09 11/29 PO 0843 Omeprazole 20 MG DAILY AC 11/18 0700 11/29 PO 0707 Oxycodone HCl 5 MG Q6-PRN PRN 11/26 0915 11/28 PO 1753 Polyethylene Glycol 17 GM DAILY 11/24 1323 11/29 PO 0845 Ramelteon 8 MG AT BEDTIME 11/19 2100 AC 11/28 PO 2109 Tacrolimus 5 MG 1000 11/23 1000 AC 11/28 PO 0817 Vancomycin HCl 1,250 MG DAILY 11/29 2300 CAN Sodium Chloride 250 ML IV Vancomycin HCl 1,000 MG Q12 11/29 0900 AC Sodium Chloride 250 ML IV Vancomycin HCl 1,000 MG 2300 11/18 2300 DC 11/28 Sodium Chloride 250 ML IV 2225 Laboratory Tests 11/29 11/28 11/27 0745 0600 2200 Chemistry Sodium (137 - 145 mmol/L) 140 140 Potassium (3.5 - 5.1 mmol/L) 5.5 H 5.5 H Chloride (98 - 107 mmol/L) 102 102 Carbon Dioxide (22 - 30 mmol/L) 29 28 Anion Gap (5 - 16) 8 10 BUN (9 - 20 mg/dL) 45 H 44 H Creatinine (0.7 - 1.2 mg/dL) 1.4 H 1.3 H Estimated GFR (>60 ml/min) 50 L 54 L BUN/Creatinine Ratio (7 - 25 %) 32.1 H 33.8 H Hematology CBC w Diff MAN DIFF ORDERED WBC (4.8 - 10.8 /CUMM) 5.6 RBC (4.70 - 6.10 /CUMM) 2.88 L Hgb (14.0 - 18.0 G/DL) 7.8 L Hct (42 - 52 %) 23.5 L MCV (80.0 - 94.0 FL) 81.5 MCH (27.0 - 31.0 PG) 27.0 MCHC (33.0 - 37.0 G/DL) 33.1 RDW (11.5 - 14.5 %) 18.0 H Plt Count (130 - 400 /CUMM) 316 MPV (7.4 - 10.4 FL) 7.9 Gran % (42.2 - 75.2 %) 72.5 Lymphocytes % (20.5 - 51.1 %) 14.0 L Monocytes % (1.7 - 9.3 %) 8.5 Eosinophils % (0 - 5 %) 4.4 Basophils % (0.0 - 2.0 %) 0.6 Absolute Granulocytes (1.4 - 6.5 /CUMM) 4.1 Absolute Lymphocytes (1.2 - 3.4 /CUMM) 0.8 L Absolute Monocytes (0.10 - 0.60 /CUMM) 0.5 Absolute Eosinophils (0.0 - 0.7 /CUMM) 0.2 Absolute Basophils (0.0 - 0.2 /CUMM) 0 Platelet Estimate (ADEQUATE) ADEQUATE Polychromasia 1+ Hypochromic-Microcytic 2+ Poikilocytosis 2+ Anisocytosis 2+ Toxicology Vancomycin Trough (10.0 - 20.0 ug/mL) 10.8 11/27 11/27 1030 0930 Chemistry Sodium (137 - 145 mmol/L) 136 L Potassium (3.5 - 5.1 mmol/L) 5.6 H Chloride (98 - 107 mmol/L) 101 Carbon Dioxide (22 - 30 mmol/L) 27 Anion Gap (5 - 16) 8 BUN (9 - 20 mg/dL) 39 H Creatinine (0.7 - 1.2 mg/dL) 1.2 Estimated GFR (>60 ml/min) 60 BUN/Creatinine Ratio (7 - 25 %) 32.5 H Coagulation APTT Cancelled Hematology CBC w Diff NO MAN DIFF REQ WBC (4.8 - 10.8 /CUMM) 7.0 RBC (4.70 - 6.10 /CUMM) 2.81 L Hgb (14.0 - 18.0 G/DL) 7.5 L Hct (42 - 52 %) 23.0 L MCV (80.0 - 94.0 FL) 81.7 MCH (27.0 - 31.0 PG) 26.6 L MCHC (33.0 - 37.0 G/DL) 32.5 L RDW (11.5 - 14.5 %) 17.7 H Plt Count (130 - 400 /CUMM) 330 MPV (7.4 - 10.4 FL) 7.8 Gran % (42.2 - 75.2 %) 77.6 H Lymphocytes % (20.5 - 51.1 %) 10.4 L Monocytes % (1.7 - 9.3 %) 8.2 Eosinophils % (0 - 5 %) 3.1 Basophils % (0.0 - 2.0 %) 0.7 Absolute Granulocytes (1.4 - 6.5 /CUMM) 5.4 Absolute Lymphocytes (1.2 - 3.4 /CUMM) 0.7 L Absolute Monocytes (0.10 - 0.60 /CUMM) 0.6 Absolute Eosinophils (0.0 - 0.7 /CUMM) 0.2 Absolute Basophils (0.0 - 0.2 /CUMM) 0 Vital Signs & I&O Last 24 Hrs of Vitals and I&O: Vital Signs Date Time Temp Pulse Resp B/P B/P Pulse O2 O2 Flow FiO2 Mean Ox Delivery Rate 11/29 0843 97.8 64 18 11660 11/29 0841 97.8 64 18 11/29 0712 97.8 64 18 116/60 97 Room Air 11/28 2200 97.8 62 20 110/60 96 11/28 1503 98.2 63 20 110/80 95 Room Air Intake & Output 11/29 1600 11/29 0800 11/29 0000 Intake Total 465 480 Output Total 1250 1200 Balance -785 -720 Intake, Oral 465 480 Number 0 Bowel Movements Output, Urine 1250 1200 Patient 185 lb Weight Weight Bed scale Measurement Method Impression/Plan Impression/Plan Impression/Plan: Head: atraumatic, normal appearance Eyes:Bilateral: normal appearance, PERRL, EOMI. Ears, Nose, Throat: normal pharynx, normal ENT inspection, hearing grossly normal Neck: normal inspection, supple, full range of motion, no midline tenderness Respiratory: normal breath sounds, chest non-tender, no respiratory distress, quiet respiration, lungs clear Cardiovascular: normal peripheral pulses, irregularly irregular, norml femoral pulses equa Peripheral Pulses: 4+ carotid (R), 4+ carotid (L) Gastrointestinal: normal bowel sounds, soft, non-tender, no organomegaly Back: normal inspection, normal range of motion, no vertebral tenderness Extremities: no edema, pelvis stable, dressing seen after his tma Neurologic/Psych: normal Reflexes:2+: bicep (R), bicep (L). Lymphatic: no anterior cervical adenavf intact IMPRESSION This is a gentleman with s/p renal transplant on immunosupp with initial infected toe with osteo s/p previous surg, previous mrsa bacteremia, DM with * Recurrent MRSA sepsis and Recurrent osteo and infected foot who was recently on prolonged abx and multiple surgeries now with ongoing osteo and cellulitis- now s/p TMA * Previous neutopenia and anemia - needs follow up * DM, autonomic neuropathy, gastropathy, pvd * Previous MRI showing very small punctate lesions prob ateromatous small emboli , on anticoag, and statin * PT with Pafib in Sinus and sig atheromatous aorta, small pfo, - on eloquis * H/o of Prolonged qtc, previous low mag need to continue to monitor * SHIRA with CKD s/p renal transplant, creat now up to 1.8 * DM insulin requiring * PVD, previous history of stoke, and previous toe amputation, now angioplasty of the lower limb with recent amputations * Previous secondary hyperparathyroid. Sig autonomic dysfunction was on fludocortisone * Pafib on eliquis (in sinus on amiodarone) (being dosed for renal function) * Depression and anxiety * Peripheral neuropathy REC * IV abx per ID for a total of 42 days per ID * Upon dc needs weekly CBC, esr, vanco and tacrolimus level (tac level should be drawn just before his dose) * DM mgt as noted by endo * Please have psych see him today * Cont tacrolimus and mycophenolate * Diet should be low carb low potassium diet * COnt all meds * Cont eloquis * Keep sugars around 150 * Watch bp closely
--- NOTE | 2017-11-29 14:35 | PN- Infect Dx ---
See Addendum Subjective Subjective: Afebrile. He notes occasional minimal discomfort in the right foot. Objective Last 24 Hrs of Vital Signs/I&O Vital Signs Date Time Temp Pulse Resp B/P B/P Pulse O2 O2 Flow FiO2 Mean Ox Delivery Rate 11/29 0843 97.8 64 18 116/60 11/29 0841 97.8 64 18 116/60 11/29 0712 97.8 64 18 116/60 97 Room Air 11/28 2200 97.8 62 20 110/60 96 11/28 1503 98.2 63 20 110/80 95 Room Air Intake & Output 11/29 1600 11/29 0800 11/29 0000 Intake Total 465 480 Output Total 1250 1200 Balance -785 -720 Intake, Oral 465 480 Number 0 Bowel Movements Output, Urine 1250 1200 Patient 185 lb Weight Weight Bed scale Measurement Method Physical Exam Other Physical Findings: He appears comfortable in no acute distress Chest Pro-Line in the right upper chest with no inflammation at the site Lungs are clear Heart regular rhythm with no murmur Extremities right foot wound clean, with no erythema, necrosis or purulence Results Last 24 Hours of Lab Results: Laboratory Tests 11/29 0745 Chemistry Sodium (137 - 145 mmol/L) 140 Potassium (3.5 - 5.1 mmol/L) 5.5 H Chloride (98 - 107 mmol/L) 102 Carbon Dioxide (22 - 30 mmol/L) 29 Anion Gap (5 - 16) 8 BUN (9 - 20 mg/dL) 45 H Creatinine (0.7 - 1.2 mg/dL) 1.4 H Estimated GFR (>60 ml/min) 50 L BUN/Creatinine Ratio (7 - 25 %) 32.1 H Last 24 Hours of Joel Results: No recent cultures Assessment/Plan ID Impression: Stable, with temperatures and white blood cell count remaining normal, on Vancomycin, now 4 days status post right transmetatarsal amputation for osteomyelitis of the right foot, now 11 days status post 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 Podiatry has repeatedly expressed concern regarding his poor blood supply and has recommended a right BKA in the past, and this may still need to be considered if his wound does not heal. His Vancomycin dose was increased but his level of 14 (on the 1 g of Vancomycin daily) was adequate; therefore would resume his original dose of 1 gram daily. Suggestion: 1. Decrease Vancomycin to 1 g IV every 24 hours and complete a six-week course from his negative blood cultures (until December 31) 2. Weekly CBC, ESR, BUN/creatinine and Vancomycin trough level while on Vancomycin
--- NOTE | 2017-11-29 15:04 | Discharge Summary ---
Visit Information Visit Dates Admission Date: 11/17/17 Discharge Date: 11/30/2017 Hospital Course Course Attending Physician: Gilbert Suazo MD Primary Care Physician: Gilbert Suazo MD Hospital Course: Patient is a 72-year-old male with past medical history of end-stage renal disease status post renal transplant on tacrolimus and CellCept, paroxysmal atrial fibrillation on Eliquis, hypertension, hyperlipidemia, history of CVA( 2006), diabetes, osteomyelitis of right distal phalanx of the right great toe status post partial amputation on 09/09/2017(pathology was positive for osteomyelitis and blood culture was growing E. coli, Citrobacter and MRSA, with clean margin after surgery), recent discharge on 10/14/17 treated for sepsis with MRSA, status post angioplasty of peroneal artery and wound debridement on wound VAC, long-term antibiotic daptomycin until 10/25/17, complicated with neutropenia who presented to ED with chief complaint of low-grade fever, chills, nausea and dry heaves for 3 days. ED course - Vital signs at the time of [id number] 100.8, blood pressure 153/67, respiratory 18, pulse rate 86. Blood workup showed -WBC 7.7, hemoglobin 8.8, band cells 3, MCV 81, ESR 86, creatinine 1.8, calcium 7, C-reactive protein positive. Chest x-ray -no acute cardiopulmonary abnormality. foot x-ray( right) -Osteomyelitis, septic joint, of the second MTP joint involving the metatarsal head and the proximal phalanges of the second toe. He was given injection vancomycin and ceftriaxone in the ED. Right foot osteomyelitis/ gangrene-right second MTP joint and proximal phalangeal joint of second toe -transmetatarsal amputation of right foot(2017) We admitted the patient to general medicine floor and started on IV fluids. We did color Doppler of right lower extremity as it had swelling which did not show any evidence of DVT. Blood cultures, wound cultures, tacrolimus level were sent and obtained podiatry and ID consult. We kept him n.p.o. and off antibiotic for possible debridement. On 11/18/2017, open incision and drainage with exposure of extensor and flexor tendons and tendon sheath, open partial second toe dissection of right foot, excision and debridement done. He felt improvement in GI symptoms afterwards with minimal discomfort on right foot. On ID recommendation, we started patient on vancomycin 1 g IV every 24 hours(11/18/2017 ), and took vascular surgery evaluation. We will regularly monitor vancomycin trough level(12.8,10). Vascular surgery advised that patient does not need any acute intervention. Patient responded well to antibiotic, but after discussion it was planned to do right BKA. We obtain preop clearance from cnc supervisor/Dr. Lujan, who advised for pharmacological stress test/echocardiogram -which showed normal left ventricular size, moderate LVH, LVEF 60%, left atrial dilatation, mild MR, mild TR, RVSP 45, trace NJ. Persantine stress test showed normal stress and resting myocardial perfusion study with normal left ventricular wall motion and ejection fraction -53%. The cleared patient from cardiac standpoint for surgery. We stopped Eliquis and started patient on IV heparin. On 11/25/2017, transmetatarsal amputation of right foot, under ankle block anesthesia with excision and debridement was done. We took postop baseline ESR and x-ray, ESR was 60, foot x-ray showed postoperative changes of transmetatarsal amputation of second through fifth metatarsal. At the time of discharge We advised weekly CBC, ESR, BUN/creatinine and vancomycin trough level with total course of antibiotic of 6 week from his negative blood culture(12/31/2017). Chronic kidney disease status post renal transplant on MMF and tacrolimus extended release - We obtain nephrology consultation and follow the recommendation. We will regularly monitored tacrolimus level(14.5, 11.0, 7.0). Limited dietary potassium to 2 g per day and maintain hydration. We monitored blood counts regularly. Anemia of chronic disease -possible chronic kidney disease - Patient was having low hemoglobin in the range of 7.4. We started patient on injection Procrit 20,000 units subcutaneous every 2 weeks(11/23/2017). We checked iron panel(serum iron 31, TIBC 205, ferritin 936). Continue to supplement oral iron preparation. Type 2 diabetes mellitus, diabetic neuropathy, nephropathy We obtained endocrinologic consultation.We changed the doses according to the blood glucose level. Patient discharged on Levemir to 15 units twice a day and kept him on before meals and bedtime insulin doses.(Target - 140 -160) Depression/anxiety - We will obtain psychiatric consultation. We increases the dose of Lexapro to 30 mg daily. Advised to stop bupropion, as it decreases seizure threshold. Allergies: Coded Allergies: NO KNOWN ALLERGIES (NONE 09/09/17) Disposition Summary Disposition Principal Diagnosis: Right foot osteomyelitis/ gangrene-right second MTP joint and proximal phalangeal joint of second toe -transmetatarsal amputation of right foot(2017) Additional Diagnosis: Chronic kidney disease status post renal transplant on MMF and tacrolimus extended release Anemia of chronic disease -possible chronic kidney disease -on Procrit Type 2 diabetes mellitus, diabetic neuropathy, nephropathy Depression/anxiety Discharge Disposition: SNF Discharge Instructions General Discharge Information Code Status: Full Code Patient's Diet: Diabetic diet Patient's Activity: Non weight bearing on right leg Follow-Up Instructions/Appts: Please follow-up with your PCP within a week of discharge Advised to follow-up with Dr. Donaldson weekly Advised to follow-up with ID within a month of discharge Advised to take the medication as advised Advised to check CBC, ESR, BUN/creatinine and vancomycin trough every weekly. Patient will have antibiotic for total of 6 weeks course from his negative blood culture(12/31/2017) Medications at Discharge Discharge Medications: Stop taking the following medications: Insulin Glargine,Hum.rec.anlog (Lantus Solostar) 100 UNIT/ML (3 ML) INSULN.PEN Inject into fatty tissue DAILY BEFORE BREAKFAST Qty = 30 Continue taking these medications: Alprazolam (Alprazolam) 0.5 MG TABLET 1 Tablet ORAL DAILY as needed for Anxiety Qty = 30 Comments: Last Taken: 10/13/17 Time: 1:30 PM Hydroxychloroquine Sulfate (Hydroxychloroquine Sulfate) 200 MG TABLET 1 Tablet ORAL DAILY Qty = 30 Comments: LAST TAKEN: 10/14/17 8:00 AM Insulin Lispro (Humalog) 100 UNIT/ML CARTRIDGE 0 Inject into fatty tissue BEFORE MEALS AND AT BEDTIME Instructions: Please take as follow:\ Blood sugar 80-150 mg/dl: none 151-200 mg/dl: 2 U 201-250 mg/dl: 4 U 251-300 mg/dl: 6 U 301-350 mg/dl: 8 U 351-400 mg/dl: 10 U more than 401 mg/dl: 12 U and call Vit A,C & E/Lutein/Minerals (Ocuvite With Lutein Tablet) 1,000-60-2 TABLET 1 Tablet ORAL DAILY Qty = 30 Comments: NOT TAKEN IN HOSPITAL Atorvastatin Calcium (Atorvastatin Calcium) 10 MG TABLET 1 Tablet ORAL DAILY Qty = 30 Comments: NOT GIVEN IN HOSPITAL Fludrocortisone Acetate (Fludrocortisone Acetate) 0.1 MG TABLET 1 Tablet ORAL DAILY Qty = 30 Comments: NOT GIVEN IN HOSPITAL Metoprolol Succ XL (Toprol XL) 25 MG TAB 0.5 Tablet ORAL DAILY Qty = 30 Comments: LAST TAKEN: 10/14/17 8:00 AM Calcitriol (Calcitriol) 0.25 MCG CAPSULE Capsule ORAL DAILY Qty = 30 Comments: NOT GIVEN IN HOSPITAL Amiodarone (Cordarone) 200 MG TAB 0.5 Tablet ORAL DAILY Qty = 30 Comments: Last Taken: 10/14/17 Time: 8:00 AM Bupropion HCl (Bupropion HCl) 100 MG TABLET 1 Tablet ORAL DAILY Qty = 30 Comments: NOT GIVEN IN HOSPITAL Escitalopram Oxalate (Lexapro) 20 MG TABLET 1 Tablet ORAL Every night Qty = 30 Comments: Last Taken: 10/14/17 Time: 8:00 AM Apixaban (Eliquis) 5 MG TABLET 1 Tablet ORAL TWICE DAILY Qty = 60 Comments: Last Taken: 10/14/17 Time: 8:00 AM Coenzyme Q10 (Coenzyme Q10) 100 MG CAPSULE 1 Capsule ORAL DAILY Qty = 30 Comments: NOT TAKEN IN HOSPITAL Calcium (Elemental-Fr Calcarb) (Calcium Antacid) 400 MG CALCIUM (1,000 MG) TAB.CHEW 1,000 Milligram ORAL THREE TIMES DAILY Qty = 90 Comments: GIVEN 500MG 10/14/17 8:00 AM Cholecalciferol (Vitamin D3) (Vitamin D-3) 2,000 UNIT TABLET 1 Tablet ORAL DAILY Qty = 30 Comments: NOT GIVEN IN HOSPITAL Mycophenolate Mofetil (Cellcept) 500 MG TABLET 1 Tablet ORAL TWICE DAILY Qty = 60 Comments: Last Taken: 10/14/17 Time: 1:30 PM Omeprazole (Omeprazole) 20 MG CAPSULE.DR 1 Tablet ORAL DAILY Qty = 30 Comments: Last Taken: 10/14/17 Time: 6:00 AM Start taking the following new medications: Oxycodone HCl (Oxycodone HCl) 5 MG TABLET 5 Milligram ORAL EVERY 6 HOURS NEEDED as needed for PAIN Qty = 15 No Refills Insulin Detemir (Levemir) 100 UNIT/ML VIAL 15 Units Inject into fatty tissue TWICE DAILY Qty = 30 No Refills Tacrolimus (Envarsus XR) 1 MG TAB.ER.24H 5 Milligram ORAL 1000 Qty = 30 No Refills Vancomycin HCl (Vancomycin HCl) 1 GRAM VIAL 1,250 Milligram INTRAVEN DAILY Qty = 30 No Refills Instructions: Take a trough level after fourth dose, dose 4 December 02. Magnesium Oxide (Magnesium Oxide) 400 MG TABLET 1 Tablet ORAL DAILY Qty = 30 No Refills Sennosides (Senna) 8.6 MG TABLET 2 Tablet ORAL DAILY Qty = 14 No Refills Copies To: Hardik RIVAS,Rey; Jamshid RANKIN,Jace Mcconnell; Lydia RANKIN,Tomas Doe Attending MD Review Statement Documenting Attending: Lakeisha RANKIN,Gilbert Mark Other Findings: ADDENDUM FOR REHAB ADDENDUm This is a gentleman with s/p renal transplant with infected toe with osteo s/p surg WITH TMA AMPUTATION * ON rx for - MRSA sepsis- in a pt who is immunosupp S/PTMA Needs abx vanco till december 31 total 6 weeks * S/p renal transplant on tacrolimus XR 5mg total and mycophenolate 500 mg bid ( 1000 total) * Has Afib and on eloquis, on anticoag, and statin * PT with Pafib in Sinus and sig atheromatous aorta, small pfo, - on eloquis ( MRI showing very small punctate lesions prob ateromatous small emboli) * CKD s/p renal transplant, creat now up to 1.5 * DM insulin requiring see insulin regimen * PVD, previous history of stoke, s/p angioplasty and TMA * Previous secondary hyperparathyroid. Sig autonomic dysfunction was on fludocortisone * Pafib on eliquis (in sinus on amiodarone) * Depression and anxiety on celexa and welbutrin * Peripheral neuropathy REC FOR REHAB Please see med list Please do blood work every tuesday with BMP, CBC, ESR and tacrolimus troughlevel (this blood work should be drawn just before he takes his extended release tacrolimus pill ), Vanco trough level and call the result into [facility] [phone] and fax to Dr. Suazo's office at [phone] and to Dr Eben Arguelles [phone] Vanco to cont till lorena 30th PT needs follow up appt with podiatry Dr Mendiola in [facility] and first appt should be 12/01 or 12/02, Dr Suazo PCP and Dr Arguelles in next few weeks
--- NOTE | 2017-11-29 15:09 | PN- Nephrology ---
Assessment/Plan Nephrology Assessment: 1. CKD stage III status post DDKT 2014; renal function stable and near baseline 2. Status post TMA (11/25) for osteomyelitis right foot with MRSA bacteremia -on vancomycin 3. Anemia - on an THEO (Procrit) 4. Tendency towards mild hyperkalemia 5. Diabetes mellitus 6. History of atrial fibrillation 7. Status post CVA in 2006 Suggestion: 1. Continue current immunosuppressive regimen 2. Please recheck calcium, phosphorus, magnesium and albumin levels 3. Antibiotic therapy per ID Subjective Subjective: Feeling a bit more optimistic about the possibility of saving his leg. No significant complaints at this time. Vital signs stable, afebrile with normal WBC. He remains quite anemic, on Procrit. Transference saturation was low at 15% but ferritin was quite high (936) precluding the use of parenteral iron. Objective Vital Signs and I&Os Vital Signs Date Time Temp Pulse Resp B/P B/P Pulse O2 O2 Flow FiO2 Mean Ox Delivery Rate 11/29 0843 97.8 64 18 116/60 11/29 0841 97.8 64 18 116/60 11/29 0712 97.8 64 18 116/60 97 Room Air 11/28 2200 97.8 62 20 110/60 96 Intake & Output 11/29 1600 11/29 0400 11/28 1600 11/28 0400 11/27 1600 11/27 0400 Intake Total 465 480 720 360 420 240 Output Total 1250 1200 2430 2275 800 Balance -785 -720 -1710 360 -1855 -560 Intake, Oral 465 480 720 360 420 240 Number 0 1 0 Bowel Movements Output, Urine 1250 1200 2430 2275 800 Patient 185 lb 184 lb 187 lb Weight Weight Bed scale Bed scale Measurement Method Physical Exam: General: Well-developed white male in NAD Skin: No rash or jaundice; multiple senile keratoses; no petechiae or splinter hemorrhages HEENT: Conjunctivae pale, sclerae anicteric, mucous membranes moist Neck: Without masses or thyromegaly, no supraclavicular or cervical adenopathy Chest: Clear to P&A Heart: Regular rate and rhythm without S3 or rub Abdomen: Soft and nontender without palpable masses or organomegaly Extremities: Without cyanosis or edema; right foot dressing intact Neuro: Awake, alert and oriented, no focal findings, no asterixis or myoclonus Results Pertinent Lab Results: Laboratory Tests 11/29 11/28 11/27 0745 0600 2200 Chemistry Sodium (137 - 145 mmol/L) 140 140 Potassium (3.5 - 5.1 mmol/L) 5.5 H 5.5 H Chloride (98 - 107 mmol/L) 102 102 Carbon Dioxide (22 - 30 mmol/L) 29 28 Anion Gap (5 - 16) 8 10 BUN (9 - 20 mg/dL) 45 H 44 H Creatinine (0.7 - 1.2 mg/dL) 1.4 H 1.3 H Estimated GFR (>60 ml/min) 50 L 54 L BUN/Creatinine Ratio (7 - 25 %) 32.1 H 33.8 H Hematology CBC w Diff MAN DIFF ORDERED WBC (4.8 - 10.8 /CUMM) 5.6 RBC (4.70 - 6.10 /CUMM) 2.88 L Hgb (14.0 - 18.0 G/DL) 7.8 L Hct (42 - 52 %) 23.5 L MCV (80.0 - 94.0 FL) 81.5 MCH (27.0 - 31.0 PG) 27.0 MCHC (33.0 - 37.0 G/DL) 33.1 RDW (11.5 - 14.5 %) 18.0 H Plt Count (130 - 400 /CUMM) 316 MPV (7.4 - 10.4 FL) 7.9 Gran % (42.2 - 75.2 %) 72.5 Lymphocytes % (20.5 - 51.1 %) 14.0 L Monocytes % (1.7 - 9.3 %) 8.5 Eosinophils % (0 - 5 %) 4.4 Basophils % (0.0 - 2.0 %) 0.6 Absolute Granulocytes (1.4 - 6.5 /CUMM) 4.1 Absolute Lymphocytes (1.2 - 3.4 /CUMM) 0.8 L Absolute Monocytes (0.10 - 0.60 /CUMM) 0.5 Absolute Eosinophils (0.0 - 0.7 /CUMM) 0.2 Absolute Basophils (0.0 - 0.2 /CUMM) 0 Platelet Estimate (ADEQUATE) ADEQUATE Polychromasia 1+ Hypochromic-Microcytic 2+ Poikilocytosis 2+ Anisocytosis 2+ Toxicology Vancomycin Trough (10.0 - 20.0 ug/mL) 10.8 11/27 11/27 11/27 1030 0930 0130 Chemistry Sodium (137 - 145 mmol/L) 136 L Potassium (3.5 - 5.1 mmol/L) 5.6 H Chloride (98 - 107 mmol/L) 101 Carbon Dioxide (22 - 30 mmol/L) 27 Anion Gap (5 - 16) 8 BUN (9 - 20 mg/dL) 39 H Creatinine (0.7 - 1.2 mg/dL) 1.2 Estimated GFR (>60 ml/min) 60 BUN/Creatinine Ratio (7 - 25 %) 32.5 H Coagulation APTT (25 - 37 SEC) Cancelled 41 H Hematology CBC w Diff NO MAN DIFF REQ WBC (4.8 - 10.8 /CUMM) 7.0 RBC (4.70 - 6.10 /CUMM) 2.81 L Hgb (14.0 - 18.0 G/DL) 7.5 L Hct (42 - 52 %) 23.0 L MCV (80.0 - 94.0 FL) 81.7 MCH (27.0 - 31.0 PG) 26.6 L MCHC (33.0 - 37.0 G/DL) 32.5 L RDW (11.5 - 14.5 %) 17.7 H Plt Count (130 - 400 /CUMM) 330 MPV (7.4 - 10.4 FL) 7.8 Gran % (42.2 - 75.2 %) 77.6 H Lymphocytes % (20.5 - 51.1 %) 10.4 L Monocytes % (1.7 - 9.3 %) 8.2 Eosinophils % (0 - 5 %) 3.1 Basophils % (0.0 - 2.0 %) 0.7 Absolute Granulocytes (1.4 - 6.5 /CUMM) 5.4 Absolute Lymphocytes (1.2 - 3.4 /CUMM) 0.7 L Absolute Monocytes (0.10 - 0.60 /CUMM) 0.6 Absolute Eosinophils (0.0 - 0.7 /CUMM) 0.2 Absolute Basophils (0.0 - 0.2 /CUMM) 0 11/260 Toxicology Vancomycin Trough Cancelled
[2017-11-29 15:17] VITALS: BP 110/58
--- NOTE | 2017-11-29 16:20 | Cons- Psychiatry ---
Psychiatric Consult Date of Consult: 11/29/17 Reason for Consult: depression and anxiety in the context of MMP Allergies: Coded Allergies: NO KNOWN ALLERGIES (NONE 09/09/17) Past History Past Medical History Neurological: 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 EENT: cataracts, hearing loss, macular degeneration Cardiovascular: AFIB, hypertension, hyperlipidemia, AFIB (ON COUMADIN) postural hypotension Respiratory: NONE Gastrointestinal: GERD Hepatic: hepatitis in the past Renal: renal transplant, patient was on hemodialysis from 2003 until 2014 when he underwent a successful donor transplant Musculoskeletal: fracture, R ARM FRACTURE vitamin D deficiency Psychiatric: NONE Endocrine: diabetes type 2 Blood Disorders: NONE Cancer(s): NONE EMBALMER/FUNERAL DIRECTOR/Reproductive: NONE Past Surgical History Surgical History: cataract removal, RENAL TRANSPLANT right and left toe amputations secondary to IDDM aVF left middle toe amputation right great toe amputation ruptured appendix with peritonitis Assessment/Plan Impression: Pt is 72 y/o M with a PMH of ESRD s/p renal transplant on immunosupression, pAFIB, HTN, HLD, CVA, DM, osteomyelitis of the right distal phalanx of the right great toe s/p partial amputation 09/09/17 with positive pathology for osteomyelitis who presented to ED with F, C, N. Found to have osteo and cellulitis in house. ED Course: Laboratory Tests 11/17/17 2244: Anion Gap 15, Estimated GFR 37 L, BUN/Creatinine Ratio 26.1 H, Glucose 221 H, Lactic Acid 1.0, Calcium 7.0 L, Total Bilirubin 0.4, AST 21, ALT 22, Alkaline Phosphatase 101, Troponin I 0.04, C-Reactive Prot, Quant > 9.0 H, C-React Prot High Sens > 15.0 H, Total Protein 5.8 L, Albumin 3.3 L, Globulin 2.5, Albumin /Globulin Ratio 1.3, Lipase < 10 L, CBC w Diff MAN DIFF ORDERED, RBC 3.26 L, MCV 81.9, MCH 26.9 L, MCHC 32.8 L, RDW 17.1 H, MPV 7.3 L, Gran % 81.1 H, Lymphocytes % 4.4 L, Monocytes % 14.1 H, Eosinophils % 0.1, Basophils % 0.3, Absolute Granulocytes 6.2, Segmented Neutrophils 81 H, Band Neutrophils 3, Absolute Lymphocytes 0.3 L, Lymphocytes 1 L, Monocytes 15 H, Absolute Monocytes 1.1 H, Absolute Eosinophils 0, Absolute Basophils 0, Platelet Estimate ADEQUATE, Hypochromic-Microcytic 1+, Anisocytosis 1+, Microcytic Cells 1+, ESR Westergren 86 H Imaging at admission:. Chest x-ray: No acute finding Foot x-ray: Osteomyelitis, septic joint, of the second MTP joint involving the metatarsal head and the proximal phalanges of the second toe. PPHx: No inpatient, no substance. No suicide attempts. Sees Radha Mcfarlane at [facility]. NO KNOWN ALLERGIES (NONE 09/09/17) Home Med list Alprazolam 0.5 MG TABLET 1 TAB PO DAILY PRN Anxiety (Reported) Amiodarone (Cordarone) 200 MG TAB 0.5 TAB PO DAILY A.fib (Reported) Apixaban (Eliquis) 5 MG TABLET 1 TAB PO BID Blood Thinner (Reported) Atorvastatin Calcium 10 MG TABLET 1 TAB PO DAILY cholesterol (Reported) Bupropion HCl 100 MG TABLET 1 TAB PO DAILY pain (Reported) Calcitriol 0.25 MCG CAPSULE Bone health (Reported) Calcium (Elemental-Fr Calcarb) (Calcium Antacid) 400 MG CALCIUM (1,000 MG) TAB.CHEW 1,000 MG PO TID Supplement (Reported) Cholecalciferol (Vitamin D3) (Vitamin D-3) 2,000 UNIT TABLET 1 TAB PO DAILY Supplement (Reported) Coenzyme Q10 100 MG CAPSULE 1 CAP PO DAILY Supplement (Reported) Escitalopram Oxalate (Lexapro) 20 MG TABLET 1 TAB PO QPM Anxiety (Reported) Fludrocortisone Acetate 0.1 MG TABLET 1 TAB PO DAILY SUPPLEMENT (Reported) Hydroxychloroquine Sulfate 200 MG TABLET 1 TAB PO DAILY . (Reported) Insulin Glargine,Hum.rec.anlog (Lantus Solostar) 100 UNIT/ML (3 ML) INSULN.PEN 30 UNIT SC DAILY AC Blood sugar (Reported) 26 U daily Insulin Lispro (Humalog) 100 UNIT/ML CARTRIDGE 0 SC TIDAC/HS Blood sugar ( Reported) Please take as follow:\ Blood sugar 80-150 mg/dl: none 151-200 mg/dl: 2 U 201-250 mg/dl: 4 U 251-300 mg/dl: 6 U 301-350 mg/dl: 8 U 351-400 mg/dl: 10 U more than 401 mg/dl: 12 U and call MD Metoprolol Succ XL (Toprol XL) 25 MG TAB 0.5 TAB PO DAILY HEART HEALTH ( Reported) Mycophenolate Mofetil (Cellcept) 500 MG TABLET 1 TAB PO BID KIDNEY TRANSPLANT Omeprazole 20 MG CAPSULE. 1 TAB PO DAILY GI Tacrolimus (Envarsus XR) 4 MG TAB.ER.24H 5 MG PO DAILY 1000 Transplant Vit A,C & E/Lutein/Minerals (Ocuvite With Lutein Tablet) 1,000-60-2 TABLET 1 TAB PO DAILY Supplement (Reported) A/ 72 y/o M with current osteo and h/o renal transplant with mood exacerbation in the context of possible BKA. Plan/ -Check QTc, replete mag (if neph feels this is appropriate given his kidney function) This will reduce his risk for Torsades as he has a history of prolonged QTc and SSRIs can also prolong it -After checking QTc, increase lexapro to 30 mg qDaily. There is an interaction between tacrolimus and lexapro which are both 3A4 substrates but he has tolerated so far. Moreover, there is no dose adjustment for lexapro for mild to moderate kidney impairment -I would stop buproprion as both this and tacrolimus can decrease seizure threshold but this is at your discretion and that of outpatient psych. Buproprion has to be monitored in the setting of kidney impairment and I would not be titrate up in his case. -F/u with Radha Mcfarlane in outpatient psych [phone] Call with any questions. [id number] #[id number]
[2017-11-29 22:51] VITALS: BP 160/66
[2017-11-30 06:33] VITALS: BP 146/58
--- NOTE | 2017-11-30 07:14 | PN- Housestaff ---
Subjective Follow-up For: Osteomyelitis of right second MTP status post metatarsal amputation Subjective: FSG 207, 77. Patient reports depressed mood. No acute events overnight Review of Systems Constitutional: Reports: see HPI. Objective Last 24 Hrs of Vital Signs/I&O Vital Signs Date Time Temp Pulse Resp B/P B/P Pulse O2 O2 Flow FiO2 Mean Ox Delivery Rate 11/30 0633 97.7 56 18 146/58 97 Room Air 11/30 0000 Room Air 11/29 2251 98.2 62 18 160/66 95 Room Air 11/29 1517 98.3 61 20 110/58 94 11/29 0843 97.8 64 18 116/60 11/29 0841 97.8 64 18 116/60 Intake & Output 11/30 1600 11/30 0800 11/30 0000 Intake Total 240 Output Total 725 1550 Balance -725 -1310 Intake, Oral 240 Output, Urine 725 1550 Patient 187 lb Weight Physical Exam General Appearance: Alert, Oriented X3, Cooperative, No Acute Distress Cardiovascular: Regular Rate, Normal S1, Normal S2 Lungs: Clear to Auscultation, Normal Air Movement Abdomen: Normal Bowel Sounds, Soft, No Tenderness Extremities: R foot dressing intact Current Medications: Current Medications Sig/Ira Start time Last Medication Dose Route Stop Time Status Admin Alprazolam 0.5 MG DAILY NEEDED PRN 11/25 2144 AC 11/29 PO 12/02 Amiodarone HCl 100 MG DAILY 11/18 09 AC 11/29 PO 0843 Apixaban 5 MG BID 11/27 0900 AC 11/29 PO 2118 Atorvastatin Calcium 10 MG DAILY 11/18 09 AC 11/29 PO 0843 Calcitriol 0.25 MCG DAILY 11/19 1159 AC 11/29 PO 0843 Calcium Carbonate 500 MG TID 11/19 1400 AC 11/29 PO 2118 Cholecalciferol 2,000 IU DAILY 11/19 1200 AC 11/29 PO 0844 Docusate Sodium 100 MG DAILY 11/24 1323 AC 11/29 PO 0843 Epoetin Onofre 20,000 U EVERY 2 WEEKS 11/23 1700 AC 11/23 SC 1720 Escitalopram Oxalate 20 MG DAILY 11/20 0900 AC 11/29 PO 0843 Insulin Aspart 0 TIDAC/HS 11/27 1200 AC 11/29 SC 211 Insulin Detemir 15 UNITS BID 11/30 0900 UNVr SC Insulin Detemir 16 UNITS BID 11/27 2100 DC 11/29 SC 2118 Magnesium Sulfate 1 GM ONCE ONE 11/29 1745 DC 11/29 Dextrose/Water 100 ML IV 11/29 2144 1830 Melatonin 5 MG AT BEDTIME PRN 11/23 2215 AC 11/23 PO 221 Metoprolol Succinate 12.5 MG DAILY 11/18 0900 AC 11/29 PO 0841 Mycophenolate Mofetil 1,000 MG BID 11/18 0900 AC 11/29 PO 211 Omeprazole 20 MG DAILY AC 11/18 0700 AC 11/30 PO 0629 Oxycodone HCl 5 MG Q6-PRN PRN 11/26 0915 AC 11/29 PO 214 Polyethylene Glycol 17 GM DAILY 11/24 1323 AC 11/29 PO 0845 Ramelteon 8 MG AT BEDTIME 11/19 2100 AC 11/29 PO 211 Tacrolimus 5 MG 1000 11/23 1000 AC 11/29 PO 1039 Vancomycin HCl 1,250 MG DAILY 11/30 09 AC Sodium Chloride 250 ML IV Vancomycin HCl 250 MG ONCE ONE 11/29 1500 DC 11/29 Sodium Chloride 100 ML IV 11/29 1529 1549 Vancomycin HCl 1,000 MG Q12 11/29 09 DC 11/29 Sodium Chloride 250 ML IV 1038 Last 24 Hrs of Lab/Joel Results Last 24 Hrs of Labs/Mics: Laboratory Tests 11/30/17 0630: CBC w Diff Pending, WBC Pending, RBC Pending, Hgb Pending, Hct Pending, MCV Pending, MCH Pending, MCHC Pending, RDW Pending, Plt Count Pending, MPV Pending Assessment/Plan Assessment: Mr. Edouard is a 71-year-old male presented to ED with fever, chills and nausea with past medical history of significant for ESRD status post renal transplant on tacrolimus and CellCept, paroxysmal atrial fibrillation on Eliquis, HTN, HLD, CVA, DM, osteomyelitis of the right distal phalanx of the right great toe status post partial amputation 09/09/17 with positive pathology for osteomyelitis, blood and OR culture growing Escherichia coli, Citrobacter and MRSA, wound had clean margins Problem list: #Osteomyelitis of right second MTP status post debridement #SHIRA and CKD #Anemia #Mild hyperkalemia Plan: * Postop R foot XR showed postoperative changes of transmetatarsal amputation * We will continue to monitor potassium * Hemoglobing stable without requiring transfusion * continue vancomycin 1250 mg daily * We will obtain Vanc trough 12/03/17 before scheduled 5th dose * Continue tacrolimus and CellCept * Kago-Rzdb-vhwtznp scale, Levemir, NovoLog insulin as per Endo * Continue amiodarone, metoprolol for PAF * Continue Apixaban * Echo showed Moderate concentric left ventricular hypertrophy with an EF of 55- 60 %. No obvious regional wall motion abnormalities. * Appreciate psych Endo, podiatry, ID, vascular surgery, nephrology, cardio recommendations Code-full code Diet-diabetic diet, potassium and sodium restriction Problem List: 1. Osteomyelitis Pain Ratin Pain Location: NA Pain Goal: Remain pain free Pain Plan: NA Tomorrow's Labs & Rationales: BEP
--- NOTE | 2017-11-30 07:46 | PN- Diabetes ---
Assessment/Plan Diabetes Assessment: The patient is very upset about his diet. He is given very little food. He is on both a diabetic diet and a potassium restriction. He is losing weight. Patient's fingerstick blood sugars yesterday were 171 before breakfast, 268 before lunch, 282 before dinner, and 207 at bedtime. His fingerstick blood sugar this morning is only 77. Plan: Suggest to reduce Levemir to 15 units twice a day. Continue present sliding scale NovoLog before meals with a separate sliding scale at bedtime. The dietitian needs to see this patient and reevaluate his diet. Subjective Subjective: Upset over his diet and how little fluid he is getting Review of Systems Constitutional: Denies: chills, fever. Cardiovascular: Denies: chest pain. Gastrointestinal: Denies: abdominal pain. Genitourinary: Denies: dysuria. Objective Last 24 Hrs of Vital Signs/I&O Vital Signs Date Time Temp Pulse Resp B/P B/P Pulse O2 O2 Flow FiO2 Mean Ox Delivery Rate 11/30 0533 97.7 56 18 146/58 97 Room Air 11/30 0000 Room Air 11/29 2251 98.2 62 18 160/66 95 Room Air 11/29 1517 98.3 61 20 110/58 94 11/29 0843 97.8 64 18 116/60 11/29 0841 97.8 64 18 116/60 Intake & Output 11/30 0800 11/30 0000 11/29 1600 Intake Total 240 1320 Output Total 725 1550 700 Balance -725 -1310 620 Intake, IV 500 Intake, Oral 240 820 Output, Urine 725 1550 700 Patient 187 lb Weight Vital Signs Date Time Temp Pulse Resp B/P B/P Pulse O2 O2 Flow FiO2 Mean Ox Delivery Rate 11/30 0533 97.7 56 18 146/58 97 Room Air 11/30 0000 Room Air 11/29 2251 98.2 62 18 160/66 95 Room Air 11/29 1517 98.3 61 20 110/58 94 11/29 0843 97.8 64 18 116/60 11/29 0841 97.8 64 18 116/60 Intake & Output 30 0800 11/30 0000 11/29 1600 Intake Total 240 1320 Output Total 725 1550 700 Balance -725 -1310 620 Intake, IV 500 Intake, Oral 240 820 Output, Urine 725 1550 700 Patient 187 lb Weight Physical Exam General Appearance: alert, awake, comfortable Head: normal appearance Neck: normal inspection Respiratory: normal breath sounds Cardiovascular: regular rate/rhythm Abdomen: normal bowel sounds Extremities: right foot bandaged Current Medications: Current Medications Sig/Ira Start time Last Medication Dose Route Stop Time Status Admin Alprazolam 0.5 MG DAILY NEEDED PRN 11/25 2144 AC 11/29 PO 12/02 Amiodarone HCl 100 MG DAILY 11/18 899 11/29 PO 0843 Apixaban 5 MG BID 11/27 09 11/29 PO 2119 Atorvastatin Calcium 10 MG DAILY 11/18 09 11/29 PO 0843 Calcitriol 0.25 MCG DAILY 11/19 1159 AC 11/29 PO 0843 Calcium Carbonate 500 MG TID 11/19 1400 11/29 PO 211 Cholecalciferol 2,000 IU DAILY 11/19 1200 11/29 PO 0844 Docusate Sodium 100 MG DAILY 11/24 1323 11/29 PO 0843 Epoetin Onofre 20,000 U EVERY 2 WEEKS 11/23 1700 11/23 WA 1720 Escitalopram Oxalate 20 MG DAILY 11/20 09 11/29 PO 0843 Insulin Aspart 0 TIDAC/HS 11/27 1200 11/29 SC 211 Insulin Detemir 16 UNITS BID 11/27 2100 11/29 SC 211 Magnesium Sulfate 1 GM ONCE ONE 11/29 1745 DC 11/29 Dextrose/Water 100 ML IV 11/30 2143 1830 Melatonin 5 MG AT BEDTIME PRN 11/23 2214 11/23 PO 2210 Metoprolol Succinate 12.5 MG DAILY 11/18 09 11/29 PO 0841 Mycophenolate Mofetil 1,000 MG BID 11/18 09 11/29 PO 211 Omeprazole 20 MG DAILY AC 11/18 0700 11/30 PO 0629 Oxycodone HCl 5 MG Q6-PRN PRN 11/26 0915 11/29 PO 2148 Polyethylene Glycol 17 GM DAILY 11/24 1323 11/29 PO 0845 Ramelteon 8 MG AT BEDTIME 11/19 2100 AC 11/29 PO 211 Tacrolimus 5 MG 1000 11/23 1000 AC 11/29 PO 1039 Vancomycin HCl 1,250 MG DAILY 11/30 0900 AC Sodium Chloride 250 ML IV Vancomycin HCl 1,250 MG DAILY 11/29 2300 CAN Sodium Chloride 250 ML IV Vancomycin HCl 250 MG ONCE ONE 11/29 1500 DC 11/29 Sodium Chloride 100 ML IV 11/29 1529 1549 Vancomycin HCl 1,000 MG Q12 11/29 0900 DC 11/29 Sodium Chloride 250 ML IV 1038 Vancomycin HCl 1,000 MG 2300 11/18 2300 DC 11/28 Sodium Chloride 250 ML IV 2225 Findings Pertinent Lab/Joel Results: Laboratory Tests 11/30 11/29 0630 0745 Chemistry Sodium (137 - 145 mmol/L) 140 Potassium (3.5 - 5.1 mmol/L) 5.5 H Chloride (98 - 107 mmol/L) 102 Carbon Dioxide (22 - 30 mmol/L) 29 Anion Gap (5 - 16) 8 BUN (9 - 20 mg/dL) 45 H Creatinine (0.7 - 1.2 mg/dL) 1.4 H Estimated GFR (>60 ml/min) 50 L BUN/Creatinine Ratio (7 - 25 %) 32.1 H Calcium (8.4 - 10.2 mg/dL) 8.1 L Phosphorus (2.5 - 4.5 mg/dL) 5.3 H Magnesium (1.6 - 2.3 mg/dL) 1.6 Albumin (3.5 - 5.0 g/dL) 2.8 L Hematology CBC w Diff Pending WBC Pending RBC Pending Hgb Pending Hct Pending MCV Pending MCH Pending MCHC Pending RDW Pending Plt Count Pending MPV Pending
[2017-11-30 09:14] LABS: ABSOLUTE BASOPHIL COUNT 0 /CUMM (0.0-0.2); ABSOLUTE EOSINOPHIL COUNT 0.2 /CUMM (0.0-0.7); ABSOLUTE GRANULOCYTE CT 4.2 /CUMM (1.4-6.5); ABSOLUTE LYMPH COUNT 0.8 /CUMM (1.2-3.4); ABSOLUTE MONOCYTE COUNT 0.4 /CUMM (0.10-0.60); BASOPHIL % 0.7 % (0.0-2.0); EOSINOPHIL % 3.4 % (0-5); GRANULOCYTE % 74.2 % (42.2-75.2); MEAN CORPUSCULAR HGB 26.2 PG (27.0-31.0); MEAN CORPUSCULAR HGB CONC 31.6 G/DL (33.0-37.0); MEAN CORPUSCULAR VOLUME 82.7 FL (80.0-94.0); MEAN PLATELET VOLUME 7.4 FL (7.4-10.4); PLATELET COUNT 377 /CUMM (130-400); RBC DISTRIBUTION WIDTH 18.9 % (11.5-14.5); WHITE BLOOD CELL COUNT 5.7 /CUMM (4.8-10.8)
[2017-11-30] MEDS ORDERED: VANCOMYCIN HCL1 G1 IV (13:18)
[2017-11-30] MEDS ORDERED: PROCRIT20000 UNIT SC (13:18)
[2017-11-30] MEDS ORDERED: OXYCODONE HCL5 M1 PO (13:26)
--- NOTE | 2017-11-30 13:28 | Patient Discharge Instructions ---
Discharge Instructions General Discharge Information You were seen/treated for: R foot osteomyelitis You had these procedures: Metatarsal amputation Special Instructions: Follow up with Dr. Dye-Podiatry within 1 week of discharge Follow up with the Bdc Manager-Dr. Breen within 1 week of discharge Have your trough Vancomycin dose checked after 4th dose scheduled for December 02 Diet Recommended Diet: Diabetic, LOW CARB, LOW POTASSIUM Activity Other activity limits: As tolerated Acute Coronary Syndrome Inclusion Criteria At DC or during hospital stay patient has or had the following: ACS DIAGNOSIS No Discharge Core Measures Meds if any: Prescribed or Continued at Discharge Meds if any: NOT Prescribed or Continued at Discharge Congestive Heart Failure Inclusion Criteria At DC or during hospital stay patient has or had the following: CHF DIAGNOSIS No Discharge Core Measures Meds if any: Prescribed or Continued at Discharge Meds if any: NOT Prescribed or Continued at Discharge Cerebrovascular accident Inclusion Criteria At DC or during hospital stay patient has or had the following: CVA/TIA Diagnosis No Discharge Core Measures Meds if any: Prescribed or Continued at Discharge Meds if any: NOT Prescribed or Continued at Discharge Venous thromboembolism Inclusion Criteria VTE Diagnosis No VTE Type NONE VTE Confirmed by (Test) NONE Discharge Core Measures - Per Current guidelines, there needs to be overlap - treatment for the first 5 days of Warfarin therapy. - If discharged on Warfarin prior to 5 days of - overlap therapy, the patient will need to be - assessed for post discharge needs including - *Post discharge parental anticoagulation - *Warfarin and/or parental anticoagulation education - *Follow up date to check INR post discharge At least 5 days overlap therapy as Inpatient No Meds if any: Prescribed or Continued at Discharge Note: Overlap Therapy is Warfarin and Anticoagulant Meds if any: NOT Prescribed or Continued at Discharge
[2017-11-30] MEDS ORDERED: MAGNESIUM OXID400 M1 PO (13:59)
[2017-11-30] MEDS ORDERED: SENNA8.6 M3 PO (14:04)
[2017-11-30] MEDS ORDERED: LEVEMIR100 UNIT/1 SC (14:04)
[2017-11-30] MEDS ORDERED: ENVARSUS XR1 MG PO (14:06)
--- NOTE | 2017-11-30 14:31 | PN- Infect Dx ---
Subjective Subjective: Afebrile without complaints Objective Last 24 Hrs of Vital Signs/I&O Vital Signs Date Time Temp Pulse Resp B/P B/P Pulse O2 O2 Flow FiO2 Mean Ox Delivery Rate 12/01 927 97.7 56 18 146/58 11/30 0923 97.7 56 18 146/58 11/30 0633 97.7 56 18 146/58 97 Room Air 11/30 0000 Room Air 11/29 2251 98.2 62 18 160/66 95 Room Air 11/29 1517 98.3 61 20 110/58 94 Intake & Output 11/30 1600 11/30 0800 11/30 0000 Intake Total 240 Output Total 1325 1550 Balance -1325 -1310 Intake, Oral 240 Number 0 Bowel Movements Output, Urine 1325 1550 Patient 187 lb Weight Weight Bed scale Measurement Method Physical Exam Other Physical Findings: He appears comfortable in no acute distress Chest Pro-Line in the right upper chest with no inflammation at the site Extremities right foot dressing intact Results Last 24 Hours of Lab Results: Laboratory Tests 11/30 629 Chemistry Sodium (137 - 145 mmol/L) 142 Potassium (3.5 - 5.1 mmol/L) 5.4 H Chloride (98 - 107 mmol/L) 103 Carbon Dioxide (22 - 30 mmol/L) 29 Anion Gap (5 - 16) 10 BUN (9 - 20 mg/dL) 42 H Creatinine (0.7 - 1.2 mg/dL) 1.3 H Estimated GFR (>60 ml/min) 54 L BUN/Creatinine Ratio (7 - 25 %) 32.3 H Hematology CBC w Diff MAN DIFF ORDERED WBC (4.8 - 10.8 /CUMM) 5.7 RBC (4.70 - 6.10 /CUMM) 2.90 L Hgb (14.0 - 18.0 G/DL) 7.6 L Hct (42 - 52 %) 24.0 L MCV (80.0 - 94.0 FL) 82.7 MCH (27.0 - 31.0 PG) 26.2 L MCHC (33.0 - 37.0 G/DL) 31.6 L RDW (11.5 - 14.5 %) 18.9 H Plt Count (130 - 400 /CUMM) 377 MPV (7.4 - 10.4 FL) 7.4 Gran % (42.2 - 75.2 %) 74.2 Lymphocytes % (20.5 - 51.1 %) 14.1 L Monocytes % (1.7 - 9.3 %) 7.6 Eosinophils % (0 - 5 %) 3.4 Basophils % (0.0 - 2.0 %) 0.7 Absolute Granulocytes (1.4 - 6.5 /CUMM) 4.2 Segmented Neutrophils (42.2 - 75.2 %) 78 H Band Neutrophils (0.0 - 5.0 %) 1 Absolute Lymphocytes (1.2 - 3.4 /CUMM) 0.8 L Lymphocytes (20.5 - 51.1 %) 13 L Monocytes (1.7 - 9.3 %) 5 Absolute Monocytes (0.10 - 0.60 /CUMM) 0.4 Eosinophils (0 - 5.0 %) 3 Absolute Eosinophils (0.0 - 0.7 /CUMM) 0.2 Absolute Basophils (0.0 - 0.2 /CUMM) 0 Platelet Estimate (ADEQUATE) VERIFIED BY SMEAR Hypochromic-Microcytic 1+ Anisocytosis 1+ Last 24 Hours of Joel Results: No recent cultures Assessment/Plan ID Impression: Stable, with temperatures and white blood cell count remaining normal, on Vancomycin, now 5 days status post right transmetatarsal amputation for osteomyelitis of the right foot and 12 days status post 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 Podiatry has repeatedly expressed concern regarding his poor blood supply and has recommended a right BKA in the past, and this may still need to be considered if his wound does not heal. His last Vancomycin trough level was 10.8, prompting an increase in his dose, but am concerned about renal toxicity given his renal transplant and, therefore, have decreased his dose. His Vancomycin trough levels will need to be monitored closely as an outpatient. Suggestion: 1. Continue Vancomycin 1250 mg IV every 24 hours to plan on a 6 week course from his negative blood cultures (until December 31) 2. Close monitoring (at least weekly) of his CBC, ESR, BUN/creatinine and Vancomycin trough level while on Vancomycin
[2017-11-30 14:51] VITALS: BP 158/68
[2017-11-30 15:49] VITALS: BP 158/68
== END 2017-11-30 16:50 | DRG 464 ==
LOC: ERH 20:15 → 2NA 23:04 → ERHI 23:04 → CANRESERV 11-18 13:06 → ENRESERV 11-18 13:06 → PACUH 11-18 15:34 → ENRESERV 11-18 16:12 → ENTRNSPT 11-18 16:19 → EDTRNSPTSTS 11-18 16:24 → EDTRNSPT 11-18 16:24 → 2NA 11-18 16:34 → CMPTRNSPT 11-18 16:46 → ENTRNSPT 11-25 15:48 → EDTRNSPTSTS 11-25 15:57 → EDTRNSPT 11-25 15:57 → CMPTRNSPT 11-25 16:00 → ENPENDDIS 11-30 14:21 → 2NA 11-30 16:50
PROVIDERS: Emergency Medicine; Hospitalist; Internal Medicine; Internal Medicine Adolescent Medicine; Internal Medicine Pulmonary Disease; Student in an Organized Health Care Education/Training Program
PROC: 0Y6M0Z9 Detachment at Right Foot, Partial 1st Ray, Open Approach (ICD-10-PCS; 2017-11-18)
PROC: 0Y6M0ZB Detachment at Right Foot, Partial 2nd Ray, Open Approach (ICD-10-PCS; 2017-11-18)
PROC: 3E0T3BZ Introduction of Anesthetic Agent into Peripheral Nerves and Plexi, Percutaneous Approach (ICD-10-PCS; 2017-11-18)
PROC: 0Y6M0ZB Detachment at Right Foot, Partial 2nd Ray, Open Approach (ICD-10-PCS; principal; 2017-11-25)
PROC: 0JBQ0ZZ Excision of Right Foot Subcutaneous Tissue and Fascia, Open Approach (ICD-10-PCS; principal; 2017-11-25)
PROC: 0JBQ0ZZ Excision of Right Foot Subcutaneous Tissue and Fascia, Open Approach (ICD-10-PCS; 2017-11-25)
PROC: 0Y6M0ZC Detachment at Right Foot, Partial 3rd Ray, Open Approach (ICD-10-PCS; 2017-11-25)
PROC: 0Y6M0ZD Detachment at Right Foot, Partial 4th Ray, Open Approach (ICD-10-PCS; 2017-11-25)
PROC: 0Y6M0ZF Detachment at Right Foot, Partial 5th Ray, Open Approach (ICD-10-PCS; 2017-11-25)
PROC: 3E0T3BZ Introduction of Anesthetic Agent into Peripheral Nerves and Plexi, Percutaneous Approach (ICD-10-PCS; 2017-11-25)
DX: M86.171 Other acute osteomyelitis, right ankle and foot (principal); Z94.0 Kidney transplant status; L03.115 Cellulitis of right lower limb; M00.9 Pyogenic arthritis, unspecified; N17.9 Acute kidney failure, unspecified; M86.671 Other chronic osteomyelitis, right ankle and foot; E11.21 Type 2 diabetes mellitus with diabetic nephropathy; K31.84 Gastroparesis; E11.51 Type 2 diabetes mellitus with diabetic peripheral angiopathy without gangrene; E11.43 Type 2 diabetes mellitus with diabetic autonomic (poly)neuropathy; E11.65 Type 2 diabetes mellitus with hyperglycemia; D64.9 Anemia, unspecified; R11.2 Nausea with vomiting, unspecified; Z79.01 Long term (current) use of anticoagulants; I12.9 Hypertensive chronic kidney disease with stage 1 through stage 4 chronic kidney disease, or unspecified chronic kidney disease; Z79.4 Long term (current) use of insulin; E11.319 Type 2 diabetes mellitus with unspecified diabetic retinopathy without macular edema; Z91.14 Patient's other noncompliance with medication regimen; B95.62 Methicillin resistant Staphylococcus aureus infection as the cause of diseases classified elsewhere; Z16.30 Resistance to unspecified antimicrobial drugs; I48.0 Paroxysmal atrial fibrillation; E11.22 Type 2 diabetes mellitus with diabetic chronic kidney disease; E78.5 Hyperlipidemia, unspecified; Z89.421 Acquired absence of other right toe(s); H40.9 Unspecified glaucoma; H91.90 Unspecified hearing loss, unspecified ear; H26.9 Unspecified cataract; K21.9 Gastro-esophageal reflux disease without esophagitis; E55.9 Vitamin D deficiency, unspecified; E89.0 Postprocedural hypothyroidism; Z79.899 Other long term (current) drug therapy; N18.3 Chronic kidney disease, stage 3 (moderate); F32.9 Major depressive disorder, single episode, unspecified; F41.9 Anxiety disorder, unspecified; E87.5 Hyperkalemia
CPT/HCPCS: 2NAP; 87070; 87075; 87184; ERO; 36415; 36592; 71045; 73630-RT; 78452; 81001; 82436; 87040; 87086; 87147; 88305; 93005; 93010; 93016; 93017; 93306; 97110-GO; 97116-GO; 97161-GP; 97530-GO; 99291; A9502; J0131; J0696; J0885-EC; J1245; J1644; J1815; J2001; J2765; J3370; J3490; J7040; J7042; J7060; J7503; J7517

== ENCOUNTER → 2018-01-10 | Day surgery (SDC) | payer OTHER, MEDICARE ==
[~2018-01-10] VITALS: Ht 172.7 cm; Wt 93.4 kg
[~2018-01-10] MED LIST changes: +LEVEMIR100 UNIT/1 SC; +MAGNESIUM OXID400 M1 PO; +OXYCODONE HCL5 M1 PO; +PROCRIT20000 UNIT SC; +SENNA8.6 M3 PO; +VANCOMYCIN HCL1 G1 IV
--- NOTE | 2018-01-10 14:45 | Operative Report ---
Operative/Inv Procedure Report Surgery Date: 01/10/18 Name of Procedure: 1 split-thickness skin graft right foot 2 intraoperative administration of negative pressure wound therapy 3 intraoperative administration of ankle block anesthesia 4 debridement of necrotic ulcer right foot Pre-Operative Diagnosis: 1 nonhealing ulcer right foot Post-Operative Diagnosis: The same Estimated Blood Loss: less than 50ml Surgeon/Operations Research Manager: Rey Dye DPM Anesthesia: moderate sedation, block Operative/Procedure Note Note: After obtaining informed consent the patient was brought to the operating room and placed on the operating table in the supine position. The patient isn't securely fastened to the operating table utilizing safety belt. After administration of IV sedation, 10 mL of 0.5% Marcaine plain was obtained about the patient's right ankle. The right foot and ankle within scrubbed prepped and draped in usual aseptic manner. Attention directed to the distal lateral stump of the right foot, where a probing was identified extending to the distal stump of the fifth metatarsal right. The skin was incised proximally to expose the proximal extent of the metatarsal. Dissection was then carried down to the periosteum incised reflected. Sagittal bone saw was utilized performed through and through osteotomy distal segments freed and passed from the operative field. Nipple was then irrigated with 3 L normal sterile saline fissure 50,000 units of bacitracin. The deep tissues then reprepped with 3-0 Vicryl and the skin edges reapproximated 3-0 nylon. The ulcer at the distal medial foot measuring 15 cm was debrided with a curette. It was then irrigated with 3 L of normal sterile saline fissure 50,000 units of bacitracin. Following this, a 17 1007 inch split-thickness skin graft was elevated from the proximal lateral leg after infiltration 1% lidocaine with epinephrine. Was then meshed at a ratio of 1/2-1 and was fixated at its margins into the recipient site with a skin stapler. There is followed by the application of Adaptic and negative pressure wound therapy. The donor site was dressed with bacitracin, Xeroform and Kerlix. The patient was noted to tolerate both procedure and anesthesia well and the patient was transported from the operating room to recovery with vital signs stable.
== END ==
LOC: STS 02:16
DX: E11.621 Type 2 diabetes mellitus with foot ulcer (principal); L97.412 Non-pressure chronic ulcer of right heel and midfoot with fat layer exposed; E11.22 Type 2 diabetes mellitus with diabetic chronic kidney disease; I12.0 Hypertensive chronic kidney disease with stage 5 chronic kidney disease or end stage renal disease; N18.6 End stage renal disease; Z94.0 Kidney transplant status; Z79.4 Long term (current) use of insulin; I48.2 Chronic atrial fibrillation; Z79.01 Long term (current) use of anticoagulants; Z86.73 Personal history of transient ischemic attack (TIA), and cerebral infarction without residual deficits; Z89.421 Acquired absence of other right toe(s)
CPT/HCPCS: 88304; J0690; J2001; J2250; J3490